=== PATIENT | female | born 1960 | race Caucasian/White ===

== ENCOUNTER 2022-03-28 15:17 | Emergency (ER) | payer OTHER, SELFPAY ==
[2022-03-28 15:18] VITALS: BP 109/54; PULSE 93; RESP 16; TEMP 36.4; O2SAT 97; BMI 29.9
--- NOTE | 2022-03-28 15:47 | EX.ED.DYSGE1 ---
HPI History of Present Illness Chief Complaint: Fever Informant: patient Onset/Context/Timing Onset: Days Context: Gradual Onset Timing: Continuous Current Severity: Mild Maximum Severity: Mild Narrative Narrative: 61-year-old female tested positive for COVID in February also had an GA and received 3 stents was hospitalized at that time. Has history of diabetes, hypertension and chronic kidney disease. Yesterday started having a fever temperature is 10 1-1 02. Treated with ibuprofen and Tylenol. Since today she has had body aches and nausea no vomiting. No cough. No dyspnea. No abdominal pain. No dysuria. Was seen in urgent care and they referred her to the emergency department. Prior similar symptoms: Yes Recent Illness/Hospitalization: Yes PFSH PFSH Allergy/AdvReac Type Severity Reaction Status Date / Time adhesive AdvReac Rash Verified 03/28/22 15:50 Surgical History (Updated 03/28/22 @ 15:51 by Hoda Negron) H/O heart artery stent Social History Smoking Status: Former smoker ROS ROS ED ROS Narrative Fever. Body aches. Review of Systems ROS Unobtainable: Denies due to encephalopathy Constitutional Constitutional ED: Reports fever(s); Denies chills Eyes Eyes: Denies blurry vision ENT ENT ED: Denies ear pain Cardiovascular Cardiovascular: Denies chest pain Respiratory/Chest Respiratory/Chest: Denies cough or dyspnea Gastrointestinal Gastrointestinal: Reports nausea; Denies abdominal pain, constipation, diarrhea or melena Genitourinary Genitourinary ED: Denies dysuria Musculoskeletal Musculoskeletal: Denies arthralgias Integumentary Denies abscess Neurologic Neurologic: Denies headache(s) Psychiatric Psychiatric: Denies anxiety Endocrine Endocrinology: Denies cold intolerance Allergic/Immunologic Allergic/Immunologic ED: Denies mouth swelling, tongue swelling or urticaria EXAM Physical Exam Narrative Exam Narrative: 61-year-old female no acute distress vital signs stable afebrile. H EENT exam unremarkable. Posterior pharynx normal. No erythema or exudate. Mild dryness. Neck nontender no lymphadenopathy. No meningismus. Lungs clear to auscultation bilaterally. Heart regular rhythm no murmur rate about 90. Abdomen soft nontender. Moving all 4 extremities. Calves nontender without edema. No cellulitis. Back nontender. Neurologically awake and alert. Const Vital Signs: 03/28/22 15:18 03/28/22 15:52 03/28/22 16:39 Temperature 97.6 F L 99.2 F H Temperature Source Temporal Oral Pulse Rate 93 96 Respiratory Rate 16 20 H Respiratory Effort Normal Non-Labored Respiratory Pattern Normal Blood Pressure 109/54 L 129/53 H Blood Pressure Mean 72 78 Pulse Ox 97 99 Oxygen Delivery Method Room Air Room Air Positive well nourished and well developed; Negative for cachectic or contractures General Appearance ED: well developed; Negative for cachectic, contractures or pallor Nutritional Appearance: Negative for cachectic HEENT Reports dry mucous membranes Negative for trauma or tenderness Mouth ED: Yes dry mucous membranes Mouth: dry mucous membranes Eyes PERRL and EOMs intact bilaterally General Eye ED: Yes pale conjunctiva; Negative for scleral icterus Neck no lymphadenopathy, supple and no JVD General: Negative for tenderness Chest Wall inspection of chest normal and palpation of chest normal Resp normal respiratory effort and clear to auscultation bilaterally Auscultation: Negative for rales, rhonchi or wheezes Cardio regular rate, regular rhythm, S1 normal heart sound and S2 normal heart sound Rate: Negative for bradycardia or tachycardic Rhythm: Negative for abnormal rhythm GI normal to inspection, nondistended, normoactive bowel sounds, non-tender, non-distended and no masses; Negative for hepatosplenomegaly Inspection: Negative for abdominal distention Auscultation: normoactive bowel sounds; Negative for hyperactive bowel sounds or hypoactive bowel sounds Palpation: soft; Negative for tender, guarding, splenomegaly, mass or rebound tenderness present Back/Spine no CVA tenderness General Back: Negative for CVA tenderness Cervical Spine: Negative for cervical spine tenderness Thoracic Spine / Upper Back: Negative for thoracic spinal tenderness Lumbar Spine / Lower Back: Negative for lumbar spinal tenderness Extremity normal to inspection General Extremety ED: Negative for edema or tenderness General Extremity: Negative for edema Neuro oriented x3 Sensorium / Orientation: alert; Negative for orientation impaired, lethargic or stuporous Motor Exam: strength 5/5 throughout; Negative for general weakness Psych mental status grossly normal Attitude: No agitated Mood & Affect: Negative for depressed Skin no rashes or lesions noted and no wounds General Skin Exam: Negative for jaundice or pallor Rashes: No rashes noted Wounds: Negative for wounds noted MDM MDM MDM Narrative Medical decision making narrative: 61-year-old diabetic female with coronary disease and prior GA presents with a fever. She was COVID-positive a month ago. She worked up for fever. Labs and urinalysis. Chest x-ray. Clinically she looks well. The positive COVID test may be from when she tested positive a month ago and may not be new. Repeat exam she is doing well at 6:40 PM. She will be discharged home to follow-up with her new primary care physician locally that is Dr. Kimi López. She knows to return if worse. Plenty of fluids. Tylenol. Lab Data Attestation: I reviewed the patient's lab results. Lab results narrative: CBC shows white count 9.5 H&H 9.3 and 31.5 history of chronic anemia. Platelets of 250. Electrolytes unremarkable gap of 4 BUN 27 creatinine 2.12 which is consistent with renal insufficiency. Patient has a history of chronic kidney disease stage III. Glucose of 249. LFTs unremarkable. Urinalysis shows no nitrates. 0-5 reds. 10-25 white cells but 5-10 epithelial saucers contaminated. 1+ bacteria. Patient has no old labs available for comparison she does have a history of chronic kidney disease I suspect the anemia is associated with that both of these are chronic. I discussed with the patient and she really did not know specifically her last blood count or creatinine. Labs: Laboratory Results - last 24 hr 03/28/22 03/28/22 03/28/22 16:00 16:00 16:40 WBC 9.5 RBC 3.69 L Hgb 9.3 L Hct 31.5 L MCV 85.4 MCH 25.2 L MCHC 29.5 L RDW Std Deviation 42.0 RDW Coeff of Emilio 13.4 Plt Count 250 MPV 9.6 Immature Gran % (Auto) 1.000 H Neut % (Auto) 89.0 H Lymph % (Auto) 5.1 L Nicholas % (Auto) 4.3 Eos % (Auto) 0.2 Baso % (Auto) 0.4 Absolute Neuts (auto) 8.4 H Absolute Lymphs (auto) 0.48 L Nucleated RBC % 0 Differential Comment SEE COMMENT Platelet Estimate ADEQUATE RBC Morphology NORM C+C Anisocytosis RARE Sodium 136 Potassium 4.6 Chloride 106 Carbon Dioxide 26.0 Anion Gap 4 L BUN 27 H Creatinine 2.12 H Estim Creat Clear Calc 28.11 Est GFR (MDRD) Af Amer 30 L Est GFR (MDRD) Non-Af 25 L BUN/Creatinine Ratio 12.7 Glucose 249 H Calcium 8.8 Total Bilirubin 0.30 AST 24 ALT 28 Alkaline Phosphatase 70 Total Protein 6.9 Albumin 2.8 L Globulin 4.1 Albumin/Globulin Ratio 0.7 L Urine Color Yellow Urine Clarity Sl. Cloudy Urine pH 5.0 Ur Specific Nicholson 1.025 Urine Protein 30 H Urine Glucose (UA) Normal Urine Ketones Negative Urine Occult Blood Negative Urine Nitrite Negative Urine Bilirubin Negative Urine Urobilinogen Normal Ur Leukocyte Esterase 500 H Urine RBC 0-5 SEEN Urine WBC 10-25 SEEN Ur Squamous Epith Cells 5-10 SEEN Urine Bacteria 1+ Urine Mucus 0 SEEN Radiography Chest X-Ray - ED: 1 View, Read by ED Physician, Heart, Lungs, Mediastinum, Bony Structures, No Acute Disease, Chronic Changes, Cardiomegaly, CHF and No Infiltrates Diagnostic Testing: Clinical Impression(s) from Imaging Studies Chest X-Ray 03/28/22 15:55 IMPRESSION: No acute radiographic abnormalities. Electronically Signed: Jeremie Roberson MD at 16:20 EDT , Chest x-ray, portable, single view inter by myself and radiologist shows no acute abnormality. Discharge Plan Triage Chief Complaint: Fever ED Provider: Angus Pimentel Dx/Rx/DC Orders Clinical Impression: Fever, History of COVID-19, History of chronic kidney disease, History of diabetes mellitus Instructions: ED Viral Syndrome (Adult) Primary Care Provider: Care Physician,No Primary Referrals: Kimi López MD [STAFF PHYSICIAN] - 3-5 Days if not improving Care Physician,No Primary [Primary Care Provider] - Activity Restrictions/Additional Instructions: Plenty of fluid and rest. Tylenol for fever. No Motrin due to your kidney function. Follow-up with your doctor if not improving return to emergency department if you are feeling worse. Disposition Disposition: Home, Self Care
[2022-03-28] MEDS: 0.9% Normal Saline 1,000 ML 1000 ML IV (15:49)
--- NOTE | 2022-03-28 15:55 | RAD_ITS ---
INDICATION: fever EXAMINATION/TECHNIQUE: X-RAY - XR Chest 1 View COMPARISON: None. FINDINGS: The lungs are clear. Tortuous and calcified thoracic aorta. The heart is borderline enlarged. No pleural effusion or pneumothorax. Degenerative changes of the thoracic spine. RAD/Chest 1 View (Portable) IMPRESSION: No acute radiographic abnormalities. Electronically Signed: Jeremie Roberson MD at 16:20 EDT ,
[2022-03-28 16:04] LABS: Absolute Lymphocyte Count 0.48 X10^3/uL (0.83-4.51); Absolute Neutrophil Count 8.4 X10^3/uL (2.0-7.7); Basophil# 0.04 X10^3/uL; Basophil% 0.4 % (0-1); Eosinophil# 0.02 X10^3/uL; Eosinophils% 0.2 % (0-5); Hematocrit 31.5 % (37-47); Hemoglobin 9.3 g/dL (12.0-15.0); Lymphocyte # 0.48 X10^3/ul (0.83-4.51); Lymphocyte % 5.1 % (19-41); Mean Corp Hgb Conc 29.5 g/dL (32-36); Mean Corpuscular Hgb 25.2 pg (27.0-32.0); Mean Corpuscular Volume 85.4 fL (81-99); Mean Platelet Vol. 9.6 fl (6.2-12.0); Monocyte# 0.41 X10^3/uL; Monocyte% 4.3 % (0-10); NRBC Flagged by Analyzer 0 % (0-5); Neutrophil # 8.42 X10^3/uL (2.7-7.7); POSITIVE DIFFERENTIAL YES; Platelet Count 250 K/mm3 (150-450); RBC Distribution Width CV 13.4 % (11.6-14.6); Red Blood Count 3.69 M/mm3 (4.2-5.4); White Blood Count 9.5 K/mm3 (4.4-11.0)
[2022-03-28 16:24] LABS: ALB/GLOB Ratio 0.7 RATIO (0.9-2.4); AST(SGOT) 24 U/L (15-37); Alanine Aminotransfer ALT/SGPT 28 U/L (13-56); Albumin, Serum 2.8 g/dL (3.2-5.0); Alkaline Phosphatase 70 U/L (45-117); Anion Gap 4 (5-15); BUN 27 mg/dL (7-18); BUN/Creat Ratio 12.7 RATIO (10-20); Calcium,Total 8.8 mg/dL (8.5-10.1); Chloride 106 mmol/L (98-107); Creatinine, Serum 2.12 mg/dL (0.55-1.02); EST Glomerular Filtration Rate 25 mL/min (>60); Est Glom Filt Rate - Afr Amer 30 mL/min (>60); Estimated Creatinine Clearance 28.11 ml/min; Globulin 4.1 g/dL (2.2-4.2); Glucose 249 mg/dL (74-106); Potassium 4.6 mmol/L (3.5-5.1); Protein, Total 6.9 g/dL (6.4-8.2); Sodium Level 136 mmol/L (136-145)
[2022-03-28 16:39] VITALS: BP 129/53; PULSE 96; RESP 20; TEMP 37.3; O2SAT 99
[2022-03-28] MEDS: Acetaminophen 500 MG Tablet 1000 MG PO (16:52)
[2022-03-28 16:53] LABS: Mucous, Urine 0 SEEN /hpf (<or=2+)
[2022-03-28 16:56] LABS: Differential Indicated SCAN CRITERIA MET
[2022-03-28 16:58] LABS: Anisocytosis RARE; Platelet Estimate ADEQUATE (ADEQ); Red Cell Morphology NORM C+C NORMAL (NORM C&C)
[2022-03-28 17:22] LABS: Color, Urine Yellow (Yellow); Glucose, Dipstick Normal (Normal); Ketone-Dipstick Negative (Negative); Leukocyte Esterase-Dipstick 500 /ul (Negative); Nitrite-Dipstick Negative (Negative); Occult Blood-Urine Negative /ul (Negative); Protein-Dipstick 30 mg/dl (Negative); Specific Gravity, Urine 1.025 (1.002-1.030); Urine Bilirubin Dipstick Negative (Negative); Urine Clarity Sl. Cloudy (Clear); Urine Urobilinogen Normal (Normal)
[2022-03-28 17:39] LABS: Red Blood Cells-Urine 0-5 SEEN /hpf (0-5); White Blood Cells 10-25 SEEN /hpf (0-5)
[2022-03-28 17:40] LABS: Bacteria 1+ /hpf (None Seen); Squamous Epithelial Cells - UA 5-10 SEEN /hpf (5-10)
[2022-03-28 18:59] VITALS: BP 146/63; PULSE 101; RESP 18; TEMP 38.4; O2SAT 94
== END 2022-03-28 19:00 | disposition home or self-care (01) ==
PROVIDERS: Emergency Provider Emergency Medicine; Visit Provider Emergency Medicine
DX: R50.9 Fever, unspecified (principal); E11.22 Type 2 diabetes mellitus with diabetic chronic kidney disease; I25.10 Atherosclerotic heart disease of native coronary artery without angina pectoris; N18.9 Chronic kidney disease, unspecified; I12.9 Hypertensive chronic kidney disease with stage 1 through stage 4 chronic kidney disease, or unspecified chronic kidney disease; Z87.891 Personal history of nicotine dependence; Z86.16 Personal history of COVID-19
CPT/HCPCS: 71045; 80053; 81001; 85025; 87086; 87088; 96360; 99284; J7030; A4216

== ENCOUNTER → 2022-04-30 | Outpatient (CLI) | payer OTHER, MEDICAID, SELFPAY ==
[2022-04-30 09:36] LABS: Bacteria 0 SEEN /hpf (None Seen); Mucous, Urine 0 SEEN /hpf (<or=2+); Red Blood Cells-Urine 0 SEEN /hpf (0-5)
[2022-04-30 10:21] LABS: Absolute Lymphocyte Count 1.22 X10^3/uL (0.83-4.51); Absolute Neutrophil Count 9.2 X10^3/uL (2.0-7.7); Basophil# 0.13 X10^3/uL; Basophil% 1.1 % (0-1); Eosinophil# 0.26 X10^3/uL; Eosinophils% 2.2 % (0-5); Hematocrit 31.5 % (37-47); Hemoglobin 9.3 g/dL (12.0-15.0); Lymphocyte # 1.22 X10^3/ul (0.83-4.51); Lymphocyte % 10.4 % (19-41); Mean Corp Hgb Conc 29.5 g/dL (32-36); Mean Corpuscular Hgb 24.3 pg (27.0-32.0); Mean Corpuscular Volume 82.5 fL (81-99); Mean Platelet Vol. 9.7 fl (6.2-12.0); Monocyte# 0.79 X10^3/uL; Monocyte% 6.7 % (0-10); NRBC Flagged by Analyzer 0 % (0-5); Neutrophil # 9.24 X10^3/uL (2.7-7.7); Neutrophil % 78.9 % (47-70); Platelet Count 381 K/mm3 (150-450); RBC Distribution Width CV 14.4 % (11.6-14.6); RBC Distribution Width SD 43.4 fl (35.1-43.9); Red Blood Count 3.82 M/mm3 (4.2-5.4); White Blood Count 11.7 K/mm3 (4.4-11.0)
[2022-04-30 11:03] LABS: Hemoglobin A1c 6.8 % (3.8-5.6)
[2022-04-30 11:16] LABS: ALB/GLOB Ratio 0.7 RATIO (0.9-2.4); AST(SGOT) 15 U/L (15-37); Alanine Aminotransfer ALT/SGPT 19 U/L (13-56); Albumin, Serum 3.1 g/dL (3.2-5.0); Alkaline Phosphatase 73 U/L (45-117); Anion Gap 8 (5-15); BUN 19 mg/dL (7-18); BUN/Creat Ratio 15.2 RATIO (10-20); Chloride 107 mmol/L (98-107); Cholesterol 167 mg/dL (200); Creatinine, Serum 1.25 mg/dL (0.55-1.02); EST Glomerular Filtration Rate 46 mL/min (>60); Est Glom Filt Rate - Afr Amer 56 mL/min (>60); Globulin 4.3 g/dL (2.2-4.2); Glucose 198 mg/dL (74-106); High Density Lipoprotein 48 mg/dL; Potassium 3.6 mmol/L (3.5-5.1); Protein, Total 7.4 g/dL (6.4-8.2); Sodium Level 140 mmol/L (136-145); Triglycerides 192 mg/dL
[2022-04-30 11:17] LABS: Thyroid Stim Hormone (TSH) 1.55 uIU/mL (0.358-3.74); Very Low Density Lipoprotein 38 mg/dL (5-40)
[2022-04-30 12:09] LABS: Color, Urine Yellow (Yellow); Glucose, Dipstick Normal (Normal); Ketone-Dipstick 5 mg/dl (Negative); Leukocyte Esterase-Dipstick 100 /ul (Negative); Nitrite-Dipstick Negative (Negative); Occult Blood-Urine Negative /ul (Negative); Protein-Dipstick 15 mg/dl (Negative); Urine Bilirubin Dipstick Negative (Negative); Urine Clarity Sl. Cloudy (Clear); Urine Urobilinogen Normal (Normal)
[2022-04-30 12:24] LABS: Squamous Epithelial Cells - UA 5-10 SEEN /hpf (5-10); White Blood Cells 5-10 SEEN /hpf (0-5)
== END | disposition home or self-care (01) ==
LOC: MTLAB 09:34
PROVIDERS: PCP Internal Medicine; Referring Provider Physician Assistant; Visit Provider Physician Assistant
DX: M79.7 Fibromyalgia (principal); M06.9 Rheumatoid arthritis, unspecified; I73.81 Erythromelalgia; Z86.39 Personal history of other endocrine, nutritional and metabolic disease; Z87.448 Personal history of other diseases of urinary system; Z86.16 Personal history of COVID-19
CPT/HCPCS: 36415; 80053; 80061; 81001; 83036; 84443; 85025

== ENCOUNTER → 2022-09-10 | Outpatient (CLI) | payer MEDICAID, SELFPAY ==
[2022-09-10 12:23] LABS: Absolute Lymphocyte Count 1.54 X10^3/uL (0.83-4.51); Absolute Neutrophil Count 10.9 X10^3/uL (2.0-7.7); Basophil# 0.14 X10^3/uL; Eosinophil# 0.35 X10^3/uL; Eosinophils% 2.5 % (0-5); Hematocrit 26.8 % (37-47); Hemoglobin 7.2 g/dL (12.0-15.0); Lymphocyte # 1.54 X10^3/ul (0.83-4.51); Lymphocyte % 11.2 % (19-41); Mean Corp Hgb Conc 26.9 g/dL (32-36); Mean Corpuscular Hgb 19.9 pg (27.0-32.0); Mean Corpuscular Volume 74.2 fL (81-99); Mean Platelet Vol. 9.4 fl (6.2-12.0); Monocyte# 0.76 X10^3/uL; Monocyte% 5.5 % (0-10); NRBC Flagged by Analyzer 0 % (0-5); Neutrophil # 10.92 X10^3/uL (2.7-7.7); Neutrophil % 79.3 % (47-70); Platelet Count 422 K/mm3 (150-450); RBC Distribution Width CV 16.5 % (11.6-14.6); RBC Distribution Width SD 43.9 fl (35.1-43.9); Red Blood Count 3.61 M/mm3 (4.2-5.4); White Blood Count 13.8 K/mm3 (4.4-11.0)
[2022-09-10 12:53] LABS: Vitamin D,25 Hydroxy 23.6 ng/mL
[2022-09-10 13:08] LABS: ALB/GLOB Ratio 0.8 RATIO (0.9-2.4); AST(SGOT) 10 U/L (15-37); Alanine Aminotransfer ALT/SGPT 18 U/L (13-56); Albumin, Serum 2.8 g/dL (3.2-5.0); Alkaline Phosphatase 80 U/L (45-117); Anion Gap 10 (5-15); BUN 18 mg/dL (7-18); BUN/Creat Ratio 17.5 RATIO (10-20); Calcium,Total 8.5 mg/dL (8.5-10.1); Chloride 108 mmol/L (98-107); Cholesterol 128 mg/dL (200); Creatinine, Serum 1.03 mg/dL (0.55-1.02); EST Glomerular Filtration Rate 58 mL/min (>60); Est Glom Filt Rate - Afr Amer 70 mL/min (>60); Free T3 2.4 pg/mL (2.18-3.98); Globulin 3.4 g/dL (2.2-4.2); Glucose 163 mg/dL (74-106); High Density Lipoprotein 55 mg/dL; Potassium 3.8 mmol/L (3.5-5.1); Protein, Total 6.2 g/dL (6.4-8.2); Sodium Level 142 mmol/L (136-145); T4 Free Direct 1.22 ng/dL (0.76-1.46); Thyroid Stim Hormone (TSH) 1.57 uIU/mL (0.358-3.74); Triglycerides 194 mg/dL; Very Low Density Lipoprotein 39 mg/dL (5-40)
[2022-09-12 08:15] LABS: Iron Binding Capacity,Total 410 ug/dL (250-450)
== END | disposition home or self-care (01) ==
LOC: MTLAB 09:44
PROVIDERS: PCP Internal Medicine; Referring Provider Internal Medicine; Visit Provider Internal Medicine
DX: M06.9 Rheumatoid arthritis, unspecified (principal); I73.81 Erythromelalgia; E11.9 Type 2 diabetes mellitus without complications; K21.9 Gastro-esophageal reflux disease without esophagitis; E55.9 Vitamin D deficiency, unspecified; D64.9 Anemia, unspecified
CPT/HCPCS: 36415; 80053; 80061; 82306; 83550; 84439; 84443; 84481; 85025

== ENCOUNTER → 2022-09-11 | Outpatient (CLI) | payer MEDICAID, SELFPAY ==
--- NOTE | 2022-09-11 14:31 | BI_ITS ---
MAMMOGRAPHY - BILATERAL SCREENING REASON FOR EXAM: Female, 62 years old. Routine annual screening examination. PERTINENT HISTORY: Aunt with breast cancer. Remote left excisional breast biopsy. TECHNIQUE: Digital bilateral breast niru (3D mammographic acquisition) in the CC and MLO projections. 2-D mediolateral oblique (MLO) and craniocaudad (CC) views of both breasts were obtained. CAD: Full Field Digital Mammography with Computer Added Detection was performed. COMPARISON: Comparison is made with prior outside examination dated 08/07/2021. FINDINGS: Breast Composition: There are scattered areas of fibroglandular density. There are no dominant masses or suspicious calcifications. Stable asymmetry of breast tissue or more breast tissue is seen in the anterior upper lateral aspect of the left breast as compared to the right side. Benign appearing bilateral axillary lymph nodes. No other significant abnormalities are identified. There has been no significant change since the prior study. BI/SCRN MAMM (CAD)W/NIRU BILAT IMPRESSION: Stable bilateral screening mammogram. Yearly follow-up mammogram recommended. (A) ASSESSMENT CATEGORY: BIRADS Category 2: Benign. A letter regarding these results will be sent to the patient by the facility within 30 days. Approximately 10% of breast cancers are not detected by mammography. A normal mammogram should not delay biopsy of a clinically suspicious abnormality. [id number] Electronically Signed: Franco Sullivan MD at 15:35 EST ,
== END | disposition home or self-care (01) ==
LOC: OPBI 14:30
PROVIDERS: PCP Internal Medicine; Visit Provider Internal Medicine
DX: Z12.31 Encounter for screening mammogram for malignant neoplasm of breast (principal); Z80.3 Family history of malignant neoplasm of breast
CPT/HCPCS: 77063; 77067

== ENCOUNTER → 2022-09-12 | Outpatient (CLI) | payer MEDICAID, SELFPAY ==
[2022-09-12 11:00] LABS: Vitamin B12 601 pg/mL (211-911)
[2022-09-12 12:00] LABS: Iron 12 ug/dL (50-170)
== END | disposition home or self-care (01) ==
LOC: MTLAB 08:46
PROVIDERS: PCP Internal Medicine; Referring Provider Internal Medicine; Visit Provider Internal Medicine
DX: D64.9 Anemia, unspecified (principal)
CPT/HCPCS: 36415; 82607; 82746; 83540

== ENCOUNTER 2022-09-23 09:37 | Outpatient (CLI) | payer MEDICAID, SELFPAY ==
[2022-09-23 10:05] VITALS: BP 127/56; PULSE 85; RESP 16; TEMP 36.6; O2SAT 98; BMI 27.9
[2022-09-23] MEDS: 0.9% NaCl Peripheral Flush Adult/Peds IV (10:30)
[2022-09-23] MEDS: 0.9% NaCl IVPB Med Flush (250 mL) 15 ML IV (10:30)
[2022-09-23 15:15] VITALS: BP 132/63; TEMP 36.3
== END 2022-09-23 23:59 | disposition home or self-care (01) ==
PROVIDERS: PCP Internal Medicine; Referring Provider Internal Medicine; Visit Provider Internal Medicine
DX: D64.9 Anemia, unspecified (principal); N18.31 Chronic kidney disease, stage 3a
CPT/HCPCS: 96365; 96366 ×3; J7050; A4216; J2916

== ENCOUNTER 2022-09-30 09:48 | Outpatient (CLI) | payer MEDICAID, SELFPAY ==
[2022-09-30] MEDS: 0.9% NaCl Peripheral Flush Adult/Peds IV (10:07)
[2022-09-30] MEDS: 0.9% NaCl IVPB Med Flush (250 mL) 15 ML IV (10:09)
[2022-09-30 10:10] VITALS: BP 148/71; PULSE 83; TEMP 36.2
[2022-09-30 14:51] VITALS: BP 158/70; PULSE 88; RESP 16; TEMP 36.3
== END 2022-09-30 23:59 | disposition home or self-care (01) ==
PROVIDERS: PCP Internal Medicine; Referring Provider Internal Medicine; Visit Provider Internal Medicine
DX: D64.9 Anemia, unspecified (principal); N18.31 Chronic kidney disease, stage 3a
CPT/HCPCS: 96365; 96366 ×3; J7050; A4216; J2916

== ENCOUNTER → 2022-10-17 | Outpatient (CLI) | payer MEDICAID, SELFPAY ==
[2022-10-17] MEDS: 0.9% NaCl Peripheral Flush Adult/Peds IV (10:01)
[2022-10-17 10:09] VITALS: BP 151/72; PULSE 105; RESP 16; TEMP 36.1; BMI 43.0
[2022-10-17] MEDS: 0.9% NaCl IVPB Med Flush (250 mL) 15 ML IV (10:17)
[2022-10-17 14:55] VITALS: BP 128/60; PULSE 89; RESP 16; TEMP 36.4
== END | disposition home or self-care (01) ==
PROVIDERS: PCP Internal Medicine; Referring Provider Internal Medicine; Visit Provider Internal Medicine
DX: D64.9 Anemia, unspecified (principal)
CPT/HCPCS: 96374; J7050; A4216; J2916

== ENCOUNTER 2022-10-24 09:44 | Outpatient (CLI) | payer MEDICAID, SELFPAY ==
[2022-10-24] MEDS: 0.9% NaCl Peripheral Flush Adult/Peds IV (09:52)
[2022-10-24] MEDS: 0.9% NaCl IVPB Med Flush (250 mL) 15 ML IV (09:53)
[2022-10-24 10:02] VITALS: BP 130/63; PULSE 94; RESP 16; TEMP 35.9; BMI 27.0
[2022-10-24 14:42] VITALS: BP 116/56; PULSE 82; RESP 16; TEMP 36.3
== END 2022-10-24 23:59 | disposition home or self-care (01) ==
PROVIDERS: PCP Internal Medicine; Referring Provider Internal Medicine; Visit Provider Internal Medicine
DX: D64.9 Anemia, unspecified (principal); N18.30 Chronic kidney disease, stage 3 unspecified
CPT/HCPCS: 96365; 96366 ×3; J7050; A4216; J2916

== ENCOUNTER 2022-11-01 09:26 | Day surgery (SDC) | payer MEDICAID, SELFPAY ==
--- NOTE | 2022-11-01 09:40 | PCM.HP.BLA ---
History and Physical Date of Admission: 11/01/22 Chief Complaint: stomach pain/egd Is patient in pain?: Yes Allergies Seasonal Allergies: Uncoded Allergy (Mild, Verified 10/01/22 15:00) HivesIodinated Contrast Media [IVP dye] Allergy (Verified 10/01/22 15:00) Anaphylaxislevofloxacin [From Levaquin] Allergy (Verified 10/01/22 15:00) PT UNSURE OF REACTIONliraglutide [From Victoza] Allergy (Verified 10/01/22 15:00) PT UNSURE OF REACTIONSulfa (Sulfonamide Antibiotics) [sulfa drugs] Allergy (Verified 10/01/22 15:00) PT UNSURE OF REACTIONacetaminophen [From Percocet] Adverse Reaction (Verified 10/01/22 15:00) Itchingadhesive Adverse Reaction (Verified 10/01/22 15:00) Rashhydrochlorothiazide Adverse Reaction (Verified 10/01/22 15:00) PT UNSURE OF REACTIONhydrocodone Adverse Reaction (Verified 10/01/22 15:00) Itchingmethylprednisolone Adverse Reaction (Verified 10/01/22 15:00) hallucinationsoxycodone [From Percocet] Adverse Reaction (Verified 10/01/22 15:00) Itching Medications amlodipine 5 mg tablet 5 mg PO DAILY 04/02/22 [History Confirmed 08/26/22] aspirin 81 mg tablet,delayed release (Adult Aspirin Regimen) 81 mg PO DAILY 04/02/22 [History Confirmed 08/26/22] famotidine 40 mg tablet 40 mg PO DAILY 04/02/22 [History Confirmed 08/26/22] hydroxychloroquine 200 mg tablet 200 mg PO BID 04/02/22 [History Confirmed 08/26/22] ibuprofen 800 mg tablet 800 mg PO PRN 04/02/22 [History Confirmed 08/26/22] nystatin 100,000 unit/gram topical powder (Nystop) gm topical 04/02/22 [History Confirmed 08/26/22] ondansetron HCl 8 mg tablet 8 mg PO PRN 04/02/22 [History Confirmed 08/26/22] prednisone 5 mg tablet 5 mg PO DAILY 04/02/22 [History Confirmed 08/26/22] venlafaxine 150 mg capsule,extended release 24 hr (Effexor XR) 150 mg PO DAILY 04/02/22 [History Confirmed 08/26/22] venlafaxine 75 mg tablet 75 mg PO DAILY 04/02/22 [History Confirmed 08/26/22] lisinopril 5 mg tablet 5 mg PO DAILY #90 tabs 07/25/22 [Rx Confirmed 08/26/22] carvedilol 3.125 mg tablet 3.125 mg PO BID #180 tabs 07/29/22 [Rx Confirmed 08/26/22] clopidogrel 75 mg tablet 75 mg PO DAILY #90 tabs 07/29/22 [Rx Confirmed 08/26/22] levothyroxine 88 mcg tablet (Euthyrox) 88 mcg PO DAILY #90 tabs 08/15/22 [Rx Confirmed 08/26/22] biotin 5,000 mcg disintegrating tablet 10,000 mcg PO DAILY 08/26/22 [History Confirmed 08/26/22] butalbital 50 mg-acetaminophen 325 mg-caffeine 40 mg-codeine 30 mg cap 1 cap PO Q4H PRN 08/26/22 [History Confirmed 08/26/22] glipizide 10 mg tablet, extended release 24 hr 10 mg PO BID #180 tabs 08/26/22 [Rx] hyoscyamine sulfate 0.125 mg tablet 0.125 mg PO BID-QID PRN 08/26/22 [History Confirmed 08/26/22] valacyclovir 1 gram tablet (Valtrex) 1,000 mg PO DAILY PRN 08/26/22 [History Confirmed 08/26/22] vitamin B complex (B Complex-Vitamin B12 tablet) 1 tab PO DAILY 08/26/22 [History Confirmed 08/26/22] PFSH Medical History? Acid reflux Anemia Breast cyst Carpal tunnel syndrome Erythromelalgia Fibromyalgia Foot fracture, left Foot fracture, right Gastroenteritis Hepatitis History of chronic kidney disease History of diabetes mellitus Infectious mononucleosis Measles Migraines Neuropathy Osteopenia Pneumonia Rheumatoid arthritis Seasonal allergies Shingles Small fiber neuropathy UTI (urinary tract infection) Varicella Surgical History? H/O heart artery stent Hx of appendectomy Hx of cholecystectomy Hx of tonsillectomy Family History?(Updated 10/01/22 @ 14:58 by Alize Lr) Grandfather Cancer Heart diseaseFather Cancer Heart disease DiabetesUncle CancerAunt CancerBrother Heart disease Social History? Smoking Status:? Former smoker alcohol intake:? never substance use type:? does not use caffeine:? Yes Type: carbonated beverages and tea what type of physical activity do you participate in:? none seatbelt use:? always do you feel safe at home:? Yes HPI HPI HPI: 62-year-old female who has had fairly a long-term history of iron deficiency anemia and difficulty with iron absorption.? She is being referred because she has had a very long-term history of abdominal pain.? She said things going back to 2012 she had an upper endoscopy while in [place].? She has had a previous history of cholecystectomy and an appendectomy.? She denies any change in her stool habits.? Her pain improves with hyoscyamine.? A trial of sucralfate was also recommended.? As of September 10, 2022 her white blood cell count was 13.8 with a hemoglobin of 7.2 hematocrit 26.8 platelet count of 4 and 22,000.? BUN is 18 and creatinine 1.03.? Albumin is 2.8 with a total protein of 6.2 The patient is unable to tolerate oral iron.? She has chronic anemia.? Chronic abdominal pain which at times increases in severity.? She thinks her most recent [place] was 2015 [place] She is more recently moved to [place] and has recently become established. She states that she has had at least a couple previous colonoscopies on each occasion she has had polyps found.? She denies bright red blood per rectum or melena.? There is been no unexpected weight loss. She does note generalized epigastric discomfort ROS General General: Yes weight change and fatigue; No appetite, colon cancer or breast cancer HEENT HEENT: No difficulty swallowing, eye injury, eye surgery, swollen glands or hoarseness Endo Endocrine: Yes thyroid disease and diabetes mellitus; No thyroid cancer, Hair loss, heat intolerance or cold intolerance Skin Skin: No rash or changing moles Musc Musculoskeletal: Yes back problems, arthritis and rheumatoid arthritis; No gout or joint pain Cardio Cardiovascular: Yes heart disease, high blood pressure, heart attack and heart stent; No murmur, pacemaker, atrial fibrillation, palpitations, shortness of breat with exertion or chest pain Psych Psychiatric: Yes anxiety; No depression or hearing voices Resp Respiratory: Yes shortness of breath, Yes sleep apnea, Yes cough, No COPD, No asthma, No emphysema and No wheezing Gastro Gastrointestinal: Yes abdominal pain, Yes nausea or vomiting, Yes diarrhea, No constipation, No blood in stool, Yes acid reflux, No hemorrhoids, No ulcers, No gallbladder problem and No black,tarry stools [place] Hematologic: Yes blood thinners, No blood disorders, No bleeding, Yes anemia and No blood clots Neuro Neurologic: Yes numbness and Yes tingling Exam Const General: cooperative and comfortable Other: The patient appears to be quite pale.? She is not in any acute distress Eyes General: appearance normal, both eyes and all related structures Neck Other: Cervical and thoracic kyphosis noted Chest Other: Increased anterior posterior diameter from previous tobacco use/COPD Resp Other: Slightly diminished respiratory excursion, clear in the apices Cardio Rate: regular rate Rhythm: regular rhythm GI Other: Soft, diffusely tender to even light palpation, normal bowel sounds Musc Other: Cervical kyphosis Skin General: no rashes or lesions noted Neuro General: patient alert, patient awake and patient oriented x3 Psych Appearance: grossly normal Assessment and Plan Assessment and Plan (1) Anemia: ?Status:?Acute (2) Abdominal pain: ?Status:?Acute ?Plan: The patient does appear to be quite pale and anemic.? She is on clopidogrel secondary to coronary stents placed secondary to myocardial infarction February 2022.? We will keep her on her anticoagulant.? I propose for her combined esophagogastroduodenoscopy with possible biopsy and colonoscopy with possible biopsy or polypectomy as indicated.? She is aware of technique, benefit, risk and alternatives.? We will utilize monitored anesthesia care. I appreciate the opportunity of assisting with her surgical management.? We will try to schedule and expedite her investigations. Copy: Dr. Kimi Flood M.D., F.A.C.S. I have examined the patient and the H&P has been reviewed. There are no clinical changes since date of exam. Golden Flood M.D., F.A.C.S.
[2022-11-01] MEDS: Lactated Ringers 1,000 ML 15 ML IV (09:59)
[2022-11-01 10:04] VITALS: BP 135/52; PULSE 83; RESP 18; TEMP 36.4; O2SAT 95; BMI 26.8
--- NOTE | 2022-11-01 10:30 | EGD_PTH ---
PATIENT: ESTELLA SU LOC: EN U#:[id number] AGE/SX: 62/F ROOM: RE11/01/[address]: Dr. Golden Flood MD : 1960 BED: DIS: 11/01/2022 SPEC #: [id number] RECD: 11/01/22 12:58 STATUS: JAYSHREE MERRILL #: [id number] LANRE: 11/01/22 10:[address]: Golden Flood DEPT: SURGICAL PATHOLOGY RECD BY: Marycarmen De La Vega ENTERED: 11/04/22 11:18 SP TYPE: EGD BIOPSY DEMARCO DR: Dr. Kimi López MD Tissues: A - Gastric mucous membrane B - COLON BIOPSY Procedures: Surgery Specimen Level IV HEADER OPERATION: [place] with biopsy[place] [place] DIAGNOSIS: Abdominal pain TISSUE SUBMITTED: A ? Gastric antrum for H. pylori, B ? Hepatic flexure mass biopsy MICROSCOPIC DIAGNOSIS A. Gastric antrum, biopsy: Chronic gastritis. See comment. B. Colonic polyp at hepatic flexure, biopsy: Invasive well differentiated adenocarcinoma. See comment. AM:vicente 11/05/2022 COMMENT A. The results of immunohistochemistry for Helicobacter pylori will be reported separately ([id number]). B. Immunohistochemistry ([id number]) supports the above diagnosis. Case has been reviewed in consultation with Dr. Logan who concurs with the above diagnosis. IDC:[id number] MICROSCOPIC DESCRIPTION Slides are reviewed. GROSS DESCRIPTION A - Received in fixative is one container labeled with the patient's name and designated gastric antrum biopsy. The specimen consists of one irregular fragment of light emery soft tissue that measures 0.4 x 0.4 x 0.1 cm. The specimen is totally submitted in one cassette. B - Received in fixative is one container labeled with the patient's name and designated hepatic flexure mass biopsy. The specimen consists of multiple irregular fragments of light emery soft tissue that in aggregate measure 0.6 x 0.8 x 0.1 cm. The specimen is totally submitted in one cassette. / SJ:vicente 11/04/2022 TC:0 CPT: 72269 x2
--- NOTE | 2022-11-01 10:30 | IMM_PTH ---
PATIENT: ESTELLA SU LOC: EN U#:[id number] AGE/SX: 62/F ROOM: RE11/01/[address]: Dr. Golden Flood MD : 1960 BED: DIS: 11/01/2022 SPEC #: [id number] RECD: 11/04/22 09:24 STATUS: JAYSHREE REMireya #: [id number] LANRE: 11/01/22 10:[address]: Golden Flood DEPT: IMMUNOHISTOCHEMISTRY RECD BY: Lorenza Retana ENTERED: 11/04/22 09:25 SP TYPE: IMMUNO OTHR DR: Dr. Kimi López MD Tissues: A - Stomach, NOS B - Stomach, NOS Procedures: H Pylori (initial) MSH2 (add) MLH-1 (add) MSH6 (add) Anti-PMS2 (add) CK20 (add) CK7 (add) MILLER-2 (add) KI-67 (add) P53 (add) Pankeratin (initial) PHYSICIAN & [address] [address] SPECIMEN INFORMATION: Tissue Source: A - Gastric antrum, B ? Hepatic flexure mass Clinical Info: Abdominal pain Specimen Number: [id number] A & B CPT code: 48567 x2, 71732 x9 METHODOLOGY: Deparaffinized sections of prefer/formalin-fixed tissue or PAP/DQ stained slides are incubated with monoclonal/polyclonal antibodies/oligonucleotide probes. Localization is made via biotin free immunoperoxidase method. Appropriate controls are performed and reacted as expected. Results on target cell population are indicated in the following table: RESULTS: ANTIBODY / CLONE RESULT Block A H Pylori (polyclonal) negative Block B AE1-3 (AE1/AE3/PCK26) positive CK7 (OV-TL12/30) negative CK20 (KS20.8) positive, focal MILLER-2 (SP21) positive MLH-1 (M1) positive MSH2 (25D12) positive MSH6 (44) positive PMS2 (VQZ4391) positive Ki-67 (30-9) positive, 75% P53 (DO-7) positive, 80% These tests were developed and their performance characteristics determined by [facility]. They may not have been cleared or approved by the U.S. Food and Drug Administration. The FDA has determined that such clearance or approval is not necessary. The above immunohistochemical/dualISH markers are ordered and reviewed by the Pathologist. INTERPRETATION: A. Gastric antrum, biopsy: Negative for Helicobacter pylori organisms. B. Colonic polyp at hepatic flexure, biopsy: Invasive adenocarcinoma. Result of Microsatellite Instability Study: Negative (no loss of mismatch protein; no microsatellite instability detected). AM:vicente 11/05/2022
[2022-11-01 11:01] LABS: Bedside Glucose 257 mg/dL (74-106)
--- NOTE | 2022-11-01 11:34 | OP.EGD_ITS ---
Patient Name: Lisbeth Craven Procedure Date: 11/01/2022 10:51 AM Date of : 1960 Age: 62 Procedure: Upper GI endoscopy Indications: Generalized abdominal pain Providers: Golden Flood MD Referring MD: Golden Flood MD Medicines: See the Anesthesia note for documentation of the administered medications Complications: No immediate complications. Procedure: Pre-Anesthesia Assessment: - Prior to the procedure, a History and Physical was performed, and patient medications and allergies were reviewed. The patient's tolerance of previous anesthesia was also reviewed. The risks and benefits of the procedure and the sedation options and risks were discussed with the patient. All questions were answered, and informed consent was obtained. Prior Anticoagulants: The patient has taken Plavix (clopidogrel), last dose was day of procedure. ASA Grade Assessment: III - A patient with severe systemic disease. After reviewing the risks and benefits, the patient was deemed in satisfactory condition to undergo the procedure. After obtaining informed consent, the endoscope was passed under direct vision. Throughout the procedure, the patient's blood pressure, pulse, and oxygen saturations were monitored continuously. The pediatric colonoscope was introduced through the mouth, and advanced to the second part of duodenum. The upper GI endoscopy was accomplished without difficulty. The patient tolerated the procedure well. Scope In: 11:03:12 AM Scope Out: 11:10:22 AM Total Procedure Duration Time 0 hours 7 minutes 10 seconds Findings: The Z-line was regular and was found 40 cm from the incisors. The entire examined stomach was normal. Biopsies were taken with a cold forceps for histology. The examined duodenum was normal. Impression: - Z-line regular, 40 cm from the incisors. - Normal stomach. Biopsied. - Normal examined duodenum. Recommendation: - Discharge patient to home. - Resume previous diet. - Continue present medications. - Return to my office in 1 week. Procedure Code(s): --- Professional --- 71881, Esophagogastroduodenoscopy, flexible, transoral; with biopsy, single or multiple Diagnosis Code(s): --- Professional --- R10.84, Generalized abdominal pain CPT copyright 2017 [employer]. All rights reserved. The codes documented in this report are preliminary and upon pacs specialist review may be revised to meet current compliance requirements. Golden Flood MD 11/01/2022 11:34:00 AM This report has been signed electronically. Number of Addenda: 0 Note Initiated On: 11/01/2022 10:51 AM
[2022-11-01 11:35] VITALS: BP 105/51; BP 135/52; PULSE 76; RESP 18; TEMP 36.4; O2SAT 96
--- NOTE | 2022-11-01 11:35 | OP.CCLET_ITS ---
11/01/2022 Kimi López [facility] [address] [place] [address] Re : Upper GI endoscopy procedure for Lisbeth Craven Dear Dr. López This procedure was performed on Tuesday, November 01, 2022. My impressions and recommendations are as follows: Impressions : - Z-line regular, 40 cm from the incisors. - Normal stomach. Biopsied. - Normal examined duodenum. Recommendations : - Discharge patient to home. - Resume previous diet. - Continue present medications. - Return to my office in 1 week. My findings are described in the full procedure note, which is enclosed. If I can be of further assistance, please feel free to contact me at Doctor phone number(s): Work: . Sincerely, Golden Flood MD 11/01/2022 11:34:00 AM This report has been signed electronically.
--- NOTE | 2022-11-01 11:40 | OP.COLON_ITS ---
Patient Name: Lisbeth Craven Procedure Date: 11/01/2022 11:11 AM Date of : 1960 Age: 62 Procedure: Colonoscopy Indications: Generalized abdominal pain Providers: Golden Flood MD Referring MD: Golden Flood MD Medicines: See the Anesthesia note for documentation of the administered medications Patient Profile: Last Colonoscopy: date unknown. Unable to locate last colonoscopy report. Complications: No immediate complications. Procedure: Pre-Anesthesia Assessment: - Prior to the procedure, a History and Physical was performed, and patient medications and allergies were reviewed. The patient's tolerance of previous anesthesia was also reviewed. The risks and benefits of the procedure and the sedation options and risks were discussed with the patient. All questions were answered, and informed consent was obtained. Prior Anticoagulants: The patient has taken Plavix (clopidogrel), last dose was day of procedure. ASA Grade Assessment: III - A patient with severe systemic disease. After reviewing the risks and benefits, the patient was deemed in satisfactory condition to undergo the procedure. After I obtained informed consent, the scope was passed under direct vision. Throughout the procedure, the patient's blood pressure, pulse, and oxygen saturations were monitored continuously. The pediatric colonoscope was introduced through the anus and advanced to the cecum, identified by appendiceal orifice and ileocecal valve. The colonoscopy was performed without difficulty. The patient tolerated the procedure well. The quality of the bowel preparation was adequate to identify polyps. The ileocecal valve and the appendiceal orifice were photographed. Scope In: 11:12:47 AM Scope Withdrawal Time 0 hours 11 minutes 13 seconds Scope Out: 11:27:28 AM Total Procedure Duration Time 0 hours 14 minutes 41 seconds Findings: Hemorrhoids were found on perianal exam. A fungating non-obstructing medium-sized mass was found at the hepatic flexure. The mass was partially circumferential (involving one-half of the lumen circumference). No bleeding was present. This was biopsied with a cold forceps for histology. Impression: - Hemorrhoids found on perianal exam. - Likely malignant tumor at the hepatic flexure. Biopsied. - Malignant-appearing tumor in the colon. Removal was not done. Tattooed. Recommendation: - Discharge patient to home. - Resume previous diet. - Continue present medications. - Repeat colonoscopy in 1 year for surveillance. - Return to my office in 1 week. Patient will need a right colectomy for definitive treatment. I anticipate outpatient CT scan of the abdomen pelvis. Procedure Code(s): --- Professional --- 07958, Colonoscopy, flexible; with biopsy, single or multiple Diagnosis Code(s): --- Professional --- K64.9, Unspecified hemorrhoids D49.0, Neoplasm of unspecified behavior of digestive system R10.84, Generalized abdominal pain CPT copyright 2017 [employer]. All rights reserved. The codes documented in this report are preliminary and upon enterprise resource analyst review may be revised to meet current compliance requirements. Golden Flood MD 11/01/2022 11:39:49 AM This report has been signed electronically. Number of Addenda: 0 Note Initiated On: 11/01/2022 11:11 AM
[2022-11-01 11:41] VITALS: BP 114/50; BP 135/52; PULSE 74; RESP 18; O2SAT 98
--- NOTE | 2022-11-01 11:41 | OP.CCLET_ITS ---
11/01/2022 Kimi López [facility] [address] [place] [address] Re : Colonoscopy procedure for Lisbeth Craven Dear Dr. López This procedure was performed on Tuesday, November 01, 2022. My impressions and recommendations are as follows: Impressions : - Hemorrhoids found on perianal exam. - Likely malignant tumor at the hepatic flexure. Biopsied. - Malignant-appearing tumor in the colon. Removal was not done. Tattooed. Recommendations : - Discharge patient to home. - Resume previous diet. - Continue present medications. - Repeat colonoscopy in 1 year for surveillance. - Return to my office in 1 week. Patient will need a right colectomy for definitive treatment. I anticipate outpatient CT scan of the abdomen pelvis. My findings are described in the full procedure note, which is enclosed. If I can be of further assistance, please feel free to contact me at Doctor phone number(s): Work: . Sincerely, Golden Flood MD 11/01/2022 11:39:49 AM This report has been signed electronically.
[2022-11-01 11:45] VITALS: BP 115/52; BP 135/52; PULSE 75; RESP 18; O2SAT 97
[2022-11-01 11:55] VITALS: BP 121/55; BP 135/52; PULSE 76; RESP 18; TEMP 36.7; O2SAT 97
[2022-11-01 12:15] LABS: Bedside Glucose 198 mg/dL (74-106)
--- NOTE | 2022-11-01 12:38 | SUR.PHASEII ---
SPOKE TO RK IN CT SCAN, WILL DISCUSS CONTRAST CONCERNS WITH MD SINCE PATIENT LISTS IONATED IV CONTRAST AN ANAPHYLACTIC ALLERGY. DISCHARGING PATIENT TO HOME, TOLD TO EXPECT PHONE CALL.
== END 2022-11-01 13:25 | disposition home or self-care (01) ==
LOC: EN 09:27 → AC 09:28
PROVIDERS: PCP Internal Medicine; Referring Provider Surgery; Visit Provider Surgery
PROC: 0DJD8ZZ Inspection of Lower Intestinal Tract, Via Natural or Artificial Opening Endoscopic (ICD-10-PCS; CPT 45378; principal; 2022-11-01 10:25)
DX: K29.50 Unspecified chronic gastritis without bleeding (principal); E11.9 Type 2 diabetes mellitus without complications; D64.9 Anemia, unspecified; Z87.891 Personal history of nicotine dependence; R10.84 Generalized abdominal pain; K64.9 Unspecified hemorrhoids; D49.0 Neoplasm of unspecified behavior of digestive system; Z79.899 Other long term (current) drug therapy
CPT/HCPCS: 43239; 45380; 82962; 88305; 88341; 88342; J7120; A4648; J2405

== ENCOUNTER → 2022-11-06 | Outpatient (CLI) | payer MEDICAID, SELFPAY | END | disposition home or self-care (01) | PROVIDERS: PCP Internal Medicine; Referring Provider Surgery; Visit Provider Surgery | DX: R10.9 Unspecified abdominal pain (principal) | CPT/HCPCS: J2405 ==

== ENCOUNTER 2022-11-11 09:14 | Inpatient (IN) | payer MEDICAID, SELFPAY ==
--- NOTE | 2022-11-06 07:20 | CT_ITS ---
STUDY: CT ABDOMEN AND PELVIS WITH CONTRAST REASON FOR EXAM: Female, 62 years old. NEW COLON CANCER DIAGNOSES. PRIOR CHOLECYSTECTOMY AND APPENDECTOMY RADIATION DOSAGE (If Supplied By Facility): CTDIvol = ( 16.67 ) mGy, DLP = ( 1100.84 ) mGycm TECHNIQUE: Transaxial images were obtained from the dome of the diaphragm to the symphysis pubis with oral contrast. Oral and amp; IV Readi-CAT and amp; 100mL Isovue-370 was administered. Sagittal and coronal images were reconstructed. Individualized dose optimization techniques were used for this CT. COMPARISON: None. FINDINGS: The visualized lung bases are unremarkable. Coronary artery calcification. There is a 7.6 mm well-defined hypodense nodule in the peripheral lateral aspect of the right lobe liver. This most likely represents a small cyst. The patient is status post cholecystectomy. Normal spleen. Normal pancreas. Normal bilateral adrenal glands. There is a 3.2 cm x 3.2 cm cyst in the upper pole of the right kidney. Multiple small cysts are also seen throughout the mid and inferior poles of the right kidney. Normal left kidney. Normal visualized stomach. Normal small intestine. There is a 4.4 cm x 3.8 cm soft tissue mass in the region of the hepatic flexure. Moderate amount of fecal material is seen in the colon. The patient is status post appendectomy. There is scattered atherosclerotic calcification of the abdominal aorta, without a demonstrated aneurysm. Normal inferior vena cava. There is borderline retroperitoneal lymphadenopathy with enlarged nodes no greater than 10mm in the short axis diameter. Normal urinary bladder. Normal abdominal wall. Disc space narrowing and disc degeneration at the L5-S1 level. Spondylosis at the L2-L3 level. CT/Abdomen/Pelvis WITH Contrast IMPRESSION: Findings suggestive of a 7.6 mm well-defined cyst in the lateral aspect of the right lobe of the liver. Right renal cysts. 4.4 cm x 3.8 sinus soft tissue mass in the region of the hepatic flexure. Electronically Signed: Franco Sullivan MD at 8:03 EST ,
[2022-11-06 08:30] LABS: Hematocrit 29.3 % (37-47); Hemoglobin 8.2 g/dL (12.0-15.0); Mean Corpuscular Hgb 23.3 pg (27.0-32.0); Mean Corpuscular Volume 83.2 fL (81-99); Mean Platelet Vol. 9.8 fl (6.2-12.0); POSITIVE MORPHOLOGY YES; Platelet Count 379 K/mm3 (150-450); RBC Distribution Width CV 22.1 % (11.6-14.6); Red Blood Count 3.52 M/mm3 (4.2-5.4); White Blood Count 10.6 K/mm3 (4.4-11.0)
[2022-11-06 08:39] LABS: Prothrombin Time (Protime)PT. 13.3 SECONDS (11.7-14.9)
[2022-11-06 08:40] LABS: Partial Thromboplast Time 28.3 Seconds (24.1-36.2)
[2022-11-06 08:49] LABS: Hemoglobin A1c 6.1 % (3.8-5.6)
[2022-11-06 08:55] LABS: Magnesium 2.1 mg/dL (1.6-2.6)
[2022-11-06 08:57] LABS: ALB/GLOB Ratio 0.8 RATIO (0.9-2.4); AST(SGOT) 10 U/L (15-37); Alanine Aminotransfer ALT/SGPT 21 U/L (13-56); Albumin, Serum 3.3 g/dL (3.2-5.0); Alkaline Phosphatase 81 U/L (45-117); Anion Gap 12 (5-15); BUN 28 mg/dL (7-18); BUN/Creat Ratio 18.1 RATIO (10-20); Calcium,Total 9.3 mg/dL (8.5-10.1); Chloride 101 mmol/L (98-107); Creatinine, Serum 1.55 mg/dL (0.55-1.02); EST Glomerular Filtration Rate 36 mL/min (>60); Est Glom Filt Rate - Afr Amer 44 mL/min (>60); Globulin 4.4 g/dL (2.2-4.2); Glucose 314 mg/dL (74-106); Potassium 4.7 mmol/L (3.5-5.1); Protein, Total 7.7 g/dL (6.4-8.2); Sodium Level 136 mmol/L (136-145)
[2022-11-06 09:41] LABS: Scan Indicated on CBC? Y/N YES- FLAGS NOTED
--- NOTE | 2022-11-07 09:50 | RAD_ITS ---
STUDY: X-RAY CHEST REASON FOR EXAM: Female, 62 years old. Preop for pelvic surgery TECHNIQUE: PA and lateral views of the chest. COMPARISON: 03/28/2022 FINDINGS: The lungs are clear and expanded. There is no demonstrated pleural abnormality. Normal size heart. Normal mediastinum and raffaele. Normal visualized pulmonary arteries. Normal visualized aortic arch and descending thoracic aorta. Normal visualized thoracic spine. Normal visualized ribs, clavicles, and shoulders. There is no demonstrated abnormality of the visualized soft tissue structures of the upper abdomen. RAD/Chest PA and Lateral IMPRESSION: Normal x-ray examination of the chest. Electronically Signed: Onel Nolasco MD at 10:55 EST ,
[2022-11-07 19:10] LABS: Carcinoembryonic Antigen 2.8 ng/mL (0.0-4.7)
[2022-11-11] VITALS (11 sets, daily range): BP systolic 95–136; BP diastolic 43–63; PULSE 65–82; RESP 16–18; TEMP 36.2–37.1; O2SAT 96–100; BMI 27.3
[2022-11-11] MEDS: Lactated Ringers 1,000 ML 40 ML IV (09:56)
[2022-11-11] MEDS: Acetaminophen 500 MG Tablet 1000 MG PO ×3 (09:57→23:58)
--- NOTE | 2022-11-11 10:04 | PCM.HP.BLA ---
History and Physical Date of Admission: 11/11/22 isit Reasons:?RESULTS/DISCUSS SURGERY Chief Complaint: results /discuss surgery Allergies Iodinated Contrast Media [IVP dye] Allergy (Intermediate, Verified 11/07/22 09:06) HivesSeasonal Allergies: Uncoded Allergy (Mild, Verified 11/07/22 09:06) Hiveslevofloxacin [From Levaquin] Allergy (Verified 11/07/22 09:06) PT UNSURE OF REACTIONliraglutide [From Victoza] Allergy (Verified 11/07/22 09:06) PT UNSURE OF REACTIONSulfa (Sulfonamide Antibiotics) [sulfa drugs] Allergy (Verified 11/07/22 09:06) PT UNSURE OF REACTIONacetaminophen [From Percocet] Adverse Reaction (Verified 11/07/22 09:06) Itchingadhesive Adverse Reaction (Verified 11/07/22 09:06) Rashhydrochlorothiazide Adverse Reaction (Verified 11/07/22 09:06) PT UNSURE OF REACTIONhydrocodone Adverse Reaction (Verified 11/07/22 09:06) Itchingoxycodone [From Percocet] Adverse Reaction (Verified 11/07/22 09:06) Itching Medications amlodipine 5 mg tablet 5 mg PO LUNCH BP 04/02/22 [History Confirmed 11/07/22] aspirin 81 mg tablet,delayed release (Adult Aspirin Regimen) 81 mg PO DAILY HEART 04/02/22 [History Confirmed 11/07/22] famotidine 40 mg tablet 40 mg PO QHS GERD 04/02/22 [History Confirmed 11/07/22] ibuprofen 800 mg tablet 800 mg PO Q6H PRN PRN Pain 04/02/22 [History Confirmed 11/07/22] nystatin 100,000 unit/gram topical powder (Nystop) 100,000 gm topical PRN PRN Skin Cleansing 04/02/22 [History Confirmed 11/07/22] biotin 5,000 mcg disintegrating tablet 10,000 mcg PO DAILY SUPPLEMENT 08/26/22 [History Confirmed 11/07/22] butalbital 50 mg-acetaminophen 325 mg-caffeine 40 mg-codeine 30 mg cap 1 cap PO Q4H PRN Pain 08/26/22 [History Confirmed 11/07/22] hyoscyamine sulfate 0.125 mg tablet 0.125 mg PO BID-QID PRN Cough 08/26/22 [History Confirmed 11/07/22] valacyclovir 1 gram tablet (Valtrex) 1,000 mg PO DAILY PRN outbreak 08/26/22 [History Confirmed 11/07/22] vitamin B complex (B Complex-Vitamin B12 tablet) 1 tab PO DAILY SUPPLEMENT 08/26/22 [History Confirmed 11/07/22] lisinopril 5 mg tablet 5 mg PO QHS BP 10/31/22 [History Confirmed 11/07/22] carvedilol 3.125 mg tablet 3.125 mg PO BID BP/HEART 11/05/22 [History Confirmed 11/07/22] clopidogrel 75 mg tablet 75 mg PO DAILY BLOOD THINNER 11/05/22 [History Confirmed 11/07/22] diphenhydramine HCl 25 mg tablet (Benadryl Allergy) [address] 11/05/22 [History Confirmed 11/07/22] glipizide 10 mg tablet, extended release 24 hr 10 mg PO BID DIABETIC 11/05/22 [History Confirmed 11/07/22] levothyroxine 88 mcg tablet (Euthyrox) 88 mcg PO DAILY THYROID 11/05/22 [History Confirmed 11/07/22] prednisone 5 mg tablet 5 mg PO DAILY RA 11/05/22 [History Confirmed 11/07/22] rosuvastatin 10 mg tablet (Crestor) 10 mg PO QHS CHOLESTEROL 11/05/22 [History Confirmed 11/07/22] venlafaxine 150 mg capsule,extended release 24 hr (Effexor XR) 150 mg PO DAILY DEPRESSION 11/05/22 [History Confirmed 11/07/22] venlafaxine 75 mg tablet 75 mg PO DAILY DEPRESSION 11/05/22 [History Confirmed 11/07/22] hydroxychloroquine 200 mg tablet 200 mg PO BID RA #60 tabs 11/06/22 [Rx Confirmed 11/07/22] ondansetron HCl 8 mg tablet 8 mg PO BID PRN nausea and vomiting #10 tabs 11/06/22 [Rx Confirmed 11/07/22] PFSH Medical History? Acid reflux Anemia Anxiety Breast cyst Cancer Cardiology follow-up encounter Carpal tunnel syndrome Diabetes Dietary restriction Erythromelalgia Fibromyalgia Foot fracture, left Foot fracture, right Former smoker Gastric reflux Gastroenteritis Hepatitis History of chronic kidney disease History of diabetes mellitus History of echocardiogram History of heart attack History of renal disease History of steroid therapy Hypertension Infectious mononucleosis Injury of head and neck Leg cramps Low iron Measles Migraines Neuropathy Osteopenia Post-menopausal Rheumatoid arthritis Rheumatoid arthritis Seasonal allergies Shingles Shortness of breath on exertion Small fiber neuropathy Thyroid disease UTI (urinary tract infection) Surgical History? H/O heart artery stent History of lumbar laminectomy Hx of appendectomy Hx of cholecystectomy Hx of colonoscopy Hx of fusion of cervical spine Hx of release of tendon Hx of tonsillectomy Family History? Grandfather Cancer Heart diseaseFather Cancer Heart disease DiabetesUncle CancerAunt CancerBrother Heart disease Social History? Smoking Status:? Former smoker alcohol intake:? never substance use type:? does not use caffeine:? Yes Type: carbonated beverages and tea what type of physical activity do you participate in:? none seatbelt use:? always do you feel safe at home:? Yes HPI HPI HPI: 62-year-old female.? She returns to follow-up status post a recent combined esophagogastroduodenoscopy and colonoscopy.? I initially got to see her in the office on October 01, 2022.? She was referred by Dr. Kimi López.? By report she had a long-term history of iron deficiency anemia and difficulty with iron resorption.? She has had chronic abdominal pain.? She has had a previous cholecystectomy and appendectomy. 62-year-old female who has had fairly a long-term history of iron deficiency anemia and difficulty with iron absorption.? She is being referred because she has had a very long-term history of abdominal pain.? She said things going back to 2013 she had an upper endoscopy while in [place].? She has had a previous history of cholecystectomy and an appendectomy.? She denies any change in her stool habits.? Her pain improves with hyoscyamine.? A trial of sucralfate was also recommended.? As of September 10, 2022 her white blood cell count was 13.8 with a hemoglobin of 7.2 hematocrit 26.8 platelet count of 4 and 22,000.? BUN is 18 and creatinine 1.03.? Albumin is 2.8 with a total protein of 6.2 The patient is unable to tolerate oral iron.? She has chronic anemia.? Chronic abdominal pain which at times increases in severity.? She thinks her most recent colonoscopy was 2015 and this was done when she lived in the [facility].? She is more recently moved to [place] and has recently become established. She states that she has had at least a couple previous colonoscopies on each occasion she has had polyps found.? She denies bright red blood per rectum or melena.? There is been no unexpected weight loss. She does note generalized epigastric discomfort On November 01, 2022 upper endoscopy demonstrated what appeared to be a normal stomach and normal duodenum.? Biopsy pathology showed chronic gastritis.? H. pylori was negative.? She had a colonoscopy same time a mass was identified at the hepatic flexure biopsy showed invasive well differentiated adenocarcinoma. At my request on November 06, [address] scan of the abdomen pelvis.? I have personally inspected and reviewed these images.? Gallbladder and appendix surgically absent.? Right lower pole kidney cyst and lower pole smaller cysts.? But most pertinently there does appear to be a 4.4 x 3.8 cm soft tissue mass in the region of the hepatic flexure.? This is consistent with the biopsy findings. The patient has a contrast allergy so we did provide her with prednisone treatment prior to that.? That caused her blood sugars to go up to 304 100 but those have resolved.? She also has her chronic kidney disease and I have encouraged her to increase her hydration. November 04, 2022 STUDY:? CT ABDOMEN AND PELVIS WITH CONTRAST REASON FOR EXAM: ? Female, 62 years old.? NEW COLON CANCER DIAGNOSES. PRIOR CHOLECYSTECTOMY AND APPENDECTOMY RADIATION DOSAGE (If Supplied By Facility):? CTDIvol = ( 16.67 ) mGy, DLP = ( 1100.84 ) mGycm TECHNIQUE: ? Transaxial images were obtained from the dome of the diaphragm to the symphysis pubis with oral contrast. Oral? and amp; IV Readi-CAT? and amp; 100mL Isovue-370 was administered.? Sagittal and coronal images were reconstructed. Individualized dose optimization techniques were used for this CT. COMPARISON: ? None. FINDINGS: The visualized lung bases are unremarkable.? Coronary artery calcification. There is a 7.6 mm well-defined hypodense nodule in the peripheral lateral aspect of the right lobe liver.? This most likely represents a small cyst. The patient is status post cholecystectomy.? Normal spleen.? Normal pancreas. Normal bilateral adrenal glands. There is a 3.2 cm x 3.2 cm cyst in the upper pole of the right kidney. Multiple small cysts are also seen throughout the mid and inferior poles of the right kidney.? Normal left kidney. Normal visualized stomach.? Normal small intestine.? There is a 4.4 cm x 3.8 cm soft tissue mass in the region of the hepatic flexure.? Moderate amount of fecal material is seen in the colon.? The patient is status post appendectomy. There is scattered atherosclerotic calcification of the abdominal aorta, without a demonstrated aneurysm.? Normal inferior vena cava.? There is borderline retroperitoneal lymphadenopathy with enlarged nodes no greater than 10mm in the short axis diameter. Normal urinary bladder. Normal abdominal wall.? Disc space narrowing and disc degeneration at the L5-S1 level.? Spondylosis at the L2-L3 level. CT/Abdomen/Pelvis WITH Contrast IMPRESSION: Findings suggestive of a 7.6 mm well-defined cyst in the lateral aspect of the right lobe of the liver. Right renal cysts. 4.4 cm x 3.8 sinus soft tissue mass in the region of the hepatic flexure. ? Electronically Signed: Franco Sullivan MD at 8:03 EST , Exam Const General: cooperative and comfortable Other: The patient appears to be quite pale.? She is not in any acute distress Eyes General: appearance normal, both eyes and all related structures Neck Other: Cervical and thoracic kyphosis noted Chest Other: Increased anterior posterior diameter from previous tobacco use/COPD Resp Other: Slightly diminished respiratory excursion, clear in the apices Cardio Rate: regular rate Rhythm: regular rhythm GI Other: Soft, diffusely tender to even light palpation, normal bowel sounds Musc Other: Cervical kyphosis Skin General: no rashes or lesions noted Neuro General: patient alert, patient awake and patient oriented x3 Psych Appearance: grossly normal ROS General General: Yes weight change and fatigue; No appetite, colon cancer or breast cancer HEENT HEENT: No difficulty swallowing, eye injury, eye surgery, swollen glands or hoarseness Endo Endocrine: Yes thyroid disease and diabetes mellitus; No thyroid cancer, Hair loss, heat intolerance or cold intolerance Skin Skin: No rash or changing moles Musc Musculoskeletal: Yes back problems, arthritis and rheumatoid arthritis; No gout or joint pain Cardio Cardiovascular: Yes heart disease, high blood pressure, heart attack and heart stent; No murmur, pacemaker, atrial fibrillation, palpitations, shortness of breat with exertion or chest pain Psych Psychiatric: Yes anxiety; No depression or hearing voices Resp Respiratory: Yes shortness of breath, Yes sleep apnea, Yes cough, No COPD, No asthma, No emphysema and No wheezing Gastro Gastrointestinal: Yes abdominal pain, Yes nausea or vomiting, Yes diarrhea, No constipation, No blood in stool, Yes acid reflux, No hemorrhoids, No ulcers, No gallbladder problem and No black,tarry stools [place] Hematologic: Yes blood thinners, No blood disorders, No bleeding, Yes anemia and No blood clots Neuro Neurologic: Yes numbness and Yes tingling Assessment and Plan Assessment and Plan (1) Abdominal pain: ?Status:?Acute (2) Anemia: ?Status:?Acute ?Comment: Laboratory of November 06, 2022 demonstrates a white blood cell count of 10.6 with a hemoglobin 8.2 hematocrit 29.3 platelet count 379,000.? BUN 28 creatinine 1.55 with estimated GFR of 36 consistent with chronic kidney disease stage IIIb.? Glucose was elevated at that time at 314 with a hemoglobin A1c of 6.1.? CEA level still pending (3) Chronic kidney disease (CKD) stage G3a/A1, moderately decreased glomerular filtration rate (GFR) between 45-59 mL/min/1.73 square meter and albuminuria creatinine ratio less than 30 mg/g: ?Status:?Chronic (4) Hepatic flexure mass: ?Status:?Acute (5) Colon cancer: ?Status:?Acute ?Plan: I am recommending the patient in ERAS protocol for a planned laparoscopic right colectomy.? The lesion was Cira ink marked at the time of the colonoscopy.? She has acute on top of chronic anemia complicating her presentation.? Her most recent glucose was elevated but this was related to the prednisone given for the CT scan..? She has stage III 3B chronic renal failure.? I will encourage preoperative hydration. Her medical comorbidities place this at increased perioperative risk.? I have discussed with her the technique, benefit, risk, alternatives.? We have scheduled in our expediting her care. I have discussed with her laparoscopic right colectomy with bilateral transabdominal plane block.? I discussed the technique, benefit, risk, alternatives.? I have encouraged early mobilization and use of incentive spirometer.? The patient is anemic but I am very hopeful that we will be able to avoid transfusion secondary her to her diagnosis of colon cancer. She has had an opportunity to ask and have questions answered.? We will proceed as noted.? We have her scheduled for surgery on November 11. Copy: Dr. Kimi Flood M.D., F.A.C.S I have examined the patient and the H&P has been reviewed. There are no clinical changes since date of exam. Golden Flood M.D., F.A.C.S.
--- NOTE | 2022-11-11 10:04 | EX.PCM.DISCH ---
Discharge Instructions Procedure General Surgery Diet Discharge Diet: Light diet - advance as tolerated (if you have questions about your diet instructions, please talk to you doctor.) Activity Discharge Activity: May Not Drive (for 3-5 days or while taking narcotic pain medicine.) May shower in (days): 1 Lifting Restrictions: 10 pounds Dressing / Incision Call your doctor if your incision/area has: Continuous Slow Oozing, Sudden Increased Bleeding, Increased Pain/ Swelling, Increased Redness and Foul Smelling Discharge Call your doctor if you observe: Fever of 101 or Higher Suture Line Care: Avoid Pulling/Pushing and Avoid Pinching/Bending Additional Dressing/Incision Instructions:: Change or remove dressing in 2 days. Leave steri-strips in place for 1 week. Follow Up Care Please Follow Up With: Golden Flood MD When: Call [phone] to make an appointment to be seen in about 10 days. Test Results: You may resume your Plavix tomorrow , November 14, 2022 You may use an iber-rzb-hjadhss product as needed to slow liquidy diarrhea. Discharge Plan Admission Admit Date/Time: 11/11/22 09:14 Primary Reason for Your Visit: Hepatic flexure colon cancer Attending Provider: Golden Flood Primary Care Provider: Kimi López Instructions Additional Instructions / Restrictions: Recommend taking an additional dose of 5 mg prednisone tomorrow if blood glucose is <100. Discharge Orders/Prescriptions Prescriptions: New hydrocodone-acetaminophen 5-325 mg tablet 1 tab PO Q6H PRN (Reason: pain) 3 Days Qty: 10 0RF Continued amlodipine 5 mg tablet 5 mg PO LUNCH aspirin [Adult Aspirin Regimen] 81 mg tablet,delayed release (DR/EC) 81 mg PO DAILY famotidine 40 mg tablet 40 mg PO QHS nystatin [Nystop] 100,000 unit/gram powder 100,000 gm topical PRN PRN (Reason: Skin Cleansing) Label Comments: APPLY TOPICALLY EVERY 8 HOURS ibuprofen 800 mg tablet 800 mg PO Q6H PRN PRN (Reason: Pain) Label Comments: TAKE 1 TABLET BY MOUTH TWICE DAILY NEEDED FOR MILD PAIN qaggijpnpe-eynkgvnfnm-tob-cod [id number] mg capsule 1 cap PO Q4H PRN (Reason: Pain) valacyclovir [Valtrex] 1 gram tablet 1,000 mg PO DAILY PRN (Reason: outbreak) hyoscyamine sulfate 0.125 mg tablet 0.125 mg PO BID-QID PRN (Reason: Cough) biotin 5,000 mcg tablet,disintegrating 10,000 mcg PO DAILY vitamin B complex [B Complex-Vitamin B12] Tablet 1 tab PO DAILY lisinopril 5 mg tablet 5 mg PO QHS venlafaxine 75 mg tablet 75 mg PO DAILY glipizide 10 mg tablet extended release 24hr 10 mg PO BID prednisone 5 mg tablet 5 mg PO DAILY venlafaxine [Effexor XR] 150 mg capsule,extended release 24hr 150 mg PO DAILY clopidogrel 75 mg tablet 75 mg PO DAILY carvedilol 3.125 mg tablet 3.125 mg PO BID levothyroxine [Euthyrox] 88 mcg tablet 88 mcg PO DAILY diphenhydramine HCl [Benadryl Allergy] 25 mg tablet 50 mg PO DIRECTED PRN (Reason: Allergy Symptoms) Rx Instructions: take [address] scan rosuvastatin [Crestor] 10 mg Tablet 10 mg PO QHS hydroxychloroquine 200 mg tablet 200 mg PO BID Qty: 60 0RF ondansetron HCl 8 mg tablet 8 mg PO BID PRN (Reason: nausea and vomiting) Qty: 10 0RF Referrals / Follow Up: Kimi López MD [Primary Care Provider] - (Contact office to follow-up in 1 week to review low blood sugars. ) Golden Flood MD [Med Staff - Active Staff] - (Follow-up in 10 days. You will need to contact our office to schedule an appointment. ) Disposition Disposition (needs filled in before D/C Order can be placed): Home, Self Care
[2022-11-11 10:11] LABS: Bedside Glucose 319 mg/dL (74-106)
[2022-11-11] MEDS: Cefotetan 2 GM in 0.9% NS 100 ML IV (10:46)
[2022-11-11] MEDS: 0.9% Normal Saline (Pres. free 10 ML Vial (10:54)
[2022-11-11] MEDS: BUPIVACAINE LIPOSOME/PF 20 ML VIAL OPERA.SITE (10:54)
[2022-11-11] MEDS: Famotidine 20 MG in 0.9% NS 10 ML 300 MG IV (11:21)
--- NOTE | 2022-11-11 11:35 | COL._PTH ---
PATIENT: ESTELLA SU LOC: MS3 U#:[id number] AGE/SX: 62/F ROOM: [facility] RE11/11/[address]: Dr. Golden Flood MD : 1960 BED: 1 DIS: 11/13/2022 SPEC #: [id number] RECD: 11/11/22 13:13 STATUS: JAYSHREE MOMIN #: [id number] LANRE: 11/11/22 11:[address]: Golden Flood DEPT: SURGICAL PATHOLOGY RECD BY: Marycarmen De La Vega ENTERED: 11/11/22 13:31 SP TYPE: COLON OTHR DR: Dr. Kimi López MD Tissues: Colon, NOS Procedures: Surgery Specimen Level HEADER OPERATION: ERAS, laparoscopic hemicolectomy, lysis of adhesions PRE-OP DIAGNOSIS: Abdominal pain, hepatic flexure mass, colon cancer TISSUE SUBMITTED: Right colon MICROSCOPIC DIAGNOSIS Right colon, right hemicolectomy: Invasive moderately differentiated adenocarcinoma. See cancer summary in the comment section. SJ:rg 11/13/2022 COMMENT COLON CANCER SUMMARY: Procedure ? right hemicolectomy Tumor site ? hepatic flexure Tumor size ? 5 x 4.5 x 3 cm Histologic type - adenocarcinoma Histologic grade ? grade 2, moderately differentiated Tumor extension ? tumor invades muscularis propria. Margins ? All margins uninvolved by invasive carcinoma, high-grade dysplasia, intramucosal carcinoma and adenoma. The tumor is 10 cm away from the distal resection margin. Treatment effect ? no known presurgical therapy. Lymphvascular invasion ? not identified Perineural invasion ? not identified Type of polyp in which invasive carcinoma arose ? none identified Tumor deposits ? not identified Regional lymph nodes: Number of lymph nodes examined - 17 Number of lymph nodes involved - 0 Additional pathologic findings ? inflammatory polyp, cecum Ancillary studies: Please see previous specimen ([id number] / [id number]) Results of microsatellite instability - Negative (no loss of mismatch protein; no microsatellite instability detected). PATHOLOGIC STAGE: pT2 pN0 pMx The above summary is in compliance with [employer] (CAP) Cancer Protocols Checklist and [place] [employer] on Cancer (AJCC), Staging Manual, 8th Ed. Please make reference to previous specimen ([id number]) colonic polyp at hepatic flexure, biopsy with diagnosis of ?invasive well differentiated adenocarcinoma.? Case has been reviewed in consultation with Dr. Borges who concurs with the above diagnosis. IDC:AM MICROSCOPIC DESCRIPTION Slides are reviewed. GROSS DESCRIPTION Received in fixative is one container labeled with the patient's name and designated right colon. The specimen consists of 29 cm of large bowel with attached 5 cm distal ileum. No appendix is present. Located 10 cm from the distal margin of resection (closest mucosal margin) is a polypoid emery-white lesion occupying 50% of the circumference of the bowel and measuring 5 x 4.5 x 3 cm. The serosa in the area of the mass is inked in black ink. Serial sections through the mass do not reveal involvement of underlying bowel wall. A 6 mm emery polyp is present in the cecum. The remainder of the bowel mucosa is free of mass lesions. Attached to the serosal surface is an irregular fragment of grossly unremarkable omentum measuring 25 x 22 x 2 cm. Sections of the omentum does not reveal mass lesions. Dissection of the attached pericolic fatty tissue reveals several nodules resembling lymph nodes. Back Wedger sections are submitted as follows: 1 - mucosal margins of excision, 2 - ileocecal valve and cecal polyp, 3??uninvolved small and large bowel mucosa, 4-7 - tumor, 8-12 - each cassette containing multiple lymph nodes. / AM:vicente 11/12/2022 TC:0 CPT: 46227
--- NOTE | 2022-11-11 13:45 | PCM.OPRPT ---
Report of Operation Date of Procedure: 11/11/22 Pre-Operative Diagnosis: Hepatic flexure colon cancer Post-Operative Diagnosis: Hepatic flexure colon cancer. Intra-abdominal adhesions. Surgery/Procedure Performed:: Laparoscopic lysis of adhesions. Laparoscopic right colectomy. Laparoscopic bilateral transverses abdominis plane block Description of Surgical Findings:: Timeout informed consent was obtained. 62-year-old female was taken to the operating room placed upon the table underwent general endotracheal ovation esthesia the abdomen was sterilely prepped and draped cefotetan 2 g were given intravenously throughout the procedure local anesthetic 20 cc of Exparel mixed with 60 cc of 0.25% Marcaine and 20 cc of saline. This was used as local anesthetic of super vertical incision was created holding sutures of 0 Vicryl placed varies needle inserted and saline drop test performed the abdomen was insufflated with CO2 to a pressure of 10 mm retroverted pressure 10 mm trocar inserted 10 laparoscope inserted no trocar injuries became apparent that there was extensive adhesions of omentum to the anterior abdominal wall extending from the mid right upper abdomen all the way further adhesions to the terminal ileum and to the liver. I placed a 5 mm port under visualization in the epigastric area to the left of midline and then tediously using harmonic scalpel dissected free with the omental adhesions. She also had adhesions in the right lower quadrant and there were adhesions in the left upper quadrant to the liver. Total dissection time for all of these locations 1 hour. Finally then was able to elevate the ileocolic vessels used harmonic scalpel to incise area identified the vessels put 2 hemoclips proximally and 1 distally did have some slight retrograde oozing which I controlled with the harmonic. Then the white line of Toldt was incised. The patient was noted to be very fibrofatty internally. There was evidence of Cira ink staining transmurally in the right upper quadrant a significant mount of fibrofatty tissue was I dissected free the hepatic flexure and then it was heavy overlying omentum I transected this gastrocolic omentum in order to gain access to the middle colic vessels. I had secured those with Hem-o-sandra clips. Due to the black staining visualization was a little bit difficult so at this point I elected to make my exit incision. I extended the supraumbilical incision and then placed a wound protector was able to evacuate the distal small bowel the entire ascending colon hepatic flexure and the proximal transverse colon. Large specimen was significant mount of February omentum. I dissected free the omentum to the remaining transverse colon using harmonic scalpel. I transected the mesentery carefully now that visualization was able to secure the middle colic higher with Hem-o-sandra clips prior to transecting it dissected free the ascending: The ileocolic vessels had been secured Having achieved that I used a KHUSHBU 55 to transect the terminal ileum and the transverse colon. The specimen was submitted. I placed the bowel side to side made enterotomies placed a stapler and then did a functional [id number] anastomosis. I closed the enterotomy sites with a TA 60. Crotch suture of 4-0 silk was placed. Hemostasis was intact there was no spillage. There was a slight amount of bleeding from the staple line consistent with a good blood flow and this was carefully secured with a 4-0 silk. I closed the mesenteric trap with a running 2-0 chromic and inverted some omentum over the stapled ends. Placed that back within the abdomen. The abdomen was reinsufflated hemostasis was intact there was no active bleeding aspirated any fluid remaining. Then removed the trochars removed and wound protector changed to sterile gowns gloves and instruments. 4 towels were placed the fascia was closed with a running #1 PDS. At the umbilical area is a small umbilical hernia and I secured that internally with a [id number] suture of 0 Nurolon. Fascia was closed with a small bite technique. Having then the wounds were closed with interrupted and running subicular 4 Monocryl. Steri-Strips Telfa OpSite dressings applied. Sponge and instrument counts were reported to the surgeon to be correct. All local was utilized. Specimen right colon. Drains none. Blood loss 250 cc. The patient was taken to the recovery area in satisfactory addition without apparent complication Golden Flood M.D., F.A.C.S. Surgeon: Golden Flood Type of Anesthesia: General Anesthesiologist: Navya Hinojosa
[2022-11-11 14:36] LABS: Bedside Glucose 185 mg/dL (74-106)
[2022-11-11 15:40] LABS: Absolute Lymphocyte Count 1.27 X10^3/uL (0.83-4.51); Basophil% 0.5 % (0-1); Eosinophil# 0.19 X10^3/uL; Eosinophils% 0.9 % (0-5); Hematocrit 24.6 % (37-47); Hemoglobin 6.8 g/dL (12.0-15.0); Lymphocyte # 1.27 X10^3/ul (0.83-4.51); Lymphocyte % 5.8 % (19-41); Mean Corp Hgb Conc 27.6 g/dL (32-36); Mean Corpuscular Hgb 23.9 pg (27.0-32.0); Mean Corpuscular Volume 86.3 fL (81-99); Mean Platelet Vol. 9.5 fl (6.2-12.0); Monocyte# 1.15 X10^3/uL; Monocyte% 5.3 % (0-10); NRBC Flagged by Analyzer 0 % (0-5); Neutrophil # 19.04 X10^3/uL (2.7-7.7); Neutrophil % 86.9 % (47-70); POSITIVE MORPHOLOGY YES; Platelet Count 312 K/mm3 (150-450); RBC Distribution Width CV 20.5 % (11.6-14.6); RBC Distribution Width SD 64.7 fl (35.1-43.9); Red Blood Count 2.85 M/mm3 (4.2-5.4); White Blood Count 21.9 K/mm3 (4.4-11.0)
[2022-11-11 16:20] LABS: Differential Comment SCANNED; Differential Indicated SCAN CRITERIA MET
[2022-11-11] MEDS: Ibuprofen 400 MG Tablet 800 MG PO (17:33)
[2022-11-11] MEDS: glipiZIDE XL 5 MG Tablet 10 MG PO (17:35)
[2022-11-11] MEDS: Carvedilol 3.125 MG TABLET PO (17:35)
[2022-11-11] MEDS: Hydroxychloroquine 200 MG Tablet PO (22:20)
[2022-11-11] MEDS: Atorvastatin Calcium 20 MG Tablet PO (22:20)
[2022-11-11] MEDS: Docusate Sodium 100 MG Capsule PO (22:20)
[2022-11-11] MEDS: Famotidine 20 MG Tablet PO (22:20)
[2022-11-11 22:45] LABS: Bedside Glucose 93 mg/dL (74-106)
[2022-11-12] VITALS (20 sets, daily range): BP systolic 90–152; BP diastolic 43–67; PULSE 60–80; RESP 16–18; TEMP 36.6–37.1; O2SAT 94–100
[2022-11-12] MEDS: Lactated Ringers 1,000 ML 40 ML IV (00:02)
[2022-11-12] MEDS: Ibuprofen 400 MG Tablet 800 MG PO ×2 (01:16→20:09)
[2022-11-12 04:46] LABS: Bedside Glucose 56 mg/dL (74-106)
[2022-11-12 04:46] LABS: Bedside Glucose 57 mg/dL (74-106)
[2022-11-12 04:46] LABS: Bedside Glucose 68 mg/dL (74-106)
[2022-11-12 04:46] LABS: Bedside Glucose 71 mg/dL (74-106)
[2022-11-12 04:51] LABS: Hematocrit 21.6 % (37-47); Mean Corp Hgb Conc 27.8 g/dL (32-36); Mean Corpuscular Hgb 23.4 pg (27.0-32.0); Mean Corpuscular Volume 84.4 fL (81-99); Mean Platelet Vol. 9.6 fl (6.2-12.0); POSITIVE MORPHOLOGY YES; Platelet Count 263 K/mm3 (150-450); RBC Distribution Width CV 20.2 % (11.6-14.6); RBC Distribution Width SD 62.6 fl (35.1-43.9); Red Blood Count 2.56 M/mm3 (4.2-5.4); White Blood Count 14.9 K/mm3 (4.4-11.0)
[2022-11-12 05:00] LABS: Scan Indicated on CBC? Y/N YES- FLAGS NOTED
[2022-11-12 05:09] LABS: Anion Gap 8 (5-15); BUN 15 mg/dL (7-18); BUN/Creat Ratio 8.9 RATIO (10-20); Chloride 104 mmol/L (98-107); Creatinine, Serum 1.68 mg/dL (0.55-1.02); EST Glomerular Filtration Rate 33 mL/min (>60); Est Glom Filt Rate - Afr Amer 40 mL/min (>60); Estimated Creatinine Clearance 35.02 ml/min; Glucose 70 mg/dL (74-106); Potassium 3.4 mmol/L (3.5-5.1); Sodium Level 138 mmol/L (136-145)
[2022-11-12 05:11] LABS: Differential Comment SCANNED
[2022-11-12] MEDS: Acetaminophen 500 MG Tablet 1000 MG PO ×3 (05:48→17:58)
[2022-11-12] MEDS: Levothyroxine 88 MCG Tablet PO (05:48)
--- NOTE | 2022-11-12 06:17 | PN.SURG_ITS ---
Subjective Subjective Patient states that she is comfortable at rest. Has had some low blood sugars. Has had difficulties urinating with urinary retention. She has had a straight cath x1. No nausea. No flatus Objective Data Objective Data Vital Signs: Vital Signs Temp Pulse Resp BP Pulse Ox O2 Del Method O2 Flow Rate 97.8 F 75 18 93/47 L 95 Room Air 4 11/12/22 04:38 11/12/22 04:38 11/12/22 04:38 11/12/22 04:38 11/12/22 04:38 11/12/22 04:38 11/11/22 16:19 Oxygen Flow Rate (L/min) 4 Oxygen Delivery Method Room Air Weight: 179 lb 14.355 oz Body Mass Index (BMI) 27.3 Intake & Output: Intake and Output for Last 24 Hours 11/10/22 11/11/22 11/12/22 23:59 23:59 23:59 Intake Total 212 / 1012 1364 / 1364 Output Total 0 / 350 350 / 350 Balance 212 / 662 1014 / 1014 Lab / Micro Data Result Diagrams: 11/12/22 04:40 11/12/22 04:40 Labs: Laboratory Results - last 24 hr 11/11/22 09:41: POC Glucose 319 H 11/11/22 14:13: POC Glucose 185 H 11/11/22 14:50: WBC 21.9 H, RBC 2.85 L, Hgb 6.8 L, Hct 24.6 L, MCV 86.3, MCH 23.9 L, MCHC 27.6 L, RDW Std Deviation 64.7 H, RDW Coeff of Emilio 20.5 H, Plt Count 312, MPV 9.5, Immature Gran % (Auto) 0.600, Neut % (Auto) 86.9 H, Lymph % (Auto) 5.8 L, [place] % (Auto) 5.3, Eos % (Auto) 0.9, Baso % (Auto) 0.5, Absolute Neuts (auto) 19.0 H, Absolute Lymphs (auto) 1.27, Nucleated RBC % 0, Differential Comment SCANNED 11/11/22 21:51: POC Glucose 93 11/12/22 03:33: POC Glucose 57 L 11/12/22 03:50: POC Glucose 56 L 11/12/22 04:07: POC Glucose 68 L 11/12/22 04:25: POC Glucose 71 L 11/12/22 04:40: WBC 14.9 H, RBC 2.56 L, Hgb 6.0 L*, Hct 21.6 L, MCV 84.4, MCH 23.4 L, MCHC 27.8 L, RDW Std Deviation 62.6 H, RDW Coeff of Emilio 20.2 H, Plt Count 263, MPV 9.6, Differential Comment SCANNED, Diff Path Review February11/12/22 04:40: Sodium 138, Potassium 3.4 L, Chloride 104, Carbon Dioxide 26.0, Anion Gap 8, BUN 15, Creatinine 1.68 H, Estim Creat Clear Calc 35.02, Est GFR (MDRD) Af Amer 40 L, Est GFR (MDRD) Non-Af 33 L, BUN/Creatinine Ratio 8.9 L, Glucose 70 L, Calcium 8.0 L 11/12/22 04:40: Blood Type A NEGATIVE, Antibody Screen NEGATIVE 11/12/22 04:40: Crossmatch See Detail Physical Exam Narrative She is alert, does not appear to be any acute distress, easily communicates. Resp normal respiratory effort and clear to auscultation bilaterally GI GI Narrative: Soft, appropriately tender, dressings dry Assessment & Plan Assessment/Plan (1) Colon cancer: (2) Anemia: (3) Type 2 diabetes mellitus: (4) Urinary retention: (5) Hypokalemia: PLAN: Plan Several different postoperative issues. The patient seemingly has done well with her laparoscopic right colectomy. She was notably anemic preoperatively. I am not currently suspicious of finding ongoing blood loss but feel that her current values reflect the amount of fluids that she received intraoperatively. With her cardiac disease however I believe that I will need to replace this. She was already below cardiac levels upon her presentation to me. We will transfuse 2 units of blood Urinary retention may simply be narcotics in decreased mobility. I encouraged the patient to mobilize and ambulate as tolerate Will continue with clear liquids. We will continue to monitor blood sugars. I am hopeful that upon gradual resumption of a closer to normal diet that her sugars will equilibrate. Very mild hypokalemia. Will replace orally. Patient is on chronic prednisone therapy for her arthritis. We will continue current oral dosing. Golden Flood M.D., F.A.C.S.
--- NOTE | 2022-11-12 10:07 | NURSING ---
Addendum entered by Nicole Houser 11/12/22 10:56: 1050 accucheck 96 Addendum entered by Nicole Houser 11/12/22 10:32: 1030 accucheck 61 SALLY Braga notified. patient drinking apple juice and eating Spanish ice Original Note: patient reports feeling warm. ask for blood sugar check, accucheck 42 SALLY Braga at bedside and aware. Patient alert and given grape juice
[2022-11-12] MEDS: predniSONE 5 MG Tablet PO (10:12)
[2022-11-12] MEDS: Aspirin E.C. 81 MG Tablet PO (10:12)
[2022-11-12] MEDS: Venlafaxine XR 150 MG Capsule PO (10:13)
[2022-11-12] MEDS: Venlafaxine HCl 75 MG Tablet PO (10:13)
[2022-11-12] MEDS: Hydroxychloroquine 200 MG Tablet PO (10:13)
[2022-11-12] MEDS: Potassium Chloride Oral Tablet 20 MEQ PO ×2 (10:21→17:58)
--- NOTE | 2022-11-12 10:35 | CASEMGMT ---
SALLY GARCIA Assessment: Face to Face with pt for initial transition planning/care coordination assessment. RN JOSE introduced self and role at [facility], pt voices understanding and consents to assessment. Pt is A/O x4 and answers all questions appropriately at this time. Pt lying in bed with mother at bedside. Pt agreeable to assessment with mother in room. Care providers, pharmacy, and demographics verified/updated. Admitting Dx: lap colectomy R PCP:Maribel Specialists:Remigio, JOCY Preferred Pharmacy: [facility] Retail Insurance: [facility] Prescription Benefit: yes LNOK: Angi Hua, mother Living Arrangements: Pt lives with mother in a two story home with 4 steps to enter without a rail. Pt reports she is I in ADL's and denies concerns at home. Transportation: Pt drives self and denies concerns with transportation. DME/HHC/SNF: Pt has a walker and cane at home. Pt denies hx of HHC or SNF stays. Pt states no concerns with going home at time of dc. Pt is interested in a list of local healthcare providers, she states she needs to find an arthritis doctor. Provided pamphlet. Pt states no further concerns/needs. CM to follow. Advised pt to ask CM if any further question/concerns/needs arise, voices understanding. Pt Goal: Home Plan: Home
[2022-11-12 10:55] LABS: Bedside Glucose 42 mg/dL (74-106)
[2022-11-12 10:55] LABS: Bedside Glucose 61 mg/dL (74-106)
[2022-11-12 11:10] LABS: Bedside Glucose 96 mg/dL (74-106)
[2022-11-12 12:30] LABS: Bedside Glucose 77 mg/dL (74-106)
[2022-11-12 12:33] LABS: Pathologist Review Reviewed
[2022-11-12 14:11] LABS: Bedside Glucose 142 mg/dL (74-106)
[2022-11-12 16:30] LABS: Bedside Glucose 216 mg/dL (74-106)
--- NOTE | 2022-11-12 17:17 | PCM.PN.SRG ---
Subjective Subjective Patient comfortable. Doing well. Multiple loose stools. Objective Data Objective Data Vital Signs: Vital Signs Temp Pulse Resp BP Pulse Ox O2 Del Method O2 Flow Rate 98.2 F 80 16 152/67 H 98 Room Air 4 11/12/22 16:03 11/12/22 16:03 11/12/22 16:03 11/12/22 16:03 11/12/22 16:03 11/12/22 16:03 11/11/22 16:19 Oxygen Flow Rate (L/min) 4 Oxygen Delivery Method Room Air Weight: 179 lb 14.355 oz Body Mass Index (BMI) 27.3 Intake & Output: Intake and Output for Last 24 Hours 11/10/22 11/11/22 11/12/22 23:59 23:59 23:59 Intake Total 212 / 1012 3461.33 / 3461.33 Output Total 0 / 350 2400 / 2400 Balance 212 / 662 1061.33 / 1061.33 Lab / Micro Data Result Diagrams: 11/12/22 04:40 11/12/22 04:40 Labs: Laboratory Results - last 24 hr 11/11/22 21:51: POC Glucose 93 11/12/22 03:33: POC Glucose 57 L 11/12/22 03:50: POC Glucose 56 L 11/12/22 04:07: POC Glucose 68 L 11/12/22 04:25: POC Glucose 71 L 11/12/22 04:40: WBC 14.9 H, RBC 2.56 L, Hgb 6.0 L*, Hct 21.6 L, MCV 84.4, MCH 23.4 L, MCHC 27.8 L, RDW Std Deviation 62.6 H, RDW Coeff of Emilio 20.2 H, Plt Count 263, MPV 9.6, Differential Comment SCANNED, Diff Path Review Reviewed 11/12/22 04:40: Sodium 138, Potassium 3.4 L, Chloride 104, Carbon Dioxide 26.0, Anion Gap 8, BUN 15, Creatinine 1.68 H, Estim Creat Clear Calc 35.02, Est GFR (MDRD) Af Amer 40 L, Est GFR (MDRD) Non-Af 33 L, BUN/Creatinine Ratio 8.9 L, Glucose 70 L, Calcium 8.0 L 11/12/22 04:40: Blood Type A NEGATIVE, Antibody Screen NEGATIVE 11/12/22 04:40: Crossmatch See Detail 11/12/22 10:04: POC Glucose 42 L* 11/12/22 10:30: POC Glucose 61 L 11/12/22 10:53: POC Glucose 96 11/12/22 12:08: POC Glucose 77 11/12/22 13:44: POC Glucose 142 H 11/12/22 16:11: POC Glucose 216 H Assessment & Plan Assessment/Plan (1) Colon cancer: PLAN: Patient is really doing very well 1 day postop. We will advance to transitional diet. I will provide 1 Lomotil to try to slow the looser stools. I am very pleased with her progress. Golden Flood M.D., F.A.C.S.
[2022-11-12] MEDS: Diphenoxylate/Atrop 1 Tablet PO (17:58)
[2022-11-12] MEDS: Carvedilol 3.125 MG TABLET PO (18:00)
[2022-11-12] MEDS: HYDROmorphone 0.5 MG/0.5 ML SYRINGE IV ×2 (18:04→21:25)
[2022-11-12] MEDS: Atorvastatin Calcium 20 MG Tablet PO (21:27)
[2022-11-12] MEDS: Lisinopril 5 MG Tablet PO (21:27)
[2022-11-12] MEDS: Famotidine 20 MG Tablet PO (21:27)
[2022-11-12 21:55] LABS: Bedside Glucose 162 mg/dL (74-106)
[2022-11-12 23:40] LABS: Bedside Glucose 120 mg/dL (74-106)
[2022-11-13] MEDS: Acetaminophen 500 MG Tablet 1000 MG PO ×2 (01:17→05:22)
[2022-11-13 02:20] VITALS: BP 123/48; PULSE 71; RESP 18; TEMP 36.6; O2SAT 97
[2022-11-13] MEDS: Levothyroxine 88 MCG Tablet PO (05:22)
[2022-11-13 06:21] LABS: Absolute Lymphocyte Count 1.83 X10^3/uL (0.83-4.51); Absolute Neutrophil Count 10.5 X10^3/uL (2.0-7.7); Basophil# 0.06 X10^3/uL; Basophil% 0.4 % (0-1); Eosinophil# 0.25 X10^3/uL; Eosinophils% 1.8 % (0-5); Hematocrit 29.3 % (37-47); Hemoglobin 8.7 g/dL (12.0-15.0); Lymphocyte # 1.83 X10^3/ul (0.83-4.51); Lymphocyte % 13.1 % (19-41); Mean Corp Hgb Conc 29.7 g/dL (32-36); Mean Corpuscular Hgb 24.9 pg (27.0-32.0); Mean Corpuscular Volume 83.7 fL (81-99); Mean Platelet Vol. 9.8 fl (6.2-12.0); Monocyte# 1.33 X10^3/uL; Monocyte% 9.5 % (0-10); NRBC Flagged by Analyzer 0 % (0-5); Neutrophil # 10.46 X10^3/uL (2.7-7.7); Neutrophil % 74.7 % (47-70); Platelet Count 247 K/mm3 (150-450); RBC Distribution Width CV 18.6 % (11.6-14.6); RBC Distribution Width SD 57.4 fl (35.1-43.9)
--- NOTE | 2022-11-13 06:29 | PCM.PN.SRG ---
Subjective Subjective She has no complaints. Little bit sore but she walked a lot yesterday. Passing stool and the one Lomotil helped her with that slowing that liquidy diarrhea down. No nausea. Objective Data Objective Data Vital Signs: Vital Signs Temp Pulse Resp BP Pulse Ox O2 Del Method O2 Flow Rate 97.8 F 71 18 123/48 H 97 Room Air 4 11/13/22 02:20 11/13/22 02:20 11/13/22 02:20 11/13/22 02:20 11/13/22 02:20 11/13/22 02:20 11/11/22 16:19 Oxygen Flow Rate (L/min) 4 Oxygen Delivery Method Room Air Weight: 179 lb 14.355 oz Body Mass Index (BMI) 27.3 Intake & Output: Intake and Output for Last 24 Hours 11/11/22 11/12/22 11/13/22 23:59 23:59 23:59 Intake Total 212 / 1012 3461.33 / 3711.33 650 / 650 Output Total 0 / 350 2400 / 3000 1200 / 1200 Balance 212 / 662 1061.33 / 711.33 -550 / -550 Lab / Micro Data Result Diagrams: 11/12/22 04:40 11/12/22 04:40 Labs: Laboratory Results - last 24 hr 11/12/22 04:40: Diff Path Review Reviewed 11/12/22 04:40: Crossmatch See Detail 11/12/22 10:04: POC Glucose 42 L* 11/12/22 10:30: POC Glucose 61 L 11/12/22 10:53: POC Glucose 96 11/12/22 12:08: POC Glucose 77 11/12/22 13:44: POC Glucose 142 H 11/12/22 16:11: POC Glucose 216 H 11/12/22 21:32: POC Glucose 162 H 11/12/22 23:20: POC Glucose 120 H Physical Exam Resp normal respiratory effort GI GI Narrative: Soft, dressings clean and dry, nontender, Assessment & Plan Assessment/Plan (1) Colon cancer: PLAN: I am very impressed with her progress. A.m. labs are pending. Plan discharge today please Golden Flood M.D., F.A.C.S.
[2022-11-13 06:51] LABS: Anion Gap 3 (5-15); BUN 13 mg/dL (7-18); BUN/Creat Ratio 10.2 RATIO (10-20); Calcium,Total 8.5 mg/dL (8.5-10.1); Chloride 115 mmol/L (98-107); Creatinine, Serum 1.28 mg/dL (0.55-1.02); EST Glomerular Filtration Rate 45 mL/min (>60); Est Glom Filt Rate - Afr Amer 54 mL/min (>60); Estimated Creatinine Clearance 45.97 ml/min; Glucose 45 mg/dL (74-106); Potassium 4.2 mmol/L (3.5-5.1); Sodium Level 144 mmol/L (136-145)
[2022-11-13 06:59] VITALS: O2SAT 100
[2022-11-13 07:16] LABS: Bedside Glucose 42 mg/dL (74-106)
[2022-11-13 07:16] LABS: Bedside Glucose 64 mg/dL (74-106)
[2022-11-13 07:45] LABS: Bedside Glucose 107 mg/dL (74-106)
--- NOTE | 2022-11-13 09:04 | PCM.PN.SRG ---
Subjective Subjective Blood glucose it seemed to be responding but now low again. The potassium responded very nicely. Probably suffering from [place]'s secondary to her chronic prednisone use Objective Data Objective Data Vital Signs: Vital Signs Temp Pulse Resp BP Pulse Ox O2 Del Method O2 Flow Rate 98.2 F 63 16 110/47 L 99 Room Air 4 11/13/22 08:39 11/13/22 08:39 11/13/22 08:39 11/13/22 08:39 11/13/22 08:39 11/13/22 08:39 11/11/22 16:19 Oxygen Flow Rate (L/min) 4 Oxygen Delivery Method Room Air Weight: 179 lb 14.355 oz Body Mass Index (BMI) 27.3 Intake & Output: Intake and Output for Last 24 Hours 11/11/22 11/12/22 11/13/22 23:59 23:59 23:59 Intake Total 212 / 1012 3461.33 / 3711.33 650 / 650 Output Total 0 / 350 2400 / 3000 1200 / 1200 Balance 212 / 662 1061.33 / 711.33 -550 / -550 Lab / Micro Data Result Diagrams: 11/13/22 05:21 11/13/22 05:21 Labs: Laboratory Results - last 24 hr 11/12/22 04:40: Diff Path Review Reviewed 11/12/22 04:40: Crossmatch See Detail 11/12/22 10:04: POC Glucose 42 L* 11/12/22 10:30: POC Glucose 61 L 11/12/22 10:53: POC Glucose 96 11/12/22 12:08: POC Glucose 77 11/12/22 13:44: POC Glucose 142 H 11/12/22 16:11: POC Glucose 216 H 11/12/22 21:32: POC Glucose 162 H 11/12/22 23:20: POC Glucose 120 H 11/13/22 05:21: WBC 14.0 H, RBC 3.50 L, Hgb 8.7 L, Hct 29.3 L, MCV 83.7, MCH 24.9 L, MCHC 29.7 L D, RDW Std Deviation 57.4 H, RDW Coeff of Emilio 18.6 H, Plt Count 247, MPV 9.8, Immature Gran % (Auto) 0.500, Neut % (Auto) 74.7 H, Lymph % (Auto) 13.1 L, [place] % (Auto) 9.5, Eos % (Auto) 1.8, Baso % (Auto) 0.4, Absolute Neuts (auto) 10.5 H, Absolute Lymphs (auto) 1.83, Nucleated RBC % 0 11/13/22 05:21: Sodium 144, Potassium 4.2, Chloride 115 H, Carbon Dioxide 26.0, Anion Gap 3 L, BUN 13, Creatinine 1.28 H, Estim Creat Clear Calc 45.97, Est GFR (MDRD) Af Amer 54 L, Est GFR (MDRD) Non-Af 45 L, BUN/Creatinine Ratio 10.2, Glucose 45 L, Calcium 8.5 11/13/22 06:33: POC Glucose 42 L* 11/13/22 06:55: POC Glucose 64 L 11/13/22 07:27: POC Glucose 107 H Assessment & Plan Assessment/Plan (1) Hypoglycemia: PLAN: The patient states that she has had difficulty with her glucose control at home particularly since steroid protectants were given in order to obtain her preoperative CT scan. Current problems may be secondary to [place]'s. We will provide additional oral prednisone supplementation. Patient may need to take increased dosing at home as well. We will recheck today. Golden Flood M.D., F.A.C.S.
--- NOTE | 2022-11-13 09:21 | DS.PCM_ITS ---
Providers Date of Admission: 11/11/22 Date of Discharge: 11/13/22 Primary Care Physician: Dr. Kimi López MD Reason For Visit: LAP COLECTOMY RT Diagnosis Discharge Diagnosis (1) Hypoglycemia: Status: Acute Code(s): E16.2 - Hypoglycemia, unspecified Medications at Discharge Home Medications amlodipine 5 mg tablet 5 mg PO LUNCH BP 04/02/22 aspirin 81 mg tablet,delayed release (Adult Aspirin Regimen) 81 mg PO DAILY HEART 04/02/22 famotidine 40 mg tablet 40 mg PO QHS GERD 04/02/22 ibuprofen 800 mg tablet 800 mg PO Q6H PRN PRN Pain 04/02/22 nystatin 100,000 unit/gram topical powder (Nystop) 100,000 gm topical PRN PRN Skin Cleansing 04/02/22 biotin 5,000 mcg disintegrating tablet 10,000 mcg PO DAILY SUPPLEMENT 08/26/22 butalbital 50 mg-acetaminophen 325 mg-caffeine 40 mg-codeine 30 mg cap 1 cap PO Q4H PRN Pain 08/26/22 hyoscyamine sulfate 0.125 mg tablet 0.125 mg PO BID-QID PRN Cough 08/26/22 valacyclovir 1 gram tablet (Valtrex) 1,000 mg PO DAILY PRN outbreak 08/26/22 vitamin B complex (B Complex-Vitamin B12 tablet) 1 tab PO DAILY SUPPLEMENT 08/26/22 lisinopril 5 mg tablet 5 mg PO QHS BP 10/31/22 carvedilol 3.125 mg tablet 3.125 mg PO BID BP/HEART 11/05/22 clopidogrel 75 mg tablet 75 mg PO DAILY BLOOD THINNER 11/05/22 diphenhydramine HCl 25 mg tablet (Benadryl Allergy) 50 mg PO DIRECTED PRN Allergy Symptoms 11/05/22 glipizide 10 mg tablet, extended release 24 hr 10 mg PO BID DIABETIC 11/05/22 levothyroxine 88 mcg tablet (Euthyrox) 88 mcg PO DAILY THYROID 11/05/22 prednisone 5 mg tablet 5 mg PO DAILY RA 11/05/22 rosuvastatin 10 mg tablet (Crestor) 10 mg PO QHS CHOLESTEROL 11/05/22 venlafaxine 150 mg capsule,extended release 24 hr (Effexor XR) 150 mg PO DAILY DEPRESSION 11/05/22 venlafaxine 75 mg tablet 75 mg PO DAILY DEPRESSION 11/05/22 hydroxychloroquine 200 mg tablet 200 mg PO BID RA #60 tabs 11/06/22 ondansetron HCl 8 mg tablet 8 mg PO BID PRN nausea and vomiting #10 tabs 11/06/22 hydrocodone-acetaminophen 5-325mg 5mg-325mg 1 tab PO Q6H PRN pain 3 days #10 tabs 11/13/22 Hospital Course Operations - (Laparoscopic lysis of adhesions. Laparoscopic right colectomy. Laparoscopic bilateral transverses abdominis plane block) Summary of Care Provided Minutes Spent on Discharge: 20 Hospital Course: Patient is a 62 y/o F who presented for an elective laparoscopic right hemicolectomy for colon cancer. Dr. Flood performed a Laparoscopic lysis of adhesions, Laparoscopic right colectomy, and Laparoscopic bilateral transverses abdominis plane block on 11/11/22. Patient tolerated the procedure well. Final pathology pending. Patient had some hypoglycemic events during her hospitalization. Additional prednisone was provided totally 15 mg of prednisone, which brought her blood glucose back to normal. Patient seemed to return to normal. Patient was also noted to have diarrhea and was provided Lomotil which helped to slow the loose stools. Patient had an uncomplicated hospitalization. Upon discharge, patient was tolerating a transitional diet. Patient denies nausea, vomiting. Positive flatus and bowel movements. Abdominal pain controlled with Tylenol. Patient notes discomfort with positional movement. Patient instructed to follow-up with her PCP in 1 week and follow-up with our office in 10 days. Weight / BMI Weight Weight: 179 lb 14.355 oz Body Mass Index (BMI) 27.3 ABG / Lab / Microbiology Data Result Diagrams: 11/13/22 05:21 11/13/22 05:21 Laboratory: Laboratory Results - last 24 hr 11/12/22 04:40: Diff Path Review Reviewed 11/12/22 04:40: Crossmatch See Detail 11/12/22 10:04: POC Glucose 42 L* 11/12/22 10:30: POC Glucose 61 L 11/12/22 10:53: POC Glucose 96 11/12/22 12:08: POC Glucose 77 11/12/22 13:44: POC Glucose 142 H 11/12/22 16:11: POC Glucose 216 H 11/12/22 21:32: POC Glucose 162 H 11/12/22 23:20: POC Glucose 120 H 11/13/22 05:21: WBC 14.0 H, RBC 3.50 L, Hgb 8.7 L, Hct 29.3 L, MCV 83.7, MCH 24.9 L, MCHC 29.7 L D, RDW Std Deviation 57.4 H, RDW Coeff of Emilio 18.6 H, Plt Count 247, MPV 9.8, Immature Gran % (Auto) 0.500, Neut % (Auto) 74.7 H, Lymph % (Auto) 13.1 L, [place] % (Auto) 9.5, Eos % (Auto) 1.8, Baso % (Auto) 0.4, Absolute Neuts (auto) 10.5 H, Absolute Lymphs (auto) 1.83, Nucleated RBC % 0 11/13/22 05:21: Sodium 144, Potassium 4.2, Chloride 115 H, Carbon Dioxide 26.0, Anion Gap 3 L, BUN 13, Creatinine 1.28 H, Estim Creat Clear Calc 45.97, Est GFR (MDRD) Af Amer 54 L, Est GFR (MDRD) Non-Af 45 L, BUN/Creatinine Ratio 10.2, Glucose 45 L, Calcium 8.5 11/13/22 06:33: POC Glucose 42 L* 11/13/22 06:55: POC Glucose 64 L 11/13/22 07:27: POC Glucose 107 H D/C Instructions Discharge Diet: Light diet - advance as tolerated (if you have questions about your diet instructions, please talk to you doctor.) May shower in (days): 1 Call your doctor if your incision/area has: Continuous Slow Oozing, Sudden Increased Bleeding, Increased Pain/ Swelling, Increased Redness and Foul Smelling Discharge Call your doctor if you observe: Fever of 101 or Higher Suture Line Care: Avoid Pulling/Pushing and Avoid Pinching/Bending Additional Dressing/Incision Instructions: Change or remove dressing in 2 days. Leave steri-strips in place for 1 week. Please Follow Up With: Golden Flood MD When: Call [phone] to make an appointment to be seen in about 10 days. Meaningful Use Info Meaningful Use Diagnoses (Choose all that apply): None applicable Discharge Plan Admission Admit Date/Time: 11/11/22 09:14 Primary Reason for Your Visit: Hepatic flexure colon cancer Attending Provider: Golden Flood Primary Care Provider: Kimi López Instructions Additional Instructions / Restrictions: Recommend taking an additional dose of 5 mg prednisone tomorrow if blood glucose is <100. Discharge Orders/Prescriptions Prescriptions: New hydrocodone-acetaminophen 5-325 mg tablet 1 tab PO Q6H PRN (Reason: pain) 3 Days Qty: 10 0RF Continued amlodipine 5 mg tablet 5 mg PO LUNCH aspirin [Adult Aspirin Regimen] 81 mg tablet,delayed release (DR/EC) 81 mg PO DAILY famotidine 40 mg tablet 40 mg PO QHS nystatin [Nystop] 100,000 unit/gram powder 100,000 gm topical PRN PRN (Reason: Skin Cleansing) Label Comments: APPLY TOPICALLY EVERY 8 HOURS ibuprofen 800 mg tablet 800 mg PO Q6H PRN PRN (Reason: Pain) Label Comments: TAKE 1 TABLET BY MOUTH TWICE DAILY NEEDED FOR MILD PAIN rrdlandvmg-qvabremcrb-rwz-cod [id number] mg capsule 1 cap PO Q4H PRN (Reason: Pain) valacyclovir [Valtrex] 1 gram tablet 1,000 mg PO DAILY PRN (Reason: outbreak) hyoscyamine sulfate 0.125 mg tablet 0.125 mg PO BID-QID PRN (Reason: Cough) biotin 5,000 mcg tablet,disintegrating 10,000 mcg PO DAILY vitamin B complex [B Complex-Vitamin B12] Tablet 1 tab PO DAILY lisinopril 5 mg tablet 5 mg PO QHS venlafaxine 75 mg tablet 75 mg PO DAILY glipizide 10 mg tablet extended release 24hr 10 mg PO BID prednisone 5 mg tablet 5 mg PO DAILY venlafaxine [Effexor XR] 150 mg capsule,extended release 24hr 150 mg PO DAILY clopidogrel 75 mg tablet 75 mg PO DAILY carvedilol 3.125 mg tablet 3.125 mg PO BID levothyroxine [Euthyrox] 88 mcg tablet 88 mcg PO DAILY diphenhydramine HCl [Benadryl Allergy] 25 mg tablet 50 mg PO DIRECTED PRN (Reason: Allergy Symptoms) Rx Instructions: take [address] scan rosuvastatin [Crestor] 10 mg Tablet 10 mg PO QHS hydroxychloroquine 200 mg tablet 200 mg PO BID Qty: 60 0RF ondansetron HCl 8 mg tablet 8 mg PO BID PRN (Reason: nausea and vomiting) Qty: 10 0RF Referrals / Follow Up: Kimi López MD [Primary Care Provider] - (Contact office to follow-up in 1 week to review low blood sugars. ) Golden Flood MD [Med Staff - Active Staff] - (Follow-up in 10 days. You will need to contact our office to schedule an appointment. ) Disposition Disposition (needs filled in before D/C Order can be placed): Home, Self Care Charges/Coding Visit Charges Inpatient E&M: 42803 Disch Hosp (No charge; post-op)
[2022-11-13] MEDS: Venlafaxine XR 150 MG Capsule PO (09:41)
[2022-11-13] MEDS: Aspirin E.C. 81 MG Tablet PO (09:41)
[2022-11-13] MEDS: Docusate Sodium 100 MG Capsule PO (09:42)
[2022-11-13] MEDS: Carvedilol 3.125 MG TABLET PO (09:42)
[2022-11-13] MEDS: Hydroxychloroquine 200 MG Tablet PO (09:42)
[2022-11-13] MEDS: Potassium Chloride Oral Tablet 20 MEQ PO (09:42)
[2022-11-13] MEDS: predniSONE 5 MG Tablet PO (09:43)
[2022-11-13] MEDS: Venlafaxine HCl 75 MG Tablet PO (09:43)
[2022-11-13] MEDS: predniSONE 10 MG Tablet PO (09:53)
[2022-11-13 11:35] LABS: Bedside Glucose 192 mg/dL (74-106)
[2022-11-13 12:12] VITALS: BP 118/46; PULSE 74; RESP 18; TEMP 36.8; O2SAT 96
== END 2022-11-13 14:10 | disposition home or self-care (01) | DRG 231 ==
LOC: ACINP 09:15 → MS3 15:40
PROVIDERS: Anesthesiology; Admitting Provider Surgery; PCP Internal Medicine; Referring Provider Surgery; Visit Provider Surgery
PROC: 0DTF4ZZ Resection of Right Large Intestine, Percutaneous Endoscopic Approach (ICD-10-PCS; CPT 44205; principal; 2022-11-11 11:15)
DX: C18.3 Malignant neoplasm of hepatic flexure (principal); E11.649 Type 2 diabetes mellitus with hypoglycemia without coma; D64.9 Anemia, unspecified; E87.6 Hypokalemia; N18.9 Chronic kidney disease, unspecified; Z87.891 Personal history of nicotine dependence; R33.9 Retention of urine, unspecified; Z79.52 Long term (current) use of systemic steroids
CPT/HCPCS: 36415; 71046; 74177; 80048; 80053; 82378; 82962; 83036; 83735; 85025; 85027; 85610; 85730; 86850; 86900; 86901; 86920; 88309; 93005; 94668; 94762; 99252; J7040; J7120; P9016; Q9967; C1760; G0463; J2405; J3475; J3490

== ENCOUNTER 2022-11-15 08:52 | Inpatient (IN) | payer MEDICAID, SELFPAY ==
[2022-11-15] VITALS (7 sets, daily range): BP systolic 140–155; BP diastolic 55–73; PULSE 90–110; RESP 16–18; TEMP 36.5–36.8; O2SAT 93–95; BMI 29.5; BMI 28.3
--- NOTE | 2022-11-15 09:07 | CT_ITS ---
STUDY: CT ABDOMEN AND PELVIS WITHOUT CONTRAST REASON FOR EXAM: Female, 62 years old. Recent colectomy of the hepatic flexure. Patient presents with the history of nausea and abdominal pain. RADIATION DOSAGE (If Supplied By Facility): CTDIvol = ( 13.41 ) mGy, DLP = ( 797.24 ) mGycm TECHNIQUE: Transaxial images were obtained from the dome of the diaphragm to the symphysis pubis without oral contrast, and without intravenous contrast. Sagittal and coronal images were reconstructed. Individualized dose optimization techniques were used for this CT. COMPARISON: Comparison is made with prior study dated 05/06/2023. FINDINGS: Calcified right infrahilar lymph nodes and subcarinal lymph nodes. Mild degree of increased markings at the lung bases suggestive of bibasilar atelectasis. Coronary artery calcification. Normal liver. Small amount of the perihepatic fluid. Stable 7.6 mm cyst in the posterior aspect of the right lobe of the liver in the region of the dome of the liver. The patient is status post cholecystectomy. Normal spleen. Normal pancreas. Normal bilateral adrenal glands. Stable right renal cysts. Stable left renal cyst. Normal visualized stomach. There is minimal fluid distention of the small bowel loops down to the level of the terminal ileum. This may represent an ileus pattern. The patient is status post right hemicolectomy with anastomosis in the mid transverse colon. Increased markings are seen in the surrounding peritoneal fat in keeping with the recent surgical intervention. Normal abdominal aorta. Normal inferior vena cava. Normal retroperitoneum. Normal urinary bladder. Small amount of free fluid is seen in the cul-de-sac. Normal abdominal wall. There are degenerative changes of the visualized lumbar spine. CT/Abdomen/Pelvis without Cont IMPRESSION: Status post right hemicolectomy with anastomosis in the mid transverse colon. Postoperative changes are seen within the mesenteric fat at that site. There is no evidence of a anastomotic leak. Mildly fluid-filled distended small bowel loops down to the anastomotic site. This may represent an ileus pattern. Small amount of perihepatic fluid as well as fluid in the cul-de-sac. Electronically Signed: Franco Sullivan MD at 10:21 EST ,
--- NOTE | 2022-11-15 09:09 | EX.ED.DYSGE1 ---
HPI History of Present Illness Chief Complaint: Nausea/Vomiting Informant: patient Onset/Context/Timing Onset: Yesterday Narrative Narrative: Patient present secondary to postop abdominal pain and nausea. She had an elective right hemicolectomy on November 11 secondary to colon cancer. She was discharged from the hospital on November 13. Last evening, the evening of November 14 patient developed increased pain with nausea. She has been taking hydrocodone and Zofran without improvement. She did report a small bowel movement last evening. [facility] Medical History (Updated 11/15/22 @ 16:[address] Jackie Cardozo MD) Acid reflux Anemia Anxiety Breast cyst Cancer Cardiology follow-up encounter Carpal tunnel syndrome Diabetes Dietary restriction Erythromelalgia Fibromyalgia Foot fracture, left Foot fracture, right Former smoker Gastric reflux Gastroenteritis Hepatitis History of chronic kidney disease History of diabetes mellitus History of echocardiogram History of heart attack History of renal disease History of steroid therapy Hypertension Infectious mononucleosis Injury of head and neck Leg cramps Low iron Measles Migraines Neuropathy Osteopenia Post-menopausal Rheumatoid arthritis Seasonal allergies Shingles Shortness of breath on exertion Small fiber neuropathy Thyroid disease UTI (urinary tract infection) Home Medications amlodipine 5 mg tablet 5 mg PO LUNCH BP 04/02/22 [History Last Taken 11/14/22] aspirin 81 mg tablet,delayed release (Adult Aspirin Regimen) 81 mg PO DAILY HEART 04/02/22 [History Last Taken 11/14/22] famotidine 40 mg tablet 40 mg PO QHS GERD 04/02/22 [History Last Taken 11/14/22] ibuprofen 800 mg tablet 800 mg PO Q6H PRN PRN Pain 04/02/22 [History Last Taken 11/15/22] nystatin 100,000 unit/gram topical powder (Nystop) 100,000 gm topical PRN PRN Skin Cleansing 04/02/22 [History Last Taken Unknown] biotin 5,000 mcg disintegrating tablet 10,000 mcg PO DAILY SUPPLEMENT 08/26/22 [History Last Taken 11/14/22] butalbital 50 mg-acetaminophen 325 mg-caffeine 40 mg-codeine 30 mg cap 1 cap PO Q4H PRN Pain 08/26/22 [History Last Taken 1 Week Ago ~11/08/22] hyoscyamine sulfate 0.125 mg tablet 0.125 mg PO BID-QID PRN Cough 08/26/22 [History Last Taken Unknown] valacyclovir 1 gram tablet (Valtrex) 1,000 mg PO DAILY PRN outbreak 08/26/22 [History Last Taken Unknown] vitamin B complex (B Complex-Vitamin B12 tablet) 1 tab PO DAILY SUPPLEMENT 08/26/22 [History Last Taken 11/14/22] lisinopril 5 mg tablet 5 mg PO QHS BP 10/31/22 [History Last Taken 11/14/22] carvedilol 3.125 mg tablet 3.125 mg PO BID BP/HEART 11/05/22 [History Last Taken 11/14/22] clopidogrel 75 mg tablet 75 mg PO DAILY BLOOD THINNER 11/05/22 [History Last Taken 11/14/22] glipizide 10 mg tablet, extended release 24 hr 10 mg PO BID DIABETIC 11/05/22 [History Last Taken 11/14/22] levothyroxine 88 mcg tablet (Euthyrox) 88 mcg PO DAILY THYROID 11/05/22 [History Last Taken 11/14/22] prednisone 5 mg tablet 5 mg PO DAILY RA 11/05/22 [History Last Taken 11/14/22] rosuvastatin 10 mg tablet (Crestor) 10 mg PO QHS CHOLESTEROL 11/05/22 [History Last Taken 11/10/22 22:00] venlafaxine 150 mg capsule,extended release 24 hr (Effexor XR) 150 mg PO DAILY DEPRESSION 11/05/22 [History Last Taken 11/14/22] venlafaxine 75 mg tablet 75 mg PO DAILY DEPRESSION 11/05/22 [History Last Taken 11/14/22] hydroxychloroquine 200 mg tablet 200 mg PO BID RA #60 tabs 11/06/22 [Rx Last Taken 11/14/22] hydrocodone-acetaminophen 5-325mg 5mg-325mg 1 tab PO Q6H PRN pain 3 days #10 tabs 11/13/22 [Rx Last Taken 11/15/22] ondansetron HCl 8 mg tablet 8 mg PO Q6H 11/15/22 [History Last Taken 11/15/22] Allergy/AdvReac Type Severity Reaction Status Date / Time Iodinated Contrast Media Allergy Intermediate Hives Verified 11/07/22 09:06 [IVP dye] Seasonal Allergies: Uncoded Allergy Mild Hives Verified 11/07/22 09:06 levofloxacin [From Levaquin] Allergy PT UNSURE Verified 11/15/22 13:26 OF REACTION liraglutide [From Victoza] Allergy dehydration Verified 11/15/22 13:26 - ended up in hospital Sulfa (Sulfonamide Allergy pt states Verified 11/15/22 13:26 Antibiotics) has [sulfa drugs] tolerated some acetaminophen [From Percocet] AdvReac Itching Verified 11/07/22 09:06 adhesive AdvReac Rash Verified 11/07/22 09:06 hydrochlorothiazide AdvReac pt can tke Verified 11/15/22 13:26 tablet, but not capsule hydrocodone AdvReac Itching Verified 11/07/22 09:06 oxycodone [From Percocet] AdvReac Itching Verified 11/07/22 09:06 Family History Grandfather Cancer Heart disease Father Cancer Heart disease Diabetes Uncle Cancer Aunt Cancer Brother Heart disease Surgical History H/O heart artery stent History of lumbar laminectomy Hx of appendectomy Hx of cholecystectomy Hx of colonoscopy Hx of fusion of cervical spine Hx of release of tendon Hx of tonsillectomy Social History Smoking Status: Former smoker alcohol intake: never substance use type: does not use caffeine: Yes Type: carbonated beverages and tea what type of physical activity do you participate in: none seatbelt use: always do you feel safe at home: Yes ROS ROS ED Constitutional Constitutional ED: Denies chills or fever(s) Eyes Eyes: Denies change in vision or discharge from eye(s) ENT ENT ED: Denies discharge from eye(s), rhinorrhea or sore throat Cardiovascular Cardiovascular: Denies chest pain or palpitations Respiratory/Chest Respiratory/Chest: Denies cough or dyspnea Gastrointestinal Gastrointestinal: Reports abdominal pain and nausea; Denies diarrhea or vomiting Genitourinary Genitourinary ED: Denies dysuria Musculoskeletal Musculoskeletal: Denies back pain or extremity pain Integumentary Denies Abrasions or rash Neurologic Neurologic: Denies headache(s) or weakness Psychiatric Psychiatric: Denies anxiety or depression Endocrine Endocrinology: Denies polydipsia or polyuria Allergic/Immunologic Allergic/Immunologic ED: Denies lip swelling or urticaria EXAM Physical Exam Const Vital Signs: 11/15/22 08:53 11/15/22 10:56 11/15/22 11:13 Temperature 98.1 F 97.8 F Temperature Source Oral Temporal Pulse Rate 94 95 Respiratory Rate 16 18 Blood Pressure 141/62 H 140/69 H Blood Pressure Mean 88 92 Pulse Ox 95 95 93 Oxygen Delivery Method Room Air Room Air Positive well nourished and well developed General Appearance ED: well developed Eyes EOMs intact bilaterally Neck no lymphadenopathy Chest Wall inspection of chest normal and palpation of chest normal Resp normal respiratory effort and clear to auscultation bilaterally Cardio regular rate and regular rhythm GI GI Narrative: Abdomen soft and slightly distended. Hypoactive bowel sounds. Surgical sites clean. Extremity normal to inspection Neuro oriented x3 and no sensory deficits noted Motor Exam: strength 5/5 throughout Psych mental status grossly normal Skin no rashes or lesions noted MDM MDM MDM Narrative Medical decision making narrative: Patient was given a dose of Dilaudid and Phenergan for pain and nausea control. IV fluids ordered. Lab work obtained to evaluate for leukocytosis, anemia, electrolyte derangement. CT scan of the abdomen pelvis ordered. Lab Data Attestation: I reviewed the patient's lab results. Labs: Laboratory Results - last 24 hr 11/15/22 11/15/22 09:25 09:25 WBC 17.7 H RBC 4.56 Hgb 11.3 L Hct 38.3 MCV 84.0 MCH 24.8 L MCHC 29.5 L RDW Std Deviation 55.2 H RDW Coeff of Emilio 17.9 H Plt Count 409 MPV 9.4 Immature Gran % (Auto) 0.700 Neut % (Auto) 82.3 H Lymph % (Auto) 8.[address] [place] % (Auto) 7.0 Eos % (Auto) 1.7 Baso % (Auto) 0.3 Absolute Neuts (auto) 14.5 H Absolute Lymphs (auto) 1.42 Nucleated RBC % 0 Sodium 142 Potassium 4.5 Chloride 107 Carbon Dioxide 24.0 Anion Gap 11 BUN 19 H Creatinine 1.10 H Estim Creat Clear Calc 53.49 Est GFR (MDRD) Af Amer 65 Est GFR (MDRD) Non-Af 53 L BUN/Creatinine Ratio 17.3 Glucose 197 H Calcium 9.3 Total Bilirubin 0.30 Direct Bilirubin 0.15 AST 8 L ALT 15 Alkaline Phosphatase 77 Total Protein 6.8 Albumin 2.6 L Globulin 4.2 Radiography Diagnostic Testing: Clinical Impression(s) from Imaging Studies Abdomen/Pelvis CT 11/15/22 09:07 IMPRESSION: Status post right hemicolectomy with anastomosis in the mid transverse colon. Postoperative changes are seen within the mesenteric fat at that site. There is no evidence of a anastomotic leak. Mildly fluid-filled distended small bowel loops down to the anastomotic site. This may represent an ileus pattern. Small amount of perihepatic fluid as well as fluid in the cul-de-sac. Electronically Signed: Franco Sullivan MD at 10:21 EST , Treatment and Re-Evaluation Narrative: CBC reveals a white count of 17.7. Patient's white count has been elevated on her recent labs and she has been receiving steroids. Chemistry studies are largely unremarkable. Glucose is 197. LFTs are unremarkable. CT scan of the abdomen and pelvis reveals postoperative changes status post right hemicolectomy. There is no evidence of anastomotic leak. Mildly fluid-filled distended small bowel loops down to the anastomotic site are noted. This may represent ileus. On repeat evaluation patient states that her pain and nausea are significantly improved. Abdomen remains soft. I do not auscultate any bowel sounds at this time. I spoke with Dr. Flood, her surgeon. He will see the patient in the emergency room with plans to admit her. Discharge Plan Dx/Rx/DC Orders Clinical Impression: Postoperative ileus Disposition Disposition: Acute Care Hospital [facility] Discharge Date/Time: 11/15/22 12:52
[2022-11-15] MEDS: proMETHazine 25 MG/ML Syringe 12.5 MG IM ×2 (09:15→19:55)
[2022-11-15] MEDS: 0.9% Normal Saline 1,000 ML 150 ML IV (09:24)
[2022-11-15] MEDS: HYDROmorphone 1 MG/ML Syringe 0.5 MG IV (09:25)
[2022-11-15 09:34] LABS: Absolute Lymphocyte Count 1.42 X10^3/uL (0.83-4.51); Absolute Neutrophil Count 14.5 X10^3/uL (2.0-7.7); Basophil# 0.06 X10^3/uL; Basophil% 0.3 % (0-1); Eosinophils% 1.7 % (0-5); Hematocrit 38.3 % (37-47); Hemoglobin 11.3 g/dL (12.0-15.0); Lymphocyte # 1.42 X10^3/ul (0.83-4.51); Mean Corp Hgb Conc 29.5 g/dL (32-36); Mean Corpuscular Hgb 24.8 pg (27.0-32.0); Mean Platelet Vol. 9.4 fl (6.2-12.0); Monocyte# 1.24 X10^3/uL; NRBC Flagged by Analyzer 0 % (0-5); Neutrophil # 14.53 X10^3/uL (2.7-7.7); Neutrophil % 82.3 % (47-70); Platelet Count 409 K/mm3 (150-450); RBC Distribution Width CV 17.9 % (11.6-14.6); RBC Distribution Width SD 55.2 fl (35.1-43.9); Red Blood Count 4.56 M/mm3 (4.2-5.4); White Blood Count 17.7 K/mm3 (4.4-11.0)
[2022-11-15 09:52] LABS: AST(SGOT) 8 U/L (15-37); Alanine Aminotransfer ALT/SGPT 15 U/L (13-56); Albumin, Serum 2.6 g/dL (3.2-5.0); Alkaline Phosphatase 77 U/L (45-117); Anion Gap 11 (5-15); BUN 19 mg/dL (7-18); BUN/Creat Ratio 17.3 RATIO (10-20); Bilirubin, Direct 0.15 mg/dL (0.00-0.30); Calcium,Total 9.3 mg/dL (8.5-10.1); Chloride 107 mmol/L (98-107); EST Glomerular Filtration Rate 53 mL/min (>60); Est Glom Filt Rate - Afr Amer 65 mL/min (>60); Estimated Creatinine Clearance 53.49 ml/min; Globulin 4.2 g/dL (2.2-4.2); Glucose 197 mg/dL (74-106); Potassium 4.5 mmol/L (3.5-5.1); Protein, Total 6.8 g/dL (6.4-8.2); Sodium Level 142 mmol/L (136-145)
--- NOTE | 2022-11-15 11:48 | PCM.HP.BLA ---
History and Physical Date of Admission: 11/15/22 62-year-old female.She was just hospitalized at the [facility] from November 12, 2022 through November 13, 2022. I performed a laparoscopic right colectomy because of a blood loss associated hepatic flexure colon cancer. She did well postoperatively. She is taken 3 [place] tablets since discharge. She is taking some Tylenol. By report last night she developed abdominal pain and nausea. She presented to the emergency room via squad. Primary concern is abdominal distention and nausea. She is very complicated. She has had a fairly recent myocardial infarction she was on clopidogrel preoperatively for a coronary stent. She has rheumatoid arthritis and is on chronic 5 mg of prednisone therapy. Because of severe anemia preoperatively she did require 2 units of blood to be given postoperatively. Her current laboratory demonstrates a white count of 17.7 hemoglobin 11.3 hematocrit 38.3 platelet count 409,000. She typically takes 5 mg of prednisone daily and this was increased to 10 mg daily for 2 days at discharge. She had been mildly hypoglycemic during her hospitalization and it was felt that the prednisone stress dose its would help. Her current glucose level on presentation is 197. She states that her last bowel movement was yesterday.
--- NOTE | 2022-11-15 11:52 | HP.PCM_ITS ---
HPI - General General Date of Admission: 11/15/22 Chief Complaint: Abdominal distention and nausea HPI Narrative ESTELLA SU, is a 62 F who presents 62-year-old female.She was just hospitalized at the [facility] from November 12, 2022 through November 13, 2022. I performed a laparoscopic right colectomy because of a blood loss associated hepatic flexure colon cancer. She did well postoperatively. She is taken 3 [place] tablets since discharge. She is taking some Tylenol. By report last night she developed abdominal pain and nausea. She presented to the emergency room via squad. Primary concern is abdominal distention and nausea. She is very complicated. She has had a fairly recent myocardial infarction she was on clopidogrel preoperatively for a coronary stent. She has rheumatoid arthritis and is on chronic 5 mg of prednisone therapy. Because of severe anemia preoperatively she did require 2 units of blood to be given postoperatively. Her current laboratory demonstrates a white count of 17.7 hemoglobin 11.3 hematocrit 38.3 platelet count 409,000. She typically takes 5 mg of prednisone daily and this was increased to 10 mg daily for 2 days at discharge. She had been mildly hypoglycemic during her hospitalization and it was felt that the prednisone stress dose its would help. Her current glucose level on presentation is 197. She states that her last bowel movement was yesterday. She had an abdominal pelvic CT scan. Shows evidence of right hemicolectomy with anastomosis in the transverse colon postoperative changes are seen in the mesenteric fat no evidence for anastomotic leak mildly fluid-filled distended small bowel loops down to the anastomotic site suspect ileus small amount of perihepatic fluid [facility] Medical History (Updated 11/15/22 @ 11:[address] Golden Flood MD) Acid reflux Anemia Anxiety Breast cyst Cancer Cardiology follow-up encounter Carpal tunnel syndrome Diabetes Dietary restriction Erythromelalgia Fibromyalgia Foot fracture, left Foot fracture, right Former smoker Gastric reflux Gastroenteritis Hepatitis History of chronic kidney disease History of diabetes mellitus History of echocardiogram History of heart attack History of renal disease History of steroid therapy Hypertension Infectious mononucleosis Injury of head and neck Leg cramps Low iron Measles Migraines Neuropathy Osteopenia Post-menopausal Rheumatoid arthritis Seasonal allergies Shingles Shortness of breath on exertion Small fiber neuropathy Thyroid disease UTI (urinary tract infection) Home Medications amlodipine 5 mg tablet 5 mg PO LUNCH BP 04/02/22 [History Last Taken 11/14/22] aspirin 81 mg tablet,delayed release (Adult Aspirin Regimen) 81 mg PO DAILY HEART 04/02/22 [History Last Taken 11/15/22] famotidine 40 mg tablet 40 mg PO QHS GERD 04/02/22 [History Last Taken 11/14/22] ibuprofen 800 mg tablet 800 mg PO Q6H PRN PRN Pain 04/02/22 [History Last Taken 11/15/22] nystatin 100,000 unit/gram topical powder (Nystop) 100,000 gm topical PRN PRN Skin Cleansing 04/02/22 [History Last Taken Unknown] biotin 5,000 mcg disintegrating tablet 10,000 mcg PO DAILY SUPPLEMENT 08/26/22 [History Last Taken 11/14/22] butalbital 50 mg-acetaminophen 325 mg-caffeine 40 mg-codeine 30 mg cap 1 cap PO Q4H PRN Pain 08/26/22 [History Last Taken 1 Week Ago ~11/08/22] hyoscyamine sulfate 0.125 mg tablet 0.125 mg PO BID-QID PRN Cough 08/26/22 [History Last Taken Unknown] valacyclovir 1 gram tablet (Valtrex) 1,000 mg PO DAILY PRN outbreak 08/26/22 [History Last Taken 1 Year Ago ~11/15/21] vitamin B complex (B Complex-Vitamin B12 tablet) 1 tab PO DAILY SUPPLEMENT 08/26/22 [History Last Taken 11/14/22] lisinopril 5 mg tablet 5 mg PO QHS BP 10/31/22 [History Last Taken 11/14/22] carvedilol 3.125 mg tablet 3.125 mg PO BID BP/HEART 11/05/22 [History Last Taken 11/14/22] clopidogrel 75 mg tablet 75 mg PO DAILY BLOOD THINNER 11/05/22 [History Last Taken 11/14/22] glipizide 10 mg tablet, extended release 24 hr 10 mg PO BID DIABETIC 11/05/22 [History Last Taken 11/14/22] levothyroxine 88 mcg tablet (Euthyrox) 88 mcg PO DAILY THYROID 11/05/22 [History Last Taken 11/14/22] prednisone 5 mg tablet 5 mg PO DAILY RA 11/05/22 [History Last Taken 11/14/22] rosuvastatin 10 mg tablet (Crestor) 10 mg PO QHS CHOLESTEROL 11/05/22 [History Last Taken 11/10/22 22:00] venlafaxine 150 mg capsule,extended release 24 hr (Effexor XR) 150 mg PO DAILY DEPRESSION 11/05/22 [History Last Taken 11/14/22] venlafaxine 75 mg tablet 75 mg PO DAILY DEPRESSION 11/05/22 [History Last Taken 11/14/22] hydroxychloroquine 200 mg tablet 200 mg PO BID RA #60 tabs 11/06/22 [Rx Last Taken 11/14/22] hydrocodone-acetaminophen 5-325mg 5mg-325mg 1 tab PO Q6H PRN pain 3 days #10 tabs 11/13/22 [Rx Last Taken 11/15/22] ondansetron HCl 8 mg tablet 8 mg PO Q6H 11/15/22 [History Last Taken 11/15/22] Allergy/AdvReac Type Severity Reaction Status Date / Time Iodinated Contrast Media Allergy Intermediate Hives Verified 11/07/22 09:06 [IVP dye] Seasonal Allergies: Uncoded Allergy Mild Hives Verified 11/07/22 09:06 levofloxacin [From Levaquin] Allergy PT UNSURE Verified 11/07/22 09:06 OF REACTION liraglutide [From Victoza] Allergy PT UNSURE Verified 11/07/22 09:06 OF REACTION Sulfa (Sulfonamide Allergy PT UNSURE Verified 11/07/22 09:06 Antibiotics) OF REACTION [sulfa drugs] acetaminophen [From Percocet] AdvReac Itching Verified 11/07/22 09:06 adhesive AdvReac Rash Verified 11/07/22 09:06 hydrochlorothiazide AdvReac PT UNSURE Verified 11/07/22 09:06 OF REACTION hydrocodone AdvReac Itching Verified 11/07/22 09:06 oxycodone [From Percocet] AdvReac Itching Verified 11/07/22 09:06 Family History Grandfather Cancer Heart disease Father Cancer Heart disease Diabetes Uncle Cancer Aunt Cancer Brother Heart disease Surgical History H/O heart artery stent History of lumbar laminectomy Hx of appendectomy Hx of cholecystectomy Hx of colonoscopy Hx of fusion of cervical spine Hx of release of tendon Hx of tonsillectomy Social History Smoking Status: Former smoker alcohol intake: never substance use type: does not use caffeine: Yes Type: carbonated beverages and tea what type of physical activity do you participate in: none seatbelt use: always do you feel safe at home: Yes ROS Cardiovascular Cardiovascular: Denies chest pain at rest Respiratory/Chest Respiratory/Chest: Denies chest tightness Gastrointestinal Gastrointestinal: Reports abdominal pain and nausea Vital Signs Vital Signs Vital Signs: 11/15/22 08:53 11/15/22 10:56 11/15/22 11:13 Temperature 98.1 F 97.8 F Temperature Source Oral Temporal Pulse Rate 94 95 Respiratory Rate 16 18 Blood Pressure 141/62 H 140/69 H Blood Pressure Mean 88 92 Pulse Ox 95 95 93 Oxygen Delivery Method Room Air Room Air Weight Weight: 194 lb 3.636 oz Body Mass Index (BMI) 29.5 Physical Exam Const alert, oriented x3 and no apparent distress General Appearance: cooperative and well kempt HEENT normocephalic Head and Scalp: normal to inspection Neck full ROM Resp normal respiratory effort Auscultation: clear to auscultation bilaterally Cardio regular rate and regular rhythm GI GI Narrative: Abdomen is distended. Quiet. Incisions are clean and dry. No significant localization of tenderness Extremity normal to inspection Skin no rashes or lesions noted Results Lab / Micro Data Result Diagrams: 11/15/22 09:25 11/15/22 09:25 Labs: Laboratory Results - last 24 hr 11/15/22 09:25: WBC 17.7 H, RBC 4.56, Hgb 11.3 L, Hct 38.3, MCV 84.0, MCH 24.8 L , MCHC 29.5 L, RDW Std Deviation 55.2 H, RDW Coeff of Emilio 17.9 H, Plt Count 409, MPV 9.4, Immature Gran % (Auto) 0.700, Neut % (Auto) 82.3 H, Lymph % (Auto) 8.0 L, [place] % (Auto) 7.0, Eos % (Auto) 1.7, Baso % (Auto) 0.3, Absolute Neuts (auto) 14.5 H, Absolute Lymphs (auto) 1.42, Nucleated RBC % 0 11/15/22 09:25: Sodium 142, Potassium 4.5, Chloride 107, Carbon Dioxide 24.0, Anion Gap 11, BUN 19 H, Creatinine 1.10 H, Estim Creat Clear Calc 53.49, Est GFR (MDRD) Af Amer 65, Est GFR (MDRD) Non-Af 53 L, BUN/Creatinine Ratio 17.3, Glucose 197 H, Calcium 9.3, Total Bilirubin 0.30, Direct Bilirubin 0.15, AST 8 L , ALT 15, Alkaline Phosphatase 77, Total Protein 6.8, Albumin 2.6 L, Globulin 4.2 Radiology Impression Abdomen/Pelvis CT 11/15/22 09:07 IMPRESSION: Status post right hemicolectomy with anastomosis in the mid transverse colon. Postoperative changes are seen within the mesenteric fat at that site. There is no evidence of a anastomotic leak. Mildly fluid-filled distended small bowel loops down to the anastomotic site. This may represent an ileus pattern. Small amount of perihepatic fluid as well as fluid in the cul-de-sac. Electronically Signed: Franco Sullivan MD at 10:21 EST , Assessment & Plan Assessment/Plan (1) Postoperative ileus: PLAN: We will readmit the patient treat conservatively.. Because of her diabetes and steroid dependence I will consult hospitalist to assist with the medical aspects of her care at this time I have instructed the patient that I have strongly encourage ambulation we will try to treat the abdominal pain avoiding narcotics as I believe that this certainly aggravates the postoperative ileus situation. Golden Flood M.D., F.A.C.S.
--- NOTE | 2022-11-15 12:41 | PN.HOSP_ITS ---
Subjective Subjective 62-year-old female presents to the hospital with increasing abdominal pain as well as some nausea and vomiting. She is hemicolectomy on Friday and now presents with what appears to be an ileus. Medicine was consulted for medical management given her history of rheumatoid arthritis as well as type 2 diabetes Objective Data Objective Data Vital Signs: Vital Signs Temp Pulse Resp BP Pulse Ox O2 Del Method 97.8 F 100 18 145/55 H 94 Room Air 11/15/22 10:56 11/15/22 12:35 11/15/22 10:56 11/15/22 12:35 11/15/22 12:35 11/15/22 12:35 Oxygen Delivery Method Room Air Weight: 194 lb 3.636 oz Body Mass Index (BMI) 29.5 Lab / Micro Data Result Diagrams: 11/15/22 09:25 11/15/22 09:25 Labs: Laboratory Results - last 24 hr 11/15/22 09:25: WBC 17.7 H, RBC 4.56, Hgb 11.3 L, Hct 38.3, MCV 84.0, MCH 24.8 L , MCHC 29.5 L, RDW Std Deviation 55.2 H, RDW Coeff of Emilio 17.9 H, Plt Count 409, MPV 9.4, Immature Gran % (Auto) 0.700, Neut % (Auto) 82.3 H, Lymph % (Auto) 8.0 L, [place] % (Auto) 7.0, Eos % (Auto) 1.7, Baso % (Auto) 0.3, Absolute Neuts (auto) 14.5 H, Absolute Lymphs (auto) 1.42, Nucleated RBC % 0 11/15/22 09:25: Sodium 142, Potassium 4.5, Chloride 107, Carbon Dioxide 24.0, Anion Gap 11, BUN 19 H, Creatinine 1.10 H, Estim Creat Clear Calc 53.49, Est GFR (MDRD) Af Amer 65, Est GFR (MDRD) Non-Af 53 L, BUN/Creatinine Ratio 17.3, Glucose 197 H, Calcium 9.3, Total Bilirubin 0.30, Direct Bilirubin 0.15, AST 8 L , ALT 15, Alkaline Phosphatase 77, Total Protein 6.8, Albumin 2.6 L, Globulin 4.2 Radiography Diagnostic Testing: Radiology Impression Abdomen/Pelvis CT 11/15/22 09:07 IMPRESSION: Status post right hemicolectomy with anastomosis in the mid transverse colon. Postoperative changes are seen within the mesenteric fat at that site. There is no evidence of a anastomotic leak. Mildly fluid-filled distended small bowel loops down to the anastomotic site. This may represent an ileus pattern. Small amount of perihepatic fluid as well as fluid in the cul-de-sac. Electronically Signed: Franco Sullivan MD at 10:21 EST , Physical Exam Narrative General: Alert, Oriented x3, Cooperative, No apparent distress HEENT: Atraumatic, PERRLA, EOMI, Normocephalic Oral: Moist Mucosa Neck: Supple, No JVD Lungs: Clear to auscultation, Normal air movement, No rhonchi, No wheeze, No rales Cardiovascular: Regular rate, Regular Rhythm, Normal S1, Normal S2, No murmurs Abdomen: Soft, minimally tender around incisions, Non-Distended, No Hepato- splenomegaly Extremities: No edema, Capillary Refill Less than 3 Seconds Skin: No rashes, No breakdown Musculoskeletal: No Tenderness to Palpation of Joints or Extremities Neurological: Cranial nerves II-XII grossly intact, Motor Exam 5/5 strength throughout, Sensory exam intact to light touch and pain Psych/Mental Status: Flat affect, Appropriate Assessment & Plan Assessment/Plan (1) Postoperative ileus: PLAN: Plan 1. Postoperative ileus ? Management per primary ? N.p.o. ? Leukocytosis is likely related to her recent surgery as well as extra doses of steroids that she got in the postoperative period 2. CAD status post stent/HTN/HLD ? Can hold blood pressure medications can be managed by IV if necessary ? She did have stents placed at an outside hospital last February, will need to start Plavix sooner rather than later 3. DM2 ? We will hold her oral medications ? We will place her on sliding scale insulin with Accu-Cheks every 6 hours ? We will monitor make adjustments as necessary given the fact she cannot eat but she will be on a low-dose steroid every day 4. Rheumatoid arthritis ? She is on 5 mg of prednisone daily given her recent stress it is beneficial to resume steroids ? We will place her on Solu-Medrol 20 mg IV daily 5. Hypothyroidism ? Stable ? Can hold her Synthroid as levels can be fairly steady for about a week 6. Anxiety/depression ? Stable ? Can resume her home medications when she can take p.o. DVT: SCDs Charges/Coding Visit Charges Inpatient E&M: 22585 Subs Hosp L2
[2022-11-15] MEDS: Lactated Ringers 1,000 ML 100 ML IV ×2 (13:41→22:47)
[2022-11-15] MEDS: amLODIPine 5 MG Tablet PO (14:08)
--- NOTE | 2022-11-15 15:55 | PN.SURG_ITS ---
Subjective Subjective Patient found soundly sleeping. Her mother states she did have some sharp crampy pain but was unable to relieve herself. Objective Data Objective Data Vital Signs: Vital Signs Temp Pulse Resp BP Pulse Ox O2 Del Method 98.2 F 90 18 144/63 H 95 Room Air 11/15/22 13:46 11/15/22 13:46 11/15/22 13:46 11/15/22 13:46 11/15/22 13:46 11/15/22 13:47 Oxygen Delivery Method Room Air Weight: 186 lb 8 oz Body Mass Index (BMI) 28.3 Intake & Output: Intake and Output for Last 24 Hours 11/13/22 11/14/22 11/15/22 23:59 23:59 23:59 Intake Total 825 / 825 Balance 825 / 825 Lab / Micro Data Result Diagrams: 11/15/22 09:25 11/15/22 09:25 Labs: Laboratory Results - last 24 hr 11/15/22 09:25: WBC 17.7 H, RBC 4.56, Hgb 11.3 L, Hct 38.3, MCV 84.0, MCH 24.8 L , MCHC 29.5 L, RDW Std Deviation 55.2 H, RDW Coeff of Emilio 17.9 H, Plt Count 409, MPV 9.4, Immature Gran % (Auto) 0.700, Neut % (Auto) 82.3 H, Lymph % (Auto) 8.0 L, [place] % (Auto) 7.0, Eos % (Auto) 1.7, Baso % (Auto) 0.3, Absolute Neuts (auto) 14.5 H, Absolute Lymphs (auto) 1.42, Nucleated RBC % 0 11/15/22 09:25: Sodium 142, Potassium 4.5, Chloride 107, Carbon Dioxide 24.0, Anion Gap 11, BUN 19 H, Creatinine 1.10 H, Estim Creat Clear Calc 53.49, Est GFR (MDRD) Af Amer 65, Est GFR (MDRD) Non-Af 53 L, BUN/Creatinine Ratio 17.3, Glucose 197 H, Calcium 9.3, Total Bilirubin 0.30, Direct Bilirubin 0.15, AST 8 L , ALT 15, Alkaline Phosphatase 77, Total Protein 6.8, Albumin 2.6 L, Globulin 4.2 Radiography Diagnostic Testing: Radiology Impression Abdomen/Pelvis CT 11/15/22 09:07 IMPRESSION: Status post right hemicolectomy with anastomosis in the mid transverse colon. Postoperative changes are seen within the mesenteric fat at that site. There is no evidence of a anastomotic leak. Mildly fluid-filled distended small bowel loops down to the anastomotic site. This may represent an ileus pattern. Small amount of perihepatic fluid as well as fluid in the cul-de-sac. Electronically Signed: Franco Sullivan MD at 10:21 EST , Physical Exam GI GI Narrative: Distended, quiet Assessment & Plan Assessment/Plan (1) Postoperative ileus: PLAN: She did take 1 Plavix yesterday. We are holding it today. Hopefully she can get up and mobilize and break this ileus. Golden Flood M.D., F.A.C.S.
[2022-11-15 16:55] LABS: Bedside Glucose 147 mg/dL (74-106)
[2022-11-15] MEDS: Ondansetron 4 MG/2 ML Vial IV (17:46)
--- NOTE | 2022-11-15 20:23 | NURSING ---
pt encouraged to ambulate in halls. pt stated that she just does not feel like walking due to nausea. explained that the nausea is caused because her bowels are not working well and by walking it will help her bowels to move and the nausea will subside. pt stated she just cant walk right now. gave pt phenergan for nausea and stated i will check back with her to walk when the medication starts to work.
--- NOTE | 2022-11-15 20:47 | NURSING ---
pt ambulated in halls
[2022-11-15] MEDS: Lisinopril 5 MG Tablet PO (21:06)
[2022-11-15] MEDS: Carvedilol 3.125 MG TABLET PO (21:06)
[2022-11-15 21:31] LABS: Bedside Glucose 152 mg/dL (74-106)
[2022-11-16] VITALS: BP 146/67; PULSE 103; RESP 16; TEMP 37.3; O2SAT 94
[2022-11-16] MEDS: proMETHazine 25 MG/ML Syringe 12.5 MG IM (02:13)
[2022-11-16 03:57] VITALS: BP 127/83; PULSE 102; RESP 16; TEMP 37.3; O2SAT 96
[2022-11-16] MEDS: Levothyroxine 88 MCG Tablet PO (05:19)
[2022-11-16 05:41] LABS: Bedside Glucose 142 mg/dL (74-106)
[2022-11-16 05:42] LABS: Absolute Lymphocyte Count 1.24 X10^3/uL (0.83-4.51); Absolute Neutrophil Count 12.4 X10^3/uL (2.0-7.7); Basophil# 0.09 X10^3/uL; Basophil% 0.6 % (0-1); Eosinophil# 0.29 X10^3/uL; Eosinophils% 1.9 % (0-5); Hematocrit 36.7 % (37-47); Hemoglobin 10.6 g/dL (12.0-15.0); Lymphocyte # 1.24 X10^3/ul (0.83-4.51); Lymphocyte % 8.1 % (19-41); Mean Corp Hgb Conc 28.9 g/dL (32-36); Mean Corpuscular Hgb 24.5 pg (27.0-32.0); Mean Platelet Vol. 9.4 fl (6.2-12.0); Monocyte# 1.13 X10^3/uL; Monocyte% 7.4 % (0-10); NRBC Flagged by Analyzer 0.1 % (0-5); Neutrophil % 81.2 % (47-70); Platelet Count 400 K/mm3 (150-450); RBC Distribution Width CV 17.7 % (11.6-14.6); RBC Distribution Width SD 55.5 fl (35.1-43.9); Red Blood Count 4.32 M/mm3 (4.2-5.4); White Blood Count 15.3 K/mm3 (4.4-11.0)
[2022-11-16 06:24] LABS: Anion Gap 9 (5-15); BUN 15 mg/dL (7-18); BUN/Creat Ratio 13.8 RATIO (10-20); Calcium,Total 9.1 mg/dL (8.5-10.1); Chloride 107 mmol/L (98-107); Creatinine, Serum 1.09 mg/dL (0.55-1.02); EST Glomerular Filtration Rate 54 mL/min (>60); Est Glom Filt Rate - Afr Amer 65 mL/min (>60); Estimated Creatinine Clearance 53.98 ml/min; Glucose 141 mg/dL (74-106); Potassium 4.4 mmol/L (3.5-5.1); Sodium Level 142 mmol/L (136-145)
--- NOTE | 2022-11-16 06:47 | PN.SURG_ITS ---
Subjective Subjective Patient complains of nausea and emesis overnight. She had declined an NG tube placement yesterday although I strongly requested. She is complaining of back pain and abdominal pain and severe nausea Objective Data Objective Data Vital Signs: Vital Signs Temp Pulse Resp BP Pulse Ox O2 Del Method 99.1 F 102 H 16 127/83 H 96 Room Air 11/16/22 03:57 11/16/22 03:57 11/16/22 03:57 11/16/22 03:57 11/16/22 03:57 11/16/22 03:57 Oxygen Delivery Method Room Air Weight: 186 lb 8 oz Body Mass Index (BMI) 28.3 Intake & Output: Intake and Output for Last 24 Hours 11/14/22 11/15/22 11/16/22 23:59 23:59 23:59 Intake Total 1735 / 1735 20 / 20 Output Total 1100 / 1100 400 / 400 Balance 635 / 635 -380 / -380 Lab / Micro Data Result Diagrams: 11/16/22 05:00 11/16/22 05:00 Labs: Laboratory Results - last 24 hr 11/15/22 09:25: WBC 17.7 H, RBC 4.56, Hgb 11.3 L, Hct 38.3, MCV 84.0, MCH 24.8 L , MCHC 29.5 L, RDW Std Deviation 55.2 H, RDW Coeff of Emilio 17.9 H, Plt Count 409, MPV 9.4, Immature Gran % (Auto) 0.700, Neut % (Auto) 82.3 H, Lymph % (Auto) 8.0 L, [place] % (Auto) 7.0, Eos % (Auto) 1.7, Baso % (Auto) 0.3, Absolute Neuts (auto) 14.5 H, Absolute Lymphs (auto) 1.42, Nucleated RBC % 0 11/15/22 09:25: Sodium 142, Potassium 4.5, Chloride 107, Carbon Dioxide 24.0, Anion Gap 11, BUN 19 H, Creatinine 1.10 H, Estim Creat Clear Calc 53.49, Est GFR (MDRD) Af Amer 65, Est GFR (MDRD) Non-Af 53 L, BUN/Creatinine Ratio 17.3, Glucose 197 H, Calcium 9.3, Total Bilirubin 0.30, Direct Bilirubin 0.15, AST 8 L , ALT 15, Alkaline Phosphatase 77, Total Protein 6.8, Albumin 2.6 L, Globulin 4.2 11/15/22 16:38: POC Glucose 147 H 11/15/22 21:10: POC Glucose 152 H 11/16/22 05:00: WBC 15.3 H, RBC 4.32, Hgb 10.6 L, Hct 36.7 L, MCV 85.0, MCH 24.5 L, MCHC 28.9 L, RDW Std Deviation 55.5 H, RDW Coeff of Emilio 17.7 H, Plt Count 400, MPV 9.4, Immature Gran % (Auto) 0.800, Neut % (Auto) 81.2 H, Lymph % (Auto) 8.1 L, [place] % (Auto) 7.4, Eos % (Auto) 1.9, Baso % (Auto) 0.6, Absolute Neuts (auto) 12.4 H, Absolute Lymphs (auto) 1.24, Nucleated RBC % 0.1 11/16/22 05:00: Sodium 142, Potassium 4.4, Chloride 107, Carbon Dioxide 26.0, Anion Gap 9, BUN 15, Creatinine 1.09 H, Estim Creat Clear Calc 53.98, Est GFR (MDRD) Af Amer 65, Est GFR (MDRD) Non-Af 54 L, BUN/Creatinine Ratio 13.8, Glucose 141 H, Calcium 9.1 11/16/22 05:18: POC Glucose 142 H Radiography Diagnostic Testing: Radiology Impression Abdomen/Pelvis CT 11/15/22 09:07 IMPRESSION: Status post right hemicolectomy with anastomosis in the mid transverse colon. Postoperative changes are seen within the mesenteric fat at that site. There is no evidence of a anastomotic leak. Mildly fluid-filled distended small bowel loops down to the anastomotic site. This may represent an ileus pattern. Small amount of perihepatic fluid as well as fluid in the cul-de-sac. Electronically Signed: Franco Sullivan MD at 10:21 EST , Physical Exam Narrative Patient is anxious this morning fearful of the NG tube. Resp normal respiratory effort Cardio regular rate GI GI Narrative: Obese, soft, not focally tender, absent bowel sounds Assessment & Plan Assessment/Plan (1) Postoperative ileus: PLAN: Findings still seem to be consistent with postoperative ileus. I pers onally placed an NG tube to facilitate her care. 600 cc of bilious thick material returned. She tolerated the procedure actually quite well. Abdominal x-ray is pending. I have strongly encouraged the patient to mobilize. Need her to continue to ambulate. Encouraged to use a K pad. Encouraged to use conservative measures and every attempt to try to help avoid narcotic use. Golden Flood M.D., F.A.C.S.
--- NOTE | 2022-11-16 07:00 | RAD_ITS ---
HISTORY: NG tube placement. TECHNIQUE: XR Abdomen 1 View. COMPARISON: CT prior day. FINDINGS: BOWEL GAS PATTERN: Nasogastric tube tip in the right upper quadrant near the level of the pylorus. Positive bowel gas in the abdomen, nonspecific. Suture in the midabdomen. FREE AIR: Not assessed on supine view. CALCIFICATIONS: No abnormal calcifications observed. BONES: Unremarkable. RAD/Abdomen Single View (Portable) IMPRESSION: Nasogastric tube tip at the level of the distal stomach. Electronically Signed: Monse Whittington MD at 8:09 EST ,
[2022-11-16 08:15] VITALS: BP 153/65; PULSE 100; RESP 18; TEMP 37.3; O2SAT 93
[2022-11-16] MEDS: Lactated Ringers 1,000 ML 100 ML IV ×2 (08:21→19:00)
--- NOTE | 2022-11-16 09:15 | PCM.PN.HOSP ---
Subjective Subjective Feels little bit better now with the NG tube and there have been quite a bit of output Objective Data Objective Data Vital Signs: Vital Signs Temp Pulse Resp BP Pulse Ox O2 Del Method 99.1 F 100 18 153/65 H 93 Room Air 11/16/22 08:15 11/16/22 08:15 11/16/22 08:15 11/16/22 08:15 11/16/22 08:15 11/16/22 09:00 Oxygen Delivery Method Room Air Weight: 186 lb 8 oz Body Mass Index (BMI) 28.3 Intake & Output: Intake and Output for Last 24 Hours 11/15/22 11/16/22 11/17/22 03:59 03:59 03:59 Intake Total 1735 / 1735 1006.67 / 1006.67 Output Total 1100 / 1500 400 / 400 Balance 635 / 235 606.67 / 606.67 Lab / Micro Data Result Diagrams: 11/16/22 05:00 11/16/22 05:00 Labs: Laboratory Results - last 24 hr 11/15/22 09:25: WBC 17.7 H, RBC 4.56, Hgb 11.3 L, Hct 38.3, MCV 84.0, MCH 24.8 L, MCHC 29.5 L, RDW Std Deviation 55.2 H, RDW Coeff of Emilio 17.9 H, Plt Count 409, MPV 9.4, Immature Gran % (Auto) 0.700, Neut % (Auto) 82.3 H, Lymph % (Auto) 8.0 L, [place] % (Auto) 7.0, Eos % (Auto) 1.7, Baso % (Auto) 0.3, Absolute Neuts (auto) 14.5 H, Absolute Lymphs (auto) 1.42, Nucleated RBC % 0 11/15/22 09:25: Sodium 142, Potassium 4.5, Chloride 107, Carbon Dioxide 24.0, Anion Gap 11, BUN 19 H, Creatinine 1.10 H, Estim Creat Clear Calc 53.49, Est GFR (MDRD) Af Amer 65, Est GFR (MDRD) Non-Af 53 L, BUN/Creatinine Ratio 17.3, Glucose 197 H, Calcium 9.3, Total Bilirubin 0.30, Direct Bilirubin 0.15, AST 8 L, ALT 15, Alkaline Phosphatase 77, Total Protein 6.8, Albumin 2.6 L, Globulin 4.2 11/15/22 16:38: POC Glucose 147 H 11/15/22 21:10: POC Glucose 152 H 11/16/22 05:00: WBC 15.3 H, RBC 4.32, Hgb 10.6 L, Hct 36.7 L, MCV 85.0, MCH 24.5 L, MCHC 28.9 L, RDW Std Deviation 55.5 H, RDW Coeff of Emilio 17.7 H, Plt Count 400, MPV 9.4, Immature Gran % (Auto) 0.800, Neut % (Auto) 81.2 H, Lymph % (Auto) 8.1 L, [place] % (Auto) 7.4, Eos % (Auto) 1.9, Baso % (Auto) 0.6, Absolute Neuts (auto) 12.4 H, Absolute Lymphs (auto) 1.24, Nucleated RBC % 0.1 11/16/22 05:00: Sodium 142, Potassium 4.4, Chloride 107, Carbon Dioxide 26.0, Anion Gap 9, BUN 15, Creatinine 1.09 H, Estim Creat Clear Calc 53.98, Est GFR (MDRD) Af Amer 65, Est GFR (MDRD) Non-Af 54 L, BUN/Creatinine Ratio 13.8, Glucose 141 H, Calcium 9.1 11/16/22 05:18: POC Glucose 142 H Radiography Diagnostic Testing: Radiology Impression Abdomen/Pelvis CT 11/15/22 09:07 IMPRESSION: Status post right hemicolectomy with anastomosis in the mid transverse colon. Postoperative changes are seen within the mesenteric fat at that site. There is no evidence of a anastomotic leak. Mildly fluid-filled distended small bowel loops down to the anastomotic site. This may represent an ileus pattern. Small amount of perihepatic fluid as well as fluid in the cul-de-sac. Electronically Signed: Franco Sullivan MD at 10:21 EST , KUB X-Ray 11/16/22 07:00 IMPRESSION: Nasogastric tube tip at the level of the distal stomach. Electronically Signed: Monse Whittington MD at 8:09 EST , Physical Exam Narrative General: Alert, Oriented x3, Cooperative, No apparent distress HEENT: Atraumatic, PERRLA, EOMI, Normocephalic Oral: Moist Mucosa Neck: Supple, No JVD Lungs: Clear to auscultation, Normal air movement, No rhonchi, No wheeze, No rales Cardiovascular: Regular rate, Regular Rhythm, Normal S1, Normal S2, No murmurs Abdomen: Soft, minimally tender around incisions, Non-Distended, No Hepato-splenomegaly Extremities: No edema, Capillary Refill Less than 3 Seconds Skin: No rashes, No breakdown Musculoskeletal: No Tenderness to Palpation of Joints or Extremities Neurological: Cranial nerves II-XII grossly intact, Motor Exam 5/5 strength throughout, Sensory exam intact to light touch and pain Psych/Mental Status: Flat affect, Appropriate Assessment & Plan Assessment/Plan (1) Postoperative ileus: PLAN: Plan 1. Postoperative ileus ? Management per primary ? N.p.o. ? Leukocytosis is likely related to her recent surgery as well as extra doses of steroids that she got in the postoperative period ? Continue with the NG tube 2. CAD status post stent/HTN/HLD ? Can hold blood pressure medications can be managed by IV if necessary ? She did have stents placed at an outside hospital last February, will need to start Plavix sooner rather than later 3. DM2 ? We will hold her oral medications ? We will place her on sliding scale insulin with Accu-Cheks every 6 hours ? We will monitor make adjustments as necessary given the fact she cannot eat but she will be on a low-dose steroid every day 4. Rheumatoid arthritis ? She is on 5 mg of prednisone daily given her recent stress it is beneficial to resume steroids ? We will place her on Solu-Medrol 20 mg IV daily 5. Hypothyroidism ? Stable ? Can hold her Synthroid as levels can be fairly steady for about a week 6. Anxiety/depression ? Stable ? Can resume her home medications when she can take p.o. DVT: SCDs Charges/Coding Visit Charges Inpatient E&M: 14245 Subs Hosp L2
--- NOTE | 2022-11-16 09:55 | CASEMGMT ---
SALLY GARCIA DC Planning/Readmission Assessment: Face to Face with patient for initial transition planning/care coordination assessment. Pt resting quietly in bed with her eyes closed. Pt's mother at bedside. SALLY GARCIA introduced self and role at [facility], Pt's mother voiced understanding.? Index admission: 11/11 thru 11/13 for lap right colectomy Readmission: 11/15 dx: Postop ileus ? Per pt's mother, pt had been doing well initially upon discharge but then developed the abd pain. Pt resides with her mother and was independent with all ADLs prior to the index admission. Pt has a walker and cane available at home. ? Plan: Per pt's mother, plan is for pt to return home with mother's support. Denies any needs or concerns at this time. Will continue to follow and assist with DC needs as identified. Bradley Mcclain RN CM
[2022-11-16] MEDS: amLODIPine 5 MG Tablet PO (10:47)
[2022-11-16] MEDS: Venlafaxine HCl 75 MG Tablet PO (10:47)
[2022-11-16] MEDS: Carvedilol 3.125 MG TABLET PO ×2 (10:47→20:37)
[2022-11-16 11:50] LABS: Bedside Glucose 123 mg/dL (74-106)
[2022-11-16 15:37] VITALS: BP 145/77; PULSE 100; RESP 16; TEMP 37.1; O2SAT 94
[2022-11-16 17:00] LABS: Bedside Glucose 201 mg/dL (74-106)
--- NOTE | 2022-11-16 17:27 | NURSING ---
Pt ambulated in halls at 1400, tolerated well, states that she felt well while being up and ambulating.
[2022-11-16] MEDS: Insulin Lispro 100 UNIT/ML INSULN.PEN SC (18:53)
[2022-11-16 19:15] LABS: Bedside Glucose 197 mg/dL (74-106)
[2022-11-16] MEDS: Lisinopril 5 MG Tablet PO (20:37)
[2022-11-16 21:05] VITALS: BP 148/65; PULSE 86; RESP 16; TEMP 37.1; O2SAT 94
[2022-11-16 21:20] LABS: Bedside Glucose 166 mg/dL (74-106)
[2022-11-16 23:46] LABS: Bedside Glucose 145 mg/dL (74-106)
[2022-11-17 02:58] VITALS: BP 153/64; PULSE 81; RESP 16; TEMP 37.2; O2SAT 96
[2022-11-17 05:16] LABS: Absolute Lymphocyte Count 1.55 X10^3/uL (0.83-4.51); Absolute Neutrophil Count 9.3 X10^3/uL (2.0-7.7); Basophil# 0.05 X10^3/uL; Basophil% 0.4 % (0-1); Eosinophil# 0.12 X10^3/uL; Hematocrit 32.8 % (37-47); Lymphocyte # 1.55 X10^3/ul (0.83-4.51); Lymphocyte % 12.7 % (19-41); Mean Corp Hgb Conc 30.5 g/dL (32-36); Mean Corpuscular Hgb 25.3 pg (27.0-32.0); Mean Corpuscular Volume 82.8 fL (81-99); Mean Platelet Vol. 9.2 fl (6.2-12.0); Monocyte# 1.12 X10^3/uL; Monocyte% 9.2 % (0-10); NRBC Flagged by Analyzer 0 % (0-5); Neutrophil # 9.27 X10^3/uL (2.7-7.7); Neutrophil % 76.1 % (47-70); Platelet Count 359 K/mm3 (150-450); Red Blood Count 3.96 M/mm3 (4.2-5.4); White Blood Count 12.2 K/mm3 (4.4-11.0)
[2022-11-17 05:41] LABS: Anion Gap 7 (5-15); BUN 18 mg/dL (7-18); BUN/Creat Ratio 17.3 RATIO (10-20); Chloride 105 mmol/L (98-107); Creatinine, Serum 1.04 mg/dL (0.55-1.02); EST Glomerular Filtration Rate 57 mL/min (>60); Est Glom Filt Rate - Afr Amer 69 mL/min (>60); Estimated Creatinine Clearance 56.58 ml/min; Glucose 120 mg/dL (74-106); Potassium 4.5 mmol/L (3.5-5.1); Sodium Level 140 mmol/L (136-145)
[2022-11-17] MEDS: Levothyroxine 88 MCG Tablet PO (06:08)
[2022-11-17 06:41] LABS: Bedside Glucose 87 mg/dL (74-106)
--- NOTE | 2022-11-17 07:10 | PCM.PN.SRG ---
Subjective Subjective Patient feeling much improved. Abdominal discomfort only with walking. She feels her bowels starting to grumble. No flatus or stool yet. She is interested in having her NG tube removed as soon as possible Objective Data Objective Data Vital Signs: Vital Signs Temp Pulse Resp BP Pulse Ox O2 Del Method 98.9 F 81 16 153/64 H 96 Room Air 11/17/22 02:58 11/17/22 02:58 11/17/22 02:58 11/17/22 02:58 11/17/22 02:58 11/17/22 02:58 Oxygen Delivery Method Room Air Weight: 186 lb 8 oz Body Mass Index (BMI) 28.3 Intake & Output: Intake and Output for Last 24 Hours 11/15/22 11/16/22 11/17/22 23:59 23:59 23:59 Intake Total 1735 / 1735 2165.01 / 2165.01 60 / 60 Output Total 1100 / 1100 2500 / 2500 1400 / 1400 Balance 635 / 635 -334.99 / -334.99 -1340 / -1340 Lab / Micro Data Result Diagrams: 11/17/22 05:00 11/17/22 05:00 Labs: Laboratory Results - last 24 hr 11/16/22 11:33: POC Glucose 123 H 11/16/22 16:42: POC Glucose 201 H 11/16/22 18:48: POC Glucose 197 H 11/16/22 20:35: POC Glucose 166 H 11/16/22 23:24: POC Glucose 145 H 11/17/22 05:00: WBC 12.2 H, RBC 3.96 L, Hgb 10.0 L, Hct 32.8 L, MCV 82.8, MCH 25.3 L, MCHC 30.5 L D, RDW Std Deviation 52.0 H, RDW Coeff of Emilio 17.0 H, Plt Count 359, MPV 9.2, Immature Gran % (Auto) 0.600, Neut % (Auto) 76.1 H, Lymph % (Auto) 12.7 L, [place] % (Auto) 9.2, Eos % (Auto) 1.0, Baso % (Auto) 0.4, Absolute Neuts (auto) 9.3 H, Absolute Lymphs (auto) 1.55, Nucleated RBC % 0 11/17/22 05:00: Sodium 140, Potassium 4.5, Chloride 105, Carbon Dioxide 28.0, Anion Gap 7, BUN 18, Creatinine 1.04 H, Estim Creat Clear Calc 56.58, Est GFR (MDRD) Af Amer 69, Est GFR (MDRD) Non-Af 57 L, BUN/Creatinine Ratio 17.3, Glucose 120 H, Calcium 9.0 11/17/22 06:10: POC Glucose 87 Radiography Diagnostic Testing: Radiology Impression KUB X-Ray 11/16/22 07:00 IMPRESSION: Nasogastric tube tip at the level of the distal stomach. Electronically Signed: Monse Whittington MD at 8:09 EST , Physical Exam Narrative NG tube has gone from a thick bilious material to now a brown mixed with some thickness and liquid. GI GI Narrative: Soft, nontender, bowel sounds present Assessment & Plan Assessment/Plan (1) Postoperative ileus: PLAN: Patient was anxious and depressed by her situation yesterday now in a much improved mood. She is amazingly tolerating the NG tube. Abdominal exam is unremarkable with resumption now of bowel sounds. I anticipate hopeful removal of the NG tube today with hopeful resumption of flatus and stool I will resume her Plavix therapy as I do not believe that she will require surgical intervention Golden Flood M.D., F.A.C.S.
[2022-11-17] MEDS: Lactated Ringers 1,000 ML 70 ML IV ×2 (08:08→17:30)
[2022-11-17 08:10] VITALS: BP 150/65; PULSE 68; RESP 16; TEMP 36.9; O2SAT 96
--- NOTE | 2022-11-17 09:14 | PN.HOSP_ITS ---
Subjective Subjective Has had bowel movement today as well as passing flatus. She is feeling much better today Objective Data Objective Data Vital Signs: Vital Signs Temp Pulse Resp BP Pulse Ox O2 Del Method 98.5 F 68 16 150/65 H 96 Room Air 11/17/22 08:10 11/17/22 08:10 11/17/22 08:10 11/17/22 08:10 11/17/22 08:10 11/17/22 08:10 Oxygen Delivery Method Room Air Weight: 186 lb 8 oz Body Mass Index (BMI) 28.3 Intake & Output: Intake and Output for Last 24 Hours 11/16/22 11/17/22 11/18/22 03:59 03:59 03:59 Intake Total 1735 / 1735 2195.01 / 2195.01 1060 / 1060 Output Total 1100 / 1500 3300 / 3300 850 / 850 Balance 635 / 235 -1104.99 / -1104.99 210 / 210 Lab / Micro Data Result Diagrams: 11/17/22 05:00 11/17/22 05:00 Labs: Laboratory Results - last 24 hr 11/16/22 11:33: POC Glucose 123 H 11/16/22 16:42: POC Glucose 201 H 11/16/22 18:48: POC Glucose 197 H 11/16/22 20:35: POC Glucose 166 H 11/16/22 23:24: POC Glucose 145 H 11/17/22 05:00: WBC 12.2 H, RBC 3.96 L, Hgb 10.0 L, Hct 32.8 L, MCV 82.8, MCH 25.3 L, MCHC 30.5 L D, RDW Std Deviation 52.0 H, RDW Coeff of Emilio 17.0 H, Plt Count 359, MPV 9.2, Immature Gran % (Auto) 0.600, Neut % (Auto) 76.1 H, Lymph % (Auto) 12.7 L, [place] % (Auto) 9.2, Eos % (Auto) 1.0, Baso % (Auto) 0.4, Absolute Neuts (auto) 9.3 H, Absolute Lymphs (auto) 1.55, Nucleated RBC % 0 11/17/22 05:00: Sodium 140, Potassium 4.5, Chloride 105, Carbon Dioxide 28.0, Anion Gap 7, BUN 18, Creatinine 1.04 H, Estim Creat Clear Calc 56.58, Est GFR (MDRD) Af Amer 69, Est GFR (MDRD) Non-Af 57 L, BUN/Creatinine Ratio 17.3, Glucose 120 H, Calcium 9.0 11/17/22 06:10: POC Glucose 87 Physical Exam Narrative General: Alert, Oriented x3, Cooperative, No apparent distress HEENT: Atraumatic, PERRLA, EOMI, Normocephalic Oral: Moist Mucosa Neck: Supple, No JVD Lungs: Clear to auscultation, Normal air movement, No rhonchi, No wheeze, No rales Cardiovascular: Regular rate, Regular Rhythm, Normal S1, Normal S2, No murmurs Abdomen: Soft, nontender, Non-Distended, No Hepato-splenomegaly Extremities: No edema, Capillary Refill Less than 3 Seconds Skin: No rashes, No breakdown Musculoskeletal: No Tenderness to Palpation of Joints or Extremities Neurological: Cranial nerves II-XII grossly intact, Motor Exam 5/5 strength throughout, Sensory exam intact to light touch and pain Psych/Mental Status: Normal affect, Appropriate Assessment & Plan Assessment/Plan (1) Postoperative ileus: PLAN: Plan 1. Postoperative ileus ? Management per primary ? N.p.o. ? Leukocytosis is likely related to her recent surgery as well as extra doses of steroids that she got in the postoperative period, and it is improving ? May be able to pull the NG tube today since she is having return of bowel function 2. CAD status post stent/HTN/HLD ? Can hold blood pressure medications can be managed by IV if necessary ? She did have stents placed at an outside hospital last February, will need to start Plavix sooner rather than later 3. DM2 ? We will hold her oral medications ? We will place her on sliding scale insulin with Accu-Cheks every 6 hours ? We will monitor make adjustments as necessary given the fact she cannot eat but she will be on a low-dose steroid every day 4. Rheumatoid arthritis ? She is on 5 mg of prednisone daily given her recent stress it is beneficial to resume steroids ? We will place her on Solu-Medrol 20 mg IV daily, until she consistently consistently take p.o. then can be transitioned back to her 5 mg of prednisone 5. Hypothyroidism ? Stable ? Can hold her Synthroid as levels can be fairly steady for about a week 6. Anxiety/depression ? Stable ? Can resume her home medications when she can take p.o. DVT: SCDs Charges/Coding Visit Charges Inpatient E&M: 60719 Subs Hosp L2
[2022-11-17] MEDS: Aspirin E.C. 81 MG Tablet PO (10:24)
[2022-11-17] MEDS: Carvedilol 3.125 MG TABLET PO ×2 (10:25→21:26)
[2022-11-17] MEDS: Clopidogrel Bisulfate 75 MG Tablet PO (10:25)
[2022-11-17] MEDS: predniSONE 5 MG Tablet PO (10:34)
[2022-11-17 10:41] LABS: Bedside Glucose 121 mg/dL (74-106)
[2022-11-17] MEDS: amLODIPine 5 MG Tablet PO (11:36)
[2022-11-17 16:05] VITALS: BP 145/52; PULSE 79; RESP 16; TEMP 36.9; O2SAT 94
[2022-11-17 17:10] LABS: Bedside Glucose 136 mg/dL (74-106)
[2022-11-17] MEDS: Lisinopril 5 MG Tablet PO (21:26)
[2022-11-17] MEDS: Venlafaxine XR 150 MG Capsule PO (21:38)
[2022-11-17] MEDS: Venlafaxine HCl 75 MG Tablet PO (21:40)
[2022-11-17 22:00] VITALS: BP 127/54; PULSE 80; RESP 16; TEMP 36.7; O2SAT 93
[2022-11-17 22:50] LABS: Bedside Glucose 90 mg/dL (74-106)
[2022-11-18] MEDS: Dextrose 50%-Water 25 GM/50 ML DISP.SYRIN IV (01:50)
[2022-11-18 02:00] LABS: Bedside Glucose 71 mg/dL (74-106)
[2022-11-18 02:51] LABS: Bedside Glucose 115 mg/dL (74-106)
[2022-11-18 05:15] VITALS: BP 135/68; PULSE 84; RESP 16; TEMP 36.8; O2SAT 97
[2022-11-18] MEDS: Lactated Ringers 1,000 ML 70 ML IV (05:54)
[2022-11-18] MEDS: 0.9% Saline Lock 10 ML Syringe IV (05:55)
--- NOTE | 2022-11-18 06:32 | PCM.PN.SRG ---
Subjective Subjective Is making good progress. Although not much flatus she is passing liquid small amount of solid stool. She is not having much abdominal pain except in the left upper quadrant. No current nausea. No vomiting. She is hungry Objective Data Objective Data Vital Signs: Vital Signs Temp Pulse Resp BP Pulse Ox O2 Del Method 98.2 F 84 16 135/68 H 97 Room Air 11/18/22 05:15 11/18/22 05:15 11/18/22 05:15 11/18/22 05:15 11/18/22 05:15 11/18/22 05:15 Oxygen Delivery Method Room Air Weight: 186 lb 8 oz Body Mass Index (BMI) 28.3 Intake & Output: Intake and Output for Last 24 Hours 11/16/22 11/17/22 11/18/22 23:59 23:59 23:59 Intake Total 2165.01 / 2165.01 1915.67 / 1915.67 868 / 868 Output Total 2500 / 2500 2350 / 2950 600 / 600 Balance -334.99 / -334.99 -434.33 / -1034.33 268 / 268 Lab / Micro Data Result Diagrams: 11/17/22 05:00 11/17/22 05:00 Labs: Laboratory Results - last 24 hr 11/17/22 06:10: POC Glucose 87 11/17/22 10:20: POC Glucose 121 H 11/17/22 16:45: POC Glucose 136 H 11/17/22 21:18: POC Glucose 90 11/18/22 01:42: POC Glucose 71 L 11/18/22 02:31: POC Glucose 115 H Physical Exam GI GI Narrative: Soft, nontender, incisions remain clean Assessment & Plan Assessment/Plan (1) Postoperative ileus: PLAN: I will reinitiate clear liquids. We will reassess and advance as tolerated today. Hep-Lock IV fluids and try to convert back to oral medication
[2022-11-18 06:53] LABS: Anion Gap 8 (5-15); BUN 14 mg/dL (7-18); Chloride 106 mmol/L (98-107); Creatinine, Serum 1.08 mg/dL (0.55-1.02); EST Glomerular Filtration Rate 55 mL/min (>60); Est Glom Filt Rate - Afr Amer 66 mL/min (>60); Estimated Creatinine Clearance 54.48 ml/min; Glucose 107 mg/dL (74-106); Potassium 3.7 mmol/L (3.5-5.1); Sodium Level 141 mmol/L (136-145)
[2022-11-18] MEDS: Levothyroxine 88 MCG Tablet PO (06:58)
[2022-11-18 07:15] LABS: Bedside Glucose 110 mg/dL (74-106)
[2022-11-18] MEDS: Aspirin E.C. 81 MG Tablet PO (07:56)
[2022-11-18] MEDS: predniSONE 5 MG Tablet PO (07:56)
[2022-11-18 09:51] VITALS: BP 140/59; PULSE 78; RESP 16; TEMP 36.9; O2SAT 95
[2022-11-18] MEDS: Carvedilol 3.125 MG TABLET PO ×2 (09:56→21:30)
[2022-11-18] MEDS: Clopidogrel Bisulfate 75 MG Tablet PO (09:57)
[2022-11-18] MEDS: Pantoprazole Sodium 40 MG Tablet PO (10:05)
[2022-11-18] MEDS: Venlafaxine XR 150 MG Capsule PO (10:05)
[2022-11-18] MEDS: Insulin Lispro 100 UNIT/ML INSULN.PEN SC ×2 (11:30→17:14)
[2022-11-18 11:34] VITALS: BP 125/45
[2022-11-18 12:06] LABS: Bedside Glucose 264 mg/dL (74-106)
--- NOTE | 2022-11-18 12:51 | PN.HOSP_ITS ---
Subjective Subjective Patient seen and examined. SHe is worried she isnt passing gas.She is having bowel movements though. She denied any fever, chills, loss of diarrhea. She does admit to some mild left lower quadrant abdominal pain which she thinks is because she is not passing gas. Review of systems otherwise negative. Objective Data Objective Data Vital Signs: Vital Signs Temp Pulse Resp BP Pulse Ox O2 Del Method 98.4 F 78 16 125/45 H 95 Room Air 11/18/22 09:51 11/18/22 09:51 11/18/22 09:51 11/18/22 11:34 11/18/22 09:51 11/18/22 09:51 Oxygen Delivery Method Room Air Weight: 186 lb 8 oz Body Mass Index (BMI) 28.3 Intake & Output: Intake and Output for Last 24 Hours 11/16/22 11/17/22 11/18/22 23:59 23:59 23:59 Intake Total 2165.01 / 2165.01 1915.67 / 1915.67 1177.17 / 1177.17 Output Total 2500 / 2500 2350 / 2950 1400 / 1400 Balance -334.99 / -334.99 -434.33 / -1034.33 -222.83 / -222.83 Lab / Micro Data Result Diagrams: 11/17/22 05:00 11/18/22 05:30 Labs: Laboratory Results - last 24 hr 11/17/22 16:45: POC Glucose 136 H 11/17/22 21:18: POC Glucose 90 11/18/22 01:42: POC Glucose 71 L 11/18/22 02:31: POC Glucose 115 H 11/18/22 05:30: Sodium 141, Potassium 3.7, Chloride 106, Carbon Dioxide 27.0, Anion Gap 8, BUN 14, Creatinine 1.08 H, Estim Creat Clear Calc 54.48, Est GFR (MDRD) Af Amer 66, Est GFR (MDRD) Non-Af 55 L, BUN/Creatinine Ratio 13.0, Glucose 107 H, Calcium 9.0 11/18/22 06:08: POC Glucose 110 H 11/18/22 11:29: POC Glucose 264 H Physical Exam Const alert, oriented x3 and no apparent distress HEENT head/scalp atraumatic, moist oral mucous membranes and oropharynx normal Head and Scalp: normocephalic Mouth: oral and palatal mucosa normal Eyes PERRL, EOMs intact bilaterally and conjunctivae normal Neck no lymphadenopathy, supple and no JVD Resp normal respiratory effort, no retractions, no use of accessory muscles and clear to auscultation bilaterally Cardio regular rate, regular rhythm, S1 normal heart sound, S2 normal heart sound and no murmurs GI normal to inspection, nondistended, normoactive bowel sounds and soft to palpation GI Narrative: minimal tenderness with palpation. Intact dressing over laparotomy sites. Extremity normal to inspection, full ROM and no clubbing, cyanosis or edema Neuro oriented x3, CN's II-XII intact bilaterally, moves all extremities and no focal motor deficits Sensorium / Orientation: awake and alert Motor Exam: strength 5/5 throughout Psych affect normal Assessment & Plan Assessment/Plan (1) Postoperative ileus: PLAN: Plan #Post op ileus * is s/p hemicolectomy for colon cancer * was readmitted due to post op ileus. * NG tube removed. Having bowel movements, though she says she isnt passing gas * management as per general surgery * #CAD s/p stent: on plavix and apsirin as well as statin #Hypertension; on amlodipine, carvedilol and lisinopril #Hyperlipidemia: on statin #Type 2 diabetes mellitus * oral meds on hold as she was initially nPO * ISS. Accuchecks ACHS * resume oral meds when she is fully tolerating oral diet * #Rheumatoid arthritis: will resume oral prednisone and dc IV solumedrol #Hypothyroidism;on synthroid #Anxiety and depression; on venlafaxine DVT prophylaxis: SCDs Charges/Coding Visit Charges Inpatient E&M: 80372 Subs Hosp L2
--- NOTE | 2022-11-18 12:55 | NURSING ---
This RN is aware of Vital Signs and Assessment done by Ruthie HARPER.
[2022-11-18 15:32] VITALS: BP 138/52; PULSE 68; RESP 16; TEMP 36.9; O2SAT 99
[2022-11-18 16:56] LABS: Bedside Glucose 173 mg/dL (74-106)
[2022-11-18 21:00] VITALS: BP 147/48; PULSE 65; RESP 16; TEMP 36.9; O2SAT 97
[2022-11-18] MEDS: Menthol/Lanolin/Calamine/Znox 113 GM Tube 1 APPLIC TOPICAL (21:30)
[2022-11-18 23:50] LABS: Bedside Glucose 96 mg/dL (74-106)
[2022-11-19 03:00] VITALS: BP 142/61; PULSE 77; RESP 16; TEMP 36.7; O2SAT 100
[2022-11-19] MEDS: Levothyroxine 88 MCG Tablet PO (05:38)
--- NOTE | 2022-11-19 06:07 | PN.SURG_ITS ---
Subjective Subjective Patient continues to improve. Liquidy diarrhea. Some postprandial bloating. Mild persistent left upper quadrant pain. No nausea. Objective Data Objective Data Vital Signs: Vital Signs Temp Pulse Resp BP Pulse Ox O2 Del Method 98.1 F 77 16 142/61 H 100 Room Air 11/19/22 03:00 11/19/22 03:00 11/19/22 03:00 11/19/22 03:00 11/19/22 03:00 11/19/22 03:00 Oxygen Delivery Method Room Air Weight: 186 lb 8 oz Body Mass Index (BMI) 28.3 Intake & Output: Intake and Output for Last 24 Hours 11/17/22 11/18/22 11/19/22 23:59 23:59 23:59 Intake Total 1915.67 / 1915.67 2337.17 / 2337.17 500 / 500 Output Total 2350 / 2950 1800 / 1800 900 / 900 Balance -434.33 / -1034.33 537.17 / 537.17 -400 / -400 Lab / Micro Data Result Diagrams: 11/17/22 05:00 11/18/22 05:30 Labs: Laboratory Results - last 24 hr 11/18/22 05:30: Sodium 141, Potassium 3.7, Chloride 106, Carbon Dioxide 27.0, Anion Gap 8, BUN 14, Creatinine 1.08 H, Estim Creat Clear Calc 54.48, Est GFR (MDRD) Af Amer 66, Est GFR (MDRD) Non-Af 55 L, BUN/Creatinine Ratio 13.0, Glucose 107 H, Calcium 9.0 11/18/22 06:08: POC Glucose 110 H 11/18/22 11:29: POC Glucose 264 H 11/18/22 15:39: POC Glucose 173 H 11/18/22 23:29: POC Glucose 96 Physical Exam GI GI Narrative: Soft, mild tenderness left upper quadrant, bowel sounds present Assessment & Plan Assessment/Plan (1) Postoperative ileus: PLAN: Likely complication of Lomotil given on previous admission to slow profuse diarrhea. Patient is now making good progress. We will advance to a 1600- calorie ADA regular diet. If she tolerates this well then anticipate discharge later today. Golden Flood M.D., F.A.C.S.
[2022-11-19 06:10] LABS: Bedside Glucose 117 mg/dL (74-106)
[2022-11-19 08:00] VITALS: BP 134/48; PULSE 73; RESP 16; TEMP 37.2; O2SAT 98
[2022-11-19] MEDS: Clopidogrel Bisulfate 75 MG Tablet PO (09:13)
[2022-11-19] MEDS: Aspirin E.C. 81 MG Tablet PO (09:13)
[2022-11-19] MEDS: Venlafaxine XR 150 MG Capsule PO (09:13)
[2022-11-19] MEDS: Carvedilol 3.125 MG TABLET PO (09:13)
[2022-11-19] MEDS: Pantoprazole Sodium 40 MG Tablet PO (09:13)
[2022-11-19] MEDS: Venlafaxine HCl 75 MG Tablet PO (09:13)
[2022-11-19] MEDS: predniSONE 5 MG Tablet PO (09:14)
[2022-11-19] MEDS: Menthol/Lanolin/Calamine/Znox 113 GM Tube 1 APPLIC TOPICAL (09:16)
[2022-11-19 09:17] VITALS: BP 124/62; BP 135/58; PULSE 91
--- NOTE | 2022-11-19 10:52 | PN.HOSP_ITS ---
Subjective Subjective Patient seen and examined. She had no active complaitns. She is now passing gas and had a small bowel movement this morning. Review of systems is otherwise negative. Objective Data Objective Data Vital Signs: Vital Signs Temp Pulse Resp BP Pulse Ox O2 Del Method 98.9 F 91 16 135/58 H 98 Room Air 11/19/22 08:00 11/19/22 09:17 11/19/22 08:00 11/19/22 09:17 11/19/22 08:00 11/19/22 08:00 Oxygen Delivery Method Room Air Weight: 186 lb 8 oz Body Mass Index (BMI) 28.3 Intake & Output: Intake and Output for Last 24 Hours 11/17/22 11/18/22 11/19/22 23:59 23:59 23:59 Intake Total 1915.67 / 1915.67 2337.17 / 2337.17 500 / 500 Output Total 2350 / 2950 1800 / 1800 900 / 900 Balance -434.33 / -1034.33 537.17 / 537.17 -400 / -400 Lab / Micro Data Result Diagrams: 11/17/22 05:00 11/18/22 05:30 Labs: Laboratory Results - last 24 hr 11/18/22 11:29: POC Glucose 264 H 11/18/22 15:39: POC Glucose 173 H 11/18/22 23:29: POC Glucose 96 11/19/22 05:36: POC Glucose 117 H Physical Exam Const alert, oriented x3 and no apparent distress HEENT head/scalp atraumatic, moist oral mucous membranes and oropharynx normal Head and Scalp: normocephalic Mouth: oral and palatal mucosa normal Eyes PERRL, EOMs intact bilaterally and conjunctivae normal Neck no lymphadenopathy, supple and no JVD Resp normal respiratory effort, no retractions, no use of accessory muscles and clear to auscultation bilaterally Cardio regular rate, regular rhythm, S1 normal heart sound, S2 normal heart sound and no murmurs GI normal to inspection, nondistended, normoactive bowel sounds and soft to palpation GI Narrative: nontender. Intact dressing over laparotomy sites. Extremity normal to inspection, full ROM and no clubbing, cyanosis or edema Neuro oriented x3, CN's II-XII intact bilaterally, moves all extremities and no focal motor deficits Sensorium / Orientation: awake and alert Motor Exam: strength 5/5 throughout Psych affect normal Assessment & Plan Assessment/Plan (1) Postoperative ileus: PLAN: Plan #Post op ileus * is s/p hemicolectomy for colon cancer * was readmitted due to post op ileus. * NG tube removed. * now having bowel movements and passing gas * management as per general surgery * #CAD s/p stent: on plavix and apsirin as well as statin #Hypertension; * on amlodipine, carvedilol and lisinopril * diastolic BP has been in the 60s and 70s mainly, and only a few readings in the 50s and 40s systolic * patient counseled to be compliant with her BP meds, and to follow up with her PCP with records of her BP readings for her BP meds to be adjusted as needd. #Hyperlipidemia: on statin #Type 2 diabetes mellitus * now tolerating an oral diet. * ISS. Accuchecks ACHS * will resume oral meds * #Rheumatoid arthritis: on PO prednisone. #Hypothyroidism;on synthroid #Anxiety and depression; on venlafaxine DVT prophylaxis: SCDs Disposition: ok for dc home from hospitalist standpoint. Charges/Coding Visit Charges Inpatient E&M: 83485 Subs Hosp L2 Reason for Visit Reason for Visit: Diagnoses Ileus, unspecified (11/15/22) Other postprocedural complications and disorders of digestive system (11/15/22)
[2022-11-19] MEDS: Insulin Lispro 100 UNIT/ML INSULN.PEN SC (11:01)
[2022-11-19] MEDS: amLODIPine 5 MG Tablet PO (11:02)
[2022-11-19 11:08] VITALS: BP 130/50; PULSE 76; RESP 16; TEMP 36.9; O2SAT 95
[2022-11-19 11:20] LABS: Bedside Glucose 224 mg/dL (74-106)
--- NOTE | 2022-11-19 11:59 | DCINST_ITS ---
Discharge Instructions Diet Discharge Diet: Light diet - advance as tolerated Activity Discharge Activity: May Not Drive (for 3-5 days or while taking narcotic medication) May shower in (days): 0 Lifting Restrictions: 10 pounds Dressing / Incision Call your doctor if your incision/area has: Continuous Slow Oozing, Sudden Increased Bleeding, Increased Pain/ Swelling, Increased Redness and Foul Smelling Discharge Call your doctor if you observe: Fever of 101 or Higher Suture Line Care: Avoid Pulling/Pushing and Avoid Pinching/Bending Additional Dressing/Incision Instructions:: Remove steri-strips in 2 days Follow Up Care Please Follow Up With: Golden Flood MD When: In 1 week Test Results: Test results from this visit will be discussed in further detail at your follow- up appointment, if applicable. Discharge Plan Admission Admit Date/Time: 11/15/22 11:59 Primary Reason for Your Visit: Postoperative ileus Attending Provider: Golden Flood Primary Care Provider: Kimi López Consulting Providers: Lamar De Souza Instructions Additional Instructions / Restrictions: You may take Tylenol 650 mg every 8 hours as needed for pain Recommend heating pad as needed for discomfort Discharge Orders/Prescriptions Prescriptions: Continued amlodipine 5 mg tablet 5 mg PO LUNCH aspirin [Adult Aspirin Regimen] 81 mg tablet,delayed release (DR/EC) 81 mg PO DAILY famotidine 40 mg tablet 40 mg PO QHS nystatin [Nystop] 100,000 unit/gram powder 100,000 gm topical PRN PRN (Reason: Skin Cleansing) Label Comments: APPLY TOPICALLY EVERY 8 HOURS ibuprofen 800 mg tablet 800 mg PO Q6H PRN PRN (Reason: Pain) Label Comments: TAKE 1 TABLET BY MOUTH TWICE DAILY NEEDED FOR MILD PAIN [id number] [id number] mg capsule 1 cap PO Q4H PRN (Reason: Pain) valacyclovir [Valtrex] 1 gram tablet 1,000 mg PO DAILY PRN (Reason: outbreak) hyoscyamine sulfate 0.125 mg tablet 0.125 mg PO BID-QID PRN (Reason: Cough) biotin 5,000 mcg tablet,disintegrating 10,000 mcg PO DAILY vitamin B complex [B Complex-Vitamin B12] Tablet 1 tab PO DAILY lisinopril 5 mg tablet 5 mg PO QHS venlafaxine 75 mg tablet 75 mg PO DAILY glipizide 10 mg tablet extended release 24hr 10 mg PO BID prednisone 5 mg tablet 5 mg PO DAILY venlafaxine [Effexor XR] 150 mg capsule,extended release 24hr 150 mg PO DAILY clopidogrel 75 mg tablet 75 mg PO DAILY carvedilol 3.125 mg tablet 3.125 mg PO BID levothyroxine [Euthyrox] 88 mcg tablet 88 mcg PO DAILY rosuvastatin [Crestor] 10 mg Tablet 10 mg PO QHS ondansetron HCl 8 mg tablet 8 mg PO Q6H hydroxychloroquine 200 mg tablet 200 mg PO BID Qty: 60 0RF Discontinued hydrocodone-acetaminophen 5-325 mg tablet 1 tab PO Q6H PRN (Reason: pain) 3 Days Qty: 10 0RF Referrals / Follow Up: Kimi López MD [Primary Care Provider] - Disposition Disposition (needs filled in before D/C Order can be placed): Home, Self Care
--- NOTE | 2022-11-19 12:12 | CASEMGMT ---
RN JOSE NOTE: Pt being discharged home. RN CM to room. Questions answered. Pt voices understanding. Pt denies having any discharge planning needs. [place] BSN RN CM
--- NOTE | 2022-11-19 12:48 | DS.PCM_ITS ---
Providers Date of Admission: 11/15/22 Date of Discharge: 11/19/22 Primary Care Physician: Dr. Kimi López MD Consultations 11/15/22 13:09 Consult: Hospitalist Routine Consulting Provider: Constantine Fuchs Reason for Consult: medical care s/p colectomy EMERGENT Consult: No MD Notified: Yes Date Notified: 11/15/22 Time Notified: 12:06 Method of Notification: Verbal Reason For Visit: POST OP ILEUS Diagnosis Discharge Diagnosis (1) Postoperative ileus: Status: Acute Code(s): K91.89 - Other postprocedural complications and disorders of digestive system; K56.7 - Ileus, unspecified Medications at Discharge Home Medications amlodipine 5 mg tablet 5 mg PO LUNCH BP 04/02/22 aspirin 81 mg tablet,delayed release (Adult Aspirin Regimen) 81 mg PO DAILY HEART 04/02/22 famotidine 40 mg tablet 40 mg PO QHS GERD 04/02/22 ibuprofen 800 mg tablet 800 mg PO Q6H PRN PRN Pain 04/02/22 nystatin 100,000 unit/gram topical powder (Nystop) 100,000 gm topical PRN PRN Skin Cleansing 04/02/22 biotin 5,000 mcg disintegrating tablet 10,000 mcg PO DAILY SUPPLEMENT 08/26/22 butalbital 50 mg-acetaminophen 325 mg-caffeine 40 mg-codeine 30 mg cap 1 cap PO Q4H PRN Pain 08/26/22 hyoscyamine sulfate 0.125 mg tablet 0.125 mg PO BID-QID PRN Cough 08/26/22 valacyclovir 1 gram tablet (Valtrex) 1,000 mg PO DAILY PRN outbreak 08/26/22 vitamin B complex (B Complex-Vitamin B12 tablet) 1 tab PO DAILY SUPPLEMENT 08/26/22 lisinopril 5 mg tablet 5 mg PO QHS BP 10/31/22 carvedilol 3.125 mg tablet 3.125 mg PO BID BP/HEART 11/05/22 clopidogrel 75 mg tablet 75 mg PO DAILY BLOOD THINNER 11/05/22 glipizide 10 mg tablet, extended release 24 hr 10 mg PO BID DIABETIC 11/05/22 levothyroxine 88 mcg tablet (Euthyrox) 88 mcg PO DAILY THYROID 11/05/22 prednisone 5 mg tablet 5 mg PO DAILY RA 11/05/22 rosuvastatin 10 mg tablet (Crestor) 10 mg PO QHS CHOLESTEROL 11/05/22 venlafaxine 150 mg capsule,extended release 24 hr (Effexor XR) 150 mg PO DAILY DEPRESSION 11/05/22 venlafaxine 75 mg tablet 75 mg PO DAILY DEPRESSION 11/05/22 hydroxychloroquine 200 mg tablet 200 mg PO BID RA #60 tabs 11/06/22 ondansetron HCl 8 mg tablet 8 mg PO Q6H 11/15/22 Hospital Course Operations None Summary of Care Provided Minutes Spent on Discharge: 25 Hospital Course: Patient was readmitted for postoperative ileus. Patient was discharged on 11/14/22 s/p elective laparoscopic right hemicolectomy for colon cancer. Dr. Flood per formed a Laparoscopic lysis of adhesions, Laparoscopic right colectomy, and Laparoscopic bilateral transverses abdominis plane block on 11/11/22. Patient returned to the ED on 11/15 with abdominal pain, nausea, vomiting. CT scan of the abdomen/pelvis was completed and demonstrated fluid-filled distended small bowel loops down to the anastomotic site, consistent with an ileus. No evidence of an anastomotic leak noted. Patient was admitted. Hospitalist were consulted to assist with patient's diabetes. Conservative measures were taken with bowel rest and IV hydration. Patient had nausea and vomiting overnight on 11/15. She had an NG tube placed 11/16. On 11/17, NG tube was removed as patient was passing a small amount of flatus and having liquidy stools. Patient was placed on clear liquids on 11/18. Patient although not much of an appetite, tolerated clear liquids. Patient was advanced to full liquids yesterday without any concerns. Upon discharge, patient was tolerating a regular diet. Patient denies nausea, vomiting, abdominal bloating. Patient notes positive flatus and liquidy stools. She feels comfortable going home. Patient will be discharged to home. She will follow-up with our office next week. Weight / BMI Weight Weight: 186 lb 8 oz Body Mass Index (BMI) 28.3 ABG / Lab / Microbiology Data Result Diagrams: 11/17/22 05:00 11/18/22 05:30 Laboratory: Laboratory Results - last 24 hr 11/18/22 15:39: POC Glucose 173 H 11/18/22 23:29: POC Glucose 96 02/07/23 05:36: POC Glucose 117 H 11/19/22 11:00: POC Glucose 224 H D/C Instructions Discharge Diet: Light diet - advance as tolerated May shower in (days): 0 Call your doctor if your incision/area has: Continuous Slow Oozing, Sudden Increased Bleeding, Increased Pain/ Swelling, Increased Redness and Foul Smelling Discharge Call your doctor if you observe: Fever of 101 or Higher Suture Line Care: Avoid Pulling/Pushing and Avoid Pinching/Bending Additional Dressing/Incision Instructions: Remove steri-strips in 2 days Please Follow Up With: Golden Flood MD When: In 1 week Meaningful Use Info Meaningful Use Diagnoses (Choose all that apply): None applicable Discharge Plan Admission Admit Date/Time: 11/15/22 11:59 Primary Reason for Your Visit: Postoperative ileus Attending Provider: Golden Flood Primary Care Provider: Kimi López Consulting Providers: Lamar De Souza Instructions Additional Instructions / Restrictions: You may take Tylenol 650 mg every 8 hours as needed for pain Recommend heating pad as needed for discomfort Discharge Orders/Prescriptions Prescriptions: Continued amlodipine 5 mg tablet 5 mg PO LUNCH aspirin [Adult Aspirin Regimen] 81 mg tablet,delayed release (DR/EC) 81 mg PO DAILY famotidine 40 mg tablet 40 mg PO QHS nystatin [Nystop] 100,000 unit/gram powder 100,000 gm topical PRN PRN (Reason: Skin Cleansing) Label Comments: APPLY TOPICALLY EVERY 8 HOURS ibuprofen 800 mg tablet 800 mg PO Q6H PRN PRN (Reason: Pain) Label Comments: TAKE 1 TABLET BY MOUTH TWICE DAILY NEEDED FOR MILD PAIN [id number] [id number] mg capsule 1 cap PO Q4H PRN (Reason: Pain) valacyclovir [Valtrex] 1 gram tablet 1,000 mg PO DAILY PRN (Reason: outbreak) hyoscyamine sulfate 0.125 mg tablet 0.125 mg PO BID-QID PRN (Reason: Cough) biotin 5,000 mcg tablet,disintegrating 10,000 mcg PO DAILY vitamin B complex [B Complex-Vitamin B12] Tablet 1 tab PO DAILY lisinopril 5 mg tablet 5 mg PO QHS venlafaxine 75 mg tablet 75 mg PO DAILY glipizide 10 mg tablet extended release 24hr 10 mg PO BID prednisone 5 mg tablet 5 mg PO DAILY venlafaxine [Effexor XR] 150 mg capsule,extended release 24hr 150 mg PO DAILY clopidogrel 75 mg tablet 75 mg PO DAILY carvedilol 3.125 mg tablet 3.125 mg PO BID levothyroxine [Euthyrox] 88 mcg tablet 88 mcg PO DAILY rosuvastatin [Crestor] 10 mg Tablet 10 mg PO QHS ondansetron HCl 8 mg tablet 8 mg PO Q6H hydroxychloroquine 200 mg tablet 200 mg PO BID Qty: 60 0RF Discontinued hydrocodone-acetaminophen 5-325 mg tablet 1 tab PO Q6H PRN (Reason: pain) 3 Days Qty: 10 0RF Referrals / Follow Up: Kimi López MD [Primary Care Provider] - Disposition Disposition (needs filled in before D/C Order can be placed): Home, Self Care Charges/Coding Visit Charges Inpatient E&M: 92008 Disch Hosp (Post-op)
== END 2022-11-19 12:48 | disposition home or self-care (01) | DRG 252 ==
LOC: ED 09:30 → MS3 12:04
PROVIDERS: Family Medicine; Admitting Provider Surgery; Emergency Provider Emergency Medicine; PCP Internal Medicine; Visit Provider Surgery
DX: K91.89 Other postprocedural complications and disorders of digestive system (principal); K56.7 Ileus, unspecified; C18.9 Malignant neoplasm of colon, unspecified; E11.40 Type 2 diabetes mellitus with diabetic neuropathy, unspecified; M06.9 Rheumatoid arthritis, unspecified; E03.9 Hypothyroidism, unspecified; I25.10 Atherosclerotic heart disease of native coronary artery without angina pectoris; M79.7 Fibromyalgia; E78.5 Hyperlipidemia, unspecified; I10 Essential (primary) hypertension; Z79.02 Long term (current) use of antithrombotics/antiplatelets; Z79.2 Long term (current) use of antibiotics; Z79.52 Long term (current) use of systemic steroids; Z79.84 Long term (current) use of oral hypoglycemic drugs; Z87.891 Personal history of nicotine dependence; F32.A Depression, unspecified; Y83.8 Other surgical procedures as the cause of abnormal reaction of the patient, or of later complication, without mention of misadventure at the time of the procedure
CPT/HCPCS: 36415; 74018; 74176; 80048; 80076; 82962; 85025; 94668; 99252; 99285; J7120; A4216; G0463; J2405

== ENCOUNTER 2022-11-23 09:37 | Inpatient (IN) | payer MEDICAID, SELFPAY ==
[2022-11-23 09:39] VITALS: BP 135/55; PULSE 79; RESP 16; TEMP 36.2; O2SAT 100; BMI 27.0
--- NOTE | 2022-11-23 09:51 | EKG12_ITS ---
Test Reason : GI BLEED Blood Pressure : / mmHG Vent. Rate : 070 BPM Atrial Rate : 070 BPM P-R Int : 220 ms QRS Dur : 128 ms QT Int : 414 ms P-R-T Axes : 054 -54 008 degrees QTc Int : 447 ms Sinus rhythm with 1st degree A-V block Left axis deviation Right bundle branch block Minimal voltage criteria for LVH, may be normal variant ( R in aVL ) Possible Lateral infarct , age undetermined Inferior infarct , age undetermined Abnormal ECG Confirmed by RE JACOB, CHARLINE ([id number]), editor newspaper OWEN PÉREZ ([id number]) on 11/25/2022 12:27:26 PM Referred By: Confirmed By:CHARLINE GRIMALDO MD
[2022-11-23 10:13] LABS: Absolute Neutrophil Count 11.8 X10^3/uL (2.0-7.7); Basophil# 0.12 X10^3/uL; Basophil% 0.9 % (0-1); Eosinophil# 0.17 X10^3/uL; Eosinophils% 1.2 % (0-5); Hematocrit 30.8 % (37-47); Lymphocyte % 9.3 % (19-41); Mean Corp Hgb Conc 29.2 g/dL (32-36); Mean Corpuscular Hgb 24.6 pg (27.0-32.0); Mean Corpuscular Volume 84.2 fL (81-99); Mean Platelet Vol. 9.8 fl (6.2-12.0); Monocyte# 0.54 X10^3/uL; Monocyte% 3.8 % (0-10); NRBC Flagged by Analyzer 0 % (0-5); Neutrophil # 11.79 X10^3/uL (2.7-7.7); Platelet Count 439 K/mm3 (150-450); RBC Distribution Width CV 17.1 % (11.6-14.6); RBC Distribution Width SD 52.6 fl (35.1-43.9); Red Blood Count 3.66 M/mm3 (4.2-5.4)
[2022-11-23 10:23] LABS: Anion Gap 7 (5-15); BUN 17 mg/dL (7-18); Calcium,Total 9.1 mg/dL (8.5-10.1); Chloride 111 mmol/L (98-107); EST Glomerular Filtration Rate 68 mL/min (>60); Est Glom Filt Rate - Afr Amer 82 mL/min (>60); Estimated Creatinine Clearance 65.38 ml/min; Glucose 159 mg/dL (74-106); Potassium 4.1 mmol/L (3.5-5.1); Sodium Level 144 mmol/L (136-145)
--- NOTE | 2022-11-23 11:15 | EDS_ITS ---
HPI History of Present Illness Chief Complaint: GI Bleed Detail of Chief Complaint: Blood per rectum Informant: patient and family Onset/Context/Timing Onset: Days Context: Sudden Onset Timing: Intermittent Quality: Today more significant Location: GI Current Severity: Moderate Maximum Severity: Moderate Worsened by: Reddish-brown stool with minimal clots Relieved by: Nothing Associated Symptoms Associated Symptoms: Mild lightheadedness Narrative Narrative: Patient is a 62-year-old woman who underwent EGD and colonoscopy by Dr. Golden Flood on November 01. 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 There was no mention of internal hemorrhoids. She underwent surgery on the . She did have postoperative anemia. Patient was discharged home. She returned because of ileus that was treated with NG. Patient presents today because of blood per rectum. She does give orthostatic dizzy symptoms. She denies nausea or vomiting. She denies hematemesis. She denies bruising easily. She took her last dose of Plavix and aspirin yesterday. She denies bleeding of her gums. She denies bruising easily. She denies blood in her urine. Prior similar symptoms: No Recent Illness/Hospitalization: Yes [facility] Medical History Acid reflux Anemia Anxiety Breast cyst Cancer Cardiology follow-up encounter Carpal tunnel syndrome Diabetes Dietary restriction Erythromelalgia Fibromyalgia Foot fracture, left Foot fracture, right Former smoker Gastric reflux Gastroenteritis Hepatitis History of chronic kidney disease History of diabetes mellitus History of echocardiogram History of heart attack History of renal disease History of steroid therapy Hypertension Infectious mononucleosis Injury of head and neck Leg cramps Low iron Measles Migraines Neuropathy Osteopenia Post-menopausal Rheumatoid arthritis Seasonal allergies Shingles Shortness of breath on exertion Small fiber neuropathy Thyroid disease UTI (urinary tract infection) Home Medications amlodipine 5 mg tablet 5 mg PO LUNCH BP 04/02/22 [History Last Taken 11/22/22] aspirin 81 mg tablet,delayed release (Adult Aspirin Regimen) 81 mg PO DAILY HEART 04/02/22 [History Last Taken 11/22/22] famotidine 40 mg tablet 40 mg PO QHS GERD 04/02/22 [History Last Taken 11/22/22] ibuprofen 800 mg tablet 800 mg PO Q6H PRN PRN Pain 04/02/22 [History Last Taken 11/15/22] nystatin 100,000 unit/gram topical powder (Nystop) 100,000 gm topical PRN PRN Skin Cleansing 04/02/22 [History Last Taken Unknown] biotin 5,000 mcg disintegrating tablet 10,000 mcg PO DAILY SUPPLEMENT 08/26/22 [History Last Taken 11/22/22] butalbital 50 mg-acetaminophen 325 mg-caffeine 40 mg-codeine 30 mg cap 1 cap PO Q4H PRN Pain 08/26/22 [History Last Taken 1 Week Ago ~11/08/22] hyoscyamine sulfate 0.125 mg tablet 0.125 mg PO BID-QID PRN Cough 08/26/22 [History Last Taken Unknown] valacyclovir 1 gram tablet (Valtrex) 1,000 mg PO DAILY PRN outbreak 08/26/22 [History Last Taken Unknown] vitamin B complex (B Complex-Vitamin B12 tablet) 1 tab PO DAILY SUPPLEMENT 08/26/22 [History Last Taken 11/22/22] lisinopril 5 mg tablet 5 mg PO QHS BP 10/31/22 [History Last Taken 11/22/22] carvedilol 3.125 mg tablet 3.125 mg PO BID BP/HEART 11/05/22 [History Last Taken 11/22/22] clopidogrel 75 mg tablet 75 mg PO DAILY BLOOD THINNER 11/05/22 [History Last Taken 11/22/22] glipizide 10 mg tablet, extended release 24 hr 10 mg PO BID DIABETIC 11/05/22 [History Last Taken 11/22/22] levothyroxine 88 mcg tablet (Euthyrox) 88 mcg PO DAILY THYROID 11/05/22 [History Last Taken 11/23/22] prednisone 5 mg tablet 5 mg PO DAILY RA 11/05/22 [History Last Taken 11/23/22] rosuvastatin 10 mg tablet (Crestor) 10 mg PO QHS CHOLESTEROL 11/05/22 [History Last Taken 11/22/22] venlafaxine 150 mg capsule,extended release 24 hr (Effexor XR) 150 mg PO DAILY DEPRESSION 11/05/22 [History Last Taken 11/22/22] venlafaxine 75 mg tablet 75 mg PO DAILY DEPRESSION 11/05/22 [History Last Taken 11/22/22] hydroxychloroquine 200 mg tablet 200 mg PO BID RA #60 tabs 11/06/22 [Rx Last Taken 11/22/22] ondansetron HCl 8 mg tablet 8 mg PO Q6H 11/15/22 [History Last Taken 11/15/22] Allergy/AdvReac Type Severity Reaction Status Date / Time Iodinated Contrast Media Allergy Intermediate Hives Verified 11/23/22 09:38 [IVP dye] Seasonal Allergies: Uncoded Allergy Mild Hives Verified 11/23/22 09:38 levofloxacin [From Levaquin] Allergy PT UNSURE Verified 11/23/22 09:38 OF REACTION liraglutide [From Victoza] Allergy dehydration Verified 11/23/22 09:38 - ended up in hospital Sulfa (Sulfonamide Allergy pt states Verified 11/23/22 09:38 Antibiotics) has [sulfa drugs] tolerated some acetaminophen [From Percocet] AdvReac Itching Verified 11/23/22 09:38 adhesive AdvReac Rash Verified 11/23/22 09:38 hydrochlorothiazide AdvReac pt can tke Verified 11/23/22 09:38 tablet, but not capsule hydrocodone AdvReac Itching Verified 11/23/22 09:38 oxycodone [From Percocet] AdvReac Itching Verified 11/23/22 09:38 Family History Grandfather Cancer Heart disease Father Cancer Heart disease Diabetes Uncle Cancer Aunt Cancer Brother Heart disease Surgical History H/O heart artery stent History of lumbar laminectomy Hx of appendectomy Hx of cholecystectomy Hx of colonoscopy Hx of fusion of cervical spine Hx of release of tendon Hx of tonsillectomy Social History Smoking Status: Former smoker alcohol intake: never substance use type: does not use caffeine: Yes Type: carbonated beverages and tea what type of physical activity do you participate in: none seatbelt use: always do you feel safe at home: Yes ROS ROS ED Constitutional Constitutional ED: Denies chills, fever(s), subjective, sweats or weight loss Eyes Eyes: Denies blurry vision, change in vision or diplopia ENT ENT ED: Denies ear pain, rhinorrhea or sore throat Cardiovascular Cardiovascular: Denies chest pain, orthopnea, palpitations, paroxysmal nocturnal dyspnea or racing heartbeat Respiratory/Chest Respiratory/Chest: Denies cough, dyspnea, dyspnea on exertion, orthopnea or paroxysmal nocturnal dyspnea Gastrointestinal Gastrointestinal: Reports melena; Denies abdominal pain, constipation, diarrhea, nausea or vomiting Genitourinary Genitourinary ED: Denies dysuria, hematuria or urinary frequency Musculoskeletal Musculoskeletal: Denies arthralgias, back pain or myalgias Neurologic Neurologic: Denies headache(s) or weakness Psychiatric Psychiatric: Denies anxiety or depression Endocrine Endocrinology: Denies cold intolerance or heat intolerance Hematologic/Lymphatic Hematologic/Lymphatic: Reports anemia, easy bleeding and easy bruising EXAM Physical Exam Const Vital Signs: 11/23/22 09:39 Temperature 97.2 F L Temperature Source Temporal Pulse Rate 79 Respiratory Rate 16 Blood Pressure 135/55 H Blood Pressure Mean 81 Pulse Ox 100 Oxygen Delivery Method Room Air Positive well nourished and well developed General Appearance ED: well developed, NAD and pallor; Negative for cyanotic or diaphoretic HEENT Reports moist mucous membranes HEENT Narrative: Head is atraumatic normocephalic. Ears normal. Nares patent. Uvula midline. No deviation of tongue with protrusion Eyes PERRL and EOMs intact bilaterally General Eye ED: Yes pale conjunctiva; Negative for scleral icterus Neck no lymphadenopathy, supple and no JVD Chest Wall inspection of chest normal Resp normal respiratory effort and clear to auscultation bilaterally Effort and Inspection: retractions and pain with movement Cardio regular rate, regular rhythm, S1 normal heart sound, S2 normal heart sound and no murmurs GI non-tender, non-distended and no masses; Negative for hepatosplenomegaly Auscultation: hyperactive bowel sounds Palpation: soft Back/Spine no CVA tenderness Thoracic Spine / Upper Back: Negative for thoracic spinal tenderness Lumbar Spine / Lower Back: Negative for lumbar spinal tenderness Extremity normal to inspection Neuro oriented x3, CN's II-XII intact bilaterally and no sensory deficits noted Sensorium / Orientation: alert Psych mental status grossly normal Skin no rashes or lesions noted, no wounds and No skin turgor normal General Skin Exam: elasticity normal and pallor; Negative for jaundice MDM MDM MDM Narrative Medical decision making narrative: [place] patient is anemic. Rectal exam reveals red dark brown stool. There is no visible hemorrhoids. There is no fissures or fistulas noted. Suspect this may be anastomosis bleed or diverticular bleed. Per Dr. Candelaria's note there was no evidence of external or internal hemorrhoids on colonoscopy. Blood work was obtained assess H&H and platelet count. BMP was obtained to assess BUN/creatinine ratio. Lactate because of her complaint of orthostatic dizzy times. She was to green. Since there is no vomiting NG was not placed. EKG was obtained to rule out cardiac ischemia. Case was discussed with Dr. Vasquez. I was informed by Dr. Reece that she spoke with Dr. Suarez. Dr. Reece was made aware of patient. She is to be admitted to PCU. He was informed that she was typed and screened but not typed and crossed. She does have a 1 g drop in her hemoglobin from prior. Lab Data Labs: Laboratory Results - last 24 hr 11/23/22 11/23/22 11/23/22 10:00 10:00 10:00 WBC 14.0 H RBC 3.66 L Hgb 9.0 L Hct 30.8 L MCV 84.2 MCH 24.6 L MCHC 29.2 L RDW Std Deviation 52.6 H RDW Coeff of Emilio 17.1 H Plt Count 439 MPV 9.8 Immature Gran % (Auto) 0.800 Neut % (Auto) 84.0 H Lymph % (Auto) 9.3 L [facility] % (Auto) 3.8 Eos % (Auto) 1.2 Baso % (Auto) 0.9 Absolute Neuts (auto) 11.8 H Absolute Lymphs (auto) 1.30 Nucleated RBC % 0 Sodium 144 Potassium 4.1 Chloride 111 H Carbon Dioxide 26.0 Anion Gap 7 BUN 17 Creatinine 0.90 Estim Creat Clear Calc 65.38 Est GFR (MDRD) Af Amer 82 Est GFR (MDRD) Non-Af 68 BUN/Creatinine Ratio 19.0 Glucose 159 H Lactic Acid 1.0 Calcium 9.1 Blood Type Antibody Screen 11/23/22 10:00 WBC RBC Hgb Hct MCV MCH MCHC RDW Std Deviation RDW Coeff of Emilio Plt Count MPV Immature Gran % (Auto) Neut % (Auto) Lymph % (Auto) [facility] % (Auto) Eos % (Auto) Baso % (Auto) Absolute Neuts (auto) Absolute Lymphs (auto) Nucleated RBC % Sodium Potassium Chloride Carbon Dioxide Anion Gap BUN Creatinine Estim Creat Clear Calc Est GFR (MDRD) Af Amer Est GFR (MDRD) Non-Af BUN/Creatinine Ratio Glucose Lactic Acid Calcium Blood Type A NEGATIVE Antibody Screen NEGATIVE EKG Initial EKG: Attestation: I personally reviewed and interpreted this EKG as follows: Interpretation: Sinus Rhythm (Rate is 70. There is evidence of a first- degree AV block with a FL interval of 220. QRS duration is prolonged at 128 and has configuration of a right bundle branch block. QT interval is 414 ms. Tererro is to the left. There is evidence of LVH. There may be in a left anterior fascicular block as w) Discharge Plan Triage Chief Complaint: GI Bleed ED Provider: Enrique Mendenhall Dx/Rx/DC Orders Clinical Impression: Acute lower gastrointestinal bleeding, Type 2 diabetes mellitus, Rheumatoid arthritis, Status post right hemicolectomy, Orthostatic dizziness, Anemia due to blood loss Prescriptions: No Action amlodipine 5 mg tablet 5 mg PO LUNCH aspirin [Adult Aspirin Regimen] 81 mg tablet,delayed release (DR/EC) 81 mg PO DAILY famotidine 40 mg tablet 40 mg PO QHS nystatin [Nystop] 100,000 unit/gram powder 100,000 gm topical PRN PRN (Reason: Skin Cleansing) Label Comments: APPLY TOPICALLY EVERY 8 HOURS ibuprofen 800 mg tablet 800 mg PO Q6H PRN PRN (Reason: Pain) Label Comments: TAKE 1 TABLET BY MOUTH TWICE DAILY NEEDED FOR MILD PAIN [id number] mg capsule 1 cap PO Q4H PRN (Reason: Pain) valacyclovir [Valtrex] 1 gram tablet 1,000 mg PO DAILY PRN (Reason: outbreak) hyoscyamine sulfate 0.125 mg tablet 0.125 mg PO BID-QID PRN (Reason: Cough) biotin 5,000 mcg tablet,disintegrating 10,000 mcg PO DAILY vitamin B complex [B Complex-Vitamin B12] Tablet 1 tab PO DAILY lisinopril 5 mg tablet 5 mg PO QHS venlafaxine 75 mg tablet 75 mg PO DAILY glipizide 10 mg tablet extended release 24hr 10 mg PO BID prednisone 5 mg tablet 5 mg PO DAILY venlafaxine [Effexor XR] 150 mg capsule,extended release 24hr 150 mg PO DAILY clopidogrel 75 mg tablet 75 mg PO DAILY carvedilol 3.125 mg tablet 3.125 mg PO BID levothyroxine [Euthyrox] 88 mcg tablet 88 mcg PO DAILY rosuvastatin [Crestor] 10 mg Tablet 10 mg PO QHS ondansetron HCl 8 mg tablet 8 mg PO Q6H hydroxychloroquine 200 mg tablet 200 mg PO BID Qty: 60 0RF Primary Care Provider: Kimi López Referrals: Kimi López MD [Primary Care Provider] - Disposition Disposition: Acute Care Hospital [facility]
--- NOTE | 2022-11-23 11:30 | HP.PCM.HOS_ITS ---
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 As per patient and her mother near the bedside, she had bright red blood, liquid in consistency with no clots. She denies abdominal pain. She is passing flatus. She recently had postoperative ileus and was admitted on 11/15 and discharged on 11/19 by general surgery. Patient denies dizziness, lightheadedness or fall. She has history of coronary artery disease and 3 stents but denies chest pain pressure tightness or recent shortness of breath. She has chronic shortness of breath on exertion. In ED, vitals were noticed in normal range. Hemoglobin and hematocrit 9/30.8%, platelet count 1 39,000. Mild leukocytosis 14,000. Electrolytes in normal range. Glucose 159. Lactic acid 1.0. She has group and type immunity, blood group A negative. Twelve-lead EKG shows sinus rhythm, LAD, LAFB, RBBB, minimal LVH with first AV block at 70 bpm. QT420 ms. GI is consulted. [facility] Medical History Acid reflux Anemia Anxiety Breast cyst Cancer Cardiology follow-up encounter Carpal tunnel syndrome Diabetes Dietary restriction Erythromelalgia Fibromyalgia Foot fracture, left Foot fracture, right Former smoker Gastric reflux Gastroenteritis Hepatitis History of chronic kidney disease History of diabetes mellitus History of echocardiogram History of heart attack History of renal disease History of steroid therapy Hypertension Infectious mononucleosis Injury of head and neck Leg cramps Low iron Measles Migraines Neuropathy Osteopenia Post-menopausal Rheumatoid arthritis Seasonal allergies Shingles Shortness of breath on exertion Small fiber neuropathy Thyroid disease UTI (urinary tract infection) Home Medications amlodipine 5 mg tablet 5 mg PO LUNCH BP 04/02/22 [History Last Taken 11/22/22] aspirin 81 mg tablet,delayed release (Adult Aspirin Regimen) 81 mg PO DAILY HEART 04/02/22 [History Last Taken 11/22/22] famotidine 40 mg tablet 40 mg PO QHS GERD 04/02/22 [History Last Taken 11/22/22] ibuprofen 800 mg tablet 800 mg PO Q6H PRN PRN Pain 04/02/22 [History Last Taken 11/15/22] nystatin 100,000 unit/gram topical powder (Nystop) 100,000 gm topical PRN PRN Skin Cleansing 04/02/22 [History Last Taken Unknown] biotin 5,000 mcg disintegrating tablet 10,000 mcg PO DAILY SUPPLEMENT 08/26/22 [History Last Taken 11/22/22] butalbital 50 mg-acetaminophen 325 mg-caffeine 40 mg-codeine 30 mg cap 1 cap PO Q4H PRN Pain 08/26/22 [History Last Taken 1 Week Ago ~11/08/22] hyoscyamine sulfate 0.125 mg tablet 0.125 mg PO BID-QID PRN Cough 08/26/22 [History Last Taken Unknown] valacyclovir 1 gram tablet (Valtrex) 1,000 mg PO DAILY PRN outbreak 08/26/22 [History Last Taken Unknown] vitamin B complex (B Complex-Vitamin B12 tablet) 1 tab PO DAILY SUPPLEMENT 08/26/22 [History Last Taken 11/22/22] lisinopril 5 mg tablet 5 mg PO QHS BP 10/31/22 [History Last Taken 11/22/22] carvedilol 3.125 mg tablet 3.125 mg PO BID BP/HEART 11/05/22 [History Last Taken 11/22/22] clopidogrel 75 mg tablet 75 mg PO DAILY BLOOD THINNER 11/05/22 [History Last Taken 11/22/22] glipizide 10 mg tablet, extended release 24 hr 10 mg PO BID DIABETIC 11/05/22 [History Last Taken 11/22/22] levothyroxine 88 mcg tablet (Euthyrox) 88 mcg PO DAILY THYROID 11/05/22 [History Last Taken 11/23/22] prednisone 5 mg tablet 5 mg PO DAILY RA 11/05/22 [History Last Taken 11/23/22] rosuvastatin 10 mg tablet (Crestor) 10 mg PO QHS CHOLESTEROL 11/05/22 [History Last Taken 11/22/22] venlafaxine 150 mg capsule,extended release 24 hr (Effexor XR) 150 mg PO DAILY DEPRESSION 11/05/22 [History Last Taken 11/22/22] venlafaxine 75 mg tablet 75 mg PO DAILY DEPRESSION 11/05/22 [History Last Taken 11/22/22] hydroxychloroquine 200 mg tablet 200 mg PO BID RA #60 tabs 11/06/22 [Rx Last Taken 11/22/22] ondansetron HCl 8 mg tablet 8 mg PO Q6H 11/15/22 [History Last Taken 11/15/22] Allergy/AdvReac Type Severity Reaction Status Date / Time Iodinated Contrast Media Allergy Intermediate Hives Verified 11/23/22 09:38 [IVP dye] Seasonal Allergies: Uncoded Allergy Mild Hives Verified 11/23/22 09:38 levofloxacin [From Levaquin] Allergy PT UNSURE Verified 11/23/22 09:38 OF REACTION liraglutide [From Victoza] Allergy dehydration Verified 11/23/22 09:38 - ended up in hospital Sulfa (Sulfonamide Allergy pt states Verified 11/23/22 09:38 Antibiotics) has [sulfa drugs] tolerated some acetaminophen [From Percocet] AdvReac Itching Verified 11/23/22 09:38 adhesive AdvReac Rash Verified 11/23/22 09:38 hydrochlorothiazide AdvReac pt can tke Verified 11/23/22 09:38 tablet, but not capsule hydrocodone AdvReac Itching Verified 11/23/22 09:38 oxycodone [From Percocet] AdvReac Itching Verified 11/23/22 09:38 Family History Grandfather Cancer Heart disease Father Cancer Heart disease Diabetes Uncle Cancer Aunt Cancer Brother Heart disease Surgical History H/O heart artery stent History of lumbar laminectomy Hx of appendectomy Hx of cholecystectomy Hx of colonoscopy Hx of fusion of cervical spine Hx of release of tendon Hx of tonsillectomy Social History Smoking Status: Former smoker alcohol intake: never substance use type: does not use caffeine: Yes Type: carbonated beverages and tea what type of physical activity do you participate in: none seatbelt use: always do you feel safe at home: Yes ROS ROS Narrative Constitutional: Reports fatigue and weakness. No fever HEENT: Reports systems reviewed and no addt'l complaints, except as documented CVS: Denies chest pain, shortness of breath at rest. Rest as described in HPI Respiratory: Denies a smoking or chronic lung disease/COPD Gastrointestinal: Denies vomiting, hematemesis. No abdominal pain. Recent surgery as described in HPI Genitourinary: Denies burning urination or new urinary tract symptoms Musculoskeletal: Denies joint pain and limited range of motion Neurologic: Denies seizure-like activity. No stroke or strokelike symptoms skin: No ulcer. No rash Endocrinology: Diabetes mellitus type 2 with history of hypoglycemia. Reports systems reviewed and no addt'l complaints, except as documented Hematologic/Lymphatic: Reports systems reviewed and no addt'l complaints, except as documented Rest 14 ROS are negative except as mentioned in HPI Vital Signs Vital Signs Vital Signs: 11/23/22 09:39 Temperature 97.2 F L Temperature Source Temporal Pulse Rate 79 Respiratory Rate 16 Blood Pressure 135/55 H Blood Pressure Mean 81 Pulse Ox 100 Oxygen Delivery Method Room Air Weight Weight: 178 lb Body Mass Index (BMI) 27.0 Physical Exam Narrative Physical exam General: Alert, Oriented x3, Cooperative HEENT: Atraumatic, PERRLA, EOMI, Normocephalic Oral: Oral mucosa moist. No Gingival or Mucosal Lesions/ Ulcerations Neck: Supple, No JVD, Negative Carotid Bruits Lungs: Air entry diminished in bilateral lung bases. No crepitation/rhonchi Cardiovascular: Regular rate, Regular Rhythm, Normal S1, Normal S2, No murmurs Abdomen: Laparoscopic surgery ports and lower midline incision site dry with no discharge. Bowel Sounds sluggish, Soft, Non Tender, Non-Distended : No renal angle tenderness. No suprapubic tenderness. Extremities: No edema, Capillary Refill Less than 3 Seconds Skin: No rashes, No breakdown Musculoskeletal: ROM full and intact. No Tenderness to Palpation of Joints or Extremities Neurological: Cranial nerves II-XII grossly intact, DTR 2+/4 and Symmetrical, Neuro grossly intact Psych/Mental Status: Flat affect Results Lab / Micro Data Result Diagrams: 11/23/22 10:00 11/23/22 10:00 Labs: Laboratory Results - last 24 hr 11/23/22 10:00: WBC 14.0 H, RBC 3.66 L, Hgb 9.0 L, Hct 30.8 L, MCV 84.2, MCH 24.6 L, MCHC 29.2 L, RDW Std Deviation 52.6 H, RDW Coeff of Emilio 17.1 H, Plt Count 439, MPV 9.8, Immature Gran % (Auto) 0.800, Neut % (Auto) 84.0 H, Lymph % (Auto) 9.3 L, [place] % (Auto) 3.8, Eos % (Auto) 1.2, Baso % (Auto) 0.9, Absolute N euts (auto) 11.8 H, Absolute Lymphs (auto) 1.30, Nucleated RBC % 0 11/23/22 10:00: Sodium 144, Potassium 4.1, Chloride 111 H, Carbon Dioxide 26.0, Anion Gap 7, BUN 17, Creatinine 0.90, Estim Creat Clear Calc 65.38, Est GFR (MDRD) Af Amer 82, Est GFR (MDRD) Non-Af 68, BUN/Creatinine Ratio 19.0, Glucose 159 H, Calcium 9.1 11/23/22 10:00: Lactic Acid 1.0 11/23/22 10:00: Blood Type A NEGATIVE, Antibody Screen NEGATIVE Assessment & Plan Assessment/Plan (1) Acute lower gastrointestinal bleeding: (2) Anemia due to blood loss: PLAN: Plan This is a 62-year-old female is being admitted for acute lower GI bleed 1. Acute lower GI bleed with with acute blood loss anemia : Patient is being admitted in PCU. Her baseline hemoglobin runs around 10 to 11 g but dropped to 9 g today. She is A negative blood group. IV fluid resuscitation. Hemodynamically, BP and heart rate in normal range. GI consulted. Plan for colonoscopy. IV pantoprazole 40 mg 1 dose now and then oral from tomorrow 2. Recent history of laparoscopic right hemicolectomy and adhesiolysis for hepa tic flexure colon cancer with postop ileus: Currently patient passing flatus. ED physician Dr. Rossi discussed with Dr. Vasquez who consulted GI DrBrayden Suarez. Surgery is consulted. 3. Type 2 diabetes mellitus with history of hypoglycemia: Glucose in BMP is 159. Accu-Chek before meals and at bedtime coverage with sliding scale. Started on clear liquid diet 1800 ADA diet. 4. Hypertension: Patient Home medications are amlodipine, carvedilol and lisinopril. Hold lisinopril and amlodipine but continue carvedilol with holding parameters. We will resume rest of antihypertensive later on 5. Coronary artery status positive stents:: Continue statin but hold aspirin and Plavix. If no major drop in hemoglobin will resume Plavix from tomorrow. She follows outside insole rounder, Dr. Fernandez in [place]. 6. Dyslipidemia on statin, hypothyroidism on Synthroid, and anxiety and depression on venlafaxine: Home medications reconciliation done. VTE prophylaxis: Bilateral SCDs. Pharmacological prophylaxis contraindicated. Living will/advanced directive/end of life care: Patient does not have living will or advanced directive. She does not have designated power of deputy prosecuting attorney for healthcare after discussion of benefits/risks procedures involved with full code, DNR CC arrest and DNR CC, the patient and her mother near the bedside opted for full code. Patient does want artificial life support including intubation, tube feed, ventilator and/chest compression, central venous catheter, vasopressor and DC shock if needed Total time spent in [id number] encounter in discussion of advanced directive 16 minutes. Laboratory Results 11/23/22 10:00: WBC 14.0 H, RBC 3.66 L, Hgb 9.0 L, Hct 30.8 L, MCV 84.2, MCH 24.6 L, MCHC 29.2 L, RDW Std Deviation 52.6 H, RDW Coeff of Emilio 17.1 H, Plt Count 439, MPV 9.8, Immature Gran % (Auto) 0.800, Neut % (Auto) 84.0 H, Lymph % (Auto) 9.3 L, [place]ickson % (Auto) 3.8, Eos % (Auto) 1.2, Baso % (Auto) 0.9, Absolute Neuts (auto) 11.8 H, Absolute Lymphs (auto) 1.30, Nucleated RBC % 0 11/23/22 10:00: Sodium 144, Potassium 4.1, Chloride 111 H, Carbon Dioxide 26.0, Anion Gap 7, BUN 17, Creatinine 0.90, Estim Creat Clear Calc 65.38, Est GFR (MDRD) Af Amer 82, Est GFR (MDRD) Non-Af 68, BUN/Creatinine Ratio 19.0, Glucose 159 H, Calcium 9.1 11/23/22 10:00: Lactic Acid 1.0 11/23/22 10:00: Blood Type A NEGATIVE, Antibody Screen NEGATIVE 11/23/22 10:00: Magnesium Pending, Total Bilirubin Pending, Direct Bilirubin Pending, AST Pending, ALT Pending, Alkaline Phosphatase Pending, Total Protein Pending, Albumin Pending Charges/Coding Visit Charges Inpatient E&M: 25310 Init Hosp L3 Procedures Hospitalists Procedures: 22006 Advncd Care Plan 30 Min
[2022-11-23 12:10] VITALS: BP 116/64; BP 132/71; BP 134/73; BP 135/59; PULSE 75; PULSE 80; PULSE 84; PULSE 87; RESP 16; TEMP 36.2; O2SAT 98
[2022-11-23 12:45] VITALS: BMI 26.8
[2022-11-23 12:46] VITALS: BP 137/68; PULSE 77; RESP 16; TEMP 36.9; O2SAT 97
[2022-11-23] MEDS: Lactated Ringers 1,000 ML 75 ML IV (13:23)
[2022-11-23 13:45] LABS: Bedside Glucose 116 mg/dL (74-106)
[2022-11-23 13:46] LABS: AST(SGOT) 10 U/L (15-37); Alanine Aminotransfer ALT/SGPT 12 U/L (13-56); Alkaline Phosphatase 63 U/L (45-117); Bilirubin, Direct 0.09 mg/dL (0.00-0.30); Globulin 3.8 g/dL (2.2-4.2); Magnesium 1.5 mg/dL (1.6-2.6); Protein, Total 6.8 g/dL (6.4-8.2)
[2022-11-23 14:19] VITALS: O2SAT 96
--- NOTE | 2022-11-23 15:05 | CASEMGMT ---
RN CM Face to Face with patient for initial transition planning/care coordination assessment. RN CM introduced self and role at [facility]. Patient lying in bed, alert and oriented. Patient willing to participate in assessment and is able to answer all questions appropriately. Care providers, pharmacy, and demographics verified. Patient wishes to discharge home, denies need for home health at this time. Patient states he has no further needs or concerns at this time. CM to follow for discharge planning needs that may arise. PCP: Maribel Specialists: [employer] scar[employer] [place] Preferred Pharmacy: [facility]; [facility] retail at discharge Insurance: [employer] Prescription Benefit: yes Living Will/HPOA: none LNOK: mother Living Arrangements: Patient lives with mother in a 2 story home with bed and bath on first floor. 3 steps to enter the home. Patient is independent at home. Transportation: self, mother DME/HHC: Patient states she has shower chair, raised toilet, cane, walker. No previous HHC or SNF. Disposition Plan: Patient to discharge home with family support and follow-up plans in place. Deann GUERRERO, RN, CM
[2022-11-23 15:52] VITALS: BP 138/59; PULSE 73; RESP 16; TEMP 36.9; O2SAT 96
--- NOTE | 2022-11-23 16:15 | PCM.PN.BLA ---
Progress Note Lisbeth Craven is a 62 y/o WF who is s/p laparoscopic right hemicolectomy for colon cancer on 11/11/[address] Flood. She had postoperative ileus requiring hospitalization on 11/15/2022 and she was discharged on 11/19/2022 after non operative treatment of NG tube decompression, IV hydration and bowel rest. She now presents with complaint of hematochezia. She is noted in the ED to have a Hgb of 9, her last was noted to be 10. Patient notes no unusual abdominal pain except that which is noted postoperatively. I have consulted Dr. Suarez for his advice regarding this patient. I do not believe any surgery is indicated at this point in time.
[2022-11-23] MEDS: Hydroxychloroquine 200 MG Tablet PO (17:11)
[2022-11-23 17:50] LABS: Bedside Glucose 59 mg/dL (74-106)
[2022-11-23 17:51] LABS: Bedside Glucose 70 mg/dL (74-106)
--- NOTE | 2022-11-23 18:48 | EX.PCM.CON.G ---
HPI Consult Data Date of Consult: 11/23/22 HPI Narrative Reason for Consultation: GI bleed HPI Narrative: Blood Cb SU, is a 62-year-old woman who underwent EGD and colonoscopy by Dr. Golden Flood on November 01.? Patient was noted to have a hepatic flexure carcinoma.? There was no mention of internal hemorrhoids.? She underwent surgery on the .? She did have postoperative anemia.? This postoperative anemia did improve fusions. Patient was discharged home.? She returned because of abdominal pain and bloating. She was diagnosed with a postop ileus. The postop ileus was treated with NG. Patient presents today because of blood per rectum.? She does give orthostatic dizzy symptoms.? She denies nausea or vomiting.? She denies hematemesis.? She denies bruising easily.? She took her last dose of Plavix and aspirin yesterday. White blood cell count is 14. Hemoglobin is down from 10-9. Her platelet count is 439. 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 Electrolytes in normal range.? Glucose 159.? Lactic acid 1.0.? She has group and type immunity, blood group A negative.? Twelve-lead EKG shows sinus rhythm, LAD, LAFB, RBBB, minimal LVH with first AV block at 70 bpm.? QT420 ms. [facility] Medical History Acid reflux Anemia Anxiety Breast cyst Cancer Cardiology follow-up encounter Carpal tunnel syndrome Diabetes Dietary restriction Erythromelalgia Fibromyalgia Foot fracture, left Foot fracture, right Former smoker Gastric reflux Gastroenteritis Hepatitis History of chronic kidney disease History of diabetes mellitus History of echocardiogram History of heart attack History of renal disease History of steroid therapy Hypertension Infectious mononucleosis Injury of head and neck Leg cramps Low iron Measles Migraines Neuropathy Osteopenia Post-menopausal Rheumatoid arthritis Seasonal allergies Shingles Shortness of breath on exertion Small fiber neuropathy Thyroid disease UTI (urinary tract infection) Home Medications amlodipine 5 mg tablet 5 mg PO LUNCH BP 04/02/22 [History Last Taken 11/22/22] aspirin 81 mg tablet,delayed release (Adult Aspirin Regimen) 81 mg PO DAILY HEART 04/02/22 [History Last Taken 11/22/22] famotidine 40 mg tablet 40 mg PO QHS GERD 04/02/22 [History Last Taken 11/22/22] ibuprofen 800 mg tablet 800 mg PO Q6H PRN PRN Pain 04/02/22 [History Last Taken 11/15/22] nystatin 100,000 unit/gram topical powder (Nystop) 100,000 gm topical PRN PRN Skin Cleansing 04/02/22 [History Last Taken Unknown] biotin 5,000 mcg disintegrating tablet 10,000 mcg PO DAILY SUPPLEMENT 08/26/22 [History Last Taken 11/22/22] butalbital 50 mg-acetaminophen 325 mg-caffeine 40 mg-codeine 30 mg cap 1 cap PO Q4H PRN Pain 08/26/22 [History Last Taken 1 Week Ago ~11/08/22] hyoscyamine sulfate 0.125 mg tablet 0.125 mg PO BID-QID PRN Cough 08/26/22 [History Last Taken Unknown] valacyclovir 1 gram tablet (Valtrex) 1,000 mg PO DAILY PRN outbreak 08/26/22 [History Last Taken Unknown] vitamin B complex (B Complex-Vitamin B12 tablet) 1 tab PO DAILY SUPPLEMENT 08/26/22 [History Last Taken 11/22/22] lisinopril 5 mg tablet 5 mg PO QHS BP 10/31/22 [History Last Taken 11/22/22] carvedilol 3.125 mg tablet 3.125 mg PO BID BP/HEART 11/05/22 [History Last Taken 11/22/22] clopidogrel 75 mg tablet 75 mg PO DAILY BLOOD THINNER 11/05/22 [History Last Taken 11/22/22] glipizide 10 mg tablet, extended release 24 hr 10 mg PO BID DIABETIC 11/05/22 [History Last Taken 11/22/22] levothyroxine 88 mcg tablet (Euthyrox) 88 mcg PO DAILY THYROID 11/05/22 [History Last Taken 11/23/22] prednisone 5 mg tablet 5 mg PO DAILY RA 11/05/22 [History Last Taken 11/23/22] rosuvastatin 10 mg tablet (Crestor) 10 mg PO QHS CHOLESTEROL 11/05/22 [History Last Taken 11/22/22] venlafaxine 150 mg capsule,extended release 24 hr (Effexor XR) 150 mg PO DAILY DEPRESSION 11/05/22 [History Last Taken 11/22/22] venlafaxine 75 mg tablet 75 mg PO DAILY DEPRESSION 11/05/22 [History Last Taken 11/22/22] hydroxychloroquine 200 mg tablet 200 mg PO BID RA #60 tabs 11/06/22 [Rx Last Taken 11/22/22] ondansetron HCl 8 mg tablet 8 mg PO Q6H 11/15/22 [History Last Taken 11/15/22] Allergy/AdvReac Type Severity Reaction Status Date / Time Iodinated Contrast Media Allergy Intermediate Hives Verified 11/23/22 09:38 [IVP dye] Seasonal Allergies: Uncoded Allergy Mild Hives Verified 11/23/22 09:38 levofloxacin [From Levaquin] Allergy PT UNSURE Verified 11/23/22 09:38 OF REACTION liraglutide [From Victoza] Allergy dehydration Verified 11/23/22 09:38 - ended up in hospital Sulfa (Sulfonamide Allergy pt states Verified 11/23/22 09:38 Antibiotics) has [sulfa drugs] tolerated some acetaminophen [From Percocet] AdvReac Itching Verified 11/23/22 09:38 adhesive AdvReac Rash Verified 11/23/22 09:38 hydrochlorothiazide AdvReac pt can tke Verified 11/23/22 09:38 tablet, but not capsule hydrocodone AdvReac Itching Verified 11/23/22 09:38 oxycodone [From Percocet] AdvReac Itching Verified 11/23/22 09:38 Family History Grandfather Cancer Heart disease Father Cancer Heart disease Diabetes Uncle Cancer Aunt Cancer Brother Heart disease Surgical History H/O heart artery stent History of lumbar laminectomy Hx of appendectomy Hx of cholecystectomy Hx of colonoscopy Hx of fusion of cervical spine Hx of release of tendon Hx of tonsillectomy Social History Smoking Status: Former smoker alcohol intake: never substance use type: does not use caffeine: Yes Type: carbonated beverages and tea what type of physical activity do you participate in: none seatbelt use: always do you feel safe at home: Yes ROS ROS Narrative Constitutional: Reports fatigue and weakness. No fever HEENT: Reports systems reviewed and no addt'l complaints, except as documented CVS: Denies chest pain, shortness of breath at rest. Rest as described in HPI Respiratory: Denies a smoking or chronic lung disease/COPD Gastrointestinal: Denies vomiting, hematemesis. No abdominal pain. Recent surgery as described in HPI Genitourinary: Denies burning urination or new urinary tract symptoms Musculoskeletal: Denies joint pain and limited range of motion Neurologic: Denies seizure-like activity. No stroke or strokelike symptoms skin: No ulcer. No rash Endocrinology: Diabetes mellitus type 2 with history of hypoglycemia. Reports systems reviewed and no addt'l complaints, except as documented Hematologic/Lymphatic: Reports systems reviewed and no addt'l complaints, except as documented Rest 14 ROS are negative except as mentioned in HPI Physical Exam Narrative Physical exam General: Alert, Oriented x3, Cooperative HEENT: Atraumatic, PERRLA, EOMI, Normocephalic Oral: Oral mucosa moist. No Gingival or Mucosal Lesions/ Ulcerations Neck: Supple, No JVD, Negative Carotid Bruits Lungs: Air entry diminished in bilateral lung bases. No crepitation/rhonchi Cardiovascular: Regular rate, Regular Rhythm, Normal S1, Normal S2, No murmurs Abdomen: Laparoscopic surgery ports and lower midline incision site dry with no discharge. Bowel Sounds sluggish, Soft, Non Tender, Non-Distended : No renal angle tenderness. No suprapubic tenderness. Extremities: No edema, Capillary Refill Less than 3 Seconds Skin: No rashes, No breakdown Musculoskeletal: ROM full and intact. No Tenderness to Palpation of Joints or Extremities Neurological: Cranial nerves II-XII grossly intact, DTR 2+/4 and Symmetrical, Neuro grossly intact Psych/Mental Status: Flat affect Lab / Micro Data Result Diagrams: 11/23/22 10:00 11/23/22 10:00 Labs: Laboratory Results - last 24 hr 11/23/22 10:00: WBC 14.0 H, RBC 3.66 L, Hgb 9.0 L, Hct 30.8 L, MCV 84.2, MCH 24.6 L, MCHC 29.2 L, RDW Std Deviation 52.6 H, RDW Coeff of Emilio 17.1 H, Plt Count 439, MPV 9.8, Immature Gran % (Auto) 0.800, Neut % (Auto) 84.0 H, Lymph % (Auto) 9.3 L, [place] % (Auto) 3.8, Eos % (Auto) 1.2, Baso % (Auto) 0.9, Absolute Neuts (auto) 11.8 H, Absolute Lymphs (auto) 1.30, Nucleated RBC % 0 11/23/22 10:00: Sodium 144, Potassium 4.1, Chloride 111 H, Carbon Dioxide 26.0, Anion Gap 7, BUN 17, Creatinine 0.90, Estim Creat Clear Calc 65.38, Est GFR (MDRD) Af Amer 82, Est GFR (MDRD) Non-Af 68, BUN/Creatinine Ratio 19.0, Glucose 159 H, Calcium 9.1 11/23/22 10:00: Lactic Acid 1.0 11/23/22 10:00: Blood Type A NEGATIVE, Antibody Screen NEGATIVE 11/23/22 10:00: Magnesium 1.5 L, Total Bilirubin 0.20, Direct Bilirubin 0.09, AST 10 L, ALT 12 L, Alkaline Phosphatase 63, Total Protein 6.8, Albumin 3.0 L, Globulin 3.8 11/23/22 13:18: POC Glucose 116 H 11/23/22 17:04: POC Glucose 59 L 11/23/22 17:31: POC Glucose 70 L Assessment & Plan Assessment/Plan (1) Acute lower gastrointestinal bleeding: (2) Anemia due to blood loss: PLAN: Plan This is a 62-year-old female is being admitted for acute lower GI bleed Acute lower GI bleed with with acute blood loss anemia : Patient is being admitted in PCU. Her baseline hemoglobin runs around 10 to 11 g but dropped to 9 g today. Agree with type and screen. Monitor H&H every 6. She is A negative blood group. IV fluid resuscitation. Hemodynamically, BP and heart rate in normal range. Plan for colonoscopy. IV pantoprazole 40 mg 1 dose now and then oral from tomorrow Recent history of laparoscopic right hemicolectomy and adhesiolysis for hepatic flexure colon cancer with postop ileus: Currently patient passing flatus. She does not have any abdominal pain. I suspect that she just has some small oozing at the anastomotic site. Charges/Coding Visit Charges Inpatient E&M: 61821 Init Hosp L2
[2022-11-23] MEDS: Bisacodyl 5 MG Tablet 20 MG PO (19:51)
[2022-11-23] MEDS: Polyethylene Glycol 3350 BOWEL PREP PO (19:52)
[2022-11-23] MEDS: Atorvastatin Calcium 20 MG Tablet PO (20:25)
[2022-11-23] MEDS: Carvedilol 3.125 MG TABLET PO (20:25)
[2022-11-23 21:33] VITALS: BP 129/64; PULSE 73; RESP 16; TEMP 36.7; O2SAT 98
[2022-11-23] MEDS: Ondansetron 4 MG/2 ML Vial IV (21:46)
[2022-11-23 22:15] VITALS: BMI 26.8
[2022-11-24] VITALS (9 sets, daily range): BP systolic 116–149; BP diastolic 52–64; PULSE 63–74; RESP 16; TEMP 36.3–37.2; O2SAT 93–98
[2022-11-24] MEDS: Lactated Ringers 1,000 ML 75 ML IV (00:11)
[2022-11-24 00:14] LABS: Hematocrit 29.1 % (37-47); Hemoglobin 8.4 g/dL (12.0-15.0)
[2022-11-24 01:01] LABS: Bedside Glucose 161 mg/dL (74-106)
[2022-11-24 01:01] LABS: Bedside Glucose 137 mg/dL (74-106)
[2022-11-24 06:26] LABS: Absolute Lymphocyte Count 2.21 X10^3/uL (0.83-4.51); Absolute Neutrophil Count 7.6 X10^3/uL (2.0-7.7); Basophil# 0.11 X10^3/uL; Eosinophil# 0.24 X10^3/uL; Eosinophils% 2.2 % (0-5); Hematocrit 27.9 % (37-47); Hemoglobin 8.1 g/dL (12.0-15.0); Lymphocyte # 2.21 X10^3/ul (0.83-4.51); Mean Corpuscular Hgb 24.4 pg (27.0-32.0); Mean Platelet Vol. 9.9 fl (6.2-12.0); Monocyte# 0.78 X10^3/uL; Monocyte% 7.1 % (0-10); NRBC Flagged by Analyzer 0 % (0-5); Neutrophil # 7.64 X10^3/uL (2.7-7.7); Neutrophil % 69.1 % (47-70); Platelet Count 414 K/mm3 (150-450); RBC Distribution Width CV 17.1 % (11.6-14.6); RBC Distribution Width SD 52.5 fl (35.1-43.9); Red Blood Count 3.32 M/mm3 (4.2-5.4); White Blood Count 11.1 K/mm3 (4.4-11.0)
[2022-11-24 06:31] LABS: International Normalized Ratio 1.1; Prothrombin Time (Protime)PT. 13.7 SECONDS (11.7-14.9)
[2022-11-24 06:32] LABS: Partial Thromboplast Time 31.2 Seconds (24.1-36.2)
[2022-11-24 06:55] LABS: Anion Gap 6 (5-15); BUN 14 mg/dL (7-18); BUN/Creat Ratio 14.3 RATIO (10-20); Calcium,Total 9.1 mg/dL (8.5-10.1); Chloride 111 mmol/L (98-107); Creatinine, Serum 0.98 mg/dL (0.55-1.02); EST Glomerular Filtration Rate 61 mL/min (>60); Est Glom Filt Rate - Afr Amer 74 mL/min (>60); Estimated Creatinine Clearance 60.04 ml/min; Glucose 147 mg/dL (74-106); Phosphorus 4.6 mg/dL (2.5-4.9); Potassium 3.8 mmol/L (3.5-5.1); Sodium Level 144 mmol/L (136-145); Thyroid Stim Hormone (TSH) 1.72 uIU/mL (0.358-3.74)
--- NOTE | 2022-11-24 08:05 | COLBX_PTH ---
PATIENT: ESTELLA SU LOC: U U#:[id number] AGE/SX: 62/F ROOM: [facility] RE11/23/[address]: Dr. Robert Reece MD : 1960 BED: 1 DIS: 11/27/2022 SPEC #: [id number] RECD: 11/24/22 19:59 STATUS: JAYSHREE REMireya #: [id number] LANRE: 11/24/22 08:[address]: Shaun Suarez DEPT: SURGICAL PATHOLOGY RECD BY: Marycarmen De La Vega ENTERED: 11/25/22 11:26 SP TYPE: COLON BX OTHR DR: MD Dr. Angi Floyd MD Dr. Prakash Chand, MD Tissues: A - COLON BIOPSY B - Sigmoid colon biopsy C - Rectum, NOS Procedures: Surgery Specimen Level IV Comments: @ Ordering doctor for SUIV edited from to @ by LILIAN at 11/25/22 1446 @ Submitting doctor edited from to @ by DEMONDOD at 11/25/22 1446 HEADER OPERATION: Colonoscopy (MAC), APC, hot snare, polypectomy, biopsy PRE-OP DIAGNOSIS: Acute lower GI bleeding, anemia due to blood loss TISSUE SUBMITTED: A ? Splenic flexure polyp, B ? Sigmoid polyp, C ? Rectal biopsy MICROSCOPIC DIAGNOSIS A. Colonic polyp at splenic flexure, biopsy: Fragments of tubular adenoma. B. Sigmoid colon polyp, biopsy: Tubular adenoma. C. Rectum, biopsy: Focal hyperplastic-like change. AM:vicente 11/26/2022 MICROSCOPIC DESCRIPTION Slides are reviewed. GROSS DESCRIPTION A - Received in fixative is one container labeled with the patient's name and designated splenic flexure polyp. The specimen consists of multiple irregular fragments of light emery soft tissue that in aggregate measure 0.6 x 0.4 x 0.1 cm. The specimen is totally submitted in one cassette. B - Received in fixative is one container labeled with the patient's name and designated sigmoid polyp. The specimen consists of a emery-pink polyp measuring 0.5 x 0.5 x 0.3 cm. Multiple fragments of fecal material are also noted. The specimen is totally submitted in one cassette. C - Received in fixative is one container labeled with the patient's name and designated rectal biopsy. The specimen consists of one irregular fragment of light emery soft tissue that measures 0.3 x 0.2 x 0.1 cm. The specimen is totally submitted in one cassette. / BENITO:vicente 11/25/2022 TC:5 CPT: 79332 x3
--- NOTE | 2022-11-24 08:26 | PN.HOSP_ITS ---
Reason for Visit Reason for Visit: Diagnoses Iron deficiency anemia secondary to blood loss (chronic) (11/23/22) Gastrointestinal hemorrhage, unspecified (11/23/22) Subjective Subjective Follow-up for lower GI bleed. Patient had EGD in the morning. Objective Data Objective Data Vital Signs: Vital Signs Temp Pulse Resp BP Pulse Ox O2 Del Method 97.9 F 71 16 149/64 H 96 Room Air 11/24/22 03:30 11/24/22 03:30 11/24/22 03:30 11/24/22 03:30 11/24/22 03:30 11/24/22 03:30 Oxygen Delivery Method Room Air Weight: 177 lb 0.499 oz Body Mass Index (BMI) 26.8 Intake & Output: Intake and Output for Last 24 Hours 11/22/22 11/23/22 11/24/22 23:59 23:59 23:59 Intake Total 1330 / 1330 810 / 810 Balance 1330 / 1330 810 / 810 Lab / Micro Data Result Diagrams: 11/24/22 05:45 11/24/22 05:45 Labs: Laboratory Results - last 24 hr 11/23/22 10:00: WBC 14.0 H, RBC 3.66 L, Hgb 9.0 L, Hct 30.8 L, MCV 84.2, MCH 24.6 L, MCHC 29.2 L, RDW Std Deviation 52.6 H, RDW Coeff of Emilio 17.1 H, Plt Count 439, MPV 9.8, Immature Gran % (Auto) 0.800, Neut % (Auto) 84.0 H, Lymph % (Auto) 9.3 L, Granite % (Auto) 3.8, Eos % (Auto) 1.2, Baso % (Auto) 0.9, Absolute Neuts (auto) 11.8 H, Absolute Lymphs (auto) 1.30, Nucleated RBC % 0 11/23/22 10:00: Sodium 144, Potassium 4.1, Chloride 111 H, Carbon Dioxide 26.0, Anion Gap 7, BUN 17, Creatinine 0.90, Estim Creat Clear Calc 65.38, Est GFR (MDRD) Af Amer 82, Est GFR (MDRD) Non-Af 68, BUN/Creatinine Ratio 19.0, Glucose 159 H, Calcium 9.1 11/23/22 10:00: Lactic Acid 1.0 11/23/22 10:00: Blood Type A NEGATIVE, Antibody Screen NEGATIVE 11/23/22 10:00: Magnesium 1.5 L, Total Bilirubin 0.20, Direct Bilirubin 0.09, AST 10 L, ALT 12 L, Alkaline Phosphatase 63, Total Protein 6.8, Albumin 3.0 L, Globulin 3.8 11/23/22 13:18: POC Glucose 116 H 11/23/22 17:04: POC Glucose 59 L 11/23/22 17:31: POC Glucose 70 L 11/23/22 19:42: POC Glucose 137 H 11/23/22 23:49: Hgb 8.4 L, Hct 29.1 L 11/24/22 00:13: POC Glucose 161 H 11/24/22 05:45: WBC 11.1 H, RBC 3.32 L, Hgb 8.1 L, Hct 27.9 L, MCV 84.0, MCH 24.4 L, MCHC 29.0 L, RDW Std Deviation 52.5 H, RDW Coeff of Emilio 17.1 H, Plt Count 414, MPV 9.9, Immature Gran % (Auto) 0.600, Neut % (Auto) 69.1, Lymph % (Auto) 20.0, Granite % (Auto) 7.1, Eos % (Auto) 2.2, Baso % (Auto) 1.0, Absolute Neuts (auto) 7.6, Absolute Lymphs (auto) 2.21, Nucleated RBC % 0 11/24/22 05:45: Sodium 144, Potassium 3.8, Chloride 111 H, Carbon Dioxide 27.0, Anion Gap 6, BUN 14, Creatinine 0.98, Estim Creat Clear Calc 60.04, Est GFR (MDRD) Af Amer 74, Est GFR (MDRD) Non-Af 61, BUN/Creatinine Ratio 14.3, Glucose 147 H, Calcium 9.1, Phosphorus 4.6, TSH 1.72 11/24/22 05:45: PT 13.7, INR 1.1, APTT 31.2 Physical Exam Narrative Seen and examined. Patient had colonoscopy in the morning. Report discussed with the patient and her mother near the bedside. Patient passing flatus and bowel movement. Physical exam General: Alert, Oriented x3, Cooperative HEENT: Atraumatic, PERRLA, EOMI, Normocephalic Oral: Oral mucosa moist. No Gingival or Mucosal Lesions/ Ulcerations Neck: Supple, No JVD, Negative Carotid Bruits Lungs: Air entry diminished in bilateral lung bases. No crepitation/rhonchi Cardiovascular: Regular rate, Regular Rhythm, Normal S1, Normal S2, No murmurs Abdomen: Laparoscopic surgery ports and lower midline incision site dry with no discharge. Bowel Sounds sluggish, Soft, Non Tender, Non-Distended : No renal angle tenderness. No suprapubic tenderness. Extremities: No edema, Capillary Refill Less than 3 Seconds Skin: No rashes, No breakdown Musculoskeletal: ROM full and intact. No Tenderness to Palpation of Joints or Extremities Neurological: Cranial nerves II-XII grossly intact, DTR 2+/4 and Symmetrical, Neuro grossly intact Psych/Mental Status: Flat affect Assessment & Plan Assessment/Plan (1) Acute lower gastrointestinal bleeding: (2) Anemia due to blood loss: PLAN: Plan This is a 62-year-old female is being admitted for acute lower GI bleed 1. Acute lower GI bleed with with acute blood loss anemia : Patient is being admitted in PCU. Her baseline hemoglobin runs around 10 to 11 g but dropped to 9 g today. She is A negative blood group. IV fluid resuscitation. Hemodynamically, BP and heart rate in normal range. GI consulted. Plan for colonoscopy. IV pantoprazole 40 mg 1 dose now and then oral from tomorrow 11/24: Colonoscopy reported discontinuous nonbleeding ulcerated mucosa with no stigmata of recent bleeding. 2 sessile polyps in sigmoid colon and splenic flexure removed by hot snare. End-to-side colocolonic anastomosis characterized by hemorrhagic appearance, ulceration, friable mucosa with intact staple line. This was discussed with the patient and her mother near the bedside. No aspirin ibuprofen naproxen or other NSAIDs. Plavix from tomorrow a.m. as patient had 3 stents during last week of April. We will consider aspirin range of motion after 5 days. 1 dose of IV iron ordered. Hemoglobin dropped to 8.1 2. Recent history of laparoscopic right hemicolectomy and adhesiolysis for hepatic flexure colon cancer with postop ileus: Currently patient passing flatus. ED physician Dr. Rossi discussed with Dr. Vasquez who consulted GI DrBrayden Suarez. Surgery is consulted. 11/24: Discussed with surgeon. Patient passing flatus. 3. Type 2 diabetes mellitus with history of hypoglycemia: Glucose in BMP is 159. Accu-Chek before meals and at bedtime coverage with sliding scale. Started on clear liquid diet 1800 ADA diet. 11/24: Glucose is controlled about 140-200. 4. Hypertension: Patient Home medications are amlodipine, carvedilol and lisinopril. Hold lisinopril and amlodipine but continue carvedilol with holding parameters. We will resume rest of antihypertensive later on BP is controlled. 5. Coronary artery status positive stents:: Continue statin but hold aspirin and Plavix. 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 Last cardiac stent was in last week of April 2022 less than 1 year. She had all 3 stents placed at one time. 6. Dyslipidemia on statin, hypothyroidism on Synthroid, and anxiety and depression on venlafaxine: Home medications reconciliation done. VTE prophylaxis: Bilateral SCDs. Pharmacological prophylaxis contraindicated. Living will/advanced directive/end of life care: Patient does not have living will or advanced directive. She does not have designated power of health care attorney for healthcare after discussion of benefits/risks procedures involved with full code, DNR CC arrest and DNR CC, the patient and her mother near the bedside o pted for full code. Patient does want artificial life support including intubation, tube feed, vent ilator and/chest compression, central venous catheter, vasopressor and DC shock if needed Laboratory Results 11/23/22 10:00: WBC 14.0 H, RBC 3.66 L, Hgb 9.0 L, Hct 30.8 L, MCV 84.2, MCH 24.6 L, MCHC 29.2 L, RDW Std Deviation 52.6 H, RDW Coeff of Emilio 17.1 H, Plt Count 439, MPV 9.8, Immature Gran % (Auto) 0.800, Neut % (Auto) 84.0 H, Lymph % (Auto) 9.3 L, Granite % (Auto) 3.8, Eos % (Auto) 1.2, Baso % (Auto) 0.9, Absolute Neuts (auto) 11.8 H, Absolute Lymphs (auto) 1.30, Nucleated RBC % 0 11/23/22 10:00: Sodium 144, Potassium 4.1, Chloride 111 H, Carbon Dioxide 26.0, Anion Gap 7, BUN 17, Creatinine 0.90, Estim Creat Clear Calc 65.38, Est GFR (MDRD) Af Amer 82, Est GFR (MDRD) Non-Af 68, BUN/Creatinine Ratio 19.0, Glucose 159 H, Calcium 9.1 11/23/22 10:00: Lactic Acid 1.0 11/23/22 10:00: Blood Type A NEGATIVE, Antibody Screen NEGATIVE 11/23/22 10:00: Magnesium Pending, Total Bilirubin Pending, Direct Bilirubin Pending, AST Pending, ALT Pending, Alkaline Phosphatase Pending, Total Protein Pending, Albumin Pending Charges/Coding Visit Charges Inpatient E&M: 65705 Subs Hosp L3
--- NOTE | 2022-11-24 08:40 | OP.CCLET_ITS ---
11/24/2022 Kimi López [facility] [address] [place] [address] Re : Colonoscopy procedure for Lisbeth Craven Dear Dr. López This procedure was performed on Thursday, November 24, 2022. My impressions and recommendations are as follows: Impressions : - Mucosal ulceration. Biopsied. - Two 1 to 2 mm polyps in the sigmoid colon and at the splenic flexure, removed with a hot snare. Resected and retrieved. - Patent end-to-side colo-colonic anastomosis, characterized by friable mucosa, a hemorrhagic appearance, ulceration and an intact staple line. Treated with argon plasma coagulation (APC). Recommendations : - [facility]. - Resume previous diet. - No aspirin, ibuprofen, naproxen, or other non-steroidal anti-inflammatory drugs for 5 days after polyp removal. - Await pathology results. - Repeat colonoscopy in 1 year for surveillance. - Ursodiol 250 mg twice a day for 6 weeks - Clopidogrel can be restarted tomorrow and aspirin in 5 days My findings are described in the full procedure note, which is enclosed. If I can be of further assistance, please feel free to contact me at . Sincerely, Shaun Suarez DO 11/24/2022 8:39:39 AM This report has been signed electronically.
--- NOTE | 2022-11-24 08:40 | OP.COLON_ITS ---
Patient Name: Lisbeth Craven Procedure Date: 11/24/2022 7:40 AM Date of : 1960 Age: 62 Procedure: Colonoscopy Indications: Hematochezia Providers: Shaun Suarez DO Medicines: Monitored Anesthesia Care Patient Profile: This is a 62 year old female. Refer to note in patient chart for documentation of history and physical. Last Colonoscopy: within the past month. Complications: No immediate complications. Procedure: Pre-Anesthesia Assessment: - Prior to the procedure, a History and Physical was performed, and patient medications and allergies were reviewed. The risks and benefits of the procedure and the sedation options and risks were discussed with the patient. All questions were answered and informed consent was obtained. Patient identification and proposed procedure were verified by the physician in the pre-procedure area. Mental Status Examination: alert and oriented. Airway Examination: normal oropharyngeal airway and neck mobility. Respiratory Examination: clear to auscultation. CV Examination: normal. Prophylactic Antibiotics: The patient does not require prophylactic antibiotics. Prior Anticoagulants: The patient has taken no previous anticoagulant or antiplatelet agents. After reviewing the risks and benefits, the patient was deemed in satisfactory condition to undergo the procedure. The anesthesia plan was to use monitored anesthesia care (MAC). Immediately prior to administration of medications, the patient was re-assessed for adequacy to receive sedatives. The heart rate, respiratory rate, oxygen saturations, blood pressure, adequacy of pulmonary ventilation, and response to care were monitored throughout the procedure. The physical status of the patient was re-assessed after the procedure. After I obtained informed consent, the scope was passed under direct vision. Throughout the procedure, the patient's blood pressure, pulse, and oxygen saturations were monitored continuously. The Colonoscope was introduced through the anus and advanced to the transverse colon to examine an anastomosis. This was the intended extent. The colonoscopy was performed without difficulty. The patient tolerated the procedure well. The quality of the bowel preparation was good. Scope In: 8:08:10 AM Scope Out: 8:30:00 AM Total Procedure Duration Time 0 hours 21 minutes 50 seconds Findings: The perianal and digital rectal examinations were normal. Discontinuous areas of nonbleeding ulcerated mucosa with no stigmata of recent bleeding were present in the rectum. Biopsies were taken with a cold forceps for histology. Verification of patient identification for the specimen was done. Estimated blood loss was minimal. Two sessile polyps were found in the sigmoid colon and splenic flexure. The polyps were 1 to 2 mm in size. These polyps were removed with a hot snare. Resection and retrieval were complete. Verification of patient identification for the specimen was done. Estimated blood loss was minimal. There was evidence of a prior end-to-side colo-colonic anastomosis in the transverse colon. This was patent and was characterized by friable mucosa, a hemorrhagic appearance, ulceration and an intact staple line. The anastomosis was traversed. Coagulation for hemostasis using argon plasma at 0.3 liters/minute and 20 harris was successful. Estimated blood loss was minimal. Impression: - Mucosal ulceration. Biopsied. - Two 1 to 2 mm polyps in the sigmoid colon and at the splenic flexure, removed with a hot snare. Resected and retrieved. - Patent end-to-side colo-colonic anastomosis, characterized by friable mucosa, a hemorrhagic appearance, ulceration and an intact staple line. Treated with argon plasma coagulation (APC). Recommendation: - [facility] patient to [facility]. - Resume previous diet. - No aspirin, ibuprofen, naproxen, or other non-steroidal anti-inflammatory drugs for 5 days after polyp removal. - Await pathology results. - Repeat colonoscopy in 1 year for surveillance. - Ursodiol 250 mg twice a day for 6 weeks - Clopidogrel can be restarted tomorrow and aspirin in 5 days Procedure Code(s): --- Professional --- 35212, 59,52, Colonoscopy, flexible; with control of bleeding, any method 61334, 52, Colonoscopy, flexible; with removal of tumor(s), polyp(s), or other lesion(s) by snare technique 07017, 59,52, Colonoscopy, flexible; with biopsy, single or multiple CPT copyright 2017 [employer]. All rights reserved. The codes documented in this report are preliminary and upon insurance coder review may be revised to meet current compliance requirements. Shaun Suarez DO 11/24/2022 8:39:39 AM This report has been signed electronically. Number of Addenda: 0 Note Initiated On: 11/24/2022 7:40 AM
[2022-11-24] MEDS: Levothyroxine 88 MCG Tablet PO (09:53)
[2022-11-24] MEDS: Carvedilol 3.125 MG TABLET PO ×2 (09:53→19:54)
[2022-11-24] MEDS: Venlafaxine HCl 75 MG Tablet PO (09:53)
[2022-11-24] MEDS: Hydroxychloroquine 200 MG Tablet PO ×2 (09:53→16:29)
[2022-11-24] MEDS: Venlafaxine XR 150 MG Capsule PO (09:53)
[2022-11-24] MEDS: Pantoprazole Sodium 40 MG Tablet PO (09:53)
--- NOTE | 2022-11-24 11:06 | PCM.PN.BLA ---
Progress Note colonoscopy done by Dr. Suarez, findings of friability and ulceration at anastomotic site patient has not passed flatus or bowel movements since procedure continue present therapy
[2022-11-24] MEDS: Insulin Lispro 100 UNIT/ML INSULN.PEN SC ×2 (11:31→23:49)
[2022-11-24 12:15] LABS: Bedside Glucose 200 mg/dL (74-106)
[2022-11-24] MEDS: Potassium Chloride Oral Tablet 20 MEQ 40 MEQ PO (14:22)
[2022-11-24 16:45] LABS: Bedside Glucose 128 mg/dL (74-106)
[2022-11-24 17:35] LABS: Bedside Glucose 92 mg/dL (74-106)
[2022-11-24] MEDS: Atorvastatin Calcium 20 MG Tablet PO (19:54)
--- NOTE | 2022-11-24 19:56 | NURSING ---
Patient requesting medications when SN rounds wanting to rest
[2022-11-25 01:11] LABS: Bedside Glucose 165 mg/dL (74-106)
[2022-11-25 03:40] VITALS: BP 120/50; PULSE 74; RESP 18; TEMP 36.8; O2SAT 95
[2022-11-25] MEDS: Levothyroxine 88 MCG Tablet PO (05:54)
[2022-11-25] MEDS: Insulin Lispro 100 UNIT/ML INSULN.PEN SC (05:57)
[2022-11-25 06:23] LABS: Absolute Lymphocyte Count 1.76 X10^3/uL (0.83-4.51); Absolute Neutrophil Count 7.5 X10^3/uL (2.0-7.7); Eosinophil# 0.27 X10^3/uL; Eosinophils% 2.6 % (0-5); Hematocrit 26.8 % (37-47); Hemoglobin 7.8 g/dL (12.0-15.0); Lymphocyte # 1.76 X10^3/ul (0.83-4.51); Lymphocyte % 16.9 % (19-41); Mean Corp Hgb Conc 29.1 g/dL (32-36); Mean Corpuscular Hgb 24.8 pg (27.0-32.0); Mean Corpuscular Volume 85.1 fL (81-99); Monocyte# 0.76 X10^3/uL; Monocyte% 7.3 % (0-10); NRBC Flagged by Analyzer 0 % (0-5); Neutrophil # 7.47 X10^3/uL (2.7-7.7); Neutrophil % 71.7 % (47-70); Platelet Count 393 K/mm3 (150-450); RBC Distribution Width SD 53.1 fl (35.1-43.9); Red Blood Count 3.15 M/mm3 (4.2-5.4); White Blood Count 10.4 K/mm3 (4.4-11.0)
[2022-11-25 06:58] LABS: Anion Gap 6 (5-15); BUN 13 mg/dL (7-18); BUN/Creat Ratio 12.1 RATIO (10-20); Calcium,Total 8.5 mg/dL (8.5-10.1); Chloride 111 mmol/L (98-107); Creatinine, Serum 1.07 mg/dL (0.55-1.02); EST Glomerular Filtration Rate 55 mL/min (>60); Est Glom Filt Rate - Afr Amer 67 mL/min (>60); Estimated Creatinine Clearance 54.99 ml/min; Glucose 179 mg/dL (74-106); Potassium 3.9 mmol/L (3.5-5.1); Sodium Level 143 mmol/L (136-145)
--- NOTE | 2022-11-25 07:29 | PN.SURG_ITS ---
Subjective Subjective Feels well. She had a regular diet last night. She states that she has had further bright red rectal bleeding. Objective Data Objective Data Vital Signs: Vital Signs Temp Pulse Resp BP Pulse Ox O2 Del Method 98.3 F 74 18 120/50 L 95 Room Air 11/25/22 03:40 11/25/22 03:40 11/25/22 03:40 11/25/22 03:40 11/25/22 03:40 11/25/22 03:40 Oxygen Delivery Method Room Air Weight: 177 lb 14.609 oz Body Mass Index (BMI) 26.8 Intake & Output: Intake and Output for Last 24 Hours 11/23/22 11/24/22 11/25/22 23:59 23:59 23:59 Intake Total 1330 / 1330 3144 / 3144 Balance 1330 / 1330 3144 / 3144 Medical Nutrition Assessment Dietitian: Malnutrition Criteria Met Start: 11/24/22 12:45 Freq: Status: Active Protocol: Document 11/24/22 12:45 AG (Rec: 11/24/22 12:45 [id number]) Nutrition Malnutrition Evidence of Malnutrition Exists Yes Malnutrition (severe): Acute Illness/Injury Evidenced By Suboptimal Energy Intake ( Severe),Weight Loss (Severe) Clinical Problem Acute Disease or Injury Related Malnutrition Etiology severe, acute malnutrition related to inadequate energy intake w/ increased energy needs d/t cancer Signs/Symptoms as evidenced by unintentional wt loss of 9.5#/5% < 2 weeks; estimated PO intake meeting < 50% of estimated energy needs x 5 days Status Active Problem Recommendation Dietitian Recommendations/Changes recommend advance diet as tolerated to regular/fiber restricted; ensure plus high protein 120mL 4x/day w/ medpass for additional calories/protein if consumed. Lab / Micro Data Result Diagrams: 11/25/22 05:15 11/25/22 05:15 Labs: Laboratory Results - last 24 hr 11/24/22 06:25: POC Glucose 128 H 11/24/22 11:27: POC Glucose 200 H 11/24/22 16:27: POC Glucose 92 11/24/22 23:48: POC Glucose 165 H 11/25/22 05:15: WBC 10.4, RBC 3.15 L, Hgb 7.8 L, Hct 26.8 L, MCV 85.1, MCH 24.8 L, MCHC 29.1 L, RDW Std Deviation 53.1 H, RDW Coeff of Emilio 17.0 H, Plt Count 393, MPV 10.0, Immature Gran % (Auto) 0.500, Neut % (Auto) 71.7 H, Lymph % (Auto) 16.9 L, [place] % (Auto) 7.3, Eos % (Auto) 2.6, Baso % (Auto) 1.0, Absolute Neuts (auto) 7.5, Absolute Lymphs (auto) 1.76, Nucleated RBC % 0 11/25/22 05:15: Sodium 143, Potassium 3.9, Chloride 111 H, Carbon Dioxide 26.0, Anion Gap 6, BUN 13, Creatinine 1.07 H, Estim Creat Clear Calc 54.99, Est GFR (MDRD) Af Amer 67, Est GFR (MDRD) Non-Af 55 L, BUN/Creatinine Ratio 12.1, Glucose 179 H, Calcium 8.5 Physical Exam GI GI Narrative: Soft, nontender Assessment & Plan Assessment/Plan (1) Acute lower gastrointestinal bleeding: PLAN: I have interviewed and examined the patient. I have had a chance to discuss the patient's care with Dr. Shaun Suarez. I have reviewed the images in [facility]. The surgical anastomosis looks completely intact. It looks like a normal-appearing anastomosis for this stage postoperatively. 1 focal area of granulation which was not felt to be the source of the gastrointestinal bleed. Upon discussion the patient apparently has significant friability of the rectum with some linear injuries. Undetermined etiology. I would recommend considering direct treatment of the rectum perhaps with oral metronidazole or local steroid/Proctofoam. I would encourage avoiding blood transfusions if possible as this potentially will affect her colon cancer prognosis I very much appreciate the assistance of Dr. Shaun Suarez. I will be personally out and unable to assist for approximately the next 2 to 3 weeks. Fortunately at this time it does not appear that the patient will require additional surgical intervention. Golden Flood M.D., F.A.C.S.
[2022-11-25 07:42] VITALS: BP 134/57; PULSE 66; RESP 16; TEMP 36.2; O2SAT 98
[2022-11-25 08:27] VITALS: BP 130/55; PULSE 72; RESP 16; TEMP 36.6; O2SAT 98
[2022-11-25] MEDS: Potassium Chloride Oral Tablet 20 MEQ 40 MEQ PO (08:31)
--- NOTE | 2022-11-25 09:08 | PN.HOSP_ITS ---
Reason for Visit Reason for Visit: Diagnoses Iron deficiency anemia secondary to blood loss (chronic) (11/23/22) Gastrointestinal hemorrhage, unspecified (11/23/22) Subjective Subjective Follow-up for acute GI bleed Objective Data Objective Data Vital Signs: Vital Signs Temp Pulse Resp BP Pulse Ox O2 Del Method 97.8 F 72 16 130/55 H 98 Room Air 11/25/22 08:27 11/25/22 08:27 11/25/22 08:27 11/25/22 08:27 11/25/22 08:27 11/25/22 08:35 Oxygen Delivery Method Room Air Weight: 177 lb 14.609 oz Body Mass Index (BMI) 26.8 Intake & Output: Intake and Output for Last 24 Hours 11/23/22 11/24/22 11/25/22 23:59 23:59 23:59 Intake Total 1330 / 1330 3144 / 3144 0 / 0 Balance 1330 / 1330 3144 / 3144 0 / 0 Medical Nutrition Assessment Dietitian: Malnutrition Criteria Met Start: 11/24/22 12:45 Freq: Status: Active Protocol: Document 11/24/22 12:45 AG (Rec: 11/24/22 12:45 AG [id number]) Nutrition Malnutrition Evidence of Malnutrition Exists Yes Malnutrition (severe): Acute Illness/Injury Evidenced By Suboptimal Energy Intake ( Severe),Weight Loss (Severe) Clinical Problem Acute Disease or Injury Related Malnutrition Etiology severe, acute malnutrition related to inadequate energy intake w/ increased energy needs d/t cancer Signs/Symptoms as evidenced by unintentional wt loss of 9.5#/5% < 2 weeks; estimated PO intake meeting < 50% of estimated energy needs x 5 days Status Active Problem Recommendation Dietitian Recommendations/Changes recommend advance diet as tolerated to regular/fiber restricted; ensure plus high protein 120mL 4x/day w/ medpass for additional calories/protein if consumed. Lab / Micro Data Result Diagrams: 11/25/22 05:15 11/25/22 05:15 Labs: Laboratory Results - last 24 hr 11/23/22 10:00: Crossmatch See Detail 11/24/22 06:25: POC Glucose 128 H 11/24/22 11:27: POC Glucose 200 H 11/24/22 16:27: POC Glucose 92 11/24/22 23:48: POC Glucose 165 H 11/25/22 05:15: WBC 10.4, RBC 3.15 L, Hgb 7.8 L, Hct 26.8 L, MCV 85.1, MCH 24.8 L, MCHC 29.1 L, RDW Std Deviation 53.1 H, RDW Coeff of Emilio 17.0 H, Plt Count 393, MPV 10.0, Immature Gran % (Auto) 0.500, Neut % (Auto) 71.7 H, Lymph % (Auto) 16.9 L, [place] % (Auto) 7.3, Eos % (Auto) 2.6, Baso % (Auto) 1.0, Absolute Neuts (auto) 7.5, Absolute Lymphs (auto) 1.76, Nucleated RBC % 0 11/25/22 05:15: Sodium 143, Potassium 3.9, Chloride 111 H, Carbon Dioxide 26.0, Anion Gap 6, BUN 13, Creatinine 1.07 H, Estim Creat Clear Calc 54.99, Est GFR (MDRD) Af Amer 67, Est GFR (MDRD) Non-Af 55 L, BUN/Creatinine Ratio 12.1, Glucose 179 H, Calcium 8.5 Physical Exam Narrative Seen and examined. 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 Patient stated it was moderate amount, verified by nursing staff. Patient seen by surgeon Dr. Golden Flood in the morning. Physical exam General: Alert, Oriented x3, Cooperative HEENT: Atraumatic, PERRLA, EOMI, Normocephalic Oral: Oral mucosa moist. No Gingival or Mucosal Lesions/ Ulcerations Neck: Supple, No JVD, Negative Carotid Bruits Lungs: Air entry diminished in bilateral lung bases. No crepitation/rhonchi Cardiovascular: Regular rate, Regular Rhythm, Normal S1, Normal S2, No murmurs Abdomen: Laparoscopic surgery ports and lower midline incision site dry with no discharge. Bowel Sounds good, Soft, Non Tender, Non-Distended : No renal angle tenderness. No suprapubic tenderness. Extremities: No edema, Capillary Refill Less than 3 Seconds Skin: No rashes, No breakdown Musculoskeletal: ROM full and intact. No Tenderness to Palpation of Joints or Extremities Neurological: Cranial nerves II-XII grossly intact, DTR 2+/4 and Symmetrical, Neuro grossly intact Psych/Mental Status: Flat affect Assessment & Plan Assessment/Plan (1) Acute lower gastrointestinal bleeding: (2) Anemia due to blood loss: PLAN: Plan This is a 62-year-old female is being admitted for acute lower GI bleed 1. Acute lower GI bleed with with acute blood loss anemia : Patient is being admitted in PCU. Her baseline hemoglobin runs around 10 to 11 g but dropped to 9 g today. She is A negative blood group. IV fluid resuscitation. Hemody namically, BP and heart rate in normal range. GI consulted. Plan for colonoscopy. IV pantoprazole 40 mg 1 dose now and then oral from tomorrow 11/24: Colonoscopy reported discontinuous nonbleeding ulcerated mucosa with no stigmata of recent bleeding. 2 sessile polyps in sigmoid colon and splenic flexure removed by hot snare. End-to-side colocolonic anastomosis characterized by hemorrhagic appearance, ulceration, friable mucosa with intact staple line. This was discussed with the patient and her mother near the bedside. No aspirin ibuprofen naproxen or other NSAIDs. Plavix from tomorrow a.m. as patient had 3 stents during last week of April. We will consider aspirin range of motion after 5 days. 1 dose of IV iron ordered. Hemoglobin dropped to 8.1 11/25: Patient had another bout of moderate amount of lower GI bleed. 1 unit of PRBC transfusion done. Repeat hemoglobin tomorrow AM. Discussed with the GI. Patient on regular diet. 2. Recent history of laparoscopic right hemicolectomy and adhesiolysis for hepatic flexure colon cancer with postop ileus: Currently patient passing flatus. ED physician Dr. Rossi discussed with Dr. Vasquez who consulted GI Dr. Suarez. Surgery is consulted. 11/24: Discussed with surgeon. Patient passing flatus. 11/25: Surgeons note reviewed. Colonoscopy showed significant fibrillatory of rectum with linear injuries undetermined etiology. Dr. Flood did not tolerate oral metronidazol/Proctofoam although he suggested. On discussion with GI, does not seem local ulcerative colitis but might have proctitis. 3. Type 2 diabetes mellitus with history of hypoglycemia: Glucose in [facility] is 159. Accu-Chek before meals and at bedtime coverage with sliding scale. Started on clear liquid diet 1800 ADA diet. 11/24: Glucose is controlled about 140-200. 4. Hypertension: Patient Home medications are amlodipine, carvedilol and lisinopril. Hold lisinopril and amlodipine but continue carvedilol with holding parameters. We will resume rest of antihypertensive later on BP is controlled. 5. Coronary artery status positive stents:: Continue statin but hold aspirin and Plavix. 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 Fernandez in [place]. Last cardiac stent was in last week of April 2022 less than 1 year. She had all 3 stents placed at one time. 6. Dyslipidemia on statin, hypothyroidism on Synthroid, and anxiety and depression on venlafaxine: Home medications reconciliation done. VTE prophylaxis: Bilateral SCDs. Pharmacological prophylaxis contraindicated. Living will/advanced directive/end of life care: Patient does not have living w ill or advanced directive. She does not have designated power of attorney at law for healthcare after discussion of benefits/risks procedures involved with full code, DNR CC arrest and DNR CC, the patient and her mother near the bedside opted for full code. Patient does want artificial life support including intubation, tube feed, ventilator and/chest compression, central venous catheter, vasopressor and DC shock if needed Charges/Coding Visit Charges Inpatient E&M: 88471 Subs Hosp L2
[2022-11-25 09:10] VITALS: BP 141/53; PULSE 72; RESP 16; TEMP 36.4; O2SAT 95
[2022-11-25] MEDS: Hydroxychloroquine 200 MG Tablet PO ×2 (10:21)
[2022-11-25] MEDS: Venlafaxine HCl 75 MG Tablet PO (10:21)
[2022-11-25] MEDS: Carvedilol 3.125 MG TABLET PO ×2 (10:21→22:16)
[2022-11-25] MEDS: Venlafaxine XR 150 MG Capsule PO (10:22)
[2022-11-25] MEDS: Pantoprazole Sodium 40 MG Tablet PO (10:22)
[2022-11-25 11:01] LABS: Bedside Glucose 167 mg/dL (74-106)
[2022-11-25 11:45] LABS: Bedside Glucose 134 mg/dL (74-106)
[2022-11-25 14:57] VITALS: BP 131/50; PULSE 74; RESP 16; TEMP 36.6; O2SAT 96
--- NOTE | 2022-11-25 15:09 | CHAPLAIN ---
Type of Pastoral Visit _x__ Initial Visit ___ Follow-up Visit ___ On-call Visit ___ General Patient Visit ___ Spiritual Assessment ___ Family Conference ___ Bereavement ___ Rapid Response ___ Code Blue ___ Other (describe below) Pastoral Care Referral From _x__ Patient ___ Family ___ Nurse ___ Physician ___ Play Therapist ___ Knowledge Management Consultant ___ Other (describe below) Sacrament/Intervention _x__ Active listening ___ Anointing ___ Pentecostalism ___ Bereavement ___ Communion ___ Guillermina exploration ___ ___ Life review _x__ Prayer ___ Reconciliation ___ Sacrament of Sick ___ Supportive presence ___ Wedding ___ Other (describe below) Pastoral Comments patient describes her recent health issues and hospitalizations; pt goal is to get home and complete the healing process; pt mother is with her for support; pt indicates no particular needs but would like a prayer to be given
[2022-11-25 15:41] LABS: Bedside Glucose 179 mg/dL (74-106)
--- NOTE | 2022-11-25 18:59 | CT_ITS ---
We are attempting to reach an attending provider to discuss findings. An addendum with communication details will be sent when the communication is complete. EXAM: CT ANGIOGRAPHY ABDOMEN AND PELVIS WITHOUT AND WITH INTRAVENOUS CONTRAST CLINICAL INDICATION: lower gi bleeding TECHNIQUE: Helically acquired angiography images were obtained of the abdomen and pelvis without and with intravenous contrast. This CT exam was performed using one or more of the following dose reduction techniques: automated exposure control, adjustment of the mA and/or kV according to patient size, and/or use of iterative reconstruction technique. This report was created using [employer] report generation technology. MIP reconstructed images were created and reviewed. CONTRAST: IV 100mL Isovue-370 RADIATION DOSE: CTDIvol = 30.25 mGy, DLP = 1056.22 mGy-cm. COMPARISON: November 15, 2022, postop exam with umbilical and supraumbilical incision and hemicolectomy of the proximal half of the colon, small bowel to the mid transverse colon anastomosis, prominent small bowel contents consistent with ileus or obstruction, and November 06, 2022 with suspected right colon mass at hepatic flexure. At the junction of the cervical spine. I has low T1 and there is still having pain or infectious device at the level of the medial neck pain chronic FINDINGS: VASCULATURE: AORTA: Mild-moderate atherosclerotic calcifications of the infrarenal aorta and mild calcifications of the proximal common iliac arteries, no aneurysm or dissection. CELIAC TRUNK AND MESENTERIC ARTERIES: Coarse calcification without narrowing in the SMA, no evidence of acute large vessel occlusion. RENAL ARTERIES: Mild coarse calcifications in proximal renal arteries, suspicion of at least moderate right renal artery stenosis in the proximal 1 cm. ILIAC ARTERIES: See above. PORTAL VEINS: Patent mesenteric and portal veins. LOWER THORAX: There are moderate calcifications in proximal to mid left circumflex coronary artery, and the left coronary artery bifurcation, and presumed stents in right coronary artery, the heart is not fully included. Slight groundglass opacities in the lung bases, probably minimal atelectasis. No significant pericardial effusion. ABDOMEN: LIVER: Unremarkable. Homogeneous. No focal mass. GALLBLADDER AND BILE DUCTS: Cholecystectomy. No intra- or extrahepatic biliary ductal dilation. PANCREAS: Unremarkable. No focal cystic or solid mass. SPLEEN: Unremarkable. Normal size without focal cystic or solid mass. ADRENALS: Unremarkable. No nodules. KIDNEYS AND URETERS: Unremarkable. Normal renal size and position. No hydronephrosis. STOMACH AND BOWEL: Partial colectomy. Mildly thick-walled appearance of small bowel and colon at the small bowel to the mid transverse colon anastomosis, no surrounding fluid collections. Trace mesenteric fluid on the right inferior to the anastomosis. Mild mesenteric adenopathy. Improved small bowel distention and increased colon contents, no evidence of a high-grade small bowel obstruction. Moderate fluid and gas in the residual transverse colon, moderate fluid in the rectosigmoid junction, mild gas and fluid in the proximal to mid sigmoid, collapsed rectum. Small irregular focus of what appears to be active intraluminal contrast extravasation in the proximal descending colon on axial images 42 through 44 and coronal images 63 through 58. PELVIS: APPENDIX: Appendix is not present. BLADDER: Unremarkable. REPRODUCTIVE: Unremarkable as visualized. No mass. ABDOMEN and PELVIS: INTRAPERITONEAL SPACE: Previously seen fluid in the right paracolic gutter and pelvis has almost completely resolved. No free air. BONES/JOINTS: Unremarkable. No suspicious lytic or blastic abnormality. SOFT TISSUES: Recent midline umbilical and supraumbilical incision. Mild fluid in the supraumbilical incision, increased. Multiple stable right renal cysts. No discrete abdominal or pelvic wall hernia. LYMPH NODES: See above. CT/CT ANGIO ABD&PEL W/O&W/DYE IMPRESSION: 1. Small actively intraluminally bleeding vessel in proximal descending colon. 2. No evidence of a high-grade arterial stenosis or occlusion. Patent major veins. Resolution of previously seen small bowel distention. Almost complete resolution of intra-abdominal and intrapelvic fluid. 3. Fluid and gas in the colon with slightly thick wall, cannot exclude very early or mild colitis but it is not convincing. Please correlate with any leukocytosis or diarrhea. 4. Mild and increased fluid in the inferior aspect of the supraumbilical incision. 5. Coronary artery and renal artery calcifications. Electronically Signed: Bertha Pope MD at 0:49 EST ,
--- NOTE | 2022-11-25 19:09 | PN_ITS ---
Subjective Subjective Patient had more episodes of bleeding today. Hemoglobin is 7.8. Objective Data Objective Data Vital Signs: Vital Signs Temp Pulse Resp BP Pulse Ox O2 Del Method 97.8 F 74 16 131/50 H 96 Room Air 11/25/22 14:57 11/25/22 14:57 11/25/22 14:57 11/25/22 14:57 11/25/22 14:57 11/25/22 14:57 Oxygen Delivery Method Room Air Weight: 177 lb 14.609 oz Body Mass Index (BMI) 26.8 Intake & Output: Intake and Output for Last 24 Hours 11/23/22 11/24/22 11/25/22 23:59 23:59 23:59 Intake Total 1330 / 1330 3144 / 3144 0 / 0 Output Total 200 / 200 Balance 1330 / 1330 3144 / 3144 -200 / -200 Medical Nutrition Assessment Dietitian: Malnutrition Criteria Met Start: 11/24/22 12:45 Freq: Status: Active Protocol: Document 11/24/22 12:45 AG (Rec: 11/24/22 12:45 AG [id number]) Nutrition Malnutrition Evidence of Malnutrition Exists Yes Malnutrition (severe): Acute Illness/Injury Evidenced By Suboptimal Energy Intake ( Severe),Weight Loss (Severe) Clinical Problem Acute Disease or Injury Related Malnutrition Etiology severe, acute malnutrition related to inadequate energy intake w/ increased energy needs d/t cancer Signs/Symptoms as evidenced by unintentional wt loss of 9.5#/5% < 2 weeks; estimated PO intake meeting < 50% of estimated energy needs x 5 days Status Active Problem Recommendation Dietitian Recommendations/Changes recommend advance diet as tolerated to regular/fiber restricted; ensure plus high protein 120mL 4x/day w/ medpass for additional calories/protein if consumed. Lab / Micro Data Result Diagrams: 11/25/22 05:15 11/25/22 05:15 Labs: Laboratory Results - last 24 hr 11/23/22 10:00: Crossmatch See Detail 11/24/22 23:48: POC Glucose 165 H 11/25/22 05:15: WBC 10.4, RBC 3.15 L, Hgb 7.8 L, Hct 26.8 L, MCV 85.1, MCH 24.8 L, MCHC 29.1 L, RDW Std Deviation 53.1 H, RDW Coeff of Emilio 17.0 H, Plt Count 393, MPV 10.0, Immature Gran % (Auto) 0.500, Neut % (Auto) 71.7 H, Lymph % (Auto) 16.9 L, [place] % (Auto) 7.3, Eos % (Auto) 2.6, Baso % (Auto) 1.0, Absolute Neuts (auto) 7.5, Absolute Lymphs (auto) 1.76, Nucleated RBC % 0 11/25/22 05:15: Sodium 143, Potassium 3.9, Chloride 111 H, Carbon Dioxide 26.0, Anion Gap 6, BUN 13, Creatinine 1.07 H, Estim Creat Clear Calc 54.99, Est GFR (MDRD) Af Amer 67, Est GFR (MDRD) Non-Af 55 L, BUN/Creatinine Ratio 12.1, Glucose 179 H, Calcium 8.5 11/25/22 05:57: POC Glucose 167 H 11/25/22 11:24: POC Glucose 134 H 11/25/22 15:20: POC Glucose 179 H Physical Exam Narrative Seen and examined. 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 Patient stated it was moderate amount, verified by nursing staff. Physical exam General: Alert, Oriented x3, Cooperative HEENT: Atraumatic, PERRLA, EOMI, Normocephalic Oral: Oral mucosa moist. No Gingival or Mucosal Lesions/ Ulcerations Neck: Supple, No JVD, Negative Carotid Bruits Lungs: Air entry diminished in bilateral lung bases. No crepitation/rhonchi Cardiovascular: Regular rate, Regular Rhythm, Normal S1, Normal S2, No murmurs Abdomen: Laparoscopic surgery ports and lower midline incision site dry with no discharge. Bowel Sounds good, Soft, Non Tender, Non-Distended : No renal angle tenderness. No suprapubic tenderness. Extremities: No edema, Capillary Refill Less than 3 Seconds Skin: No rashes, No breakdown Musculoskeletal: ROM full and intact. No Tenderness to Palpation of Joints or Extremities Neurological: Cranial nerves II-XII grossly intact, DTR 2+/4 and Symmetrical, Neuro grossly intact Psych/Mental Status: Flat affect Assessment & Plan Assessment/Plan (1) Acute lower gastrointestinal bleeding: (2) Anemia due to blood loss: PLAN: Plan This is a 62-year-old female is being admitted for acute lower GI bleed 1. Acute lower GI bleed with with acute blood loss anemia : Patient underwent colonoscopy and was discovered to have some excoriations around the anastomosis. I was told by surgery that that is normal healing from a recent bowel surgery. She also discovered at 2 adenomatous polyps were removed. And some mild healing linear ulcerations in the colon. I will order a CT angiography tonight. Likely repeat colonoscopy tomorrow. 2. Recent history of laparoscopic right hemicolectomy and adhesiolysis for hepatic flexure colon cancer with postop ileus: No plans for surgery at this time. Charges/Coding Visit Charges Inpatient E&M: 17787 Subs Hosp L3
[2022-11-25] MEDS: 0.9% Saline Lock 10 ML Syringe IV ×2 (19:45→22:17)
[2022-11-25] MEDS: Famotidine 200 MG/20 ML MDV 20 MG in 0.9% Normal Saline (Pres. free 8 ML 300 MG IV (19:46)
[2022-11-25] MEDS: DiphenhydrAMINE 50 MG/ML Syringe 25 MG IV (19:46)
[2022-11-25 20:20] VITALS: BP 134/56; PULSE 70; RESP 16; TEMP 37.1; O2SAT 96
[2022-11-25] MEDS: predniSONE 20 MG Tablet 40 MG PO (20:21)
[2022-11-25] MEDS: Hydrocortisone Sod Succinate 100 MG/2 ML Vial IV (22:15)
[2022-11-25] MEDS: Atorvastatin Calcium 20 MG Tablet PO (22:16)
[2022-11-25] MEDS: Bisacodyl 5 MG Tablet 20 MG PO (23:32)
[2022-11-25] MEDS: Polyethylene Glycol 3350 BOWEL PREP PO (23:33)
[2022-11-26] VITALS (14 sets, daily range): BP systolic 122–157; BP diastolic 58–68; PULSE 75–91; RESP 14–18; TEMP 36.6–37.3; O2SAT 93–100; BMI 26.3
[2022-11-26] MEDS: Insulin Lispro 100 UNIT/ML INSULN.PEN SC ×3 (00:10→17:03)
[2022-11-26] MEDS: Ondansetron 4 MG/2 ML Vial IV (00:22)
[2022-11-26] MEDS: 0.9% Saline Lock 10 ML Syringe IV (00:22)
[2022-11-26 00:30] LABS: Bedside Glucose 174 mg/dL (74-106)
[2022-11-26 03:06] LABS: Bedside Glucose 312 mg/dL (74-106)
--- NOTE | 2022-11-26 05:55 | EKG12_ITS ---
Test Reason : AM EKG Blood Pressure : / mmHG Vent. Rate : 075 BPM Atrial Rate : 075 BPM P-R Int : 192 ms QRS Dur : 146 ms QT Int : 430 ms P-R-T Axes : 029 -54 -19 degrees QTc Int : 480 ms Normal sinus rhythm Left axis deviation Right bundle branch block Minimal voltage criteria for LVH, may be normal variant ( R in aVL ) Inferior infarct , age undetermined-cannot be excluded Abnormal ECG Confirmed by SREEKANTH JACOB, MICAH ([id number]), news videotape editor OWEN PÉREZ ([id number]) on 11/27/2022 8:51:42 AM Referred By: Confirmed By:MICAH STACK MD
[2022-11-26 06:01] LABS: Bedside Glucose 292 mg/dL (74-106)
[2022-11-26 06:15] LABS: Absolute Lymphocyte Count 0.53 X10^3/uL (0.83-4.51); Absolute Neutrophil Count 9.6 X10^3/uL (2.0-7.7); Basophil# 0.06 X10^3/uL; Basophil% 0.6 % (0-1); Hematocrit 25.4 % (37-47); Hemoglobin 7.8 g/dL (12.0-15.0); Lymphocyte # 0.53 X10^3/ul (0.83-4.51); Lymphocyte % 5.1 % (19-41); Mean Corp Hgb Conc 30.7 g/dL (32-36); Mean Corpuscular Hgb 25.9 pg (27.0-32.0); Mean Corpuscular Volume 84.4 fL (81-99); Mean Platelet Vol. 9.6 fl (6.2-12.0); Monocyte# 0.08 X10^3/uL; Monocyte% 0.8 % (0-10); NRBC Flagged by Analyzer 0 % (0-5); Neutrophil # 9.64 X10^3/uL (2.7-7.7); Neutrophil % 92.4 % (47-70); POSITIVE DIFFERENTIAL YES; Platelet Count 394 K/mm3 (150-450); RBC Distribution Width CV 16.6 % (11.6-14.6); RBC Distribution Width SD 51.1 fl (35.1-43.9); Red Blood Count 3.01 M/mm3 (4.2-5.4); White Blood Count 10.4 K/mm3 (4.4-11.0)
[2022-11-26 06:25] LABS: Differential Indicated SCAN CRITERIA MET
[2022-11-26 06:26] LABS: Prothrombin Time (Protime)PT. 13.3 SECONDS (11.7-14.9)
[2022-11-26 06:27] LABS: Partial Thromboplast Time 30.7 Seconds (24.1-36.2)
[2022-11-26 06:33] LABS: Differential Comment SCANNED
[2022-11-26 06:36] LABS: Anion Gap 7 (5-15); BUN 16 mg/dL (7-18); BUN/Creat Ratio 13.7 RATIO (10-20); Calcium,Total 8.7 mg/dL (8.5-10.1); Chloride 108 mmol/L (98-107); Creatinine, Serum 1.17 mg/dL (0.55-1.02); EST Glomerular Filtration Rate 50 mL/min (>60); Est Glom Filt Rate - Afr Amer 60 mL/min (>60); Estimated Creatinine Clearance 50.29 ml/min; Glucose 280 mg/dL (74-106); Potassium 4.6 mmol/L (3.5-5.1); Sodium Level 139 mmol/L (136-145)
[2022-11-26 06:59] LABS: Thyroid Stim Hormone (TSH) 0.67 uIU/mL (0.358-3.74)
[2022-11-26 07:48] LABS: Hemoglobin A1c 5.9 % (3.8-5.6)
[2022-11-26] MEDS: Carvedilol 3.125 MG TABLET PO ×2 (10:15→21:08)
[2022-11-26] MEDS: Levothyroxine 88 MCG Tablet PO (10:18)
--- NOTE | 2022-11-26 10:21 | DCINST_ITS ---
Discharge Instructions Follow Up Care Test Results: Test results from this visit will be discussed in further detail at your follow- up appointment, if applicable. Discharge Plan Admission Admit Date/Time: 11/23/22 11:26 Attending Provider: Robert Reece Primary Care Provider: Kimi López Consulting Providers: Angi Vasquez Discharge Orders/Prescriptions Prescriptions: No Action amlodipine 5 mg tablet 5 mg PO LUNCH aspirin [Adult Aspirin Regimen] 81 mg tablet,delayed release (DR/EC) 81 mg PO DAILY famotidine 40 mg tablet 40 mg PO QHS nystatin [Nystop] 100,000 unit/gram powder 100,000 gm topical PRN PRN (Reason: Skin Cleansing) Label Comments: APPLY TOPICALLY EVERY 8 HOURS ibuprofen 800 mg tablet 800 mg PO Q6H PRN PRN (Reason: Pain) Label Comments: TAKE 1 TABLET BY MOUTH TWICE DAILY NEEDED FOR MILD PAIN [id number]-cod [id number] mg capsule 1 cap PO Q4H PRN (Reason: Pain) valacyclovir [Valtrex] 1 gram tablet 1,000 mg PO DAILY PRN (Reason: outbreak) hyoscyamine sulfate 0.125 mg tablet 0.125 mg PO BID-QID PRN (Reason: Cough) biotin 5,000 mcg tablet,disintegrating 10,000 mcg PO DAILY vitamin B complex [B Complex-Vitamin B12] Tablet 1 tab PO DAILY lisinopril 5 mg tablet 5 mg PO QHS venlafaxine 75 mg tablet 75 mg PO DAILY glipizide 10 mg tablet extended release 24hr 10 mg PO BID prednisone 5 mg tablet 5 mg PO DAILY venlafaxine [Effexor XR] 150 mg capsule,extended release 24hr 150 mg PO DAILY clopidogrel 75 mg tablet 75 mg PO DAILY carvedilol 3.125 mg tablet 3.125 mg PO BID levothyroxine [Euthyrox] 88 mcg tablet 88 mcg PO DAILY rosuvastatin [Crestor] 10 mg Tablet 10 mg PO QHS ondansetron HCl 8 mg tablet 8 mg PO Q6H hydroxychloroquine 200 mg tablet 200 mg PO BID Qty: 60 0RF Referrals / Follow Up: Kimi López MD [Primary Care Provider] -
[2022-11-26 10:40] LABS: Bedside Glucose 185 mg/dL (74-106)
[2022-11-26] MEDS: Lactated Ringers 1,000 ML 15 ML IV (10:40)
--- NOTE | 2022-11-26 10:42 | PCM.PN.HOSP ---
Reason for Visit Reason for Visit: Diagnoses Iron deficiency anemia secondary to blood loss (chronic) (11/23/22) Gastrointestinal hemorrhage, unspecified (11/23/22) Subjective Subjective Follow-up for acute severe lower GI bleed and severe anemia. Patient had continuous large amount of bleeding from yesterday morning, evening and night and then today in the morning. Patient was taken to endoscopy suite for urgent colonoscopy. Objective Data Objective Data Vital Signs: Vital Signs Temp Pulse Resp BP Pulse Ox O2 Del Method 98.7 F 75 14 122/59 H 98 Room Air 11/26/22 10:11 11/26/22 10:11 11/26/22 10:11 11/26/22 10:11 11/26/22 10:11 11/26/22 10:11 Oxygen Delivery Method Room Air Weight: 173 lb 4.533 oz Body Mass Index (BMI) 26.3 Intake & Output: Intake and Output for Last 24 Hours 11/24/22 11/25/22 11/26/22 23:59 23:59 23:59 Intake Total 3144 / 3144 10 / 10 Output Total 200 / 200 Balance 3144 / 3144 -190 / -190 Medical Nutrition Assessment Dietitian: Malnutrition Criteria Met Start: 11/24/22 12:45 Freq: Status: Active Protocol: Document 11/24/22 12:45 AG (Rec: 11/24/22 12:45 AG [id number]) Nutrition Malnutrition Evidence of Malnutrition Exists Yes Malnutrition (severe): Acute Illness/Injury Evidenced By Suboptimal Energy Intake ( Severe),Weight Loss (Severe) Clinical Problem Acute Disease or Injury Related Malnutrition Etiology severe, acute malnutrition related to inadequate energy intake w/ increased energy needs d/t cancer Signs/Symptoms as evidenced by unintentional wt loss of 9.5#/5% < 2 weeks; estimated PO intake meeting < 50% of estimated energy needs x 5 days Status Active Problem Recommendation Dietitian Recommendations/Changes recommend advance diet as tolerated to regular/fiber restricted; ensure plus high protein 120mL 4x/day w/ medpass for additional calories/protein if consumed. Lab / Micro Data Result Diagrams: 11/26/22 05:45 11/26/22 05:45 Labs: Laboratory Results - last 24 hr 11/25/22 05:57: POC Glucose 167 H 11/25/22 11:24: POC Glucose 134 H 11/25/22 15:20: POC Glucose 179 H 11/26/22 00:09: POC Glucose 174 H 11/26/22 02:42: POC Glucose 312 H 11/26/22 05:36: POC Glucose 292 H 11/26/22 05:45: WBC 10.4, RBC 3.01 L, Hgb 7.8 L, Hct 25.4 L, MCV 84.4, MCH 25.9 L, MCHC 30.7 L D, RDW Std Deviation 51.1 H, RDW Coeff of [place]im[place] 16.6 H, Plt Count 394, MPV 9.6, Immature Gran % (Auto) 1.100 H, Neut % (Auto) 92.4 H, Lymph % (Auto) 5.1 L, [place] % (Auto) 0.8, Eos % (Auto) 0.0, Baso % (Auto) 0.6, Absolute Neuts (auto) 9.6 H, Absolute Lymphs (auto) 0.53 L, Nucleated RBC % 0, Differential Comment SCANNED 11/26/22 05:45: Sodium 139, Potassium 4.6, Chloride 108 H, Carbon Dioxide 24.0, Anion Gap 7, BUN 16, Creatinine 1.17 H, Estim Creat Clear Calc 50.29, Est GFR (MDRD) Af Amer 60, Est GFR (MDRD) Non-Af 50 L, BUN/Creatinine Ratio 13.7, Glucose 280 H, Calcium 8.7 11/26/22 05:45: PT 13.3, INR 1.0, APTT 30.7 11/26/22 05:45: TSH 0.67 11/26/22 05:45: Hemoglobin A1c 5.9 H 11/26/22 10:22: POC Glucose 185 H Radiography Diagnostic Testing: Radiology Impression Abdomen/Pelvis CTA 11/25/22 18:59 IMPRESSION: 1. Small actively intraluminally bleeding vessel in proximal descending colon. 2. No evidence of a high-grade arterial stenosis or occlusion. Patent major veins. Resolution of previously seen small bowel distention. Almost complete resolution of intra-abdominal and intrapelvic fluid. 3. Fluid and gas in the colon with slightly thick wall, cannot exclude very early or mild colitis but it is not convincing. Please correlate with any leukocytosis or diarrhea. 4. Mild and increased fluid in the inferior aspect of the supraumbilical incision. 5. Coronary artery and renal artery calcifications. Electronically Signed: Bertha Pope MD at 0:49 EST , ADDENDUM: 11/26/22 0121 IMPRESSION: 1. Small actively intraluminally bleeding vessel in proximal descending colon. 2. No evidence of a high-grade arterial stenosis or occlusion. Patent major veins. Resolution of previously seen small bowel distention. Almost complete resolution of intra-abdominal and intrapelvic fluid. 3. Fluid and gas in the colon with slightly thick wall, cannot exclude very early or mild colitis but it is not convincing. Please correlate with any leukocytosis or diarrhea. 4. Mild and increased fluid in the inferior aspect of the supraumbilical incision. 5. Coronary artery and renal artery calcifications. N.B. : The above Results were Read Back by Bertha Pope MD to MD Michelle, and understanding confirmed on 11/26/2022 01:14:52 (ET). Electronically Signed: Bertha Pope MD at 0:49 EST , Physical Exam Narrative Seen and examined. Severe lower GI bleed. Patient returned from endoscopy suite. Physical exam General: Alert, Oriented x3, Cooperative HEENT: Very pale looking conjunctive. Atraumatic, PERRLA, EOMI, Normocephalic Oral: Oral mucosa moist. No Gingival or Mucosal Lesions/ Ulcerations Neck: Supple, No JVD, Negative Carotid Bruits Lungs: Air entry diminished in bilateral lung bases. No crepitation/rhonchi Cardiovascular: sinus rhythm in 90s., Normal S1, Normal S2, No murmurs Abdomen: Laparoscopic surgery ports and lower midline incision site dry with no discharge. Bowel Sounds good, Soft, Non Tender, Non-Distended : No renal angle tenderness. No suprapubic tenderness. Extremities: No edema, Capillary Refill Less than 3 Seconds Skin: No rashes, No breakdown Musculoskeletal: ROM full and intact. No Tenderness to Palpation of Joints or Extremities Neurological: Cranial nerves II-XII grossly intact, DTR 2+/4 and Symmetrical, Neuro grossly intact Psych/Mental Status: Flat affect Assessment & Plan Assessment/Plan (1) Acute lower gastrointestinal bleeding: (2) Anemia due to blood loss: PLAN: Plan This is a 62-year-old female is being admitted for acute lower GI bleed 1. Acute lower GI bleed with with acute blood loss anemia : Patient is being admitted in PCU. Her baseline hemoglobin runs around 10 to 11 g but dropped to 9 g today. She is A negative blood group. IV fluid resuscitation. Hemodynamically, BP and heart rate in normal range. GI consulted. Plan for colonoscopy. IV pantoprazole 40 mg 1 dose now and then oral from tomorrow 11/24: Colonoscopy reported discontinuous nonbleeding ulcerated mucosa with no stigmata of recent bleeding. 2 sessile polyps in sigmoid colon and splenic flexure removed by hot snare. End-to-side colocolonic anastomosis characterized by hemorrhagic appearance, ulceration, friable mucosa with intact staple line. This was discussed with the patient and her mother near the bedside. No aspirin ibuprofen naproxen or other NSAIDs. Plavix from tomorrow a.m. as patient had 3 stents during last week of April. We will consider aspirin range of motion after 5 days. 1 dose of IV iron ordered. Hemoglobin dropped to 8.1 11/25: Patient had another bout of moderate amount of lower GI bleed. 1 unit of PRBC transfusion done. Repeat hemoglobin tomorrow AM. Discussed with the GI. Patient on regular diet. 11/26: Patient had severe lower GI bleed. Hemoglobin 7.8/25%. Patient was urgently taken to colonoscopy. Patent end-to-side ileocolonic anastomosis with healthy mucosa. Single bleeding colonic angiodysplastic lesion treated with heater probe and clip was placed. Blood in and around RS colon. Clinical monitoring for GI bleed. 2. Recent history of laparoscopic right hemicolectomy and adhesiolysis for hepatic flexure colon cancer with postop ileus: Currently patient passing flatus. ED physician Dr. Rossi discussed with Dr. Vasquez who consulted GI Dr. Suarez. Surgery is consulted. 11/24: Discussed with surgeon. Patient passing flatus. 11/25: Surgeons note reviewed. Colonoscopy showed significant fibrillatory of rectum with linear injuries undetermined etiology. Dr. Cebul did not tolerate oral metronidazol/Proctofoam although he suggested. On discussion with GI, does not seem local ulcerative colitis but might have proctitis. 3. Type 2 diabetes mellitus with history of hypoglycemia: Glucose in BMP is 159. Accu-Chek before meals and at bedtime coverage with sliding scale. Started on clear liquid diet 1800 ADA diet. 11/24: Glucose is controlled about 140-200. 4. Hypertension: Patient Home medications are amlodipine, carvedilol and lisinopril. Hold lisinopril and amlodipine but continue carvedilol with holding parameters. We will resume rest of antihypertensive later on BP is controlled. 5. Coronary artery status positive stents:: Continue statin but hold aspirin and Plavix. 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 Fernandez in [place]. Last cardiac stent was in last week of April 2022 less than 1 year. She had all 3 stents placed at one time. 6. Dyslipidemia on statin, hypothyroidism on Synthroid, and anxiety and depression on venlafaxine: Home medications reconciliation done. VTE prophylaxis: Bilateral SCDs. Pharmacological prophylaxis contraindicated. Living will/advanced directive/end of life care: Patient does not have living will or advanced directive. She does not have designated power of research attorney for healthcare after discussion of benefits/risks procedures involved with full code, DNR CC arrest and DNR CC, the patient and her mother near the bedside opted for full code. Patient does want artificial life support including intubation, tube feed, ventilator and/chest compression, central venous catheter, vasopressor and DC shock if needed Charges/Coding Visit Charges Inpatient E&M: 43696 Subs Hosp L3
[2022-11-26] MEDS: Epinephrine (1 mg/ml) 1 MG/ML VIAL (11:46)
[2022-11-26] MEDS: 0.9% Normal Saline (Pres. free 10 ML Vial (11:48)
--- NOTE | 2022-11-26 12:13 | OP.CCLET_ITS ---
11/26/2022 Kimi López [facility] [address] [place] [address] Re : Colonoscopy procedure for Lisbeth Craven Dear Dr. López This procedure was performed on Saturday, November 26, 2022. My impressions and recommendations are as follows: Impressions : - Patent end-to-side ileo-colonic anastomosis, characterized by healthy appearing mucosa. - A single bleeding colonic angiodysplastic lesion. Injected. Treated with a heater probe. Clip was placed. Tattooed. - Blood at the anus and in the recto-sigmoid colon. - No specimens collected. Recommendations : - Discharge patient to home. - Resume previous diet. - Continue present medications. - Repeat colonoscopy in 1 year for surveillance. My findings are described in the full procedure note, which is enclosed. If I can be of further assistance, please feel free to contact me at . Sincerely, Shaun Suarez, 11/26/2022 12:12:16 PM This report has been signed electronically.
--- NOTE | 2022-11-26 12:13 | OP.COLON_ITS ---
Patient Name: Lisbeth Craven Procedure Date: 11/26/2022 11:22 AM Date of : 1960 Age: 62 Procedure: Colonoscopy Indications: Hematochezia Providers: Shaun Suarez DO Medicines: Monitored Anesthesia Care Patient Profile: This is a 62 year old female. Refer to note in patient chart for documentation of history and physical. Last Colonoscopy: 1 week ago. Complications: No immediate complications. Procedure: Pre-Anesthesia Assessment: - Prior to the procedure, a History and Physical was performed, and patient medications and allergies were reviewed. The patient is competent. The risks and benefits of the procedure and the sedation options and risks were discussed with the patient. All questions were answered and informed consent was obtained. Patient identification and proposed procedure were verified by the physician in the pre-procedure area. Mental Status Examination: alert and oriented. Airway Examination: normal oropharyngeal airway and neck mobility. Respiratory Examination: clear to auscultation. CV Examination: normal. Prophylactic Antibiotics: The patient does not require prophylactic antibiotics. Prior Anticoagulants: The patient has taken no previous anticoagulant or antiplatelet agents. ASA Grade Assessment: II - A patient with mild systemic disease. After reviewing the risks and benefits, the patient was deemed in satisfactory condition to undergo the procedure. The anesthesia plan was to use monitored anesthesia care (MAC). Immediately prior to administration of medications, the patient was re-assessed for adequacy to receive sedatives. The heart rate, respiratory rate, oxygen saturations, blood pressure, adequacy of pulmonary ventilation, and response to care were monitored throughout the procedure. The physical status of the patient was re-assessed after the procedure. After I obtained informed consent, the scope was passed under direct vision. Throughout the procedure, the patient's blood pressure, pulse, and oxygen saturations were monitored continuously. The colonoscope was introduced through the anus and advanced to the ileocolonic anastomosis. The colonoscopy was performed without difficulty. The patient tolerated the procedure well. The quality of the bowel preparation was good. Scope In: 11:27:03 AM Scope Out: 11:59:26 AM Total Procedure Duration Time 0 hours 32 minutes 23 seconds Findings: The perianal and digital rectal examinations were normal. There was evidence of a prior end-to-side ileo-colonic anastomosis in the transverse colon. This was patent and was characterized by healthy appearing mucosa. The anastomosis was traversed. There were 2 previous polypectomy sites that were clean-based without any stigmata of recent bleeding. A single large localized angiodysplastic lesion with bleeding was found in the descending colon. Area was successfully injected with 10 mL of a 1:10,000 solution of epinephrine for drug delivery. Coagulation for hemostasis using heater probe was successful. For hemostasis, one hemostatic clip was successfully placed. There was no bleeding at the end of the procedure. Area was tattooed with an injection of 3 mL of Cira ink. Red blood was found at the anus and in the recto-sigmoid colon. Impression: - Patent end-to-side ileo-colonic anastomosis, characterized by healthy appearing mucosa. - A single bleeding colonic angiodysplastic lesion. Injected. Treated with a heater probe. Clip was placed. Tattooed. - Blood at the anus and in the recto-sigmoid colon. - No specimens collected. Recommendation: - Discharge patient to home. - Resume previous diet. - Continue present medications. - Repeat colonoscopy in 1 year for surveillance. Procedure Code(s): --- Professional --- 54482, Colonoscopy, flexible; with control of bleeding, any method CPT copyright 2017 [employer]. All rights reserved. The codes documented in this report are preliminary and upon cushion gum applicator review may be revised to meet current compliance requirements. Shaun Suarez DO 11/26/2022 12:12:16 PM This report has been signed electronically. Number of Addenda: 0 Note Initiated On: 11/26/2022 11:22 AM
[2022-11-26 13:50] LABS: Bedside Glucose 204 mg/dL (74-106)
[2022-11-26] MEDS: Venlafaxine XR 150 MG Capsule PO (14:35)
[2022-11-26] MEDS: Pantoprazole Sodium 40 MG Tablet PO (14:35)
[2022-11-26] MEDS: Potassium Chloride Oral Tablet 20 MEQ 40 MEQ PO (14:35)
[2022-11-26] MEDS: Hydroxychloroquine 200 MG Tablet PO ×2 (14:36→17:04)
[2022-11-26] MEDS: Venlafaxine HCl 75 MG Tablet PO (14:36)
[2022-11-26] MEDS: Insulin Glargine-YFGN 100 UNIT/ML Pen 8 UNIT SC (17:03)
[2022-11-26] MEDS: Clopidogrel Bisulfate 75 MG Tablet PO (17:04)
[2022-11-26 17:30] LABS: Bedside Glucose 206 mg/dL (74-106)
[2022-11-26] MEDS: Atorvastatin Calcium 20 MG Tablet PO (21:08)
[2022-11-27 00:15] LABS: Bedside Glucose 159 mg/dL (74-106)
[2022-11-27 03:00] VITALS: BP 121/50; PULSE 66; RESP 16; TEMP 36.8; O2SAT 94
[2022-11-27] MEDS: Levothyroxine 88 MCG Tablet PO (06:18)
[2022-11-27 06:50] LABS: Bedside Glucose 129 mg/dL (74-106)
--- NOTE | 2022-11-27 07:00 | PCM.PROGNOTE ---
Subjective Subjective Patient had more episodes of bleeding today.? Hemoglobin is 7.8. Objective Data Objective Data Vital Signs: Vital Signs Temp Pulse Resp BP Pulse Ox O2 Del Method 98.3 F 76 14 141/56 H 96 Room Air 11/27/22 08:32 11/27/22 08:32 11/27/22 08:32 11/27/22 08:32 11/27/22 08:32 11/27/22 09:34 Oxygen Delivery Method Room Air Weight: 171 lb 11.841 oz Body Mass Index (BMI) 26.3 Intake & Output: Intake and Output for Last 24 Hours 11/25/22 11/26/22 11/27/22 23:59 23:59 23:59 Intake Total 10 / 10 941.25 / 941.25 400 / 400 Output Total 200 / 200 0 / 0 Balance -190 / -190 941.25 / 941.25 400 / 400 Lab / Micro Data Result Diagrams: 11/26/22 05:45 11/26/22 05:45 Labs: Laboratory Results - last 24 hr 11/23/22 10:00: Crossmatch See Detail 11/26/22 16:57: POC Glucose 206 H 11/26/22 23:55: POC Glucose 159 H 11/27/22 06:20: POC Glucose 129 H 11/27/22 11:31: POC Glucose 208 H Physical Exam Narrative Seen and examined. Patient had a small amount/insignificant residual blood in the stool yesterday evening and 1 in the morning. Hemodynamically heart rate and blood pressure in normal range. No hypoxia or tachypnea. No abdominal pain. Patient is ready to go home. Physical exam General: Alert, Oriented x3, Cooperative HEENT: Very pale looking conjunctive. Atraumatic, PERRLA, EOMI, Normocephalic Oral: Oral mucosa moist. No Gingival or Mucosal Lesions/ Ulcerations Neck: Supple, No JVD, Negative Carotid Bruits Lungs: Air entry diminished in bilateral lung bases. No crepitation/rhonchi Cardiovascular: sinus rhythm in 90s., Normal S1, Normal S2, No murmurs Abdomen: Laparoscopic surgery ports and lower midline incision site dry with no discharge. Bowel Sounds good, Soft, Non Tender, Non-Distended : No renal angle tenderness. No suprapubic tenderness. Extremities: No edema, Capillary Refill Less than 3 Seconds Skin: No rashes, No breakdown Musculoskeletal: ROM full and intact. No Tenderness to Palpation of Joints or Extremities Neurological: Cranial nerves II-XII grossly intact, DTR 2+/4 and Symmetrical, Neuro grossly intact Psych/Mental Status: Flat affect Assessment & Plan Assessment/Plan (1) Acute lower gastrointestinal bleeding: (2) Anemia due to blood loss: PLAN: Plan This is a 62-year-old female is being admitted for acute lower GI bleed 1. Acute lower GI bleed with with acute blood loss anemia : Patient is being admitted in PCU. Her baseline hemoglobin runs around 10 to 11 g but dropped to 9 g today. She is A negative blood group. IV fluid resuscitation. Hemodynamically, BP and heart rate in normal range. Plan for colonoscopy. IV pantoprazole 40 mg 1 dose now and then oral from tomorrow 11/24: Colonoscopy reported discontinuous nonbleeding ulcerated mucosa with no stigmata of recent bleeding. 2 sessile polyps in sigmoid colon and splenic flexure removed by hot snare. End-to-side colocolonic anastomosis characterized by hemorrhagic appearance, ulceration, friable mucosa with intact staple line. This was discussed with the patient and her mother near the bedside. No aspirin ibuprofen naproxen or other NSAIDs. Plavix from tomorrow a.m. as patient had 3 stents during last week of April. We will consider aspirin range of motion after 5 days. 1 dose of IV iron ordered. Hemoglobin dropped to 8.1 11/25: Patient had another bout of moderate amount of lower GI bleed. 1 unit of PRBC transfusion done. Repeat hemoglobin tomorrow AM. Patient on regular diet. 11/26: Patient had severe lower GI bleed. Hemoglobin 7.8/25%. Patient was urgently taken to colonoscopy. Patent end-to-side ileocolonic anastomosis with healthy mucosa. Single bleeding colonic angiodysplastic lesion treated with heater probe and clip was placed. Blood in and around RS colon. 2. Recent history of laparoscopic right hemicolectomy and adhesiolysis for hepatic flexure colon cancer with postop ileus: Currently patient passing flatus. ED physician Dr. Rossi discussed with Dr. Vasquez who consulted GI Dr. Suarez. Surgery is consulted. 11/24: Discussed with surgeon. Patient passing flatus. 11/25: Surgeons note reviewed. Colonoscopy showed significant fibrillatory of rectum with linear injuries undetermined etiology. Dr. Flood did not tolerate oral metronidazol/Proctofoam although he suggested. 3. Type 2 diabetes mellitus with history of hypoglycemia: Glucose in BMP is 159. Accu-Chek before meals and at bedtime coverage with sliding scale. Started on clear liquid diet 1800 ADA diet. 11/24: Glucose is controlled about 140-200. 4. Hypertension: Patient Home medications are amlodipine, carvedilol and lisinopril. Hold lisinopril and amlodipine but continue carvedilol with holding parameters. We will resume rest of antihypertensive later on BP is controlled. 5. Coronary artery status positive stents:: Continue statin but hold aspirin and Plavix. 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 Fernandez in [place]. Last cardiac stent was in last week of April 2022 less than 1 year. She had all 3 stents placed at one time. 6. Dyslipidemia on statin, hypothyroidism on Synthroid, and anxiety and depression on venlafaxine: Home medications reconciliation done. Charges/Coding Visit Charges Inpatient E&M: 10680 Subs Hosp L3
[2022-11-27 07:35] VITALS: O2SAT 98
[2022-11-27 08:32] VITALS: BP 141/56; PULSE 76; RESP 14; TEMP 36.8; O2SAT 96
[2022-11-27] MEDS: Pantoprazole Sodium 40 MG Tablet PO (08:36)
[2022-11-27] MEDS: Venlafaxine HCl 75 MG Tablet PO (08:36)
[2022-11-27] MEDS: Hydroxychloroquine 200 MG Tablet PO (08:36)
[2022-11-27] MEDS: Venlafaxine XR 150 MG Capsule PO (08:36)
[2022-11-27] MEDS: Carvedilol 3.125 MG TABLET PO (08:36)
[2022-11-27] MEDS: Clopidogrel Bisulfate 75 MG Tablet PO (08:36)
--- NOTE | 2022-11-27 10:04 | DCINST_ITS ---
Discharge Instructions Diet Discharge Diet: Soft diet (Soft regular diet ) Activity Discharge Activity: Return to Normal Activity Weight Bearing Status: Weight bearing as tolerated Dressing / Incision Call your doctor if you observe: Fever of 101 or Higher, Coldness, Increased Pain, Numbness or Tingling, Change in Color, Inability to urinate, Inability to have a bowel movement, Using more than 1 pad per hour, Shortness of breath, Dizziness, Fainting spells, Swelling in the ankles, Chest pain, Prolonged hiccupping, Increased palpitations (irregular heartbeat) and Calf discomfort Follow Up Care When: IN 2 WEEKS Test Results: Test results from this visit will be discussed in further detail at your follow- up appointment, if applicable. Discharge Plan Admission Admit Date/Time: 11/23/22 11:26 Primary Reason for Your Visit: Lower GI bleed, recent right hemicolectomy Attending Provider: Robert Reece Primary Care Provider: Kimi López Consulting Providers: Angi Vasquez Discharge Orders/Prescriptions Prescriptions: New sennosides-docusate sodium [Stool Softener-Stimulant Laxat] 8.6-50 mg Tablet 2 tab PO BID PRN PRN (Reason: Constipation) Qty: 0 0RF pantoprazole 40 mg Tablet,Delayed Release (Dr/Ec) 40 mg PO DAILY 30 Days Qty: 30 1RF ferrous sulfate 325 mg (65 mg iron) tablet,delayed release (DR/EC) 325 mg PO QODAY 60 Days Qty: 30 1RF ascorbate calcium (vitamin C) 500 mg tablet 1 g PO DAILY Qty: 30 2RF Continued amlodipine 5 mg tablet 5 mg PO LUNCH nystatin [Nystop] 100,000 unit/gram powder 100,000 gm topical PRN PRN (Reason: Skin Cleansing) Label Comments: APPLY TOPICALLY EVERY 8 HOURS [id number]-znjqkxmewp-pth-cod [id number] mg capsule 1 cap PO Q4H PRN (Reason: Pain) valacyclovir [Valtrex] 1 gram tablet 1,000 mg PO DAILY PRN (Reason: outbreak) hyoscyamine sulfate 0.125 mg tablet 0.125 mg PO BID-QID PRN (Reason: Cough) biotin 5,000 mcg tablet,disintegrating 10,000 mcg PO DAILY vitamin B complex [B Complex-Vitamin B12] Tablet 1 tab PO DAILY lisinopril 5 mg tablet 5 mg PO QHS venlafaxine 75 mg tablet 75 mg PO DAILY glipizide 10 mg tablet extended release 24hr 10 mg PO BID venlafaxine [Effexor XR] 150 mg capsule,extended release 24hr 150 mg PO DAILY clopidogrel 75 mg tablet 75 mg PO DAILY carvedilol 3.125 mg tablet 3.125 mg PO BID levothyroxine [Euthyrox] 88 mcg tablet 88 mcg PO DAILY rosuvastatin [Crestor] 10 mg Tablet 10 mg PO QHS ondansetron HCl 8 mg tablet 8 mg PO Q6H hydroxychloroquine 200 mg tablet 200 mg PO BID Qty: 60 0RF Held aspirin [Adult Aspirin Regimen] 81 mg tablet,delayed release (DR/EC) 81 mg PO DAILY Hold Instructions: Hold for 5 days. Discontinued famotidine 40 mg tablet 40 mg PO QHS ibuprofen 800 mg tablet 800 mg PO Q6H PRN PRN (Reason: Pain) Label Comments: TAKE 1 TABLET BY MOUTH TWICE DAILY NEEDED FOR MILD PAIN prednisone 5 mg tablet 5 mg PO DAILY Referrals / Follow Up: Kimi López MD [Primary Care Provider] - 12/04/22 1:30 pm Golden Flood MD [Med Staff - Active Staff] - Within 2 Weeks Shaun Suarez DO [Med Staff - Active Staff] - Within 2 Weeks Disposition Disposition (needs filled in before D/C Order can be placed): Home, Self Care
--- NOTE | 2022-11-27 10:14 | CASEMGMT ---
SALLY GARCIA updated the patient is requesting assistance in finding a filler shaker. SALLY GARCIA called Dr. Stevens's office and they do not accept [facility]. SALLY GARCIA went to [facility] web site and searched for filler shaker in [place]. Patient provided with list. Patient also provided with [facility] Physician Directory. Patient had no further questions or concerns at this time.
--- NOTE | 2022-11-27 10:49 | PCM.DC.SUM ---
Providers Date of Admission: 11/23/22 Date of Discharge: 11/27/22 Primary Care Physician: Dr. Kimi López MD Consultations 11/23/22 12:45 Consult: Gastroenterology Routine Consulting Provider: [facility] Reason for Consult: Lower GI Bleed EMERGENT Consult: No Notified: Yes Date Notified: 11/23/22 Time Notified: 12:24 Method of Notification: Verbal 11/23/22 13:11 Consult: General Surgery Routine Consulting Provider: Angi Vasquez Reason for Consult: lower gi bleed, recent lap hemicolectomy EMERGENT Consult: No Notified: Yes Date Notified: 11/23/22 Time Notified: 12:12 Method of Notification: ED Physician Initiated Reason For Visit: LOWER GI BLEED Diagnosis Discharge Diagnosis (1) Acute lower gastrointestinal bleeding: Status: Acute Code(s): K92.2 - Gastrointestinal hemorrhage, unspecified (2) Anemia due to blood loss: Status: Acute Code(s): D50.0 - Iron deficiency anemia secondary to blood loss (chronic) Plan This is a 62-year-old female is being admitted for acute lower GI bleed 1. Acute lower GI bleed with with acute blood loss anemia : Patient is being admitted in PCU. Her baseline hemoglobin runs around 10 to 11 g but dropped to 9 g today. She is A negative blood group. IV fluid resuscitation. Hemodynamically, BP and heart rate in normal range. GI consulted. Plan for colonoscopy. IV pantoprazole 40 mg 1 dose now and then oral from tomorrow 11/24: Colonoscopy reported discontinuous nonbleeding ulcerated mucosa with no stigmata of recent bleeding. 2 sessile polyps in sigmoid colon and splenic flexure removed by hot snare. End-to-side colocolonic anastomosis characterized by hemorrhagic appearance, ulceration, friable mucosa with intact staple line. This was discussed with the patient and her mother near the bedside. No aspirin ibuprofen naproxen or other NSAIDs. Plavix from tomorrow a.m. as patient had 3 stents during last week of April. We will consider aspirin range of motion after 5 days. 1 dose of IV iron ordered. Hemoglobin dropped to 8.1 11/25: Patient had another bout of moderate amount of lower GI bleed. 1 unit of PRBC transfusion done. Repeat hemoglobin tomorrow AM. Discussed with the GI. Patient on regular diet. 11/26: Patient had severe lower GI bleed. Hemoglobin 7.8/25%. Patient was urgently taken to colonoscopy. Patent end-to-side ileocolonic anastomosis with healthy mucosa. Single bleeding colonic angiodysplastic lesion treated with heater probe and clip was placed. Blood in and around RS colon. Clinical monitoring for GI bleed. 11/27:Patient has small amount of residual bloody stool yesterday and in the morning. No major bleed. Patient is discharged on Protonix, ferrous sulfate and ascorbic acid. Advised to follow-up with Dr. Golden Flood/Clarissa and Dr. Suarez as in discharge instruction. 2. Recent history of laparoscopic right hemicolectomy and adhesiolysis for hepatic flexure colon cancer with postop ileus: Currently patient passing flatus. ED physician Dr. Rossi discussed with Dr. Vasquez who consulted GI Dr. Suarez. Surgery is consulted. 11/24: Discussed with surgeon. Patient passing flatus. 11/25: Surgeons note reviewed. Colonoscopy showed significant fibrillatory of rectum with linear injuries undetermined etiology. Dr. Flood did not tolerate oral metronidazol/Proctofoam although he suggested. On discussion with GI, does not seem local ulcerative colitis but might have proctitis. 3. Type 2 diabetes mellitus with history of hypoglycemia: Glucose in BMP is 159. Accu-Chek before meals and at bedtime coverage with sliding scale. Started on clear liquid diet 1800 ADA diet. 11/24: Glucose is controlled about 140-200. 11/27: Resume home oral hypoglycemic agents. 4. Hypertension: Patient Home medications are amlodipine, carvedilol and lisinopril. Hold lisinopril and amlodipine but continue carvedilol with holding parameters. We will resume rest of antihypertensive later on BP is controlled. 11/27: Blood pressure is controlled 5. Coronary artery status positive stents:: Continue statin but hold aspirin and Plavix. She follows outside surgical scrub tech, Dr. Fernandez in [place]. Last cardiac stent was in last week of April 2022 less than 1 year. She had all 3 stents placed at one time. 6. Dyslipidemia on statin, hypothyroidism on Synthroid, and anxiety and depression on venlafaxine: Home medications reconciliation done. VTE prophylaxis: Bilateral SCDs. Pharmacological prophylaxis contraindicated. Living will/advanced directive/end of life care: Patient does not have living will or advanced directive. She does not have designated power of corporate attorney for healthcare after discussion of benefits/risks procedures involved with full code, DNR CC arrest and DNR CC, the patient and her mother near the bedside opted for full code. Patient does want artificial life support including intubation, tube feed, ventilator and/chest compression, central venous catheter, vasopressor and DC shock if needed Medications at Discharge Home Medications amlodipine 5 mg tablet 5 mg PO LUNCH BP 04/02/22 aspirin 81 mg tablet,delayed release (Adult Aspirin Regimen) 81 mg PO DAILY HEART 04/02/22 nystatin 100,000 unit/gram topical powder (Nystop) 100,000 gm topical PRN PRN Skin Cleansing 04/02/22 biotin 5,000 mcg disintegrating tablet 10,000 mcg PO DAILY SUPPLEMENT 08/26/22 butalbital 50 mg-acetaminophen 325 mg-caffeine 40 mg-codeine 30 mg cap 1 cap PO Q4H PRN Pain 08/26/22 hyoscyamine sulfate 0.125 mg tablet 0.125 mg PO BID-QID PRN Cough 08/26/22 valacyclovir 1 gram tablet (Valtrex) 1,000 mg PO DAILY PRN outbreak 08/26/22 vitamin B complex (B Complex-Vitamin B12 tablet) 1 tab PO DAILY SUPPLEMENT 08/26/22 lisinopril 5 mg tablet 5 mg PO QHS BP 10/31/22 carvedilol 3.125 mg tablet 3.125 mg PO BID BP/HEART 11/05/22 clopidogrel 75 mg tablet 75 mg PO DAILY BLOOD THINNER 11/05/22 glipizide 10 mg tablet, extended release 24 hr 10 mg PO BID DIABETIC 11/05/22 levothyroxine 88 mcg tablet (Euthyrox) 88 mcg PO DAILY THYROID 11/05/22 rosuvastatin 10 mg tablet (Crestor) 10 mg PO QHS CHOLESTEROL 11/05/22 venlafaxine 150 mg capsule,extended release 24 hr (Effexor XR) 150 mg PO DAILY DEPRESSION 11/05/22 venlafaxine 75 mg tablet 75 mg PO DAILY DEPRESSION 11/05/22 hydroxychloroquine 200 mg tablet 200 mg PO BID RA #60 tabs 11/06/22 ondansetron HCl 8 mg tablet 8 mg PO Q6H 11/15/22 ascorbate calcium (vitamin C) 500 mg tablet 1 g PO DAILY #30 tabs 11/27/22 ferrous sulfate 325 mg (65 mg iron) tablet,delayed release 325 mg PO QODAY 60 days #30 tabs 11/27/22 pantoprazole 40 mg tablet,delayed release 40 mg PO DAILY 30 days #30 tabs 11/27/22 sennosides 8.6 mg-docusate sodium 50 mg tablet (Stool Softener-Stimulant Laxative) 2 tab PO BID PRN PRN Constipation #0 tabs 11/27/22 Physical Exam Narrative Seen and examined. Patient had a small amount/insignificant residual blood in the stool yesterday evening and 1 in the morning. Hemodynamically heart rate and blood pressure in normal range. No hypoxia or tachypnea. No abdominal pain. Patient is ready to go home. Physical exam General: Alert, Oriented x3, Cooperative HEENT: Very pale looking conjunctive. Atraumatic, PERRLA, EOMI, Normocephalic Oral: Oral mucosa moist. No Gingival or Mucosal Lesions/ Ulcerations Neck: Supple, No JVD, Negative Carotid Bruits Lungs: Air entry diminished in bilateral lung bases. No crepitation/rhonchi Cardiovascular: sinus rhythm in 90s., Normal S1, Normal S2, No murmurs Abdomen: Laparoscopic surgery ports and lower midline incision site dry with no discharge. Bowel Sounds good, Soft, Non Tender, Non-Distended : No renal angle tenderness. No suprapubic tenderness. Extremities: No edema, Capillary Refill Less than 3 Seconds Skin: No rashes, No breakdown Musculoskeletal: ROM full and intact. No Tenderness to Palpation of Joints or Extremities Neurological: Cranial nerves II-XII grossly intact, DTR 2+/4 and Symmetrical, Neuro grossly intact Psych/Mental Status: Flat affect Medical Records Data Medical Nutrition Assessment Dietitian: Malnutrition Criteria Met Start: 11/24/22 12:45 Freq: Status: Active Protocol: Document 11/24/22 12:45 AG (Rec: 11/24/22 12:45 AG [id number]) Nutrition Malnutrition Evidence of Malnutrition Exists Yes Malnutrition (severe): Acute Illness/Injury Evidenced By Suboptimal Energy Intake ( Severe),Weight Loss (Severe) Clinical Problem Acute Disease or Injury Related Malnutrition Etiology severe, acute malnutrition related to inadequate energy intake w/ increased energy needs d/t cancer Signs/Symptoms as evidenced by unintentional wt loss of 9.5#/5% < 2 weeks; estimated PO intake meeting < 50% of estimated energy needs x 5 days Status Active Problem Recommendation Dietitian Recommendations/Changes recommend advance diet as tolerated to regular/fiber restricted; ensure plus high protein 120mL 4x/day w/ medpass for additional calories/protein if consumed. Weight / BMI Weight Weight: 171 lb 11.841 oz Body Mass Index (BMI) 26.3 ABG / Lab / Microbiology Data Result Diagrams: 11/26/22 05:45 11/26/22 05:45 Laboratory: Laboratory Results - last 24 hr 11/23/22 10:00: Crossmatch See Detail 11/26/22 13:24: POC Glucose 204 H 11/26/22 16:57: POC Glucose 206 H 11/26/22 23:55: POC Glucose 159 H 11/27/22 06:20: POC Glucose 129 H D/C Instructions Discharge Diet: Soft diet (Soft regular diet ) Weight Bearing Status: Weight bearing as tolerated Call your doctor if you observe: Fever of 101 or Higher, Coldness, Increased Pain, Numbness or Tingling, Change in Color, Inability to urinate, Inability to have a bowel movement, Using more than 1 pad per hour, Shortness of breath, Dizziness, Fainting spells, Swelling in the ankles, Chest pain, Prolonged hiccupping, Increased palpitations (irregular heartbeat) and Calf discomfort When: IN 2 WEEKS Meaningful Use Info Meaningful Use Diagnoses (Choose all that apply): None applicable Discharge Plan Admission Admit Date/Time: 11/23/22 11:26 Primary Reason for Your Visit: Lower GI bleed, recent right hemicolectomy Attending Provider: Robert Reece Primary Care Provider: Kimi López Consulting Providers: Angi Vasquez Discharge Orders/Prescriptions Prescriptions: New sennosides-docusate sodium [Stool Softener-Stimulant Laxat] 8.6-50 mg Tablet 2 tab PO BID PRN PRN (Reason: Constipation) Qty: 0 0RF pantoprazole 40 mg Tablet,Delayed Release (Dr/Ec) 40 mg PO DAILY 30 Days Qty: 30 1RF ferrous sulfate 325 mg (65 mg iron) tablet,delayed release (DR/EC) 325 mg PO QODAY 60 Days Qty: 30 1RF ascorbate calcium (vitamin C) 500 mg tablet 1 g PO DAILY Qty: 30 2RF Continued amlodipine 5 mg tablet 5 mg PO LUNCH nystatin [Nystop] 100,000 unit/gram powder 100,000 gm topical PRN PRN (Reason: Skin Cleansing) Label Comments: APPLY TOPICALLY EVERY 8 HOURS [id number] mg capsule 1 cap PO Q4H PRN (Reason: Pain) valacyclovir [Valtrex] 1 gram tablet 1,000 mg PO DAILY PRN (Reason: outbreak) hyoscyamine sulfate 0.125 mg tablet 0.125 mg PO BID-QID PRN (Reason: Cough) biotin 5,000 mcg tablet,disintegrating 10,000 mcg PO DAILY vitamin B complex [B Complex-Vitamin B12] Tablet 1 tab PO DAILY lisinopril 5 mg tablet 5 mg PO QHS venlafaxine 75 mg tablet 75 mg PO DAILY glipizide 10 mg tablet extended release 24hr 10 mg PO BID venlafaxine [Effexor XR] 150 mg capsule,extended release 24hr 150 mg PO DAILY clopidogrel 75 mg tablet 75 mg PO DAILY carvedilol 3.125 mg tablet 3.125 mg PO BID levothyroxine [Euthyrox] 88 mcg tablet 88 mcg PO DAILY rosuvastatin [Crestor] 10 mg Tablet 10 mg PO QHS ondansetron HCl 8 mg tablet 8 mg PO Q6H hydroxychloroquine 200 mg tablet 200 mg PO BID Qty: 60 0RF Held aspirin [Adult Aspirin Regimen] 81 mg tablet,delayed release (DR/EC) 81 mg PO DAILY Hold Instructions: Hold for 5 days. Discontinued famotidine 40 mg tablet 40 mg PO QHS ibuprofen 800 mg tablet 800 mg PO Q6H PRN PRN (Reason: Pain) Label Comments: TAKE 1 TABLET BY MOUTH TWICE DAILY NEEDED FOR MILD PAIN prednisone 5 mg tablet 5 mg PO DAILY Referrals / Follow Up: Kimi López MD [Primary Care Provider] - 12/04/22 1:30 pm Golden Flood MD [Med Staff - Active Staff] - Within 2 Weeks Shaun Suarez DO [Med Staff - Active Staff] - Within 2 Weeks Disposition Disposition (needs filled in before D/C Order can be placed): Home, Self Care Charges/Coding Visit Charges Inpatient E&M: 04508 Disch Hosp >30min
--- NOTE | 2022-11-27 10:53 | PHA.DC.MR ---
Pharmacy Service has performed discharge medication reconciliation for this patient. The patient's discharge medication list was reviewed for discrepancies and discrepancies were resolved. Home Medications amlodipine 5 mg tablet 5 mg PO LUNCH BP 04/02/22 aspirin 81 mg tablet,delayed release (Adult Aspirin Regimen) 81 mg PO DAILY HEART 04/02/22 nystatin 100,000 unit/gram topical powder (Nystop) 100,000 gm topical PRN PRN Skin Cleansing 04/02/22 biotin 5,000 mcg disintegrating tablet 10,000 mcg PO DAILY SUPPLEMENT 08/26/22 butalbital 50 mg-acetaminophen 325 mg-caffeine 40 mg-codeine 30 mg cap 1 cap PO Q4H PRN Pain 08/26/22 hyoscyamine sulfate 0.125 mg tablet 0.125 mg PO BID-QID PRN Cough 08/26/22 valacyclovir 1 gram tablet (Valtrex) 1,000 mg PO DAILY PRN outbreak 08/26/22 vitamin B complex (B Complex-Vitamin B12 tablet) 1 tab PO DAILY SUPPLEMENT 08/26/22 lisinopril 5 mg tablet 5 mg PO QHS BP 10/31/22 carvedilol 3.125 mg tablet 3.125 mg PO BID BP/HEART 11/05/22 clopidogrel 75 mg tablet 75 mg PO DAILY BLOOD THINNER 11/05/22 glipizide 10 mg tablet, extended release 24 hr 10 mg PO BID DIABETIC 11/05/22 levothyroxine 88 mcg tablet (Euthyrox) 88 mcg PO DAILY THYROID 11/05/22 rosuvastatin 10 mg tablet (Crestor) 10 mg PO QHS CHOLESTEROL 11/05/22 venlafaxine 150 mg capsule,extended release 24 hr (Effexor XR) 150 mg PO DAILY DEPRESSION 11/05/22 venlafaxine 75 mg tablet 75 mg PO DAILY DEPRESSION 11/05/22 hydroxychloroquine 200 mg tablet 200 mg PO BID RA #60 tabs 11/06/22 ondansetron HCl 8 mg tablet 8 mg PO Q6H 11/15/22 ascorbate calcium (vitamin C) 500 mg tablet 1 g PO DAILY #30 tabs 11/27/22 ferrous sulfate 325 mg (65 mg iron) tablet,delayed release 325 mg PO QODAY 60 days #30 tabs 11/27/22 pantoprazole 40 mg tablet,delayed release 40 mg PO DAILY 30 days #30 tabs 11/27/22 sennosides 8.6 mg-docusate sodium 50 mg tablet (Stool Softener-Stimulant Laxative) 2 tab PO BID PRN PRN Constipation #0 tabs 11/27/22
[2022-11-27 12:11] LABS: Bedside Glucose 208 mg/dL (74-106)
== END 2022-11-27 13:41 | disposition home or self-care (01) | DRG 231 ==
LOC: ED 11:58 → PCU 11:59
PROVIDERS: Anesthesiology; Hospitalist; Internal Medicine Gastroenterology; Admitting Provider Internal Medicine; Emergency Provider Emergency Medicine; PCP Internal Medicine; Visit Provider Internal Medicine
PROC: 0DJD8ZZ Inspection of Lower Intestinal Tract, Via Natural or Artificial Opening Endoscopic (ICD-10-PCS; CPT 45378; principal; 2022-11-24 08:00)
DX: K55.21 Angiodysplasia of colon with hemorrhage (principal); D62 Acute posthemorrhagic anemia; E11.22 Type 2 diabetes mellitus with diabetic chronic kidney disease; E11.40 Type 2 diabetes mellitus with diabetic neuropathy, unspecified; M06.9 Rheumatoid arthritis, unspecified; E03.9 Hypothyroidism, unspecified; E78.5 Hyperlipidemia, unspecified; N18.9 Chronic kidney disease, unspecified; K63.5 Polyp of colon; I12.9 Hypertensive chronic kidney disease with stage 1 through stage 4 chronic kidney disease, or unspecified chronic kidney disease; M79.7 Fibromyalgia; T85.838A Hemorrhage due to other internal prosthetic devices, implants and grafts, initial encounter; I25.10 Atherosclerotic heart disease of native coronary artery without angina pectoris; F41.9 Anxiety disorder, unspecified; Z87.891 Personal history of nicotine dependence; Z79.02 Long term (current) use of antithrombotics/antiplatelets; R42 Dizziness and giddiness; Z79.52 Long term (current) use of systemic steroids; Z79.1 Long term (current) use of non-steroidal anti-inflammatories (NSAID); Z51.5 Encounter for palliative care; Z79.84 Long term (current) use of oral hypoglycemic drugs; F32.A Depression, unspecified; N28.89 Other specified disorders of kidney and ureter; Z95.5 Presence of coronary angioplasty implant and graft
CPT/HCPCS: 36415; 74174; 80048; 80076; 82962; 83036; 83605; 83735; 84100; 84443; 85014; 85018; 85025; 85610; 85730; 86850; 86900; 86901; 86920; 88305; 93005; 94668; 97802; 99252; 99285; J7040; J7050; J7120; P9016; Q9967; A4216; G0463; J2405; J2916; J3490

== ENCOUNTER → 2022-11-29 | Outpatient (CLI) | payer MEDICAID, SELFPAY ==
[2022-11-29 15:14] LABS: Absolute Lymphocyte Count 2.64 X10^3/uL (0.83-4.51); Absolute Neutrophil Count 6.3 X10^3/uL (2.0-7.7); Basophil# 0.08 X10^3/uL; Basophil% 0.8 % (0-1); Eosinophil# 0.22 X10^3/uL; Eosinophils% 2.2 % (0-5); Hematocrit 23.3 % (37-47); Hemoglobin 6.7 g/dL (12.0-15.0); Lymphocyte # 2.64 X10^3/ul (0.83-4.51); Lymphocyte % 26.2 % (19-41); Mean Corp Hgb Conc 28.8 g/dL (32-36); Mean Corpuscular Volume 90.3 fL (81-99); Mean Platelet Vol. 9.8 fl (6.2-12.0); Monocyte# 0.71 X10^3/uL; NRBC Flagged by Analyzer 1.1 % (0-5); Neutrophil # 6.34 X10^3/uL (2.7-7.7); Neutrophil % 62.9 % (47-70); Platelet Count 429 K/mm3 (150-450); RBC Distribution Width CV 17.7 % (11.6-14.6); Red Blood Count 2.58 M/mm3 (4.2-5.4); White Blood Count 10.1 K/mm3 (4.4-11.0)
[2022-11-29 15:53] LABS: ALB/GLOB Ratio 0.8 RATIO (0.9-2.4); AST(SGOT) 14 U/L (15-37); Alanine Aminotransfer ALT/SGPT 18 U/L (13-56); Albumin, Serum 2.8 g/dL (3.2-5.0); Alkaline Phosphatase 59 U/L (45-117); Anion Gap 8 (5-15); BUN 16 mg/dL (7-18); BUN/Creat Ratio 13.8 RATIO (10-20); Calcium,Total 8.5 mg/dL (8.5-10.1); Chloride 109 mmol/L (98-107); Creatinine, Serum 1.16 mg/dL (0.55-1.02); EST Glomerular Filtration Rate 50 mL/min (>60); Est Glom Filt Rate - Afr Amer 61 mL/min (>60); Ferritin 139 ng/mL (8-252); Globulin 3.7 g/dL (2.2-4.2); Glucose 163 mg/dL (74-106); Iron 27 ug/dL (50-170); Iron Binding Capacity,Total 326 ug/dL (250-450); PERCENT IRON SATURATION 8.3 % (15.0-55.0); Potassium 3.9 mmol/L (3.5-5.1); Protein, Total 6.5 g/dL (6.4-8.2); Sodium Level 144 mmol/L (136-145)
== END | disposition home or self-care (01) ==
LOC: MTLAB 13:34
PROVIDERS: PCP Internal Medicine; Referring Provider Nurse Practitioner Adult Health; Visit Provider Nurse Practitioner Adult Health
DX: D50.0 Iron deficiency anemia secondary to blood loss (chronic) (principal)
CPT/HCPCS: 36415; 80053; 82728; 83540; 83550; 85025

== ENCOUNTER → 2022-11-30 | Outpatient (CLI) | payer MEDICAID, SELFPAY ==
[2022-11-30 08:27] LABS: Absolute Lymphocyte Count 2.44 X10^3/uL (0.83-4.51); Basophil% 0.8 % (0-1); Eosinophil# 0.24 X10^3/uL; Eosinophils% 1.9 % (0-5); Hematocrit 25.2 % (37-47); Hemoglobin 7.4 g/dL (12.0-15.0); Lymphocyte # 2.44 X10^3/ul (0.83-4.51); Lymphocyte % 19.3 % (19-41); Mean Corp Hgb Conc 29.4 g/dL (32-36); Mean Corpuscular Hgb 25.7 pg (27.0-32.0); Mean Corpuscular Volume 87.5 fL (81-99); Mean Platelet Vol. 9.5 fl (6.2-12.0); Monocyte# 0.76 X10^3/uL; NRBC Flagged by Analyzer 0.7 % (0-5); Neutrophil # 8.99 X10^3/uL (2.7-7.7); Neutrophil % 71.1 % (47-70); Platelet Count 442 K/mm3 (150-450); RBC Distribution Width CV 17.8 % (11.6-14.6); RBC Distribution Width SD 55.9 fl (35.1-43.9); Red Blood Count 2.88 M/mm3 (4.2-5.4); White Blood Count 12.6 K/mm3 (4.4-11.0)
== END | disposition home or self-care (01) ==
LOC: LAB 08:09
PROVIDERS: PCP Internal Medicine; Referring Provider Nurse Practitioner Adult Health; Visit Provider Nurse Practitioner Adult Health
DX: D50.0 Iron deficiency anemia secondary to blood loss (chronic) (principal)
CPT/HCPCS: 36415; 85025

== ENCOUNTER 2022-12-05 06:21 | Inpatient (IN) | payer MEDICAID, SELFPAY ==
[2022-12-05] VITALS (11 sets, daily range): BP systolic 119–152; BP diastolic 50–61; PULSE 75–91; RESP 16–19; TEMP 35.6–37.1; O2SAT 93–100; BMI 32.3; BMI 30.4
--- NOTE | 2022-12-05 06:49 | CT_ITS ---
STUDY: CTA ABDOMEN AND PELVIS WITH CONTRAST REASON FOR EXAM: Female, 62 years old. GI bleed RADIATION DOSAGE (If Supplied By Facility): CTDIvol = ( 10.07 ) mGy, DLP = ( 605.15 ) mGycm TECHNIQUE: Transaxial images were obtained from the dome of the diaphragm to the symphysis pubis without oral contrast. IV 100mL Isovue-370 was administered. Sagittal and coronal images were reconstructed. Individualized dose optimization techniques were used for this CT. COMPARISON: Comparison is made with prior study dated 11/25/2022. FINDINGS: The visualized lung bases are unremarkable. Coronary artery calcification. 8.9 mm cyst in the dome of the right lobe of the liver. Fatty infiltration of the liver. The patient is status post cholecystectomy. Normal spleen. Normal pancreas. Normal bilateral adrenal glands. There is a 3.2 cm cyst in the upper pole of the right kidney. Small cysts are also seen in the lower pole of the right kidney. Normal left kidney. Normal visualized stomach. Normal small intestine. The patient is status post right hemicolectomy with anastomosis in the proximal transverse colon. The appendix is visualized and appears normal. There is diffuse atherosclerotic calcification of the abdominal aorta and its major visceral branches, without a demonstrated aneurysm. Normal inferior vena cava. Normal retroperitoneum. Normal urinary bladder. Normal abdominal wall. Disc space narrowing and degeneration at the L5-S1 level. CT/CTA Abd/Pelvis W/WO Contrast IMPRESSION: Status post right hemicolectomy. No evidence of active bleeding on this examination. Electronically Signed: Franco Sullivan MD at 8:34 EST ,
[2022-12-05] MEDS: Hydrocortisone Sod Succinate 100 MG/2 ML Vial IV (07:06)
[2022-12-05] MEDS: 0.9% Normal Saline 1,000 ML 999 ML IV (07:06)
[2022-12-05 07:07] LABS: Absolute Lymphocyte Count 2.43 X10^3/uL (0.83-4.51); Absolute Neutrophil Count 6.5 X10^3/uL (2.0-7.7); Basophil# 0.07 X10^3/uL; Basophil% 0.7 % (0-1); Eosinophil# 0.22 X10^3/uL; Eosinophils% 2.2 % (0-5); Hematocrit 19.9 % (37-47); Lymphocyte # 2.43 X10^3/ul (0.83-4.51); Lymphocyte % 24.5 % (19-41); Mean Corp Hgb Conc 29.1 g/dL (32-36); Mean Corpuscular Hgb 25.7 pg (27.0-32.0); Mean Corpuscular Volume 88.1 fL (81-99); Mean Platelet Vol. 9.8 fl (6.2-12.0); Monocyte# 0.67 X10^3/uL; Monocyte% 6.7 % (0-10); NRBC Flagged by Analyzer 0.3 % (0-5); Neutrophil # 6.45 X10^3/uL (2.7-7.7); POSITIVE COUNT YES; Platelet Count 355 K/mm3 (150-450); RBC Distribution Width CV 17.5 % (11.6-14.6); RBC Distribution Width SD 55.5 fl (35.1-43.9); Red Blood Count 2.26 M/mm3 (4.2-5.4); White Blood Count 9.9 K/mm3 (4.4-11.0)
[2022-12-05] MEDS: DiphenhydrAMINE 50 MG/ML Syringe IV (07:07)
[2022-12-05 07:10] LABS: International Normalized Ratio 1.1; Partial Thromboplast Time 29.3 Seconds (24.1-36.2); Prothrombin Time (Protime)PT. 13.4 SECONDS (11.7-14.9)
[2022-12-05 07:13] LABS: Differential Indicated SCAN CRITERIA MET; Hemoglobin 5.8 g/dL (12.0-15.0)
[2022-12-05] MEDS: Famotidine 200 MG/20 ML MDV 40 MG in 0.9% Normal Saline (Pres. free 6 ML 300 MG IV (07:18)
[2022-12-05 07:19] LABS: Anion Gap 5 (5-15); BUN 16 mg/dL (7-18); BUN/Creat Ratio 15.5 RATIO (10-20); Calcium,Total 8.5 mg/dL (8.5-10.1); Chloride 111 mmol/L (98-107); Creatinine, Serum 1.03 mg/dL (0.55-1.02); EST Glomerular Filtration Rate 58 mL/min (>60); Est Glom Filt Rate - Afr Amer 70 mL/min (>60); Glucose 197 mg/dL (74-106); Potassium 3.9 mmol/L (3.5-5.1); Sodium Level 144 mmol/L (136-145)
--- NOTE | 2022-12-05 08:20 | EX.ED.DYSGE1 ---
HPI History of Present Illness Chief Complaint: GI Bleed Narrative Narrative: Patient is a 62-year-old female who underwent an intestinal anastomoses roughly 3 weeks ago. Following this she developed a GI bleed with anemia and had to receive blood and iron transfusion. She had an EGD and colonoscopy performed by GI and reportedly they cauterized and clipped the source of bleeding. She states she does have a history of cardiovascular disease and has 3 stents and secondary to this takes aspirin and Plavix. She states she began the medication just yesterday and then developed bouts of blood in the stool. She states the blood is bright red in color. She states with this she feels lightheaded and dizzy. . She denies any chest pain or shortness of breath or abdominal pain. She states she contacted her GI doctor who advised her she needs to come back to the hospital for repeat labs and imaging studies and secondary to this presents at this time [facility] Medical History Acid reflux Anemia Anemia due to blood loss Anxiety Breast cyst Cancer Cardiology follow-up encounter Carpal tunnel syndrome Diabetes Dietary restriction Erythromelalgia Fibromyalgia Foot fracture, left Foot fracture, right Former smoker Gastric reflux Gastroenteritis Hepatitis History of chronic kidney disease History of diabetes mellitus History of echocardiogram History of heart attack History of renal disease History of steroid therapy Hypertension Infectious mononucleosis Injury of head and neck Leg cramps Low iron Measles Migraines Neuropathy Osteopenia Post-menopausal Rheumatoid arthritis Seasonal allergies Shingles Shortness of breath on exertion Small fiber neuropathy Thyroid disease UTI (urinary tract infection) Home Medications amlodipine 5 mg tablet 5 mg PO LUNCH BP 04/02/22 [History Last Taken 11/22/22] aspirin 81 mg tablet,delayed release (Adult Aspirin Regimen) 81 mg PO DAILY HEART 04/02/22 [History Last Taken 11/22/22] nystatin 100,000 unit/gram topical powder (Nystop) 100,000 gm topical PRN PRN Skin Cleansing 04/02/22 [History Last Taken Unknown] biotin 5,000 mcg disintegrating tablet 10,000 mcg PO DAILY SUPPLEMENT 08/26/22 [History Last Taken 11/22/22] butalbital 50 mg-acetaminophen 325 mg-caffeine 40 mg-codeine 30 mg cap 1 cap PO Q4H PRN Pain 08/26/22 [History Last Taken 1 Week Ago ~11/08/22] valacyclovir 1 gram tablet (Valtrex) 1,000 mg PO DAILY PRN outbreak 08/26/22 [History Last Taken Unknown] vitamin B complex (B Complex-Vitamin B12 tablet) 1 tab PO DAILY SUPPLEMENT 08/26/22 [History Last Taken 11/22/22] lisinopril 5 mg tablet 5 mg PO QHS BP 10/31/22 [History Last Taken 11/22/22] carvedilol 3.125 mg tablet 3.125 mg PO BID BP/HEART 11/05/22 [History Last Taken 11/22/22] clopidogrel 75 mg tablet 75 mg PO DAILY BLOOD THINNER 11/05/22 [History Last Taken 11/22/22] glipizide 10 mg tablet, extended release 24 hr 10 mg PO BID DIABETIC 11/05/22 [History Last Taken 11/22/22] levothyroxine 88 mcg tablet (Euthyrox) 88 mcg PO DAILY THYROID 11/05/22 [History Last Taken 11/23/22] rosuvastatin 10 mg tablet (Crestor) 10 mg PO QHS CHOLESTEROL 11/05/22 [History Last Taken 11/22/22] venlafaxine 150 mg capsule,extended release 24 hr (Effexor XR) 150 mg PO DAILY DEPRESSION 11/05/22 [History Last Taken 11/22/22] venlafaxine 75 mg tablet 75 mg PO DAILY DEPRESSION 11/05/22 [History Last Taken 11/22/22] hydroxychloroquine 200 mg tablet 200 mg PO BID RA #60 tabs 11/06/22 [Rx Last Taken 11/22/22] ondansetron HCl 8 mg tablet 8 mg PO Q6H 11/15/22 [History Last Taken 11/15/22] pantoprazole 40 mg tablet,delayed release 40 mg PO DAILY 30 days #30 tabs 11/27/22 [Rx Last Taken Unknown] sennosides 8.6 mg-docusate sodium 50 mg tablet (Stool Softener-Stimulant Laxative) 2 tab PO BID PRN PRN Constipation #0 tabs 11/27/22 [Rx Last Taken Unknown] azithromycin 250 mg tablet See Rx Instructions PO .COMPLEX #6 tabs 12/04/22 [Rx Last Taken Unknown] Allergy/AdvReac Type Severity Reaction Status Date / Time Iodinated Contrast Media Allergy Intermediate Hives Verified 12/05/22 06:25 [IVP dye] Seasonal Allergies: Uncoded Allergy Mild Hives Verified 12/05/22 06:25 levofloxacin [From Levaquin] Allergy PT UNSURE Verified 12/05/22 06:25 OF REACTION liraglutide [From Victoza] Allergy dehydration Verified 12/05/22 06:25 - ended up in hospital Sulfa (Sulfonamide Allergy pt states Verified 12/05/22 06:25 Antibiotics) has [sulfa drugs] tolerated some methylprednisolone AdvReac Intermediate HALLUCINATI Verified 12/05/22 06:25 [From Solu-Medrol] ONS acetaminophen [From Percocet] AdvReac Itching Verified 12/05/22 06:25 adhesive AdvReac Rash Verified 12/05/22 06:25 hydrochlorothiazide AdvReac pt can tke Verified 12/05/22 06:25 tablet, but not capsule hydrocodone AdvReac Itching Verified 12/05/22 06:25 oxycodone [From Percocet] AdvReac Itching Verified 12/05/22 06:25 Family History Grandfather Cancer Heart disease Father Cancer Heart disease Diabetes Uncle Cancer Aunt Cancer Brother Heart disease Surgical History H/O heart artery stent History of lumbar laminectomy Hx of appendectomy Hx of cholecystectomy Hx of colonoscopy Hx of fusion of cervical spine Hx of release of tendon Hx of tonsillectomy Social History Smoking Status: Former smoker alcohol intake: never substance use type: does not use caffeine: Yes Type: carbonated beverages and tea what type of physical activity do you participate in: none seatbelt use: always do you feel safe at home: Yes ROS ROS ED Constitutional Constitutional ED: Denies chills or fever(s) Eyes Eyes: Denies change in vision ENT ENT ED: Denies sore throat Cardiovascular Cardiovascular: Denies chest pain or palpitations Respiratory/Chest Respiratory/Chest: Denies cough or dyspnea Gastrointestinal Gastrointestinal: Reports other Details: Positive hematochezia ; Denies abdominal pain, diarrhea, nausea or vomiting Genitourinary Genitourinary ED: Denies dysuria or hematuria Musculoskeletal Musculoskeletal: Denies myalgias Integumentary Denies rash Neurologic Neurologic: Reports weakness; Denies headache(s) Hematologic/Lymphatic Hematologic/Lymphatic: Reports easy bleeding and easy bruising EXAM Physical Exam Const Vital Signs: 12/05/22 06:22 Temperature 96.0 F L Temperature Source Temporal Pulse Rate 85 Respiratory Rate 16 Blood Pressure 146/57 H Blood Pressure Mean 86 Pulse Ox 100 Oxygen Delivery Method Room Air Positive well nourished and well developed General Appearance ED: well developed and pallor HEENT Reports moist mucous membranes Eyes PERRL and EOMs intact bilaterally General Eye ED: Yes pale conjunctiva Neck supple Resp normal respiratory effort and clear to auscultation bilaterally Cardio regular rate and regular rhythm Rate: other Other Details: Radial pulses are plus 2 out of 4 bilaterally are equal and symmetric GI normal to inspection, nondistended, normoactive bowel sounds, non-tender, non-distended and no masses GI Narrative: Abdomen is soft nontender nondistended with normoactive bowel sounds there is no voluntary guarding or rigidity no pulsatile mass or fluid wave. patient does have postsurgical incision to the abdomen which is clean dry and intact without secondary changes to suggest infection Auscultation: normoactive bowel sounds Palpation: soft Extremity normal to inspection Neuro oriented x3 and CN's II-XII intact bilaterally Sensorium / Orientation: alert Psych mental status grossly normal Skin no rashes or lesions noted General Skin Exam: pallor MDM MDM MDM Narrative Medical decision making narrative: Patient presented to the ER normotensive and had a stable heart rate but did look extremely pale on exam. Secondary to this repeat blood work was obtained which did confirm anemia with a hemoglobin of 5.8. She was started on Protonix with concern for GI bleed. A repeat CTA of the abdomen and pelvis is obtained as requested by GI. At this time because of the patient's recurrent anemia and persistent bleeding she will need to be readmitted to the hospital and therefore will be admitted at this time. Lab Data Attestation: I reviewed the patient's lab results. Labs: Laboratory Results - last 24 hr 12/05/22 12/05/22 12/05/22 06:27 06:27 06:27 WBC 9.9 RBC 2.26 L Hgb 5.8 L* Hct 19.9 L MCV 88.1 MCH 25.7 L MCHC 29.1 L RDW Std Deviation 55.5 H RDW Coeff of Emilio 17.5 H Plt Count 355 MPV 9.8 Immature Gran % (Auto) 0.900 Neut % (Auto) 65.0 Lymph % (Auto) 24.5 [place] % (Auto) 6.7 Eos % (Auto) 2.2 Baso % (Auto) 0.7 Absolute Neuts (auto) 6.5 Absolute Lymphs (auto) 2.43 Nucleated RBC % 0.3 Differential Comment SCANNED Diff Path Review May foll Polychromasia 1+ Hypochromasia 2+ Anisocytosis 2+ Rouleaux 1+ PT 13.4 INR 1.1 APTT 29.3 Sodium 144 Potassium 3.9 Chloride 111 H Carbon Dioxide 28.0 Anion Gap 5 BUN 16 Creatinine 1.03 H Estim Creat Clear Calc 48.90 Est GFR (MDRD) Af Amer 70 Est GFR (MDRD) Non-Af 58 L BUN/Creatinine Ratio 15.5 Glucose 197 H Calcium 8.5 Blood Type Antibody Screen 12/05/22 06:27 WBC RBC Hgb Hct MCV MCH MCHC RDW Std Deviation RDW Coeff of Emilio Plt Count MPV Immature Gran % (Auto) Neut % (Auto) Lymph % (Auto) [place] % (Auto) Eos % (Auto) Baso % (Auto) Absolute Neuts (auto) Absolute Lymphs (auto) Nucleated RBC % Differential Comment Diff Path Review Polychromasia Hypochromasia Anisocytosis Rouleaux PT INR APTT Sodium Potassium Chloride Carbon Dioxide Anion Gap BUN Creatinine Estim Creat Clear Calc Est GFR (MDRD) Af Amer Est GFR (MDRD) Non-Af BUN/Creatinine Ratio Glucose Calcium Blood Type A NEGATIVE Antibody Screen NEGATIVE Radiography Diagnostic Testing: Clinical Impression(s) from Imaging Studies Abdomen/Pelvis CTA 12/05/22 06:49 IMPRESSION: Status post right hemicolectomy. No evidence of active bleeding on this examination. Electronically Signed: Franco Sullivan MD at 8:34 EST , Discharge Plan Triage Chief Complaint: GI Bleed ED Provider: Lucas Garcia Dx/Rx/DC Orders Clinical Impression: Acute blood loss anemia, GI (gastrointestinal bleed), CAD (coronary artery disease) Prescriptions: No Action amlodipine 5 mg tablet 5 mg PO LUNCH aspirin [Adult Aspirin Regimen] 81 mg tablet,delayed release (DR/EC) 81 mg PO DAILY Hold Instructions: Hold for 5 days. nystatin [Nystop] 100,000 unit/gram powder 100,000 gm topical PRN PRN (Reason: Skin Cleansing) Label Comments: APPLY TOPICALLY EVERY 8 HOURS [id number] [id number] mg capsule 1 cap PO Q4H PRN (Reason: Pain) valacyclovir [Valtrex] 1 gram tablet 1,000 mg PO DAILY PRN (Reason: outbreak) biotin 5,000 mcg tablet,disintegrating 10,000 mcg PO DAILY vitamin B complex [B Complex-Vitamin B12] Tablet 1 tab PO DAILY azithromycin 250 mg tablet See Rx Instructions PO .COMPLEX Qty: 6 0RF Rx Instructions: For 250 mg dose pack: take 500 mg today (day 1), then 250 mg for 4 days (days 2-5) PO lisinopril 5 mg tablet 5 mg PO QHS venlafaxine 75 mg tablet 75 mg PO DAILY glipizide 10 mg tablet extended release 24hr 10 mg PO BID venlafaxine [Effexor XR] 150 mg capsule,extended release 24hr 150 mg PO DAILY clopidogrel 75 mg tablet 75 mg PO DAILY carvedilol 3.125 mg tablet 3.125 mg PO BID levothyroxine [Euthyrox] 88 mcg tablet 88 mcg PO DAILY rosuvastatin [Crestor] 10 mg Tablet 10 mg PO QHS ondansetron HCl 8 mg tablet 8 mg PO Q6H sennosides-docusate sodium [Stool Softener-Stimulant Laxat] 8.6-50 mg Tablet 2 tab PO BID PRN PRN (Reason: Constipation) Qty: 0 0RF pantoprazole 40 mg Tablet,Delayed Release (Dr/Ec) 40 mg PO DAILY 30 Days Qty: 30 1RF hydroxychloroquine 200 mg tablet 200 mg PO BID Qty: 60 0RF Primary Care Provider: Kimi López Referrals: Kimi López MD [Primary Care Provider] - Disposition Disposition: Acute Care Hospital [facility]
[2022-12-05 09:02] LABS: Anisocytosis 2+; Differential Comment SCANNED
[2022-12-05 09:03] LABS: Hypochromasia 2+; Polychromasia 1+; Rouleaux 1+
--- NOTE | 2022-12-05 11:20 | HP.PCM.HOS_ITS ---
[facility] - General General Date of Admission: 12/05/22 Date of Service: 12/05/22 Chief Complaint: GI bleed HPI Narrative ESTELLA SU, is a 62 F who presents with rectal bleeding. Symptoms began yesterday and persisted to today. Similar to when she was here earlier this month. No abdominal pain. Patient presented emergency room and found to have hemoglobin of 5.8. Patient has been ordered 2 units of packed red blood cells which she is not received yet. Patient has a history of a stent placed in February. Has been taking clopidogrel during this whole time but just started taking aspirin and prednisone yesterday. [facility] Medical History Acid reflux Anemia Anemia due to blood loss Anxiety Breast cyst Cancer Cardiology follow-up encounter Carpal tunnel syndrome Diabetes Dietary restriction Erythromelalgia Fibromyalgia Foot fracture, left Foot fracture, right Former smoker Gastric reflux Gastroenteritis Hepatitis History of chronic kidney disease History of diabetes mellitus History of echocardiogram History of heart attack History of renal disease History of steroid therapy Hypertension Infectious mononucleosis Injury of head and neck Leg cramps Low iron Measles Migraines Neuropathy Osteopenia Post-menopausal Rheumatoid arthritis Seasonal allergies Shingles Shortness of breath on exertion Small fiber neuropathy Thyroid disease UTI (urinary tract infection) Home Medications amlodipine 5 mg tablet 5 mg PO LUNCH BP 04/02/22 [History Last Taken 12/04/22] aspirin 81 mg tablet,delayed release (Adult Aspirin Regimen) 81 mg PO DAILY HEART 04/02/22 [History Last Taken 12/04/22] nystatin 100,000 unit/gram topical powder (Nystop) 100,000 gm topical PRN PRN Skin Cleansing 04/02/22 [History Last Taken Unknown] biotin 5,000 mcg disintegrating tablet 15,000 mcg PO DAILY SUPPLEMENT 08/26/22 [History Last Taken 12/04/22] butalbital 50 mg-acetaminophen 325 mg-caffeine 40 mg-codeine 30 mg cap 1 cap PO Q4H PRN Pain 08/26/22 [History Last Taken 1 Week Ago ~11/08/22] valacyclovir 1 gram tablet (Valtrex) 1,000 mg PO DAILY PRN outbreak 08/26/22 [History Last Taken Unknown] vitamin B complex (B Complex-Vitamin B12 tablet) 1 tab PO DAILY SUPPLEMENT 08/26/22 [History Last Taken 12/04/22] lisinopril 5 mg tablet 5 mg PO QHS BP 10/31/22 [History Last Taken 12/04/22] carvedilol 3.125 mg tablet 3.125 mg PO BID BP/HEART 11/05/22 [History Last Taken 12/04/22] clopidogrel 75 mg tablet 75 mg PO DAILY BLOOD THINNER 11/05/22 [History Last Taken 12/04/22] glipizide 10 mg tablet, extended release 24 hr 10 mg PO BID DIABETIC 11/05/22 [History Last Taken 12/04/22] levothyroxine 88 mcg tablet (Euthyrox) 88 mcg PO DAILY THYROID 11/05/22 [History Last Taken 12/05/22] rosuvastatin 10 mg tablet (Crestor) 10 mg PO QHS CHOLESTEROL 11/05/22 [History Last Taken 12/04/22] venlafaxine 150 mg capsule,extended release 24 hr (Effexor XR) 150 mg PO DAILY DEPRESSION 11/05/22 [History Last Taken 12/04/22] venlafaxine 75 mg tablet 75 mg PO DAILY DEPRESSION 11/05/22 [History Last Taken 12/04/22] hydroxychloroquine 200 mg tablet 200 mg PO BID RA #60 tabs 11/06/22 [Rx Last Taken 12/04/22] ondansetron HCl 8 mg tablet 8 mg PO Q6H 11/15/22 [History Last Taken 12/05/22] pantoprazole 40 mg tablet,delayed release 40 mg PO DAILY 30 days #30 tabs 11/27/22 [Rx Last Taken 12/04/22] sennosides 8.6 mg-docusate sodium 50 mg tablet (Stool Softener-Stimulant Laxative) 2 tab PO BID PRN PRN Constipation #0 tabs 11/27/22 [Rx Last Taken 12/04/22] azithromycin 250 mg tablet See Rx Instructions PO .COMPLEX #6 tabs 12/04/22 [Rx Last Taken 12/04/22] fluticasone propionate 50 mcg/actuation nasal spray,suspension 1 spray intranasal BID PRN Sinus Symptoms 12/05/22 [History Last Taken 12/04/22] Allergy/AdvReac Type Severity Reaction Status Date / Time Iodinated Contrast Media Allergy Intermediate Hives Verified 12/05/22 06:25 [IVP dye] Seasonal Allergies: Uncoded Allergy Mild Hives Verified 12/05/22 06:25 levofloxacin [From Levaquin] Allergy PT UNSURE Verified 12/05/22 06:25 OF REACTION liraglutide [From Victoza] Allergy dehydration Verified 12/05/22 06:25 - ended up in hospital Sulfa (Sulfonamide Allergy pt states Verified 12/05/22 06:25 Antibiotics) has [sulfa drugs] tolerated some methylprednisolone AdvReac Intermediate HALLUCINATI Verified 12/05/22 06:25 [From Solu-Medrol] ONS acetaminophen [From Percocet] AdvReac Itching Verified 12/05/22 06:25 adhesive AdvReac Rash Verified 12/05/22 06:25 hydrochlorothiazide AdvReac pt can tke Verified 12/05/22 06:25 tablet, but not capsule hydrocodone AdvReac Itching Verified 12/05/22 06:25 oxycodone [From Percocet] AdvReac Itching Verified 12/05/22 06:25 Family History Grandfather Cancer Heart disease Father Cancer Heart disease Diabetes Uncle Cancer Aunt Cancer Brother Heart disease Surgical History H/O heart artery stent History of lumbar laminectomy Hx of appendectomy Hx of cholecystectomy Hx of colonoscopy Hx of fusion of cervical spine Hx of release of tendon Hx of tonsillectomy Social History Smoking Status: Former smoker alcohol intake: never substance use type: does not use caffeine: Yes Type: carbonated beverages and tea what type of physical activity do you participate in: none seatbelt use: always do you feel safe at home: Yes ROS ROS Narrative All review of systems were negative except as mentioned above in the history of present illness and the other review of systems. Vital Signs Vital Signs Vital Signs: 12/05/22 06:22 12/05/22 09:13 12/05/22 09:26 Temperature 35.6 C L 36.2 C L Temperature Source Temporal Oral Pulse Rate 85 89 88 Respiratory Rate 16 19 H 19 H Blood Pressure 146/57 H 119/51 L 126/55 H Blood Pressure Mean 86 73 78 Pulse Ox 100 93 96 Oxygen Delivery Method Room Air Weight Weight: 80.6 kg Body Mass Index (BMI) 30.4 Physical Exam Const alert and no apparent distress Constitutional Narrative: Pale HEENT normocephalic and head/scalp atraumatic Resp normal respiratory effort, no retractions, no use of accessory muscles and clear to auscultation bilaterally Cardio regular rate, regular rhythm, S1 normal heart sound and S2 normal heart sound Extremity normal to inspection Neuro oriented x3 Results Lab / Micro Data Attestation: I reviewed the patient's lab results. Result Diagrams: 12/05/22 06:27 12/05/22 06:27 Labs: Laboratory Results - last 24 hr 12/05/22 06:27: WBC 9.9, RBC 2.26 L, Hgb 5.8 L*, Hct 19.9 L, MCV 88.1, MCH 25.7 L, MCHC 29.1 L, RDW Std Deviation 55.5 H, RDW Coeff of Emilio 17.5 H, Plt Count 355, MPV 9.8, Immature Gran % (Auto) 0.900, Neut % (Auto) 65.0, Lymph % (Auto) 24.5, [place] % (Auto) 6.7, Eos % (Auto) 2.2, Baso % (Auto) 0.7, Absolute Neuts (auto) 6.5, Absolute Lymphs (auto) 2.43, Nucleated RBC % 0.3, Differential Comment SCANNED, Diff Path Review May foll, Polychromasia 1+, Hypochromasia 2+, Anisocytosis 2+, Rouleaux 1+ 12/05/22 06:27: PT 13.4, INR 1.1, APTT 29.3 12/05/22 06:27: Sodium 144, Potassium 3.9, Chloride 111 H, Carbon Dioxide 28.0, Anion Gap 5, BUN 16, Creatinine 1.03 H, Estim Creat Clear Calc 48.90, Est GFR (MDRD) Af Amer 70, Est GFR (MDRD) Non-Af 58 L, BUN/Creatinine Ratio 15.5, Glucose 197 H, Calcium 8.5 12/05/22 06:27: Blood Type A NEGATIVE, Antibody Screen NEGATIVE 12/05/22 06:27: Crossmatch See Detail Radiology Impression Abdomen/Pelvis CTA 12/05/22 06:49 IMPRESSION: Status post right hemicolectomy. No evidence of active bleeding on this examination. Electronically Signed: Franco Sullivan MD at 8:34 EST , Assessment & Plan Assessment/Plan (1) GI (gastrointestinal bleed): PLAN: Patient had EGD performed on the that showed a single bleeding colonic angiodysplastic lesion. It was injected and treated with heater probe and clipped. Unclear if this is a current source of the bleeding. Patient did have an ileocolonic anastomosis but that appeared to be intact and was seen by general surgery at that time Unlikely this is upper. Case discussed with Dr. Suarez will be seeing the patient in consultation. CT angiogram of the abdomen pelvis showed no evidence of active bleeding Clear liquid diet (2) Acute blood loss anemia: PLAN: Secondary to GI bleed Goal hemoglobin is around 8 given her history of coronary artery disease. Patient has been ordered 2 units of packed red blood cells PLAN: Plan Chronic conditions * Coronary artery disease: Patient had stent placed in February. Hold clopidogrel for 48 hours. Continue to hold aspirin. Continue with carvedilol * Diabetes mellitus type 2: Hold glipizide. Sliding scale insulin * Rheumatoid arthritis: Continue with hydroxychloroquine * Hypothyroidism: Continue levothyroxine * Hypertension: Stable. Continue with lisinopril and amlodipine with hold parameters. VTE prophylaxis: Chemical prophylaxis contraindicated in light of the hemorrhage. SCDs. Charges/Coding Visit Charges Inpatient E&M: 94701 Init Hosp L3
[2022-12-05] MEDS: Contrast Allergy Safety Check IV (11:42)
[2022-12-05] MEDS: 0.9% Saline Lock 10 ML Syringe IV ×2 (11:43→22:07)
[2022-12-05] MEDS: amLODIPine 5 MG Tablet PO (13:15)
[2022-12-05] MEDS: Nystatin Powder 15gm Bottle 1 APPLIC TOPICAL (13:17)
--- NOTE | 2022-12-05 14:56 | CHAPLAIN ---
Type of Pastoral Visit _x__ Initial Visit ___ Follow-up Visit ___ On-call Visit ___ General Patient Visit ___ Spiritual Assessment ___ Family Conference ___ Bereavement ___ Rapid Response ___ Code Blue ___ Other (describe below) Pastoral Care Referral From _x__ Patient ___ Family ___ Nurse ___ Physician ___ Photocopying Machine Operator ___ Professor Of Sociology ___ Other (describe below) Sacrament/Intervention _x__ Active listening ___ Anointing ___ Religion ___ Bereavement ___ Communion ___ Guillermina exploration ___ ___ Life review _x__ Prayer ___ Reconciliation ___ Sacrament of Sick _x__ Supportive presence ___ Wedding ___ Other (describe below) Pastoral Comments patient gives update since last admission; pt appears with a good attitude but admits that the answers are desirable for her ongoing issues; pt has had health challenges in recent years and has great support from her mother; pt is talkative and welcoming to prayer and presence
[2022-12-05 15:03] LABS: Absolute Lymphocyte Count 1.37 X10^3/uL (0.83-4.51); Absolute Neutrophil Count 10.2 X10^3/uL (2.0-7.7); Basophil# 0.07 X10^3/uL; Basophil% 0.6 % (0-1); Eosinophil# 0.01 X10^3/uL; Eosinophils% 0.1 % (0-5); Hematocrit 22.9 % (37-47); Hemoglobin 6.7 g/dL (12.0-15.0); Lymphocyte # 1.37 X10^3/ul (0.83-4.51); Lymphocyte % 11.3 % (19-41); Mean Corp Hgb Conc 29.3 g/dL (32-36); Mean Corpuscular Hgb 26.3 pg (27.0-32.0); Mean Corpuscular Volume 89.8 fL (81-99); Mean Platelet Vol. 9.4 fl (6.2-12.0); Monocyte# 0.38 X10^3/uL; Monocyte% 3.1 % (0-10); NRBC Flagged by Analyzer 0.2 % (0-5); Neutrophil # 10.22 X10^3/uL (2.7-7.7); Neutrophil % 84.2 % (47-70); Platelet Count 307 K/mm3 (150-450); RBC Distribution Width CV 16.7 % (11.6-14.6); RBC Distribution Width SD 53.2 fl (35.1-43.9); Red Blood Count 2.55 M/mm3 (4.2-5.4); White Blood Count 12.1 K/mm3 (4.4-11.0)
[2022-12-05] MEDS: 0.9% Normal Saline 1,000 ML 100 ML IV (17:37)
[2022-12-05] MEDS: Ensure Clear 120 ML Liquid PO (17:44)
[2022-12-05 18:01] LABS: Bedside Glucose 95 mg/dL (74-106)
--- NOTE | 2022-12-05 18:14 | EX.PCM.CON.G ---
HPI Consult Data Date of Consult: 12/05/22 HPI Narrative Reason for Consultation: GI bleed HPI Narrative: ESTELLA SU, is a 62 F who presents with lower GI bleed and hypotension. She recently underwent right hemicolectomy with [id number] primary anastomosis. .? Following this she developed a GI bleed that was thought to be secondary at the anastomosis site. The anastomotic site was treated with APC. After that she received blood and iron transfusion. She had a repeat colonoscopy after developing another GI bleed. She had a CT angiography that did show active bleeding in the descending colon. She had the lesion injected with epinephrine, cauterized and clipped the source of bleeding.? She states she does have a history of cardiovascular disease and has 3 stents and secondary to this takes aspirin and Plavix.? She states she began the medication just yesterday and then developed bouts of blood in the stool.? She states the blood is bright red in color.? She states with this she feels lightheaded and dizzy. .? She denies any chest pain or shortness of breath or abdominal pain.? CT angiography did not show a repeat bleed. [facility] Medical History Acid reflux Anemia Anemia due to blood loss Anxiety Breast cyst Cancer Cardiology follow-up encounter Carpal tunnel syndrome Diabetes Dietary restriction Erythromelalgia Fibromyalgia Foot fracture, left Foot fracture, right Former smoker Gastric reflux Gastroenteritis Hepatitis History of chronic kidney disease History of diabetes mellitus History of echocardiogram History of heart attack History of renal disease History of steroid therapy Hypertension Infectious mononucleosis Injury of head and neck Leg cramps Low iron Measles Migraines Neuropathy Osteopenia Post-menopausal Rheumatoid arthritis Seasonal allergies Shingles Shortness of breath on exertion Small fiber neuropathy Thyroid disease UTI (urinary tract infection) Home Medications amlodipine 5 mg tablet 5 mg PO LUNCH BP 04/02/22 [History Last Taken 12/04/22] aspirin 81 mg tablet,delayed release (Adult Aspirin Regimen) 81 mg PO DAILY HEART 04/02/22 [History Last Taken 12/04/22] nystatin 100,000 unit/gram topical powder (Nystop) 100,000 gm topical PRN PRN Skin Cleansing 04/02/22 [History Last Taken Unknown] biotin 5,000 mcg disintegrating tablet 15,000 mcg PO DAILY SUPPLEMENT 08/26/22 [History Last Taken 12/04/22] butalbital 50 mg-acetaminophen 325 mg-caffeine 40 mg-codeine 30 mg cap 1 cap PO Q4H PRN Pain 08/26/22 [History Last Taken 1 Week Ago ~11/08/22] valacyclovir 1 gram tablet (Valtrex) 1,000 mg PO DAILY PRN outbreak 08/26/22 [History Last Taken Unknown] vitamin B complex (B Complex-Vitamin B12 tablet) 1 tab PO DAILY SUPPLEMENT 08/26/22 [History Last Taken 12/04/22] lisinopril 5 mg tablet 5 mg PO QHS BP 10/31/22 [History Last Taken 12/04/22] carvedilol 3.125 mg tablet 3.125 mg PO BID BP/HEART 11/05/22 [History Last Taken 12/04/22] clopidogrel 75 mg tablet 75 mg PO DAILY BLOOD THINNER 11/05/22 [History Last Taken 12/04/22] glipizide 10 mg tablet, extended release 24 hr 10 mg PO BID DIABETIC 11/05/22 [History Last Taken 12/04/22] levothyroxine 88 mcg tablet (Euthyrox) 88 mcg PO DAILY THYROID 11/05/22 [History Last Taken 12/05/22] rosuvastatin 10 mg tablet (Crestor) 10 mg PO QHS CHOLESTEROL 11/05/22 [History Last Taken 12/04/22] venlafaxine 150 mg capsule,extended release 24 hr (Effexor XR) 150 mg PO DAILY DEPRESSION 11/05/22 [History Last Taken 12/04/22] venlafaxine 75 mg tablet 75 mg PO DAILY DEPRESSION 11/05/22 [History Last Taken 12/04/22] hydroxychloroquine 200 mg tablet 200 mg PO BID RA #60 tabs 11/06/22 [Rx Last Taken 12/04/22] ondansetron HCl 8 mg tablet 8 mg PO Q6H 11/15/22 [History Last Taken 12/05/22] pantoprazole 40 mg tablet,delayed release 40 mg PO DAILY 30 days #30 tabs 11/27/22 [Rx Last Taken 12/04/22] sennosides 8.6 mg-docusate sodium 50 mg tablet (Stool Softener-Stimulant Laxative) 2 tab PO BID PRN PRN Constipation #0 tabs 11/27/22 [Rx Last Taken 12/04/22] azithromycin 250 mg tablet See Rx Instructions PO .COMPLEX #6 tabs 12/04/22 [Rx Last Taken 12/04/22] fluticasone propionate 50 mcg/actuation nasal spray,suspension 1 spray intranasal BID PRN Sinus Symptoms 12/05/22 [History Last Taken 12/04/22] Allergy/AdvReac Type Severity Reaction Status Date / Time Iodinated Contrast Media Allergy Intermediate Hives Verified 12/05/22 06:25 [IVP dye] Seasonal Allergies: Uncoded Allergy Mild Hives Verified 12/05/22 06:25 levofloxacin [From Levaquin] Allergy PT UNSURE Verified 12/05/22 06:25 OF REACTION liraglutide [From Victoza] Allergy dehydration Verified 12/05/22 06:25 - ended up in hospital Sulfa (Sulfonamide Allergy pt states Verified 12/05/22 06:25 Antibiotics) has [sulfa drugs] tolerated some methylprednisolone AdvReac Intermediate HALLUCINATI Verified 12/05/22 06:25 [From Solu-Medrol] ONS acetaminophen [From Percocet] AdvReac Itching Verified 12/05/22 06:25 adhesive AdvReac Rash Verified 12/05/22 06:25 hydrochlorothiazide AdvReac pt can tke Verified 12/05/22 06:25 tablet, but not capsule hydrocodone AdvReac Itching Verified 12/05/22 06:25 oxycodone [From Percocet] AdvReac Itching Verified 12/05/22 06:25 Family History Grandfather Cancer Heart disease Father Cancer Heart disease Diabetes Uncle Cancer Aunt Cancer Brother Heart disease Surgical History H/O heart artery stent History of lumbar laminectomy Hx of appendectomy Hx of cholecystectomy Hx of colonoscopy Hx of fusion of cervical spine Hx of release of tendon Hx of tonsillectomy Social History Smoking Status: Former smoker alcohol intake: never substance use type: does not use caffeine: Yes Type: carbonated beverages and tea what type of physical activity do you participate in: none seatbelt use: always do you feel safe at home: Yes ROS ROS Narrative All review of systems were negative except as mentioned above in the history of present illness and the other review of systems. Physical Exam Const alert and no apparent distress Constitutional Narrative: Pale HEENT normocephalic and head/scalp atraumatic Resp normal respiratory effort, no retractions, no use of accessory muscles and clear to auscultation bilaterally Cardio regular rate, regular rhythm, S1 normal heart sound and S2 normal heart sound Extremity normal to inspection Neuro oriented x3 Medical Records Data Medical Nutrition Assessment Dietitian: Malnutrition Criteria Met Start: 12/05/22 14:12 Freq: Status: Active Protocol: Document 12/05/22 14:12 (Rec: 12/05/22 14:12 [id number]) Nutrition Malnutrition Evidence of Malnutrition Exists Yes Malnutrition (moderate): Acute Illness/Injury Evidenced By Suboptimal Energy Intake ( Moderate),Weight Loss ( Moderate) Clinical Problem Acute Disease or Injury Related Malnutrition Etiology moderate, acute malnutrition related to inadequate energy intake d/t GI dysfunction Signs/Symptoms as evidenced by unintentional 8.8#/5% wt loss < 1 month; estimated PO intake meeting < 50% of estimated energy needs for more than 7 days over past 1 month Status Active Problem Recommendation Dietitian Recommendations/Changes recommend advance diet as tolerated to regular; will add ensure w/ medpass for additional calories/protein if consumed given evidence of acute malnutrition Lab / Micro Data Result Diagrams: 12/05/22 14:54 12/05/22 06:27 Labs: Laboratory Results - last 24 hr 12/05/22 06:27: WBC 9.9, RBC 2.26 L, Hgb 5.8 L*, Hct 19.9 L, MCV 88.1, MCH 25.7 L, MCHC 29.1 L, RDW Std Deviation 55.5 H, RDW Coeff of Emilio 17.5 H, Plt Count 355, MPV 9.8, Immature Gran % (Auto) 0.900, Neut % (Auto) 65.0, Lymph % (Auto) 24.5, [place] % (Auto) 6.7, Eos % (Auto) 2.2, Baso % (Auto) 0.7, Absolute Neuts (auto) 6.5, Absolute Lymphs (auto) 2.43, Nucleated RBC % 0.3, Differential Comment SCANNED, Diff Path Review May foll, Polychromasia 1+, Hypochromasia 2+, Anisocytosis 2+, Rouleaux 1+ 12/05/22 06:27: PT 13.4, INR 1.1, APTT 29.3 12/05/22 06:27: Sodium 144, Potassium 3.9, Chloride 111 H, Carbon Dioxide 28.0, Anion Gap 5, BUN 16, Creatinine 1.03 H, Estim Creat Clear Calc 48.90, Est GFR (MDRD) Af Amer 70, Est GFR (MDRD) Non-Af 58 L, BUN/Creatinine Ratio 15.5, Glucose 197 H, Calcium 8.5 12/05/22 06:27: Blood Type A NEGATIVE, Antibody Screen NEGATIVE 12/05/22 06:27: Crossmatch See Detail 12/05/22 14:54: WBC 12.1 H, RBC 2.55 L, Hgb 6.7 L, Hct 22.9 L, MCV 89.8, MCH 26.3 L, MCHC 29.3 L, RDW Std Deviation 53.2 H, RDW Coeff of Emilio 16.7 H, Plt Count 307, MPV 9.4, Immature Gran % (Auto) 0.700, Neut % (Auto) 84.2 H, Lymph % (Auto) 11.3 L, [place] % (Auto) 3.1, Eos % (Auto) 0.1, Baso % (Auto) 0.6, Absolute Neuts (auto) 10.2 H, Absolute Lymphs (auto) 1.37, Nucleated RBC % 0.2 12/05/22 17:39: POC Glucose 95 Radiology Impression Abdomen/Pelvis CTA 12/05/22 06:49 IMPRESSION: Status post right hemicolectomy. No evidence of active bleeding on this examination. Electronically Signed: Franco Sullivan MD at 8:34 EST , Assessment & Plan Assessment/Plan (1) Acute lower gastrointestinal bleeding: (2) Anemia due to blood loss: PLAN: Plan This is a 62-year-old female is being admitted for acute lower GI bleed 1. Acute lower GI bleed with with acute blood loss anemia : Patient is being admitted in PCU. Her baseline hemoglobin runs around 10 to 11 g but dropped to 9 g today. She is A negative blood group. IV fluid resuscitation. Hemodynamically, BP and heart rate in normal range. Plan for colonoscopy. IV pantoprazole 40 mg 1 dose now and then oral from tomorrow 11/24: Colonoscopy reported discontinuous nonbleeding ulcerated mucosa with no stigmata of recent bleeding. 2 sessile polyps in sigmoid colon and splenic flexure removed by hot snare. End-to-side colocolonic anastomosis characterized by hemorrhagic appearance, ulceration, friable mucosa with intact staple line. This was discussed with the patient and her mother near the bedside. No aspirin ibuprofen naproxen or other NSAIDs. Plavix from tomorrow a.m. as patient had 3 stents during last week of April. We will consider aspirin range of motion after 5 days. 1 dose of IV iron ordered. Hemoglobin dropped to 8.1 11/25: Patient had another bout of moderate amount of lower GI bleed. 1 unit of PRBC transfusion done. Repeat hemoglobin tomorrow AM. Patient on regular diet. 11/26: Patient had severe lower GI bleed. Hemoglobin 7.8/25%. Patient was urgently taken to colonoscopy. Patent end-to-side ileocolonic anastomosis with healthy mucosa. Single bleeding colonic angiodysplastic lesion treated with heater probe and clip was placed. Blood in and around RS colon. 12/05: Hemoglobin down to 5.8. She is given 2 units of packed red blood cells recommend to repeat colonoscopy to find source of bleeding. 2. Recent history of laparoscopic right hemicolectomy and adhesiolysis for hepatic flexure colon cancer with postop ileus: Currently patient passing flatus. . 11/24: Discussed with surgeon. Patient passing flatus. 11/25: Surgeons note reviewed. Colonoscopy showed significant fibrillatory of rectum with linear injuries undetermined etiology. Dr. Flood did not tolerate oral metronidazol/Proctofoam although he suggested. 3. Type 2 diabetes mellitus with history of hypoglycemia: Glucose in BMP is 159. Accu-Chek before meals and at bedtime coverage with sliding scale. Started on clear liquid diet 1800 ADA diet. 11/24: Glucose is controlled about 140-200. 4. Hypertension: Patient Home medications are amlodipine, carvedilol and lisinopril. Hold lisinopril and amlodipine but continue carvedilol with holding parameters. We will resume rest of antihypertensive later on BP is controlled. 5. Coronary artery status positive stents:: Continue statin but hold aspirin and Plavix. She follows outside cardiology consultants, Dr. Fernandez in [place]. Last cardiac stent was in last week of April 2022 less than 1 year. She had all 3 stents placed at one time. 6. Dyslipidemia on statin, hypothyroidism on Synthroid, and anxiety and depression on venlafaxine: Home medications reconciliation done. Charges/Coding Visit Charges Inpatient E&M: 86196 Init Hosp L3
[2022-12-05] MEDS: Bisacodyl 5 MG Tablet 20 MG PO (20:11)
[2022-12-05] MEDS: Polyethylene Glycol 3350 BOWEL PREP PO (20:11)
[2022-12-05] MEDS: Ondansetron 4 MG/2 ML Vial IV (22:06)
[2022-12-05] MEDS: Lisinopril 5 MG Tablet PO (22:07)
[2022-12-05] MEDS: Hydroxychloroquine 200 MG Tablet PO (22:07)
[2022-12-05] MEDS: Carvedilol 3.125 MG TABLET PO (22:08)
[2022-12-05 22:36] LABS: Bedside Glucose 121 mg/dL (74-106)
[2022-12-06] VITALS (19 sets, daily range): BP systolic 115–156; BP diastolic 46–64; PULSE 74–91; RESP 14–17; TEMP 36.6–37.2; O2SAT 92–100
[2022-12-06] MEDS: 0.9% Normal Saline 1,000 ML 100 ML IV ×2 (03:36→08:33)
--- NOTE | 2022-12-06 05:55 | EKG12_ITS ---
Test Reason : PRE OP Blood Pressure : / mmHG Vent. Rate : 074 BPM Atrial Rate : 074 BPM P-R Int : 196 ms QRS Dur : 154 ms QT Int : 448 ms P-R-T Axes : 038 -52 009 degrees QTc Int : 497 ms Normal sinus rhythm Right bundle branch block Left anterior fascicular block Bifascicular block Minimal voltage criteria for LVH, may be normal variant ( R in aVL ) Abnormal ECG Confirmed by SREEKANTH JACOB, MICAH ([id number]), editorial project manager OWEN PÉREZ ([id number]) on 12/09/2022 11:19:27 AM Referred By: SAMEERA Confirmed By:MICAH STACK MD
[2022-12-06 06:19] LABS: Absolute Lymphocyte Count 2.89 X10^3/uL (0.83-4.51); Absolute Neutrophil Count 7.1 X10^3/uL (2.0-7.7); Basophil# 0.08 X10^3/uL; Basophil% 0.7 % (0-1); Eosinophil# 0.21 X10^3/uL; Eosinophils% 1.9 % (0-5); Hematocrit 19.4 % (37-47); Lymphocyte # 2.89 X10^3/ul (0.83-4.51); Lymphocyte % 26.2 % (19-41); Mean Corp Hgb Conc 30.9 g/dL (32-36); Mean Corpuscular Hgb 27.6 pg (27.0-32.0); Mean Corpuscular Volume 89.4 fL (81-99); Mean Platelet Vol. 9.8 fl (6.2-12.0); Monocyte# 0.65 X10^3/uL; Monocyte% 5.9 % (0-10); NRBC Flagged by Analyzer 0.6 % (0-5); Neutrophil % 64.6 % (47-70); Platelet Count 257 K/mm3 (150-450); RBC Distribution Width CV 16.7 % (11.6-14.6); RBC Distribution Width SD 54.6 fl (35.1-43.9); Red Blood Count 2.17 M/mm3 (4.2-5.4)
--- NOTE | 2022-12-06 06:30 | COLBX_PTH ---
PATIENT: ESTELLA SU LOC: PCU U#:[id number] AGE/SX: 62/F ROOM: [facility] RE12/05/[address]: Dr. Ledy Mcfarland MD : 1960 BED: 1 DIS: 12/09/2022 SPEC #: [id number] RECD: 12/06/22 12:02 STATUS: JAYSHREE REQ #: [id number] LANRE: 12/06/22 06:[address]: Shaun Suarez DEPT: SURGICAL PATHOLOGY RECD BY: Marycarmen De La Vega ENTERED: 12/06/22 13:03 SP TYPE: COLON BX OTHR DR: DO Dr. Kimi Bro MD Tissues: Sigmoid colon biopsy Procedures: Surgery Specimen Level IV Comments: @ Ordering doctor for SUIV edited from to @ by RGOOD at 12/06/22 1348 @ Submitting doctor edited from to @ by RGOOD at 12/06/22 1348 HEADER OPERATION: Colonoscopy (MAC), hemostasis, polypectomy PRE-OP DIAGNOSIS: Acute lower GI bleeding, anemia due to blood loss TISSUE SUBMITTED: Sigmoid polyp MICROSCOPIC DIAGNOSIS Sigmoid colon polyp, biopsy: Fragments of benign colonic mucosa with marked thermal artifact. See comment. AM:vicente 12/09/2022 COMMENT A tubular adenoma is favored. Clinical correlation is suggested. Reference is made to the patient's previous colonic polyp at hepatic flexure biopsy from 11/05/22 ([id number]) in which invasive well-differentiated adenocarcinoma was identified. MICROSCOPIC DESCRIPTION Slides are reviewed. GROSS DESCRIPTION Received in fixative is one container labeled with the patient's name and designated sigmoid polyp. The specimen consists of multiple irregular fragments of emery soft tissue mixed with fecal material that in aggregate measure 0.5 x 0.2 x 0.1 cm. The specimen is totally submitted in one cassette. / SJ:vicente 12/06/2022 TC:5 CPT: 83944
[2022-12-06 06:44] LABS: Anion Gap 6 (5-15); BUN 11 mg/dL (7-18); BUN/Creat Ratio 11.2 RATIO (10-20); Chloride 114 mmol/L (98-107); Creatinine, Serum 0.98 mg/dL (0.55-1.02); EST Glomerular Filtration Rate 61 mL/min (>60); Est Glom Filt Rate - Afr Amer 74 mL/min (>60); Glucose 162 mg/dL (74-106); Potassium 3.5 mmol/L (3.5-5.1); Sodium Level 145 mmol/L (136-145)
[2022-12-06 06:51] LABS: Bedside Glucose 153 mg/dL (74-106)
[2022-12-06 06:53] LABS: Differential Indicated SCAN CRITERIA MET
[2022-12-06 06:54] LABS: Differential Comment SCANNED; Hypochromasia 2+; Polychromasia RARE
--- NOTE | 2022-12-06 06:57 | NURSING ---
Critical result of a hemoglobin 6.0 called from lab at 0650. Patient had already gone down for colonoscopy. home health clinical liaison called in AC to make aware.
--- NOTE | 2022-12-06 07:20 | OP.COLON_ITS ---
Patient Name: Lisbeth Craven Procedure Date: 12/06/2022 6:23 AM Date of : 1960 Age: 62 Procedure: Colonoscopy Indications: Hematochezia Providers: Shaun Suarez DO Medicines: Monitored Anesthesia Care Patient Profile: This is a 62 year old female. Refer to note in patient chart for documentation of history and physical. Last Colonoscopy: within the past month. Complications: No immediate complications. Procedure: Pre-Anesthesia Assessment: - Prior to the procedure, a History and Physical was performed, and patient medications and allergies were reviewed. The patient is competent. The risks and benefits of the procedure and the sedation options and risks were discussed with the patient. All questions were answered and informed consent was obtained. Patient identification and proposed procedure were verified by the physician. Mental Status Examination: normal. Prophylactic Antibiotics: The patient does not require prophylactic antibiotics. Prior Anticoagulants: The patient has taken no previous anticoagulant or antiplatelet agents. ASA Grade Assessment: II - A patient with mild systemic disease. After reviewing the risks and benefits, the patient was deemed in satisfactory condition to undergo the procedure. The anesthesia plan was to use monitored anesthesia care (MAC). Immediately prior to administration of medications, the patient was re-assessed for adequacy to receive sedatives. The heart rate, respiratory rate, oxygen saturations, blood pressure, adequacy of pulmonary ventilation, and response to care were monitored throughout the procedure. The physical status of the patient was re-assessed after the procedure. After I obtained informed consent, the scope was passed under direct vision. Throughout the procedure, the patient's blood pressure, pulse, and oxygen saturations were monitored continuously. The colonoscope was introduced through the anus and advanced to the transverse colon to examine an anastomosis. This was the intended extent. The colonoscopy was performed without difficulty. The patient tolerated the procedure well. The quality of the bowel preparation was good. Scope In: 6:41:49 AM Scope Out: 7:09:47 AM Total Procedure Duration Time 0 hours 27 minutes 58 seconds Findings: The perianal and digital rectal examinations were normal. There was evidence of a prior end-to-side ileo-colonic anastomosis in the mid transverse colon. This was patent and was characterized by a hemorrhagic appearance and an intact staple line. The anastomosis was traversed. Coagulation for hemostasis using argon plasma at 0.3 liters/minute and 15 harris was successful. To prevent bleeding post-intervention, three hemostatic clips were successfully placed. There was no bleeding at the end of the procedure. There was no stigmata from previous bleeding site and the descending colon. Impression: - Patent end-to-side ileo-colonic anastomosis, characterized by a hemorrhagic appearance and an intact staple line. Treated with argon plasma coagulation (APC). Clips were placed. - No specimens collected. Recommendation: - [facility]. - Resume regular diet. - Continue present medications. - Repeat colonoscopy in 1 year for surveillance based on personal history of colon cancer. Procedure Code(s): --- Professional --- 76821, 52, Colonoscopy, flexible; with control of bleeding, any method CPT copyright 2017 [employer]. All rights reserved. The codes documented in this report are preliminary and upon practical nurse review may be revised to meet current compliance requirements. Shaun Suarez DO 12/06/2022 7:19:53 AM This report has been signed electronically. Number of Addenda: 0 Note Initiated On: 12/06/2022 6:23 AM
--- NOTE | 2022-12-06 07:21 | OP.CCLET_ITS ---
12/06/2022 Kimi López [facility] [address] [place] [address] Re : Colonoscopy procedure for Lisbeth Craven Dear Dr. López This procedure was performed on Tuesday, December 06, 2022. My impressions and recommendations are as follows: Impressions : - Patent end-to-side ileo-colonic anastomosis, characterized by a hemorrhagic appearance and an intact staple line. Treated with argon plasma coagulation (APC). Clips were placed. - No specimens collected. Recommendations : - Return patient to [facility] care. - Resume regular diet. - Continue present medications. - Repeat colonoscopy in 1 year for surveillance based on personal history of colon cancer. My findings are described in the full procedure note, which is enclosed. If I can be of further assistance, please feel free to contact me at . Sincerely, Shaun Friend, 12/06/2022 7:19:53 AM This report has been signed electronically.
[2022-12-06 08:09] LABS: Hemoglobin A1c < 3.8 % (3.8-5.6)
--- NOTE | 2022-12-06 08:16 | PN.HOSP_ITS ---
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 But did undergo her colonoscopy today. Objective Data Objective Data Vital Signs: Vital Signs Temp Pulse Resp BP Pulse Ox O2 Del Method 36.7 C 76 17 149/55 H 94 Room Air 12/06/22 07:56 12/06/22 07:56 12/06/22 07:56 12/06/22 07:56 12/06/22 07:56 12/06/22 07:56 Oxygen Delivery Method Room Air Weight: 80.6 kg Body Mass Index (BMI) 30.4 Intake & Output: Intake and Output for Last 24 Hours 12/04/22 12/05/22 12/06/22 23:59 23:59 23:59 Intake Total 1845 / 1845 Balance 1845 / 1845 Medical Nutrition Assessment Dietitian: Malnutrition Criteria Met Start: 12/05/22 14:12 Freq: Status: Active Protocol: Document 12/05/22 14:12 AG (Rec: 12/05/22 14:12 [id number]) Nutrition Malnutrition Evidence of Malnutrition Exists Yes Malnutrition (moderate): Acute Illness/Injury Evidenced By Suboptimal Energy Intake ( Moderate),Weight Loss ( Moderate) Clinical Problem Acute Disease or Injury Related Malnutrition Etiology moderate, acute malnutrition related to inadequate energy intake d/t GI dysfunction Signs/Symptoms as evidenced by unintentional 8.8#/5% wt loss < 1 month; estimated PO intake meeting < 50% of estimated energy needs for more than 7 days over past 1 month Status Active Problem Recommendation Dietitian Recommendations/Changes recommend advance diet as tolerated to regular; will add ensure w/ medpass for additional calories/protein if consumed given evidence of acute malnutrition Lab / Micro Data Result Diagrams: 12/06/22 05:40 12/06/22 05:40 Labs: Laboratory Results - last 24 hr 12/05/22 06:27: Differential Comment SCANNED, Diff Path Review May foll, Polychromasia 1+, Hypochromasia 2+, Anisocytosis 2+, Rouleaux 1+ 12/05/22 06:27: Crossmatch See Detail 12/05/22 14:54: WBC 12.1 H, RBC 2.55 L, Hgb 6.7 L, Hct 22.9 L, MCV 89.8, MCH 26.3 L, MCHC 29.3 L, RDW Std Deviation 53.2 H, RDW Coeff of Emilio 16.7 H, Plt Count 307, MPV 9.4, Immature Gran % (Auto) 0.700, Neut % (Auto) 84.2 H, Lymph % (Auto) 11.3 L, [place] % (Auto) 3.1, Eos % (Auto) 0.1, Baso % (Auto) 0.6, Absolute Neuts (auto) 10.2 H, Absolute Lymphs (auto) 1.37, Nucleated RBC % 0.2 12/05/22 17:39: POC Glucose 95 12/05/22 22:05: POC Glucose 121 H 12/06/22 05:40: WBC 11.0, RBC 2.17 L, Hgb 6.0 L*, Hct 19.4 L, MCV 89.4, MCH 27.6, MCHC 30.9 L D, RDW Std Deviation 54.6 H, RDW Coeff of Emilio 16.7 H, Plt Count 257, MPV 9.8, Immature Gran % (Auto) 0.700, Neut % (Auto) 64.6, Lymph % (Auto) 26.2, [place] % (Auto) 5.9, Eos % (Auto) 1.9, Baso % (Auto) 0.7, Absolute Neuts (auto) 7.1, Absolute Lymphs (auto) 2.89, Nucleated RBC % 0.6, Differential Comment SCANNED, Diff Path Review May foll, Polychromasia RARE, Hypochromasia 2+ 12/06/22 05:40: Sodium 145, Potassium 3.5, Chloride 114 H, Carbon Dioxide 25.0, Anion Gap 6, BUN 11, Creatinine 0.98, Estim Creat Clear Calc 51.40, Est GFR (MDRD) Af Amer 74, Est GFR (MDRD) Non-Af 61, BUN/Creatinine Ratio 11.2, Glucose 162 H, Calcium 8.0 L 12/06/22 05:40: Hemoglobin A1c < 3.8 L 12/06/22 06:07: POC Glucose 153 H Radiography Diagnostic Testing: Radiology Impression Abdomen/Pelvis CTA 12/05/22 06:49 IMPRESSION: Status post right hemicolectomy. No evidence of active bleeding on this examination. Electronically Signed: Franco Sullivan MD at 8:34 EST , Physical Exam Const alert Resp normal respiratory effort, no retractions, no use of accessory muscles and clear to auscultation bilaterally Cardio regular rate, regular rhythm, S1 normal heart sound and S2 normal heart sound GI normal to inspection, nondistended, normoactive bowel sounds, soft to palpation, non-tender and non-distended Extremity normal to inspection Assessment & Plan Assessment/Plan (1) GI (gastrointestinal bleed): PLAN: Patient had EGD performed on the that showed a single bleeding colonic angiodysplastic lesion. It was injected and treated with heater probe and clipped. Unclear if this is a current source of the bleeding. Patient did have an ileocolonic anastomosis but that appeared to be intact and was seen by general surgery at that time CT angiogram of the abdomen pelvis showed no evidence of active bleeding Colonoscopy on the showed hemorrhagic appearance of the ileocolonic anastomosis. Treated with argon plasma coagulation and clips placed. (2) Acute blood loss anemia: PLAN: Secondary to GI bleed Goal hemoglobin is around 8 given her history of coronary artery disease. Patient received 2 units packed red blood cells on the . 12/06: Hemoglobin 6. Goal hemoglobin given patient's coronary disease is 8. We will transfuse 2 units of packed red blood cells. PLAN: Plan Chronic conditions * Coronary artery disease: Patient had stent placed in February. Hold clopidogrel for 48 hours. Continue to hold aspirin. Continue with carvedilol * Diabetes mellitus type 2: Hold glipizide. Sliding scale insulin * Rheumatoid arthritis: Continue with hydroxychloroquine * Hypothyroidism: Continue levothyroxine * Hypertension: Stable. Continue with lisinopril and amlodipine with hold parameters. VTE prophylaxis: Chemical prophylaxis contraindicated in light of the hemorrhage. SCDs. Disposition: To be determined. Patient be transfused 2 units of blood blood cells today. Monitor overnight. If no further bleeding and hemoglobin is stable then patient can be discharged in the coming days. Charges/Coding Visit Charges Inpatient E&M: 13397 Subs Hosp L2
[2022-12-06] MEDS: Hydroxychloroquine 200 MG Tablet PO ×2 (10:05→21:56)
[2022-12-06] MEDS: Carvedilol 3.125 MG TABLET PO ×2 (10:06→21:55)
[2022-12-06] MEDS: Pantoprazole Sodium 40 MG Tablet PO (10:06)
[2022-12-06] MEDS: Venlafaxine HCl 75 MG Tablet PO (10:06)
[2022-12-06] MEDS: Venlafaxine XR 150 MG Capsule PO (10:06)
[2022-12-06 10:35] LABS: Pathologist Review Reviewed
[2022-12-06] MEDS: Insulin Lispro 100 UNIT/ML INSULN.PEN SC ×2 (11:34→17:47)
[2022-12-06 12:20] LABS: Bedside Glucose 196 mg/dL (74-106)
[2022-12-06] MEDS: amLODIPine 5 MG Tablet PO (12:27)
[2022-12-06 12:33] LABS: Pathologist Review Reviewed
--- NOTE | 2022-12-06 15:15 | CASEMGMT ---
SALLY GARCIA chart review: Patient was admitted 11/23-11/27/22 for lower GI Bleed. See SALLY GARCIA assessment from 11/23/22. Maynor was discharged to home with mother. Patient was provided with resources regarding in-network battery hand. Patient returned 12/05 for GI bleed and hgb of 5.8. Colonoscopy on the showed hemorrhagic appearance of the ileocolonic anastomosis. Treated with argon plasma coagulation and clips placed. Patient states she attended follow-up appt with GI on 11/28 and PCP on 12/04. Patient was taking medications as prescribed. Patient was able to get established with battery hand. Patient denies needs at discharge and will follow-up as directed.
[2022-12-06 17:10] LABS: Bedside Glucose 185 mg/dL (74-106)
[2022-12-06 17:35] LABS: Absolute Lymphocyte Count 2.81 X10^3/uL (0.83-4.51); Absolute Neutrophil Count 8.5 X10^3/uL (2.0-7.7); Basophil% 0.8 % (0-1); Eosinophil# 0.25 X10^3/uL; Hematocrit 27.1 % (37-47); Hemoglobin 8.6 g/dL (12.0-15.0); Lymphocyte # 2.81 X10^3/ul (0.83-4.51); Lymphocyte % 22.5 % (19-41); Mean Corp Hgb Conc 31.7 g/dL (32-36); Mean Corpuscular Hgb 27.9 pg (27.0-32.0); Mean Platelet Vol. 9.3 fl (6.2-12.0); Monocyte% 5.6 % (0-10); NRBC Flagged by Analyzer 0.5 % (0-5); Neutrophil # 8.52 X10^3/uL (2.7-7.7); Neutrophil % 68.4 % (47-70); Platelet Count 228 K/mm3 (150-450); RBC Distribution Width CV 16.4 % (11.6-14.6); RBC Distribution Width SD 52.1 fl (35.1-43.9); Red Blood Count 3.08 M/mm3 (4.2-5.4); White Blood Count 12.5 K/mm3 (4.4-11.0)
[2022-12-06] MEDS: Lisinopril 5 MG Tablet PO (21:56)
[2022-12-06 23:26] LABS: Bedside Glucose 133 mg/dL (74-106)
[2022-12-07] VITALS (9 sets, daily range): BP systolic 113–149; BP diastolic 45–64; PULSE 66–72; RESP 16–18; TEMP 36.9–37.2; O2SAT 93–97
[2022-12-07] MEDS: 0.9% Normal Saline 1,000 ML 100 ML IV ×2 (00:06→10:12)
[2022-12-07] MEDS: Levothyroxine 88 MCG Tablet PO (05:06)
[2022-12-07] MEDS: Acetaminophen 325 MG Tablet 650 MG PO ×2 (05:06→19:30)
[2022-12-07 06:00] LABS: Bedside Glucose 178 mg/dL (74-106)
[2022-12-07] MEDS: Insulin Lispro 100 UNIT/ML INSULN.PEN SC ×3 (06:34→15:34)
[2022-12-07 07:20] LABS: Bedside Glucose 171 mg/dL (74-106)
[2022-12-07 07:25] LABS: Hematocrit 23.6 % (37-47); Hemoglobin 7.3 g/dL (12.0-15.0); Mean Corp Hgb Conc 30.9 g/dL (32-36); Mean Corpuscular Hgb 26.9 pg (27.0-32.0); Mean Corpuscular Volume 87.1 fL (81-99); Mean Platelet Vol. 9.7 fl (6.2-12.0); Platelet Count 198 K/mm3 (150-450); RBC Distribution Width CV 16.9 % (11.6-14.6); RBC Distribution Width SD 52.2 fl (35.1-43.9); Red Blood Count 2.71 M/mm3 (4.2-5.4)
[2022-12-07 08:07] LABS: ALB/GLOB Ratio 0.8 RATIO (0.9-2.4); AST(SGOT) 11 U/L (15-37); Alanine Aminotransfer ALT/SGPT 12 U/L (13-56); Albumin, Serum 2.2 g/dL (3.2-5.0); Alkaline Phosphatase 46 U/L (45-117); Anion Gap 7 (5-15); BUN 10 mg/dL (7-18); BUN/Creat Ratio 11.8 RATIO (10-20); Calcium,Total 8.5 mg/dL (8.5-10.1); Chloride 115 mmol/L (98-107); Creatinine, Serum 0.85 mg/dL (0.55-1.02); EST Glomerular Filtration Rate 72 mL/min (>60); Est Glom Filt Rate - Afr Amer 87 mL/min (>60); Estimated Creatinine Clearance 59.26 ml/min; Globulin 2.6 g/dL (2.2-4.2); Glucose 180 mg/dL (74-106); Potassium 3.6 mmol/L (3.5-5.1); Protein, Total 4.8 g/dL (6.4-8.2); Sodium Level 147 mmol/L (136-145)
[2022-12-07] MEDS: Pantoprazole Sodium 40 MG Tablet PO (10:07)
[2022-12-07] MEDS: Carvedilol 3.125 MG TABLET PO ×2 (10:07→21:33)
[2022-12-07] MEDS: Venlafaxine HCl 75 MG Tablet PO (10:07)
[2022-12-07] MEDS: Venlafaxine XR 150 MG Capsule PO (10:07)
[2022-12-07] MEDS: Hydroxychloroquine 200 MG Tablet PO ×2 (10:08→21:32)
--- NOTE | 2022-12-07 11:10 | PCM.PROGNOTE ---
Subjective Subjective Patient underwent colonoscopy yesterday. She was discovered to have bleeding at the anastomosis site from her recent colon cancer surgery. No other signs of bleeding were seen. Objective Data Objective Data Vital Signs: Vital Signs Temp Pulse Resp BP Pulse Ox O2 Del Method 98.6 F 71 16 145/58 H 95 Room Air 12/07/22 10:02 12/07/22 10:02 12/07/22 10:02 12/07/22 10:02 12/07/22 10:02 12/07/22 10:02 Oxygen Delivery Method Room Air Weight: 177 lb 11.081 oz Body Mass Index (BMI) 30.4 Intake & Output: Intake and Output for Last 24 Hours 12/05/22 12/06/22 12/07/22 23:59 23:59 23:59 Intake Total 1845 / 1845 3893.33 / 4193.33 2398.33 / 2398.33 Balance 1845 / 1845 3893.33 / 4193.33 2398.33 / 2398.33 Medical Nutrition Assessment Dietitian: Malnutrition Criteria Met Start: 12/05/22 14:12 Freq: Status: Active Protocol: Document 12/05/22 14:12 AG (Rec: 12/05/22 14:12 AG [id number]) Nutrition Malnutrition Evidence of Malnutrition Exists Yes Malnutrition (moderate): Acute Illness/Injury Evidenced By Suboptimal Energy Intake ( Moderate),Weight Loss ( Moderate) Clinical Problem Acute Disease or Injury Related Malnutrition Etiology moderate, acute malnutrition related to inadequate energy intake d/t GI dysfunction Signs/Symptoms as evidenced by unintentional 8.8#/5% wt loss < 1 month; estimated PO intake meeting < 50% of estimated energy needs for more than 7 days over past 1 month Status Active Problem Recommendation Dietitian Recommendations/Changes recommend advance diet as tolerated to regular; will add ensure w/ medpass for additional calories/protein if consumed given evidence of acute malnutrition Lab / Micro Data Result Diagrams: 12/07/22 06:17 12/07/22 06:17 Labs: Laboratory Results - last 24 hr 12/05/22 06:27: Crossmatch See Detail 12/05/22 06:27: Crossmatch See Detail 12/06/22 05:40: Diff Path Review Reviewed 12/06/22 11:29: POC Glucose 196 H 12/06/22 16:48: POC Glucose 185 H 12/06/22 17:23: WBC 12.5 H, RBC 3.08 L, Hgb 8.6 L, Hct 27.1 L, MCV 88.0, MCH 27.9, MCHC 31.7 L, RDW Std Deviation 52.1 H, RDW Coeff of Emilio 16.4 H, Plt Count 228, MPV 9.3, Immature Gran % (Auto) 0.700, Neut % (Auto) 68.4, Lymph % (Auto) 22.5, [place] % (Auto) 5.6, Eos % (Auto) 2.0, Baso % (Auto) 0.8, Absolute Neuts (auto) 8.5 H, Absolute Lymphs (auto) 2.81, Nucleated RBC % 0.5 12/06/22 22:05: POC Glucose 133 H 12/07/22 05:03: POC Glucose 178 H 12/07/22 06:17: WBC 12.0 H, RBC 2.71 L, Hgb 7.3 L, Hct 23.6 L, MCV 87.1, MCH 26.9 L, MCHC 30.9 L, RDW Std Deviation 52.2 H, RDW Coeff of Emilio 16.9 H, Plt Count 198, MPV 9.7 12/07/22 06:17: Sodium 147 H, Potassium 3.6, Chloride 115 H, Carbon Dioxide 25.0, Anion Gap 7, BUN 10, Creatinine 0.85, Estim Creat Clear Calc 59.26, Est GFR (MDRD) Af Amer 87, Est GFR (MDRD) Non-Af 72, BUN/Creatinine Ratio 11.8, Glucose 180 H, Calcium 8.5, Total Bilirubin 0.40, AST 11 L, ALT 12 L, Alkaline Phosphatase 46, Total Protein 4.8 L, Albumin 2.2 L, Globulin 2.6, Albumin/Globulin Ratio 0.8 L 12/07/22 06:33: POC Glucose 171 H Physical Exam Const alert Resp normal respiratory effort, no retractions, no use of accessory muscles and clear to auscultation bilaterally Cardio regular rate, regular rhythm, S1 normal heart sound and S2 normal heart sound GI normal to inspection, nondistended, normoactive bowel sounds, soft to palpation, non-tender and non-distended Extremity normal to inspection Assessment & Plan Assessment/Plan (1) GI (gastrointestinal bleed): PLAN: Patient had EGD performed on the that showed a single bleeding colonic angiodysplastic lesion. It was injected and treated with heater probe and clipped. Unclear if this is a current source of the bleeding. Patient did have an ileocolonic anastomosis but that appeared to be intact and was seen by general surgery at that time CT angiogram of the abdomen pelvis showed no evidence of active bleeding Colonoscopy on the showed hemorrhagic appearance of the ileocolonic anastomosis. Treated with argon plasma coagulation and clips placed. (2) Acute blood loss anemia: PLAN: Secondary to GI bleed Goal hemoglobin is around 8 given her history of coronary artery disease. Patient received 2 units packed red blood cells on the . 12/06: Hemoglobin 6. Goal hemoglobin given patient's coronary disease is 8. We will transfuse 2 units of packed red blood cells. 12/07: Hemoglobin is slightly down today but I think that is mostly dilutional. She is not having any signs of bleeding. PLAN: Plan Chronic conditions Coronary artery disease: Patient had stent placed in February. Hold clopidogrel for 48 hours. Continue to hold aspirin. Continue with carvedilol Diabetes mellitus type 2: Hold glipizide. Sliding scale insulin Rheumatoid arthritis: Continue with hydroxychloroquine Hypothyroidism: Continue levothyroxine Hypertension: Stable. Continue with lisinopril and amlodipine with hold parameters. VTE prophylaxis: Chemical prophylaxis contraindicated in light of the hemorrhage. SCDs. Disposition: To be determined. Monitor overnight. If no further bleeding and hemoglobin is stable then patient can be discharged in the coming days. Charges/Coding Visit Charges Inpatient E&M: 92029 [facility] L3
[2022-12-07 11:55] LABS: Bedside Glucose 198 mg/dL (74-106)
[2022-12-07] MEDS: amLODIPine 5 MG Tablet PO (12:16)
--- NOTE | 2022-12-07 15:20 | PN.HOSP_ITS ---
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 No abdominal pain today. Objective Data Objective Data Vital Signs: Vital Signs Temp Pulse Resp BP Pulse Ox O2 Del Method 37.1 C 66 16 125/52 H 93 Room Air 12/07/22 14:29 12/07/22 14:29 12/07/22 14:29 12/07/22 14:29 12/07/22 14:29 12/07/22 14:29 Oxygen Delivery Method Room Air Weight: 80.6 kg Body Mass Index (BMI) 30.4 Intake & Output: Intake and Output for Last 24 Hours 12/05/22 12/06/22 12/07/22 23:59 23:59 23:59 Intake Total 1845 / 1845 3893.33 / 4193.33 2478.33 / 2478.33 Balance 1845 / 1845 3893.33 / 4193.33 2478.33 / 2478.33 Medical Nutrition Assessment Dietitian: Malnutrition Criteria Met Start: 12/05/22 14:12 Freq: Status: Active Protocol: Document 12/05/22 14:12 AG (Rec: 12/05/22 14:12 AG [id number]) Nutrition Malnutrition Evidence of Malnutrition Exists Yes Malnutrition (moderate): Acute Illness/Injury Evidenced By Suboptimal Energy Intake ( Moderate),Weight Loss ( Moderate) Clinical Problem Acute Disease or Injury Related Malnutrition Etiology moderate, acute malnutrition related to inadequate energy intake d/t GI dysfunction Signs/Symptoms as evidenced by unintentional 8.8#/5% wt loss < 1 month; estimated PO intake meeting < 50% of estimated energy needs for more than 7 days over past 1 month Status Active Problem Recommendation Dietitian Recommendations/Changes recommend advance diet as tolerated to regular; will add ensure w/ medpass for additional calories/protein if consumed given evidence of acute malnutrition Lab / Micro Data Result Diagrams: 12/07/22 06:17 12/07/22 06:17 Labs: Laboratory Results - last 24 hr 12/05/22 06:27: Crossmatch See Detail 12/05/22 06:27: Crossmatch See Detail 12/06/22 16:48: POC Glucose 185 H 12/06/22 17:23: WBC 12.5 H, RBC 3.08 L, Hgb 8.6 L, Hct 27.1 L, MCV 88.0, MCH 27.9, MCHC 31.7 L, RDW Std Deviation 52.1 H, RDW Coeff of Emilio 16.4 H, Plt Count 228, MPV 9.3, Immature Gran % (Auto) 0.700, Neut % (Auto) 68.4, Lymph % (Auto) 22.5, [place] % (Auto) 5.6, Eos % (Auto) 2.0, Baso % (Auto) 0.8, Absolute Neuts (auto) 8.5 H, Absolute Lymphs (auto) 2.81, Nucleated RBC % 0.5 12/06/22 22:05: POC Glucose 133 H 12/07/22 05:03: POC Glucose 178 H 12/07/22 06:17: WBC 12.0 H, RBC 2.71 L, Hgb 7.3 L, Hct 23.6 L, MCV 87.1, MCH 26.9 L, MCHC 30.9 L, RDW Std Deviation 52.2 H, RDW Coeff of Emilio 16.9 H, Plt Cou nt 198, MPV 9.7 12/07/22 06:17: Sodium 147 H, Potassium 3.6, Chloride 115 H, Carbon Dioxide 25.0, Anion Gap 7, BUN 10, Creatinine 0.85, Estim Creat Clear Calc 59.26, Est GFR (MDRD) Af Amer 87, Est GFR (MDRD) Non-Af 72, BUN/Creatinine Ratio 11.8, Glucose 180 H, Calcium 8.5, Total Bilirubin 0.40, AST 11 L, ALT 12 L, Alkaline Phosphatase 46, Total Protein 4.8 L, Albumin 2.2 L, Globulin 2.6, Albumin/Globu vitaly Ratio 0.8 L 12/07/22 06:33: POC Glucose 171 H 12/07/22 11:19: POC Glucose 198 H Physical Exam Const alert and no apparent distress Constitutional Narrative: Pale HEENT head/scalp atraumatic and moist oral mucous membranes Resp normal respiratory effort, no retractions, no use of accessory muscles and clear to auscultation bilaterally Cardio regular rate, regular rhythm, S1 normal heart sound and S2 normal heart sound GI normal to inspection, nondistended, normoactive bowel sounds, soft to palpation, non-tender and non-distended Extremity normal to inspection Neuro oriented x3 Assessment & Plan Assessment/Plan (1) GI (gastrointestinal bleed): PLAN: Patient had EGD performed on the that showed a single bleeding colonic angiodysplastic lesion. It was injected and treated with heater probe and clipped. Unclear if this is a current source of the bleeding. Patient did have an ileocolonic anastomosis but that appeared to be intact and was seen by general surgery at that time CT angiogram of the abdomen pelvis showed no evidence of active bleeding Colonoscopy on the showed hemorrhagic appearance of the ileocolonic anastomosis. Treated with argon plasma coagulation and clips placed. (2) Acute blood loss anemia: PLAN: Secondary to GI bleed Goal hemoglobin is around 8 given her history of coronary artery disease. Patient received 2 units packed red blood cells on the . 12/06: Hemoglobin 6. Goal hemoglobin given patient's coronary disease is 8. We will transfuse 2 units of packed red blood cells. 12/07: Hemoglobin 7.3. Will transfuse 1 unit. Recheck hemoglobin. PLAN: Plan Chronic conditions * Coronary artery disease: Patient had stent placed in February. Hold clopidogrel for 48 hours. Continue to hold aspirin. Continue with carvedilol started on the . * Diabetes mellitus type 2: Hold glipizide. Sliding scale insulin * Rheumatoid arthritis: Continue with hydroxychloroquine * Hypothyroidism: Continue levothyroxine * Hypertension: Stable. Continue with lisinopril and amlodipine with hold parameters. VTE prophylaxis: Chemical prophylaxis contraindicated in light of the hemorrhage. SCDs. Disposition: To be determined. Patient's hemoglobin remained stable after initiation of clopidogrel. Case discussed with the patient's mother at bedside. Charges/Coding Visit Charges Inpatient E&M: 03482 Subs Hosp L2
[2022-12-07 16:06] LABS: Bedside Glucose 187 mg/dL (74-106)
[2022-12-07 16:54] LABS: Hematocrit 26.1 % (37-47); Hemoglobin 8.3 g/dL (12.0-15.0)
[2022-12-07] MEDS: Lisinopril 5 MG Tablet PO (21:33)
[2022-12-07 23:15] LABS: Bedside Glucose 138 mg/dL (74-106)
[2022-12-08 03:23] VITALS: BP 139/59; PULSE 66; RESP 18; TEMP 37; O2SAT 97
[2022-12-08] MEDS: Levothyroxine 88 MCG Tablet PO (05:01)
[2022-12-08 06:39] LABS: Absolute Lymphocyte Count 1.93 X10^3/uL (0.83-4.51); Absolute Neutrophil Count 8.3 X10^3/uL (2.0-7.7); Basophil# 0.09 X10^3/uL; Basophil% 0.8 % (0-1); Eosinophil# 0.27 X10^3/uL; Eosinophils% 2.4 % (0-5); Hematocrit 28.1 % (37-47); Hemoglobin 9.1 g/dL (12.0-15.0); Lymphocyte # 1.93 X10^3/ul (0.83-4.51); Mean Corp Hgb Conc 32.4 g/dL (32-36); Mean Corpuscular Hgb 28.3 pg (27.0-32.0); Mean Corpuscular Volume 87.5 fL (81-99); Mean Platelet Vol. 9.7 fl (6.2-12.0); Monocyte# 0.64 X10^3/uL; Monocyte% 5.6 % (0-10); NRBC Flagged by Analyzer 0.3 % (0-5); Neutrophil # 8.33 X10^3/uL (2.7-7.7); Neutrophil % 73.5 % (47-70); Platelet Count 199 K/mm3 (150-450); RBC Distribution Width CV 16.5 % (11.6-14.6); RBC Distribution Width SD 51.4 fl (35.1-43.9); Red Blood Count 3.21 M/mm3 (4.2-5.4); White Blood Count 11.3 K/mm3 (4.4-11.0)
[2022-12-08 07:00] LABS: Anion Gap 5 (5-15); BUN 11 mg/dL (7-18); BUN/Creat Ratio 11.4 RATIO (10-20); Calcium,Total 8.9 mg/dL (8.5-10.1); Chloride 112 mmol/L (98-107); Creatinine, Serum 0.97 mg/dL (0.55-1.02); EST Glomerular Filtration Rate 62 mL/min (>60); Est Glom Filt Rate - Afr Amer 75 mL/min (>60); Estimated Creatinine Clearance 51.93 ml/min; Glucose 156 mg/dL (74-106); Potassium 3.7 mmol/L (3.5-5.1); Sodium Level 145 mmol/L (136-145)
[2022-12-08 07:05] LABS: Bedside Glucose 140 mg/dL (74-106)
--- NOTE | 2022-12-08 07:56 | PN.HOSP_ITS ---
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 Does have some abdominal bloating but no pain. Objective Data Objective Data Vital Signs: Vital Signs Temp Pulse Resp BP Pulse Ox O2 Del Method 37.0 C 66 18 139/59 H 97 Room Air 12/08/22 03:23 12/08/22 03:23 12/08/22 03:23 12/08/22 03:23 12/08/22 03:23 12/08/22 03:27 Oxygen Delivery Method Room Air Weight: 80.6 kg Body Mass Index (BMI) 30.4 Intake & Output: Intake and Output for Last 24 Hours 12/06/22 12/07/22 12/08/22 23:59 23:59 23:59 Intake Total 3893.33 / 4193.33 3898.33 / 4098.33 200 / 200 Balance 3893.33 / 4193.33 3898.33 / 4098.33 200 / 200 Medical Nutrition Assessment Dietitian: Malnutrition Criteria Met Start: 12/05/22 14:12 Freq: Status: Active Protocol: Document 12/05/22 14:12 AG (Rec: 12/05/22 14:12 [id number]) Nutrition Malnutrition Evidence of Malnutrition Exists Yes Malnutrition (moderate): Acute Illness/Injury Evidenced By Suboptimal Energy Intake ( Moderate),Weight Loss ( Moderate) Clinical Problem Acute Disease or Injury Related Malnutrition Etiology moderate, acute malnutrition related to inadequate energy intake d/t GI dysfunction Signs/Symptoms as evidenced by unintentional 8.8#/5% wt loss < 1 month; estimated PO intake meeting < 50% of estimated energy needs for more than 7 days over past 1 month Status Active Problem Recommendation Dietitian Recommendations/Changes recommend advance diet as tolerated to regular; will add ensure w/ medpass for additional calories/protein if consumed given evidence of acute malnutrition Lab / Micro Data Result Diagrams: 12/08/22 05:40 12/08/22 05:40 Labs: Laboratory Results - last 24 hr 12/05/22 06:27: Crossmatch See Detail 12/05/22 06:27: Crossmatch See Detail 12/07/22 06:17: Sodium 147 H, Potassium 3.6, Chloride 115 H, Carbon Dioxide 25.0, Anion Gap 7, BUN 10, Creatinine 0.85, Estim Creat Clear Calc 59.26, Est GFR (MDRD) Af Amer 87, Est GFR (MDRD) Non-Af 72, BUN/Creatinine Ratio 11.8, Glucose 180 H, Calcium 8.5, Total Bilirubin 0.40, AST 11 L, ALT 12 L, Alkaline Phosphatase 46, Total Protein 4.8 L, Albumin 2.2 L, Globulin 2.6, Albumin/Globulin Ratio 0.8 L 12/07/22 11:19: POC Glucose 198 H 12/07/22 15:33: POC Glucose 187 H 12/07/22 16:40: Hgb 8.3 L, Hct 26.1 L 12/07/22 21:29: POC Glucose 138 H 12/08/22 05:40: WBC 11.3 H, RBC 3.21 L, Hgb 9.1 L, Hct 28.1 L, MCV 87.5, MCH 28.3, MCHC 32.4, RDW Std Deviation 51.4 H, RDW Coeff of Emilio 16.5 H, Plt Count 199, MPV 9.7, Immature Gran % (Auto) 0.700, Neut % (Auto) 73.5 H, Lymph % (Auto) 17.0 L, [place] % (Auto) 5.6, Eos % (Auto) 2.4, Baso % (Auto) 0.8, Absolute Neuts (auto) 8.3 H, Absolute Lymphs (auto) 1.93, Nucleated RBC % 0.3 12/08/22 05:40: Sodium 145, Potassium 3.7, Chloride 112 H, Carbon Dioxide 28.0, Anion Gap 5, BUN 11, Creatinine 0.97, Estim Creat Clear Calc 51.93, Est GFR (MDRD) Af Amer 75, Est GFR (MDRD) Non-Af 62, BUN/Creatinine Ratio 11.4, Glucose 156 H, Calcium 8.9 12/08/22 06:38: POC Glucose 140 H Physical Exam Const alert and no apparent distress Resp normal respiratory effort and no retractions Cardio regular rate, regular rhythm, S1 normal heart sound and S2 normal heart sound GI normal to inspection, nondistended, normoactive bowel sounds, soft to palpation and non-tender Extremity normal to inspection Assessment & Plan Assessment/Plan (1) GI (gastrointestinal bleed): PLAN: Patient had EGD performed on the that showed a single bleeding coloni c angiodysplastic lesion. It was injected and treated with heater probe and clipped. Unclear if this is a current source of the bleeding. Patient did have an ileocolonic anastomosis but that appeared to be intact and was seen by general surgery at that time CT angiogram of the abdomen pelvis showed no evidence of active bleeding Colonoscopy on the showed hemorrhagic appearance of the ileocolonic anastomosis. Treated with argon plasma coagulation and clips placed. (2) Acute blood loss anemia: PLAN: Secondary to GI bleed Goal hemoglobin is around 8 given her history of coronary artery disease. Patient received 2 units packed red blood cells on the . 12/06: Hemoglobin 6. Goal hemoglobin given patient's coronary disease is 8. We will transfuse 2 units of packed red blood cells. 12/07: Hemoglobin 7.3. Will transfuse 1 unit. Recheck hemoglobin. 12/08: Hg 9.1. Stable. Restart clopidogrel. PLAN: Plan Chronic conditions * Coronary artery disease: Patient had stent placed in February. Hold clopidogrel for 48 hours. Continue to hold aspirin. Continue with carvedilol started on the . * Diabetes mellitus type 2: Hold glipizide. Sliding scale insulin * Rheumatoid arthritis: Continue with hydroxychloroquine * Hypothyroidism: Continue levothyroxine * Hypertension: Stable. Continue with lisinopril and amlodipine with hold parameters. VTE prophylaxis: Chemical prophylaxis contraindicated in light of the h emorrhage. SCDs. Disposition: To be determined. If patient's hemoglobin stable on the , patient can be discharged to continue with clopidogrel. Charges/Coding Visit Charges Inpatient E&M: 35365 Subs Hosp L2
[2022-12-08 09:25] VITALS: BP 128/52; PULSE 72; RESP 18; TEMP 36.6; O2SAT 94
[2022-12-08] MEDS: Pantoprazole Sodium 40 MG Tablet PO (09:29)
[2022-12-08] MEDS: Hydroxychloroquine 200 MG Tablet PO ×2 (09:29→21:57)
[2022-12-08] MEDS: Venlafaxine XR 150 MG Capsule PO (09:30)
[2022-12-08] MEDS: Carvedilol 3.125 MG TABLET PO ×2 (09:30→21:56)
[2022-12-08] MEDS: Venlafaxine HCl 75 MG Tablet PO (09:30)
--- NOTE | 2022-12-08 12:05 | PN_ITS ---
Subjective Subjective Patient is doing very well and is not showing any signs of bleeding at this time. Objective Data Objective Data Vital Signs: Vital Signs Temp Pulse Resp BP Pulse Ox O2 Del Method 98 F 72 18 128/52 H 94 Room Air 12/08/22 09:25 12/08/22 09:25 12/08/22 09:25 12/08/22 09:25 12/08/22 09:25 12/08/22 09:25 Oxygen Delivery Method Room Air Weight: 177 lb 11.081 oz Body Mass Index (BMI) 30.4 Intake & Output: Intake and Output for Last 24 Hours 12/06/22 12/07/22 12/08/22 23:59 23:59 23:59 Intake Total 3893.33 / 4193.33 3898.33 / 4098.33 200 / 200 Balance 3893.33 / 4193.33 3898.33 / 4098.33 200 / 200 Medical Nutrition Assessment Dietitian: Malnutrition Criteria Met Start: 12/05/22 14:12 Freq: Status: Active Protocol: Document 12/05/22 14:12 AG (Rec: 12/05/22 14:12 AG [id number]) Nutrition Malnutrition Evidence of Malnutrition Exists Yes Malnutrition (moderate): Acute Illness/Injury Evidenced By Suboptimal Energy Intake ( Moderate),Weight Loss ( Moderate) Clinical Problem Acute Disease or Injury Related Malnutrition Etiology moderate, acute malnutrition related to inadequate energy intake d/t GI dysfunction Signs/Symptoms as evidenced by unintentional 8.8#/5% wt loss < 1 month; estimated PO intake meeting < 50% of estimated energy needs for more than 7 days over past 1 month Status Active Problem Recommendation Dietitian Recommendations/Changes recommend advance diet as tolerated to regular; will add ensure w/ medpass for additional calories/protein if consumed given evidence of acute malnutrition Lab / Micro Data Result Diagrams: 12/08/22 05:40 12/08/22 05:40 Labs: Laboratory Results - last 24 hr 12/05/22 06:27: Crossmatch See Detail 12/05/22 06:27: Crossmatch See Detail 12/07/22 15:33: POC Glucose 187 H 12/07/22 16:40: Hgb 8.3 L, Hct 26.1 L 12/07/22 21:29: POC Glucose 138 H 12/08/22 05:40: WBC 11.3 H, RBC 3.21 L, Hgb 9.1 L, Hct 28.1 L, MCV 87.5, MCH 28.3, MCHC 32.4, RDW Std Deviation 51.4 H, RDW Coeff of Emilio 16.5 H, Plt Count 199, MPV 9.7, Immature Gran % (Auto) 0.700, Neut % (Auto) 73.5 H, Lymph % (Auto) 17.0 L, [place] % (Auto) 5.6, Eos % (Auto) 2.4, Baso % (Auto) 0.8, Absolute Neuts (auto) 8.3 H, Absolute Lymphs (auto) 1.93, Nucleated RBC % 0.3 12/08/22 05:40: Sodium 145, Potassium 3.7, Chloride 112 H, Carbon Dioxide 28.0, Anion Gap 5, BUN 11, Creatinine 0.97, Estim Creat Clear Calc 51.93, Est GFR (MDRD) Af Amer 75, Est GFR (MDRD) Non-Af 62, BUN/Creatinine Ratio 11.4, Glucose 156 H, Calcium 8.9 12/08/22 06:38: POC Glucose 140 H Physical Exam Const alert and no apparent distress Constitutional Narrative: Pale HEENT head/scalp atraumatic and moist oral mucous membranes Resp normal respiratory effort, no retractions, no use of accessory muscles and clear to auscultation bilaterally Cardio regular rate, regular rhythm, S1 normal heart sound and S2 normal heart sound GI normal to inspection, nondistended, normoactive bowel sounds, soft to palpation, non-tender and non-distended Extremity normal to inspection Neuro oriented x3 Assessment & Plan Assessment/Plan (1) GI (gastrointestinal bleed): PLAN: Patient had EGD performed on the that showed a single bleeding colonic angiodysplastic lesion. It was injected and treated with heater probe and clipped. Unclear if this is a current source of the bleeding. Patient did have an ileocolonic anastomosis but that appeared to be intact and was seen by general surgery at that time CT angiogram of the abdomen pelvis showed no evidence of active bleeding Colonoscopy on the showed hemorrhagic appearance of the ileocolonic anastomosis. Treated with argon plasma coagulation and clips placed. (2) Acute blood loss anemia: PLAN: Secondary to GI bleed Goal hemoglobin is around 8 given her history of coronary artery disease. Patient received 2 units packed red blood cells on the . 12/06: Hemoglobin 6. Goal hemoglobin given patient's coronary disease is 8. We will transfuse 2 units of packed red blood cells. 12/07: Hemoglobin is slightly down today but I think that is mostly dilutional. She is not having any signs of bleeding. 12/08: Hemoglobin continues to trend up. She can likely be discharged off of antiplatelet therapy. It will have to be restarted as an outpatient. PLAN: Plan Chronic conditions * Coronary artery disease: Patient had stent placed in February. Hold clopidogrel for 48 hours. Continue to hold aspirin. Continue with carvedilol * Diabetes mellitus type 2: Hold glipizide. Sliding scale insulin * Rheumatoid arthritis: Continue with hydroxychloroquine * Hypothyroidism: Continue levothyroxine * Hypertension: Stable. Continue with lisinopril and amlodipine with hold parameters. VTE prophylaxis: Chemical prophylaxis contraindicated in light of the hemorrhage. SCDs. Disposition: To be determined. Monitor overnight. If no further bleeding and hemoglobin is stable then patient can be discharged in the coming days. Charges/Coding Visit Charges Inpatient E&M: 18309 [facility] L3
[2022-12-08] MEDS: Insulin Lispro 100 UNIT/ML INSULN.PEN SC ×2 (12:14→16:04)
[2022-12-08] MEDS: Clopidogrel Bisulfate 75 MG Tablet PO (12:14)
[2022-12-08] MEDS: amLODIPine 5 MG Tablet PO (12:15)
[2022-12-08 12:16] VITALS: BP 133/57
[2022-12-08 12:45] LABS: Bedside Glucose 168 mg/dL (74-106)
[2022-12-08 16:09] VITALS: BP 138/51; PULSE 73; RESP 16; TEMP 36.4; O2SAT 95
[2022-12-08 17:20] LABS: Bedside Glucose 209 mg/dL (74-106)
[2022-12-08 21:52] VITALS: BP 129/56; PULSE 72; RESP 18; TEMP 37.2; O2SAT 96
[2022-12-08] MEDS: Lisinopril 5 MG Tablet PO (21:57)
[2022-12-08 22:21] LABS: Bedside Glucose 151 mg/dL (74-106)
[2022-12-09 03:35] VITALS: BP 143/70; PULSE 71; RESP 18; TEMP 37; O2SAT 96
[2022-12-09] MEDS: Levothyroxine 88 MCG Tablet PO (05:34)
[2022-12-09 07:06] LABS: Bedside Glucose 144 mg/dL (74-106)
[2022-12-09] MEDS: Venlafaxine XR 150 MG Capsule PO (08:12)
[2022-12-09] MEDS: Pantoprazole Sodium 40 MG Tablet PO (08:12)
[2022-12-09] MEDS: Carvedilol 3.125 MG TABLET PO (08:12)
[2022-12-09] MEDS: Venlafaxine HCl 75 MG Tablet PO (08:12)
[2022-12-09] MEDS: Ensure Clear 120 ML Liquid PO ×2 (08:13→12:44)
[2022-12-09] MEDS: Clopidogrel Bisulfate 75 MG Tablet PO (08:13)
[2022-12-09] MEDS: Hydroxychloroquine 200 MG Tablet PO (08:13)
[2022-12-09 09:10] LABS: Absolute Lymphocyte Count 1.45 X10^3/uL (0.83-4.51); Basophil# 0.08 X10^3/uL; Basophil% 0.8 % (0-1); Eosinophils% 1.9 % (0-5); Hematocrit 30.2 % (37-47); Hemoglobin 9.3 g/dL (12.0-15.0); Lymphocyte # 1.45 X10^3/ul (0.83-4.51); Lymphocyte % 14.1 % (19-41); Mean Corp Hgb Conc 30.8 g/dL (32-36); Mean Corpuscular Hgb 27.7 pg (27.0-32.0); Mean Corpuscular Volume 89.9 fL (81-99); Mean Platelet Vol. 9.7 fl (6.2-12.0); Monocyte# 0.55 X10^3/uL; Monocyte% 5.3 % (0-10); NRBC Flagged by Analyzer 0 % (0-5); Neutrophil # 7.97 X10^3/uL (2.7-7.7); Neutrophil % 77.3 % (47-70); Platelet Count 206 K/mm3 (150-450); RBC Distribution Width SD 52.6 fl (35.1-43.9); Red Blood Count 3.36 M/mm3 (4.2-5.4); White Blood Count 10.3 K/mm3 (4.4-11.0)
[2022-12-09 09:24] LABS: Anion Gap 8 (5-15); BUN 12 mg/dL (7-18); BUN/Creat Ratio 11.7 RATIO (10-20); Calcium,Total 8.8 mg/dL (8.5-10.1); Chloride 109 mmol/L (98-107); Creatinine, Serum 1.03 mg/dL (0.55-1.02); EST Glomerular Filtration Rate 58 mL/min (>60); Est Glom Filt Rate - Afr Amer 70 mL/min (>60); Glucose 237 mg/dL (74-106); Potassium 3.7 mmol/L (3.5-5.1); Sodium Level 144 mmol/L (136-145)
[2022-12-09 09:35] VITALS: BP 141/63; PULSE 71; RESP 18; TEMP 36.5; O2SAT 96
--- NOTE | 2022-12-09 11:00 | PN_ITS ---
Subjective Subjective Patient has not had any more bleeding. She tolerating a diet. She states that she wants to go home. Objective Data Objective Data Vital Signs: Vital Signs Temp Pulse Resp BP Pulse Ox O2 Del Method 98.6 F 76 18 134/56 H 94 Room Air 12/09/22 15:35 12/09/22 15:35 12/09/22 15:35 12/09/22 15:35 12/09/22 15:35 12/09/22 15:35 Oxygen Delivery Method Room Air Weight: 177 lb 11.081 oz Body Mass Index (BMI) 30.4 Intake & Output: Intake and Output for Last 24 Hours 12/07/22 12/08/22 12/09/22 23:59 23:59 23:59 Intake Total 3898.33 / 4098.33 2119 620 / 620 Balance 3898.33 / 4098.33 2119 620 / 620 Lab / Micro Data Result Diagrams: 12/09/22 09:02 12/09/22 09:02 Labs: Laboratory Results - last 24 hr 12/08/22 21:56: POC Glucose 151 H 12/09/22 06:46: POC Glucose 144 H 12/09/22 09:02: WBC 10.3, RBC 3.36 L, Hgb 9.3 L, Hct 30.2 L, MCV 89.9, MCH 27.7, MCHC 30.8 L, RDW Std Deviation 52.6 H, RDW Coeff of Emilio 17.0 H, Plt Count 206, MPV 9.7, Immature Gran % (Auto) 0.600, Neut % (Auto) 77.3 H, Lymph % (Auto) 14.1 L, [place] % (Auto) 5.3, Eos % (Auto) 1.9, Baso % (Auto) 0.8, Absolute Neuts (auto) 8.0 H, Absolute Lymphs (auto) 1.45, Nucleated RBC % 0 12/09/22 09:02: Sodium 144, Potassium 3.7, Chloride 109 H, Carbon Dioxide 27.0, Anion Gap 8, BUN 12, Creatinine 1.03 H, Estim Creat Clear Calc 48.90, Est GFR (MDRD) Af Amer 70, Est GFR (MDRD) Non-Af 58 L, BUN/Creatinine Ratio 11.7, Glucose 237 H, Calcium 8.8 02/27/23 11:13: POC Glucose 208 H Radiography Diagnostic Testing: Radiology Impression Abdomen/Pelvis CTA 12/05/22 06:49 IMPRESSION: Status post right hemicolectomy. No evidence of active bleeding on this examination. Electronically Signed: Franco Sullivan MD at 8:34 EST , ADDENDUM: 12/09/22823 IMPRESSION: undefined Physical Exam Const alert and no apparent distress Constitutional Narrative: Pale HEENT head/scalp atraumatic and moist oral mucous membranes Resp normal respiratory effort, no retractions, no use of accessory muscles and clear to auscultation bilaterally Cardio regular rate, regular rhythm, S1 normal heart sound and S2 normal heart sound GI normal to inspection, nondistended, normoactive bowel sounds, soft to palpation, non-tender and non-distended Extremity normal to inspection Neuro oriented x3 Assessment & Plan Assessment/Plan (1) GI (gastrointestinal bleed): PLAN: Patient had EGD performed on the that showed a single bleeding colonic angiodysplastic lesion. It was injected and treated with heater probe and clipped. Unclear if this is a current source of the bleeding. Patient did have an ileocolonic anastomosis but that appeared to be intact and was seen by general surgery at that time CT angiogram of the abdomen pelvis showed no evidence of active bleeding Colonoscopy on the showed hemorrhagic appearance of the ileocolonic anastomosis. Treated with argon plasma coagulation and clips placed. (2) Acute blood loss anemia: PLAN: Secondary to GI bleed Goal hemoglobin is around 8 given her history of coronary artery disease. Patient received 2 units packed red blood cells on the . 12/06: Hemoglobin 6. Goal hemoglobin given patient's coronary disease is 8. We will transfuse 2 units of packed red blood cells. 12/07: Hemoglobin is slightly down today but I think that is mostly dilutional. She is not having any signs of bleeding. 12/08: Hemoglobin continues to trend up. She can likely be discharged off of antiplatelet therapy. It will have to be restarted as an outpatient. 12/09: Hemoglobin is slightly down. As per cardiology she can be off of Brilinta. Recommend recheck hemoglobin approximately 5 days. PLAN: Plan Chronic conditions * Coronary artery disease: Patient had stent placed in February. Hold clopidogrel for 48 hours. Continue to hold aspirin. Continue with carvedilol * Diabetes mellitus type 2: Hold glipizide. Sliding scale insulin * Rheumatoid arthritis: Continue with hydroxychloroquine * Hypothyroidism: Continue levothyroxine * Hypertension: Stable. Continue with lisinopril and amlodipine with hold parameters. VTE prophylaxis: Chemical prophylaxis contraindicated in light of the hemorrhage. SCDs. Disposition: To be determined. Monitor overnight. If no further bleeding and hemoglobin is stable then patient can be discharged in the coming days. Charges/Coding Visit Charges Inpatient E&M: [address] [facility]osp L3
[2022-12-09] MEDS: Insulin Lispro 100 UNIT/ML INSULN.PEN SC (11:14)
[2022-12-09] MEDS: amLODIPine 5 MG Tablet PO (11:14)
[2022-12-09 11:35] LABS: Bedside Glucose 208 mg/dL (74-106)
[2022-12-09 15:35] VITALS: BP 134/56; PULSE 76; RESP 18; TEMP 37; O2SAT 94
--- NOTE | 2022-12-09 15:42 | PCM.DC ---
Discharge Instructions Diet Discharge Diet: Carb Control Diet Activity Discharge Activity: Return to Normal Activity Follow Up Care Test Results: Test results from this visit will be discussed in further detail at your follow-up appointment, if applicable. Discharge Plan Admission Admit Date/Time: 12/05/22 11:10 Primary Reason for Your Visit: Rectal bleeding Attending Provider: Ledy Mcfarland Primary Care Provider: Kimi López Consulting Providers: Howard Bernard Instructions Patient Instructions: ED Lower GI Bleeding (Stable) Additional Instructions / Restrictions: DISCHARGE INSTRUCTIONS PLEASE READ *Please take this with you to your next doctors appointment* -You will need to follow-up with Dr. Suarez with GI in his office upon discharge. Please call his office to schedule your hospital follow-up appointment (ph. [phone]) -Please follow with Dr. Flood as previously scheduled -Would recommend lab work (CBC) to check your hemoglobin in 3 to 5 days through your primary care physician's office. Please call their office upon discharge to obtain order for lab work. -You will be continued on your Plavix but your aspirin will be held due to your bleeding, recommend following up with your hand wrapper operator upon discharge -Please continue your other home medications. You also indicated that you recently resumed your 5 mg of home prednisone under the guidance of your outpatient physician -Please call your primary care provider's office upon discharge to schedule a hospital follow up within 1 week. -For any concerning signs or symptoms please call 911 or proceed to the nearest emergency department Discharge Orders/Prescriptions Prescriptions: Continued amlodipine 5 mg tablet 5 mg PO LUNCH nystatin [Nystop] 100,000 unit/gram powder 100,000 gm topical PRN PRN (Reason: Skin Cleansing) Label Comments: APPLY TOPICALLY EVERY 8 HOURS [id number] mg capsule 1 cap PO Q4H PRN (Reason: Pain) valacyclovir [Valtrex] 1 gram tablet 1,000 mg PO DAILY PRN (Reason: outbreak) biotin 5,000 mcg tablet,disintegrating 15,000 mcg PO DAILY vitamin B complex [B Complex-Vitamin B12] Tablet 1 tab PO DAILY lisinopril 5 mg tablet 5 mg PO QHS venlafaxine 75 mg tablet 75 mg PO DAILY glipizide 10 mg tablet extended release 24hr 10 mg PO BID venlafaxine [Effexor XR] 150 mg capsule,extended release 24hr 150 mg PO DAILY clopidogrel 75 mg tablet 75 mg PO DAILY carvedilol 3.125 mg tablet 3.125 mg PO BID levothyroxine [Euthyrox] 88 mcg tablet 88 mcg PO DAILY rosuvastatin [Crestor] 10 mg Tablet 10 mg PO QHS ondansetron HCl 8 mg tablet 8 mg PO Q6H sennosides-docusate sodium [Stool Softener-Stimulant Laxat] 8.6-50 mg Tablet 2 tab PO BID PRN PRN (Reason: Constipation) Qty: 0 0RF pantoprazole 40 mg Tablet,Delayed Release (Dr/Ec) 40 mg PO DAILY 30 Days Qty: 30 1RF fluticasone propionate 50 mcg/actuation [place],Suspension 1 spray INTRANASAL BID PRN (Reason: Sinus Symptoms) Rx Instructions: administer into each nostril hydroxychloroquine 200 mg tablet 200 mg PO BID Qty: 60 0RF Discontinued aspirin [Adult Aspirin Regimen] 81 mg tablet,delayed release (DR/EC) 81 mg PO DAILY Hold Instructions: Hold for 5 days. azithromycin 250 mg tablet See Rx Instructions PO .COMPLEX Qty: 6 0RF Rx Instructions: For 250 mg dose pack: take 500 mg today (day 1), then 250 mg for 4 days (days 2-5) PO Referrals / Follow Up: Kimi López MD [Primary Care Provider] - Within 1 Week Disposition Disposition (needs filled in before D/C Order can be placed): Home, Self Care
--- NOTE | 2022-12-09 15:54 | DS.PCM_ITS ---
Providers Date of Admission: 12/05/22 Date of Discharge: 12/09/22 Primary Care Physician: Dr. Kimi López MD Consultations 12/05/22 11:35 Consult: Gastroenterology Routine Consulting Provider: [facility] Reason for Consult: GI bleed EMERGENT Consult: No MD Notified: Yes Date Notified: 12/05/22 Time Notified: 11:18 Method of Notification: Verbal Reason For Visit: ACUTE BLOOD LOSS ANEMIA AND GI BLEED Diagnosis Discharge Diagnosis (1) GI (gastrointestinal bleed): Status: Acute Code(s): K92.2 - Gastrointestinal hemorrhage, unspecified (2) Acute blood loss anemia: Status: Acute Code(s): D62 - Acute posthemorrhagic anemia Plan (1) GI (gastrointestinal bleed): (2) Acute blood loss anemia: Chronic conditions * Coronary artery disease: * Diabetes mellitus type 2: * Rheumatoid arthritis * Hypothyroidism * Hypertension Medications at Discharge Home Medications amlodipine 5 mg tablet 5 mg PO LUNCH BP 04/02/22 nystatin 100,000 unit/gram topical powder (Nystop) 100,000 gm topical PRN PRN Skin Cleansing 04/02/22 biotin 5,000 mcg disintegrating tablet 15,000 mcg PO DAILY SUPPLEMENT 08/26/22 butalbital 50 mg-acetaminophen 325 mg-caffeine 40 mg-codeine 30 mg cap 1 cap PO Q4H PRN Pain 08/26/22 valacyclovir 1 gram tablet (Valtrex) 1,000 mg PO DAILY PRN outbreak 08/26/22 vitamin B complex (B Complex-Vitamin B12 tablet) 1 tab PO DAILY SUPPLEMENT 08/26/22 lisinopril 5 mg tablet 5 mg PO QHS BP 10/31/22 carvedilol 3.125 mg tablet 3.125 mg PO BID BP/HEART 11/05/22 clopidogrel 75 mg tablet 75 mg PO DAILY BLOOD THINNER 11/05/22 glipizide 10 mg tablet, extended release 24 hr 10 mg PO BID DIABETIC 11/05/22 levothyroxine 88 mcg tablet (Euthyrox) 88 mcg PO DAILY THYROID 11/05/22 rosuvastatin 10 mg tablet (Crestor) 10 mg PO QHS CHOLESTEROL 11/05/22 venlafaxine 150 mg capsule,extended release 24 hr (Effexor XR) 150 mg PO DAILY DEPRESSION 11/05/22 venlafaxine 75 mg tablet 75 mg PO DAILY DEPRESSION 11/05/22 hydroxychloroquine 200 mg tablet 200 mg PO BID RA #60 tabs 11/06/22 ondansetron HCl 8 mg tablet 8 mg PO Q6H 11/15/22 pantoprazole 40 mg tablet,delayed release 40 mg PO DAILY 30 days #30 tabs 11/27/22 sennosides 8.6 mg-docusate sodium 50 mg tablet (Stool Softener-Stimulant Laxative) 2 tab PO BID PRN PRN Constipation #0 tabs 11/27/22 fluticasone propionate 50 mcg/actuation nasal spray,suspension 1 spray intranasal BID PRN Sinus Symptoms 12/05/22 Hospital Course Procedures - (Colonoscopy) Summary of Care Provided Minutes Spent on Discharge: 36 Hospital Course: 62-year-old female with a history of diabetes, recent right-sided hemicolectomy secondary to hepatic flexure colon cancer with [id number] primary anastomosis, after which she developed GI bleed which required treatment and blood and iron t ransfusions, coronary artery disease with 3 stents, GERD, rheumatoid arthritis, hypertension presented 12/05/2022 with acute blood loss anemia secondary to GI bleed. She had an EGD on the which showed a single bleeding colonic angiodysplastic lesion which was treated with a heater probe and clipped and had a GI bleed postsurgery and had 2 colonoscopies. Did have recent surgery with ileocolonic anastomosis and is following with general surgery for that. She does have history of 3 stents and is on aspirin and Plavix and these were held. CTA abdomen pelvis on this presentation showed no active bleeding, she was placed on clear liquid diet and Dr. Suarez was consulted. She had colonoscopy 12/06 which demonstrated hemorrhagic appearance at the anastomosis site and was treated with argon plasma coagulation and clips were placed. On 12/05 she received 2 units of packed red blood cells and on 12/06 hemoglobin was 6 and received an additional 2, 12/07 had additional unit. On 12/08 her hemoglobin was stable and her clopidogrel was restarted. She had no further significant drop in hemoglobin or overt bleeding. Discussed with GI and patient. She denied any complaints on day of discharge, discharge instructions as followed: -You will need to follow-up with Dr. Suarez with GI in his office upon discharge.? Please call his office to schedule your hospital follow-up appointment (ph. [phone]) -Please follow with Dr. Flood as previously scheduled -Would recommend lab work (CBC) to check your hemoglobin in 3 to 5 days through your primary care physician's office.? Please call their office upon discharge to obtain order for lab work. -You will be continued on your Plavix but your aspirin will be held due to your bleeding, recommend following up with your weight count operator upon discharge -Please continue your other home medications.? You also indicated that you recently resumed your 5 mg of home prednisone under the guidance of your outpatient physician -Please call your primary care provider's office upon discharge to schedule a hospital follow up within 1 week. -For any concerning signs or symptoms please call 911 or proceed to the nearest emergency department Physical Exam Narrative General: Alert, oriented, no apparent distress HEENT: Atraumatic, normocephalic Eyes: Anicteric, normal conjunctiva, extraocular movements grossly intact Neck: Supple Respiratory: Clear to auscultation bilaterally, normal respiratory effort Cardiovascular: Regular rate and rhythm GI: Soft, nontender, nondistended Extremities: No edema Musculoskeletal: Moving all extremities Neuro: No overt focal neurological deficits Skin: No rashes appreciated Psych: Cooperative Medical Records Data Medical Nutrition Assessment Dietitian: Malnutrition Criteria Met Start: 12/05/22 14:12 Freq: Status: Active Protocol: Document 12/05/22 14:12 (Rec: 12/05/22 14:12 [id number]) Nutrition Malnutrition Evidence of Malnutrition Exists Yes Malnutrition (moderate): Acute Illness/Injury Evidenced By Suboptimal Energy Intake ( Moderate),Weight Loss ( Moderate) Clinical Problem Acute Disease or Injury Related Malnutrition Etiology moderate, acute malnutrition related to inadequate energy intake d/t GI dysfunction Signs/Symptoms as evidenced by unintentional 8.8#/5% wt loss < 1 month; estimated PO intake meeting < 50% of estimated energy needs for more than 7 days over past 1 month Status Active Problem Recommendation Dietitian Recommendations/Changes recommend advance diet as tolerated to regular; will add ensure w/ medpass for additional calories/protein if consumed given evidence of acute malnutrition Weight / BMI Weight Weight: 80.6 kg Body Mass Index (BMI) 30.4 ABG / Lab / Microbiology Data Result Diagrams: 12/09/22 09:02 12/09/22 09:02 Laboratory: Laboratory Results - last 24 hr 12/08/22 16:03: POC Glucose 209 H 12/08/22 21:56: POC Glucose 151 H 12/09/22 06:46: POC Glucose 144 H 12/09/22 09:02: WBC 10.3, RBC 3.36 L, Hgb 9.3 L, Hct 30.2 L, MCV 89.9, MCH 27.7, MCHC 30.8 L, RDW Std Deviation 52.6 H, RDW Coeff of Emilio 17.0 H, Plt Count 206, MPV 9.7, Immature Gran % (Auto) 0.600, Neut % (Auto) 77.3 H, Lymph % (Auto) 14.1 L, [place] % (Auto) 5.3, Eos % (Auto) 1.9, Baso % (Auto) 0.8, Absolute Neuts (auto) 8.0 H, Absolute Lymphs (auto) 1.45, Nucleated RBC % 0 12/09/22 09:02: Sodium 144, Potassium 3.7, Chloride 109 H, Carbon Dioxide 27.0, Anion Gap 8, BUN 12, Creatinine 1.03 H, Estim Creat Clear Calc 48.90, Est GFR (MDRD) Af Amer 70, Est GFR (MDRD) Non-Af 58 L, BUN/Creatinine Ratio 11.7, Glucose 237 H, Calcium 8.8 12/09/22 11:13: POC Glucose 208 H Radiography Diagnostic Testing: Radiology Impression Abdomen/Pelvis CTA 12/05/22 06:49 IMPRESSION: Status post right hemicolectomy. No evidence of active bleeding on this examination. Electronically Signed: Franco Sullivan MD at 8:34 EST Reading Location ID and State: [facility] / [place] , Service support , ADDENDUM: 12/09/22 0824 IMPRESSION: undefined D/C Instructions Discharge Diet: Carb Control Diet Meaningful Use Info Meaningful Use Diagnoses (Choose all that apply): None applicable Discharge Plan Admission Admit Date/Time: 12/05/22 11:10 Primary Reason for Your Visit: Rectal bleeding Attending Provider: Ledy Mcfarland Primary Care Provider: Kimi López Consulting Providers: Howard Bernard Instructions Patient Instructions: ED Lower GI Bleeding (Stable) Additional Instructions / Restrictions: DISCHARGE INSTRUCTIONS PLEASE READ *Please take this with you to your next doctors appointment* -You will need to follow-up with Dr. Suarez with GI in his office upon discharge. Please call his office to schedule your hospital follow-up appointment (ph. [phone]) -Please follow with Dr. Flood as previously scheduled -Would recommend lab work (CBC) to check your hemoglobin in 3 to 5 days through your primary care physician's office. Please call their office upon discharge to obtain order for lab work. -You will be continued on your Plavix but your aspirin will be held due to your bleeding, recommend following up with your weight count operator upon discharge -Please continue your other home medications. You also indicated that you recently resumed your 5 mg of home prednisone under the guidance of your outpatient physician -Please call your primary care provider's office upon discharge to schedule a hospital follow up within 1 week. -For any concerning signs or symptoms please call 911 or proceed to the nearest emergency department Discharge Orders/Prescriptions Prescriptions: Continued amlodipine 5 mg tablet 5 mg PO LUNCH nystatin [Nystop] 100,000 unit/gram powder 100,000 gm topical PRN PRN (Reason: Skin Cleansing) Label Comments: APPLY TOPICALLY EVERY 8 HOURS [id number] mg capsule 1 cap PO Q4H PRN (Reason: Pain) valacyclovir [Valtrex] 1 gram tablet 1,000 mg PO DAILY PRN (Reason: outbreak) biotin 5,000 mcg tablet,disintegrating 15,000 mcg PO DAILY vitamin B complex [B Complex-Vitamin B12] Tablet 1 tab PO DAILY lisinopril 5 mg tablet 5 mg PO QHS venlafaxine 75 mg tablet 75 mg PO DAILY glipizide 10 mg tablet extended release 24hr 10 mg PO BID venlafaxine [Effexor XR] 150 mg capsule,extended release 24hr 150 mg PO DAILY clopidogrel 75 mg tablet 75 mg PO DAILY carvedilol 3.125 mg tablet 3.125 mg PO BID levothyroxine [Euthyrox] 88 mcg tablet 88 mcg PO DAILY rosuvastatin [Crestor] 10 mg Tablet 10 mg PO QHS ondansetron HCl 8 mg tablet 8 mg PO Q6H sennosides-docusate sodium [Stool Softener-Stimulant Laxat] 8.6-50 mg Tablet 2 tab PO BID PRN PRN (Reason: Constipation) Qty: 0 0RF pantoprazole 40 mg Tablet,Delayed Release (Dr/Ec) 40 mg PO DAILY 30 Days Qty: 30 1RF fluticasone propionate 50 mcg/actuation [place],Suspension 1 spray INTRANASAL BID PRN (Reason: Sinus Symptoms) Rx Instructions: administer into each nostril hydroxychloroquine 200 mg tablet 200 mg PO BID Qty: 60 0RF Discontinued aspirin [Adult Aspirin Regimen] 81 mg tablet,delayed release (DR/EC) 81 mg PO DAILY Hold Instructions: Hold for 5 days. azithromycin 250 mg tablet See Rx Instructions PO .COMPLEX Qty: 6 0RF Rx Instructions: For 250 mg dose pack: take 500 mg today (day 1), then 250 mg for 4 days (days 2-5) PO Referrals / Follow Up: Kimi López MD [Primary Care Provider] - Within 1 Week Disposition Disposition (needs filled in before D/C Order can be placed): Home, Self Care Charges/Coding Visit Charges Inpatient E&M: 83335 Disch Hosp >30min
== END 2022-12-09 16:46 | disposition home or self-care (01) | DRG 810 ==
LOC: ED 09:07 → PCU 12:00
PROVIDERS: Anesthesiology; Internal Medicine Gastroenterology; Emergency Provider Emergency Medicine; PCP Internal Medicine; Visit Provider Internal Medicine
PROC: 0DJD8ZZ Inspection of Lower Intestinal Tract, Via Natural or Artificial Opening Endoscopic (ICD-10-PCS; CPT 45378; principal; 2022-12-06 06:25)
DX: K91.840 Postprocedural hemorrhage of a digestive system organ or structure following a digestive system procedure (principal); E44.0 Moderate protein-calorie malnutrition; E11.22 Type 2 diabetes mellitus with diabetic chronic kidney disease; E11.40 Type 2 diabetes mellitus with diabetic neuropathy, unspecified; I95.9 Hypotension, unspecified; M06.9 Rheumatoid arthritis, unspecified; D62 Acute posthemorrhagic anemia; E03.9 Hypothyroidism, unspecified; I12.9 Hypertensive chronic kidney disease with stage 1 through stage 4 chronic kidney disease, or unspecified chronic kidney disease; I25.10 Atherosclerotic heart disease of native coronary artery without angina pectoris; M79.7 Fibromyalgia; N18.9 Chronic kidney disease, unspecified; E78.5 Hyperlipidemia, unspecified; Z98.0 Intestinal bypass and anastomosis status; Z68.30 Body mass index [BMI] 30.0-30.9, adult; Z79.02 Long term (current) use of antithrombotics/antiplatelets; Z79.84 Long term (current) use of oral hypoglycemic drugs; Z79.82 Long term (current) use of aspirin; Z79.890 Hormone replacement therapy; Z79.899 Other long term (current) drug therapy; Z87.891 Personal history of nicotine dependence; Z90.49 Acquired absence of other specified parts of digestive tract; Z95.5 Presence of coronary angioplasty implant and graft
CPT/HCPCS: 36415; 74174; 80048; 80053; 82962; 83036; 85014; 85018; 85025; 85027; 85610; 85730; 86850; 86900; 86901; 86920; 88305; 93005; 99285; J7030; J7040; P9016; P9040; Q9967; A4216; J2405; J3490

== ENCOUNTER → 2022-12-11 | Outpatient (CLI) | payer MEDICAID, SELFPAY ==
[2022-12-11 14:48] LABS: Anion Gap 8 (5-15); BUN 15 mg/dL (7-18); BUN/Creat Ratio 14.3 RATIO (10-20); Calcium,Total 8.6 mg/dL (8.5-10.1); Chloride 109 mmol/L (98-107); Creatinine, Serum 1.05 mg/dL (0.55-1.02); EST Glomerular Filtration Rate 56 mL/min (>60); Est Glom Filt Rate - Afr Amer 68 mL/min (>60); Glucose 209 mg/dL (74-106); Potassium 3.4 mmol/L (3.5-5.1); Sodium Level 144 mmol/L (136-145)
[2022-12-11 16:12] LABS: Hematocrit 32.1 % (37-47); Hemoglobin 9.9 g/dL (12.0-15.0)
== END | disposition home or self-care (01) ==
LOC: PAVLAB 13:59
PROVIDERS: PCP Internal Medicine; Referring Provider Physician Assistant; Visit Provider Physician Assistant
DX: D62 Acute posthemorrhagic anemia (principal); K92.2 Gastrointestinal hemorrhage, unspecified
CPT/HCPCS: 36415; 80048; 85014; 85018

== ENCOUNTER → 2022-12-16 | Outpatient (CLI) | payer MEDICAID, SELFPAY ==
[2022-12-16 15:09] LABS: Absolute Lymphocyte Count 1.75 X10^3/uL (0.83-4.51); Absolute Neutrophil Count 6.5 X10^3/uL (2.0-7.7); Basophil# 0.11 X10^3/uL; Basophil% 1.2 % (0-1); Eosinophil# 0.39 X10^3/uL; Eosinophils% 4.1 % (0-5); Hematocrit 35.3 % (37-47); Hemoglobin 10.8 g/dL (12.0-15.0); Lymphocyte # 1.75 X10^3/ul (0.83-4.51); Lymphocyte % 18.6 % (19-41); Mean Corp Hgb Conc 30.6 g/dL (32-36); Mean Corpuscular Hgb 27.5 pg (27.0-32.0); Mean Corpuscular Volume 89.8 fL (81-99); Mean Platelet Vol. 9.7 fl (6.2-12.0); Monocyte# 0.63 X10^3/uL; Monocyte% 6.7 % (0-10); NRBC Flagged by Analyzer 0.4 % (0-5); Neutrophil # 6.49 X10^3/uL (2.7-7.7); Platelet Count 344 K/mm3 (150-450); RBC Distribution Width CV 14.7 % (11.6-14.6); RBC Distribution Width SD 48.5 fl (35.1-43.9); Red Blood Count 3.93 M/mm3 (4.2-5.4); White Blood Count 9.4 K/mm3 (4.4-11.0)
[2022-12-16 15:19] LABS: Potassium 4.2 mmol/L (3.5-5.1)
== END | disposition home or self-care (01) ==
PROVIDERS: Physician Assistant; PCP Internal Medicine; Referring Provider Internal Medicine Gastroenterology; Visit Provider Internal Medicine Gastroenterology
DX: K92.2 Gastrointestinal hemorrhage, unspecified (principal); D62 Acute posthemorrhagic anemia; E87.6 Hypokalemia
CPT/HCPCS: 36415; 84132; 85025

== ENCOUNTER → 2023-01-06 | Outpatient (CLI) | payer MEDICAID, SELFPAY ==
[2023-01-06 12:46] LABS: Absolute Lymphocyte Count 1.13 X10^3/uL (0.83-4.51); Absolute Neutrophil Count 8.4 X10^3/uL (2.0-7.7); Basophil# 0.09 X10^3/uL; Basophil% 0.9 % (0-1); Eosinophil# 0.19 X10^3/uL; Eosinophils% 1.8 % (0-5); Hematocrit 36.4 % (37-47); Hemoglobin 11.3 g/dL (12.0-15.0); Lymphocyte # 1.13 X10^3/ul (0.83-4.51); Lymphocyte % 10.9 % (19-41); Mean Corpuscular Hgb 27.3 pg (27.0-32.0); Mean Corpuscular Volume 87.9 fL (81-99); Mean Platelet Vol. 10.2 fl (6.2-12.0); Monocyte# 0.47 X10^3/uL; Monocyte% 4.6 % (0-10); NRBC Flagged by Analyzer 0 % (0-5); Neutrophil # 8.39 X10^3/uL (2.7-7.7); Neutrophil % 81.3 % (47-70); Platelet Count 260 K/mm3 (150-450); RBC Distribution Width CV 14.3 % (11.6-14.6); RBC Distribution Width SD 45.5 fl (35.1-43.9); Red Blood Count 4.14 M/mm3 (4.2-5.4); White Blood Count 10.3 K/mm3 (4.4-11.0)
== END | disposition home or self-care (01) ==
LOC: MTLAB 10:12
PROVIDERS: PCP Internal Medicine; Referring Provider Internal Medicine; Visit Provider Internal Medicine
DX: D64.9 Anemia, unspecified (principal)
CPT/HCPCS: 36415; 85025

== ENCOUNTER → 2023-02-05 | Outpatient (CLI) | payer MEDICAID, SELFPAY ==
[2023-02-05 16:09] LABS: Absolute Lymphocyte Count 2.18 X10^3/uL (0.83-4.51); Absolute Neutrophil Count 5.2 X10^3/uL (2.0-7.7); Basophil# 0.08 X10^3/uL; Basophil% 0.9 % (0-1); Eosinophil# 0.22 X10^3/uL; Eosinophils% 2.6 % (0-5); Hematocrit 38.8 % (37-47); Hemoglobin 11.9 g/dL (12.0-15.0); Lymphocyte # 2.18 X10^3/ul (0.83-4.51); Lymphocyte % 25.7 % (19-41); Mean Corp Hgb Conc 30.7 g/dL (32-36); Mean Corpuscular Hgb 26.7 pg (27.0-32.0); Mean Platelet Vol. 10.1 fl (6.2-12.0); Monocyte# 0.72 X10^3/uL; Monocyte% 8.5 % (0-10); NRBC Flagged by Analyzer 0 % (0-5); Neutrophil # 5.24 X10^3/uL (2.7-7.7); Neutrophil % 61.8 % (47-70); Platelet Count 248 K/mm3 (150-450); RBC Distribution Width CV 14.1 % (11.6-14.6); RBC Distribution Width SD 45.1 fl (35.1-43.9); Red Blood Count 4.46 M/mm3 (4.2-5.4); White Blood Count 8.5 K/mm3 (4.4-11.0)
[2023-02-05 17:01] LABS: ALB/GLOB Ratio 0.9 RATIO (0.9-2.4); AST(SGOT) 15 U/L (15-37); Alanine Aminotransfer ALT/SGPT 27 U/L (13-56); Albumin, Serum 3.4 g/dL (3.2-5.0); Alkaline Phosphatase 103 U/L (45-117); Anion Gap 4 (5-15); BUN 31 mg/dL (7-18); BUN/Creat Ratio 29.8 RATIO (10-20); Calcium,Total 9.2 mg/dL (8.5-10.1); Chloride 107 mmol/L (98-107); Creatinine, Serum 1.04 mg/dL (0.55-1.02); EST Glomerular Filtration Rate 57 mL/min (>60); Est Glom Filt Rate - Afr Amer 69 mL/min (>60); Globulin 3.7 g/dL (2.2-4.2); Glucose 145 mg/dL (74-106); Iron 41 ug/dL (50-170); Iron Binding Capacity,Total 376 ug/dL (250-450); PERCENT IRON SATURATION 10.9 % (15.0-55.0); Potassium 4.2 mmol/L (3.5-5.1); Protein, Total 7.1 g/dL (6.4-8.2); Sodium Level 138 mmol/L (136-145); Total Bilirubin < 0.10 mg/dL (0.20-1.00)
== END | disposition home or self-care (01) ==
LOC: LAB 15:04
PROVIDERS: PCP Internal Medicine; Referring Provider Internal Medicine; Visit Provider Internal Medicine
DX: R51.9 Headache, unspecified (principal); M06.9 Rheumatoid arthritis, unspecified; E11.22 Type 2 diabetes mellitus with diabetic chronic kidney disease; N18.31 Chronic kidney disease, stage 3a; D62 Acute posthemorrhagic anemia; E87.6 Hypokalemia; I25.10 Atherosclerotic heart disease of native coronary artery without angina pectoris
CPT/HCPCS: 36415; 80053; 83540; 83550; 85025

== ENCOUNTER → 2023-02-21 | Outpatient (CLI) | payer MEDICAID, SELFPAY ==
--- NOTE | 2023-02-21 16:33 | MRI_ITS ---
STUDY: MRI BRAIN WITHOUT CONTRAST REASON FOR EXAM: Female, 62 years old. New onset LEVY''s, severe, recurrent TECHNIQUE: Standardized multiplanar fat and water weighted pulse sequences were obtained. COMPARISON: None. FINDINGS: Normal size of the ventricles and extra-axial spaces for the patient''s age. Minor periventricular white matter ischemic disease most likely chronic small vessel ischemic change in patient of this age without mass effect or restricted diffusion. Incidental finding of cavum cavum septum pellucidum which is normal developmental variant Normal bilateral basal ganglia. Normal thalami. There is no extra-axial fluid accumulation. Normal flow voids within the major intracranial circulation suggesting patency by spin echo criteria. Normal sella turcica, pituitary gland, infundibular stalk, optic chiasm and hypothalamus. Normal tectal plate and pineal gland. Normal midbrain, g[place] and medulla. Normal cerebellum. Normal basal cisterns. Normal bilateral temporal bones. Normal bilateral internal auditory canals. No demonstrated orbital abnormality, within the constraints of a routine brain study. Normal visualized paranasal sinuses. Normal calvarium and skull base. Normal visualized soft tissue structures. Normal visualized upper cervical spine. MRI/Brain without Contrast IMPRESSION: Minor nonspecific periventricular white matter disease without evidence for acute infarct. No evidence for obstructive hydrocephalus or mass Electronically Signed: Dax Ramires MD at 16:56 EDT ,
== END | disposition home or self-care (01) ==
LOC: MRI 16:14
PROVIDERS: PCP Internal Medicine; Referring Provider Internal Medicine; Visit Provider Internal Medicine
DX: R51.9 Headache, unspecified (principal)
CPT/HCPCS: 70551

== ENCOUNTER 2023-04-12 09:37 | Emergency (ER) | payer MEDICAID, SELFPAY ==
[2023-04-12 09:38] VITALS: BP 156/64; PULSE 82; RESP 18; TEMP 36.6; O2SAT 99
--- NOTE | 2023-04-12 09:56 | EDS_ITS ---
HPI History of Present Illness Chief Complaint: Lower Extremity Injury Detail of Chief Complaint: Left leg pain Informant: patient Narrative Narrative: Patient presents emergency department complaint of pain in her left leg that started yesterday. Patient states that she had been planting some roses on uneven ground yesterday. She denies any falls or injuries. She denies recent travel or recent surgery. She denies chest pain or shortness of breath. Pain worse with standing and walking and certain movements. PFSH [facility] Medical History Acid reflux Acute blood loss anemia Anemia Anxiety Breast cyst Cancer Cardiology follow-up encounter Carpal tunnel syndrome Diabetes Dietary restriction Erythromelalgia Fibromyalgia Foot fracture, left Foot fracture, right Former smoker Gastric reflux Gastroenteritis Hepatitis History of chronic kidney disease History of diabetes mellitus History of echocardiogram History of heart attack History of renal disease History of steroid therapy Hypertension Infectious mononucleosis Injury of head and neck Leg cramps Low iron Measles Migraines Neuropathy Osteopenia Post-menopausal Rheumatoid arthritis Seasonal allergies Shingles Shortness of breath on exertion Small fiber neuropathy Thyroid disease UTI (urinary tract infection) Home Medications nystatin 100,000 unit/gram topical powder (Nystop) 100,000 gm topical PRN PRN Skin Cleansing 04/02/22 [History Last Taken Unknown] biotin 5,000 mcg disintegrating tablet 15,000 mcg PO DAILY SUPPLEMENT 08/26/22 [History Last Taken 12/04/22] vitamin B complex (B Complex-Vitamin B12 tablet) 1 tab PO DAILY SUPPLEMENT 08/26/22 [History Last Taken 12/04/22] lisinopril 5 mg tablet 5 mg PO QHS BP 10/31/22 [History Last Taken 12/04/22] clopidogrel 75 mg tablet 75 mg PO DAILY BLOOD THINNER 11/05/22 [History Last Taken 12/04/22] glipizide 10 mg tablet, extended release 24 hr 10 mg PO BID DIABETIC 11/05/22 [History Last Taken 12/04/22] levothyroxine 88 mcg tablet (Euthyrox) 88 mcg PO DAILY THYROID 11/05/22 [History Last Taken 12/05/22] venlafaxine 150 mg capsule,extended release 24 hr (Effexor XR) 150 mg PO DAILY DEPRESSION 11/05/22 [History Last Taken 12/04/22] venlafaxine 75 mg tablet 75 mg PO DAILY DEPRESSION 11/05/22 [History Last Taken 12/04/22] sennosides 8.6 mg-docusate sodium 50 mg tablet (Stool Softener-Stimulant Laxative) 2 tab PO BID PRN PRN Constipation #0 tabs 11/27/22 [Rx Last Taken 12/04/22] fluticasone propionate 50 mcg/actuation nasal spray,suspension 1 spray intranasal BID PRN Sinus Symptoms 12/05/22 [History Last Taken 12/04/22] prednisone 5 mg tablet 2.5 mg (1/2 x 5 mg) PO DAILY #90 tabs 12/19/22 [Rx Last Taken Unknown] butalbital 50 mg-acetaminophen 325 mg-caffeine 40 mg-codeine 30 mg cap 1 cap PO Q4H PRN Pain #30 caps 01/22/23 [Rx Last Taken Unknown] ondansetron HCl 8 mg tablet 8 mg PO Q6H PRN 02/05/23 [History Last Taken Unknown] valacyclovir 1 gram tablet (Valtrex) 1,000 mg PO DAILY PRN outbreak #20 tabs 04/03/23 [Rx Last Taken Unknown] oxycodone-acetaminophen 5 mg-325 mg tablet (Percocet) 1 tab PO Q8H PRN pain 3 days #10 tabs 04/12/23 [Rx Last Taken Unknown] famotidine 40 mg tablet 40 mg PO DAILY #90 tabs 04/16/23 [Rx Last Taken Unknown] empagliflozin 25 mg tablet 25 mg PO DAILY #30 tabs 05/20/23 [Rx Last Taken Unknown] pen needle, diabetic 31 gauge x 3/16 (Sure-Fine Pen [place]) #100 ea 05/20/23 [Rx Last Taken Unknown] hydroxychloroquine 200 mg tablet 200 mg PO BID RA #60 tabs 05/27/23 [Rx Last Taken Unknown] carvedilol 3.125 mg tablet 6.25 mg PO BID BP/HEART 06/11/23 [History Last Taken Unknown] rosuvastatin 10 mg tablet (Crestor) 20 mg PO QHS CHOLESTEROL 06/11/23 [History Last Taken Unknown] amlodipine 10 mg tablet 10 mg PO BID BP #90 tabs 07/09/23 [Rx Last Taken Unknown] Allergy/AdvReac Type Severity Reaction Status Date / Time iron Allergy Severe Other Verified 06/11/23 14:05 Iodinated Contrast Media Allergy Intermediate Hives Verified 06/11/23 14:05 [IVP dye] Seasonal Allergies: Uncoded Allergy Mild Hives Verified 06/11/23 14:05 levofloxacin [From Levaquin] Allergy PT UNSURE Verified 06/11/23 14:05 OF REACTION liraglutide [From Victoza] Allergy dehydration Verified 06/11/23 14:05 - ended up in hospital Sulfa (Sulfonamide Allergy pt states Verified 06/11/23 14:05 Antibiotics) has [sulfa drugs] tolerated some methylprednisolone AdvReac Intermediate HALLUCINATI Verified 06/11/23 14:05 [From Solu-Medrol] ONS acetaminophen [From Percocet] AdvReac Itching Verified 06/11/23 14:05 adhesive AdvReac Rash Verified 06/11/23 14:05 hydrochlorothiazide AdvReac pt can tke Verified 06/11/23 14:05 tablet, but not capsule hydrocodone AdvReac Itching Verified 06/11/23 14:05 oxycodone [From Percocet] AdvReac Itching Verified 06/11/23 14:05 Family History Grandfather Cancer Heart disease Father Cancer Heart disease Diabetes Uncle Cancer Aunt Cancer Brother Heart disease Surgical History H/O heart artery stent History of lumbar laminectomy Hx of appendectomy Hx of cholecystectomy Hx of colonoscopy Hx of fusion of cervical spine Hx of release of tendon Hx of tonsillectomy Social History Smoking Status: Former smoker alcohol intake: never substance use type: does not use caffeine: Yes Type: carbonated beverages and tea what type of physical activity do you participate in: none seatbelt use: always do you feel safe at home: Yes ROS ROS ED Review of Systems ROS Unobtainable: other Constitutional Constitutional ED: Reports lethargy; Denies chills, fever(s), sweats or weight loss Eyes Eyes: Denies blurry vision, change in vision or diplopia ENT ENT ED: Denies rhinorrhea or sore throat Cardiovascular Cardiovascular: Denies chest pain, orthopnea or racing heartbeat Respiratory/Chest Respiratory/Chest: Denies cough, dyspnea, dyspnea on exertion, orthopnea or sputum Gastrointestinal Gastrointestinal: Denies abdominal pain, diarrhea, nausea or vomiting Genitourinary Genitourinary ED: Denies dysuria, hematuria or urinary frequency Musculoskeletal Musculoskeletal: Reports other Details: Left leg pain ; Denies arthralgias, back pain, myalgias or neck pain Integumentary Denies abscess, Abrasions or rash Neurologic Neurologic: Denies headache(s) or weakness Psychiatric Psychiatric: Denies anxiety, depression or suicidal thoughts Endocrine Endocrinology: Denies polydipsia, polyphagia or polyuria Hematologic/Lymphatic Hematologic/Lymphatic: Denies easy bleeding, easy bruising or lymphadenopathy Allergic/Immunologic Allergic/Immunologic ED: Denies mouth swelling, tongue swelling or urticaria EXAM Physical Exam Const Vital Signs: 04/12/23 09:38 Temperature 97.8 F Temperature Source Temporal Pulse Rate 82 Respiratory Rate 18 Blood Pressure 156/64 H Blood Pressure Mean 94 Pulse Ox 99 Oxygen Delivery Method Room Air Positive well nourished and well developed General Appearance ED: well developed and NAD HEENT Reports TM's clear and moist mucous membranes normocephalic and atraumatic; Negative for trauma or tenderness Tympanic Membrane ED: Yes TM's clear Eyes PERRL and EOMs intact bilaterally General Eye ED: Negative for pale conjunctiva or scleral icterus Neck no lymphadenopathy, supple and no JVD General: Negative for tenderness Chest Wall inspection of chest normal and palpation of chest normal Chest: Negative for tenderness Resp normal respiratory effort and clear to auscultation bilaterally Effort and Inspection: Negative for respiratory distress or pain with movement Auscultation: Negative for rhonchi, wheezes or diminished lung sounds Cardio regular rate, regular rhythm, S1 normal heart sound, S2 normal heart sound and no murmurs Peripheral Pulses: pulses 2+ throughout GI normal to inspection, nondistended, normoactive bowel sounds, soft to palpation, non-tender, non-distended and no masses Back/Spine no CVA tenderness and no thoracic nor lumbar tenderness Extremity Extremity Narrative: Left leg-patient has tenderness palpation over the proximal fibula head that seems to reproduce her pain. No tenderness about the knee. No tenderness in the calf. No ropes or cords palpated. She is neurovascular intact distally. Ligamentously stable at the knee. No effusion noted. No erythema or warmth noted. General Extremety ED: Negative for edema General Extremity: Negative for edema Neuro oriented x3, CN's II-XII intact bilaterally, no sensory deficits noted and gait normal Sensorium / Orientation: awake, alert, oriented to person, oriented to place and oriented to time Motor Exam: strength 5/5 throughout and strength abnormal Psych mental status grossly normal Skin no rashes or lesions noted and no wounds MDM MDM MDM Narrative Medical decision making narrative: Patient presents with atraumatic left leg pain. She has had no fall or trauma. We discussed obtaining an x-ray but my suspicion for fracture is low and she is comfortable not obtaining 1. Also discussed possibility for DVT although this I suspect is again low probability as her pain is reproducible with tenderness over the proximal fibular head. Suspect possibility of a tendinitis more likely. Patient will be given an Neo wrap. She has a walker at home for comfort. Patient also will be given a prescription for Percocet for pain. Patient advised to follow-up with her primary care physician within next 5 to 7 days. Discharge Plan Triage Chief Complaint: Lower Extremity Injury ED Provider: Angela Sotelo Dx/Rx/DC Orders Clinical Impression: Acute leg pain Instructions: ED Pain, Acute, Uncertain Cause, ED Tendonitis Prescriptions: New oxycodone-acetaminophen [Percocet] 5-325 mg tablet 1 tab PO Q8H PRN (Reason: pain) 3 Days Qty: 10 0RF No Action nystatin [Nystop] 100,000 unit/gram powder 100,000 gm topical PRN PRN (Reason: Skin Cleansing) Patient Comments: APPLY TOPICALLY EVERY 8 HOURS biotin 5,000 mcg tablet,disintegrating 15,000 mcg PO DAILY vitamin B complex [B Complex-Vitamin B12] Tablet 1 tab PO DAILY prednisone 5 mg tablet 2.5 mg PO DAILY Qty: 90 0RF lisinopril 5 mg tablet 5 mg PO QHS venlafaxine 75 mg tablet 75 mg PO DAILY glipizide 10 mg tablet extended release 24hr 10 mg PO BID venlafaxine [Effexor XR] 150 mg capsule,extended release 24hr 150 mg PO DAILY clopidogrel 75 mg tablet 75 mg PO DAILY levothyroxine [Euthyrox] 88 mcg tablet 88 mcg PO DAILY carvedilol 3.125 mg tablet 6.25 mg PO BID rosuvastatin [Crestor] 10 mg tablet 20 mg PO QHS ondansetron HCl 8 mg tablet 8 mg PO Q6H PRN sennosides-docusate sodium [Stool Softener-Stimulant Laxat] 8.6-50 mg Tablet 2 tab PO BID PRN PRN (Reason: Constipation) Qty: 0 0RF fluticasone propionate 50 mcg/actuation [place],Suspension 1 spray INTRANASAL BID PRN (Reason: Sinus Symptoms) Rx Instructions: administer into each nostril [id number] mg capsule 1 cap PO Q4H PRN (Reason: Pain) Qty: 30 1RF valacyclovir [Valtrex] 1 gram tablet 1,000 mg PO DAILY PRN (Reason: outbreak) Qty: 20 1RF Rx Instructions: Take 1 tab daily x5 days as needed for outbreak. famotidine 40 mg tablet 40 mg PO DAILY Qty: 90 3RF (DME) pen needle, diabetic [Sure-Fine Pen [place]] 31 gauge x 3/16 needle See Rx Instructions .Route Qty: 100 1RF Rx Instructions: As directed empagliflozin 25 mg tablet 25 mg PO DAILY Qty: 30 1RF hydroxychloroquine 200 mg tablet 200 mg PO BID Qty: 60 1RF amlodipine 10 mg tablet 10 mg PO BID Qty: 90 1RF Primary Care Provider: Kimi López Referrals: Kimi López MD [Primary Care Provider] - 5-7 Days Disposition Disposition: Home, Self Care Discharge Date/Time: 04/12/23 10:21
== END 2023-04-12 10:21 | disposition home or self-care (01) ==
LOC: ED 10:17
PROVIDERS: Emergency Provider Emergency Medicine; PCP Internal Medicine; Visit Provider Emergency Medicine
DX: M79.605 Pain in left leg (principal); E11.22 Type 2 diabetes mellitus with diabetic chronic kidney disease; E11.40 Type 2 diabetes mellitus with diabetic neuropathy, unspecified; N18.9 Chronic kidney disease, unspecified; Z87.891 Personal history of nicotine dependence; I12.9 Hypertensive chronic kidney disease with stage 1 through stage 4 chronic kidney disease, or unspecified chronic kidney disease; X58.XXXA Exposure to other specified factors, initial encounter; Y93.89 Activity, other specified; Z79.899 Other long term (current) drug therapy; Z79.02 Long term (current) use of antithrombotics/antiplatelets; F41.9 Anxiety disorder, unspecified; Z95.5 Presence of coronary angioplasty implant and graft; Z90.49 Acquired absence of other specified parts of digestive tract
CPT/HCPCS: 99282

== ENCOUNTER 2023-04-28 15:26 | Emergency (ER) | payer MEDICAID, SELFPAY ==
[2023-04-28 15:28] VITALS: BP 145/80; PULSE 93; RESP 16; TEMP 36.5; O2SAT 97; BMI 27.6
--- NOTE | 2023-04-28 15:46 | EX.ED.DYSGE1 ---
HPI History of Present Illness Chief Complaint: General Illness Detail of Chief Complaint: Painful sore perineal region Informant: patient Onset/Context/Timing Onset: Days (First noted April 24) Context: Sudden Onset Timing: Continuous Quality: Initially blisters patient's underwear that she now has ulcers Current Severity: Mild Maximum Severity: Severe Worsened by: Touch or urine Relieved by: Nothing Associated Symptoms Associated Symptoms: Elevated blood sugars since her medication was discontinued Narrative Narrative: Patient is a 62-year-old woman with history of recurrent oral herpetic lesions. She does take valacyclovir with onset. She has not had an outbreak recently. She presents because she had a lesion which initially was thought to be a yeast infection by her doctor. 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 She denies fever or chills. She denies vaginal discharge. She denies dysuria, hematuria, frequency or urgency. Patient states when she first noted the rash which is painful there were blisters. She also reports drainage from the area. Prior similar symptoms: No Recent Illness/Hospitalization: No PFSH PFSH Medical History Acid reflux Acute blood loss anemia Anemia Anxiety Breast cyst Cancer Cardiology follow-up encounter Carpal tunnel syndrome Diabetes Dietary restriction Erythromelalgia Fibromyalgia Foot fracture, left Foot fracture, right Former smoker Gastric reflux Gastroenteritis Hepatitis History of chronic kidney disease History of diabetes mellitus History of echocardiogram History of heart attack History of renal disease History of steroid therapy Hypertension Infectious mononucleosis Injury of head and neck Leg cramps Low iron Measles Migraines Neuropathy Osteopenia Post-menopausal Rheumatoid arthritis Seasonal allergies Shingles Shortness of breath on exertion Small fiber neuropathy Thyroid disease UTI (urinary tract infection) Home Medications amlodipine 5 mg tablet 5 mg PO LUNCH BP 04/02/22 [History Last Taken 12/04/22] nystatin 100,000 unit/gram topical powder (Nystop) 100,000 gm topical PRN PRN Skin Cleansing 04/02/22 [History Last Taken Unknown] biotin 5,000 mcg disintegrating tablet 15,000 mcg PO DAILY SUPPLEMENT 08/26/22 [History Last Taken 12/04/22] vitamin B complex (B Complex-Vitamin B12 tablet) 1 tab PO DAILY SUPPLEMENT 08/26/22 [History Last Taken 12/04/22] lisinopril 5 mg tablet 5 mg PO QHS BP 10/31/22 [History Last Taken 12/04/22] carvedilol 3.125 mg tablet 3.125 mg PO BID BP/HEART 11/05/22 [History Last Taken 12/04/22] clopidogrel 75 mg tablet 75 mg PO DAILY BLOOD THINNER 11/05/22 [History Last Taken 12/04/22] glipizide 10 mg tablet, extended release 24 hr 10 mg PO BID DIABETIC 11/05/22 [History Last Taken 12/04/22] levothyroxine 88 mcg tablet (Euthyrox) 88 mcg PO DAILY THYROID 11/05/22 [History Last Taken 12/05/22] rosuvastatin 10 mg tablet (Crestor) 10 mg PO QHS CHOLESTEROL 11/05/22 [History Last Taken 12/04/22] venlafaxine 150 mg capsule,extended release 24 hr (Effexor XR) 150 mg PO DAILY DEPRESSION 11/05/22 [History Last Taken 12/04/22] venlafaxine 75 mg tablet 75 mg PO DAILY DEPRESSION 11/05/22 [History Last Taken 12/04/22] sennosides 8.6 mg-docusate sodium 50 mg tablet (Stool Softener-Stimulant Laxative) 2 tab PO BID PRN PRN Constipation #0 tabs 11/27/22 [Rx Last Taken 12/04/22] fluticasone propionate 50 mcg/actuation nasal spray,suspension 1 spray intranasal BID PRN Sinus Symptoms 12/05/22 [History Last Taken 12/04/22] prednisone 5 mg tablet 2.5 mg (1/2 x 5 mg) PO DAILY #90 tabs 12/19/22 [Rx Last Taken Unknown] butalbital 50 mg-acetaminophen 325 mg-caffeine 40 mg-codeine 30 mg cap 1 cap PO Q4H PRN Pain #30 caps 01/22/23 [Rx Last Taken Unknown] ondansetron HCl 8 mg tablet 8 mg PO Q6H PRN 02/05/23 [History Last Taken Unknown] hydroxychloroquine 200 mg tablet 200 mg PO BID RA #60 tabs 03/26/23 [Rx Last Taken Unknown] cefuroxime axetil 500 mg tablet 500 mg PO BID #20 tabs 04/03/23 [Rx Last Taken Unknown] valacyclovir 1 gram tablet (Valtrex) 1,000 mg PO DAILY PRN outbreak #20 tabs 04/03/23 [Rx Last Taken Unknown] empagliflozin 10 mg tablet 10 mg PO DAILY #30 tabs 04/07/23 [Rx Last Taken Unknown] oxycodone-acetaminophen 5 mg-325 mg tablet (Percocet) 1 tab PO Q8H PRN pain 3 days #10 tabs 04/12/23 [Rx Last Taken Unknown] famotidine 40 mg tablet 40 mg PO DAILY #90 tabs 04/16/23 [Rx Last Taken Unknown] Allergy/AdvReac Type Severity Reaction Status Date / Time iron Allergy Severe Other Verified 04/28/23 15:27 Iodinated Contrast Media Allergy Intermediate Hives Verified 04/28/23 15:27 [IVP dye] Seasonal Allergies: Uncoded Allergy Mild Hives Verified 04/28/23 15:27 levofloxacin [From Levaquin] Allergy PT UNSURE Verified 04/28/23 15:27 OF REACTION liraglutide [From Victoza] Allergy dehydration Verified 04/28/23 15:27 - ended up in hospital Sulfa (Sulfonamide Allergy pt states Verified 04/28/23 15:27 Antibiotics) has [sulfa drugs] tolerated some methylprednisolone AdvReac Intermediate HALLUCINATI Verified 04/28/23 15:27 [From Solu-Medrol] ONS acetaminophen [From Percocet] AdvReac Itching Verified 04/28/23 15:27 adhesive AdvReac Rash Verified 04/28/23 15:27 hydrochlorothiazide AdvReac pt can tke Verified 04/28/23 15:27 tablet, but not capsule hydrocodone AdvReac Itching Verified 04/28/23 15:27 oxycodone [From Percocet] AdvReac Itching Verified 04/28/23 15:27 Family History Grandfather Cancer Heart disease Father Cancer Heart disease Diabetes Uncle Cancer Aunt Cancer Brother Heart disease Surgical History H/O heart artery stent History of lumbar laminectomy Hx of appendectomy Hx of cholecystectomy Hx of colonoscopy Hx of fusion of cervical spine Hx of release of tendon Hx of tonsillectomy Social History (Reviewed 04/28/23 @ 14:44 by DANITA Kendall Smoking Status: Former smoker alcohol intake: never substance use type: does not use caffeine: Yes Type: carbonated beverages and tea what type of physical activity do you participate in: none seatbelt use: always do you feel safe at home: Yes ROS ROS ED Constitutional Constitutional ED: Denies chills, fever(s), subjective, sweats or weight loss Eyes Eyes: Denies blurry vision, change in vision or diplopia ENT ENT ED: Denies ear pain, rhinorrhea or sore throat Cardiovascular Cardiovascular: Denies chest pain or palpitations Genitourinary Genitourinary ED: Denies dysuria, hematuria or urinary frequency Musculoskeletal Musculoskeletal: Denies arthralgias, back pain, myalgias or neck pain Integumentary Reports rash; Denies abscess or Abrasions Neurologic Neurologic: Denies paresthesias or weakness Hematologic/Lymphatic Hematologic/Lymphatic: Reports systems reviewed and no addt'l complaints, except as documented EXAM Physical Exam Const Vital Signs: 04/28/23 15:28 Temperature 97.7 F L Temperature Source Temporal Pulse Rate 93 Respiratory Rate 16 Blood Pressure 145/80 H Blood Pressure Mean 101 Pulse Ox 97 Oxygen Delivery Method Room Air Positive well nourished and well developed; Negative for obese, cachectic, contractures or unkempt General Appearance ED: well developed and NAD; Negative for unkempt, cachectic, contractures, cyanotic or diaphoretic Nutritional Appearance: Negative for cachectic or obese HEENT Reports moist mucous membranes HEENT Narrative: Head is atraumatic and normocephalic. Ears normal. Nares patent. Mucosa moist. No herpetic lesions, cold sores noted. Eyes PERRL and EOMs intact bilaterally General Eye ED: Negative for pale conjunctiva or scleral icterus Resp normal respiratory effort Cardio regular rate and regular rhythm GI normal to inspection, nondistended, normoactive bowel sounds, non-tender, non-distended and no masses; Negative for hepatosplenomegaly Narrative: There is ulcerative painful lesions noted S4/S5 dermatome on the right only. There is a cluster of ulcers noted. This probably represents an HSV infection. This also could represent herpes varicella-zoster. Back/Spine no CVA tenderness Extremity normal to inspection Neuro oriented x3, CN's II-XII intact bilaterally and no sensory deficits noted Sensorium / Orientation: alert Psych mental status grossly normal Appearance: Negative for unkempt Skin Skin Narrative: Ulcerative lesions right inferior buttocks area S4/S5 dermatome. There are no anal lesions noted. There is no vaginal lesions noted. There is no vaginal discharge noted. MDM MDM MDM Narrative Medical decision making narrative: Patient history and description of what the rash initially look like and what it looks like now and the fact that it is very painful represent a herpetic infection. This may represent HSV versus shingles. Since patient is day 4 of onset there is no treatment. She states her blood sugar was elevated because she was not on her medication. I informed her that I would contact Dr. Croft. She informed me that his nurse practitioner told her to restart her medicine. She was informed that I did contact the pharmacist and the medicine has no history of causing herpetic infections or any case reports. History & Record Review Discussion w/independent historian: Patient and Family Management Discussion w/another healthcare provider: Pharmacist Discharge Plan Triage Chief Complaint: General Illness ED Provider: Enrique Mendenhall Dx/Rx/DC Orders Clinical Impression: History of diabetes mellitus, type II, Herpetic lesion, History of fibromyalgia Instructions: Herpes: Caring for Sores Prescriptions: No Action amlodipine 5 mg tablet 5 mg PO LUNCH nystatin [Nystop] 100,000 unit/gram powder 100,000 gm topical PRN PRN (Reason: Skin Cleansing) Patient Comments: APPLY TOPICALLY EVERY 8 HOURS biotin 5,000 mcg tablet,disintegrating 15,000 mcg PO DAILY vitamin B complex [B Complex-Vitamin B12] Tablet 1 tab PO DAILY prednisone 5 mg tablet 2.5 mg PO DAILY Qty: 90 0RF lisinopril 5 mg tablet 5 mg PO QHS venlafaxine 75 mg tablet 75 mg PO DAILY glipizide 10 mg tablet extended release 24hr 10 mg PO BID venlafaxine [Effexor XR] 150 mg capsule,extended release 24hr 150 mg PO DAILY clopidogrel 75 mg tablet 75 mg PO DAILY carvedilol 3.125 mg tablet 3.125 mg PO BID levothyroxine [Euthyrox] 88 mcg tablet 88 mcg PO DAILY rosuvastatin [Crestor] 10 mg Tablet 10 mg PO QHS ondansetron HCl 8 mg tablet 8 mg PO Q6H PRN sennosides-docusate sodium [Stool Softener-Stimulant Laxat] 8.6-50 mg Tablet 2 tab PO BID PRN PRN (Reason: Constipation) Qty: 0 0RF fluticasone propionate 50 mcg/actuation [place],Suspension 1 spray INTRANASAL BID PRN (Reason: Sinus Symptoms) Rx Instructions: administer into each nostril oxycodone-acetaminophen [Percocet] 5-325 mg tablet 1 tab PO Q8H PRN (Reason: pain) 3 Days Qty: 10 0RF [id number] [id number] mg capsule 1 cap PO Q4H PRN (Reason: Pain) Qty: 30 1RF hydroxychloroquine 200 mg tablet 200 mg PO BID Qty: 60 1RF valacyclovir [Valtrex] 1 gram tablet 1,000 mg PO DAILY PRN (Reason: outbreak) Qty: 20 1RF Rx Instructions: Take 1 tab daily x5 days as needed for outbreak. cefuroxime axetil 500 mg tablet 500 mg PO BID Qty: 20 0RF empagliflozin 10 mg tablet 10 mg PO DAILY Qty: 30 1RF famotidine 40 mg tablet 40 mg PO DAILY Qty: 90 3RF Primary Care Provider: Kimi López Referrals: Kimi López MD [Primary Care Provider] - 1 Week if not improving Disposition Disposition: Home, Self Care
--- NOTE | 2023-04-28 15:50 | ED.RN ---
In room with EMD during genital exam. Cultures collected and sent to lab.
[2023-04-28 16:11] LABS: Bedside Glucose 325 mg/dL (74-106)
[2023-05-01 12:09] LABS: HSV Culture Without Typing Positive (.)
== END 2023-04-28 16:24 | disposition home or self-care (01) ==
PROVIDERS: Emergency Provider Emergency Medicine; PCP Internal Medicine; Visit Provider Emergency Medicine
DX: K76.89 Other specified diseases of liver (principal); E11.40 Type 2 diabetes mellitus with diabetic neuropathy, unspecified; E11.22 Type 2 diabetes mellitus with diabetic chronic kidney disease; I12.9 Hypertensive chronic kidney disease with stage 1 through stage 4 chronic kidney disease, or unspecified chronic kidney disease; Z87.891 Personal history of nicotine dependence; N18.9 Chronic kidney disease, unspecified; Z79.899 Other long term (current) drug therapy; Z79.02 Long term (current) use of antithrombotics/antiplatelets; F41.9 Anxiety disorder, unspecified; Z95.5 Presence of coronary angioplasty implant and graft; Z90.49 Acquired absence of other specified parts of digestive tract; M79.7 Fibromyalgia
CPT/HCPCS: 82962; 87255; 99282

== ENCOUNTER → 2023-05-27 | Outpatient (CLI) | payer MEDICAID, SELFPAY ==
[2023-05-27 10:07] LABS: Absolute Lymphocyte Count 2.21 X10^3/uL (0.83-4.51); Absolute Neutrophil Count 5.4 X10^3/uL (2.0-7.7); Basophil# 0.11 X10^3/uL; Basophil% 1.3 % (0-1); Eosinophil# 0.25 X10^3/uL; Eosinophils% 2.9 % (0-5); Hemoglobin 13.3 g/dL (12.0-15.0); Lymphocyte # 2.21 X10^3/ul (0.83-4.51); Lymphocyte % 25.6 % (19-41); Mean Corp Hgb Conc 30.9 g/dL (32-36); Mean Corpuscular Hgb 27.7 pg (27.0-32.0); Mean Corpuscular Volume 89.4 fL (81-99); Mean Platelet Vol. 9.7 fl (6.2-12.0); Monocyte# 0.65 X10^3/uL; Monocyte% 7.5 % (0-10); NRBC Flagged by Analyzer 0 % (0-5); Neutrophil # 5.37 X10^3/uL (2.7-7.7); Neutrophil % 62.1 % (47-70); Platelet Count 275 K/mm3 (150-450); RBC Distribution Width CV 13.1 % (11.6-14.6); RBC Distribution Width SD 42.5 fl (35.1-43.9); Red Blood Count 4.81 M/mm3 (4.2-5.4); White Blood Count 8.6 K/mm3 (4.4-11.0)
[2023-05-27 10:44] LABS: ALB/GLOB Ratio 0.8 RATIO (0.9-2.4); AST(SGOT) 9 U/L (15-37); Alanine Aminotransfer ALT/SGPT 19 U/L (13-56); Albumin, Serum 3.3 g/dL (3.2-5.0); Alkaline Phosphatase 97 U/L (45-117); Anion Gap 5 (5-15); BUN 25 mg/dL (7-18); BUN/Creat Ratio 18.7 RATIO (10-20); Calcium,Total 9.2 mg/dL (8.5-10.1); Chloride 108 mmol/L (98-107); Creatinine, Serum 1.34 mg/dL (0.55-1.02); EST Glomerular Filtration Rate 43 mL/min (>60); Est Glom Filt Rate - Afr Amer 51 mL/min (>60); Globulin 4.3 g/dL (2.2-4.2); Glucose 175 mg/dL (74-106); Iron 58 ug/dL (50-170); Iron Binding Capacity,Total 371 ug/dL (250-450); PERCENT IRON SATURATION 15.6 % (15.0-55.0); Potassium 3.9 mmol/L (3.5-5.1); Protein, Total 7.6 g/dL (6.4-8.2); Sodium Level 141 mmol/L (136-145)
== END | disposition home or self-care (01) ==
LOC: MTLAB 08:04
PROVIDERS: PCP Internal Medicine; Referring Provider Internal Medicine; Visit Provider Internal Medicine
DX: I10 Essential (primary) hypertension (principal); M06.9 Rheumatoid arthritis, unspecified; E11.9 Type 2 diabetes mellitus without complications; I25.10 Atherosclerotic heart disease of native coronary artery without angina pectoris; D64.9 Anemia, unspecified; E87.6 Hypokalemia; E55.9 Vitamin D deficiency, unspecified
CPT/HCPCS: 36415; 80053; 83036; 83540; 83550; 85025

== ENCOUNTER → 2023-07-14 | Outpatient (CLI) | payer MEDICAID, SELFPAY ==
[2023-07-14 10:08] LABS: Absolute Lymphocyte Count 2.27 X10^3/uL (0.83-4.51); Absolute Neutrophil Count 10.6 X10^3/uL (2.0-7.7); Basophil# 0.14 X10^3/uL; Eosinophil# 0.27 X10^3/uL; Eosinophils% 1.9 % (0-5); Hematocrit 43.3 % (37-47); Hemoglobin 13.4 g/dL (12.0-15.0); Lymphocyte # 2.27 X10^3/ul (0.83-4.51); Lymphocyte % 15.7 % (19-41); Mean Corp Hgb Conc 30.9 g/dL (32-36); Mean Corpuscular Hgb 27.2 pg (27.0-32.0); Mean Platelet Vol. 10.1 fl (6.2-12.0); Monocyte# 1.04 X10^3/uL; Monocyte% 7.2 % (0-10); NRBC Flagged by Analyzer 0 % (0-5); Neutrophil # 10.63 X10^3/uL (2.7-7.7); Neutrophil % 73.6 % (47-70); Platelet Count 289 K/mm3 (150-450); RBC Distribution Width CV 12.7 % (11.6-14.6); RBC Distribution Width SD 41.1 fl (35.1-43.9); Red Blood Count 4.92 M/mm3 (4.2-5.4); White Blood Count 14.4 K/mm3 (4.4-11.0)
[2023-07-14 10:13] LABS: ALB/GLOB Ratio 0.8 RATIO (0.9-2.4); AST(SGOT) 17 U/L (15-37); Alanine Aminotransfer ALT/SGPT 24 U/L (13-56); Albumin, Serum 3.4 g/dL (3.2-5.0); Alkaline Phosphatase 99 U/L (45-117); Anion Gap 9 (5-15); BUN 22 mg/dL (7-18); BUN/Creat Ratio 15.1 RATIO (10-20); Calcium,Total 9.2 mg/dL (8.5-10.1); Chloride 108 mmol/L (98-107); Creatinine, Serum 1.46 mg/dL (0.55-1.02); EST Glomerular Filtration Rate 38 mL/min (>60); Est Glom Filt Rate - Afr Amer 47 mL/min (>60); Globulin 4.2 g/dL (2.2-4.2); Glucose 241 mg/dL (74-106); Magnesium 2.1 mg/dL (1.6-2.6); Protein, Total 7.6 g/dL (6.4-8.2); Sodium Level 140 mmol/L (136-145)
[2023-07-14 10:32] LABS: Hemoglobin A1c 7.4 % (3.8-5.6)
== END | disposition home or self-care (01) ==
PROVIDERS: PCP Internal Medicine; Referring Provider Internal Medicine; Visit Provider Internal Medicine
DX: E55.9 Vitamin D deficiency, unspecified (principal); E11.9 Type 2 diabetes mellitus without complications; I25.10 Atherosclerotic heart disease of native coronary artery without angina pectoris; I10 Essential (primary) hypertension
CPT/HCPCS: 36415; 80053; 83036; 83735; 85025

== ENCOUNTER → 2023-08-07 | Outpatient (CLI) | payer MEDICAID, SELFPAY ==
[2023-08-12 09:08] LABS: HPV APTIMA, High Risk Negative (Negative)
== END | disposition home or self-care (01) ==
LOC: LABSPEC 12:46
PROVIDERS: PCP Internal Medicine; Referring Provider Nurse Practitioner Women's Health; Visit Provider Nurse Practitioner Women's Health
DX: Z12.4 Encounter for screening for malignant neoplasm of cervix (principal); N89.8 Other specified noninflammatory disorders of vagina
CPT/HCPCS: 87070; 87205; 87624; 88175; G0145

== ENCOUNTER → 2023-08-13 | Outpatient (CLI) | payer MEDICAID, SELFPAY ==
[2023-08-13 09:38] LABS: ALB/GLOB Ratio 0.8 RATIO (0.9-2.4); AST(SGOT) 12 U/L (15-37); Alanine Aminotransfer ALT/SGPT 23 U/L (13-56); Albumin, Serum 3.3 g/dL (3.2-5.0); Alkaline Phosphatase 94 U/L (45-117); Anion Gap 6 (5-15); BUN 27 mg/dL (7-18); BUN/Creat Ratio 15.9 RATIO (10-20); Chloride 108 mmol/L (98-107); Cholesterol 124 mg/dL (200); EST Glomerular Filtration Rate 32 mL/min (>60); Est Glom Filt Rate - Afr Amer 39 mL/min (>60); Glucose 165 mg/dL (74-106); High Density Lipoprotein 62 mg/dL; Potassium 4.2 mmol/L (3.5-5.1); Protein, Total 7.3 g/dL (6.4-8.2); Sodium Level 140 mmol/L (136-145); Triglycerides 152 mg/dL; Very Low Density Lipoprotein 30 mg/dL (5-40)
== END | disposition home or self-care (01) ==
LOC: LAB 07:44
PROVIDERS: PCP Internal Medicine; Visit Provider Internal Medicine Rheumatology
DX: R07.9 Chest pain, unspecified (principal); I25.10 Atherosclerotic heart disease of native coronary artery without angina pectoris; I10 Essential (primary) hypertension; Z78.0 Asymptomatic menopausal state; M85.89 Other specified disorders of bone density and structure, multiple sites
CPT/HCPCS: 36415; 80053; 80061

== ENCOUNTER → 2023-08-25 | Outpatient (CLI) | payer MEDICAID, SELFPAY ==
--- NOTE | 2023-08-25 10:25 | CR.HP_ITS ---
CR - History & Physical General Arrival date:: 08/25/23 (initial CR assessment) Arrival time:: 10:30 Date of Referral:: 08/18/23 Date of CR Evaluation:: 08/25/23 Referring Physician: Satish Melissa Primary Diagnosis: Angina Pectoris History of Present Cardiac Event Onset Date Current stable Angina Pectoris:: Yes Acute Myocardial Infarction within 12 months:: No (February 2022) Coronary Artery Bypass Graft:: No Heart valve replacement or repair:: No PTCA or coronary stenting:: Yes Vessel: RCA 3 STENTS, 03/03 Heart or Heart-Lung Transplant:: No Heart Failure EF <35%:: No Medications Ambulatory Orders Medication Instructions Recorded nystatin 100,000 unit/gram topical 100,000 gm topical PRN PRN Skin 04/02/22 powder (Nystop) Cleansing biotin 5,000 mcg disintegrating 15,000 mcg PO DAILY SUPPLEMENT 08/26/22 tablet vitamin B complex (B 1 tab PO DAILY SUPPLEMENT 08/26/22 Complex-Vitamin B12 tablet) lisinopril 5 mg tablet 5 mg PO QHS BP 10/31/22 clopidogrel 75 mg tablet 75 mg PO DAILY BLOOD THINNER 11/05/22 glipizide 10 mg tablet, extended 10 mg PO BID DIABETIC 11/05/22 release 24 hr levothyroxine 88 mcg tablet 88 mcg PO DAILY THYROID 11/05/22 (Euthyrox) venlafaxine 150 mg 150 mg PO DAILY DEPRESSION 11/05/22 capsule,extended release 24 hr (Effexor XR) venlafaxine 75 mg tablet 75 mg PO DAILY DEPRESSION 11/05/22 sennosides 8.6 mg-docusate sodium 2 tab PO BID PRN PRN Constipation 11/27/22 50 mg tablet (Stool #0 tabs Softener-Stimulant Laxative) fluticasone propionate 50 1 spray intranasal BID PRN Sinus 12/05/22 mcg/actuation nasal Symptoms spray,suspension prednisone 5 mg tablet 2.5 mg (1/2 x 5 mg) PO DAILY #90 12/19/22 tabs butalbital 50 mg-acetaminophen 325 1 cap PO Q4H PRN Pain #30 caps 01/22/23 mg-caffeine 40 mg-codeine 30 mg cap ondansetron HCl 8 mg tablet 8 mg PO Q6H PRN 02/05/23 valacyclovir 1 gram tablet 1,000 mg PO DAILY PRN outbreak #20 04/03/23 (Valtrex) tabs oxycodone-acetaminophen 5 mg-325 1 tab PO Q8H PRN pain 3 days #10 04/12/23 mg tablet (Percocet) tabs famotidine 40 mg tablet 40 mg PO DAILY #90 tabs 04/16/23 pen needle, diabetic 31 gauge x #100 ea 05/20/2312/26 (Sure-Fine Pen Leburn) hydroxychloroquine 200 mg tablet 200 mg PO BID RA #60 tabs 05/27/23 carvedilol 3.125 mg tablet 6.25 mg PO BID BP/HEART 06/11/23 rosuvastatin 10 mg tablet (Crestor) 20 mg PO QHS CHOLESTEROL 06/11/23 amlodipine 10 mg tablet 10 mg PO BID BP #90 tabs 07/09/23 Allergies Allergies iron Allergy (Severe, Verified 08/07/23 11:15) Other can not take PO iron is ok with iron infusions Iodinated Contrast Media [IVP dye] Allergy (Intermediate, Verified 08/07/23 11:15) Hives Seasonal Allergies: Uncoded Allergy (Mild, Verified 08/07/23 11:15) Hives levofloxacin [From Levaquin] Allergy (Verified 08/07/23 11:15) PT UNSURE OF REACTION possible hives/itching liraglutide [From Victoza] Allergy (Verified 08/07/23 11:15) dehydration - ended up in hospital Sulfa (Sulfonamide Antibiotics) [sulfa drugs] Allergy (Verified 08/07/23 11:15) pt states has tolerated some methylprednisolone [From Solu-Medrol] Adverse Reaction (Intermediate, Verified 08/07/23 11:15) HALLUCINATIONS acetaminophen [From Percocet] Adverse Reaction (Verified 08/07/23 11:15) Itching can take w/ benadryl adhesive Adverse Reaction (Verified 08/07/23 11:15) Rash hydrochlorothiazide Adverse Reaction (Verified 08/07/23 11:15) pt can tke tablet, but not capsule hydrocodone Adverse Reaction (Verified 08/07/23 11:15) Itching can take w/ benadryl oxycodone [From Percocet] Adverse Reaction (Verified 08/07/23 11:15) Itching can take w/ benadryl Sleep Disorder Evaluation Hx of Sleep Apnea: No Do you snore loudly (louder than talking or can be heard through closed doors)?: Yes Do you often feel tired/ fatigued/ sleepy during daytime?: Yes Has anyone observed you stop breathing during sleep?: Yes History of Hypertension (for STOP score): Yes STOP Results: Positive Advanced Directives Advanced Directives Power of Traffic Investigator: No Living Will: No Advance Directives Information Provided: Yes Advance Directives on File: No DNR Order?:: No Past Medical History Covid-19 Screening Physicial Symptoms Fever: No Unexplained muscle aches: No Current respiratory symptoms: No Upper respiratory infections symptoms: No Gastro-intestinal symptoms: No Gmp-Cnoa-Uenhai symptoms: No Other Clinical Concerns Has tested positive for COVID-19 in last 30 days: No Exposure Risk Had contact w/person w/symptoms or Covid-19 (+) last 14 days: No Has High Risk Exposures ID'd by Health dept/Inf Control team: No Pertinent Comorbidities 65 years or older:: No Lives in Assisted Living facility:: No Has a chronic lung disease or moderate to severe asthma:: No Has a serious heart condition:: Yes Immunocompromised:: No Severely obese (Body Mass Index of 40 or higher):: No Diabetic:: Yes Has chronic kidney disease undergoing dialysis:: No Has liver disease:: No Past Medical Illness Medical History Acid reflux Acute blood loss anemia Anemia Anxiety Breast cyst Cancer Cardiology follow-up encounter Carpal tunnel syndrome Diabetes Dietary restriction Erythromelalgia Fibromyalgia Foot fracture, left Foot fracture, right Former smoker Gastric reflux Gastroenteritis Hepatitis History of chronic kidney disease History of COVID-19 History of diabetes mellitus History of echocardiogram History of heart attack History of renal disease History of steroid therapy Hypertension Infectious mononucleosis Injury of head and neck Leg cramps Low iron Measles Migraines Neuropathy Osteopenia Post-menopausal Rheumatoid arthritis Seasonal allergies Shingles Shortness of breath on exertion Small fiber neuropathy Thyroid disease UTI (urinary tract infection) Past Surgical History Surgical History H/O heart artery stent History of lumbar laminectomy Hx of appendectomy Hx of cholecystectomy Hx of colonoscopy Hx of fusion of cervical spine Hx of release of tendon Hx of tonsillectomy Surgical History: - (CARDIAC CATH) Family History Summary Family History Grandfather Cancer Heart disease Father Cancer Heart disease Diabetes Uncle Cancer Aunt Cancer Brother Heart disease Social History Smoking History Smoking Status: Former smoker Years Smokin Packs Smoked per Day: 1.5 Hx Tobacco Use: Yes Hx Smoking Exposure: Yes Alcohol Use Alcohol Usage: No Substance Abuse Hx Substance Use: No Occupation Occupation (List type of work in comments):: Unemployed Hobbies, Recreation, Social Activities Hobbies: Watch TV and Other (card games) Recreational Activities: I can hardly do any recreational activities Social Environment Status Marital Status: Current Living Arrangements Living Environment:: Family (mom) Children How many children do you have?: 0 Do any of your children live nearby?: No Safety Do you feel safe in your surroundings?: Yes Review of Systems Review of Systems Hints Review of Present Symptoms: Reports Shortness of Breath with Exertion, Angina, Dizziness/Lightheadedness (occasional with standing up to fast), Fatigue, Heart Arrhythmia/Irregularities (skips a beat occasionally), Appetite - Normal and Appetite - Special Diet (low sodium) Pain Is Patient Pain Free?: No Pain Location: neck (shoulders), back and lower extremity (feet, has neuropathy) Pain Level: 10 Risk Factor Assessment Chief Complaint Chief Complaint: angina Vital Signs Pulse Ox: 96 Blood Pressure: 122/50 Pulse Pulse Rate: 56 Pulse Rhythm: Regular Hypertension How long have you been treated?: since the 80's On medication(s)?: yes Blood Pressure Sitting - Left Arm: 122/50 Stress Stress: Long-standing and Home/Family Diabetes Diabetic History: Type II and Medication Dependent Nutrition Referral for Diabetes: Yes Obesity Height: 5 ft 8 in Weight:: 185 lb Weight in Pounds: 185.0 lbs Weight Source: Stated by Patient Body Mass Index (BMI): 28.1 Nutritional Referral for Obesity: Yes Physical Inactivity Physical Inactivity: None Risk Stratification Risk Guidelines: Moderate Risk: Risk Factor for Smoking, Risk Factor for Diabetes, Risk Factor for Obesity, Risk Factor for Sedentary Lifestyle and Risk Factor for Depression and Highest Risk: Risk Factor for Dyslipidemia and Risk Factor for Hypertension For Smoking Smoking Risk Guidelines For Dyslipidemia Dyslipidemia Risk Guidelines For Diabetes Mellitus Diabetes Risk Guidelines For Obesity/Overweight Obesity/Overweight Risk Guidelines For Hypertension Hypertension Risk Guidelines For Sedentary Lifestyle Sedentary Lifestyle Risk Guidelines For Depression Depression Risk Guidelines Family History Family History Grandfather Cancer Heart disease Father Cancer Heart disease Diabetes Uncle Cancer Aunt Cancer Brother Heart disease Motivation Motivation to Participate On a scale of 1 to 10, how prepared are you to commit to attending program?: 10 What do you see as barriers to successfully being able to complete the program?: pain level, doctors appointments What do you see as the benefits of succesfully completing the program? In other words, what do you hope to get out of participating in the program?: hope to feel improved energy, strength, breathing, and be educated Are there issues you are dealing with that will interfere with completing the program?: Pain Do you have a spouse or signficant other, family or friends who will help support you to complete the program?: mom
--- NOTE | 2023-08-25 10:45 | PCM.CR.ITP ---
Diagnosis General Information Admitting Diagnosis: Angina Pectoris Personal Learning Style:: Audio/Visual and Demonstration Barriers to Learning: Vision Impairment (wears glasses) Stage of change r/t lifestyle modifications:: Contemplation Gave educational material for:: Treating Heart Disease, How The Heart Works, What it means to have Heart Disease, How Coronary Artery Disease is Diagnosed, Heart Procedures, What Heart Medications Do, Risk Factors & Modifications, Living an Active Life, Nutrition, Emotions & Heart Disease, Stress Management & Relaxation and Sleep Disorders & Heart Disease Education/Goals Individual Counseling: Initial Assessment: High Blood Pressure, Overweight/Obesity, Diabetes, Hypertension, Sedentary Lifestyle and Family History of Heart Disease (under 65 years) Cardiac Rehabilitation Goals Personal Goals: Initial Assessment: Improve energy level, Participate in home exercise program, Improve knowledge of cardiac disease, Improve muscle strength and endurance, Improve diet and eating habits (eat healthier) and Control risk factors (learn risk factor modification) Scale for measuring improvement of personal goals Diagnosis & Disease Process Outcomes/Goals: Pt IDs own risk factors & lifestyle modifications by Session 10, Verbalizes symptoms of angina & response by session 3. and Pt independently manages Plan/Interventions: Assist Pt to ID & engage in lifestyle modification to reduce CVD risk, Instruct on individual risk factors, Review symptoms of angina & emergency actions and Review secondary diagnosis & identify educational needs. Safety Referral to Physical Therapy: No Referral to [facility] Case Management: No Fall Risk Assessed:: Yes Assistive Devices:: Walker (occasional) and Wheelchair (occasional) Exercise - Initial Assessment Visit Date of Eval: 08/25/23 (initial eval) Mets: Pre-: >3 METS for 30 minutes by discharge, >5 METS for 30 minutes by discharge and >7 METS for 30 minutes by discharge Physician Prescribed Exercise Modalities: Treadmill, Rower, Airdyne, NuStep and SciFit Frequency: 3x/week for 12 weeks [36 sessions] Intensity: 60-80% of age predicted maximum heart rate reserve Duration: 30 - 45 minutes METs - Progression 0.5-1.0 weekly:: 3 Target Heart Rate:: 94-118 Target RPE 12-16:: 12-16 EKG Type: Sinus Bradycardia Current Physical Activity or Exercising minutes: yard work Outcomes & Goals Goals:: Verbalizes understanding of THR, RPE & goal METS by session 6, Documents in home exercise log/reports 30 min aerobic 5 day/wk by DC and Demonstrates accurate pulse taking by DC Intervention & Plan Exercise Program Goals: Instruct on personal THR & RPE, Instruct on MET level & personal MET goal, Show patient to take own pulse /validate performance until accurate and Instruct on home exercise Physical Activity Home Exercise Physical Activity - Home Exercise: Safe Exercise, Warm-up, Self-monitoring, Cool-Down, Home Exercise > 30 min Daily and Sitting Time <3 hours/daily Outcomes & Goals Outcomes/Goals: Demonstrates correct Warm-up/exercise Cool-Down (S3) if = 2.5 METs, Verbalizes symptoms of exercise intolerance by Session 3 (S3) and Demonstrate safe equipment use (S3) & follows exercise prescrition (6) Intervention & Plan Plan/Intervention: Instruct warm-up & cool-down if exercising at > 2 METs, Instruct on symptoms of exercise intolerance & actions to take, Instruct & monitor on saf and Assess intial functional capacity & safety risk Nutrition - Initial Assessment Program Goals Nutrition Program Goals Patient has diagnosis of Hyperlipidemia (ICD E78)?: Yes Visit Date of Eval: 08/25/23 (initial eval) Cholesterol/Lipids (Other Core Measures) Determine presence & major risk factors that modify LDL goal: Hypertension or hypertensive medication and Age men > 45 years; women >/= 55 years Outcomes/Goals: Pt IDs own risk factors & lifestyle modifications by Session 10, Verbalizes symptoms of angina & response by session 3. and Pt independently manages Intervention/Plan: Advocate for lipid panel cholesterol medication if applicable, Instruct on personal lipid levels & lipid goals/NCEP guidelines and Instruct on cholesterol Referral to dietitian:: Yes Diabetes (Other Core Measures) Diabetes Type: Diagnosis Type II ICD-10 E11 Insulin dependent injection/pump?: No Non-Insulin Dependent?: No Do you monitor your blood sugar at home?: Yes Referral to Diabetic Clinic:: Yes Outcomes/Goals:: Able to state symptoms of, Able to state and Able to state Intervention/Plan:: Instruct on, Refer to and Instruct on Weight Mgt (Other Care) Height: 5 ft 8 in Weight:: 185 lb BMI: 28.1 BMI (Report if calculated above): 28.1 Diagnosis Overweight/Obesity BMI> 30% ICD-10 E66: No Diagnosis High BMI/Morbid Obesity BMI> 35% ICD-10 Z68: No Outcomes/Goals: Pt sets, maintains & shows weight loss goal & trend during rehab Intervention/Plan: Instruct on ideal BMI & set weight loss goal w/patient, Assist pt to ID & incorporate diet changes for weight loss by S9 and Refer to Structured Weight Loss program as appropriate Healthy Eating Habits Will attend diet classes:: Yes Outcomes/Goals:: Consume diet rich in vegs,fruits,whole grain/high fiber,fish,lean meat and Limit sat/trans fats,cholesterol & added salts & sugars Intervention/Plan:: Assess current eating habits Education Gave educational materials for:: Signs & symptoms of hypoglycemia, Signs & symptoms of hyperglycemia, Relate diabetes to coronary artery disease and Healthy eating Core - Initial Assessment Visit Date of Eval: 08/25/23 (initial eval) Medication Compliance Preventative Medication(s):: Aspirin, DAYAN inhibitor, Clopidogrel/P2Y12 inhibit, Statin/lipid and Beta jessi H/O mental health issues: depression, anxiety, or addiction?: Yes Doesn?t believe in the benefits of treatment?: No Believes medications are unnecessary or harmful?: No Has a concern about medication side effects?: No Expresses concern over the cost of medications?: No Outcomes/Goals: Verbalizes medications,desired effect & common side effects @ DC, Pt self-reports following medication regimen and Keeps card in wallet w/medications listed by DC Interventions/plans: Instruct on medication effects & side effects, Review medication list w/patient every two weeks and Instruct importance of taking meds as ordered & assist problem solving Tobacco Use Tobacco Use: Non-smoker (former) How long ago did you quit using tobacco products?: Greater than or equal to 6 months ago Years Smokin Do you use smokeless tobacco?: No Outcomes/Goals: Smoking cessation achieved or maintained by discharge Interventions/plan: Assist pt to develop strategies to achieve/maintain quit date Hypertension Hypertension Diagnosis:: Hypertension ICD-10 I10 [place] [employer] Hypertension Guidelines Outcomes/Goals: Able to verbalize/achieve optimal blood pressure <130/80 and Incorporates diet changes & exercise for blood pressure control by DC Interventions/plan: Instruct on optimal blood pressure, hypertension & medications and Instruct on effects of sodium, alcohol, stress, exercise &hypertension Tobacco Cessation Referral Smoking Cessation Referral:: No Individual Education/Counseling:: No Education Schedule Given:: Yes Psychosocial - Initial Assess VIsit Date of Eval: 08/25/23 (initial asssesment) History of previous Mental disease:: Yes History of Emotional Disorders: Anxious Self-reported stressors: Family, Financial and Medical/Health Target Goals Target Goals Psychosocial Test Tool Used:: PHQ-9 Questionnaire phq-9 Severity See PHQ-9 Score: 11 Total Score:: 11 Referral to Behavioral Health PS - Interventions: Yes: Attend Stress Management Classes and No: Referral to Behavioral Health if PHQ-9 score >9: (does not want referral.), No: Referral to [facility] and No: Referral to Physician if PHQ-9 if score is 5-9: Outcomes/Goals: See list Psychosocial Outcomes/Goals:: ID's personal stressors & 2 strategies to manage stress by discharge Intervention/Plan: See List Interventions/Plan:: Assess stressors,coping strategies & signs of derpression on admission, Instruct/assist pt to develop coping & personal stress Mgt strategies, Refer to Behavioral Health if appropriate, Refer to Physician if appropriate, Instruct patient to recognize signs & symptoms of depression and Instruct patient to recog Patient Health Questionnaire PHQ-9 Screening Initial Assessment: 1. Little interest or pleasure in doing things: Several days 2. Feeling down, depressed, or hopeless: Several days 3. Trouble falling or staying asleep, or sleeping too much: More than half the days 4. Feeling tired or having little energy: Nearly every day 5. Poor appetite or overeating: More than half the days 6. Feeling bad about yourself -- or that you are a failure or have let yourself or your family down: More than half the days 7. Trouble concentrating on things, such as reading the newspaper or watching television: Not at all 8. Moving or speaking so slowly that other people could have noticed. Or the opposite - being so fidgety or restless that you have been moving around a lot more than usual: Not at all 9. Thoughts that you would be better off , or of hurting yourself in some way: Not at all How difficult have these problems made it for you to do your work, take care of things at home, or get along with other people?: Somewhat difficult Total Score: 11 LINSEY-Q SV Test Statements CAD is a disease of the arteries in the heart: False Examples of risk factors for heart disease: True Angina is chest pain or discomfort: True The benefits of resistance training include: True Eating more meat and dairy products: False Anti-platelet medications such as aspirin are important: False The only effective way to manage stress: False An exercise warm-up slowly increases heart rate: I Don't Know Prepared, processed foods usually have high sodium: True Depression is common after a heart attack: I Don't Know The statin medications lower cholesterol: True To control blood pressure, lower the amount of sodium: True If someone gets chest discomfort during walking: False Transfats are partially hydrogenated vegetable oils: True Sleep apnea that is not treated increases the risk: I Don't Know To control cholesterol, one should become a vegetarian: I Don't Know Someone knows if he/she is exercising at the right level: I Don't Know Diabetes cannot be prevented with exercise & health eating: True Stress is a large risk for heart attack: True A diet that can help lower blood pressure is rich in: True Total Score Total Correct Responses: 13 Self-Efficacy 6-Item Scale Initial Assessment: We would like to know how confident you are in doing certain activities. Please select your confidence level for: Fatigue Select Number: 4 Physical Discomfort or Pain Select Number: 4 Emotional Distress Select Number: 4 Other Symptoms or Health Problems Select Number: 6 Different Tasks and Activities Select Number: 5 Medication Select Number: 4 Total Score:: 4 Nutrition Survey Nutrition Survey Instructions Scoring Instructions Nutrition Survey Initial: Have you lost >10 lbs over the past 2 months without trying?: Yes Are you following a special diet at home for diabetes, low fat, or low salt?: No Are you interested in meeting with a dietitian for help understanding your diet?: Yes Do you eat less than 3 meals a day?: No Do you eat fatty meats (he, sausage, ribs, etc), fried foods, desserts, large amounts of salad dressings, margarine, butter, or cheese most days?: Yes Do you have food allergies? [Enter types in comment field]: No Do you eat in restaurants more than 3 times a week?: No Do you season food with salt, seasoning salt, or garlic salt?: No Do you used canned, boxed, frozen meals, or soups, seasoning packets?: Yes Total Score:: 4 Exercise - Final/Discharge Physician Prescribed Exercise Modalities: Treadmill, Rower, Airdyne, NuStep and SciFit Frequency: 3x/week for 12 weeks [36 sessions] Intensity: 60-80% of age predicted maximum heart rate reserve METs - Progression 0.5-1.0 weekly:: 3 Target Heart Rate:: 94-118 Nutrition - 30-Day Assessment Weight Mgt (Other Care) Height: 5 ft 8 in Weight:: 185 lb BMI: 28.1 BMI (Report if calculated above): 28.1 Nutrition - 60-Day Assessment Weight Mgt (Other Care) Height: 5 ft 8 in Weight:: 185 lb BMI: 28.1 BMI (Report if calculated above): 28.1 Core - 30-Day Assessment Tobacco Use Years Smokin Psychosocial - 30-Day Assess Target Goals Target Goals Referral to Behavioral Health PS - Interventions: Yes: Attend Stress Management Classes and No: Referral to Behavioral Health if PHQ-9 score >9: (does not want referral.), No: Referral to [facility] and No: Referral to Physician if PHQ-9 if score is 5-9: Psychosocial - 60-Day Assess Target Goals Target Goals Referral to Behavioral Health PS - Interventions: Yes: Attend Stress Management Classes and No: Referral to Behavioral Health if PHQ-9 score >9: (does not want referral.), No: Referral to [facility] and No: Referral to Physician if PHQ-9 if score is 5-9: Psychosocial - 90-Day Assess Target Goals Target Goals Referral to Behavioral Health PS - Interventions: Yes: Attend Stress Management Classes and No: Referral to Behavioral Health if PHQ-9 score >9: (does not want referral.), No: Referral to [facility] and No: Referral to Physician if PHQ-9 if score is 5-9: Psychosocial - Final Assessmen Target Goals Target Goals Psychosocial Test phq-9 Severity See PHQ-9 Score: 11 Total Score:: 11 Referral to Behavioral Health PS - Interventions: Yes: Attend Stress Management Classes and No: Referral to Behavioral Health if PHQ-9 score >9: (does not want referral.), No: Referral to [facility] and No: Referral to Physician if PHQ-9 if score is 5-9: Nutrition - 90-Day Assessment Weight Mgt (Other Care) Height: 5 ft 8 in Weight:: 185 lb BMI: 28.1 BMI (Report if calculated above): 28.1 Nutrition - Final Assessment Program Goals Patient has diagnosis of Hyperlipidemia (ICD E78)?: Yes Weight Mgt (Other Care) Height: 5 ft 8 in Weight:: 185 lb BMI: 28.1 BMI (Report if calculated above): 28.1
[2023-08-25 10:54] VITALS: BMI 28.1
[2023-08-25 11:37] VITALS: BP 122/50; PULSE 56; O2SAT 96
[2023-08-25 12:03] VITALS: BMI 28.1
[2023-08-25 12:16] VITALS: BMI 28.1
== END | disposition home or self-care (01) ==
LOC: CR 10:20
PROVIDERS: PCP Internal Medicine
DX: I20.9 Angina pectoris, unspecified (principal); Z95.5 Presence of coronary angioplasty implant and graft; I10 Essential (primary) hypertension; R06.83 Snoring; Z90.49 Acquired absence of other specified parts of digestive tract; Z87.891 Personal history of nicotine dependence; R06.02 Shortness of breath; R42 Dizziness and giddiness; R53.83 Other fatigue; I49.9 Cardiac arrhythmia, unspecified

== ENCOUNTER → 2023-08-27 | Outpatient (CLI) | payer MEDICAID, SELFPAY ==
[2023-08-25 12:03] VITALS: BMI 28.1
[2023-08-27 10:36] LABS: Mucous, Urine 0 SEEN /hpf (<or=2+); Squamous Epithelial Cells - UA 0 SEEN /hpf (5-10)
[2023-08-27 10:45] LABS: Color, Urine Yellow (Yellow); Glucose, Dipstick Normal (Normal); Ketone-Dipstick Negative (Negative); Leukocyte Esterase-Dipstick 100 /ul (Negative); Nitrite-Dipstick Negative (Negative); Occult Blood-Urine 10 /ul (Negative); Protein-Dipstick 100 mg/dl (Negative); Urine Bilirubin Dipstick Negative (Negative); Urine Clarity Clear (Clear); Urine Urobilinogen Normal (Normal)
[2023-08-27 10:51] LABS: Anion Gap 4 (5-15); BUN 20 mg/dL (7-18); BUN/Creat Ratio 15.3 RATIO (10-20); Calcium,Total 9.2 mg/dL (8.5-10.1); Chloride 110 mmol/L (98-107); Creatinine, Serum 1.31 mg/dL (0.55-1.02); EST Glomerular Filtration Rate 44 mL/min (>60); Est Glom Filt Rate - Afr Amer 53 mL/min (>60); Glucose 202 mg/dL (74-106); Magnesium 2.1 mg/dL (1.6-2.6); Sodium Level 141 mmol/L (136-145)
[2023-08-27 11:03] LABS: Bacteria RARE /hpf (None Seen); Red Blood Cells-Urine 0-5 SEEN /hpf (0-5); White Blood Cells 5-10 SEEN /hpf (0-5)
== END | disposition home or self-care (01) ==
PROVIDERS: Physician Assistant Surgical; PCP Internal Medicine; Referring Provider Internal Medicine; Visit Provider Internal Medicine
DX: I12.9 Hypertensive chronic kidney disease with stage 1 through stage 4 chronic kidney disease, or unspecified chronic kidney disease (principal); N18.31 Chronic kidney disease, stage 3a; R10.9 Unspecified abdominal pain
CPT/HCPCS: 36415; 80048; 81001; 83735; 87086

== ENCOUNTER 2023-09-10 11:30 | Outpatient (RCR) | payer MEDICAID, SELFPAY ==
[2023-08-25 12:03] VITALS: BMI 28.1
== END 2023-09-11 23:59 ==
LOC: CR 11:30
PROVIDERS: PCP Internal Medicine
DX: I20.9 Angina pectoris, unspecified (principal); I25.10 Atherosclerotic heart disease of native coronary artery without angina pectoris
CPT/HCPCS: 93798

== ENCOUNTER → 2023-09-15 | Outpatient (CLI) | payer MEDICAID, SELFPAY ==
[2023-08-25 12:03] VITALS: BMI 28.1
--- NOTE | 2023-09-15 12:07 | BI_ITS ---
MAMMOGRAPHY - BILATERAL SCREENING REASON FOR EXAM: Female, 63 years old. Routine annual screening examination. PERTINENT HISTORY: Non-contributory. There are multiple left excisional breast biopsy. TECHNIQUE: Digital bilateral breast niru (3D mammographic acquisition) in the CC and MLO projections. 2-D mediolateral oblique (MLO) and craniocaudad (CC) views of both breasts were obtained. CAD: Full Field Digital Mammography with Computer Added Detection was performed. COMPARISON: Comparison is made with prior study dated September 11, 2022. FINDINGS: Breast Composition: There are scattered areas of fibroglandular density. There are no dominant masses or suspicious calcifications. Stable asymmetry of breast tissue where more breast tissue is seen in the anterior upper outer aspect of the left breast as compared to the right side. No other significant abnormalities are identified. There has been no significant change since the prior study. BI/SCRN MAMM (CAD)W/NIRU BILAT IMPRESSION: Stable bilateral screening mammogram. Yearly follow-up mammogram recommended. (A) ASSESSMENT CATEGORY: BIRADS Category 2: Benign. A letter regarding these results will be sent to the patient by the facility within 30 days. Approximately 10% of breast cancers are not detected by mammography. A normal mammogram should not delay biopsy of a clinically suspicious abnormality. [id number] Electronically Signed: Franco Sullivan MD at 13:23 EST ,
== END | disposition home or self-care (01) ==
LOC: OPBI 12:07
PROVIDERS: PCP Internal Medicine; Referring Provider Internal Medicine; Visit Provider Internal Medicine
DX: Z12.31 Encounter for screening mammogram for malignant neoplasm of breast (principal)
CPT/HCPCS: 77063; 77067

== ENCOUNTER → 2023-09-22 | Outpatient (CLI) | payer MEDICAID, SELFPAY ==
[2023-09-19 09:11] VITALS: BMI 28.1
== END | disposition home or self-care (01) ==
LOC: LABSPEC 16:19
PROVIDERS: PCP Internal Medicine; Referring Provider Obstetrics & Gynecology; Visit Provider Obstetrics & Gynecology
DX: N89.8 Other specified noninflammatory disorders of vagina (principal)
CPT/HCPCS: 87070; 87205

== ENCOUNTER → 2023-09-29 | Outpatient (CLI) | payer MEDICAID, SELFPAY ==
[2023-09-19 09:11] VITALS: BMI 28.1
[2023-09-24 10:38] VITALS: BMI 27.6
--- NOTE | 2023-09-29 17:25 | US_ITS ---
INDICATION: BLEEDING EXAMINATION: Ultrasound US Pelvis Non OB Complete With Transvaginal Imaging TECHNIQUE: Transabdominal and transvaginal pelvic ultrasound was performed. Grayscale, spectral waveform, and color flow Doppler evaluation of the adnexa. COMPARISON: FINDINGS: UTERUS: Anteverted. The uterus measures 5.6 x 4.1 x 2.4 cm. There is no uterine mass. The endometrial stripe measures 1.4 mm in AP diameter which is within normal limits. There is a 6 mm nabothian cyst or focal fluid within the cervical canal. RIGHT OVARY: Nonvisualization. LEFT OVARY: Nonvisualization. FREE FLUID: None. US/Pelvic w/ Transvaginal IMPRESSION: There is a nabothian cyst or focal fluid within the cervical canal. Electronically Signed: Simba Cash DO at 19:43 EST Reading Location ID and State: [facility] / [place] Tel [phone], Service support ,
== END | disposition home or self-care (01) ==
LOC: US 17:19
PROVIDERS: PCP Internal Medicine; Referring Provider Obstetrics & Gynecology; Visit Provider Obstetrics & Gynecology
DX: R10.2 Pelvic and perineal pain (principal)
CPT/HCPCS: 76830; 76856

== ENCOUNTER 2023-10-01 11:30 | Outpatient (RCR) | payer MEDICAID, SELFPAY ==
[2023-08-25 12:03] VITALS: BMI 28.1
--- NOTE | 2023-09-24 10:29 | CR.ITP_ITS ---
Exercise - Initial Assessment Visit Session #:: 7 Nutrition - Initial Assessment Weight Mgt (Other Care) Height: 5 ft 8 in Weight:: 181 lb 8 oz BMI: 27.6 Psychosocial - Initial Assess Target Goals Target Goals Patient Health Questionnaire PHQ-9 Screening 30-Day Re-eval Assessment: 1. Little interest or pleasure in doing things: Several days 2. Feeling down, depressed, or hopeless: Several days 3. Trouble falling or staying asleep, or sleeping too much: More than half the days 4. Feeling tired or having little energy: Nearly every day 5. Poor appetite or overeating: More than half the days 6. Feeling bad about yourself -- or that you are a failure or have let yourself or your family down: More than half the days 7. Trouble concentrating on things, such as reading the newspaper or [employer] television: Not at all 8. Moving or speaking so slowly that other people could have noticed. Or the opposite - being so fidgety or restless that you have been moving around a lot more than usual: Not at all 9. Thoughts that you would be better off , or of hurting yourself in some way: Not at all How difficult have these problems made it for you to do your work, take care of things at home, or get along with other people?: Somewhat difficult Total Score: 11 Self-Efficacy 6-Item Scale 30-Day Re-eval Assessment: We would like to know how confident you are in doing certain activities. Please select your confidence level for: Fatigue Select Number: 4 Physical Discomfort or Pain Select Number: 4 Emotional Distress Select Number: 4 Other Symptoms or Health Problems Select Number: 6 Different Tasks and Activities Select Number: 5 Medication Select Number: 4 Total Score:: 4 Nutrition Survey Nutrition Survey Instructions Scoring Instructions Exercise - 30-day Assessment Visit Date of Eval: 09/24/23 Session #:: 7 Physician Prescribed Exercise Modalities: NuStep Frequency: 3x/week for 12 weeks [36 sessions] Intensity: 60-80% of age predicted maximum heart rate reserve Duration: 30 - 45 minutes Current METSs:: 3 Target Heart Rate:: 94-118 Current RPE:: 11 Maximum Excercise HR:: 71 Resting Blood Pressure: 128/52 Maximum Exercise Blood Pressure: 140/54 EKG Type: NSR/BBB with occas to freq PAC's Outcomes & Goals Goals:: Verbalizes understanding of THR, RPE & goal METS by session 6, Documents in home exercise log/reports 30 min aerobic 5 day/wk by DC, Demonstrates accurate pulse taking by DC and Other additional outcome/goals: see below Intervention & Plan Exercise Program Goals: Instruct on personal THR & RPE, Instruct on MET level & personal MET goal, Show patient to take own pulse /validate performance until accurate, Instruct on home exercise and Other additional plan/int 30-day Reassessments 30 day Reassessments:: Progressing Reassessment Notes & Comments:: RPE explained Physical Activity Home Exercise Physical Activity - Home Exercise: Safe Exercise, Warm-up, Self-monitoring, Cool-Down, Home Exercise > 30 min Daily and Sitting Time <3 hours/daily Outcomes & Goals Outcomes/Goals: Demonstrates correct Warm-up/exercise Cool-Down (S3) if = 2.5 METs, Verbalizes symptoms of exercise intolerance by Session 3 (S3), Demonstrate safe equipment use (S3) & follows exercise prescrition (6) and Other: See below Intervention & Plan Plan/Intervention: Instruct warm-up & cool-down if exercising at > 2 METs, Instruct on symptoms of exercise intolerance & actions to take, Instruct & monitor on saf, Assess intial functional capacity & safety risk and Other See below 30-day Reassessments 30 day Reassessments:: Progressing Reassessment Notes & Comments:: warm up encouraged Nutrition - 30-Day Assessment Program Goals Nutrition Program Goals Patient has diagnosis of Hyperlipidemia (ICD E78)?: Yes Visit Date of Eval: 09/24/23 Session #:: 7 Cholesterol/Lipids (Other Core Measures) Determine presence & major risk factors that modify LDL goal: Hypertension or hypertensive medication, Low HDL cholesterol <40 mg/dL*, Family history of premature CHD in Male < 55 years: female <65 yearsFa and Age men > 45 years; women >/= 55 years Outcomes/Goals: Pt IDs own risk factors & lifestyle modifications by Session 10, Verbalizes symptoms of angina & response by session 3., Pt independently manages and Other Additional Outcomes/Goals: Intervention/Plan: Advocate for lipid panel cholesterol medication if applicable, Instruct on personal lipid levels & lipid goals/NCEP guidelines, Instruct on cholesterol and Other additional plan/int 30-day Reassessments:: Progressing Reassessment Notes & Comments:: pt to attend nutrition class Diabetes (Other Core Measures) Diabetes Type: Diagnosis Type I ICD-10 E10 Insulin dependent injection/pump?: No Non-Insulin Dependent?: No Do you monitor your blood sugar at home?: Yes Referral to Diabetic Clinic:: Yes Outcomes/Goals:: Able to state symptoms of, Able to state, Able to state and Other additional Intervention/Plan:: Instruct on, Refer to, Instruct on and Other 30-day Reassessments:: Progressing Reassessment Notes & Comments:: pt to attend nutrition class Weight Mgt (Other Care) Height: 5 ft 8 in Weight:: 181 lb 8 oz BMI: 27.6 Diagnosis Overweight/Obesity BMI> 30% ICD-10 E66: No Diagnosis High BMI/Morbid Obesity BMI> 35% ICD-10 Z68: No Outcomes/Goals: Pt sets, maintains & shows weight loss goal & trend during rehab and Other additional outcomes/goals Intervention/Plan: Instruct on ideal BMI & set weight loss goal w/patient, Assist pt to ID & incorporate diet changes for weight loss by S9, Refer to Structured Weight Loss program as appropriate, Encourage goal of using 250-300dc al per session for weight loss and Other additional plan/interventions 30 day Reassessments:: Progressing Reassessment Notes & Comments:: pt to attend nutrition class Healthy Eating Habits Will attend diet classes:: Yes Outcomes/Goals:: Consume diet rich in vegs,fruits,whole grain/high fiber,fish,lean meat, Limit sat/trans fats,cholesterol & added salts & sugars and Other additional outcome/goals: Intervention/Plan:: Assess current eating habits and Other Additional plan/interventions 30-day Reassessments:: Progressing Reassessment Notes & Comments:: pt to attend nutrition class Nutrition - 60-Day Assessment Weight Mgt (Other Care) Height: 5 ft 8 in Weight:: 181 lb 8 oz BMI: 27.6 Core - 30-Day Assessment Visit Date of Eval: 09/24/23 Session #:: 7 Medication Compliance Preventative Medication(s):: Aspirin, DAYAN inhibitor, Clopidogrel/P2Y12 inhibit, Statin/lipid and Beta jessi H/O mental health issues: depression, anxiety, or addiction?: Yes Doesn?t believe in the benefits of treatment?: No Believes medications are unnecessary or harmful?: No Has a concern about medication side effects?: No Expresses concern over the cost of medications?: No Outcomes/Goals: Verbalizes medications,desired effect & common side effects @ DC, Pt self-reports following medication regimen, Keeps card in wallet w/medications listed by DC and Other additional outcome/goals: Interventions/plans: Instruct on medication effects & side effects, Review medication list w/patient every two weeks, Instruct importance of taking meds as ordered & assist problem solving and Other additional 30-day Reassessments:: Progressing Reassessment Notes & Comments:: pt encouraged to take her meds Tobacco Use Tobacco Use: Non-smoker Hypertension Hypertension Diagnosis:: Hypertension ICD-10 I10 Resting Blood Pressure:: 128/52 [place] [employer] Hypertension Guidelines Peak Exercise Blood Pressure:: 140/54 Outcomes/Goals: Able to verbalize/achieve optimal blood pressure <130/80, Incorporates diet changes & exercise for blood pressure control by DC and Other additional outcomes/goals 30 day Reassessments:: Progressing Reassessment Notes & Comments:: pt encouraged to take her meds Tobacco Cessation Referral Smoking Cessation Referral:: No Individual Education/Counseling:: No Education Schedule Given:: Yes Psychosocial - 30-Day Assess VIsit Date of Eval: 09/24/23 Session #:: 7 History of Emotional Disorders: Anxious Self-reported stressors Other/Comments:: Family, Financial and Medical/Health Target Goals Target Goals Psychosocial Test Tool Used:: [employer] QOL Cardiac and PHQ-9 Questionnaire phq-9 Severity Outcomes/Goals: See list Psychosocial Outcomes/Goals:: ID's personal stressors & 2 strategies to manage stress by discharge and Other Additional outcome/goals: Intervention/Plan: See List Interventions/Plan:: Assess stressors,coping strategies & signs of derpression on admission, Instruct/assist pt to develop coping & personal stress Mgt strategies, Refer to Behavioral Health if appropriate, Refer to Physician if appropriate, Instruct patient to recognize signs & symptoms of depression, Instruct patient to recog and Other additional plan/intervention 30-day Reassessments: 30 day Reassessments:: Progressing Reassessment Notes & Comments:: pt is doing well Psychosocial - 60-Day Assess Target Goals Target Goals Outcomes/Goals: See list Psychosocial Outcomes/Goals:: ID's personal stressors & 2 strategies to manage stress by discharge and Other Additional outcome/goals: Psychosocial - 90-Day Assess Target Goals Target Goals Psychosocial - Final Assessmen Target Goals Target Goals Nutrition - 90-Day Assessment Weight Mgt (Other Care) Height: 5 ft 8 in Weight:: 181 lb 8 oz BMI: 27.6 Nutrition - Final Assessment Weight Mgt (Other Care) Height: 5 ft 8 in Weight:: 181 lb 8 oz BMI: 27.6
[2023-09-24 10:38] VITALS: BP 128/52; BMI 27.6
== END 2023-10-12 23:59 ==
LOC: CR 11:30
PROVIDERS: PCP Internal Medicine
DX: I25.10 Atherosclerotic heart disease of native coronary artery without angina pectoris (principal)
CPT/HCPCS: 93798

== ENCOUNTER → 2023-10-02 | Outpatient (CLI) | payer MEDICAID, SELFPAY ==
[2023-09-24 10:38] VITALS: BMI 27.6
[2023-10-02 10:28] LABS: Absolute Lymphocyte Count 2.02 X10^3/uL (0.83-4.51); Absolute Neutrophil Count 8.6 X10^3/uL (2.0-7.7); Basophil# 0.14 X10^3/uL; Basophil% 1.2 % (0-1); Eosinophil# 0.28 X10^3/uL; Eosinophils% 2.3 % (0-5); Hematocrit 38.3 % (37-47); Lymphocyte # 2.02 X10^3/ul (0.83-4.51); Lymphocyte % 16.8 % (19-41); Mean Corp Hgb Conc 31.3 g/dL (32-36); Mean Corpuscular Hgb 26.8 pg (27.0-32.0); Mean Corpuscular Volume 85.5 fL (81-99); Mean Platelet Vol. 10.3 fl (6.2-12.0); Monocyte# 0.87 X10^3/uL; Monocyte% 7.3 % (0-10); NRBC Flagged by Analyzer 0 % (0-5); Neutrophil # 8.64 X10^3/uL (2.7-7.7); Platelet Count 258 K/mm3 (150-450); RBC Distribution Width CV 13.4 % (11.6-14.6); RBC Distribution Width SD 41.5 fl (35.1-43.9); Red Blood Count 4.48 M/mm3 (4.2-5.4)
[2023-10-02 10:47] LABS: Hemoglobin A1c 7.2 % (3.8-5.6)
[2023-10-02 10:58] LABS: ALB/GLOB Ratio 0.9 RATIO (0.9-2.4); AST(SGOT) 14 U/L (15-37); Alanine Aminotransfer ALT/SGPT 21 U/L (13-56); Albumin, Serum 3.5 g/dL (3.2-5.0); Alkaline Phosphatase 91 U/L (45-117); Anion Gap 11 (5-15); BUN 28 mg/dL (7-18); BUN/Creat Ratio 18.2 RATIO (10-20); Calcium,Total 9.8 mg/dL (8.5-10.1); Chloride 106 mmol/L (98-107); Creatinine, Serum 1.54 mg/dL (0.55-1.02); EST Glomerular Filtration Rate 36 mL/min (>60); Est Glom Filt Rate - Afr Amer 44 mL/min (>60); Globulin 4.1 g/dL (2.2-4.2); Glucose 202 mg/dL (74-106); Magnesium 1.9 mg/dL (1.6-2.6); Potassium 4.3 mmol/L (3.5-5.1); Protein, Total 7.6 g/dL (6.4-8.2); Sodium Level 139 mmol/L (136-145); Thyroid Stim Hormone (TSH) 1.62 uIU/mL (0.358-3.74)
== END | disposition home or self-care (01) ==
LOC: MTLAB 07:37
PROVIDERS: PCP Internal Medicine; Referring Provider Internal Medicine; Visit Provider Internal Medicine
DX: I12.9 Hypertensive chronic kidney disease with stage 1 through stage 4 chronic kidney disease, or unspecified chronic kidney disease (principal); E11.9 Type 2 diabetes mellitus without complications; N18.31 Chronic kidney disease, stage 3a; I25.10 Atherosclerotic heart disease of native coronary artery without angina pectoris; M85.80 Other specified disorders of bone density and structure, unspecified site
CPT/HCPCS: 36415; 80053; 83036; 83735; 84443; 85025

== ENCOUNTER 2023-11-12 11:30 | Outpatient (RCR) | payer MEDICAID, SELFPAY ==
[2023-09-24 10:38] VITALS: BMI 27.6
[2023-10-13 00:17] VITALS: BP 128/52
--- NOTE | 2023-10-24 08:03 | PCM.CR.ITP ---
Nutrition - Initial Assessment Weight Mgt (Other Care) Height: 5 ft 8 in Weight:: 189 lb BMI: 28.7 Psychosocial - Initial Assess Target Goals Target Goals Patient Health Questionnaire PHQ-9 Screening 60-Day Re-eval Assessment: 1. Little interest or pleasure in doing things: Several days 2. Feeling down, depressed, or hopeless: Several days 3. Trouble falling or staying asleep, or sleeping too much: More than half the days 4. Feeling tired or having little energy: Nearly every day 5. Poor appetite or overeating: More than half the days 6. Feeling bad about yourself -- or that you are a failure or have let yourself or your family down: More than half the days 7. Trouble concentrating on things, such as reading the newspaper or watching television: Not at all 8. Moving or speaking so slowly that other people could have noticed. Or the opposite - being so fidgety or restless that you have been moving around a lot more than usual: Not at all 9. Thoughts that you would be better off , or of hurting yourself in some way: Not at all How difficult have these problems made it for you to do your work, take care of things at home, or get along with other people?: Somewhat difficult Total Score: 11 Self-Efficacy 6-Item Scale 60-Day Re-eval Assessment: We would like to know how confident you are in doing certain activities. Please select your confidence level for: Fatigue Select Number: 4 Physical Discomfort or Pain Select Number: 4 Emotional Distress Select Number: 4 Other Symptoms or Health Problems Select Number: 6 Different Tasks and Activities Select Number: 5 Medication Select Number: 4 Total Score:: 4 Nutrition Survey Nutrition Survey Instructions Scoring Instructions Exercise - 60-day Assessment Visit Date of Eval: 10/24/23 Session #:: 14 Physician Prescribed Exercise Modalities: NuStep, SciFit and Lateral Biddle Frequency: 3x/week for 12 weeks [36 sessions] Intensity: 60-80% of age predicted maximum heart rate reserve Duration: 30 - 45 minutes Current METSs:: 4 Target Heart Rate:: 94-118 Current RPE:: 10-13 Maximum Excercise HR:: 71 Resting Blood Pressure: 132/48 Maximum Exercise Blood Pressure: 140/50 EKG Type: SB to SR/junctional w/BBB with occ to freq pac's Outcomes & Goals Goals:: Verbalizes understanding of THR, RPE & goal METS by session 6, Documents in home exercise log/reports 30 min aerobic 5 day/wk by DC, Demonstrates accurate pulse taking by DC and Other additional outcome/goals: see below Intervention & Plan Exercise Program Goals: Instruct on personal THR & RPE, Instruct on MET level & personal MET goal, Show patient to take own pulse /validate performance until accurate, Instruct on home exercise and Other additional plan/int 30-day Reassessments 30 day Reassessments:: Progressing Reassessment Notes & Comments:: METs explained Physical Activity Home Exercise Physical Activity - Home Exercise: Safe Exercise, Warm-up, Self-monitoring, Cool-Down, Home Exercise > 30 min Daily and Sitting Time <3 hours/daily Outcomes & Goals Outcomes/Goals: Demonstrates correct Warm-up/exercise Cool-Down (S3) if = 2.5 METs, Verbalizes symptoms of exercise intolerance by Session 3 (S3), Demonstrate safe equipment use (S3) & follows exercise prescrition (6) and Other: See below Intervention & Plan Plan/Intervention: Instruct warm-up & cool-down if exercising at > 2 METs, Instruct on symptoms of exercise intolerance & actions to take, Instruct & monitor on saf, Assess intial functional capacity & safety risk and Other See below 30-day Reassessments 30 day Reassessments:: Progressing Reassessment Notes & Comments:: cool down encouraged Nutrition - 30-Day Assessment Weight Mgt (Other Care) Height: 5 ft 8 in Weight:: 189 lb BMI: 28.7 Nutrition - 60-Day Assessment Program Goals Nutrition Program Goals Patient has diagnosis of Hyperlipidemia (ICD E78)?: Yes Visit Date of Eval: 10/24/23 Session #:: 14 Cholesterol/Lipids (Other Core Measures) Determine presence & major risk factors that modify LDL goal: Cigarette smoking, Hypertension or hypertensive medication, Low HDL cholesterol <40 mg/dL*, Family history of premature CHD in Male < 55 years: female <65 yearsFa and Age men > 45 years; women >/= 55 years Outcomes/Goals: Pt IDs own risk factors & lifestyle modifications by Session 10, Verbalizes symptoms of angina & response by session 3., Pt independently manages and Other Additional Outcomes/Goals: Intervention/Plan: Advocate for lipid panel cholesterol medication if applicable, Instruct on personal lipid levels & lipid goals/NCEP guidelines, Instruct on cholesterol and Other additional plan/int 30-day Reassessments:: Progressing Reassessment Notes & Comments:: pt to attend nutrition class Diabetes (Other Core Measures) Diabetes Type: Diagnosis Type I ICD-10 E10 Insulin dependent injection/pump?: No Non-Insulin Dependent?: No Do you monitor your blood sugar at home?: Yes Referral to Diabetic Clinic:: Yes Outcomes/Goals:: Able to state symptoms of, Able to state, Able to state and Other additional Intervention/Plan:: Instruct on, Refer to, Instruct on and Other 30-day Reassessments:: Progressing Reassessment Notes & Comments:: pt to attend nutrition class Weight Mgt (Other Care) Height: 5 ft 8 in Weight:: 189 lb BMI: 28.7 Diagnosis Overweight/Obesity BMI> 30% ICD-10 E66: No Diagnosis High BMI/Morbid Obesity BMI> 35% ICD-10 Z68: No Outcomes/Goals: Pt sets, maintains & shows weight loss goal & trend during rehab and Other additional outcomes/goals Intervention/Plan: Instruct on ideal BMI & set weight loss goal w/patient, Assist pt to ID & incorporate diet changes for weight loss by S9, Refer to Structured Weight Loss program as appropriate, Encourage goal of using 250-300dcal per session for weight loss and Other additional plan/interventions 30 day Reassessments:: Progressing Reassessment Notes & Comments:: pt to attend nutrition class Healthy Eating Habits Will attend diet classes:: Yes Outcomes/Goals:: Consume diet rich in vegs,fruits,whole grain/high fiber,fish,lean meat, Limit sat/trans fats,cholesterol & added salts & sugars and Other additional outcome/goals: Intervention/Plan:: Assess current eating habits and Other Additional plan/interventions 30-day Reassessments:: Progressing Reassessment Notes & Comments:: pt to attend nutrition class Education Gave educational materials for:: Signs & symptoms of hypoglycemia, Signs & symptoms of hyperglycemia, Relate diabetes to coronary artery disease and Healthy eating Core - 60-Day Assessment Visit Date of Eval: 10/24/23 Session #:: 14 Medication Compliance Preventative Medication(s):: Aspirin, DAYAN inhibitor, Clopidogrel/P2Y12 inhibit and Statin/lipid H/O mental health issues: depression, anxiety, or addiction?: Yes Doesn?t believe in the benefits of treatment?: No Believes medications are unnecessary or harmful?: No Has a concern about medication side effects?: No Expresses concern over the cost of medications?: No Outcomes/Goals: Verbalizes medications,desired effect & common side effects @ DC, Pt self-reports following medication regimen, Keeps card in wallet w/medications listed by DC and Other additional outcome/goals: Interventions/plans: Instruct on medication effects & side effects, Review medication list w/patient every two weeks, Instruct importance of taking meds as ordered & assist problem solving and Other additional 30-day Reassessments:: Progressing Reassessment Notes & Comments:: pt encouraged to take her meds Tobacco Use Tobacco Use: Non-smoker Hypertension Hypertension Diagnosis:: Hypertension ICD-10 I10 Resting Blood Pressure:: 132/48 [place] [employer] Hypertension Guidelines Peak Exercise Blood Pressure:: 140/50 Outcomes/Goals: Able to verbalize/achieve optimal blood pressure <130/80, Incorporates diet changes & exercise for blood pressure control by DC and Other additional outcomes/goals Interventions/plan: Instruct on optimal blood pressure, hypertension & medications, Instruct on effects of sodium, alcohol, stress, exercise &hypertension and Other additional plan/interventions 30 day Reassessments:: Progressing Reassessment Notes & Comments:: pt encouraged to take her meds Tobacco Cessation Referral Smoking Cessation Referral:: No Individual Education/Counseling:: No Education Schedule Given:: Yes Psychosocial - 30-Day Assess Target Goals Target Goals Outcomes/Goals: See list Psychosocial Outcomes/Goals:: ID's personal stressors & 2 strategies to manage stress by discharge and Other Additional outcome/goals: Psychosocial - 60-Day Assess VIsit Date of Eval: 10/24/23 Session #:: 14 History of previous Mental disease:: Yes History of Emotional Disorders: Anxious Target Goals Target Goals Outcomes/Goals: See list Psychosocial Outcomes/Goals:: ID's personal stressors & 2 strategies to manage stress by discharge and Other Additional outcome/goals: Intervention/Plan: See List Interventions/Plan:: Assess stressors,coping strategies & signs of derpression on admission, Instruct/assist pt to develop coping & personal stress Mgt strategies, Refer to Behavioral Health if appropriate, Refer to Physician if appropriate, Instruct patient to recognize signs & symptoms of depression, Instruct patient to recog and Other additional plan/intervention 30-day Reassessments: 30 day Reassessments:: Progressing Reassessment Notes & Comments:: pt is doing well Psychosocial - 90-Day Assess Target Goals Target Goals Psychosocial - Final Assessmen Target Goals Target Goals Nutrition - 90-Day Assessment Weight Mgt (Other Care) Height: 5 ft 8 in Weight:: 189 lb BMI: 28.7 Nutrition - Final Assessment Weight Mgt (Other Care) Height: 5 ft 8 in Weight:: 189 lb BMI: 28.7
[2023-10-24 08:16] VITALS: BP 132/48; BMI 28.7
== END 2023-11-12 23:59 ==
LOC: CR 11:30
PROVIDERS: PCP Internal Medicine
DX: I25.10 Atherosclerotic heart disease of native coronary artery without angina pectoris (principal); I20.9 Angina pectoris, unspecified
CPT/HCPCS: 93798

== ENCOUNTER 2023-11-27 06:12 | Day surgery (SDC) | payer MEDICAID, SELFPAY ==
[2023-10-24 08:16] VITALS: BMI 28.7
[2023-11-24 08:48] VITALS: BMI 28.5
--- OUTSIDE RECORDS SUMMARY | 2023-11-27 06:18 | XMS RPT_ITS | CCD ---
Author Name Unknown Address [address] [facility] [address] [place] [address] Organization [facility] Care Team Providers Care Latex Spooler Name Role Phone Unavailable Primary Care Provider UnavailCuba Burnette MD Unavailable Cristel Valenzuela MD Primary Care Provider Unavailable Primary Care Provider UnavailCristel Wong Primary Care Provider Cristel Valenzuela Primary Care Provider Cristel Valenzuela Unavailable Patrick Wu MD Unavailable Cuba Alvares MD Unavailable PROVIDER, UNKNOWN Admitting Unavailable PATRICK WU Referring Unavailable PROVIDER, UNKNOWN Attending Unavailable PROVIDER, UNKNOWN Attending Unavailable PROVIDER, UNKNOWN Admitting Unavailable PATRICK WU Referring Unavailable PROVIDER, UNKNOWN Attending Unavailable PROVIDER, UNKNOWN Admitting Unavailable PATRICK WU Referring Unavailable PROVIDER, UNKNOWN Admitting Unavailable PROVIDER, UNKNOWN Attending Unavailable PROVIDER, UNKNOWN Attending Unavailable PROVIDER, UNKNOWN Admitting Unavailable PROVIDER, UNKNOWN Attending Unavailable PROVIDER, UNKNOWN Admitting Unavailable SATISH SANTOS Attending Unavailable CRISTEL VALENZUELA Primary Care Unavailable BERTHA PATRICIO Attending Unavailable BIANCACRISTEL Primary Care Unavailable BERTHA PATRICIO Attending Unavailable CRISTEL VALENZUELA Primary Care Unavailable SATISH SANTOS Admitting Unavailable SATISH SANTSO Attending Unavailable SATISH SANTOS Referring Unavailable BIANCACRISTEL Primary Care Unavailable SATISH SANTOS Attending Unavailable BIANCA, CRISTEL Primary Care Unavailable SINTIA BERTHA Attending Unavailable BIANCA, CRISTEL Primary Care Unavailable CRISTEL VALENZUELA Primary Care Unavailable ELIECER VASQUEZ Referring Unavailable CRISTEL VALENZUELA Primary Care Unavailable GHANY, AHMED Referring Unavailable GUILLE ALVARESMED Attending Unavailable CUBA ALVARES Attending Unavailable DANIELA FLOOD Referring Unavailable CRISTEL VALENZUELA Primary Care Unavailable HANDY BATES Referring Unavailable HANDY BATES Attending Unavailable CRISTEL VALENZUELA Primary Care Unavailable HANDY BATES Referring Unavailable CRISTEL VALENZUELA Primary Care Unavailable ELIECER VASQUEZ Referring Unavailable HANDY BATES Attending Unavailable CRISTEL VALENZUELA Primary Care Unavailable ELIECER VASQUEZ Referring Unavailable CRISTEL VALENZUELA Primary Care Unavailable ELIECER VASQUEZ Referring Unavailable CRISTEL VALENZUELA Primary Care Unavailable CUBA ALVARES Referring Unavailable ELIECER VASQUEZ Attending Unavailable Allergies Allergy Classification Reported Allergen(s) Allergy Type Date of Onset Reaction(s) Facility (20 sources) Acetaminophen / oxyCODONE; Translations: [OXYCODONE-ACETAMINOP HEN] Drug Allergy Itching [facility] (9 sources) Adhesive agent; Translations: [ADHESIVE] Drug Allergy Rash [facility] (10 sources) hydroCHLOROthiazide; Translations: [HYDROCHLOROTHIAZIDE] Drug Allergy Unknown [facility] (20 sources) HYDROcodone; Translations: [HYDROCODONE] Drug Allergy Itching [facility] (9 sources) Iodine; Translations: [IODINE] Drug Allergy Rash, Shortness of Breath [facility] (20 sources) Iron; Translations: [IRON] Drug Allergy Diarrhea [facility] (20 sources) levoFLOXacin; Translations: [LEVOFLOXACIN] Drug Allergy Shortness of Breath, Anaphylactic Shock, Difficulty Breathing [facility] (10 sources) liraglutide; Translations: [LIRAGLUTIDE] Drug Allergy GI Upset, Vomiting [facility] (20 sources) Sulfonamides (Antibiotic); Translations: [SULFA (SULFONAMIDE ANTIBIOTICS)] Drug Allergy Rash [facility] (9 sources) Methylprednisone; Translations: [METHYLPREDNISONE] Drug Allergy Mental Status Change [facility] (20 sources) hydroCHLOROthiazide Drug Allergy Other [facility] (20 sources) liraglutide Drug Allergy 08-02-2 022 Vomiting [facility] (20 sources) methylPREDNISolone; Translations: [METHYLPREDNISOLONE] Drug Allergy Anaphylactic Shock [facility] (20 sources) Iodides; Translations: [IODIDES] Drug Intolerance Anaphylactic Shock, Rash, Difficulty Breathing [facility] (1 source) Other Propensity to adverse reactions [facility] (13 sources) Acetaminophen / oxyCODONE; Translations: [PERCOCET] Drug Allergy Other [facility] (13 sources) Bandage Tape; Translations: [BANDAGE TAPE] Propensity to adverse reactions Itching, Rash [facility] (13 sources) Iodinated Contrast Media; Translations: [IODINATED CONTRAST MEDIA] Propensity to adverse reactions to drug Anaphylactic Shock [facility] (1 source) Sulfonamides (Antibiotic); Translations: [SULFA ANTIBIOTICS] Propensity to adverse reactions to drug (disorder) [facility] Repository Medications Current Medications Medication Drug Class(es) Dates Sig (Normalized) Sig (Original) acebutolol 200 mg oral capsule (12 sources) beta-Adrenergic Kleber take 1 capsule by mouth twice daily acebutolol (SECTRAL) 200 MG capsule Take 1 Capsule by mouth 2 times daily. 0 Active acetaminophen 300 mg / butalbital 50 mg / caffeine 40 mg oral capsule (20 sources) Barbiturate, Central Nervous System Stimulant, Methylxanthine Start: 02-14-2022 take 1 capsule by mouth three times daily as needed Butalbital-APAP- Caffeine (Fioricet) 50-300-40 MG CAPS Take 1 capsule 3 times a day by oral route as needed. 0 02/14/2022 Active Completed/Discontinued Medications Medication Drug Class(es) Dates Sig (Normalized) Sig (Original) Acetaminophen (9 sources) Start: 06-05-2023 End: 06-06-2023 take 1 tablet by mouth every six hours as needed for pain and fever acetaminophen (Tylenol) tablet 650 mg Problems Active Problems Problem Classification Problem Date Documented Da te Episodic/Chronic Cancer of colon (20 sources) Malignant tumor of ascending colon; Translations: [Malignant neoplasm of ascending colon] Onset: Chronic Chronic kidney disease (20 sources) Chronic kidney disease; Translations: [Chronic kidney disease, unspecified] Onset: 0 02-24-2023 Chronic Coronary atherosclerosis and other heart disease (20 sources) Coronary arteriosclerosis; Translations: [Atherosclerotic heart disease of burns paiute coronary artery without angina pectoris] Onset: 3 Chronic Diabetes mellitus without complication (12 sources) Diabetes mellitus; Translations: [Type 2 diabetes mellitus without complications] Onset: 0 06-09-2023 Chronic Esophageal disorders (12 sources) Gastroesophageal reflux disease; Translations: [Gastro-esophageal reflux disease without esophagitis] Onset: 0 06-09-2023 Chronic Essential hypertension (20 sources) Essential hypertension; Translations: [Essential (primary) hypertension] Onset: 0 Chronic Headache; including migraine (12 sources) Migraine; Translations: [Migraine, unspecified, not intractable, without status migrainosus] Onset: 0 06-09-2023 Chronic Mood disorders (12 sources) Depressive disorder; Translations: [Depression] Onset: 3 06-09-2023 Chronic Other aftercare (1 source) nursing home systemic steroid user; Translations: [nursing home (current) use of systemic steroids] 09-05-2023 Episodic Other bone disease and musculoskeletal deformities (1 source) Osteopenia with high fracture risk; Translations: [Other specified disorders of bone density and structure, unspecified site] 09-05-2023 Episodic Other bone disease and musculoskeletal deformities (1 source) Other specified disorders of bone density and structure, multiple sites; Translations: [Other specified disorders of bone density and structure, multiple sites] Onset: 3 Episodic Other circulatory disease (12 sources) Erythromelalgia; Translations: [Erythromelalgia] Onset: 1 06-09-2023 Chronic Other gastrointestinal disorders (12 sources) Irritable bowel syndrome; Translations: [Irritable bowel syndrome without diarrhea] Onset: 0 06-09-2023 Chronic Other nervous system disorders (12 sources) Small fiber neuropathy; Translations: [Polyneuropathy, unspecified] Onset: 0 06-09-2023 Chronic Residual codes; unclassified (2 sources) Menopause present; Translations: [Asymptomatic menopausal state] 06-09-2023 Episodic Residual codes; unclassified (1 source) Asymptomatic menopausal state; Translations: [Asymptomatic menopausal state] Onset: Episodic Rheumatoid arthritis and related disease (17 sources) Rheumatoid arthritis of multiple joints; Translations: [Rheumatoid arthritis, unspecified] Onset: 0 06-09-2023 Chronic Thyroid disorders (12 sources) Hypothyroidism; Translations: [Hypothyroidism, unspecified] Onset: 0 06-09-2023 Chronic Past or Other Problems Problem Classification Problem Date Documented Da te Episodic/Chronic Allergic reactions (12 sources) Eczema; Translations: [Dermatitis, unspecified] Onset: 06-09-2023 06-09-2023 Episodic Fracture of lower limb (12 sources) Closed fracture of fibula; Translations: [Unspecified fracture of shaft of unspecified fibula, initial encounter for closed fracture] Onset: 06-09-2023 06-09-2023 Episodic Nonspecific chest pain (20 sources) Chest discomfort; Translations: [Other chest pain] Onset: 06-05-2023 06-05-2023 Episodic Other bone disease and musculoskeletal deformities (14 sources) Osteopenia; Translations: [Other specified disorders of bone density and structure, multiple sites] Onset: 12-13-2019 06-09-2023 Episodic Other connective tissue disease (13 sources) Fibromyalgia; Translations: [Fibromyalgia] Onset: 12-13-2019 06-09-2023 Episodic Results Test Name Value Interpretation Reference Range Facil ity Vital Signs Date Time Vital Sign Value Performing Clinician Faci lity 09-17-2023 13:21-0500 Body height 172.7 cm Satish Santos MD Work Phone: [employer] 09-17-2023 13:21-0500 Body mass index (BMI) [Ratio] 28.34 kg/m2 Satish Santos MD Work Phone: [employer] 09-17-2023 13:21-0500 Body weight 84.55 kg Satish Santos MD Work Phone: [employer] 09-17-2023 13:21-0500 Diastolic blood pressure 60 mm[Hg] Satish Santos MD Work Phone: [employer] 09-17-2023 13:21-0500 Heart rate 65 /min Satish Santos MD Work Phone: [facility] [employer] 09-17-2023 13:21-0500 Respiratory rate 16 /min Satish Santos MD Work Phone: [facility] [employer] 09-17-2023 13:21-0500 SaO2% (BldA) [Mass fraction] 97 % Satish Santos MD Work Phone: [facility] [employer] 09-17-2023 13:21-0500 Systolic blood pressure 120 mm[Hg] Satish Santos MD Work Phone: [facility] [employer] 09-05-2023 10:18-0500 Body temperature 97.3 [degF] Patrick [facility] MD [facility] 09-05-2023 10:18-0500 Body weight 85.28 kg Patrick Wu MD [facility] 09-05-2023 10:18-0500 Diastolic blood pressure 59 mm[Hg] Patrick [facility] MD [facility]: [facility] 09-05-2023 10:18-0500 Heart rate 55 /min Patrick Wu MD [facility] 09-05-2023 10:18-0500 Respiratory rate 16 /min Patrick Wu MD [facility] 09-05-2023 10:18-0500 Systolic blood pressure 136 mm[Hg] Patrick Wu MD Work [facility]: [facility] 07-16-2023 13:22-0400 Body height 172.7 cm Bertha Sintia PA-C Work Phone: [employer] 07-16-2023 13:22-0400 Body mass index (BMI) [Ratio] 28.19 kg/m2 Bertha Sintia PA-C Work Phone: [employer] 07-16-2023 13:220400 Body weight 84.1 kg Bertha Sintia PA-C Work Phone: [facility] [employer] 07-16-2023 13:22-0400 Diastolic blood pressure 60 mm[Hg] Bertha Sintia PA-C Work Phone: [facility] [employer] 07-16-2023 13:22-0400 Heart rate 51 /min Bertha Sintia PA-C Work Phone: [facility] [employer] 07-16-2023 13:22-0400 Respiratory rate 16 /min Bertha Sintia PA-C Work Phone: [facility] [employer] 07-16-2023 13:22-0400 SaO2% (BldA) [Mass fraction] 99 % Bertha Sintia PA-C Work Phone: [facility] [employer] 07-16-2023 13:22-0400 Systolic blood pressure 110 mm[Hg] Bertha Sintia PA-C Work Phone: [facility] 06-30-2023 13:34-0400 Body temperature 97.39 [degF] Handy Bates MD Work Phone: [facility] 06-30-2023 13:34-0400 Body weight 83.92 kg Handy Bates MD Work Phone: [facility] 06-30-2023 13:34-0400 Diastolic blood pressure 64 mm[Hg] Handy Bates MD Work Phone: [facility] 06-30-2023 13:34-0400 Heart rate 54 /min Handy Bates MD Work Phone: [facility] 06-30-2023 13:34-0400 SaO2% (BldA) [Mass fraction] 97 % Handy Bates MD Work Phone: [facility] 06-30-2023 13:34-0400 Systolic blood pressure 125 mm[Hg] Handy Bates MD Work Phone: [facility] 06-25-2023 09:29-0400 Body height 172.7 cm Bertha Sintia PA-C Work Phone: [facility] [employer] 06-25-2023 09:29-0400 Body mass index (BMI) [Ratio] 28.01 kg/m2 Bertha Sintia PA-C Work Phone: [employer] 06-25-2023 09:29-0400 Body weight 83.55 kg Bertha Sintia PA-C Work Phone: [facility] [employer] 06-25-2023 09:29-0400 Diastolic blood pressure 70 mm[Hg] Bertha Sintia PA-C Work Phone: [facility] [employer] 06-25-2023 09:29-0400 Heart rate 56 /min Bertha Sintia PA-C Work Phone: [facility] [employer] 06-25-2023 09:29-0400 Respiratory rate 16 /min Bertha Sintia PA-C Work Phone: [facility] [employer] 06-25-2023 09:29-0400 SaO2% (BldA) [Mass fraction] 96 % Bertha Sintia PA-C Work Phone: [facility] [employer] 06-25-2023 09:29-0400 Systolic blood pressure 120 mm[Hg] Bertha Sintia PA-C Work Phone: [facility] [employer] 06-09-2023 12:58-0400 Body temperature 97.59 [degF] Patrick Wu MD Work [facility]: [facility] 06-09-2023 12:58-0400 Diastolic blood pressure 57 mm[Hg] Patrick Wu MD Work Phone: [facility] 06-09-2023 12:58-0400 Heart rate 56 /min Patrick Wu MD Work Phone: [facility] 06-09-2023 12:58-0400 Respiratory rate 20 /min Patrick Wu MD Work Phone: [facility] 06-09-2023 12:58-0400 Systolic blood pressure 114 mm[Hg] Patrick Wu MD [facility] 06-06-2023 10:07-0400 Body temperature 97.81 [degF] Satish Santos MD Work Phone: [facility] [employer] 06-06-2023 10:07-0400 Diastolic blood pressure 73 mm[Hg] Satish Santos MD Work Phone: [facility] [employer] 06-06-2023 10:07-0400 Heart rate 76 /min Satish Santos MD Work Phone: [facility] [employer] 06-06-2023 10:07-0400 Respiratory rate 18 /min Satish Santos MD Work Phone: [facility] [employer] 06-06-2023 10:07-0400 SaO2% (BldA) [Mass fraction] 95 % Satish Santos MD Work Phone: [facility] [employer] 06-06-2023 10:07-0400 Systolic blood pressure 156 mm[Hg] Satish Santos MD Work Phone: [facility] [employer] 06-05-2023 11:46-0400 Body height 172.7 cm Satish Santos MD Work Phone: [facility] [employer] 06-05-2023 11:46-0400 Body mass index (BMI) [Ratio] 27.76 kg/m2 Satish Santos MD Work Phone: [facility] [employer] 06-05-2023 11:46-0400 Body weight 82.83 kg Satish Santos MD Work Phone: [facility] [employer] 06-05-2023 11:46-0400 Diastolic blood pressure 68 mm[Hg] Satish Santos MD Work Phone: [facility] [employer] 06-05-2023 11:46-0400 Heart rate 54 /min Satish Santos MD Work Phone: [facility] [employer] 06-05-2023 11:46-0400 SaO2% (BldA) [Mass fraction] 99 % Satish Santos MD Work Phone: [facility] [employer] 06-05-2023 11:46-0400 Systolic blood pressure 128 mm[Hg] Satish Santos MD Work Phone: [facility] [employer] 04-04-2023 12:52-0400 Body temperature 97.81 [degF] Eliecer Vasquez MD Work Phone: [facility] 04-04-2023 12:52-0400 Body weight 83.23 kg Eliecer Vasquez MD Work Phone: [facility] 04-04-2023 12:52-0400 Diastolic blood pressure 70 mm[Hg] Eliecer Vasquez MD Work Phone: [facility] 04-04-2023 12:52-0400 Heart rate 64 /min Eliecer Vasquez MD Work Phone: [facility] 04-04-2023 12:52-0400 SaO2% (BldA) [Mass fraction] 95 % Eliecer Vasquez MD Work Phone: [facility] 04-04-2023 12:52-0400 Systolic blood pressure 140 mm[Hg] Eliecer Vasquez MD Work Phone: [facility] 02-24-2023 10:41-0400 Body height 172.7 cm Bertha Sintia PA-C Work Phone: [facility] 02-24-2023 10:41-0400 Body mass index (BMI) [Ratio] 27.67 kg/m2 Bertha Sintia PA-C Work Phone: [facility] 02-24-2023 10:41-0400 Body weight 82.56 kg Bertha Sintia PA-C Work Phone: [facility] 02-24-2023 10:41-0400 Diastolic blood pressure 60 mm[Hg] Bertha Sintia PA-C Work Phone: [facility] 02-24-2023 10:41-0400 Heart rate 56 /min Bertha Sintia PA-C Work Phone: [facility] [employer] 02-24-2023 10:41-0400 Respiratory rate 16 /min Bertha Sintia PA-C Work Phone: [facility] 02-24-2023 10:41-0400 SaO2% (BldA) [Mass fraction] 99 % Bertha Sintia PA-C Work Phone: [facility] 02-24-2023 10:41-0400 Systolic blood pressure 120 mm[Hg] Bertha CARBAJAL-Natalee Work Phone: [facility] 01-01-2023 14:32-0400 Body temperature 97.59 [degF] Cuba Alvares MD Work Phone: [facility] 01-01-2023 14:32-0400 Body weight 83.69 kg Cuba Alvares MD Work Phone: [facility] 01-01-2023 14:32-0400 Diastolic blood pressure 66 mm[Hg] Cuba Alvares MD Work Phone: [facility] 01-01-2023 14:32-0400 Heart rate 63 /min Cuba Alvares MD Work Phone: [facility] 01-01-2023 14:32-0400 Systolic blood pressure 140 mm[Hg] Cuba Alvares MD Work Phone: [facility] 12-18-2022 12:58-0500 Body height 172.7 cm Cuba Alvares MD Work Phone: [facility] 12-18-2022 12:58-0500 Body temperature 97.3 [degF] Cuba Alvares MD Work Phone: [facility] 12-18-2022 12:58-0500 Body weight 81.42 kg Cuba Alvares MD Work Phone: [facility] 12-18-2022 12:58-0500 Diastolic blood pressure 62 mm[Hg] Cuba Alvares MD Work Phone: [facility] 12-18-2022 12:58-0500 Heart rate 84 /min Cuba Alvares MD Work Phone: [facility] 12-18-2022 12:58-0500 Systolic blood pressure 126 mm[Hg] Cuba Alvares MD Work Phone: [facility] Encounters Encounter Date Encounter Type Care Provider Facility Start: 11-16-2023 Letter encounter Patrick jimenez MD Work Phone: [facility] Start: 10-29-2023 End: 10-29-2023 ambulatory CRISTEL VALENZUELA Facility:[facility] Start: 10-20-2023 End: 10-21-2023 ambulatory CRISTEL VALENZUELA Facility:[facility] Start: 09-17-2023 End: 09-17-2023 ambulatory SATISH SANTOS [facility] Start: 09-17-2023 End: 09-17-2023 Office outpatient visit 25 minutes Satish Santos MD Work Phone: [facility] Procedures Date Procedure Procedure Detail Performing Clinician Start: 08-20-2023 Dxa bone density lucinda dy 1/> sites axial skel Patrick Wu MD Work Phone: Start: 08-13-2023 Lipid 1996 panel - S delmi or Plasma Talisha Cardozo [employer] - [employer]CEMENT OFFICER Work Phone: Start: 07-16-2023 Ecg routine ecg w/le ast 12 lds w/i&r Satish Santos MD Work Phone: Start: 06-25-2023 Ecg routine ecg w/le ast 12 lds w/i&r Satish Santos MD Work Phone: Start: 06-09-2023 C-reactive protein Jennifer Wu MD Work Phone: Start: 06-09-2023 Sedimentation rate r bc non-automated Patrick Wu MD Work Phone: Start: 06-09-2023 End: 06-09-2023 Radex foot complete minimum 3 views Patrick Wu MD Work Phone: Start: 06-06-2023 Cardiac catheterizat ion study Tyrel Miles MD Work Phone: Start: 06-06-2023 Lipid panel Talisha norman [employer] - [employer]CEMENT OFFICER Work Phone: Start: 06-06-2023 Lipid 1996 panel - S delmi or Plasma Satish Santos MD Work Phone: Start: 06-06-2023 Ecg routine ecg w/le ast 12 lds trcg only w/o i&r Talisha Cardozo [employer] - [employer]ARE E[employer]CEMENT OFFICER Work Phone: Start: 06-05-2023 Assay of troponin quantitative Talisha Cardozo [employer] - [employer] E[employer]CEMENT OFFICER Work Phone: Start: 06-05-2023 Assay of troponin quantitative Talisha Cardozo [employer] - [employer]CEMENT OFFICER Work Phone: Start: 06-05-2023 Comprehensive metabo lic panel Talisha Cardozo [employer] - FARE ENF[employer]CEMENT OFFICER Work Phone: Start: 06-05-2023 Ecg routine ecg w/le ast 12 lds w/i&r Satish Santos MD Work Phone: Start: 04-24-2023 Ct abdomen & pelvis w/o contrast material Eliecer Vasquez MD Work Phone: Start: 04-24-2023 Ct thorax w/o contra st material Eliecer Vasquez MD Work Phone: Start: 02-24-2023 Ecg routine ecg w/le ast 12 lds w/i&r Satish Santos MD Work Phone: Start: 12-06-2022 Colonoscopy Bertha Spi ros PA-C Work Phone: Start: 09-11-2022 Mammography Bertha Spi ros PA-C Work Phone: Start: 03-02-2022 Cardiac catheterization Start: 03-02-2022 Ecg routine ecg w/le ast 12 lds i&r only Plan of Treatment Date Care Activity Detail Author Start: 12-06-2032 Screening for malignant neoplasm of colon [facility] Start: 06-06-2028 Cholesterol [Mass/volume] in Serum or Plasma Cholesterol [facility] Start: 06-06-2028 Lipid 1996 panel - Serum or Plasma Lipid Screening [facility] Start: 06-23-2026 Diabetes Screening Diabetes Screening [facility] Start: 03-31-2026 DIABETES SCREEN DIABETES SCREEN [facility] Start: 03-05-2025 DIABETES SCREEN DIABETES SCREEN [facility] Start: 09-22-2024 End: 09-22-2024 Patient encounter procedure 09/22/2024 1:00 PM EST Office Visit [facility] [address] [place] [id number] Satish Santos MD [address] [place] [address] [facility] Start: 08-27-2024 Creatinine measurement Basic Metabolic Panel [facility] Start: 08-13-2024 Creatinine measurement Basic Metabolic Panel [facility] Start: 08-13-2024 Lipid panel [facility] Start: 06-06-2024 Lipid panel [facility] Start: 06-05-2024 Creatinine measurement Basic Metabolic Panel [facility] Start: 06-05-2024 Hemoglobin A1c measurement Diabetes: Hemoglobin A1C [facility] Start: 01-13-2024 Hemoglobin A1c measurement Hemoglobin A1C [facility] Start: 01-05-2024 End: 01-05-2024 Patient encounter procedure 01/05/2024 10:40 AM EDT Office Visit [facility] [address] [place], [place] [id number] Patrick Wu MD [address] [place], [place] [id number] [facility] Start: 12-06-2023 Hemoglobin A1c measurement Hemoglobin A1C [facility] Start: 10-22-2023 End: 12-22-2023 Carcinoembryonic Ag [Mass/volume] in Serum or Plasma [facility] BLD Lab Routine Malignant neoplasm of ascending colon (HCC) Expected: 10/22/2023 (Approximate), Expires: 12/22/2023 [facility] Work Phone: Immunizations Immunization Date Immunization Notes Care Provider Fa cility 07-14-2023 Hemoglobin A1C Phe [facility] 06-05-2023 Hemoglobin A1C Patrick jimenez MD Work Phone: [facility] Payers Date Payer Category Payer Medicaid [id number] 2022 Medicaid [id number] 1960 Unknown [id number] 1960 Unknown [id number] 2.16. [id number] 1960 Unknown [id number] 2.16. [id number] 1960 Unknown [id number] 2.16. [id number] 1960 Unknown [id number] 2.16. [id number] 1960 Unknown [id number] 2.. [id number] Social History Date Type Detail Facility Tobacco smoking stat [facility] Tobacco smoking consumption unknown [facility] Start: 1960 Sex Assigned At Not on file [facility] Start: 08-15-2022 End: 12-18-2022 Tobacco smoking status NEIS Ex-smoker [facility] End: 10-13-1992 History of tobacco use Current smoker [facility] End: 10-13-1992 History of tobacco use Cigarette Smoker [facility] Start: 12-18-2022 End: 06-05-2023 Cigarettes smoked current (pack per day) - Reported 1 [facility] Start: 12-18-2022 End: 09-05-2023 Tobacco use and exposure Smokeless tobacco non-user [facility] Start: 02-24-2023 End: 09-17-2023 Alcohol intake Lifetime non-drinker (finding) [facility] Start: 1960 Sex Assigned At Female [facility] Start: 06-05-2023 End: 09-17-2023 Humiliation, Afraid, Rape, and Kick questionnaire [HARK] [facility] Within the last year , have you been afraid of your partner or ex-partner? No [facility] How often to you hav e a drink containing alcohol? Never [facility] How many standard dr inks containing alcohol do you have on a typical day? Patient does not drink [facility] Start: 05-26-2023 End: 09-13-2023 Exposure to SARS-CoV-2 (event) Not sure [facility] Start: 06-23-2023 Gender identity Identifies as female gender (finding) [facility] Start: 02-24-2023 Sexual orientation Heterosexual (maría elena sorensen) [facility] Start: 09-05-2023 Tobacco smoking stat [facility] Never smoked tobacco [facility] Clinical Notes 03-05-2022 to 10-29-2023 Satish Santos MD - 09/17/2023 1:20 PM ESTPatient Patrick Anderson MD - 09/05/2023 10:46 AM EST Note Date & Type Note Facility 10-29-2023 Note HNO ID: [id number] Author: HANDY BATES MD Service: ? Author Type: Physician Type: Progress Notes Filed: 10/29/2023 15:40 Note Text: (Elements copied from my note dated June 30, 2023, have been reviewed and updated where appropriate, and all reflect current assessment and medical decision making from today's encounter, October 29, 2023) HISTORY OF PRESENT ILLNESS: Lisbeth Craven is a 63 year old female history colon cancer found on basis of bleeding. She is on ac due to prior PR. 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 Here for follow up, CEA decreased. Scans done previously, negative. Colonoscopy planned in November 2023 CLINICAL IMPRESSION: Stage I colon cancer resected. CEA slightly elevated, do not think this is cancer related RECOMMENDATION/PLAN: 1. Colonoscopy as planned. 2. No further CEA checks for stage I colon cancer surveillance per NCCN guidelines Written and verbal health teaching given to patient, patient verbalizes understanding and agrees with treatment plan. PAST MEDICAL HISTORY Diagnosis Date Diabetes mellitus (HCC) Erythromelalgia (HCC) Fibromyalgia GERD (gastroesophageal reflux disease) Heart attack (HCC) Kidney disease Neuropathy Osteopenia Rheumatoid arthritis (HCC) PAST SURGICAL HISTORY Procedure Laterality Date APPENDECTOMY BACK SURGERY HX x 2 NECK SURGERY HX PAST SURGICAL HISTORY OF Ganglion Cyst removed from wrists AND one under left breast PAST SURGICAL HISTORY OF Heart Stent x 3 PAST SURGICAL HISTORY OF Colon Resection PAST SURGICAL HISTORY OF Tendon surgery both arms REMOVAL GALLBLADDER TONSILLECTOMY HX FAMILY HISTORY Problem Relation Age of Onset Heart Father Diabetes Father Hypertension Father Lung Cancer Father Heart Brother Heart Brother Social History Tobacco Use Smoking status: Former Packs/day: 1.00 Years: 15.00 Additional pack years: 0.00 Total pack years: 15.00 Types: Cigarettes Quit date: 1992 Years since quittin.0 Smokeless tobacco: Never Vaping Use Vaping Use: Never used Substance Use Topics Alcohol use: Not Currently Drug use: Never ALLERGIES: ALLERGIES Allergen Reactions Adhesive Rash Hydrochlorothiazide Unknown Hydrocodone Itching Iron Diarrhea Ivp Dye [Iodine] Rash, Shortness of Breath Levaquin [Levofloxa* Shortness of Breath Methylprednisone Mental Status Change Percocet [Oxycodone* Itching Sulfa (Sulfonamide * Rash Victoza [Liraglutid* GI Upset, Vomiting CURRENT OUTPATIENT MEDICATIONS: isosorbide mononitrate ER (IMDUR) 30 mg 24 hr tablet Take 30 mg by mouth once daily. levothyroxine (SYNTHROID) 88 mcg tablet Take 88 mcg by mouth once daily. predniSONE (DELTASONE) 5 mg tablet Take 2 mg by mouth once daily. clopidogrel (PLAVIX) 75 mg tablet Take 75 mg by mouth once daily. carvedilol (COREG) 3.125 mg tablet Take 3.125 mg by mouth twice daily. venlafaxine (EFFEXOR) 75 mg tablet Take 75 mg by mouth once daily. venlafaxine ER (EFFEXOR XR) 150 mg 24 hr capsule Take 150 mg by mouth once daily. glipiZIDE (GLUCOTROL) 10 mg tablet Take 10 mg by mouth twice daily. hydrOXYchloroQUINE (PLAQUENIL) 200 mg tablet Take 200 mg by mouth two times a day. amLODIPine (NORVASC) 5 mg tablet Take 10 mg by mouth once daily. vitamin b complex tab Take 1 tablet by mouth once daily. lisinopril (ZESTRIL) 5 mg tablet Take 5 mg by mouth once daily. famotidine (PEPCID) 40 mg tablet Take 40 mg by mouth once daily. BIOTIN ORAL Take 1 tablet by mouth once daily. rosuvastatin (CRESTOR) 10 mg tablet Take 20 mg by mouth daily at bedtime. ondansetron (ZOFRAN) 8 mg tablet Take 8 mg by mouth every 8 hours as needed for nausea/vomiting. hyoscyamine sulfate 0.125 mg ODT Dissolve 0.125 mg under the tongue every 6 hours as needed. valACYclovir (VALTREX) 1 gram Take one tablet by mouth as needed for fever blisters. fluticasone (FLONASE) 50 mcg/actuation nasal spray Use 1 [place] in each nostril once daily as needed. simethicone (GAS-X ORAL) Take 2 tablets by mouth as needed. loperamide HCl (IMODIUM) 2 mg tab Take 2 mg by mouth as needed. diphenhydramine HCl (BENADRYL ORAL) Take 1 tablet by mouth as needed. cetirizine (ZYRTEC) 10 mg tablet Take 10 mg by mouth once daily as needed. acetaminophen (TYLENOL) 500 mg tablet Take 500 mg by mouth every 8 hours as needed. aspirin, enteric coated (ASPIRIN, ENTERIC COATED) 81 mg EC tablet TAKE ONE TABLET BY MOUTH EVERY DAY WITH A MEAL metFORMIN (GLUCOPHAGE) 500 mg tablet Take 500 mg by mouth two times a day. empagliflozin (JARDIANCE) 25 mg tablet Take 25 mg by mouth once daily. (Patient not taking: Reported on 10/29/2023) acetaminophen 300 mg-caffeine 40 mg-butalbital 50 mg (FIORICET) per capsule Take 1 capsule by mouth every 4 hours as needed. (Patient not taking: Reported on 10/29/2023) REVIEW OF SYSTEMS: GENERAL: No fever, night sweats, weight loss or malaise. All other rev (more content not included)... [facility] 09-17-2023 History of Present illness Narrative Images from the original note were not included. [facility] [address] [facility] [address] Dept: [phone] Dept Loc: [phone] DATE of SERVICE:09/17/23 TIME of SERVICE: 1:30 PM : 1960 Chief Complaint: Chief Complaint Patient presents with 6 Month Follow-up History of PresentIllness: Lisbeth Craven is a 63 y.o. female here for routine follow-up. Her history includes Coronary artery disease, right coronary artery stenting in February 2022, follow-up cardiac catheterization May 2023 due to ongoing symptoms that were progressing. Her stents were patent. She had a chronic total occlusion of an obtuse marginal branch with collaterals. There was nothing that needed to be revascularized. Type 2 diabetes mellitus Rheumatoid arthritis Chronic kidney disease Hypertension She comes in today doing better. She benefited from cardiac rehab. She is involved in that. She has angina less than once a week. It is retrosternal. It is associated with dyspnea. It is hard for her to describe but a sense of it being heavy was the best that she could do. She could not gauge it as far as severity. Typically, it lasts less than 10 minutes. She does not typically use sublingual nitroglycerin but when she does, it seems to help. It will occur with exertion. Her primary care physician is following her renal function. A month ago her creatinine was 1.7. It sounds like they decided to stop her SGLT2 inhibitor based on that. She has a follow-up with her primary care physician to follow her renal function later this month. Past Medical History: Past Medical History: Diagnosis Date Chronic kidney disease Colon cancer (HCC) Coronary artery disease Hypertension PR (myocardial infarction) (HCC) Past Surgical History Past Surgical History: Procedure Laterality Date CARDIAC CATHETERIZATION N/A 06/06/2023 Performed by Tyrel Miles MD at [facility] Cardiac Cath/EP Lab Family History Family History Problem Relation Name Age of Onset Heart attack Father Social History Social History Tobacco Use Smoking status: Former Types: Cigarettes Substance Use Topics Alcohol use: Never Drug use: Never Allergies: Allergies Allergen Reactions Hydrochlorothiazide Cannot take capsule. Tolerates tablet Iodides Levofloxacin Liraglutide Methylprednisolone Medications: Current Outpatient Medications: amLODIPine (Norvasc) 5 MG tablet, Take 1 tablet (5 mg) by mouth daily. (Patient taking differently: Take 10 mg by mouth 2 times daily.), Disp: 90 tablet, Rfl: 3 aspirin 81 MG EC tablet, Take 1 tablet by mouth every morning., Disp: , Rfl: b complex vitamins capsule, Take 1 capsule by mouth in the morning., Disp: , Rfl: dstphjudox-haywuszdxoucn-vinjze ne 50-325-40 MG tablet, Take 1 tablet by mouth every 4 hours as needed for headaches., Disp: , Rfl: Calcium Carbonate (CALCIUM 500 PO), Take by mouth., Disp: , Rfl: carvedilol (Coreg) 3.125 MG tablet, Take 1 tablet (3.125 mg) by mouth in the morning and 1 tablet (3.125 mg) in the evening. Take with meals., Disp: 60 tablet, Rfl: 3 cetirizine (ZyrTEC) 5 MG tablet, Take 10 mg by mouth in the morning., Disp: , Rfl: clopidogrel (Plavix) 75 MG tablet, Take 75 mg by mouth in the morning., Disp: , Rfl: Euthyrox 88 MCG tablet, Take 88 mcg by mouth in the morning., Disp: , Rfl: famotidine (Pepcid) 40 MG tablet, Take 40 mg by mouth in the morning., Disp: , Rfl: fluticasone (Flonase Sensimist) 27.5 MCG/SPRAY nasal spray, Administer 2 sprays into each nostril in the morning., Disp: , Rfl: glipiZIDE (Glucotrol) 10 MG tablet, Take 10 mg by mouth in the morning and 10 mg in the evening., Disp: , Rfl: hydroxychloroquine (Plaquenil) 200 MG tablet, Take by mouth., Disp: , Rfl: hyoscyamine (Levsin) 0.125 MG SL tablet, Take 0.125 mg by mouth every 4 hours as needed for cramping., Disp: , Rfl: isosorbide mononitrate ER (Imdur) 30 MG 24 hr tablet, Take 1 tablet (30 mg) by mouth daily. Do not crush or chew., Disp: 90 tablet, Rfl: 3 lisinopril 5 MG tablet, Take 5 mg by mouth in the morning., Disp: , Rfl: loperamide (Imodium) 2 MG capsule, Take 2 mg by mouth as needed for diarrhea., Disp: , Rfl: metFORMIN (Glucophage) 500 MG tablet, , Disp: , Rfl: ondansetron ODT (Zofran-ODT) 8 MG disintegrating tablet, Take 8 mg by mouth every 8 hours as needed for nausea or vomiting., Disp: , Rfl: PREDNISONE PO, Take 2 mg by mouth daily., Disp: , Rfl: rosuvastatin (Crestor) 20 MG tablet, Take 1 tablet (20 mg) by mouth daily., Disp: 90 tablet, Rfl: 1 simethicone (Mylicon) 125 MG chewable tablet, Chew every 6 hours as needed for flatulence., Disp: , Rfl: valACYclovir (Valtrex) 1 g tablet, Take by mouth 2 times daily. PRN, Disp: , Rfl: venlafaxine (Effexor) 100 MG tablet, Take 225 mg by mouth daily., Disp: , Rfl: nitroglycerin (Nitrostat) 0.4 MG SL tablet, Place 1 tablet (0.4 mg) under the tongue every 5 minutes as needed for chest pain. Max 3 doses. If still having chest pain after 1st dose, call 911, Disp: 25 tablet, Rfl: 3 Review of Systems: Review of Systems Constitutional: Positive for fatigue. Negative for activity change, chills, diaphoresis and fever. HENT: Negative for nosebleeds and trouble swallowing. Eyes: Negative for discharge and visual disturbance. Respiratory: Negative for apnea, cough, chest tightness, shortness of breath and wheezing. Cardiovascular: Positive for chest pain. Negative for palpitations and leg swelling. Gastrointestinal: Negative for abdominal distention, abdominal pain, blood in stool, diarrhea, nausea and vomiting. Endocrine: Negative for cold intolerance and heat intolerance. Genitourinary: Negative for hematuria. Musculoskeletal: Negative for gait problem and myalgias. Skin: Negative for color change and rash. Neurological: Negative for dizziness, seizures, syncope, facial asymmetry, speech difficulty, weakness, light-headedness, numbness and headaches. Hematological: Does not bruise/bleed easily. Psychiatric/Behavioral: Negative for dysphoric mood. Physical Examination: Vitals: Vitals: 09/17/23 1321 BP: 120/60 BP Location: Left arm Patient Position: Sitting BP Cuff Size: Adult Pulse: 65 Resp: 16 SpO2: 97% Weight: 186 lb 6.4 oz (84.6 kg) Height: 5' 8 (1.727 m) Body mass index is 28.34 kg/m . Physical Exam She appears well. Her neck veins are normal. Her lungs are clear. Her heart sounds are normal. Her abdomen is soft without a liver palpable. She has no peripheral edema. Posterior tibial pulses are normal. Laboratory Tests: Lab Results Component Value Date WBC 11.3 (H) 06/05/2023 HGB 14.2 06/05/2023 HCT 44.2 06/05/2023 MCV 85.8 06/05/2023 PLT 272 06/05/2023 Lab Results Component Value Date GLUCOSE 165 (A) 08/13/2023 CALCIUM 9.0 08/13/2023 NA 140 08/13/2023 K 4.9 06/05/2023 CO2 19 (L) 06/05/2023 CL 108 (A) 08/13/2023 BUN 27 (A) 08/13/2023 CREATININE 1.70 (A) 08/13/2023 @LASTCMP@ Lab Results Component Value Date CHOL 124 08/13/2023 CHOL 170 06/06/2023 Lab Results Component Value Date TRIG 152 (A) 08/13/2023 TRIG 171 (H) 06/06/2023 Lab Results Component Value Date HDL 62 (A) 08/13/2023 HDL 47 06/06/2023 Lab Results Component Value Date LDLCALC 32 08/13/2023 No components found for: LVEF , LVEFMODE Assessment and Plan: @DIAGREFRESH@ Medical decision making Although symptomatic, anatomically her coronary disease is stable and unlikely to result in an acute coronary syndrome. Her last left ventricular ejection fraction was 50% with some inferior wall motion abnormality. I suspect that her LV function is either normal or near normal. Her blood pressure is controlled and her lipids are acceptable with an HDL of 47 and LDL of 89 on a high intensity statin. Diagnostically, sent no tests given the adjustment of medication and the plan for follow-up on her renal function with primary care. Therapeutically, made no changes. She is on a high dose of amlodipine but tolerating it and doing well. Educationally, reviewed all this with her and her mother. I will see her back in a year. I told her the main thing that will really help her is exercise. As long as she is exercising, avoiding tobacco, having blood pressures like this, and keeping the lipids under reasonable control I think that is all that we can do. documented in this encounter [facility] 09-05-2023 Instructions Patrick Wu MD - 09/05/2023 11:01 AM EST Bone medicine options 1. Bone stabilizing: actonel- every other weekly pill; tried and true, works; cheap. Can cause heart burn. Take for few years before we take a break and it keeps working; low risk of issues w jaw, needs dental check yearly to make sure no planned major jaw work (implants or extractions) 5. Bone stabilizing: prolia (twice yearly in clinic shot in the skin; works well, expensive; if stop medicine, stops working, need to denys with reclast). All lower risk of future fractures 50% documented in this encounter [facility] 09-05-2023 History of Present illness Narrative Rheumatology Note CC: RA and osteoporosis Recall: Lisbeth Craven is a 63 year old female w RA; CKD, osteopenia w high FRAX Was seeing Dr Fabien Wyman in [facility]; dx RA 2014; Pred 5mg and hcq. No nsaids bc of kidney dis. Tylenol not very helpful. Diclofenac gel not helpful. Intolerant- methotrexate; avoiding biologics bc of side effects Fibula fx- stepped off curb. Also broke other foot Accompanied by Angi mom with whom she lives HPI: No milk or cheese or yogurt or ice cream. Takes pepcid. Doing cardiac rehab. Both feet have had fracture- not clear any trauma. Pred down to 3mg for August, cutting to 2mg in September. Joints are achy, but she attributes to change in weather PM/SHx: htn, CKD III; erythromelalgia (feet modified w lifestyle); neuropathy small fiber (skin biopsy proven); cad s/p PR (3 stents); DMII; gerd; osteopenia; s/p back surgery x 2; colon cancer stage 1-2 s/p surgery; s/p ulnar transposition surgery SocialHx: no tob; no etoh; not working (disability applied but denied) FamilyHx: grandmother w RA Allergies: updated in epic ROS: all ten systems are reviewed and negative except for pertinent positive and negative stated in the HPI Physical Exam Constitutional: General: She is not in acute distress. HENT: Head: Normocephalic and atraumatic. Eyes: Conjunctiva/sclera: Conjunctivae normal. Musculoskeletal: Right elbow: Normal. Left elbow: Normal. Right wrist: Normal. Left wrist: Normal. Right hip: Normal. Left hip: Normal. Right knee: Normal. Left knee: Normal. Right ankle: No swelling. No tenderness. Right Achilles Tendon: Tenderness present. No defects. Left ankle: Normal. Right foot: Normal. Left foot: Normal. Comments: Hedimitris's and Mt's nodes Skin: General: Skin is warm and dry. Findings: No rash. Neurological: Mental Status: She is alert and oriented to person, place, and time. Gait: Gait is intact. Psychiatric: Mood and Affect: Mood and affect normal. Cognition and Memory: Memory normal. Component 06/09/2023 Rheumatoid Factor <10 CCP antibody, IgG <0.5 Labs: Media mgr: 12/05 Wbc 9.9 Hgb 8-6 (during admission) - now 14 in 06/04 Plt 355 Inr 1.1 Cr 1.0- 1.33 in 06/04 A1c 5.9 Tibc 3.26 wnl Ferritin 139 (wnl) Iron 27 (L) Lfts ok except albumin 2.8 Tsh 0.67 wnl Assessment/Plan: Lisbeth Craven is a 63 year old female with reported rheumatoid arthritis; hand osteoarthritis # remote seronegative RA- stable -films are okay and without damage -continue plaquenil 400mg daily; she has had eye check this year; discussed risks of duration and with her CKD; may need to taper in the future -continue tapering steroids off completely #osteopenia, with high FRAX- complicated by CKD and steroid use -we discussed risks of fracture with loss of mobility and independence -add calcium carbonate b.i.d. given her poor calcium in her diet -discussed bisphosphonates, could use low-dose risedronate given her CKD versus denosumab -discussed risks of both medications -she is not interested in doing medications at this point because she is doing cardiac rehab and weaning steroids, does not want to add anything new in the mix #FMS- on ssri, playing a role in her pain #neuropathy- small fiber from ?- on SSRI, intolerant gabapentin #erythromelalgia- on SSRI w pcp; blanche negative #CKD 3- inc risk with hcq use, discussed importance of eye checks regularly Rtc in 3 months or prn; taper to q 6 months at next visit if stable Patrick Wu MD documented in this encounter [facility] documented in this encounter [id number] Telephone encounter Note* Telephone Encounter - Rik Harris RN - 08/26/2023 3:40 PM EST PC to patient. I talked with . He would like her to focus on cardiac rehab at this time. If not making progress or having issues will consider external counterpulsation therapy. She starts cardiac rehab on Friday, she verbalized understanding. [id number] Miscellaneous Notes* Telephone Encounter - Rik Harris RN - 08/26/2023 3:40 PM EST PC to patient. I talked with . He would like her to focus on cardiac rehab at this time. If not making progress or having issues will consider external counterpulsation therapy. She starts cardiac rehab on Friday, she verbalized understanding. * Telephone Encounter - Rik Harris RN - 08/18/2023 2:16 PM EST I called patient. I let her know Bertha CARBAJAL changed the diagnosis and this was faxed over to cardiac[facility]hab. In regards to other therapy, I did receive information packet from cardiac rehab and I placed it on 's desk. He is rounding in the hospital this week but I let her know once he reviews I will give her a call. She verbalized understanding. * Telephone Encounter - Rik Harris RN - 08/15/2023 11:22 AM EDT I called [facility]. He states the 07/16/23 diagnosis needs to be changed that she does have angina pectoris. He also states patient may qualify for external counterpulsation therapy for microvascular disease. He will be faxing me information on that. PA will be back in office on Friday. Will fax once com pleted. I called patient to give her an update as we are heading into the weekend. Should have this resolved on Friday. I will call her once faxed. She verbalized understanding. * Telephone Encounter - Alize Rosario MA - 08/15/2023 10:41 AM EDT [facility]onson at [facility] requested you call him re: getting this patient set up for rehab. # [phone] * Telephone Encounter - Alize Rosario MA - 08/14/2023 4:13 PM EDT Note faxed. * Telephone Encounter - Rik Harris RN - 08/14/2023 2:07 PM EDT Received faxed request from [facility] that they need supporting documentation and that the office note muist address stable angina in supporting documentation. I r/w RBC will have last OVwith Bertha CARBAJAL faxed. * Telephone Encounter - Alize Rosario MA - 08/13/2023 11:55 AM EDT The patient called stating [facility] has not received a referral from our office. I called the rehab # [phone] and they confirmed they have not received the referral. I faxed the referral to the fax number their office gave me and informed the patient. , received confirmation fax received. * Telephone Encounter - Belle Del Cid - 07/15/2023 10:58 AM EDT Faxed new order * Addendum Note - Satish Santos MD - 07/15/2023 10:44 AM EDTAddended by: SATISH SANTOS on: 07/15/2023 10:44 AM Modules accepted: Orders * Telephone Encounter - Satish Santos MD - 07/15/2023 10:43 AM EDT Re-did referral * Addendum Note - Rik Harris RN - 07/14/2023 4:01 PM EDTAddended by: RIK HARRIS on: 07/14/2023 04:01 PM Modules accepted: Orders * Telephone Encounter - Belle Del Cid - 07/11/2023 9:57 AM EDT Faxed to [facility] * Telephone Encounter - Satish Santos MD - 07/11/2023 9:43 AM EDT I did this, thank you * Addendum Note - Satish Santos MD - 07/11/2023 9:43 AM EDTAddended by: SATISH SANTOS on: 07/11/2023 09:43 AM Modules accepted: Orders * Telephone Encounter - Rik Harris RN - 06/25/2023 11:09 AM EDT Images from the original note were not included. Belle Del Cid You 1 minute ago (11:08 AM) [facility], needs cardiac rehab order signed by Physician not ERLIN, then will fax ov note, testing to [phone] * Telephone Encounter - Rik Harris RN - 06/25/2023 10:49 AM EDT Patient in office today to see Bertha. Requesting update on cardiac rehab order. Will have national secretary follow up on this. * Telephone Encounter - SON Alvarado CNP - 06/06/2023 4:50 PM EDT Please contact [facility] and ask what order is needed for cardiac rehab. Unable to locate an external cardiac rehab order in our system. documented in this [facility]11-06-2023 Telephone encounter Note* Telephone Encounter - Rik Harris RN - 08/18/2023 2:16 PM EST I called patient. I let her know Bertha RAVEN changed the diagnosis and this was faxed over to [facility]hab. In regards to other therapy, I did receive information packet from cardiac rehab and I placed it on 's desk. He is rounding in the hospital this week but I let her know once he reviews I will give her a call. She verbalized understanding. [facility] [facility] Cancer [id number] Miscellaneous Notes* Telephone Encounter - Rik Harris RN - 08/18/2023 2:16 PM EST I called patient. I let her know Bertha CARBAJAL changed the diagnosis and this was faxed over to [facility]. In regards to other therapy, I did receive information packet from cardiac rehab and I placed it on 's desk. He is rounding in the hospital this week but I let her know once he reviews I will give her a call. She verbalized understanding. * Telephone Encounter - Rik Harris RN - 08/15/2023 11:22 AM EDT I called Bronson. He states the 07/16/23 diagnosis needs to be changed that she does have angina pectoris. He also states patient may qualify for external counterpulsation therapy for microvascular disease. He will be faxing me information on that. PA will be back in office on Friday. Will fax once com pleted. I called patient to give her an update as we are heading into the weekend. Should have this resolved on Friday. I will call her once faxed. She verbalized understanding. * Telephone Encounter - Alize Rosario MA - 08/15/2023 10:41 AM EDT Bronson at [facility] requested you call him re: getting this patient set up for rehab. # [phone] * Telephone Encounter - Alize Rosario MA - 08/14/2023 4:13 PM EDT Note faxed. * Telephone Encounter - Rik Harris RN - 08/14/2023 2:07 PM EDT Received faxed request from [facility] that they need supporting documentation and that the office note muist address stable angina in supporting documentation. I r/w RBC will have last OVwith Bertha CARBAJAL faxed. * Telephone Encounter - Alize Rosario MA - 08/13/2023 11:55 AM EDT The patient called stating [facility] has not received a referral from our office. I called the rehab # [phone] and they confirmed they have not received the referral. I faxed the referral to the fax number their office gave me and informed the patient. , received confirmation fax received. * Telephone Encounter - Belle Del Cid - 07/15/2023 10:58 AM EDT Faxed new order * Addendum Note - Satish Santos MD - 07/15/2023 10:44 AM EDTAddended by: SATISH SANTOS on: 07/15/2023 10:44 AM Modules accepted: Orders * Telephone Encounter - Satish Santos MD - 07/15/2023 10:43 AM EDT Re-did referral * Addendum Note - Rik Harris RN - 07/14/2023 4:01 PM EDTAddended by: RIK HARRIS on: 07/14/2023 04:01 PM Modules accepted: Orders * Telephone Encounter - Belle Del Cid - 07/11/2023 9:57 AM EDT Faxed to [facility] * Telephone Encounter - Satish Santos MD - 07/11/2023 9:43 AM EDT I did this, thank you * Addendum Note - Satish Santos MD - 07/11/2023 9:43 AM EDTAddended by: SATISH SANTOS. on: 07/11/2023 09:43 AM Modules accepted: Orders * Telephone Encounter - Rik Harris RN - 06/25/2023 11:09 AM EDT Images from the original note were not included. Belle Del Cid You 1 minute ago (11:08 AM) [facility], needs cardiac rehab order signed by Physician not ERLIN, then will fax ov note, testing to [phone] * Telephone Encounter - Rik Harris RN - 06/25/2023 10:49 AM EDT Patient in office today to see Bertha. Requesting update on cardiac rehab order. Will have national secretary follow up on this. * Telephone Encounter - SON Alvarado CNP - 06/06/2023 4:50 PM EDT Please contact [facility] and ask what order is needed for cardiac rehab. Unable to locate an external cardiac rehab order in our system. documented in this [facility]11-06-2023 History of Present illness Narrative* Bertha Patricio PA-C - 08/18/2023 9:25 AM EST Order placed for cardiac rehab for angina pectoris documented in this [facility]11-03-2023 Telephone encounter Note* Telephone Encounter - Rik Harris RN - 08/15/2023 11:22 AM EDT I called Bronson. He states the 07/16/23 diagnosis needs to be changed that she does have angina pectoris. He also states patient may qualify for external counterpulsation therapy for microvascular disease. He will be faxing me information on that. PA will be back in office on Friday. Will fax once com pleted. I called patient to give her an update as we are heading into the weekend. Should have this resolved on Friday. I will call her once faxed. She verbalized understanding. [facility] [id number] Miscellaneous Notes* Telephone Encounter - Rik Harris RN - 08/15/2023 11:22 AM EDT I called Bronson. He states the 07/16/23 diagnosis needs to be changed that she does have angina pectoris. He also states patient may qualify for external counterpulsation therapy for microvascular disease. He will be faxing me information on that. PA will be back in office on Friday. Will fax once com pleted. I called patient to give her an update as we are heading into the weekend. Should have this resolved on Friday. I will call her once faxed. She verbalized understanding. * Telephone Encounter - Alize Rosario MA - 08/15/2023 10:41 AM EDT Bronson at [facility] requested you call him re: getting this patient set up for rehab. # [phone] * Telephone Encounter - Alize Rosario MA - 08/14/2023 4:13 PM EDT Note faxed. * Telephone Encounter - Rik Harris RN - 08/14/2023 2:07 PM EDT Received faxed request from [facility] that they need supporting documentation and that the office note muist address stable angina in supporting documentation. I r/w RBC will have last OVwith Bertha CARBAJAL faxed. * Telephone Encounter - Alize Rosario MA - 08/13/2023 11:55 AM EDT The patient called stating [facility] has not received a referral from our office. I called the rehab # [phone] and they confirmed they have not received the referral. I faxed the referral to the fax number their office gave me and informed the patient. , received confirmation fax received. * Telephone Encounter - Belle Del Cid - 07/15/2023 10:58 AM EDT Faxed new order * Addendum Note - Satish Santos MD - 07/15/2023 10:44 AM EDTAddended by: SATISH SANTOS on: 07/15/2023 10:44 AM Modules accepted: Orders * Telephone Encounter - Satish Santos MD - 07/15/2023 10:43 AM EDT Re-did referral * Addendum Note - Rik Harris RN - 07/14/2023 4:01 PM EDTAddended by: RIK HARRIS on: 07/14/2023 04:01 PM Modules accepted: Orders * Telephone Encounter - Belle Del Cid - 07/11/2023 9:57 AM EDT Faxed to [facility] * Telephone Encounter - Satish Santos MD - 07/11/2023 9:43 AM EDT I did this, thank you * Addendum Note - Satish Santos MD - 07/11/2023 9:43 AM EDTAddended by: SATISH SANTOS on: 07/11/2023 09:43 AM Modules accepted: Orders * Telephone Encounter - Rik Harris RN - 06/25/2023 11:09 AM EDT Images from the original note were not included. Belle Del Cid You 1 minute ago (11:08 AM) [facility], needs cardiac rehab order signed by Physician not ERLIN, then will fax ov note, testing to [phone] * Telephone Encounter - Rik Harris RN - 06/25/2023 10:49 AM EDT Patient in office today to see Bertha. Requesting update on cardiac rehab order. Will have national secretary follow up on this. * Telephone Encounter - Talisha Cardozo APRN - ROE - 06/06/2023 4:50 PM EDT Please contact [facility] and ask what order is needed for cardiac rehab. Unable to locate an external cardiac rehab order in our system. documented in this encounterSOhioHealth [facility] [id number] Telephone encounter Note* Telephone Encounter - Alize Rosario MA - 08/15/2023 10:41 AM EDT Bronson at [facility] requested you call him re: getting this patient set up for rehab. # [phone] [place] [id number] Telephone encounter Note* Telephone Encounter - Alize Rosario MA - 08/14/2023 4:13 PM EDT Note faxed. [place] [id number] Miscellaneous Notes* Telephone Encounter - Alize Rosario MA - 08/14/2023 4:13 PM EDT Note faxed. * Telephone Encounter - Rik Harris RN - 08/14/2023 2:07 PM EDT Received faxed request from [facility] that they need supporting documentation and that the office note muist address stable angina in supporting documentation. I r/w RBC will have last OVwith Bertha CARBAJAL faxed. * Telephone Encounter - Alize Rosario MA - 08/13/2023 11:55 AM EDT The [facility] called [facility] I called the rehab # [phone] and they confirmed they have not received the referral. I faxed the referral to the fax number their office gave me and informed the patient. , received confirmation fax received. * Telephone Encounter - Belle Del Cid - 07/15/2023 10:58 AM EDT Faxed new order * Addendum Note - Satish Santos MD - 07/15/2023 10:44 AM EDTAddended by: SATISH SANTOS on: 07/15/2023 10:44 AM Modules accepted: Orders * Telephone Encounter - Satish Santos MD - 07/15/2023 10:43 AM EDT Re-did referral * Addendum Note - Rik Harris RN - 07/14/2023 4:01 PM EDTAddended by: RIK HARRIS on: 07/14/2023 04:01 PM Modules accepted: Orders * Telephone Encounter - Belle Del Cid - 07/11/2023 9:57 AM EDT Faxed to [facility] * Telephone Encounter - Satish Santos MD - 07/11/2023 9:43 AM EDT I did this, thank you * Addendum Note - Satish Santos MD - 07/11/2023 9:43 AM EDTAddended by: SATISH SANTOS. on: 07/11/2023 09:43 AM Modules accepted: Orders * Telephone Encounter - Rik Harris RN - 06/25/2023 11:09 AM EDT Images from the original note were not included. Belle Del Cid You 1 minute ago (11:08 AM) [facility], needs cardiac rehab order signed by Physician not ERLIN, then will fax ov note, testing to [phone] * Telephone Encounter - Rik Harris RN - 06/25/2023 10:49 AM EDT Patient in office today to see Bertha. Requesting update on cardiac rehab order. Will have national secretary follow up on this. * Telephone Encounter - SON Alvarado CNP - 06/06/2023 4:50 PM EDT [facility] ask what [facility] needed [facility]. Unable to locate an external cardiac rehab order in our system. documented in this encounterSOhioHealth Mansfield [id number] Telephone encounter Note* Telephone Encounter - Rik Harris RN - 08/14/2023 2:07 PM EDT [facility] that [facility] need supporting documentation and that the office note muist address stable angina in supporting documentation. I r/w RBC will have last OVwith Bertha CARBAJAL faxed. [facility] [id number] NoteThe patient called stating [facility] has not received a referral from our office. I called the rehab # [phone] and they confirmed they have not received the referral. I faxed the referral to the fax number their office gave me and informed the patient. , received confirmation fax received.[facility]11-01-2023 Telephone encounter Note* Telephone Encounter - Alize Rosario MA - 08/13/2023 11:55 AM EDT The patient called stating [facility] has not received a referral from our office. I called the rehab # [phone] and they confirmed they have not received the referral. I faxed the referral to the fax number their office gave me and informed the patient. , received confirmation fax received. [facility] [id number] Miscellaneous Notes* Telephone Encounter - Alize Rosario MA - 08/13/2023 11:55 AM EDT The patient called stating [facility] has not received a referral from our office. I called the rehab # [phone] and they confirmed they have not received the referral. I faxed the referral to the fax number their office gave me and informed the patient. , received confirmation fax received. * Telephone Encounter - Belle Del Cid - 07/15/2023 10:58 AM EDT Faxed new order * Addendum Note - Satish Santos MD - 07/15/2023 10:44 AM EDTAddended by: SATISH SANTOS. on: 07/15/2023 10:44 AM Modules accepted: Orders * Telephone Encounter - Satish Santos MD - 07/15/2023 10:43 AM EDT Re-did referral * Addendum Note - Rik Harris RN - 07/14/2023 4:01 PM EDTAddended by: RIK HARRIS on: 07/14/2023 04:01 PM Modules accepted: Orders * Telephone Encounter - Belle Del Cid - 07/11/2023 9:57 AM EDT Faxed to [facility] * Telephone Encounter - Satish Santos MD - 07/11/2023 9:43 AM EDT I did this, thank you * Addendum Note - Satish Santos MD - 07/11/2023 9:43 AM EDTAddended by: SATISH SANTOS on: 07/11/2023 09:43 AM Modules accepted: Orders * Telephone Encounter - Rik Harris RN - 06/25/2023 11:09 AM EDT Images from the original note were not included. Belle Del Cid You 1 minute ago (11:08 AM) [facility], needs cardiac rehab order signed by Physician not ERLIN, then will fax ov note, testing to [phone] * Telephone Encounter - Rik Harris RN - 06/25/2023 10:49 AM EDT Patient in office today to see Bertha. Requesting update on cardiac rehab order. Will have national secretary follow up on this. * Telephone Encounter - SON Alvarado CNP - 06/06/2023 4:50 PM EDT Please contact [facility] and ask what order is needed for cardiac rehab. Unable to locate an external cardiac rehab order in our system. documented in this [facility]11-01-2023 Telephone encounter Note* Telephone Encounter - Lisa Rojo - 08/13/2023 11:29 AM EDT External lab results from [facility] lab clinic added to media folder. [id number] Miscellaneous Notes* Telephone Encounter - Lisa Rojo - 08/13/2023 11:29 AM EDT External lab results from [facility] lab clinic added to media folder. documented in this [id number] History of Present illness Narrative* Bertha Patricio PA-C - 07/16/2023 1:30 PM EDT [facility] Card[facility] Note DATE of SERVICE:07/16/23 TIME of SERVICE: 1:28 PM Chief Complaint: Chief Complaint Patient presents with Follow-up History of PresentIllness: Lisbeth Craven is a 63 y.o. female Known to Dr. Santos with a history of diabetes, chronic kidney disease, rheumatoid arthritis, fibromyalgia, heart catheterization in February 2022 where she received a stent to the right coronary artery.She was seen on an urgent basis with Dr. Santos June 05 due to recurrent chest pain. She was setup for heart catheterization that was performed on June 06 that noted her prior stents to be patent. She had obstructive disease in the distal circumflex/OM with right to left collateral. She had mild disease otherwise. She has been continued on medical therapy. She has been referred to cardiac rehab. She was last seen in the office on June 25 where she continued to notice chest discomfort about 2-3 times per week. They can occur with activity or rest and typically last several minutes at a time. Her EKG noted a junctional rhythm. We decreased her carvedilol, and added Imdur. We also reissued orders for cardiac rehab at [facility]. Today she states she is happy to say that she has had less episodes of chest discomfort with the addition of long-acting nitrate. Her EKG also looks improved with a sinus bradycardia, heart rate of 51. Past Medical History: Past Medical History: Diagnosis Date Chronic kidney disease Colon cancer (HCC) Coronary artery disease Hypertension PR (myocardial infarction) (HCC) Past Surgical History Past Surgical History: Procedure Laterality Date CARDIAC CATHETERIZATION N/A 06/06/2023 Performed by Tyrel Miles MD at [facility] Cardiac Cath/EP Lab Family History Family History Problem Relation Name Age of Onset Heart attack Father Social History Social History Tobacco Use Smoking status: Former Types: Cigarettes Substance Use Topics Alcohol use: Never Drug use: Never Allergies: Allergies Allergen Reactions Hydrochlorothiazide Cannot take capsule. Tolerates tablet Iodides Levofloxacin Liraglutide Methylprednisolone Medications: Current Outpatient Medications: amLODIPine (Norvasc) 5 MG tablet, Take 1 tablet (5 mg) by mouth daily. (Patient taking differently:Take 10 mg by mouth 2 times daily.), Disp: 90 tablet, Rfl: 3 aspirin 81 MG EC tablet, Take 1 tablet by mouth every morning., Disp: , Rfl: b complex vitamins capsule, Take 1 capsule by mouth in the morning., Disp: , Rfl: xmhnmfqfyw-zyksdwociusfx-tsciqnls 50-325-40 MG tablet, Take 1 tablet by mouth every 4 hours as needed for headaches., Disp: , Rfl: carvedilol (Coreg) 3.125 MG tablet, Take 1 tablet (3.125 mg) by mouth in the morning and 1 tablet (3.125 mg) in the evening. Take with meals., Disp: 60 tablet, Rfl: 3 cetirizine (ZyrTEC) 5 MG tablet, Take 10 mg by mouth in the morning., Disp: , Rfl: clopidogrel (Plavix) 75 MG tablet, Take 75 mg by mouth in the morning., Disp: , Rfl: empagliflozin (Jardiance) 25 MG, Take by mouth., Disp: , Rfl: Euthyrox 88 MCG tablet, Take 88 mcg by mouth in the morning., Disp: , Rfl: famotidine (Pepcid) 40 MG tablet, Take 40 mg by mouth in the morning., Disp: , Rfl: fluticasone (Flonase Sensimist) 27.5 MCG/SPRAY nasal spray, Administer 2 sprays into each nostril in the morning., Disp: , Rfl: glipiZIDE (Glucotrol) 10 MG tablet, Take 10 mg by mouth in the morning and 10 mg in the evening., Disp: , Rfl: hydroxychloroquine (Plaquenil) 200 MG tablet, Take by mouth., Disp: , Rfl: hyoscyamine (Levsin) 0.125 MG SL tablet, Take 0.125 mg by mouth every 4 hours as needed for cramping., Disp: , Rfl: isosorbide mononitrate ER (Imdur) 30 MG 24 hr tablet, Take 1 tablet (30 mg) by mouth daily. Do not crush or chew., Disp: 90 tablet, Rfl: 3 lisinopril 5 MG tablet, Take 5 mg by mouth in the morning., Disp: , Rfl: loperamide (Imodium) 2 MG capsule, Take 2 mg by mouth as needed for diarrhea., Disp: , Rfl: nitroglycerin (Nitrostat) 0.4 MG SL tablet, Place 1 tablet (0.4 mg) under the tongue every 5 minutes as needed for chest pain. Max 3 doses. If still having chest pain after 1st dose, call 911, Disp: 25 tablet, Rfl: 3 ondansetron ODT (Zofran-ODT) 8 MG disintegrating tablet, Take 8 mg by mouth every 8 hours as neededfor nausea or vomiting., Disp: , Rfl: predniSONE (Deltasone) 5 MG tablet, Take 5 mg by mouth in the morning., Disp: , Rfl: rosuvastatin (Crestor) 20 MG tablet, Take 1 tablet (20 mg) by mouth daily., Disp: 90 tablet, Rfl: 1 simethicone (Mylicon) 125 MG chewable tablet, Chew every 6 hours as needed for flatulence., Disp: ,Rfl: valACYclovir (Valtrex) 1 g tablet, Take by mouth 2 times daily. PRN, Disp: , Rfl: venlafaxine (Effexor) 100 MG tablet, Take 225 mg by mouth daily., Disp: , Rfl: Review of Systems: Review of Systems Constitutional: Negative for chills, diaphoresis and fever. HENT: Negative for congestion. Eyes: Negative for visual disturbance. Respiratory: Negative for chest tightness and shortness of breath. Cardiovascular: Negative for chest pain and palpitations. Gastrointestinal: Negative for abdominal pain, constipation, diarrhea and nausea. Endocrine: Negative for cold intolerance and heat intolerance. Genitourinary: Negative for dysuria and hematuria. Musculoskeletal: Positive for arthralgias. Skin: Negative for rash. Neurological: Negative for dizziness and syncope. Physical Examination: Vitals: Vitals: 07/16/23 1322 BP: 110/60 BP Location: Left arm Patient Position: Sitting BP Cuff Size: Large adult Pulse: 51 Resp: 16 SpO2: 99% Weight: 185 lb 6.4 oz (84.1 kg) Height: 5' 8 (1.727 m) Body mass index is 28.19 kg/m . Physical Exam Constitutional: General: She is not in acute distress. Appearance: She is not diaphoretic. HENT: Head: Normocephalic. Eyes: General: Right eye: No discharge. Left eye: No discharge. Conjunctiva/sclera: Conjunctivae normal. Cardiovascular: Rate and Rhythm: Normal rate and regular rhythm. Pulmonary: Breath sounds: No wheezing or rales. Abdominal: General: Bowel sounds are normal. Palpations: Abdomen is soft. Musculoskeletal: Right lower leg: No edema. Left lower leg: No edema. Skin: General: Skin is warm and dry. Findings: No erythema or rash. Neurological: Mental Status: She is oriented to person, place, and time. Psychiatric: Mood and Affect: Mood normal. Laboratory Tests: Lab Results Component Value Date WBC 11.3 (H) 06/05/2023 HGB 14.2 06/05/2023 HCT 44.2 06/05/2023 MCV 85.8 06/05/2023 PLT 272 06/05/2023 Lab Results Component Value Date GLUCOSE 187 (H) 06/05/2023 CALCIUM 9.3 06/05/2023 NA 137 06/05/2023 K 4.9 06/05/2023 CO2 19 (L) 06/05/2023 CL 105 06/05/2023 BUN 31 (H) 06/05/2023 CREATININE 1.33 (H) 06/05/2023 @LASTCMP@ Lab Results Component Value Date CHOL 170 06/06/2023 Lab Results Component Value Date TRIG 171 (H) 06/06/2023 Lab Results Component Value Date HDL 47 06/06/2023 Lab Results Component Value Date LDLCALC 89 06/06/2023 No components found for: LVEF , LVEFMODE Left heart catheterization 06/06/23 Conclusion 63 yo F with a prior Hx of CAD s/p 3 stents to the RCA in 02/2022 who presented to the outpatient cardiology office with complaints of worsening chest pain symptoms over the last couple of weeks. Shewas sent to the ED for expedited work up. Access: R radial artery was cannulated for the procedure and a Vasc band was placed at the end for hemostasis. Coronary Angiography: It is a R dominant system. The left main is normal. The LAD has 2 diagonals. There is mild disease in the LAD with up to 30% lesion in the proximal segment. D1 is small. D2 is moderate size branching vessel without any significant disease. The LCx has 3 obtuse marginal vessels. There is mild disease in the mid Lcx up to 30%. The distal Lcx is chronically totally or subtotally occluded. The distal vessels fill from robust R to L collaterals. The RCA is moderate caliber. Prior RCA stents extending from the proximal to distal RCA are patent with minimal in-stent restenosis. No significant disease in the RPL and RPDA. Hemodynamic Results: LVEDP is 15 mm Hg; there is no aortic valve gradient. Impressions: Patent RCA stents Obstructive disease in the Dital Lcx/OM with R to L collateral Mild disease otherwise Mildly elevated filling pressures No aortic valve gradient Recommendations: Risk factor surveillance and modification. Aggressive medical management of CAD. Up titration of anti-anginal medications. Rest of the care per inpatient cardiology consult team. Assessment and Plan: Coronary artery disease with previous stenting to the right coronary artery in February 2022. Recent heart catheterization June 06 noted patent stents. She has obstructive disease in the distal circumflex /OM being treated medically. She will continue carvedilol, Imdur, rosuvastatin, amlodipine, aspirin, and Plavix. She plans to start cardiac rehab at [facility] Hypertension. Blood pressure is controlled. She will continue carvedilol, Imdur, amlodipine, and lisinopril. I have given her orders for a follow-up CMP. Lipid status. Crestor was increased at her last visit. Have given her orders for lipid panel and CMP to be completed in 1 month. She is scheduled to see Dr. Santos September 17. We will keep that appointment as scheduled. documented in this [facility]10-04-2023 History of Present illness Narrative* Bertha Patricio PA-C - 07/16/2023 1:30 PM EDT [facility] Cardiology Note DATE of SERVICE:08/18/23 TIME of SERVICE: 12:16 PM Chief Complaint: Chief Complaint Patient presents with Follow-up History of PresentIllness: Lisbeth Craven is a 63 y.o. female Known to Dr. Santos with a history of diabetes, chronic kidney disease, rheumatoid arthritis, fibromyalgia, heart catheterization in February 2022 where she received a stent to the right coronary artery.She was seen on an urgent basis with Dr. Santos June 05 due to recurrent chest pain. She was setup for heart catheterization that was performed on June 06 that noted her prior stents to be patent. She had obstructive disease in the distal circumflex/OM with right to left collateral. She had mild disease otherwise. She has been continued on medical therapy. She has been referred to cardiac rehab. She was last seen in the office on June 25 where she continued to notice chest discomfort about 2-3 times per week. They can occur with activity or rest and typically last several minutes at a time. Her EKG noted a junctional rhythm. We decreased her carvedilol, and added Imdur. We also reissued orders for cardiac rehab at [facility]. Today she states she is happy to say that she has had less episodes of chest discomfort with the addition of long-acting nitrate. Her EKG also looks improved with a sinus bradycardia, heart rate of 51. Past Medical History: Past Medical History: Diagnosis Date Chronic kidney disease Colon cancer (HCC) Coronary artery disease Hypertension PR (myocardial infarction) (HCC) Past Surgical History Past Surgical History: Procedure Laterality Date CARDIAC CATHETERIZATION N/A 06/06/2023 Performed by Tyrel Miles MD at [facility] Cardiac Cath/EP Lab Family History Family History Problem Relation Name Age of Onset Heart attack Father Social History Social History Tobacco Use Smoking status: Former Types: Cigarettes Substance Use Topics Alcohol use: Never Drug use: Never Allergies: Allergies Allergen Reactions Hydrochlorothiazide Cannot take capsule. Tolerates tablet Iodides Levofloxacin Liraglutide Methylprednisolone Medications: Current Outpatient Medications: amLODIPine (Norvasc) 5 MG tablet, Take 1 tablet (5 mg) by mouth daily. (Patient taking differently:Take 10 mg by mouth 2 times daily.), Disp: 90 tablet, Rfl: 3 aspirin 81 MG EC tablet, Take 1 tablet by mouth every morning., Disp: , Rfl: b complex vitamins capsule, Take 1 capsule by mouth in the morning., Disp: , Rfl: carvedilol (Coreg) 3.125 MG tablet, Take 1 tablet (3.125 mg) by mouth in the morning and 1 tablet (3.125 mg) in the evening. Take with meals., Disp: 60 tablet, Rfl: 3 cetirizine (ZyrTEC) 5 MG tablet, Take 10 mg by mouth in the morning., Disp: , Rfl: clopidogrel (Plavix) 75 MG tablet, Take 75 mg by mouth in the morning., Disp: , Rfl: empagliflozin (Jardiance) 25 MG, Take by mouth., Disp: , Rfl: Euthyrox 88 MCG tablet, Take 88 mcg by mouth in the morning., Disp: , Rfl: famotidine (Pepcid) 40 MG tablet, Take 40 mg by mouth in the morning., Disp: , Rfl: fluticasone (Flonase Sensimist) 27.5 MCG/SPRAY nasal spray, Administer 2 sprays into each nostril in the morning., Disp: , Rfl: glipiZIDE (Glucotrol) 10 MG tablet, Take 10 mg by mouth in the morning and 10 mg in the evening., Disp: , Rfl: hydroxychloroquine (Plaquenil) 200 MG tablet, Take by mouth., Disp: , Rfl: hyoscyamine (Levsin) 0.125 MG SL tablet, Take 0.125 mg by mouth every 4 hours as needed for cramping., Disp: , Rfl: isosorbide mononitrate ER (Imdur) 30 MG 24 hr tablet, Take 1 tablet (30 mg) by mouth daily. Do not crush or chew., Disp: 90 tablet, Rfl: 3 lisinopril 5 MG tablet, Take 5 mg by mouth in the morning., Disp: , Rfl: loperamide (Imodium) 2 MG capsule, Take 2 mg by mouth as needed for diarrhea., Disp: , Rfl: ondansetron ODT (Zofran-ODT) 8 MG disintegrating tablet, Take 8 mg by mouth every 8 hours as neededfor nausea or vomiting., Disp: , Rfl: PREDNISONE PO, Take 4 mg by mouth daily., Disp: , Rfl: rosuvastatin (Crestor) 20 MG tablet, Take 1 tablet (20 mg) by mouth daily., Disp: 90 tablet, Rfl: 1 simethicone (Mylicon) 125 MG chewable tablet, Chew every 6 hours as needed for flatulence., Disp: ,Rfl: valACYclovir (Valtrex) 1 g tablet, Take by mouth 2 times daily. PRN, Disp: , Rfl: venlafaxine (Effexor) 100 MG tablet, Take 225 mg by mouth daily., Disp: , Rfl: rihiyeoiml-nkanrjbuedgon-wncyoofz 50-325-40 MG tablet, Take 1 tablet by mouth every 4 hours as needed for headaches., Disp: , Rfl: nitroglycerin (Nitrostat) 0.4 MG SL tablet, Place 1 tablet (0.4 mg) under the tongue every 5 minutes as needed for chest pain. Max 3 doses. If still having chest pain after 1st dose, call 911, Disp: 25 tablet, Rfl: 3 Review of Systems: Review of Systems Constitutional: Negative for chills, diaphoresis and fever. HENT: Negative for congestion. Eyes: Negative for visual disturbance. Respiratory: Negative for chest tightness and shortness of breath. Cardiovascular: Negative for chest pain and palpitations. Gastrointestinal: Negative for abdominal pain, constipation, diarrhea and nausea. Endocrine: Negative for cold intolerance and heat intolerance. Genitourinary: Negative for dysuria and hematuria. Musculoskeletal: Positive for arthralgias. Skin: Negative for rash. Neurological: Negative for dizziness and syncope. Physical Examination: Vitals: Vitals: 07/16/23 1322 BP: 110/60 BP Location: Left arm Patient Position: Sitting BP Cuff Size: Large adult Pulse: 51 Resp: 16 SpO2: 99% Weight: 185 lb 6.4 oz (84.1 kg) Height: 5' 8 (1.727 m) Body mass index is 28.19 kg/m . Physical Exam Constitutional: General: She is not in acute distress. Appearance: She is not diaphoretic. HENT: Head: Normocephalic. Eyes: General: Right eye: No discharge. Left eye: No discharge. Conjunctiva/sclera: Conjunctivae normal. Cardiovascular: Rate and Rhythm: Normal rate and regular rhythm. Pulmonary: Breath sounds: No wheezing or rales. Abdominal: General: Bowel sounds are normal. Palpations: Abdomen is soft. Musculoskeletal: Right lower leg: No edema. Left lower leg: No edema. Skin: General: Skin is warm and dry. Findings: No erythema or rash. Neurological: Mental Status: She is oriented to person, place, and time. Psychiatric: Mood and Affect: Mood normal. Laboratory Tests: Lab Results Component Value Date WBC 11.3 (H) 06/05/2023 HGB 14.2 06/05/2023 HCT 44.2 06/05/2023 MCV 85.8 06/05/2023 PLT 272 06/05/2023 Lab Results Component Value Date GLUCOSE 165 (A) 08/13/2023 CALCIUM 9.0 08/13/2023 NA 140 08/13/2023 K 4.9 06/05/2023 CO2 19 (L) 06/05/2023 CL 108 (A) 08/13/2023 BUN 27 (A) 08/13/2023 CREATININE 1.70 (A) 08/13/2023 @LASTCMP@ Lab Results Component Value Date CHOL 124 08/13/2023 CHOL 170 06/06/2023 Lab Results Component Value Date TRIG 152 (A) 08/13/2023 TRIG 171 (H) 06/06/2023 Lab Results Component Value Date HDL 62 (A) 08/13/2023 HDL 47 06/06/2023 Lab Results Component Value Date LDLCALC 32 08/13/2023 No components found for: LVEF , LVEFMODE Left heart catheterization 06/06/23 Conclusion 63 yo F with a prior Hx of CAD s/p 3 stents to the RCA in 02/2022 who presented to the outpatient cardiology office with complaints of worsening chest pain symptoms over the last couple of weeks. Shewas sent to the ED for expedited work up. Access: R radial artery was cannulated for the procedure and a Vasc band was placed at the end for hemostasis. Coronary Angiography: It is a R dominant system. The left main is normal. The LAD has 2 diagonals. There is mild disease in the LAD with up to 30% lesion in the proximal segment. D1 is small. D2 is moderate size branching vessel without any significant disease. The LCx has 3 obtuse marginal vessels. There is mild disease in the mid Lcx up to 30%. The distal Lcx is chronically totally or subtotally occluded. The distal vessels fill from robust R to L collaterals. The RCA is moderate caliber. Prior RCA stents extending from the proximal to distal RCA are patent with minimal in-stent restenosis. No significant disease in the RPL and RPDA. Hemodynamic Results: LVEDP is 15 mm Hg; there is no aortic valve gradient. Impressions: Patent RCA stents Obstructive disease in the Dital Lcx/OM with R to L collateral Mild disease otherwise Mildly elevated filling pressures No aortic valve gradient Recommendations: Risk factor surveillance and modification. Aggressive medical management of CAD. Up titration of anti-anginal medications. Rest of the care per inpatient cardiology consult team. Assessment and Plan: Coronary artery disease with previous stenting to the right coronary artery in February 2022. Recent heart catheterization June 06 noted patent stents. She has obstructive disease in the distal circumflex /OM being treated medically. She will continue carvedilol, Imdur, rosuvastatin, amlodipine, aspirin, and Plavix. She plans to start cardiac rehab at [facility] Hypertension. Blood pressure is controlled. She will continue carvedilol, Imdur, amlodipine, and lisinopril. I have given her orders for a follow-up CMP. Lipid status. Crestor was increased at her last visit. Have given her orders for lipid panel and CMP to be completed in 1 month. She is scheduled to see Dr. Santos September 17. We will keep that appointment as scheduled. documented in this [facility]10-03-2023 NoteAddended by: SATISH SANTOS on: 07/15/2023 10:44 AM Modules accepted: [facility]10-03-2023 Telephone encounter Note* Telephone Encounter - Belle Del Cid - 07/15/2023 10:58 AM EDT [id number] Miscellaneous Notes* Telephone Encounter - Belle Del Cid - 07/15/2023 10:58 AM EDT Faxed new order * Addendum Note - Satish Santos MD - 07/15/2023 10:44 AM EDTAddended by: SATISH SANTOS on: 07/15/2023 10:44 AM Modules accepted: Orders * Telephone Encounter - Satish Santos MD - 07/15/2023 10:43 AM EDT Re-did referral * Addendum Note - Rik Harris RN - 07/14/2023 4:01 PM EDTAddended by: RIK HARRIS on: 07/14/2023 04:01 PM Modules accepted: Orders * Telephone Encounter - Belle Del Cid - 07/11/2023 9:57 AM EDT Faxed to [facility] * Telephone Encounter - Satish Santos MD - 07/11/2023 9:43 AM EDT I did this, thank you * Addendum Note - Satish Santos MD - 07/11/2023 9:43 AM EDTAddended by: SATISH SANTOS. on: 07/11/2023 09:43 AM Modules accepted: Orders * Telephone Encounter - Rik Harris RN - 06/25/2023 11:09 AM EDT Images from the original note were not included. Belle Del Cid You 1 minute ago (11:08 AM) [facility], needs cardiac rehab order signed by Physician not ERLIN, then will fax ov note, testing to [phone] * Telephone Encounter - Rik Harris RN - 06/25/2023 10:49 AM EDT Patient in office today to see Bertha. Requesting update on cardiac rehab order. Will have national secretary follow up on this. * Telephone Encounter - SON Alvarado CNP - 06/06/2023 4:50 PM EDT Please contact [facility] and ask what order is needed for cardiac rehab. Unable to locate an external cardiac rehab order in our system. documented in this [facility]10-03-2023 Note* Addendum Note - Satish Santos MD - 07/15/2023 10:44 AM EDTAddended by: SATISH SANTOS on: 07/15/2023 10:44 AM Modules accepted: Orders [place] [id number] Note* Addendum Note - Satish Santos MD - 07/15/2023 10:44 AM EDTAddended by: SATISH SANTOS on: 07/15/2023 10:44 AM Modules accepted: Orders [facility] [id number] Note* Addendum Note - Satish Santos MD - 07/15/2023 10:44 AM EDTAddended by: SATISH SANTOS on: 07/15/2023 10:44 AM Modules accepted: Orders [facility] CenterUayxne93-65-1331 Note* Addendum Note - Satish Santos MD - 07/15/2023 10:44 AM EDTAddended by: SATISH SANTOS on: 07/15/2023 10:44 AM Modules accepted: Orders [facility] [id number] Note* Addendum Note - Satish Santos MD - 07/15/2023 10:44 AM EDTAddended by: SATISH SANTOS on: 07/15/2023 10:44 AM Modules accepted: Orders [facility] CenterTlkfum83-80-1639 Note* Addendum Note - Satish Santos MD - 07/15/2023 10:44 AM EDTAddended by: SATISH SANTOS on: 07/15/2023 10:44 AM Modules accepted: Orders [place] [id number] Note* Addendum Note - Satish Santos MD - 07/15/2023 10:44 AM EDTAddended by: SATISH SANTOS on: 07/15/2023 10:44 AM Modules accepted: Orders [place] [id number] Note* Addendum Note - Satish Santos MD - 07/15/2023 10:44 AM EDTAddended by: SATISH SANTOS on: 07/15/2023 10:44 AM Modules accepted: Orders [place] [id number] Note* Addendum Note - Satish Santos MD - 07/15/2023 10:44 AM EDTAddended by: SATISH SANTOS on: 07/15/2023 10:44 AM Modules accepted: Orders [place] [id number] Note* Addendum Note - Satish Santos MD - 07/15/2023 10:44 AM EDTAddended by: SATISH SANTOS on: 07/15/2023 10:44 AM Modules accepted: Orders [place] [id number] Note* Addendum Note - Satish Santos MD - 07/15/2023 10:44 AM EDTAddended by: SATISH SANTOS on: 07/15/2023 10:44 AM Modules accepted: [id number] Note* Addendum Note - Satish Santos MD - 07/15/2023 10:44 AM EDTAddended by: SATISH SANTOS on: 07/15/2023 10:44 AM Modules accepted: Orders [place] [id number] Note* Addendum Note - Satish Santos MD - 07/15/2023 10:44 AM EDTAddended by: SATISH SANTOS on: 07/15/2023 10:44 AM Modules accepted: Orders [place] [id number] Note* Addendum Note - Satish Santos MD - 07/15/2023 10:44 AM EDTAddended by: SATISH SANTOS on: 07/15/2023 10:44 AM Modules accepted: Orders [place] [id number] Telephone encounter Note* Telephone Encounter - Satish Santos MD - 07/15/2023 10:43 AM EDT Re-did referral [place] [id number] NoteAddended by: RIK HARRIS on: 07/14/2023 04:01 PM Modules accepted: [facility]10-02-2023 Note* Addendum Note - Rik Harris RN - 07/14/2023 4:01 PM EDTAddended by: RIK AHRRIS on: 07/14/2023 04:01 PM Modules accepted: Orders [place] [id number] Note* Addendum Note - Rik Harris RN - 07/14/2023 4:01 PM EDTAddended by: RIK HARRIS on: 07/14/2023 04:01 PM Modules accepted: Orders [place] [id number] Note* Addendum Note - Rik Harris RN - 07/14/2023 4:01 PM EDTAddended by: RIK HARRIS on: 07/14/2023 04:01 PM Modules accepted: Orders [place] [id number] Note* Addendum Note - Rik Harris RN - 07/14/2023 4:01 PM EDTAddended by: RIK HARRIS on: 07/14/2023 04:01 PM Modules accepted: Orders [place] [id number] Note* Addendum Note - Rik Harris RN - 07/14/2023 4:01 PM EDTAddended by: RIK HARRIS on: 07/14/2023 04:01 PM Modules accepted: Orders [place] [id number] Note* Addendum Note - Rik Harris RN - 07/14/2023 4:01 PM EDTAddended by: RIK HARRIS on: 07/14/2023 04:01 PM Modules accepted: Orders [place] [id number] Note* Addendum Note - Rik Harris RN - 07/14/2023 4:01 PM EDTAddended by: RIK HARRIS on: 07/14/2023 04:01 PM Modules accepted: Orders [place] [id number] Note* Addendum Note - Rik Harris RN - 07/14/2023 4:01 PM EDTAddended by: RIK HARRIS on: 07/14/2023 04:01 PM Modules accepted: Orders [place] [id number] Note* Addendum Note - Rik Harris RN - 07/14/2023 4:01 PM EDTAddended by: RIK HARRIS on: 07/14/2023 04:01 PM Modules accepted: Orders [place] [id number] Note* Addendum Note - Rik Harris RN - 07/14/2023 4:01 PM EDTAddended by: RIK HARRIS on: 07/14/2023 04:01 PM Modules accepted: [id number] Note* Addendum Note - Rik Harris RN - 07/14/2023 4:01 PM EDTAddended by: RIK HARRIS on: 07/14/2023 04:01 PM Modules accepted: Orders [place] [id number] Note* Addendum Note - Rik Harris RN - 07/14/2023 4:01 PM EDTAddended by: RIK HARRIS on: 07/14/2023 04:01 PM Modules accepted: Orders [place] [id number] Note* Addendum Note - Rik Harris RN - 07/14/2023 4:01 PM EDTAddended by: RIK HARRIS on: 07/14/2023 04:01 PM Modules accepted: Orders [address]Fjhovu43-15-4402 Note* Addendum Note - Rik Harris RN - 07/14/2023 4:01 PM EDTAddended by: RIK HARRIS on: 07/14/2023 04:01 PM Modules accepted: Orders [id number] Note* Addendum Note - Rik Harris RN - 07/14/2023 4:01 PM EDTAddended by: RIK HARRIS on: 07/14/2023 04:01 PM Modules accepted: Orders [facility] [id number] Miscellaneous Notes* Addendum Note - Rik Harris RN - 07/14/2023 4:01 PM EDTAddended by: RIK HARRIS on: 07/14/2023 04:01 PM Modules accepted: Orders * Telephone Encounter - Belle Del Cid - 07/11/2023 9:57 AM EDT Faxed to [facility] * Telephone Encounter - Satish Santos MD - 07/11/2023 9:43 AM EDT I did this, thank you * Addendum Note - Satish Santos MD - 07/11/2023 9:43 AM EDTAddended by: SATISH SANTOS on: 07/11/2023 09:43 AM Modules accepted: Orders * Telephone Encounter - Rik Harris RN - 06/25/2023 11:09 AM EDT Images from the original note were not included. Belle Del Cid You 1 minute ago (11:08 AM) [facility], needs cardiac rehab order signed by Physician not ERLIN, then will fax ov note, testing to [phone] * Telephone Encounter - Rik Harris RN - 06/25/2023 10:49 AM EDT Patient in office today to see Bertha. Requesting update on cardiac rehab order. Will have national secretary follow up on this. * Telephone Encounter - SON Alvarado CNP - 06/06/2023 4:50 PM EDT Please contact [facility] and ask what order is needed for cardiac rehab. Unable to locate an external cardiac rehab order in our system. documented in this [facility]09-29-2023 NoteAddended by: SATISH SANTOS on: 07/11/2023 09:43 AM Modules accepted: [facility]09-29-2023 Telephone encounter Note* Telephone Encounter - Belle Del Cid - 07/11/2023 9:57 AM EDT Faxed to [facility] [id number] Miscellaneous Notes* Telephone Encounter - Belle Del Cid - 07/11/2023 9:57 AM EDT Faxed to [facility] * Telephone Encounter - Satish Santos MD - 07/11/2023 9:43 AM EDT I did this, thank you * Addendum Note - Satish Santos MD - 07/11/2023 9:43 AM EDTAddended by: SATISH SANTOS on: 07/11/2023 09:43 AM Modules accepted: Orders * Telephone Encounter - Rik Harris RN - 06/25/2023 11:09 AM EDT Images from the original note were not included. Belle Del Cid You 1 minute ago (11:08 AM) [facility], needs cardiac rehab order signed by Physician not ERLIN, then will fax ov note, testing to [phone] * Telephone Encounter - Rik Harris RN - 06/25/2023 10:49 AM EDT Patient in office today to see Bertha. Requesting update on cardiac rehab order. Will have national secretary follow up on this. * Telephone Encounter - SON Alvarado CNP - 06/06/2023 4:50 PM EDT Please contact [facility] and ask what order is needed for cardiac rehab. Unable to locate an external cardiac rehab order in our system. documented in this [facility]SOhio[facility] HospitalAylmdp00-13-5084 Telephone encounter Note* Telephone Encounter - Satish Santos MD - 07/11/2023 9:43 AM EDT I did this, thank you [facility] CenterKaipmh15-57-0322 Note* Addendum Note - Satish Santos MD - 07/11/2023 9:43 AM EDTAddended by: SATISH SANTOS. on: 07/11/2023 09:43 AM Modules accepted: [address]Bczlls06-84-5448 Note* Addendum Note - Satish Santos MD - 07/11/2023 9:43 AM EDTAddended by: SATISH SANTOS on: 07/11/2023 09:43 AM Modules accepted: [address]Bclxxa70-12-6787 Note* Addendum Note - Satish Santos MD - 07/11/2023 9:43 AM EDTAddended by: SATISH SANTOS on: 07/11/2023 09:43 AM Modules accepted: Orders [address]Kvryhy95-31-8846 Note* Addendum Note - Satish Santos MD - 07/11/2023 9:43 AM EDTAddended by: SATISH SANTOS on: 07/11/2023 09:43 AM Modules accepted: [address]Xsjcqj45-98-7105 Note* Addendum Note - Satish Santos MD - 07/11/2023 9:43 AM EDTAddended by: SATISH SANTOS on: 07/11/2023 09:43 AM Modules accepted: Orders [address]Lbmtda81-49-5464 Note* Addendum Note - Satish Santos MD - 07/11/2023 9:43 AM EDTAddended by: SATISH SANTOS on: 07/11/2023 09:43 AM Modules accepted: Orders [address]Lpiynx52-04-9685 Note* Addendum Note - Satish Santos MD - 07/11/2023 9:43 AM EDTAddended by: SATISH SANTOS on: 07/11/2023 09:43 AM Modules accepted: [address]Jevkkm79-42-6164 Note* Addendum Note - Satish Santos MD - 07/11/2023 9:43 AM EDTAddended by: SATISH SANTOS on: 07/11/2023 09:43 AM Modules accepted: Orders [address]Nrgsze93-58-5887 Note* Addendum Note - Satish Santos MD - 07/11/2023 9:43 AM EDTAddended by: SATISH SANTOS on: 07/11/2023 09:43 AM Modules accepted: Orders [address]Wkvqlo00-61-6475 Note* Addendum Note - Satish Santos MD - 07/11/2023 9:43 AM EDTAddended by: SATISH SANTOS on: 07/11/2023 09:43 AM Modules accepted: [address]Tgnjvm32-36-5122 Note* Addendum Note - Satish Santos MD - 07/11/2023 9:43 AM EDTAddended by: SATISH SANTOS on: 07/11/2023 09:43 AM Modules accepted: [address]Mrsmha90-75-6020 Note* Addendum Note - Satish Santos MD - 07/11/2023 9:43 AM EDTAddended by: SATISH SANTOS on: 07/11/2023 09:43 AM Modules accepted: [address]Yqohyb33-71-7563 Note* Addendum Note - Satish Santos MD - 07/11/2023 9:43 AM EDTAddended by: SATISH SANTOS on: 07/11/2023 09:43 AM Modules accepted: [address]Jyuzmi12-74-0273 Note* Addendum Note - Satish Santos MD - 07/11/2023 9:43 AM EDTAddended by: SATISH SANTOS on: 07/11/2023 09:43 AM Modules accepted: Orders [address]Nyzxcw94-83-3347 Note* Addendum Note - Satish Santos MD - 07/11/2023 9:43 AM EDTAddended by: SATISH SANTOS on: 07/11/2023 09:43 AM Modules accepted: Orders [address]Zwpslo51-58-5188 Note* Addendum Note - Satish Santos MD - 07/11/2023 9:43 AM EDTAddended by: SATISH SANTOS on: 07/11/2023 09:43 AM Modules accepted: Orders [address]Mvdmij85-05-0100 Note* Addendum Note - Satish Santos MD - 07/11/2023 9:43 AM EDTAddended by: SATISH SANTOS on: 07/11/2023 09:43 AM Modules accepted: Orders [address]Yxjtug58-65-8696 Note* Addendum Note - Satish Santos MD - 07/11/2023 9:43 AM EDTAddended by: SATISH SANTOS on: 07/11/2023 09:43 AM Modules accepted: Orders [facility] CenterNknlab20-35-4917 Note* Addendum Note - Satish Santos MD - 07/11/2023 9:43 AM EDTAddended by: SATISH SANTOS. on: 07/11/2023 09:43 AM Modules accepted: Orders [facility] CenterYziiad74-02-6126 Telephone encounter Note* Telephone Encounter - Patrick Wu MD - 07/04/2023 8:26 AM EDT Offer her September 02) at [facility] at 1120am. This is NOT where she saw me before but sheis coming from [place] and this might be closer than [place]. If she prefers [place], I will see where I can overbook. [id number] Miscellaneous Notes* Telephone Encounter - Patrick Wu MD - 07/04/2023 8:26 AM EDT Offer her September 02 (Friday) at [facility] at 1120am. This is NOT where she saw me before but sheis coming from [place] and this might be closer than [place]. If she prefers [place], I will see where I can overbook. * Telephone Encounter - Fernanda Arroyo - 06/30/2023 3:19 PM EDT Patient returned clinic call. Informed of message per notes below. Patient verbalized understandingand voiced no further questions. Pt stated cant come at 745 because shes coming from [place] she needs 11am or later. * Telephone Encounter - Zulay Jefferson RN - 06/30/2023 2:53 PM EDT Attempted to contact pt No answer Message left asking for pt to call office back, if pt does call back can you please relay message Patrick Wu MD 43 minutes ago (2:09 PM) Please let her know labs were ok. Not a lot of inflammation. Xrays showed one questionable erosion (rheumatoid damage) but overall were ok. Please offer her 745am on August 25 at [place] if sheis willing * Telephone Encounter - Patrick Wu MD - 06/30/2023 2:08 PM EDT Please let her know labs were ok. Not a lot of inflammation. Xrays showed one questionable erosion (rheumatoid damage) but overall were ok. Please offer her 745am on August 25 at [place] if sheis willing * Telephone Encounter - Patrick Wu MD - 06/20/2023 9:09 AM EDT Please arrange for September 01 f2f in [place] (held template but no longer taking vacation). Thanks! documented in this [id number] NoteHNO ID: [id number] Author: Handy Bates MD Service: ? Author Type: Physician Type: Progress Notes Filed: 07/01/2023 2:00 PM Note Text: HISTORY OF PRESENT ILLNESS: Lisbeth Craven is a 63 year old female history colon cancer found on basis of bleeding. She is on ac due to prior PR. 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 Here for follow up, CEA rising. Scans reviewed, negative. Colonoscopy planned in November 2023 CLINICAL IMPRESSION: Stage I colon cancer resected. Rising CEA, reviewed other possible reasons for this, including DM, inflammation RECOMMENDATION/PLAN: 1. CEA in 4 months 2. Follow up after that 3. Otherwise no further surveillance needed re the stage I colon cancer Written and verbal health teaching given to patient, patient verbalizes understanding and agrees with treatment plan. PAST MEDICAL HISTORY Diagnosis Date Diabetes mellitus (HCC) Erythromelalgia (HCC) Fibromyalgia GERD (gastroesophageal reflux disease) Heart attack (HCC) Kidney disease Neuropathy Osteopenia Rheumatoid arthritis (HCC) PAST SURGICAL HISTORY Procedure Laterality Date APPENDECTOMY BACK SURGERY HX x 2 NECK SURGERY HX PAST SURGICAL HISTORY OF Ganglion Cyst removed from wrists AND one under left breast PAST SURGICAL HISTORY OF Heart Stent x 3 PAST SURGICAL HISTORY OF Colon Resection PAST SURGICAL HISTORY OF [place]endon surgery both arms REMOVAL GALLBLADDER TONSILLECTOMY HX FAMILY HISTORY Problem Relation Age of Onset Heart Father Diabetes Father Hypertension Father Lung Cancer Father Heart Brother Heart Brother Social History Tobacco Use Smoking status: Former Packs/day: 1.00 Years: 15.00 Additional pack years: 0.00 Total pack years: 15.00 Types: Cigarettes Quit date: 1992 Years since quittin.7 Smokeless tobacco: Never ALLERGIES: ALLERGIES Allergen Reactions Adhesive Rash Hydrochlorothiazide Unknown Hydrocodone Itching Iron Diarrhea Ivp Dye [Iodine] Rash, Shortness of Breath Levaquin [Levofloxa* Shortness of Breath Methylprednisone Mental Status Change Percocet [Oxycodone* Itching Sulfa (Sulfonamide * Rash Victoza [Liraglutid* GI Upset, Vomiting CURRENT OUTPATIENT MEDICATIONS: empagliflozin (JARDIANCE) 25 mg tablet Take 25 mg by mouth once daily. isosorbide mononitrate ER (IMDUR) 30 mg 24 hr tablet Take 30 mg by mouth once daily. levothyroxine (SYNTHROID) 88 mcg tablet Take 88 mcg by mouth once daily. predniSONE (DELTASONE) 5 mg tablet Take 4 mg by mouth once daily. clopidogrel (PLAVIX) 75 mg tablet Take 75 mg by mouth once daily. carvedilol (COREG) 3.125 mg tablet Take 3.125 mg by mouth twice daily. venlafaxine (EFFEXOR) 75 mg tablet Take 75 mg by mouth once daily. venlafaxine ER (EFFEXOR XR) 150 mg 24 hr capsule Take 150 mg by mouth once daily. glipiZIDE (GLUCOTROL) 10 mg tablet Take 10 mg by mouth twice daily. hydrOXYchloroQUINE (PLAQUENIL) 200 mg tablet Take 400 mg by mouth once daily. amLODIPine (NORVASC) 5 mg tablet Take 10 mg by mouth once daily. vitamin b complex tab Take 1 tablet by mouth once daily. lisinopril (ZESTRIL) 5 mg tablet Take 5 mg by mouth once daily. famotidine (PEPCID) 40 mg tablet Take 40 mg by mouth once daily. BIOTIN ORAL Take 1 tablet by mouth once daily. rosuvastatin (CRESTOR) 10 mg tablet Take 10 mg by mouth daily at bedtime. ondansetron (ZOFRAN) 8 mg tablet Take 8 mg by mouth every 8 hours as needed for nausea/vomiting. hyoscyamine sulfate 0.125 mg ODT Dissolve 0.125 mg under the tongue every 6 hours as needed. acetaminophen 300 mg-caffeine 40 mg-butalbital 50 mg (FIORICET) per capsule Take 1 capsule by mouth every 4 hours as needed. valACYclovir (VALTREX) 1 gram Take one tablet by mouth as needed for fever blisters. fluticasone (FLONASE) 50 mcg/actuation nasal spray Use 1 [place] in each nostril once daily as needed. simethicone (GAS-X ORAL) Take 2 tablets by mouth as needed. loperamide HCl (IMODIUM) 2 mg tab Take 2 mg by mouth as needed. diphenhydramine HCl (BENADRYL ORAL) Take 1 tablet by mouth as needed. cetirizine (ZYRTEC) 10 mg tablet Take 10 mg by mouth once daily as needed. acetaminophen (TYLENOL) 500 mg tablet Take 500 mg by mouth every 8 hours as needed. aspirin, enteric coated (ASPIRIN, ENTERIC COATED) 81 mg EC tablet TAKE ONE TABLET BY MOUTH EVERY DAY WITH A MEAL REVIEW OF SYSTEMS: GENERAL: No fever, night sweats, weight loss or malaise. All other reviewed and negative other than HPI. PHYSICAL EXAMINATION: VITAL SIGNS: BP 125/64 Pulse 54 Temp (Src) 97.4 (Temporal) Wt 185 lb (83.9kg) SpO2 97% GENERAL APPEARANCE: Well appearing, in no acute distress, alert and oriented x3, well-hydrated, well nourished. I spent a total of 35 minutes on the date of the service which included preparing to see the patient, [id number] patient care, completing clinical documentation, obtaining and/or reviewing sepa (more content not included)...[facility]09-18-2023 Telephone encounter Note* Telephone Encounter - Fernanda Arroyo - 06/30/2023 3:19 PM EDT Patient returned clinic call. Informed of message per notes below. Patient verbalized understandingand voiced no further questions. Pt stated cant come at 745 because [place]s coming from [place] she needs 11am or later. [id number] Miscellaneous Notes* Telephone Encounter - Fernanda Arroyo - 06/30/2023 3:19 PM EDT Patient returned clinic call. Informed of message per notes below. Patient verbalized understandingand voiced no further questions. Pt stated cant come at 745 because shes coming from [place] she needs 11am or later. * Telephone Encounter - Zulay Jefferson RN - 06/30/2023 2:53 PM EDT Attempted to contact pt No answer Message left asking for pt to call office back, if pt does call back can you please relay message Patrick Wu MD 43 minutes ago (2:09 PM) Please let her know labs were ok. Not a lot of inflammation. Xrays showed one questionable erosion (rheumatoid damage) but overall were ok. Please offer her 745am on August 25 at [place] if sheis willing * Telephone Encounter - Patrick Wu MD - 06/30/2023 2:08 PM EDT Please let her know labs were ok. Not a lot of inflammation. Xrays showed one questionable erosion (rheumatoid damage) but overall were ok. Please offer her 745am on August 25 at [place] if sheis willing * Telephone Encounter - Patrick Wu MD - 06/20/2023 9:09 AM EDT Please arrange for September 01 f2f in [place] (held template but no longer taking vacation). Thanks! documented in this [id number] Telephone encounter Note* Telephone Encounter - Zulay Jefferson RN - 06/30/2023 2:53 PM EDT Attempted to contact pt No answer Message left asking for pt to call office back, if pt does call back can you please relay message Patrick Wu MD 43 minutes ago (2:09 PM) Please let her know labs were ok. Not a lot of inflammation. Xrays showed one questionable erosion (rheumatoid damage) but overall were ok. Please offer her 745am on August 25 at [place] if sheis willing [facility] Work Phone: [phone] Telephone encounter Note* Telephone Encounter - Patrick Wu MD - 06/30/2023 2:08 PM EDT Please let her know labs were ok. Not a lot of inflammation. Xrays showed one questionable erosion (rheumatoid damage) but overall were ok. Please offer her 745am on August 25 at [place] if sheis willing [id number] History of Present illness Narrative* Handy Bates MD - 06/30/2023 1:43 PM EDT HISTORY OF PRESENT ILLNESS: Lisbeth Craven is a 63 year old female history colon cancer found onbasis of bleeding. She is on ac due to prior PR. 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 Here for follow up, CEA rising. Scans reviewed, negative. Colonoscopy planned in November 2023 CLINICAL IMPRESSION: Stage I colon cancer resected. Rising CEA, reviewed other possible reasons for this, including DM, inflammation RECOMMENDATION/PLAN: 1. CEA in 4 months 2. Follow up after that 3. Otherwise no further surveillance needed re the stage I colon cancer Written and verbal health teaching given to patient, patient verbalizes understanding and agrees with treatment plan. PAST MEDICAL HISTORY Diagnosis Date Diabetes mellitus (HCC) Erythromelalgia (HCC) Fibromyalgia GERD (gastroesophageal reflux disease) Heart attack (HCC) Kidney disease Neuropathy Osteopenia Rheumatoid arthritis (HCC) PAST SURGICAL HISTORY Procedure Laterality Date APPENDECTOMY BACK SURGERY HX x 2 NECK SURGERY HX PAST SURGICAL HISTORY OF Ganglion Cyst removed from wrists & one under left breast PAST SURGICAL HISTORY OF Heart Stent x 3 PAST SURGICAL HISTORY OF Colon Resection PAST SURGICAL HISTORY OF [place]end[place] surgery both arms REMOVAL GALLBLADDER TONSILLECTOMY HX FAMILY HISTORY Problem Relation Age of Onset Heart Father Diabetes Father Hypertension Father Lung Cancer Father Heart Brother Heart Brother Social History Tobacco Use Smoking status: Former Packs/day: 1.00 Years: 15.00 Additional pack years: 0.00 Total pack years: 15.00 Types: Cigarettes Quit date: 1992 Years since quittin.7 Smokeless tobacco: Never ALLERGIES: ALLERGIES Allergen Reactions Adhesive Rash Hydrochlorothiazide Unknown Hydrocodone Itching Iron Diarrhea Ivp Dye [Iodine] Rash, Shortness of Breath Levaquin [Levofloxa* Shortness of Breath Methylprednisone Mental Status Change Percocet [Oxycodone* Itching Sulfa (Sulfonamide * Rash Victoza [Liraglutid* GI Upset, Vomiting CURRENT OUTPATIENT MEDICATIONS: empagliflozin (JARDIANCE) 25 mg tablet Take 25 mg by mouth once daily. isosorbide mononitrate ER (IMDUR) 30 mg 24 hr tablet Take 30 mg by mouth once daily. levothyroxine (SYNTHROID) 88 mcg tablet Take 88 mcg by mouth once daily. predniSONE (DELTASONE) 5 mg tablet Take 4 mg by mouth once daily. clopidogrel (PLAVIX) 75 mg tablet Take 75 mg by mouth once daily. carvedilol (COREG) 3.125 mg tablet Take 3.125 mg by mouth twice daily. venlafaxine (EFFEXOR) 75 mg tablet Take 75 mg by mouth once daily. venlafaxine ER (EFFEXOR XR) 150 mg 24 hr capsule Take 150 mg by mouth once daily. glipiZIDE (GLUCOTROL) 10 mg tablet Take 10 mg by mouth twice daily. hydrOXYchloroQUINE (PLAQUENIL) 200 mg tablet Take 400 mg by mouth once daily. amLODIPine (NORVASC) 5 mg tablet Take 10 mg by mouth once daily. vitamin b complex tab Take 1 tablet by mouth once daily. lisinopril (ZESTRIL) 5 mg tablet Take 5 mg by mouth once daily. famotidine (PEPCID) 40 mg tablet Take 40 mg by mouth once daily. BIOTIN ORAL Take 1 tablet by mouth once daily. rosuvastatin (CRESTOR) 10 mg tablet Take 10 mg by mouth daily at bedtime. ondansetron (ZOFRAN) 8 mg tablet Take 8 mg by mouth every 8 hours as needed for nausea/vomiting. hyoscyamine sulfate 0.125 mg ODT Dissolve 0.125 mg under the tongue every 6 hours as needed. acetaminophen 300 mg-caffeine 40 mg-butalbital 50 mg (FIORICET) per capsule Take 1 capsule by mouthevery 4 hours as needed. valACYclovir (VALTREX) 1 gram Take one tablet by mouth as needed for fever blisters. fluticasone (FLONASE) 50 mcg/actuation nasal spray Use 1 [place] in each nostril once daily as needed. simethicone (GAS-X ORAL) Take 2 tablets by mouth as needed. loperamide HCl (IMODIUM) 2 mg tab Take 2 mg by mouth as needed. diphenhydramine HCl (BENADRYL ORAL) Take 1 tablet by mouth as needed. cetirizine (ZYRTEC) 10 mg tablet Take 10 mg by mouth once daily as needed. acetaminophen (TYLENOL) 500 mg tablet Take 500 mg by mouth every 8 hours as needed. aspirin, enteric coated (ASPIRIN, ENTERIC COATED) 81 mg EC tablet TAKE ONE TABLET BY MOUTH EVERY DAY WITH A MEAL REVIEW OF SYSTEMS: GENERAL: No fever, night sweats, weight loss or malaise. All other reviewed and negative other than HPI. PHYSICAL EXAMINATION: VITAL SIGNS: BP 125/64 Pulse 54 Temp (Src) 97.4 (Temporal) Wt 185 lb (83.9kg) SpO2 97% GENERAL APPEARANCE: Well appearing, in no acute distress, alert and oriented x3, well-hydrated, well nourished. I spent a total of 35 minutes on the date of the service which included preparing to see the patient, [id number] patient care, completing clinical documentation, obtaining and/or reviewing separately obtained history, counseling and educating the patient/family/caregiver, ordering medications, daniele ts, or procedures, independently interpreting results (not separately reported), and communicating results to the patient/family/caregiver. Electronically Signed: Handy Bates MD June 30, 2023 1:43 PM [facility] Telephone encounter Note * Telephone Encounter - Rik Harris RN - 06/25/2023 11:09 AM EDT Images from the original note were not included. Belle Conway 1 minute ago (11:08 AM) [facility], needs cardiac rehab order signed by Physician not ERLIN, then will fax ov note, testing to [phone] [facility] [id number] Miscellaneous Notes* Telephone Encounter - Rik Harris RN - 06/25/2023 11:09 AM EDT Images from the original note were not included. Belle Conway 1 minute ago (11:08 AM) [facility], needs cardiac rehab order signed by Physician not ERLIN, then will fax ov note, testing to [phone] * Telephone Encounter - Rik Harris RN - 06/25/2023 10:49 AM EDT Patient in office today to see Bertha. Requesting update on cardiac rehab order. Will have national secretary follow up on this. * Telephone Encounter - OSN Alvarado CNP - 06/06/2023 4:50 PM EDT Please contact [facility] and ask what order is needed for cardiac rehab. Unable to locate an external cardiac rehab order in our system. documented in this encounterSOhioHealth Mansfield [id number] Telephone encounter Note* Telephone Encounter - Rik Harris RN - 06/25/2023 10:49 AM EDT Patient in office today to see Bertha. Requesting update on cardiac rehab order. Will have national secretary follow up on this. [facility] [id number] History of Present illness Narrative* Bertha Patricio PA-C - 06/25/2023 9:30 AM EDT [facility] Cardiology Note DATE of SERVICE:06/25/23 TIME of SERVICE: 10:09 AM Chief Complaint: Chief Complaint Patient presents with Hospital Follow-up History of PresentIllness: Lisbeth Craven is a 63 y.o. female Known to Dr. Santos with a history of diabetes, chronic kidney disease, rheumatoid arthritis, fibromyalgia, heart catheterization in February 2022 where she received a stent to the right coronary artery.She was seen on an urgent basis with Dr. Santos June 05 due to recurrent chest pain. She was setup for heart catheterization that was performed on June 06 that noted her prior stents to be patent. She had obstructive disease in the distal circumflex/OM with right to left collateral. She had mild disease otherwise. She was continued on medical therapy. Her Coreg and Crestor doses were increased. She was also referred to cardiac rehab. Here in the office she states she continues to have 2-3 episodes of chest discomfort per week. Theycan occur either with activity or at rest. Typical duration is several minutes at a time. EKG todaynotes a junctional rhythm with a heart rate around 55. Interestingly previously she had had sinus bradycardia with a heart rate of 54 but clear P waves. Did review the case and EKG with Dr. Santos. Past Medical History: Past Medical History: Diagnosis Date Chronic kidney disease Colon cancer (HCC) Coronary artery disease Hypertension PR (myocardial infarction) (CMS/HCC) (HCC) Past Surgical History Past Surgical History: Procedure Laterality Date CARDIAC CATHETERIZATION N/A 06/06/2023 Performed by Tyrel Miles MD at [facility] Cardiac Cath/EP Lab Family History Family History Problem Relation Name Age of Onset Heart attack Father Social History Social History Tobacco Use Smoking status: Former Types: Cigarettes Substance Use Topics Alcohol use: Never Drug use: Never Allergies: Allergies Allergen Reactions Hydrochlorothiazide Cannot take capsule. Tolerates tablet Iodides Levofloxacin Liraglutide Methylprednisolone Medications: Current Outpatient Medications: amLODIPine (Norvasc) 5 MG tablet, Take 1 tablet (5 mg) by mouth daily. (Patient taking differently:Take 10 mg by mouth 2 times daily.), Disp: 90 tablet, Rfl: 3 aspirin 81 MG EC tablet, Take 1 tablet by mouth every morning., Disp: , Rfl: b complex vitamins capsule, Take 1 capsule by mouth in the morning., Disp: , Rfl: ybbzycpqwn-jeoxohyygxmeh-jccduvdi 50-325-40 MG tablet, Take 1 tablet by mouth every 4 hours as needed for headaches., Disp: , Rfl: clopidogrel (Plavix) 75 MG tablet, Take 75 mg by mouth in the morning., Disp: , Rfl: empagliflozin (Jardiance) 25 MG, Take by mouth., Disp: , Rfl: Euthyrox 88 MCG tablet, Take 88 mcg by mouth in the morning., Disp: , Rfl: famotidine (Pepcid) 40 MG tablet, Take 40 mg by mouth in the morning., Disp: , Rfl: glipiZIDE (Glucotrol) 10 MG tablet, Take 10 mg by mouth in the morning and 10 mg in the evening., Disp: , Rfl: hydroxychloroquine (Plaquenil) 200 MG tablet, Take by mouth., Disp: , Rfl: hyoscyamine (Levsin) 0.125 MG SL tablet, Take 0.125 mg by mouth every 4 hours as needed for cramping., Disp: , Rfl: lisinopril 5 MG tablet, Take 5 mg by mouth in the morning., Disp: , Rfl: ondansetron ODT (Zofran-ODT) 8 MG disintegrating tablet, Take 8 mg by mouth every 8 hours as neededfor nausea or vomiting., Disp: , Rfl: predniSONE (Deltasone) 5 MG tablet, Take 5 mg by mouth in the morning., Disp: , Rfl: rosuvastatin (Crestor) 20 MG tablet, Take 1 tablet (20 mg) by mouth daily., Disp: 90 tablet, Rfl: 1 venlafaxine (Effexor) 100 MG tablet, Take 225 mg by mouth daily., Disp: , Rfl: carvedilol (Coreg) 3.125 MG tablet, Take 1 tablet (3.125 mg) by mouth in the morning and 1 tablet (3.125 mg) in the evening. Take with meals., Disp: 60 tablet, Rfl: 3 cetirizine (ZyrTEC) 5 MG tablet, Take 10 mg by mouth in the morning., Disp: , Rfl: fluticasone (Flonase Sensimist) 27.5 MCG/SPRAY nasal spray, Administer 2 sprays into each nostril in the morning., Disp: , Rfl: isosorbide mononitrate ER (Imdur) 30 MG 24 hr tablet, Take 30 mg by mouth daily. Do not crush or chew., Disp: , Rfl: loperamide (Imodium) 2 MG capsule, Take 2 mg by mouth as needed for diarrhea., Disp: , Rfl: nitroglycerin (Nitrostat) 0.4 MG SL tablet, Place 1 tablet (0.4 mg) under the tongue every 5 minutes as needed for chest pain. Max 3 doses. If still having chest pain after 1st dose, call 911, Disp: 25 tablet, Rfl: 3 simethicone (Mylicon) 125 MG chewable tablet, Chew every 6 hours as needed for flatulence., Disp: ,Rfl: valACYclovir (Valtrex) 1 g tablet, Take by mouth 2 times daily. PRN, Disp: , Rfl: Review of Systems: Review of Systems Constitutional: Negative for chills, diaphoresis and fever. HENT: Negative for congestion. Eyes: Negative for visual disturbance. Respiratory: Positive for chest tightness. Negative for shortness of breath. Cardiovascular: Negative for chest pain and palpitations. Gastrointestinal: Negative for abdominal pain, constipation, diarrhea and nausea. Endocrine: Negative for cold intolerance and heat intolerance. Genitourinary: Negative for dysuria and hematuria. Musculoskeletal: Negative for arthralgias. Skin: Negative for rash. Neurological: Negative for dizziness and syncope. Physical Examination: Vitals: Vitals: 06/25/23 0929 BP: 120/70 BP Location: Left arm Patient Position: Sitting BP Cuff Size: Large adult Pulse: 56 Resp: 16 SpO2: 96% Weight: 184 lb 3.2 oz (83.6 kg) Height: 5' 8 (1.727 m) Body mass index is 28.01 kg/m . Physical Exam Constitutional: General: She is not in acute distress. Appearance: She is not diaphoretic. HENT: Head: Normocephalic. Eyes: General: Right eye: No discharge. Left eye: No discharge. Conjunctiva/sclera: Conjunctivae normal. Cardiovascular: Rate and Rhythm: Normal rate and regular rhythm. Pulmonary: Breath sounds: No wheezing or rales. Abdominal: General: Bowel sounds are normal. Palpations: Abdomen is soft. Musculoskeletal: Right lower leg: No edema. Left lower leg: No edema. Skin: General: Skin is warm and dry. Findings: No erythema or rash. Neurological: Mental Status: She is oriented to person, place, and time. Psychiatric: Mood and Affect: Mood normal. Laboratory Tests: Lab Results Component Value Date WBC 11.3 (H) 06/05/2023 HGB 14.2 06/05/2023 HCT 44.2 06/05/2023 MCV 85.8 06/05/2023 PLT 272 06/05/2023 Lab Results Component Value Date GLUCOSE 187 (H) 06/05/2023 CALCIUM 9.3 06/05/2023 NA 137 06/05/2023 K 4.9 06/05/2023 CO2 19 (L) 06/05/2023 CL 105 06/05/2023 BUN 31 (H) 06/05/2023 CREATININE 1.33 (H) 06/05/2023 @LASTCMP@ Lab Results Component Value Date CHOL 170 06/06/2023 Lab Results Component Value Date TRIG 171 (H) 06/06/2023 Lab Results Component Value Date HDL 47 06/06/2023 Lab Results Component Value Date LDLCALC 89 06/06/2023 No components found for: LVEF, LVEFMODE Left heart catheterization 06/06/23 Conclusion 63 yo F with a prior Hx of CAD s/p 3 stents to the RCA in 02/2022 who presented to the outpatient cardiology office with complaints of worsening chest pain symptoms over the last couple of weeks. Shewas sent to the ED for expedited work up. Access: R radial artery was cannulated for the procedure and a Vasc band was placed at the end for hemostasis. Coronary Angiography: It is a R dominant system. The left main is normal. The LAD has 2 diagonals. There is mild disease in the LAD with up to 30% lesion in the proximal segment. D1 is small. D2 is moderate size branching vessel without any significant disease. The LCx has 3 obtuse marginal vessels. There is mild disease in the mid Lcx up to 30%. The distal Lcx is chronically totally or subtotally occluded. The distal vessels fill from robust R to L collaterals. The RCA is moderate caliber. Prior RCA stents extending from the proximal to distal RCA are patent with minimal in-stent restenosis. No significant disease in the RPL and RPDA. Hemodynamic Results: LVEDP is 15 mm Hg; there is no aortic valve gradient. Impressions: Patent RCA stents Obstructive disease in the Dital Lcx/OM with R to L collateral Mild disease otherwise Mildly elevated filling pressures No aortic valve gradient Recommendations: Risk factor surveillance and modification. Aggressive medical management of CAD. Up titration of anti-anginal medications. Rest of the care per inpatient cardiology consult team. Assessment and Plan: Coronary artery disease with previous stenting to the right coronary artery in February 2022. Recent heart catheterization June 06 noted patent stents. She did have obstructive disease in the distal circumflex /OM with recommended ongoing antianginal treatment. Her carvedilol dose was increased, however today she has a junctional rhythm noted on EKG. After review with Dr. Santos, I am decreasing carvedilol back to 3.125 mg twice daily. I am adding Imdur 30 mg p.o. daily. She continues on a high dose of amlodipine 10 mg twice daily, aspirin, and Plavix. I will see her back in approximately 3 weeks to reassess. Hypertension. Blood pressure is well controlled. At this time she continues on carvedilol, which I am decreasing the dose, amlodipine, and low-dose lisinopril. If blood pressure increases by decreasing her carvedilol, lisinopril can be increased. Lipid status. Her Crestor dose was increased to 20 mg p.o. daily. Follow-up labs will be ordered after her next office visit. For follow-up she will be seen again in 6 months, sooner if any problems should arise. documented in this encounterSumma [id number] Telephone encounter Note* Telephone Encounter - Patrick Wu MD - 06/20/2023 9:09 AM EDT Please arrange for September 01 f2f in [place] (held template but no longer taking vacation). Thanks! [id number] Instructions* Patient Instructions* Patrick Wu MD - 06/09/2023 1:48 PM EDT Stay on pred 5mg (old pills) this week: Start jun 13 (Friday) 1mg pill x 4 (all 4 at once) every morning for June and July and September: 3mg (3x 1mg pills) every day October-: 2mg every day Hopefully plan: December-January 1mg daily Then Stop in february documented in this [id number] History of Present illness Narrative* Patrick Wu MD - 06/09/2023 12:59 PM EDT New Rheumatology Note CC: RA Referred by: Dr Cristel Valenzuela HPI: Lisbeth Craven is a 63 year old female here for evaluation of above complaint Was seeing Dr Fabien Wyman in [facility]; dx RA 2014; moved to [place] to be closed to family about 1 year ago. At presentation: hands locking/triggering. Flares of joint swelling and pain; migratory. No pattern. In wheelchair but today not normally. Pred 5mg and hcq. Saw eye in the last year. No nsaids bc of kidney dis. Tylenol not very helpful. Diclofenac gel not helpful. Doesn't remember how joint pains were when she weaned prendisone last. Noclear and regular MS. Intolerant- methotrexate; avoiding biologics bc of side effects Fibula fx- stepped off curb. Also broke other food. Colon ca dx earlier this year, surgery, lost 40 lbs. Stabilized. Monitoring, no chemo or radiation. Was just in hospital for RHC, going to start cardiac rehabs soon Accompanied by Angi mom whom she lives with PM/SHx: htn, CKD III; erythromelalgia (feet modified w lifestyle); neuropathy small fiber (skin biopsy proven); cad s/p PR (3 stents); DMII; gerd; osteopenia; s/p back surgery x 2; colon cancer stage1-2 s/p surgery; s/p ulnar transposition surgery SocialHx: no tob; no etoh; not working (disability applied but denied) FamilyHx: grandmother w RA Allergies: updated in epic ROS: all ten systems are reviewed and negative except for pertinent positive and negative stated inthe HPI Physical Exam Constitutional: General: She is not in acute distress. HENT: Head: Normocephalic and atraumatic. Eyes: Conjunctiva/sclera: Conjunctivae normal. Cardiovascular: Rate and Rhythm: Normal rate and regular rhythm. Heart sounds: Normal heart sounds. No murmur heard. No friction rub. No gallop. Pulmonary: Effort: Pulmonary effort is normal. Breath sounds: Normal breath sounds. Abdominal: General: Bowel sounds are normal. Palpations: Abdomen is soft. Tenderness: There is no abdominal tenderness. Musculoskeletal: Right shoulder: Normal. Left shoulder: Normal. Right elbow: Normal. Left elbow: Normal. Right wrist: Normal. Left wrist: Normal. Right hand: No swelling, tenderness or bony tenderness. Decreased range of motion. Left hand: No swelling, tenderness or bony tenderness. Decreased range of motion. Right hip: Normal. Left hip: Normal. Right knee: Normal. Left knee: Normal. Right ankle: No swelling. No tenderness. Right Achilles Tendon: Tenderness present. No defects. Left ankle: Normal. Right foot: Normal. Left foot: Normal. Comments: +prayer sign Waxy thickening to toes and very distal fingers Heberden's and Mt's nodes Lymphadenopathy: Cervical: No cervical adenopathy. Skin: General: Skin is warm and dry. Findings: No rash. Neurological: Mental Status: She is alert and oriented to person, place, and time. Gait: Gait is intact. Psychiatric: Mood and Affect: Mood and affect normal. Cognition and Memory: Memory normal. Labs: Media mgr: 12/05 Wbc 9.9 Hgb 8-6 (during admission) - now 14 in 06/04 Plt 355 Inr 1.1 Cr 1.0- 1.33 in 06/04 A1c 5.9 Tibc 3.26 wnl Ferritin 139 (wnl) Iron 27 (L) Lfts ok except albumin 2.8 Tsh 0.67 wnl Assessment/Plan: Lisbeth Craven is a 63 year old female with reported rheumatoid arthritis; hand osteoarthritis #reported RA- exam is ok today -check films and serologies -continue plaquenil 400mg daily; she has had eye check this year; discussed risks of duration and with her CKD -discussed risks w steroids: slowly cut dose down from 5mg daily (several years): cut to 4mg daily x 2 months, then 3mg daily x 2 months, then 2mg daily x 2 months, then 1mg daily x 2 months before stopping; assess if worse pains #osteopenia, menopause; has had two (?3?) fibular fx -senior care steroid use -check dexa, last was osteopenia, few years ago #FMS- on ssri, playing a role in her pain #neuropathy- small fiber from ?- on SSRI, intolerant gabapentin #deconditioning- playing a role in her pain #erythromelalgia- on SSRI w pcp -doubt there is Raynauds by history; her exam today with some erythema in periungual areas -check autoimmune panel #CKD 3- inc risk with hcq use, discussed importance of eye checks regularly -discussed risks and benefits to plan; answered all questions Rtc in 2-3 months or prn Patrick Wu MD documented in this [id number] Telephone encounter Note* Telephone Encounter - SON Alvarado CNP - 06/06/2023 4:50 PM EDT Please contact [facility] and ask what order is needed for cardiac rehab. Unable to locate an external cardiac rehab order in our system. [facility] [id number] NoteName: Lisbeth Craven Date of : 1960 Date of Admission: 06/05/2023 Date of Discharge: 06/06/2023 Admitting physician: Satish Santos MD Discharge Attending: Talisha Cardozo APRN - FARE ENFORCEMENT OFFICER, Satish Santos MD Primary Care Physician: Cristel Valenzuela Review of Systems: Review of Systems Constitutional: Negative for activity change, diaphoresis and fever. HENT: Negative for nosebleeds. Eyes: Negative for discharge and visual disturbance. Respiratory: Negative for cough, shortness of breath and wheezing. Cardiovascular: Negative for chest pain, palpitations and leg swelling. Gastrointestinal: Negative for abdominal pain and blood in stool. Endocrine: Negative for cold intolerance and heat intolerance. Genitourinary: Negative for hematuria. Musculoskeletal: Negative for gait problem and myalgias. Neurological: Negative for dizziness, syncope, weakness and light-headedness. Neuropathy Hematological: Does not bruise/bleed easily. Psychiatric/Behavioral: Negative for dysphoric mood. Physical Exam: Physical Exam Constitutional: Appearance: Normal appearance. HENT: Head: Normocephalic. Eyes: General: No scleral icterus. Right eye: No discharge. Left eye: No discharge. Cardiovascular: Rate and Rhythm: Normal rate and regular rhythm. Pulses: Normal pulses. Heart sounds: Normal heart sounds. No murmur heard. Comments: Right radial cath site band present, good cap refill Pulmonary: Effort: Pulmonary effort is normal. Breath sounds: Normal breath sounds. No wheezing, rhonchi or rales. Abdominal: General: Abdomen is flat. Palpations: Abdomen is soft. Musculoskeletal: General: Normal range of motion. Cervical back: Normal range of motion. Right lower leg: No edema. Left lower leg: No edema. Skin: General: Skin is warm and dry. Capillary Refill: Capillary refill takes less than 2 seconds. Neurological: Mental Status: She is alert and oriented to person, place, and time. Psychiatric: Mood and Affect: Mood normal. Vitals: 06/05/23 2251 06/06/23 0244 06/06/23 0711 06/06/23 1007 BP: (!) 169/70 (!) 164/72 (!) 145/72 (!) 156/73 BP Location: Right arm Left arm Patient Position: Lying Lying Pulse: 63 69 79 76 Resp: 20 17 18 18 Temp: 36.1 ?C (97 ?F) 36.5 ?C (97.7 ?F) 37.6 ?C (99.6 ?F) 36.6 ?C (97.8 ?F) TempSrc: Temporal Temporal Temporal Temporal SpO2: 93% 96% 96% 95% Reason for Admission: Unstable angina Consultants: None HOSPITAL ADMISSION PROBLEM LIST: Patient Active Problem List Diagnosis Chronic kidney disease Coronary artery disease Hypertension Chest discomfort Chest pain Procedures: Cath Summary 06/06/23: Access: R radial artery was cannulated for the procedure and a Vasc band was placed at the end for hemostasis. Coronary Angiography: It is a R dominant system. The left main is normal. The LAD has 2 diagonals. There is mild disease in the LAD with up to 30% lesion in the proximal segment. D1 is small. D2 is moderate size branching vessel without any significant disease. The LCx has 3 obtuse marginal vessels. There is mild disease in the mid Lcx up to 30%. The distal Lcx is chronically totally or subtotally occluded. The distal vessels fill from robust R to L collaterals. The RCA is moderate caliber. Prior RCA stents extending from the proximal to distal RCA are patent with minimal in-stent restenosis. No significant disease in the RPL and RPDA. Hemodynamic Results: LVEDP is 15 mm Hg; there is no aortic valve gradient. Impressions: Patent RCA stents Obstructive disease in the Dital Lcx/OM with R to L collateral Mild disease otherwise Mildly elevated filling pressures No aortic valve gradient Recommendations: Risk factor surveillance and modification. Aggressive medical management of CAD. Up titration of anti-anginal medications. Rest of the care per inpatient cardiology consult team. HOSPITAL COURSE : Lisbeth Craven 63-year-old female known to Dr. Santos who presented to the hospital after being seen in the office for an urgent visit due to chest pain she has a history of type 2 diabetes, chronic kidney disease, rheumatoid arthritis, fibromyalgia and coronary artery disease. Her last cardiac catheterization was March 02, 2022 at [facility] in [place]. According to that report her left main was normal, she had nonobstructive atherosclerosis in the LAD, 40 to 50% stenosis in circumflex and a subtotal occlusion to's marginal branches. The culprit vessel was a 99% mid RCA lesion which was stented. Her EF was assessed at 50%. She presented to the office with 2 weeks of increasing chest pain described as a tightness or heavy feeling retrosternal to the left, multiple episodes off and on during the day. It was relieved with sublingual nitroglycerin. The episodes were lasting approximately 20 minutes and rated at a 6-7 out of 10 in severity. They were accompanied b (more content not included)...[facility] 06-06-2023 Hospital Discharge instructions* Discharge Instructions* Talisha Luz Elena Cardozo APRN - FARE ENFORCEMENT OFFICER - 06/06/2023 2:44 PM EDT Call your doctor with any medication questions or if you notice any side effects from your medications. If you are unable to fill your medications, please call your [facility] immediately. The office number is located with your follow-up appointment information. Call your doctor if any redness or drainage from the wound site. DO NOT stop taking your medication unless instructed to do so by your doctor. Read the drug information material that were given to you and take medications as instructed by your doctor. New drugs may have been added to your medications, that will strengthen your heart and prevent re-stenosis of the coronary arteries. Drink 6 glasses of water (8 ounces each) over the next 24 hours. Water helps clear the dye from your body. No alcoholic beverages for 24 hours. It may interfere with healing. No exercise or sex for 5 days. Call 911 for chest pain, arm pain, nausea, neck pain, dizziness or unusual sweating AND your pain has not relieved with 2 doses of Nitroglycerin. Call your doctor if a lump at the puncture site enlarges or is larger than marble size. Call your doctor for numbness, tingling, or swelling of the fingers, hand or wrist. Call your doctor for increased area or bruising with discoloration extending into the arm. If bleeding occurs, hold pressure with your thumb against the puncture site and your finger againstthe back of the wrist for 10 minutes, if BLEEDING continues CALL 911. OK to shower. No tub baths, swimming pools or hot tub soaking for three days. Wash site daily with soap and water, dry gently. The healing wound should remain soft and dry. Keepsite clean and dry, no soaking of wrist for three days (no cleaning or dish washing). Remove band aid the day after procedure and leave open to air. No bending of affected wrist for 24 hours. DO NOT lift more than three pounds for 3-5 days[address] driving for 24 hours. PLEASE CALL YOUR HEART DOCTOR IF YOU CANNOT GET YOUR MEDICATIONS. THE NUMBER IS LISTED WITH YOUR FOLLOW-UP APPOINTMENT. Procedure Sedation Instructions If you have received sedation: you must have someone drive you home You should not drive a car, operate machinery, drink alcohol or perform any activity that requires alertness for the rest of the day. The effects of the sedative should be gone by tomorrow. documented in this [facility]08[facility] Hospital course Narrative* SON Alvarado CNP - 06/06/2023 1:59 PM EDT Name: Lisbeth Craven Date of : 1960 Date of Admission: 06/05/2023 Date of Discharge: 06/06/2023 Admitting physician: Satish Santos MD Discharge Attending: SON Alvarado CNP, Roger Chaffee MD Primary Care Physician: Cristel Valenzuela Review of Systems: Review of Systems Constitutional: Negative for activity change, diaphoresis and fever. HENT: Negative for nosebleeds. Eyes: Negative for discharge and visual disturbance. Respiratory: Negative for cough, shortness of breath and wheezing. Cardiovascular: Negative for chest pain, palpitations and leg swelling. Gastrointestinal: Negative for abdominal pain and blood in stool. Endocrine: Negative for cold intolerance and heat intolerance. Genitourinary: Negative for hematuria. Musculoskeletal: Negative for gait problem and myalgias. Neurological: Negative for dizziness, syncope, weakness and light-headedness. Neuropathy Hematological: Does not bruise/bleed easily. Psychiatric/Behavioral: Negative for dysphoric mood. Physical Exam: Physical Exam Constitutional: Appearance: Normal appearance. HENT: Head: Normocephalic. Eyes: General: No scleral icterus. Right eye: No discharge. Left eye: No discharge. Cardiovascular: Rate and Rhythm: Normal rate and regular rhythm. Pulses: Normal pulses. Heart sounds: Normal heart sounds. No murmur heard. Comments: Right radial cath site band present, good cap refill Pulmonary: Effort: Pulmonary effort is normal. Breath sounds: Normal breath sounds. No wheezing, rhonchi or rales. Abdominal: General: Abdomen is flat. Palpations: Abdomen is soft. Musculoskeletal: General: Normal range of motion. Cervical back: Normal range of motion. Right lower leg: No edema. Left lower leg: No edema. Skin: General: Skin is warm and dry. Capillary Refill: Capillary refill takes less than 2 seconds. Neurological: Mental Status: She is alert and oriented to person, place, and time. Psychiatric: Mood and Affect: Mood normal. Vitals: 06/05/23 2251 06/06/23 0244 06/06/23 0711 06/06/23 1007 BP: (!) 169/70 (!) 164/72 (!) 145/72 (!) 156/73 BP Location: Right arm Left arm Patient Position: Lying Lying Pulse: 63 69 79 76 Resp: 20 17 18 18 Temp: 36.1 C (97 F) 36.5 C (97.7 F) 37.6 C (99.6 F) 36.6 C (97.8 F) TempSrc: Temporal Temporal Temporal Temporal SpO2: 93% 96% 96% 95% Reason for Admission: Unstable angina Consultants: None HOSPITAL ADMISSION PROBLEM LIST: Patient Active Problem List Diagnosis Chronic kidney disease Coronary artery disease Hypertension Chest discomfort Chest pain Procedures: Cath Summary 06/06/23: Access: R radial artery was cannulated for the procedure and a Vasc band was placed at the end for hemostasis. Coronary Angiography: It is a R dominant system. The left main is normal. The LAD has 2 diagonals. There is mild disease in the LAD with up to 30% lesion in the proximal segment. D1 is small. D2 is moderate size branching vessel without any significant disease. The LCx has 3 obtuse marginal vessels. There is mild disease in the mid Lcx up to 30%. The distal Lcx is chronically totally or subtotally occluded. The distal vessels fill from robust R to L collaterals. The RCA is moderate caliber. Prior RCA stents extending from the proximal to distal RCA are patent with minimal in-stent restenosis. No significant disease in the RPL and RPDA. Hemodynamic Results: LVEDP is 15 mm Hg; there is no aortic valve gradient. Impressions: Patent RCA stents Obstructive disease in the Dital Lcx/OM with R to L collateral Mild disease otherwise Mildly elevated filling pressures No aortic valve gradient Recommendations: Risk factor surveillance and modification. Aggressive medical management of CAD. Up titration of anti-anginal medications. Rest of the care per inpatient cardiology consult team. HOSPITAL COURSE : Lisbeth Craven 63-year-old female known to Dr. Santos who presented to the hospital after being seen in the office for an urgent visit due to chest pain she has a history of type 2 diabetes, chronic kidney disease, rheumatoid arthritis, fibromyalgia and coronary artery disease. Her last cardiac ca theterization was March 02, 2022 at [facility] in [place]. According to that report her left main was normal, she had nonobstructive atherosclerosis in the LAD, 40 to 50% stenosis in circumflex and a subtotal occlusion to's marginal branches. The culprit vessel was a 99% mid RCA lesion which was stented. Her EF was assessed at 50%. She presented to the office with 2 weeks of increasing chest pain described as a tightness or heavyfeeling retrosternal to the left, multiple episodes off and on during the day. It was relieved withsublingual nitroglycerin. The episodes were lasting approximately 20 minutes and rated at a 6-7 outof 10 in severity. They were accompanied by nausea and diaphoresis. They occurred randomly necessarily related to exertion. Her EKG showed sinus rhythm with first-degree AV block, right bundle branchblock with anterior fascicular block, left atrial enlargement, and Q waves inferiorly suggesting previous inferior infarct and very poor R wave progression. Troponin was normal. Labs reveal normal troponin, hemoglobin A1c 7.7%, mild leukocytosis of 11.3, and BUN of 31 creatinine 1.33. Her lipid panel showed an LDL cholesterol of 89. Cardiac catheterization was ordered and she was monitored in theCDU overnight. Due to her contrast allergy, she was premedicated with steroids, benadryl and pepcid. She also had low GFR so was prehydrated. Cardiac cath showed patent RCA stent, obstructive diseasein distal CFX and OM with R to L collateral, mild disease otherwise. Plan to uptitrate coreg to 6.25mg for angina and HTN, increase rosuvastatin to 20mg and referred to cardiac rehab. She was counseled to attempt 3 hours a week of exercise. Discussed importance of control of diabetes. She recently started on jardiance and will follow with primary physician. Discussed post cath wrist instructions. Last Labs: Lab Results Component Value Date WBC 11.3 (H) 06/05/2023 HGB 14.2 06/05/2023 HCT 44.2 06/05/2023 MCV 85.8 06/05/2023 PLT 272 06/05/2023 Lab Results Component Value Date NA 137 06/05/2023 K 4.9 06/05/2023 CL 105 06/05/2023 CO2 19 (L) 06/05/2023 BUN 31 (H) 06/05/2023 CREATININE 1.33 (H) 06/05/2023 GLUCOSE 187 (H) 06/05/2023 CALCIUM 9.3 06/05/2023 Lab Results Component Value Date CHOL 170 06/06/2023 Lab Results Component Value Date TRIG 171 (H) 06/06/2023 Lab Results Component Value Date HDL 47 06/06/2023 Lab Results Component Value Date LDLCALC 89 06/06/2023 Final Principle Discharge Diagnosis: CAD Secondary Discharge diagnosis: HTN Type II DM HLD Discharge Medications: Medication List CHANGE how you take these medications carvedilol 6.25 MG tablet Commonly known as: Coreg Take 1 tablet (6.25 mg) by mouth in the morning and 1 tablet (6.25 mg) in the evening. Take with meals. What changed: medication strength how much to take when to take this rosuvastatin 20 MG tablet Commonly known as: Crestor Take 1 tablet (20 mg) by mouth daily. What changed: medication strength how much to take CONTINUE taking these medications amLODIPine 5 MG tablet Commonly known as: Norvasc Take 1 tablet (5 mg) by mouth daily. aspirin 81 MG EC tablet b complex vitamins capsule wwhtuddxdm-iewqecxgqmyte-rsuvcgcg 50-325-40 MG tablet cetirizine 5 MG tablet Commonly known as: ZyrTEC clopidogrel 75 MG tablet Commonly known as: Plavix Euthyrox 88 MCG tablet Generic drug: levothyroxine famotidine 40 MG tablet Commonly known as: Pepcid Flonase Sensimist 27.5 MCG/SPRAY nasal spray Generic drug: fluticasone glipiZIDE 10 MG tablet Commonly known as: Glucotrol hydroxychloroquine 200 MG tablet Commonly known as: Plaquenil hyoscyamine 0.125 MG SL tablet Commonly known as: Levsin Jardiance 25 MG Generic drug: empagliflozin lisinopril 5 MG tablet loperamide 2 MG capsule Commonly known as: Imodium nitroglycerin 0.4 MG SL tablet Commonly known as: Nitrostat Place 1 tablet (0.4 mg) under the tongue every 5 minutes as needed for chest pain. Max 3 doses. If still having chest pain after 1st dose, call 911 ondansetron ODT 8 MG disintegrating tablet Commonly known as: Zofran-ODT predniSONE 5 MG tablet Commonly known as: Deltasone simethicone 125 MG chewable tablet Commonly known as: Mylicon valACYclovir 1 g tablet Commonly known as: Valtrex venlafaxine 100 MG tablet Commonly known as: Effexor Where to Get Your Medications These medications were sent to [facility] [address] [place], [place] [id number] [address] [address] carvedilol 6.25 MG tablet rosuvastatin 20 MG tablet ICD Registry Information/AMI Registry Information NYHA Functional Classification: Class I Medical Therapy Aspirin: Yes DAYAN/ARB: yes Statin: Yes Beta Kleber: Yes P2Y12 Inhibitors : Yes Aldosterone inhibitor :N/a Cardiac rehab Discussed with patient -will refer to [facility] BMI Classification: Overweight (BMI 25.0-29.9) DIET: A lowfat, low cholesterol diet was discussed with the patient. Discharge to Home Condition at Discharge: good Follow up with cardiology: Bertha Patricio Jun 25 9:30 am If any questions call [facility] office [phone] Total time spent for Discharge time greater than 31 minutes Electronically signed by Talisha Cardozo APRN-FARE ENFORCEMENT OFFICER documented in this [facility]08-25-2023 Miscellaneous Notes* Pre- Sedation Documentation - Maddi Mitchell MD - 06/06/2023 1:20 PM EDT Sedation Plan ASA class 3 - patient with severe systemic disease Mallampati class: II - soft palate, uvula, fauces visible. Sedation plan: moderate (conscious sedation) Risks, benefits, and alternatives discussed with patient. Plan discussed with attending. Immediate reassessment prior to sedation: Patient's status reviewed and vital signs assessed; acceptable to perform procedure and proceed to administer sedation as planned. Mdadi Mitchell MD * Care Plan - Jordan Navarro RN - 06/06/2023 11:49 AM EDT Problem: Pain - Adult Goal: Verbalizes/displays adequate comfort level or baseline comfort level Outcome: Progressing Problem: Safety - Adult Goal: Free from fall injury Outcome: Progressing Problem: Discharge Planning Goal: Discharge to home or other facility with appropriate resources Outcome: Progressing Problem: Chronic Conditions and Co-morbidities Goal: Patient's chronic conditions and co-morbidity symptoms are monitored and maintained or improved Outcome: Progressing The patient is Moderately Stable - Low risk of patient condition declining or worsening The patient's goals for the shift include CP free The clinical goals for the shift include CP 3/10 or less Over the shift, the patient did not make progress toward the following goals. Barriers to progression include n/a. Recommendations to address these barriers include n/a. * Care Plan - Daja Terrell RN - 06/05/2023 8:26 PM EDT Problem: Pain - Adult Goal: Verbalizes/displays adequate comfort level or baseline comfort level Outcome: Progressing Problem: Safety - Adult Goal: Free from fall injury Outcome: Progressing Problem: Discharge Planning Goal: Discharge to home or other facility with appropriate resources Outcome: Progressing Problem: Chronic Conditions and Co-morbidities Goal: Patient's chronic conditions and co-morbidity symptoms are monitored and maintained or improved Outcome: Progressing The patient is Moderately Stable - Low risk of patient condition declining or worsening The patient's goals for the shift include CP free The clinical goals for the shift include CP 3/10 or less * Care Coordination - Zulay Ellis RN - 06/05/2023 5:21 PM EDT Care Managment Initial Assessment Date: 06/05/2023 Patient Name: Lisbeth Craven : 1960 Patient Information Source of Information: Patient Cognition/Language: WFL - Within Functional Limits Permission given to speak with patient chemical sales representative/caregiver as indicated: Confirmation of Payer with patient/family: Yes Payer Name: [place]: No Confirmation of Primary Care Physician: Confirmed PCP Name: Dr. Valenzuela Seen in last 2 years?: Yes Primary Caregiver: Self If assistance needed, confirmed caregiver ready, willing and able to care for patient at discharge: Confirmed with: Living Arrangements Current Residence: House Number of Floors 2 Number of Entry Steps: Bed/Bath Levels: Both first floor Facility: Facility Name: Plan to Return: Yes Lives with: Parent Support Systems: Parent, Family members Activities of Daily Living Ambulation: Independent Bathing/Dressing: Independent Elimination/Continence/Toileting: Independent Feeding: Independent Who Assists with Activities of Daily Living: Instrumental Activities of Daily Living Prescription Coverage: Yes Pharmacy Used: [facility] [place] Medication Management: Independent Transportation/Shopping: Independent Transportation Mode: Car Needs Assistance with Transportation at Discharge: No Meal Preparation: Independent Laundry/Cleaning: Independent Finances/Bill Paying: Independent Communication: Independent Types of Care Services/Equipment Utilized Care Services: (none) Dialysis Type: NA Durable Medical Equipment: Cane, Walker Patient's Goal/Discharge Plan Patient expects to be discharged to: home Discharge Planning Actions: No needs identified Patient's Choice Rights and [employer] and Collaborative Relationships Disclosed as Indicated for Post-Acute Care: Interdisciplinary Team Engagement: Social Work Referral for: Additional Information: TCC met with patient in CDU. Patient in observation after cardiology appointment this morning. Patient has had intermittent chest pain daily for the last two weeks. Patient follows with cardiology, plan to have cardiac cath tomorrow, patient npo at midnight. Patient alert and oriented, from home with her mother. Patient has no difficulty obtaining medications. Patient has transportation home when medically stable for discharge. No needs identified .. Zulay Ellis RN * Care Plan - Jordan Navarro RN - 06/05/2023 3:38 PM EDT Problem: Pain - Adult Goal: Verbalizes/displays adequate comfort level or baseline comfort level Outcome: Progressing Problem: Safety - Adult Goal: Free from fall injury Outcome: Progressing Problem: Discharge Planning Goal: Discharge to home or other facility with appropriate resources Outcome: Progressing Problem: Chronic Conditions and Co-morbidities Goal: Patient's chronic conditions and co-morbidity symptoms are monitored and maintained or improved Outcome: Progressing The patient is Moderately Stable - Low risk of patient condition declining or worsening The patient's goals for the shift include CP free The clinical goals for the shift include CP 3/10 or less Over the shift, the patient did not make progress toward the following goals. Barriers to progression include n/a. Recommendations to address these barriers include n/a. documented in this [facility]08-25-2023 Note* Pre-Sedation Documentation - Maddi Mitchell MD - 06/06/2023 1:20 PM EDT Sedation Plan ASA class 3 - patient with severe systemic disease Mallampati class: II - soft palate, uvula, fauces visible. Sedation plan: moderate (conscious sedation) Risks, benefits, and alternatives discussed with patient. Plan discussed with attending. Immediate reassessment prior to sedation: Patient's status reviewed and vital signs assessed; acceptable to perform procedure and proceed to administer sedation as planned. Maddi Mitchell MD [facility] Work Phone: [phone]) 151-360508-25-2023 Plan of care note* Care Plan - Jordan Navarro RN - 06/06/2023 11:49 AM EDT Problem: Pain - Adult Goal: Verbalizes/displays adequate comfort level or baseline comfort level Outcome: Progressing Problem: Safety - Adult Goal: Free from fall injury Outcome: Progressing Problem: Discharge Planning Goal: Discharge to home or other facility with appropriate resources Outcome: Progressing Problem: Chronic Conditions and Co-morbidities Goal: Patient's chronic conditions and co-morbidity symptoms are monitored and maintained or improved Outcome: Progressing The patient is Moderately Stable - Low risk of patient condition declining or worsening The patient's goals for the shift include CP free The clinical goals for the shift include CP 3/10 or less Over the shift, the patient did not make progress toward the following goals. Barriers to progression include n/a. Recommendations to address these barriers include n/a. [facility] [id number] History of Present illness Narrative* SON Alvarado CNP - 06/06/2023 9:32 AM EDT Discussed case with Dr Miles. Plan for allergy prep moving forward is: IV solu cortef 200mg IV one hour prior Benadryl and Pepcid as ordered previously one hour prior Will notify staff when timing of cath is known IV NS at 75 hr ordered for reduced GFR documented in this [facility]08-24-2023 NoteACH CDU [address] [facility] [id number] Dept: [phone] Please see my progress note that will serve for her history and physical exam. This is a 63-year-old woman with known coronary disease who presented with 2 weeks of frequent angina and a week of daily angina. Her physical exam did not reveal evidence of heart failure. She had no evidence of valvular disease. Her EKG was clearly abnormal with sinus rhythm, first-degree AV block, right bundle branch block, left anterior hemiblock, possible old inferior infarct and poor R wave progression. Her troponins are normal. Her creatinine is baseline at 1.3 with estimated glomerular filtration rate of 45. Her complete blood count is normal except for minimally elevated white blood cell count at 11.3. Medical decision making This is a patient with known coronary disease, previous right coronary stenting, disease also circumflex. Fortunately, the LAD was not significantly involved at her last cardiac catheterization which was done at [facility] in [place]. This was done a little over a year ago when she had the right coronary artery stenting. With daily episodes, sometimes multiple episodes, of angina like pain lasting up to 20 minutes (1 responded to the only sublingual nitroglycerin that she took), I felt that we should admit her for urgent cardiac catheterization and possible acute coronary syndrome. This does not appear to be an acute coronary syndrome based on her normal troponins. The plan is for premedication (she has had an allergy to contrast agents) and hydration prior to her cardiac catheterization. I discussed this with the patient and her mother who is in attendance with her. They agree with the plan. I notified our independent video producer, Dr. Miles. Addendum June 17, 2023. In addition to the above, she has stage III chronic kidney disease, something we were following and taking into account with her cardiac catheterization.[facility] History and physical note* Satish Santos MD - 06/05/2023 8:47 PM EDT Images from the original note were not included. [address] [address] Dept: [phone] Please see my progress note that will serve for her history and physical exam. This is a 63-year-old woman with known coronary disease who presented with 2 weeks of frequent angina and a week of daily angina. Her physical exam did not reveal evidence of heart failure. She had no evidence of valvular disease. Her EKG was clearly abnormal with sinus rhythm, first-degree AV block, right bundle branch block, left anterior hemiblock, possible old inferior infarct and poor R wave progression. Her troponins are normal. Her creatinine is baseline at 1.3 with estimated glomerular filtration rate of 45. Her complete blood count is normal except for minimally elevated white blood cell count at 11.3. Medical decision making This is a patient with known coronary disease, previous right coronary stenting, disease also circumflex. Fortunately, the LAD was not significantly involved at her last cardiac catheterization whichwas done at [facility] in [place]. This was done a little over a year ago when she had the rightcoronary artery stenting. With daily episodes, sometimes multiple episodes, of angina like pain lasting up to 20 minutes (1 responded to the only sublingual nitroglycerin that she took), I felt that we should admit her for urgent cardiac catheterization and possible acute coronary syndrome. This does not appear to be an acute coronary syndrome based on her normal troponins. The plan is for premedication (she has had an allergy to contrast agents) and hydration prior to her cardiac catheterization. I discussed this with the patient and her mother who is in attendance with her. They agree with the plan. I notified our independent video producer, Dr. Miles. [facility] [id number] History and physical note* Satish Santos MD - 06/05/2023 8:47 PM EDT Images from the original note were not included. [address] [address] Dept: [phone] Please see my progress note that will serve for her history and physical exam. This is a 63-year-old woman with known coronary disease who presented with 2 weeks of frequent angina and a week of daily angina. Her physical exam did not reveal evidence of heart failure. She had no evidence of valvular disease. Her EKG was clearly abnormal with sinus rhythm, first-degree AV block, right bundle branch block, left anterior hemiblock, possible old inferior infarct and poor R wave progression. Her troponins are normal. Her creatinine is baseline at 1.3 with estimated glomerular filtration rate of 45. Her complete blood count is normal except for minimally elevated white blood cell count at 11.3. Medical decision making This is a patient with known coronary disease, previous right coronary stenting, disease also circumflex. Fortunately, the LAD was not significantly involved at her last cardiac catheterization whichwas done at [facility] in [place]. This was done a little over a year ago when she had the rightcoronary artery stenting. With daily episodes, sometimes multiple episodes, of angina like pain lasting up to 20 minutes (1 responded to the only sublingual nitroglycerin that she took), I felt that we should admit her for urgent cardiac catheterization and possible acute coronary syndrome. This does not appear to be an acute coronary syndrome based on her normal troponins. The plan is for premedication (she has had an allergy to contrast agents) and hydration prior to her cardiac catheterization. I discussed this with the patient and her mother who is in attendance with her. They agree with the plan. I notified our independent video producer, Dr. Miles. documented in this [facility]08-24-2023 Plan of care note* Care Plan - Daja Terrell RN - 06/05/2023 8:26 PM EDT Problem: Pain - Adult Goal: Verbalizes/displays adequate comfort level or baseline comfort level Outcome: Progressing Problem: Safety - Adult Goal: Free from fall injury Outcome: Progressing Problem: Discharge Planning Goal: Discharge to home or other facility with appropriate resources Outcome: Progressing Problem: Chronic Conditions and Co-morbidities Goal: Patient's chronic conditions and co-morbidity symptoms are monitored and maintained or improved Outcome: Progressing The patient is Moderately Stable - Low risk of patient condition declining or worsening The patient's goals for the shift include CP free The clinical goals for the shift include CP 3/10 or less 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 Valenzuela Seen in last 2 years?: Yes Primary Caregiver: Self If assistance needed, confirmed caregiver ready, willing and able to care for patient at discharge: Confirmed with: Living Arrangements Current Residence: House Number of Floors 2 Number of Entry Steps: Bed/Bath Levels: Both first floor Facility: Facility Name: Plan to Return: Yes Lives with: Parent Support Systems: Parent, Family members Activities of Daily Living Ambulation: Independent Bathing/Dressing: Independent Elimination/Continence/Toileting: Independent Feeding: Independent Who Assists with Activities of Daily Living: Instrumental Activities of Daily Living Prescription Coverage: Yes [facility]acy Used: [facility] [place] Medication Management: Independent Transportation/Shopping: Independent Transportation Mode: Car Needs Assistance with Transportation at Discharge: No Meal Preparation: Independent Laundry/Cleaning: Independent Finances/Bill Paying: Independent Communication: Independent Types of Care Services/Equipment Utilized Care Services: (none) Dialysis Type: NA Durable Medical Equipment: Cane, Walker Patient's Goal/Discharge Plan Patient expects to be discharged to: home Discharge Planning Actions: No needs identified Patient's Choice Rights and [employer] and Collaborative Relationships Disclosed as Indicated for Post-Acute Care: Interdisciplinary Team Engagement: Social Work Referral for: Additional Information: TCC met with patient in CDU. Patient in observation after cardiology appointment this morning. Patient has had intermittent chest pain daily for the last two weeks. Patient follows with cardiology, plan to have cardiac cath tomorrow, patient npo at midnight. Patient alert and oriented, from home with her mother. Patient has no difficulty obtaining medications. Patient has transportation home when medically stable for discharge. No needs identified .. Zulay Ellis RN [facility] [id number] Plan of care note* Care Plan - Jordan Navarro RN - 06/05/2023 3:38 PM EDT Problem: Pain - Adult Goal: Verbalizes/displays adequate comfort level or baseline comfort level Outcome: Progressing Problem: Safety - Adult Goal: Free from fall injury Outcome: Progressing Problem: Discharge Planning Goal: Discharge to home or other facility with appropriate resources Outcome: Progressing Problem: Chronic Conditions and Co-morbidities Goal: Patient's chronic conditions and co-morbidity symptoms are monitored and maintained or improved Outcome: Progressing The patient is Moderately Stable - Low risk of patient condition declining or worsening The patient's goals for the shift include CP free The clinical goals for the shift include CP 3/10 or less Over the shift, the patient did not make progress toward the following goals. Barriers to progression include n/a. Recommendations to address these barriers include n/a. [facility] [id number] History of Present illness Narrative* Satish Santos MD - 06/05/2023 11:40 AM EDT Images from the original note were not included. [facility] [address] [facility] [address] Dept: [phone] Dept Loc: [phone] DATE of SERVICE:06/05/23 TIME of SERVICE: 12:03 PM : 1960 Chief Complaint: Chief Complaint Patient presents with Follow-up History of PresentIllness: Lisbeth Craven is a 63 y.o. female here for an urgent visit. She has a history of type 2 diabetes mellitus, chronic kidney disease, rheumatoid arthritis, fibromyalgia, and coronary artery disease. Her last cardiac catheterization was March 02, 2022. This was done at [facility] in [place]. Her left main was normal. She had nonobstructive atherosclerosis in the LAD. She had a 40 to 50% circumflexlesion. She had a subtotal and occlusion of some small obtuse marginal branches. The culprit vesselat that time was a 99% mid right coronary artery lesion. That was stented. Her ejection fraction ended up being about 50%. I last saw her 2022. She saw Bertha Patricio February 24, 2023. At that visit she was doing well. She comes in today because of 2 weeks of increasing chest pain. For the last week its been daily. Her last episode was yesterday. She is usually having multiple episodes per day. It is described as a tightness or a heavy feeling in the retrosternal chest toward the left. Yesterday, she took a sublingual nitroglycerin and it helped. The episodes are lasting up to 20 minutes. They are about a 6-7 out of 10 in severity. They are associated with nausea and sweats. For the last week they have been occurring daily. Interestingly, there random, not in any pattern and not necessarily related to exertion. Past Medical History: Past Medical History: Diagnosis Date Chronic kidney disease Coronary artery disease Hypertension PR (myocardial infarction) (CMS/HCC) (HCC) Past Surgical History History reviewed. No pertinent surgical history. Family History Family History Problem Relation Name Age of Onset Heart attack Father Social History Social History Tobacco Use Smoking status: Former Types: Cigarettes Substance Use Topics Alcohol use: Never Drug use: Never Allergies: Allergies Allergen Reactions Hydrochlorothiazide Cannot take capsule. Tolerates tablet Iodides Levofloxacin Liraglutide Methylprednisolone Other Medications: Current Outpatient Medications: amLODIPine (Norvasc) 5 MG tablet, Take 1 tablet (5 mg) by mouth daily. (Patient taking differently:Take 10 mg by mouth 2 times daily.), Disp: 90 tablet, Rfl: 3 aspirin 81 MG EC tablet, Take 1 tablet by mouth every morning., Disp: , Rfl: b complex vitamins capsule, Take 1 capsule by mouth in the morning., Disp: , Rfl: slmjlesqrp-krlahewivivbe-mrwcfhye 50-325-40 MG tablet, Take 1 tablet by mouth every 4 hours as needed for headaches., Disp: , Rfl: carvedilol (Coreg) 3.125 MG tablet, Take 3.125 mg by mouth in the morning and 3.125 mg in the evening., Disp: , Rfl: cetirizine (ZyrTEC) 5 MG tablet, Take 10 mg by mouth in the morning., Disp: , Rfl: clopidogrel (Plavix) 75 MG tablet, Take 75 mg by mouth in the morning., Disp: , Rfl: Euthyrox 88 MCG tablet, Take 88 mcg by mouth in the morning., Disp: , Rfl: famotidine (Pepcid) 40 MG tablet, Take 40 mg by mouth in the morning., Disp: , Rfl: fluticasone (Flonase Sensimist) 27.5 MCG/SPRAY nasal spray, Administer 2 sprays into each nostril in the morning., Disp: , Rfl: glipiZIDE (Glucotrol) 10 MG tablet, Take 10 mg by mouth in the morning and 10 mg in the evening., Disp: , Rfl: hydroxychloroquine (Plaquenil) 200 MG tablet, Take by mouth., Disp: , Rfl: hyoscyamine (Levsin) 0.125 MG SL tablet, Take 0.125 mg by mouth every 4 hours as needed for cramping., Disp: , Rfl: lisinopril 5 MG tablet, Take 5 mg by mouth in the morning., Disp: , Rfl: loperamide (Imodium) 2 MG capsule, Take 2 mg by mouth as needed for diarrhea., Disp: , Rfl: ondansetron ODT (Zofran-ODT) 8 MG disintegrating tablet, Take 8 mg by mouth every 8 hours as neededfor nausea or vomiting., Disp: , Rfl: predniSONE (Deltasone) 5 MG tablet, Take 5 mg by mouth in the morning., Disp: , Rfl: rosuvastatin (Crestor) 10 MG tablet, Take 10 mg by mouth daily., Disp: , Rfl: simethicone (Mylicon) 125 MG chewable tablet, Chew every 6 hours as needed for flatulence., Disp: ,Rfl: valACYclovir (Valtrex) 1 g tablet, Take by mouth 2 times daily. PRN, Disp: , Rfl: venlafaxine (Effexor) 100 MG tablet, Take 100 mg by mouth., Disp: , Rfl: nitroglycerin (Nitrostat) 0.4 MG SL tablet, Place 1 tablet (0.4 mg) under the tongue every 5 minutes as needed for chest pain. Max 3 doses. If still having chest pain after 1st dose, call 911, Disp: 25 tablet, Rfl: 3 Review of Systems: Review of Systems Constitutional: Positive for fatigue. Negative for activity change, chills, diaphoresis and fever. HENT: Negative for nosebleeds and trouble swallowing. Eyes: Negative for discharge and visual disturbance. Respiratory: Positive for shortness of breath. Negative for apnea, cough, chest tightness and wheezing. Cardiovascular: Positive for chest pain (NITRO WITH RELIEF) and palpitations (pounding). Negative for leg swelling. Gastrointestinal: Negative for abdominal distention, abdominal pain, blood in stool, diarrhea, nausea and vomiting. Endocrine: Negative for cold intolerance and heat intolerance. Genitourinary: Negative for hematuria. Musculoskeletal: Negative for gait problem and myalgias. Skin: Negative for color change and rash. Neurological: Positive for light-headedness. Negative for dizziness, seizures, syncope, facial asymmetry, speech difficulty, weakness, numbness and headaches. Hematological: Does not bruise/bleed easily. Psychiatric/Behavioral: Negative for dysphoric mood. Physical Examination: Vitals: Vitals: 06/05/23 1146 BP: 128/68 BP Location: Left arm Patient Position: Sitting BP Cuff Size: Adult Pulse: 54 SpO2: 99% Weight: 182 lb 9.6 oz (82.8 kg) Height: 5' 8 (1.727 m) Body mass index is 27.76 kg/m . Physical Exam She appears well. Her neck veins are normal, lungs clear. Her heart sounds are normal. Her abdomen is soft without a palpable liver edge. She has no peripheral edema. Laboratory Tests: No results found for: WBC, HGB, HCT, MCV, PLT No results found for: GLUCOSE, CALCIUM, NA, K, CO2, CL, BUN, CREATININE @LASTCMP@ No results found for: CHLPL, CHOL No results found for: TRIG No results found for: HDL No results found for: LDLCALC, LDLDIRECT No components found for: LVEF, LVEFMODE Her EKG shows sinus rhythm, first-degree AV block, right bundle branch block with left anterior fascicular block, left atrial enlargement, Q waves inferiorly suggesting previous inferior infarct and very poor R wave progression. Assessment and Plan: @DIAGREFRESH@ Medical decision making My concern is for unstable angina pectoris in the setting she is having multiple episodes per day and lasting up to 20 minutes. Her EKG is markedly abnormal, making EKG prognostication difficult. Thus, we have to go primarily by the history. She has known coronary artery disease, multivessel in fact, involving primarily the right coronary artery and circumflex. She had a right coronary stent little over a year ago. Diagnostically, will be CBC and basic metabolic panel and at least 1 troponin level. We need to reassess her glomerular filtration rate prior to heart cath. Therapeutically, we will continue antianginal therapy and dual antiplatelet therapy. Educationally, plan is to her and her mother. We are arranging admission to the clinical decision unit and a cardiac catheterization later today or tomorrow. documented in this [facility]07-13-2023 NoteHNO ID: [id number] Author: RT Buster(R) Service: ? Author Type: Clean Room Technician Type: Progress Notes Filed: 04/24/2023 3:43 PM Note Text: Radiology Service Progress Note PATIENT NAME: Lisbeth Craven DATE OF SERVICE: April 24, 2023 TIME: 3:43 PM PATIENT IDENTITY VERIFICATION COMPLETED USING TWO (2) IDENTIFIERS: Name and Date of confirmed by patient verbally. FALL SCREENING: Has the patient had 2 falls in the last year or 1 fall with injury or currently using an Ambulatory Assistive Device (Walker, Cane, Wheelchair, Crutches, etc.)? No PATIENT GENDER DATA: Female. status: : No status: NO. PATIENT RELEVANT IMPLANT DATA REVIEWED: Yes RADIOLOGY DEPARTMENT: CT; Exam(s) Completed: Chest Abdomen Pelvis PERIPHERAL IV DATA: Not applicable SIGNED BY: RT Regino(R) April 24, 2023 3:43 [facility]07-13-2023 History of Present illness Narrative* Bria Bocanegra RT(R) - 04/24/2023 10:40 AM EDT Radiology Service Progress Note PATIENT NAME: Lisbeth Craven DATE OF SERVICE: April 24, 2023 TIME: 3:43 PM PATIENT IDENTITY VERIFICATION COMPLETED USING TWO (2) IDENTIFIERS: Name and Date of confirmedby patient verbally. FALL SCREENING: Has the patient had 2 falls in the last year or 1 fall with injury or currently using an Ambulatory Assistive Device (Walker, Cane, Wheelchair, Crutches, etc.)? No PATIENT GENDER DATA: Female. status: : No status: NO. PATIENT RELEVANT IMPLANT DATA REVIEWED: Yes RADIOLOGY DEPARTMENT: CT; Exam(s) Completed: Chest Abdomen Pelvis PERIPHERAL IV DATA: Not applicable SIGNED BY: RT Regino(R) April 24, 2023 3:43 PM [facility] Miscellaneous Notes* Telephone Encounter - Tiffanie Keyes LPN - 04/18/2023 12:40 PM EDT See other phone note. Patient does not require hydration, CT's are WO contrast d/t allergy. Patientnotified. Tiffanie Keyes LPN * Telephone Encounter - Sandy Ortega Pss - 04/18/2023 12:06 PM EDT Patient is asking if she will be needing IV fluids before or after scheduled. CT. She states she has kidney disease. Please advise. [facility]06[facility]23 Miscellaneous Notes* Telephone Encounter - Buffy Gray LPN - 04/07/2023 4:56 PM EDT Spoke with pt. She has a couple concerns about CT scan scheduled for 04/24. 1) pt.has kidney disease her last creatinine 03/31 was 1.07, and GFR 59. Questioning hydration? Or do you want labs closer to the scan to make that decision/ If so please place orders. 2) pt. Has allergy to IV Dye. Pt. Stated Dr. Vasquez was aware, I don't see any orders for pre-med. They will no do it in our facility with out a pre-med. Buffy Gray LPN * Telephone Encounter - Buffy Gray LPN - 04/07/2023 3:22 PM EDT Pt. Contacted, whomever answered the phone stated pt. Just went into the store, to call back in an hour. Buffy Gray LPN * Telephone Encounter - Felicity Higgins - 04/07/2023 11:23 AM EDT Patient has questions re: CT ordered by Dr. Vasquez. Please advise. Felicity Higgins documented in this encounterBarn[facility]06-23-[facility]23 NoteHNO ID: [id number] Author: Eliecer Vasquez MD Service: ? Author Type: Physician Type: Progress Notes Filed: 04/04/2023 1:51 PM Note Text: [facility] Progress Note SERVICE DATE: April 04, 2023 HISTORY OF PRESENT ILLNESS: This is a pleasant 60-year-old female with history of stage I colon cancer status post right hemicolectomy on 11/11/2022. The surgical pathology reported moderately differentiated adenocarcinoma, tumor invades muscularis propria, 17 lymph nodes, negative margins, LVI not identified, PNI not identified, tumor deposits not identified, pT2pN0, stage I. No adjuvant chemotherapy was recommended. Patient is here today for 3-month follow-up. Clinically patient has been doing better. She denies fever, chills, abdominal pain, constipation, or GI bleeding. She reports occasional loose stools, but tolerable. She has chronic joint pain from arthritis, for which she is taking prednisone 5 mg daily. Current Outpatient Medications Medication Sig Dispense Refill levothyroxine (SYNTHROID) 88 mcg tablet Take 88 mcg by mouth once daily. predniSONE (DELTASONE) 5 mg tablet 5 mg. clopidogrel (PLAVIX) 75 mg tablet Take 75 mg by mouth once daily. carvedilol (COREG) 3.125 mg tablet Take 3.125 mg by mouth twice daily. venlafaxine (EFFEXOR) 75 mg tablet Take 75 mg by mouth once daily. venlafaxine ER (EFFEXOR XR) 150 mg 24 hr capsule Take 150 mg by mouth once daily. glipiZIDE (GLUCOTROL) 10 mg tablet Take 10 mg by mouth twice daily. hydrOXYchloroQUINE (PLAQUENIL) 200 mg tablet Take two tablets by mouth once daily. amLODIPine (NORVASC) 5 mg tablet Take 5 mg by mouth once daily. vitamin b complex tab Take 1 tablet by mouth once daily. lisinopril (ZESTRIL) 5 mg tablet Take 5 mg by mouth once daily. famotidine (PEPCID) 40 mg tablet Take 40 mg by mouth once daily. BIOTIN ORAL 5,000 mcg: Take three capsules by mouth once daily. rosuvastatin (CRESTOR) 10 mg tablet Take 10 mg by mouth daily at bedtime. ondansetron (ZOFRAN) 8 mg tablet Take 8 mg by mouth every 8 hours as needed for nausea/vomiting. hyoscyamine sulfate 0.125 mg ODT Dissolve 0.125 mg under the tongue every 6 hours while awake. acetaminophen 300 mg-caffeine 40 mg-butalbital 50 mg (FIORICET) per capsule Take 1 capsule by mouth every 4 hours as needed. valACYclovir (VALTREX) 1 gram Take one tablet by mouth as needed for fever blisters. fluticasone (FLONASE) 50 mcg/actuation nasal spray Use 1 [place] in each nostril once daily as needed. simethicone (GAS-X ORAL) Take 2 tablets by mouth as needed. loperamide HCl (IMODIUM) 2 mg tab Take 2 mg by mouth as needed. diphenhydramine HCl (BENADRYL ORAL) Take 1 tablet by mouth as needed. cetirizine (ZYRTEC) 10 mg tablet Take 10 mg by mouth once daily as needed. acetaminophen (TYLENOL) 500 mg tablet Take 500 mg by mouth every 8 hours as needed. aspirin, enteric coated (ASPIRIN, ENTERIC COATED) 81 mg EC tablet TAKE ONE TABLET BY MOUTH EVERY DAY WITH A MEAL 30 tablet 1 No current facility-administered medications for this visit. REVIEW OF SYSTEMS: Review of Systems Constitutional: Negative for chills, fatigue and fever. HENT: Negative for lump/mass, mouth sores and trouble swallowing. Respiratory: Negative for cough, hemoptysis and shortness of breath. Cardiovascular: Negative for chest pain and palpitations. Gastrointestinal: Positive for diarrhea. Negative for abdominal pain, blood in stool and constipation. Genitourinary: Negative for dysuria, frequency and hematuria. Musculoskeletal: Positive for arthralgias. Skin: Negative for rash. Neurological: Negative for dizziness and headaches. Hematological: Negative for adenopathy. Does not bruise/bleed easily. Psychiatric/Behavioral: Negative for confusion and decreased concentration. The patient is nervous/anxious. PHYSICAL EXAM: BP 140/70 Pulse 64 Temp 36.6 ?C (97.8 ?F) (Temporal) Wt 83.2 kg (183 lb 8 oz) SpO2 95% BMI 27.9 kg/m2 Body mass index is 27.9 kg/m?. Estimated body surface area is 2 meters squared as calculated from the following: Height as of 12/18/22: 172.7 cm (5' 8 ). Weight as of this encounter: 83.2 kg (183 lb 8 oz). ECO- Fully active, able to carry on all pre-disease performance w/o restriction. Physical Exam Vitals reviewed. Constitutional: Appearance: Normal appearance. She is normal weight. HENT: Head: Normocephalic and atraumatic. Nose: Nose normal. Eyes: Conjunctiva/sclera: Conjunctivae normal. Cardiovascular: Rate and Rhythm: Normal rate and regular rhythm. Pulmonary: Effort: Pulmonary effort is normal. No respiratory distress. Breath sounds: Normal breath sounds. No wheezing. Abdominal: General: Abdomen is flat. There is no distension. Palpations: Abdomen is soft. Tenderness: There is no abdominal tenderness. Musculoskeletal: General: Normal range of motion. Cervical back: Normal range of motion and neck supple. Right lower leg: No edema. Left (more content not included)...[facility]06-23-2023 History of Present illness Narrative* Eliecer Vasquez MD - 04/04/2023 1:24 PM EDT Images from the original note were not included. [facility] Progress Note SERVICE DATE: April 04, 2023 HISTORY OF PRESENT ILLNESS: This is a pleasant 60-year-old female with history of stage I colon cancer status post right hemicolectomy on 11/11/2022. The surgical pathology reported moderately differentiated adenocarcinoma, tumor invades muscularis propria, 17 lymph nodes, negative margins, LVI not identified, PNI not identified, tumor deposits not identified, pT2pN0, stage I. No adjuvant chemotherapy was recommended. Patient is here today for 3-month follow-up. Clinically patient has been doing better. She denies fever, chills, abdominal pain, constipation, or GI bleeding. She reports occasional loose stools, but tolerable. She has chronic joint pain from arthritis, for which she is taking prednisone 5 mg daily. Current Outpatient Medications Medication Sig Dispense Refill levothyroxine (SYNTHROID) 88 mcg tablet Take 88 mcg by mouth once daily. predniSONE (DELTASONE) 5 mg tablet 5 mg. clopidogrel (PLAVIX) 75 mg tablet Take 75 mg by mouth once daily. carvedilol (COREG) 3.125 mg tablet Take 3.125 mg by mouth twice daily. venlafaxine (EFFEXOR) 75 mg tablet Take 75 mg by mouth once daily. venlafaxine ER (EFFEXOR XR) 150 mg 24 hr capsule Take 150 mg by mouth once daily. glipiZIDE (GLUCOTROL) 10 mg tablet Take 10 mg by mouth twice daily. hydrOXYchloroQUINE (PLAQUENIL) 200 mg tablet Take two tablets by mouth once daily. amLODIPine (NORVASC) 5 mg tablet Take 5 mg by mouth once daily. vitamin b complex tab Take 1 tablet by mouth once daily. lisinopril (ZESTRIL) 5 mg tablet Take 5 mg by mouth once daily. famotidine (PEPCID) 40 mg tablet Take 40 mg by mouth once daily. BIOTIN ORAL 5,000 mcg: Take three capsules by mouth once daily. rosuvastatin (CRESTOR) 10 mg tablet Take 10 mg by mouth daily at bedtime. ondansetron (ZOFRAN) 8 mg tablet Take 8 mg by mouth every 8 hours as needed for nausea/vomiting. hyoscyamine sulfate 0.125 mg ODT Dissolve 0.125 mg under the tongue every 6 hours while awake. acetaminophen 300 mg-caffeine 40 mg-butalbital 50 mg (FIORICET) per capsule Take 1 capsule by mouthevery 4 hours as needed. valACYclovir (VALTREX) 1 gram Take one tablet by mouth as needed for fever blisters. fluticasone (FLONASE) 50 mcg/actuation nasal spray Use 1 [place] in each nostril once daily as needed. simethicone (GAS-X ORAL) Take 2 tablets by mouth as needed. loperamide HCl (IMODIUM) 2 mg tab Take 2 mg by mouth as needed. diphenhydramine HCl (BENADRYL ORAL) Take 1 tablet by mouth as needed. cetirizine (ZYRTEC) 10 mg tablet Take 10 mg by mouth once daily as needed. acetaminophen (TYLENOL) 500 mg tablet Take 500 mg by mouth every 8 hours as needed. aspirin, enteric coated (ASPIRIN, ENTERIC COATED) 81 mg EC tablet TAKE ONE TABLET BY MOUTH EVERY DAY WITH A MEAL 30 tablet 1 No current facility-administered medications for this visit. REVIEW OF SYSTEMS: Review of Systems Constitutional: Negative for chills, fatigue and fever. HENT: Negative for lump/mass, mouth sores and trouble swallowing. Respiratory: Negative for cough, hemoptysis and shortness of breath. Cardiovascular: Negative for chest pain and palpitations. Gastrointestinal: Positive for diarrhea. Negative for abdominal pain, blood in stool and constipation. Genitourinary: Negative for dysuria, frequency and hematuria. Musculoskeletal: Positive for arthralgias. Skin: Negative for rash. Neurological: Negative for dizziness and headaches. Hematological: Negative for adenopathy. Does not bruise/bleed easily. Psychiatric/Behavioral: Negative for confusion and decreased concentration. The patient is nervous/anxious. PHYSICAL EXAM: BP 140/70 Pulse 64 Temp 36.6 C (97.8 F) (Temporal) Wt 83.2 kg (183 lb 8 oz) SpO2 95% BMI 27.9 kg/m2Body mass index is 27.9 kg/m . Estimated body surface area is 2 meters squared as calculated from the following: Height as of 12/18/22: 172.7 cm (5' 8 ). Weight as of this encounter: 83.2 kg (183 lb 8 oz). ECO- Fully active, able to carry on all pre-disease performance w/o restriction. Physical Exam Vitals reviewed. Constitutional: Appearance: Normal appearance. She is normal weight. HENT: Head: Normocephalic and atraumatic. Nose: Nose normal. Eyes: Conjunctiva/sclera: Conjunctivae normal. Cardiovascular: Rate and Rhythm: Normal rate and regular rhythm. Pulmonary: Effort: Pulmonary effort is normal. No respiratory distress. Breath sounds: Normal breath sounds. No wheezing. Abdominal: General: Abdomen is flat. There is no distension. Palpations: Abdomen is soft. Tenderness: There is no abdominal tenderness. Musculoskeletal: General: Normal range of motion. Cervical back: Normal range of motion and neck supple. Right lower leg: No edema. Left lower leg: No edema. Skin: Coloration: Skin is not jaundiced. Findings: No bruising or rash. Neurological: General: No focal deficit present. Mental Status: She is alert and oriented to person, place, and time. Cranial Nerves: No cranial nerve deficit. Motor: No weakness. Gait: Gait normal. Psychiatric: Mood and Affect: Mood normal. Behavior: Behavior normal. LABS: Latest Reference Range & Units 03/31/23 10:52 Sodium 136 - 144 mmol/L 137 Potassium 3.7 - 5.1 mmol/L 4.5 Chloride 97 - 105 mmol/L 101 CO2 22 - 30 mmol/L 27 BUN 7 - 21 mg/dL 19 Creatinine 0.58 - 0.96 mg/dL 1.07 (H) Glucose 74 - 99 mg/dL 335 (H) Protein, Total 6.3 - 8.0 g/dL 7.3 Calcium 8.5 - 10.2 mg/dL 9.7 Albumin 3.9 - 4.9 g/dL 4.3 Bilirubin, Total 0.2 - 1.3 mg/dL 0.2 Alkaline Phosphatase 34 - 123 U/L 105 ALT 7 - 38 U/L 14 AST 13 - 35 U/L 13 Anion Gap 9 - 18 mmol/L 9 eGFR >=60 mL/min/1.73m 59 (L) CEA <=2.9 ng/mL 3.9 (H) WBC 3.70 - 11.00 k/uL 13.50 (H) RBC 3.90 - 5.20 m/uL 4.66 Hemoglobin 11.5 - 15.5 g/dL 12.4 Hematocrit 36.0 - 46.0 % 39.5 Platelet Count 150 - 400 k/uL 226 IMPRESSION: Lisbeth Craven is a 62 year old female diagnosed with stage I colon cancer status post right hemicolectomy without adjuvant therapy. She had a complicated postoperative course but has recovered nicely before. Clinically she has no new complaints. Her CEA is elevated, 3.9. She is a non-smoker. Anemia, resolved. Chronic neutrophilia, secondary to prednisone. STAGE: Cancer Staging Malignant neoplasm of ascending colon (HCC) Staging form: Colon and Rectum, AJCC 8th Edition - Pathologic: Stage I (pT2, pN0, cM0) - Signed by Eliecer Vasquez MD on 04/04/2023 PLAN: We will add to schedule CT of abdomen and pelvis with both IV and oral contrast. Patient states shewas allergic to IV contrast in , but did okay with the CT scan at the hospital after taking some Benadryl. Follow-up in [address] scan is unremarkable. Eliecer Vasquez MD cc: Cristel Valenzuela MD documented in this encounterBarnesville Hospital05-15-2023 History of Present illness Narrative* Alize Hernandez MA - 02/24/2023 10:30 AM EDT ek * Betrha Patricio PA-C - 02/24/2023 10:30 AM EDT [facility] Cardiology Note DATE of SERVICE:02/24/23 TIME of SERVICE: 11:22 AM Chief Complaint: Chief Complaint Patient presents with Follow-up History of PresentIllness: Lisbeth Craven is a 62 y.o. female Known to Dr. Santos with a history of diabetes, chronic kidney disease, rheumatoid arthritis, fibromyalgia, heart catheterization in February 2022 where she received a stent to the right coronary artery.She comes in today for follow-up. Since she was last seen she was found to have colon cancer. She reports she had a partial colectomy, not requiring any adjunct of therapy. The surgery was done in October. She reports 3 further admissions after due to recurrent bleeding. She reports being off of aspirin and Plavix for a couple of weeks in November due to recurrent bleeding. She is back on dual antiplatelet therapy. She has not had any further rectal bleeding. She denies any anginal symptoms throughout all of this. Flor did not complete cardiac rehab. She states that she had problems getting records that we have requested in [place]. I did find the cath report and echocardiogram in care everywhere. We printed these off so that she could call back to [place] [facility] to see if she could potentially enroll as she is still within the 1 year window. Past Medical History: Past Medical History: Diagnosis Date Chronic kidney disease Coronary artery disease Hypertension PR (myocardial infarction) (CMS/HCC) ([facility]) Past Surgical History History reviewed. No pertinent surgical history. Family History Family History Problem Relation Name Age of Onset Heart attack Father Social History Social History Tobacco Use Smoking status: Former Types: Cigarettes Substance Use Topics Alcohol use: Never Drug use: Never Allergies: Allergies Allergen Reactions Hydrochlorothiazide Cannot take capsule. Tolerates tablet Iodides Levofloxacin Liraglutide Methylprednisolone Other Medications: Current Outpatient Medications: amLODIPine (Norvasc) 5 MG tablet, Take 1 tablet (5 mg) by mouth daily., Disp: 90 tablet, Rfl: 0 aspirin 81 MG EC tablet, Take 1 tablet by mouth every morning., Disp: , Rfl: b complex vitamins capsule, Take 1 capsule by mouth in the morning., Disp: , Rfl: lhogmcjfow-hyqbhdfonqhax-jlshlhcg 50-325-40 MG tablet, Take 1 tablet by mouth every 4 hours as needed for headaches., Disp: , Rfl: carvedilol (Coreg) 3.125 MG tablet, Take 3.125 mg by mouth in the morning and 3.125 mg in the evening., Disp: , Rfl: cetirizine (ZyrTEC) 5 MG tablet, Take 10 mg by mouth in the morning., Disp: , Rfl: clopidogrel (Plavix) 75 MG tablet, Take 75 mg by mouth in the morning., Disp: , Rfl: Euthyrox 88 MCG tablet, Take 88 mcg by mouth in the morning., Disp: , Rfl: famotidine (Pepcid) 40 MG tablet, Take 40 mg by mouth in the morning., Disp: , Rfl: glipiZIDE (Glucotrol) 10 MG tablet, Take 10 mg by mouth in the morning and 10 mg in the evening., Disp: , Rfl: hydroxychloroquine (Plaquenil) 200 MG tablet, Take by mouth., Disp: , Rfl: lisinopril 5 MG tablet, Take 5 mg by mouth in the morning., Disp: , Rfl: predniSONE (Deltasone) 5 MG tablet, Take 5 mg by mouth in the morning., Disp: , Rfl: rosuvastatin (Crestor) 10 MG tablet, Take 10 mg by mouth daily., Disp: , Rfl: venlafaxine (Effexor) 100 MG tablet, Take 100 mg by mouth., Disp: , Rfl: fluticasone (Flonase Sensimist) 27.5 MCG/SPRAY nasal spray, Administer 2 sprays into each nostril in the morning., Disp: , Rfl: hyoscyamine (Levsin) 0.125 MG SL tablet, Take 0.125 mg by mouth every 4 hours as needed for cramping., Disp: , Rfl: loperamide (Imodium) 2 MG capsule, Take 2 mg by mouth as needed for diarrhea., Disp: , Rfl: nitroglycerin (Nitrostat) 0.4 MG SL tablet, Place 1 tablet (0.4 mg) under the tongue every 5 minutes as needed for chest pain. Max 3 doses. If still having chest pain after 1st dose, call 911, Disp: 25 tablet, Rfl: 3 ondansetron ODT (Zofran-ODT) 8 MG disintegrating tablet, Take 8 mg by mouth every 8 hours as neededfor nausea or vomiting., Disp: , Rfl: simethicone (Mylicon) 125 MG chewable tablet, Chew every 6 hours as needed for flatulence., Disp: ,Rfl: valACYclovir (Valtrex) 1 g tablet, Take by mouth 2 times daily. PRN, Disp: , Rfl: Review of Systems: Review of Systems Constitutional: Negative for chills, diaphoresis and fever. HENT: Negative for congestion. Eyes: Negative for visual disturbance. Respiratory: Negative for chest tightness and shortness of breath. Cardiovascular: Negative for chest pain and palpitations. Gastrointestinal: Negative for abdominal pain, constipation, diarrhea and nausea. Endocrine: Negative for cold intolerance and heat intolerance. Genitourinary: Negative for dysuria and hematuria. Musculoskeletal: Negative for arthralgias. Skin: Negative for rash. Neurological: Negative for dizziness and syncope. Physical Examination: Vitals: Vitals: 02/24/23 1041 BP: 120/60 BP Location: Left arm Patient Position: Sitting BP Cuff Size: Small adult Pulse: 56 Resp: 16 SpO2: 99% Weight: 182 lb (82.6 kg) Height: 5' 8 (1.727 m) Body mass index is 27.67 kg/m . Physical Exam Constitutional: General: She is not in acute distress. Appearance: She is not diaphoretic. HENT: Head: Normocephalic. Eyes: General: Right eye: No discharge. Left eye: No discharge. Conjunctiva/sclera: Conjunctivae normal. Cardiovascular: Rate and Rhythm: Normal rate and regular rhythm. Pulmonary: Breath sounds: No wheezing or rales. Abdominal: General: Bowel sounds are normal. Palpations: Abdomen is soft. Musculoskeletal: Right lower leg: No edema. Left lower leg: No edema. Skin: General: Skin is warm and dry. Findings: No erythema or rash. Neurological: Mental Status: She is oriented to person, place, and time. Psychiatric: Mood and Affect: Mood normal. Laboratory Tests: No results found for: WBC, HGB, HCT, MCV, PLT No results found for: GLUCOSE, CALCIUM, NA, K, CO2, CL, BUN, CREATININE @LASTCMP@ No results found for: CHLPL, CHOL No results found for: TRIG No results found for: HDL No results found for: LDLCALC, LDLDIRECT No components found for: LVEF, LVEFMODE Left heart catheterization March 02, 2022 noted in Care Everywhere She received stenting to the mid right coronary artery. She otherwise had a normal left main, nonobstructive disease in the LAD, 40 to 50% circumflex lesion, subtotal and occlusion of small OM branches. Assessment and Plan: Coronary artery disease with previous stenting to the right coronary artery in February 2022. She deniesrecurrent anginal symptoms. LVEF was estimated at 50% with mild to moderate LVH by echo in February 2022. She continues on aspirin, Plavix, carvedilol, and rosuvastatin. EKG in the office notes sinus bradycardia with heart rate of 56, right bundle branch block, Q-wave and T wave changes inferior laterally that by description sounds similar to EKGs in February 2022. The actual tracing at that time is unavailable. Hypertension. Blood pressure is well controlled. She will continue amlodipine, and carvedilol. Anemia. Her last hemoglobin was reported at 9. She had a partial colectomy in October with subsequent bleeding requiring 3 further admissions. She states this is being followed. She denies any further rectal bleeding at this time. For follow-up she will be seen again in 6 months, sooner if any problems should arise. documented in this encounterSOhioHealth Mansfield [id number] Telephone encounter Note* Telephone Encounter - Chevy Lui - 02/03/2023 3:31 PM EDT Spoke to pt. Pt states BV is to far. Will call and reschedule in the future if needed. [id number] Miscellaneous Notes* Telephone Encounter - Chevy Lui - 02/03/2023 3:31 PM EDT Spoke to pt. Pt states BV is to far. Will call and reschedule in the future if needed. documented in this [id number] NoteHNO ID: [id number] Author: Cuba Alvares MD Service: ? Author Type: Physician Type: Progress Notes Filed: 01/01/2023 4:34 PM Note Text: SERVICE DATE: January 01, 2023 CHIEF COMPLAINT: Lisbeth Craven is a 62 year old female returning today for follow up of her colon cancer INTERVAL HISTORY: Very pleasant 62-year-old white lady with her mom today as follow-up on recently diagnosed stage II: colon adenocarcinoma. I saw her a couple of weeks ago and from the available data did not believe that she would be a candidate for adjuvant chemotherapy. Were waiting on results of mismatch repair and Oncotype. We have the former but not the latter Diagnostic Studies: Reviewed CURRENT MEDICATIONS: levothyroxine (EUTHYROX) 88 mcg tablet Take 88 mcg by mouth once daily. predniSONE (DELTASONE) 5 mg tablet Take 1/2 tablet by mouth once daily. clopidogrel (PLAVIX) 75 mg tablet Take 75 mg by mouth once daily. carvedilol (COREG) 3.125 mg tablet Take 3.125 mg by mouth twice daily. venlafaxine (EFFEXOR) 75 mg tablet Take 75 mg by mouth once daily. venlafaxine ER (EFFEXOR XR) 150 mg 24 hr capsule Take 150 mg by mouth once daily. glipiZIDE (GLUCOTROL) 10 mg tablet Take 10 mg by mouth twice daily. hydrOXYchloroQUINE (PLAQUENIL) 200 mg tablet Take two tablets by mouth once daily. amLODIPine (NORVASC) 5 mg tablet Take 5 mg by mouth once daily. vitamin b complex tab Take 1 tablet by mouth once daily. lisinopril (ZESTRIL, PRINIVIL) 5 mg tablet Take 5 mg by mouth once daily. famotidine (PEPCID) 40 mg tablet Take 40 mg by mouth once daily. BIOTIN ORAL 5,000 mcg: Take three capsules by mouth once daily. rosuvastatin (CRESTOR) 10 mg tablet Take 10 mg by mouth daily at bedtime. ondansetron (ZOFRAN) 8 mg tablet Take 8 mg by mouth every 8 hours as needed for nausea/vomiting. hyoscyamine sulfate 0.125 mg ODT Dissolve 0.125 mg under the tongue every 6 hours while awake. acetaminophen 300 mg-caffeine 40 mg-butalbital 50 mg (FIORICET) per capsule Take 1 capsule by mouth every 4 hours as needed. valACYclovir (VALTREX) 1 gram Take one tablet by mouth as needed for fever blisters. fluticasone (FLONASE ALLERGY RELIEF) 50 mcg/actuation nasal spray Use 1 [place] in each nostril once daily as needed. simethicone (GAS-X ORAL) Take 2 tablets by mouth as needed. loperamide HCl (IMODIUM A-D) 2 mg tab Take 2 mg by mouth as needed. diphenhydramine HCl (BENADRYL ORAL) Take 1 tablet by mouth as needed. cetirizine (ZYRTEC) 10 mg tablet Take 10 mg by mouth once daily as needed. acetaminophen (TYLENOL EXTRA STRENGTH) 500 mg tablet Take 500 mg by mouth every 8 hours as needed. aspirin, enteric coated (ASPIRIN, ENTERIC COATED) 81 mg EC tablet TAKE ONE TABLET BY MOUTH EVERY DAY WITH A MEAL ALLERGIES/INTOLERANCES: ALLERGIES Allergen Reactions Adhesive Rash Hydrochlorothiazide Unknown Hydrocodone Itching Iron Diarrhea Ivp Dye [Iodine] Rash, Shortness of Breath Levaquin [Levofloxa* Shortness of Breath Methylprednisone Mental Status Change Percocet [Oxycodone* Itching Sulfa (Sulfonamide * Rash Victoza [Liraglutid* GI Upset, Vomiting ROS: No changes in her extensive review of systems PHYSICAL EXAM: BP 140/66 Pulse 63 Temp 36.4 ?C (97.6 ?F) (Temporal) Wt 83.7 kg (184 lb 8 oz) BMI 28.05 kg/m2 Body mass index is 28.05 kg/m?. ECO No abnormalities on physical exam DATA REVIEW: I personally reviewed the patient's data and medical records. PERTINENT LABS: Reviewed PERTINENT IMAGING: Reviewed ASSESSMENT AND Plan Stage II colon cancer with preop CEA level of 2.4, T2 lesion with no lymphovascular or perineural invasion. Tumor is of usual pathology of adenocarcinoma with no mucinous or signet-ring features. Number of lymph nodes was very adequate and no loss of mismatch repair. All of which indicate no potential benefit from adjuvant chemotherapy which in itself is 3 to 5% if any. Just to complete all the data I am waiting on the results of the Oncotype which are not available yet. I will call the patient with the results and obviously if there is any changes of the plan which I do not believe is the case. I scheduled her for follow-up in 3-month. After that I recommend every 6 months oncologic surveillance for 2 years then once a year. We will include CEA with surveillance although obviously her colon cancer was not CEA producing tumor. We will still do it in case a mutant clone that produces CEA evolves which hopefully will not be the case The patient was able to ask questions and these were answered in detail. Cuba Alvares MD cc: Cuba Valenzuela, [facility]03-22-2023 History of Present illness Narrative* Cuba Alvares MD - 01/01/2023 4:28 PM EDT Images from the original note were not included. SERVICE DATE: January 01, 2023 CHIEF COMPLAINT: Lisbeth Craven is a 62 year old female returning today for follow up of her colon cancer INTERVAL HISTORY: Very pleasant 62-year-old white lady with her mom today as follow-up on recently diagnosed stage II: colon adenocarcinoma. I saw her a couple of weeks ago and from the available data did not believe that she would be a candidate for adjuvant chemotherapy. Were waiting on results of mismatch repair and Oncotype. We have the former but not the latter Diagnostic Studies: Reviewed CURRENT MEDICATIONS: levothyroxine (EUTHYROX) 88 mcg tablet Take 88 mcg by mouth once daily. predniSONE (DELTASONE) 5 mg tablet Take 1/2 tablet by mouth once daily. clopidogrel (PLAVIX) 75 mg tablet Take 75 mg by mouth once daily. carvedilol (COREG) 3.125 mg tablet Take 3.125 mg by mouth twice daily. venlafaxine (EFFEXOR) 75 mg tablet Take 75 mg by mouth once daily. venlafaxine ER (EFFEXOR XR) 150 mg 24 hr capsule Take 150 mg by mouth once daily. glipiZIDE (GLUCOTROL) 10 mg tablet Take 10 mg by mouth twice daily. hydrOXYchloroQUINE (PLAQUENIL) 200 mg tablet Take two tablets by mouth once daily. amLODIPine (NORVASC) 5 mg tablet Take 5 mg by mouth once daily. vitamin b complex tab Take 1 tablet by mouth once daily. lisinopril (ZESTRIL, PRINIVIL) 5 mg tablet Take 5 mg by mouth once daily. famotidine (PEPCID) 40 mg tablet Take 40 mg by mouth once daily. BIOTIN ORAL 5,000 mcg: Take three capsules by mouth once daily. rosuvastatin (CRESTOR) 10 mg tablet Take 10 mg by mouth daily at bedtime. ondansetron (ZOFRAN) 8 mg tablet Take 8 mg by mouth every 8 hours as needed for nausea/vomiting. hyoscyamine sulfate 0.125 mg ODT Dissolve 0.125 mg under the tongue every 6 hours while awake. acetaminophen 300 mg-caffeine 40 mg-butalbital 50 mg (FIORICET) per capsule Take 1 capsule by mouthevery 4 hours as needed. valACYclovir (VALTREX) 1 gram Take one tablet by mouth as needed for fever blisters. fluticasone (FLONASE ALLERGY RELIEF) 50 mcg/actuation nasal spray Use 1 [place] in each nostril once daily as needed. simethicone (GAS-X ORAL) Take 2 tablets by mouth as needed. loperamide HCl (IMODIUM A-D) 2 mg tab Take 2 mg by mouth as needed. diphenhydramine HCl (BENADRYL ORAL) Take 1 tablet by mouth as needed. cetirizine (ZYRTEC) 10 mg tablet Take 10 mg by mouth once daily as needed. acetaminophen (TYLENOL EXTRA STRENGTH) 500 mg tablet Take 500 mg by mouth every 8 hours as needed. aspirin, enteric coated (ASPIRIN, ENTERIC COATED) 81 mg EC tablet TAKE ONE TABLET BY MOUTH EVERY DAY WITH A MEAL ALLERGIES/INTOLERANCES: ALLERGIES Allergen Reactions Adhesive Rash Hydrochlorothiazide Unknown Hydrocodone Itching Iron Diarrhea Ivp Dye [Iodine] Rash, Shortness of Breath Levaquin [Levofloxa* Shortness of Breath Methylprednisone Mental Status Change Percocet [Oxycodone* Itching Sulfa (Sulfonamide * Rash Victoza [Liraglutid* GI Upset, Vomiting ROS: No changes in her extensive review of systems PHYSICAL EXAM: BP 140/66 Pulse 63 Temp 36.4 C (97.6 F) (Temporal) Wt 83.7 kg (184 lb 8 oz) BMI 28.05 kg/m2 Body mass index is 28.05 kg/m . ECO No abnormalities on physical exam DATA REVIEW: I personally reviewed the patient's data and medical records. PERTINENT LABS: Reviewed PERTINENT IMAGING: Reviewed ASSESSMENT AND Plan Stage II colon cancer with preop CEA level of 2.4, T2 lesion with no lymphovascular or perineural invasion. Tumor is of usual pathology of adenocarcinoma with no mucinous or signet-ring features. Number of lymph nodes was very adequate and no loss of mismatch repair. All of which indicate no potential benefit from adjuvant chemotherapy which in itself is 3 to 5% if any. Just to complete all the data I am waiting on the results of the Oncotype which are not available yet. I will call the patientwith the results and obviously if there is any changes of the plan which I do not believe is the case. I scheduled her for follow-up in 3-month. After that I recommend every 6 months oncologic surveillance for 2 years then once a year. We will include CEA with surveillance although obviously her colon cancer was not CEA producing tumor. We will still do it in case a mutant clone that produces CEAevolves which hopefully will not be the case The patient was able to ask questions and these were answered in detail. Cuba Alvares MD cc: Cuba Valenzuela MD [facility] NoteHNO ID: [id number] Author: Cuba Alvares MD Service: ? Author Type: Physician Type: Progress Notes Filed: 12/18/2022 2:41 PM Note Text: SERVICE DATE: December 18, 2022 CHIEF COMPLAINT: Lisbeth Craven is a 62 year old female referred by Daniela Flood, for my opinion regarding the management of colon cancer. The impression and plan will be communicated back via the EMR or under separate cover letter if necessary. PMH, medications and allergies personally reviewed by me today. Any changes documented in appropriate section.. History was obtained from the patient and from review of the patient's old medical records. HISTORY OF PRESENT ILLNESS: Very pleasant 62-year-old white lady who is here with her mother for evaluation and management of newly diagnosed colon cancer. According to the patient it presented as right upper quadrant discomfort-which is unusual. She had diagnostic work-up including colonoscopy that revealed a mass at the right hepatic flexure. No evidence of metastasis on CT scan abdomen pelvis. She underwent laparoscopic colectomy. Sounds like she had bleeding from AV malformations following event as well as detection of tubular adenoma at any rate she has recovered extremely well and is here to discuss pros and cons of potential adjuvant chemotherapy. She is not aware of family history of colon cancer. She quit smoking around 1992. Diagnostic Studies: Reviewed PAST MEDICAL HISTORY: PAST MEDICAL HISTORY Diagnosis Date Diabetes mellitus (HCC) Erythromelalgia (HCC) Fibromyalgia GERD (gastroesophageal reflux disease) Heart attack (HCC) Kidney disease Neuropathy Osteopenia Rheumatoid arthritis (HCC) PAST SURGICAL HISTORY: PAST SURGICAL HISTORY Procedure Laterality Date APPENDECTOMY BACK SURGERY HX x 2 NECK SURGERY HX PAST SURGICAL HISTORY OF Ganglion Cyst removed from wrists AND one under left breast PAST SURGICAL HISTORY OF Heart Stent x 3 PAST SURGICAL HISTORY OF Colon Resection PAST SURGICAL HISTORY OF [place]end[place] surgery both arms REMOVAL GALLBLADDER TONSILLECTOMY HX CURRENT MEDICATIONS: levothyroxine (EUTHYROX) 88 mcg tablet Take 88 mcg by mouth once daily. clopidogrel (PLAVIX) 75 mg tablet Take 75 mg by mouth once daily. carvedilol (COREG) 3.125 mg tablet Take 3.125 mg by mouth twice daily. venlafaxine (EFFEXOR) 75 mg tablet Take 75 mg by mouth once daily. venlafaxine ER (EFFEXOR XR) 150 mg 24 hr capsule Take 150 mg by mouth once daily. glipiZIDE (GLUCOTROL) 10 mg tablet Take 10 mg by mouth twice daily. hydrOXYchloroQUINE (PLAQUENIL) 200 mg tablet Take two tablets by mouth once daily. amLODIPine (NORVASC) 5 mg tablet Take 5 mg by mouth once daily. vitamin b complex tab Take 1 tablet by mouth once daily. lisinopril (ZESTRIL, PRINIVIL) 5 mg tablet Take 5 mg by mouth once daily. famotidine (PEPCID) 40 mg tablet Take 40 mg by mouth once daily. BIOTIN ORAL 5,000 mcg: Take three capsules by mouth once daily. rosuvastatin (CRESTOR) 10 mg tablet Take 10 mg by mouth daily at bedtime. ondansetron (ZOFRAN) 8 mg tablet Take 8 mg by mouth every 8 hours as needed for nausea/vomiting. hyoscyamine sulfate 0.125 mg ODT Dissolve 0.125 mg under the tongue every 6 hours while awake. acetaminophen 300 mg-caffeine 40 mg-butalbital 50 mg (FIORICET) per capsule Take 1 capsule by mouth every 4 hours as needed. valACYclovir (VALTREX) 1 gram Take one tablet by mouth as needed for fever blisters. fluticasone (FLONASE ALLERGY RELIEF) 50 mcg/actuation nasal spray Use 1 [place] in each nostril once daily as needed. simethicone (GAS-X ORAL) Take 2 tablets by mouth as needed. loperamide HCl (IMODIUM A-D) 2 mg tab Take 2 mg by mouth as needed. diphenhydramine HCl (BENADRYL ORAL) Take 1 tablet by mouth as needed. cetirizine (ZYRTEC) 10 mg tablet Take 10 mg by mouth once daily as needed. acetaminophen (TYLENOL EXTRA STRENGTH) 500 mg tablet Take 500 mg by mouth every 8 hours as needed. predniSONE (DELTASONE) 5 mg tablet Take 5 mg by mouth once daily. aspirin, enteric coated (ASPIRIN, ENTERIC COATED) 81 mg EC tablet TAKE ONE TABLET BY MOUTH EVERY DAY WITH A MEAL ALLERGIES/INTOLERANCES: ALLERGIES Allergen Reactions Adhesive Rash Hydrochlorothiazide Unknown Hydrocodone Itching Iron Diarrhea Ivp Dye [Iodine] Rash, Shortness of Breath Levaquin [Levofloxa* Shortness of Breath Methylprednisone Mental Status Change Percocet [Oxycodone* Itching Sulfa (Sulfonamide * Rash Victoza [Liraglutid* GI Upset, Vomiting FAMILY HISTORY: FAMILY HISTORY Problem Relation Age of Onset Heart Father Diabetes Father Hypertension Father Lung Cancer Father Heart Brother Heart Brother SOCIAL HISTORY: Social History Tobacco Use Smoking status: Former Packs/day: 1.00 Years: 15.00 Pack years: 15.00 Types: Cigarettes Quit date: 1992 Years since quittin.2 Smokeless tobacco: Never ROS: Denies hematochezia or melena and no sign (more content not included)... [facility]03-08-2023 History of Present illness Narrative* Cuba Alvares MD - 12/18/2022 2:22 PM EST Images from the original note were not included. SERVICE DATE: December 18, 2022 CHIEF COMPLAINT: Lisbeth Craven is a 62 year old female referred by Daniela Flood, for my opinion regarding the management of colon cancer. The impression and plan will be communicated back via the EMR or under separate cover letter if necessary. PMH, medications and allergies personally reviewed by me today. Any changes documented in appropriate section.. History was obtained from the patient and from review of the patient's old medical records. HISTORY OF PRESENT ILLNESS: Very pleasant 62-year-old white lady who is here with her mother for evaluation and management of newly diagnosed colon cancer. According to the patient it presented as right upper quadrant discomfort-which is unusual. She had diagnostic work-up including colonoscopy that revealed a mass at the right hepatic flexure. No evidence of metastasis on CT scan abdomen pelvis.She underwent laparoscopic colectomy. Sounds like she had bleeding from AV malformations following event as well as detection of tubular adenoma at any rate she has recovered extremely well and is here to discuss pros and cons of potential adjuvant chemotherapy. She is not aware of family history of colon cancer. She quit smoking around 1992. Diagnostic Studies: Reviewed PAST MEDICAL HISTORY: PAST MEDICAL HISTORY Diagnosis Date Diabetes mellitus (HCC) Erythromelalgia (HCC) Fibromyalgia GERD (gastroesophageal reflux disease) Heart attack (HCC) Kidney disease Neuropathy Osteopenia Rheumatoid arthritis (HCC) PAST SURGICAL HISTORY: PAST SURGICAL HISTORY Procedure Laterality Date APPENDECTOMY BACK SURGERY HX x 2 NECK SURGERY HX PAST SURGICAL HISTORY OF Ganglion Cyst removed from wrists & one under left breast PAST SURGICAL HISTORY OF Heart Stent x 3 PAST SURGICAL HISTORY OF Colon Resection PAST SURGICAL HISTORY OF [place] surgery both arms REMOVAL GALLBLADDER TONSILLECTOMY HX CURRENT MEDICATIONS: levothyroxine (EUTHYROX) 88 mcg tablet Take 88 mcg by mouth once daily. clopidogrel (PLAVIX) 75 mg tablet Take 75 mg by mouth once daily. carvedilol (COREG) 3.125 mg tablet Take 3.125 mg by mouth twice daily. venlafaxine (EFFEXOR) 75 mg tablet Take 75 mg by mouth once daily. venlafaxine ER (EFFEXOR XR) 150 mg 24 hr capsule Take 150 mg by mouth once daily. glipiZIDE (GLUCOTROL) 10 mg tablet Take 10 mg by mouth twice daily. hydrOXYchloroQUINE (PLAQUENIL) 200 mg tablet Take two tablets by mouth once daily. amLODIPine (NORVASC) 5 mg tablet Take 5 mg by mouth once daily. vitamin b complex tab Take 1 tablet by mouth once daily. lisinopril (ZESTRIL, PRINIVIL) 5 mg tablet Take 5 mg by mouth once daily. famotidine (PEPCID) 40 mg tablet Take 40 mg by mouth once daily. BIOTIN ORAL 5,000 mcg: Take three capsules by mouth once daily. rosuvastatin (CRESTOR) 10 mg tablet Take 10 mg by mouth daily at bedtime. ondansetron (ZOFRAN) 8 mg tablet Take 8 mg by mouth every 8 hours as needed for nausea/vomiting. hyoscyamine sulfate 0.125 mg ODT Dissolve 0.125 mg under the tongue every 6 hours while awake. acetaminophen 300 mg-caffeine 40 mg-butalbital 50 mg (FIORICET) per capsule Take 1 capsule by mouthevery 4 hours as needed. valACYclovir (VALTREX) 1 gram Take one tablet by mouth as needed for fever blisters. fluticasone (FLONASE ALLERGY RELIEF) 50 mcg/actuation nasal spray Use 1 [place] in each nostril once daily as needed. simethicone (GAS-X ORAL) Take 2 tablets by mouth as needed. loperamide HCl (IMODIUM A-D) 2 mg tab Take 2 mg by mouth as needed. diphenhydramine HCl (BENADRYL ORAL) Take 1 tablet by mouth as needed. cetirizine (ZYRTEC) 10 mg tablet Take 10 mg by mouth once daily as needed. acetaminophen (TYLENOL EXTRA STRENGTH) 500 mg tablet Take 500 mg by mouth every 8 hours as needed. predniSONE (DELTASONE) 5 mg tablet Take 5 mg by mouth once daily. aspirin, enteric coated (ASPIRIN, ENTERIC COATED) 81 mg EC tablet TAKE ONE TABLET BY MOUTH EVERY DAY WITH A MEAL ALLERGIES/INTOLERANCES: ALLERGIES Allergen Reactions Adhesive Rash Hydrochlorothiazide Unknown Hydrocodone Itching Iron Diarrhea Ivp Dye [Iodine] Rash, Shortness of Breath Levaquin [Levofloxa* Shortness of Breath Methylprednisone Mental Status Change Percocet [Oxycodone* Itching Sulfa (Sulfonamide * Rash Victoza [Liraglutid* GI Upset, Vomiting FAMILY HISTORY: FAMILY HISTORY Problem Relation Age of Onset Heart Father Diabetes Father Hypertension Father Lung Cancer Father Heart Brother Heart Brother SOCIAL HISTORY: Social History Tobacco Use Smoking status: Former Packs/day: 1.00 Years: 15.00 Pack years: 15.00 Types: Cigarettes Quit date: 1992 Years since quittin.2 Smokeless tobacco: Never ROS: Denies hematochezia or melena and no significant alteration of bowel habits Denies fever chills or symptoms of infection Denies unusual headaches diplopia ataxia or symptoms to suggest [employer] metastasis Denies dysuria increased urinary frequency hesitancy urgency or hematuria PHYSICAL EXAM: BP 126/62 Pulse 84 Temp 36.3 C (97.3 F) (Temporal) Ht 172.7 cm (5' 8 ) Wt 81.4 kg (179 lb 8 oz) BMI27.29 kg/m2 Body mass index is 27.29 kg/m . ECO No lymphadenopathy No palpable masses No JVD S3 or S4 Lungs are clear to auscultation percussion DATA REVIEW: I personally reviewed the patient's data and medical records. PERTINENT LABS: Reviewed PERTINENT IMAGING: Reviewed ASSESSMENT AND Plan Stage II colon cancer. Preop CEA was 2.4. Tumor is T2 with no lymphovascular or perineural invasion. It is usual pathology with no associated mucinous or signet-ring features. Number of lymph nodes is very adequate. We requested testing for mismatch repair and also Oncotype. From the reliable features present I do not believe she would be a candidate for adjuvant chemotherapy. Nevertheless we will wait for the results of both pending tests. I told her and I will tell her in more depth that evenif there is potential benefit from adjuvant chemotherapy in stage II it is at most 3-5 and again with the tumor characteristics available so far in her case I would strongly doubt that she will be eligible. We will finalize the decision when we have the 2 pending data and obviously after very comprehensive and in-depth conversation with both her and her mom The patient was able to ask questions and these were answered in detail. Thank you for the opportunity of participating in the care of this delightful lady. Cuba Alvares MD cc: Daniela Valenzuela MD [facility] Diagnosis Malignant neoplasm of ascending colon (HCC)- Primary Malignant neoplasm of ascending colon [facility] Diagnosis Malignant neoplasm of ascending colon (HCC)- Primary Malignant neoplasm of ascending colon [facility] Diagnosis Primary hypertension- Primary Unspecified essential hypertension 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 [facility]* Diagnosis Malignant neoplasm of ascending colon (HCC)- Primary Malignant neoplasm of ascending colon documented in this encounter [facility]* Diagnosis Malignant neoplasm of ascending colon (HCC)- Primary Malignant neoplasm of ascending colon documented in this encounter [facility] note* Diagnosis Coronary artery disease, unspecified vessel or lesion type, unspecified whether angina present, unspecified whether burns paiute or transplanted heart Chest pain Unspecified chest pain 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 Chest pain Unspecified chest pain Chest pain, unspecified type [facility]* Diagnosis Menopause- Primary Symptomatic menopausal or female climacteric states Rheumatoid arthritis involving multiple sites, unspecified whether rheumatoid factor present (HCC) Osteopenia of multiple sites Stage 3a chronic kidney disease (HCC) Rheumatoid arthritis involving multiple sites, unspecified whether rheumatoid factor present (HCC) [facility] Diagnosis Rheumatoid arthritis involving multiple sites, unspecified whether rheumatoid factor present (HCC) [facility] Diagnosis Rheumatoid arthritis involving multiple sites, unspecified whether rheumatoid factor present (HCC)- Primary [facility] Diagnosis Coronary artery disease, unspecified vessel or lesion type, unspecified whether angina present, unspecified whether burns paiute or transplanted heart- Primary Angina pectoris, unstable (CMS/HCC) (HCC) Intermediate coronary syndrome [facility] Diagnosis Chest pain, unspecified type [facility] Diagnosis Malignant neoplasm of ascending colon (HCC)- Primary Malignant neoplasm of ascending colon documented in this encounter [facility] note* Diagnosis Coronary artery disease, unspecified vessel or lesion type, unspecified whether angina present, unspecified whether burns paiute or transplanted heart- Primary [facility] Diagnosis Coronary artery disease, unspecified vessel or lesion type, unspecified whether angina present, unspecified whether burns paiute or transplanted heart- Primary 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* Diagnosis Coronary artery disease, unspecified vessel or lesion type, unspecified whether angina present, unspecified whether burns paiute or transplanted heart- Primary Angina pectoris (HCC) Other and unspecified angina pectoris [facility] Diagnosis Coronary artery disease, unspecified vessel or lesion type, unspecified whether angina present, unspecified whether burns paiute or transplanted heart- Primary Angina pectoris (HCC) Other and unspecified angina pectoris documented 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 Diagnosis Coronary artery disease, unspecified vessel or lesion type, unspecified whether angina present, unspecified whether burns paiute or transplanted heart- Primary Angina pectoris (HCC) Other and unspecified angina pectoris documented 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* Diagnosis Malignant neoplasm of ascending colon (HCC) Malignant neoplasm of ascending colon [facility]* Diagnosis Menopause Symptomatic menopausal or female climacteric states Osteopenia of multiple sites [facility]* Diagnosis Coronary artery disease, unspecified vessel or lesion type, unspecified whether angina present, unspecified whether burns paiute or transplanted heart- Primary Angina pectoris (HCC) Other and unspecified angina pectoris documented 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 (n[facility] Consultation (Routine) - Pending Review Specialty Diagnoses / Procedures Referred By Brittany corral Referred To Contact Cardiology Diagnoses Angina pectoris, unstable (CMS/HCC) (HCC) Procedures LA OFFICE/OUTPATIENT [facility] 60-74 MINUTES Talisha Cardozo, [employer] - [employer]NF[employer]CEMENT OFFICER [address] [id number] Referral ID Status Reason Start Date Expiration Date Visits Requested Visits Authorized [id number] Pending Review Specialty Services Required 06/12/2023 06/11/2024 1 1 [facility] for referral (narrative)* Consultation (Routine) - Pending Review Specialty Diagnoses / Procedures Referred By Contac t Referred To Contact Cardiology Diagnoses Coronary artery disease, unspecified vessel or lesion type, unspecified whether angina present, unspecified whether burns paiute or transplanted heart Procedures [place] OFFICE/OUTPATIENT [facility] 60-74 MINUTES Satish Santos MD [address] [place] [address] [place] [phone] Referral ID Status Reason Start Date Expiration Date Visits Requested Visits Authorized [id number] Pending Review Specialty Services Required 07/11/2023 07/10/2024 1 1 [facility] for referral (narrative)* Consultation (Routine) - Pending Review Specialty Diagnoses / Procedures Referred By Contac t Referred To Contact Cardiology Diagnoses Coronary artery disease, unspecified vessel or lesion type, unspecified whether angina present, unspecified whether burns paiute or transplanted heart Angina pectoris (HCC) Procedures [facility] OFFICE/OUTPATIENT [facility] 60-74 MINUTES Satish Santos MD [address] [address] [place] [phone] Referral ID Status Reason Start Date Expiration Date Visits Requested Visits Authorized [id number] Pending Review Specialty Services Required 07/15/2023 07/14/2024 1 1 * Consultation (Routine) - Pending Review Specialty Diagnoses / Procedures Referred By Contac t Referred To Contact Cardiology Diagnoses Coronary artery disease, unspecified vessel or lesion type, unspecified whether angina present, unspecified whether burns paiute or transplanted heart Procedures [facility] OFFICE/OUTPATIENT [facility] 60-74 MINUTES Satish Santos MD 95 [facility] [address] [place] [address] [place] [address] [place] [address] Referral ID Status Reason Start Date Expiration Date Visits Requested Visits Authorized [id number] Pending Review Specialty Services Required 07/11/2023 07/10/2024 1 1 [facility] for referral (narrative)* Consultation (Routine) - Pending Review Specialty Diagnoses / Procedures Referred By Contac t Referred To Contact Cardiology Diagnoses Angina pectoris (HCC) 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 [place] [address] Referral ID Status Reason Start Date Expiration Date Visits Requested Visits Authorized [id number] Pending Review Specialty Services Required 08/18/2023 08/17/2024 1 1 [facility] Summary Purpose Family History No Family History Records FoundNo Family History Records FoundNo Family History Records FoundNo Family History Records FoundNo Family History Records Found Advance Directives Latest Code Status on File Code Status Date Activated Date Inactivated Comments Full Code 06/05/2023 1:55 PM Latest Code Status on File Code Status Date Activated Date Inactivated Comments Full Code 06/05/2023 1:55 PM 06/06/2023 9:27 PM Latest Code Status on File Code Status Date Activated Date Inactivated Comments Full Code 06/05/2023 1:55 PM 06/06/2023 9:27 PM Reason for Referral Specialty Diagnoses / Procedures Referred By Contac t Referred To Contact CT IMAGING Diagnoses Malignant neoplasm of ascending colon (HCC) Procedures CT ABD/PEL W IVCON CT ABD & PELVIS W/CONTRAST Eliecer Vasquez MD [address] [place] [address] Ct Imaging Referral ID Status Reason Start Date Expiration Date Visits Requested Visits Authorized [id number] Additional Clinical Info Needed Auto-Generat ed Referral 04/04/2023 05/03/2024 1 1 Specialty Diagnoses / Procedures Referred By Contac t Referred To Contact Radiology Diagnoses Menopause Osteopenia of multiple sites Procedures BD BONE DENSITY SURVEY Patrick Wu MD [address] [place] [address] [facility] BONE DENSITY [address] [place] [address] Referral ID Status Reason Start Date Expiration Date V isits Requested Visits Authorized [id number] Authorized 06/09/2023 06/08/2024 1 1 Specialty Diagnoses / Procedures Referred By Contac t Referred To Contact Radiology Diagnoses Rheumatoid arthritis involving multiple sites, unspecified whether rheumatoid factor present (HCC) Procedures XR FOOT RIGHT 3 VIEWS Patrick Wu MD [address] [place] [address] [facility] DIAGNOSTIC RADIOLOGY [address] [place] [address] [place] [address] Referral ID Status Reason Start Date Expiration Date Visits Re quested Visits Authorized [id number] Closed 06/09/2023 06/08/2024 1 1 Specialty Diagnoses / Procedures Referred By Contac t Referred To Contact Radiology Diagnoses Rheumatoid arthritis involving multiple sites, unspecified whether rheumatoid factor present (HCC) Procedures XR FOOT LEFT 3 VIEWS Patrick Wu MD [address] [place] [address] [facility] DIAGNOSTIC RADIOLOGY [address] [place] [address] [place] [address] Referral ID Status Reason Start Date Expiration Date Visits Re quested Visits Authorized [id number] Closed 06/09/2023 06/08/2024 1 1 Specialty Diagnoses / Procedures Referred By Contac t Referred To Contact Radiology Diagnoses Rheumatoid arthritis involving multiple sites, unspecified whether rheumatoid factor present (HCC) Procedures XR ARTHRITIS SURVEY HAND/WRIST Patrick Wu MD [address] [place] [address] S DIAGNOSTIC RADIOLOGY [address] [place] [address] [place] [address] Referral ID Status Reason Start Date Expiration Date Visits Re quested Visits Authorized [id number] Closed 06/09/2023 06/08/2024 1 1 Specialty Diagnoses / Procedures Referred By Contac t Referred To Contact CT IMAGING Diagnoses Malignant neoplasm of ascending colon (HCC) Procedures CT ABD/PEL WO IVCON CT ABD & PELVIS W/O CONTRAST Eliecer Vasquez MD [address] [place] [address] Ct Imaging [facility] [place] [facility]95 Referral ID Status Reason Start Date Expiration Date V isits Requested Visits Authorized [id number] Closed Auto-Generate d Referral 04/17/2023 06/16/2023 2 2 Specialty Diagnoses / Procedures Referred By Contac t Referred To Contact CT IMAGING Diagnoses Malignant neoplasm of ascending colon (HCC) Procedures CT CHEST WO IVCON DIAGNOSTIC COMPUTED TOMOGRAPHY THORAX W/O CNTRST Eliecer Vasquez MD [address] [place] [address] Ct Imaging [facility] [facility]95 Referral ID Status Reason Start Date Expiration Date V isits Requested Visits Authorized [id number] Closed Auto-Generate d Referral 04/17/2023 06/16/2023 1 1 Referral ID Status Reason Start Date Expiration Date Visits Re quested Visits Authorized [id number] Closed 06/09/2023 06/08/2024 1 1 Additional Source Comments Source Comments (unrecognize d section and content) In the event this informatio n is protected by the Federal Confidentiality of Alcohol and Drug Abuse Patient Records regulations: The Federal rules restrict any use of the information to criminally investigate or prosecute any alcohol or drug abuse patient.[facility] the event this information is protected by the Federal Confidentiality of Alcohol and Drug Abuse Patient Records regulations: The Federal rules restrict any use of the information to criminally investigate or prosecute any alcohol or drug abuse patient.[facility] the event this information is protected by the Federal Confidentiality of Alcohol and Drug Abuse Patient Records regulations: The Federal rules restrict any use of the information to criminally investigate or prosecute any alcohol or drug abuse patient.[facility] the event this information is protected by the Federal Confidentiality of Alcohol and Drug Abuse Patient Records regulations: The Federal rules restrict any use of the information to criminally investigate or prosecute any alcohol or drug abuse patient.[facility] Hospital[facility] the event this information is protected by the Federal Confidentiality of Alcohol and Drug Abuse Patient Records regulations: The Federal rules restrict any use of the information to criminally investigate or prosecute any alcohol or drug abuse patient.[facility] the event this information is protected by the Federal Confidentiality of Alcohol and Drug Abuse Patient Records regulations: The Federal rules restrict any use of the information to criminally investigate or prosecute any alcohol or drug abuse patient.[facility] Hospital[facility] the event this information is protected by the Federal Confidentiality of Alcohol and Drug Abuse Patient Records regulations: The Federal rules restrict any use of the information to criminally investigate or prosecute any alcohol or drug abuse patient.[facility] the event this information is protected by the Federal Confidentiality of Alcohol and Drug Abuse Patient Records regulations: The Federal rules restrict any use of the information to criminally investigate or prosecute any alcohol or drug abuse patient.[facility] the event this information is protected by the Federal Confidentiality of Alcohol and Drug Abuse Patient Records regulations: The Federal rules restrict any use of the information to criminally investigate or prosecute any alcohol or drug abuse patient.[facility] INFORMATION SOURCE (unrecogn ized section and content) DATE CREATED AUTHOR AUTHOR'S ORGANIZ ATION 04/19/2022 [facility] DATE CREATED AUTHOR AUTHOR'S ORGANIZ ATION 09/06/2023 [facility] DATE CREATED AUTHOR AUTHOR'S ORGANIZ ATION 10/26/2023 [facility] DATE CREATED AUTHOR AUTHOR'S ORGANIZ ATION 10/30/2023 [facility] Reason for Visit (unrecogniz ed section and content) Reason Comments Established Patient Reason Comments Follow-up Reason Comments Follow Up Reason Comments Patient Question Specialty Diagnoses / Procedures Referred By Contac t Referred To Contact Diagnoses Chest pain Chest discomfort Chest pain [R07.9] Procedures Left heart cath / coronary angiography Satish Santos MD [address] [address] Referral ID Status Reason Start Date Expiration Date Visits Re quested Visits Authorized [id number] 1 1 Reason Comments New patient, to establish relationship Specialty Diagnoses / Procedures Referred By Contac t Referred To Contact Radiology Diagnoses Rheumatoid arthritis involving multiple sites, unspecified whether rheumatoid factor present (HCC) Procedures XR FOOT RIGHT 3 VIEWS Patrick Wu MD [address] [place] [address] [facility] DIAGNOSTIC RADIOLOGY [address] [place] [address] Referral ID Status Reason Start Date Expiration Date Visits Re quested Visits Authorized [id number] Closed 06/09/2023 06/08/2024 1 1 Reason Comments Hospital Follow-up Reason Onset Date Comments Reference 99 06/20/2023 Reason Onset Date Comments Orders 06/06/2023 Reason Onset Date Comments Orders 06/06/2023 Reason Onset Date Comments Orders 06/06/[address] Specialty Diagnoses / Procedures Referred By Contac t Referred To Contact CT IMAGING Diagnoses Malignant neoplasm of ascending colon (HCC) Procedures CT ABD/PEL WO IVCON CT ABD & PELVIS W/O CONTRAST Eliecer Vasquez MD [address] [place] [address] Ct Imaging [place] [address] Referral ID Status Reason Start Date Expiration Date V isits Requested Visits Authorized [id number] Closed Auto-Generate d Referral 04/17/2023 06/16/2023 2 2 Specialty Diagnoses / Procedures Referred By Brittany corral Referred To Contact Radiology Diagnoses Menopause Osteopenia of multiple sites Procedures BD BONE DENSITY SURVEY Patrick Wu MD [address] [place] [address] [facility] BONE DENSITY [address] [place] [address] Referral ID Status Reason Start Date Expiration Date Visits Re quested Visits Authorized [id number] Closed 06/09/2023 06/08/2024 1 1 Reason Comments Discuss results test/procedures Reason Comments 6 Month Follow-up Care Teams (unrecognized sec tion and content) Latex Spooler Relationship Specialty Start Date End Date Cristel Valenzuela MD [address] [place] [facility] [place] [address] PCP - General Internal Medicine 12/18/22 Cuba Alvares MD [address] [place] [address] Oncology 12/18/22 Latex Spooler Relationship Specialty Start Date End Date Cristel Valenzuela [address] [facility] [address] [place] [address] PCP - General Internal Medicine 02/24/23 Latex Spooler Relationship Specialty Start Date End Date Cristel Valenzuela MD [address] [place] [address] PCP - General Internal Medicine 12/18/22 Cuba Alvares MD [address] [place], [place] [address] Oncology 12/18/22 Latex Spooler Relationship Specialty Start Date End Date Cristel Valenzuela MD [address] [place] [address] PCP - General Internal Medicine 12/18/22 Cuba Alvares MD [address] [place], [place] [address] Oncology 12/18/22 Latex Spooler Relationship Specialty Start Date End Date Cristel Valenzuela MD [address] [place] [address] PCP - General Internal Medicine 12/18/22 Cuba Alvares MD [address] [place] [address] Oncology 12/18/22 Latex Spooler Relationship Specialty Start Date End Date Cristel Valenzuela [address] [place] [address] PCP - General Internal Medicine 02/24/23 Latex Spooler Relationship Specialty Start Date End Date Cristel Valenzueal [address] [place] [address] PCP - General Internal Medicine 02/24/23 Latex Spooler Relationship Specialty Start Date End Date Cristel Valenzuela [address] [place] [address] PCP - General Internal Medicine 02/24/23 Cristel Valenzuela [address] [place] [address] 02/24/23 Latex Spooler Relationship Specialty Start Date End Date Cristel Valenzuela [address] [place] [address] PCP - General Internal Medicine 02/24/23 Cristel Valenzuela [address] [place] [address] 02/24/23 Latex Spooler Relationship Specialty Start Date End Date Patrick Wu MD [address] [place] [address] Physician Rheumatology 06/14/23 Latex Spooler Relationship Specialty Start Date End Date Cristel Valenzuela MD [address] [place] [address] [place] [address] [address] [place], [place] [address] PCP - General Internal Medicine 12/18/22 Cuba Alvares MD [address] [place], [place] [address] Oncology 12/18/22 Latex Spooler Relationship Specialty Start Date End Date Cristel Valenzuela [address] [place] [phone] PCP - General Internal Medicine 02/24/23 Cristel Valenzuela [address] [place] [address] 02/24/23 Latex Spooler Relationship Specialty Start Date End Date Patrick Wu MD [address] [place] [address] Physician Rheumatology 06/14/23 Latex Spooler Relationship Specialty Start Date End Date Cristel Valenzuela [address] [place] [phone] PCP - General Internal Medicine 02/24/23 Cristel Valenzuela [address] [place] [address] 02/24/23 Latex Spooler Relationship Specialty Start Date End Date Cristel Valenzuela [address] [place] [address] PCP - General Internal Medicine 02/24/23 Cristel Valenzuela [address] [place] [address] 02/24/23 Latex Spooler Relationship Specialty Start Date End Date Cristel Valenzuela [address] [place] [phone] PCP - General Internal Medicine 02/24/23 Cristel Valenzuela [address] [place] [address] 02/24/23 Latex Spooler Relationship Specialty Start Date End Date Cristel Valenzuela [address] [place] [phone] PCP - General Internal Medicine 02/24/23 Cristel Valenzuela [address] [place] [address] 02/24/23 Latex Spooler Relationship Specialty Start Date End Date Patrick Wu MD [address] [place] [address] Physician Rheumatology 06/14/23 Latex Spooler Relationship Specialty Start Date End Date Cristel Valenzuela [address] [place] [phone] PCP - General Internal Medicine 02/24/23 Cristel Valenzuela [address] [place] [address] 02/24/23 Latex Spooler Relationship Specialty Start Date End Date Cristel Valenzuela [address] [place] [address] PCP - General Internal Medicine 02/24/23 Cristel Valenzuela [address] [place] [address] 02/24/23 Latex Spooler Relationship Specialty Start Date End Date Cristel Valenzuela [address] [facility] [address] [place] [address] PCP - General Internal Medicine 02/24/23 Cristel Valenzuela [address] [place] [address] 02/24/23 Latex Spooler Relationship Specialty Start Date End Date Cristel Valenzuela [address] [facility] [address] [place] [phone] PCP - General Internal Medicine 02/24/23 Cristel Valenzuela [address] [place] [address] 02/24/23 Latex Spooler Relationship Specialty Start Date End Date Cristel Valenzuela MD [address] [place], [place] [address] PCP - General Internal Medicine 12/18/22 Cuba Alvares MD [address] [place], [place] [address] Oncology 12/18/22 07/01/23 Latex Spooler Relationship Specialty Start Date End Date Patrick Wu MD [address] [place] [address] Physician Rheumatology 06/14/23 Latex Spooler Relationship Specialty Start Date End Date Cristel Valenzuela [address] [place] [phone] PCP - General Internal Medicine 02/24/23 Cristel Valenzuela [address] [place] [address] 02/24/23 Latex Spooler Relationship Specialty Start Date End Date Patrick Wu MD [address] [place] [address] Physician Rheumatology 06/14/23 Latex Spooler Relationship Specialty Start Date End Date Cristel Valenzuela [address] [place] [phone] PCP - General Internal Medicine 02/24/23 Cristel Valenzuela [address] [place] [address] 02/24/23 Latex Spooler Relationship Specialty Start Date End Date Patrick Wu MD [address] [place] [address] Physician Rheumatology 06/14/23 Scheduled Active and Recently Administ ered Medications (unrecognized section and content) Continuous Medication Order 06/04/2023 06/05/2023 06/06/2023 sodium chloride 0.9 % infusion 75 mL/hr, IntraVENous, Continuous, Starting on Fri06/06/23 at 0945 1546 (New Bag - Prov ider: Jordan Navarro, SALLY)[id number] (Rate/Dose Verify - Provider: Jordan Navarro RN) PRN Medication Order 06/04/2023 06/05/2023 06/06/2023 acetaminophen (Tylenol) suppository 650 mg(Linked Group 1) 650 mg, Rectal, Every 6 hours PRN, mild pain (1-3), fever, For temp greater than 100.4 F (38 C), Starting on Romelia 06/05/23 at 1344, Administer if oral route cannot be used. Maximum dose of acetaminophen is 4000 mg from all sources in 24 hours. acetaminophen (Tylenol) tablet 650 mg(Linked Group 1) 650 mg, Oral, Every 6 hours PRN, mild pain (1-3), fever, For temp greater than 100.4 F (38 C), Starting on Romelia 06/05/23 at 1344, Maximum dose of acetaminophen is 4000 mg from all sources in 24 hours. fentaNYL (Sublimaze) injection (CANCELED) IntraVENous, As needed, Starting on Fri06/06/23 at 1343, Intraprocedure 1343 (Given - Provid er: Tiffanie Mackay RN) fentaNYL (Sublimaze) injection (CANCELED) IntraVENous, As needed, Starting on Fri06/06/23 at 1332, Intraprocedure 1332 (Given - Provid er: Mitra Mcfarland RN) heparin injection (CANCELED) IntraVENous, As needed, Starting on Fri06/06/23 at 1341, Intraprocedure 1344 (Given - Provid er: Mitra Mcfarland RN) hyoscyamine (Levsin) SL tablet 125 mcg 125 mcg, Oral, Every 4 hours PRN, cramping, Starting on Romelia 06/05/23 at 1406 iopamidol (Isovue-300) 61 % injection (CANCELED) As needed, Starting on Fri06/06/23 at 1355, Intraprocedure 1355 (Given - Provid er: Maddi Mitchell MD) lidocaine (Xylocaine) 1 % injection (CANCELED) As needed, Starting on Fri06/06/23 at 1333, Intraprocedure 1333 (Given - Provid er: Tyrel Miles MD) midazolam (Versed) injection (CANCELED) IntraVENous, As needed, Starting on Fri06/06/23 at 1344, Intraprocedure 1344 (Given - Provid er: Tiffanie Mackay RN) nitroglycerin (Nitrostat) SL tablet 0.4 mg 0.4 mg, SubLINGual, Every 5 min PRN, chest pain, Starting on Romelia 06/05/23 at 1355, May administer up to 3 doses per episode. NITROGLYCERIN 1000 MCG / 10 ML SYRINGE (CHARGE ONLY) (CANCELED) As needed, Starting on Fri06/06/23 at 1334, Intraprocedure 1334 (Given - Provid er: Tyrel Miles MD) ondansetron (Zofran) injection 4 mg(Linked Group 2) 4 mg, IntraVENous, Every 6 hours PRN, nausea, vomiting, Starting on Romelia 06/05/23 at 1344, 1st Line. Give IV if patient is unable to take orally. If inadequate response within 60 minutes, proceed to next-line agent or contact provider if no further options ordered. 926 (Given - Provid er: Jordan Navarro, RN) ondansetron ODT (Zofran-ODT) disintegrating tablet 4 mg(Linked Group 2) 4 mg, Oral, Every 8 hours PRN, nausea, vomiting, Starting on Romelia 06/05/23 at 1344, 1st Line. If inadequate response within 60 minutes, proceed to next-line agent or contact provider if no further options ordered. Patient should allow tablet to dissolve on tongue. Do not remove from blister pack until just before administering. 926 (See Alternativ e - Provider: Jordan Navarro, RN) polyethylene glycol (PEG) 3350 (Miralax) packet 17 g 17 g, Oral, Daily PRN, constipation, Starting on Romelia 06/05/23 at 1344, 1st line for treatment of constipation - give scheduled if no bowel movement in past 24 hours. simethicone (Mylicon,Gas-X) capsule 125 mg 125 mg, Oral, Every 6 hours PRN, flatulence, Starting on Romelia 06/05/23 at 1406 sodium chloride 0.9 % infusion 30 mL/hr, IntraVENous, PRN, if patient receiving piggyback infusions and maintenance fluids are not ordered OR KVO fluids to protect IV site / prevent frequent line interruptions / long duration, Starting on Romelia 06/05/23 at 1344, For piggyback infusion, administer at same rate as piggyback for a total of 25 mL. Enter 25 mL into dose field and piggyback rate into rate field of order. If piggyback is infusing at a rate less than 100 mL/hr, enter 25 mL into dose field and 100 mL/hr into rate field of order. For KVO fluids, enter rate of 20 mL/hr or less into rate field of order. sodium chloride 0.9% (NS) flush 5-40 mL 5-40 mL, IntraVENous, PRN, line care, After every IV line use, Starting on Fri06/05/23 at 1344, For Line Patency: Peripheral IV = 5 mL; Midline or Central Line = 10 mL/lumen. If following IV push medication, administer flush at same rate as the IV push. Flush volume is determined by type of infusion therapy being given. For non-viscous solutions use: Peripheral IV = 5 mL Midline or Central Line = 10 mL/lumen For viscous solutions (i.e. blood components, parenteral nutrition, contrast media, or after obtaining blood sample) use: Peripheral IV = 10 mL Midline or Central Line = 20 mL/lumen verapamil (Isoptin) injection (CANCELED) As needed, Starting on Fri06/06/23 at 1334, Intraprocedure 1334 (Given - Provid er: Tyrel Miles MD) Linked Groups Order Group 1: acetaminophen (Tylenol) tablet 650 mgJump to med 650 mg, Oral, Every 6 hours PRN, mild pain (1-3), fever, For temp greater than 100.4 F (38 C), Starting on Fri06/05/23 at 1344
Maximum dose of acetaminophen is 4000 mg from all sources in 24 hours.
Or acetaminophen (Tylenol) suppository 650 mgJump to med 650 mg, Rectal, Every 6 hours PRN, mild pain (1-3), fever, For temp greater than 100.4 F (38 C), Starting on Fri06/05/23 at 1344
Administer if oral route cannot be used. Maximum dose of acetaminophen is 4000 mg from all sources in 24 hours.
Group 2: ondansetron ODT (Zofran-ODT) disintegrating tablet 4 mgJump to med 4 mg, Oral, Every 8 hours PRN, nausea, vomiting, Starting on Fri06/05/23 at 1344
1st Line. If inadequate response within 60 minutes, proceed to next-line agent or contact provider if no further options ordered. Patient should allow tablet to dissolve on tongue. Do not remove from blister pack until just before administering.
Or ondansetron (Zofran) injection 4 mgJump to med 4 mg, IntraVENous, Every 6 hours PRN, nausea, vomiting, Starting on Romelia 06/05/23 at 1344
1st Line. Give IV if patient is unable to take orally. If inadequate response within 60 minutes, proceed to next-line agent or contact provider if no further options ordered.
FOR RECORDS PERTAINING TO PATIENTS WHO ARE OR HAVE BEEN ENROLLED IN A CHEMICAL DEPENDENCY/SUBSTANCEABUSE PROGRAM, SOME INFORMATION MAY BE OMITTED. This clinical summary was aggregated from multiple sources. Caution should be exercised in using it in the provision of clinical care. This summary normalizes information from multiple sources, and as a consequence, information in this document may materially change the coding, format and clinical context of patient data. In addition, data may be omitted in some cases. CLINICAL DECISIONS SHOULD BE BASED ON THE PRIMARY CLINICAL RECORDS. [facility]. provides no warranty or guarantee of the accuracy or completeness of information in this document.
[2023-11-27] MEDS: Lactated Ringers 1,000 ML 15 ML IV (06:30)
[2023-11-27 06:50] VITALS: BP 133/50; PULSE 60; RESP 16; TEMP 36.1; O2SAT 96; BMI 27.8
[2023-11-27 07:25] LABS: Bedside Glucose 192 mg/dL (74-106)
--- NOTE | 2023-11-27 07:26 | PCM.HP.STD ---
[facility] - General General Date of Admission: 11/27/23 Date of Service: 11/27/23 Chief Complaint: Screening colonoscopy [facility] Narrative ESTELLA SU, is a 63 F who presents today for screening colonoscopy. She has a past medical history of colon cancer status post removal of hepatic flexure mass. She also has a past medical history of CAD status post PTCA with stents and acute blood loss anemia secondary to antiplatelet therapy. She is on aspirin and Plavix. She also has a diagnosis of type 2 diabetes and metabolic syndrome. At this time she denies any chest pain, shortness of breath, nausea, headache or dizziness. [facility] Medical History (Updated 11/15/23 @ 12:02 by RUSTY Mohan) Acid reflux Acute blood loss anemia Ambulates with cane Anemia Anxiety Breast cyst Cancer Cardiology follow-up encounter Carpal tunnel syndrome Chest pain CKD (chronic kidney disease), stage III Diabetes Dietary restriction Erythromelalgia Excessive bleeding Fibromyalgia Foot fracture, left Foot fracture, right Former smoker Gastric reflux Gastroenteritis Hepatitis High cholesterol History of chronic kidney disease History of COVID-19 History of diabetes mellitus History of echocardiogram History of edema History of heart attack History of irregular heartbeat History of renal disease History of steroid therapy Hypertension Infectious mononucleosis Injury of head and neck Leg cramps Low iron Measles Migraines Neuropathy Osteopenia Post-menopausal Restless legs Rheumatoid arthritis Seasonal allergies Shingles Shortness of breath on exertion Small fiber neuropathy Thyroid disease Uses wheelchair UTI (urinary tract infection) Walker as ambulation aid Home Medications nystatin 100,000 unit/gram topical powder (Nystop) 100,000 gm topical PRN PRN Skin Cleansing 04/02/22 [History Last Taken Unknown] biotin 5,000 mcg disintegrating tablet 15,000 mcg PO DAILY SUPPLEMENT 08/26/22 [History Last Taken 12/04/22] vitamin B complex (B Complex-Vitamin B12 tablet) 1 tab PO DAILY SUPPLEMENT 08/26/22 [History Last Taken 11/26/23] lisinopril 5 mg tablet 5 mg PO QHS BP 10/31/22 [History Last Taken 11/26/23] glipizide 10 mg tablet, extended release 24 hr 10 mg PO BID DIABETIC 11/05/22 [History Last Taken 11/25/23] sennosides 8.6 mg-docusate sodium 50 mg tablet (Stool Softener-Stimulant Laxative) 2 tab PO BID PRN PRN Constipation #0 tabs 11/27/22 [Rx Last Taken 11/26/23] fluticasone propionate 50 mcg/actuation nasal spray,suspension 1 spray intranasal BID PRN Sinus Symptoms 12/05/22 [History Last Taken 12/04/22] valacyclovir 1 gram tablet (Valtrex) 1,000 mg PO DAILY PRN outbreak #20 tabs 04/03/23 [Rx Last Taken Unknown] pen needle, diabetic 31 gauge x 3/16 (Sure-Fine Pen [place]) #100 ea 05/20/23 [Rx Last Taken Unknown] hydroxychloroquine 200 mg tablet 200 mg PO BID RA #60 tabs 05/27/23 [Rx Last Taken 11/26/23] carvedilol 3.125 mg tablet 6.25 mg PO BID BP/HEART 06/11/23 [History Last Taken 11/27/23 05:43] rosuvastatin 10 mg tablet (Crestor) 20 mg PO QHS CHOLESTEROL 06/11/23 [History Last Taken 11/26/23] metformin 500 mg tablet 500 mg PO BID #180 tabs 08/27/23 [Rx Last Taken 11/25/23] levothyroxine 88 mcg tablet (Euthyrox) 88 mcg PO DAILY THYROID #90 tabs 09/03/23 [Rx Last Taken 11/27/23 05:46] calcium carbonate 600 mg calcium (1,500 mg) tablet (Calcium) 600 mg PO DAILY 09/10/23 [History Last Taken 11/26/23] prednisone 1 mg tablet 1 mg PO DAILY 09/10/23 [History Last Taken 11/25/23] amlodipine 10 mg tablet 10 mg PO BID BP #90 tabs 10/01/23 [Rx Last Taken 11/27/23 05:42] ondansetron HCl 8 mg tablet 8 mg PO Q6H PRN nausea and vomiting #20 tabs 10/22/23 [Rx Last Taken 11/26/23] aspirin 81 mg capsule 81 mg PO DAILY 11/14/23 [History Last Taken 11/25/23] famotidine 40 mg tablet 40 mg PO QHS 11/14/23 [History Last Taken 11/26/23] isosorbide mononitrate 30 mg tablet,extended release 24 hr 30 mg PO .NOON 11/14/23 [History Last Taken 11/26/23] venlafaxine 150 mg capsule,extended release 24 hr (Effexor XR) 150 mg PO DAILY #90 caps 11/21/23 [Rx Last Taken 11/26/23] venlafaxine 75 mg tablet 75 mg PO DAILY #90 tabs 11/21/23 [Rx Last Taken 11/26/23] clopidogrel 75 mg tablet 75 mg PO DAILY BLOOD THINNER #90 tabs 11/24/23 [Rx Last Taken 11/20/23] Allergy/AdvReac Type Severity Reaction Status Date / Time iron Allergy Severe Other Verified 11/27/23 06:41 Iodinated Contrast Media Allergy Intermediate Hives Verified 11/27/23 06:41 [IVP dye] Seasonal Allergies: Uncoded Allergy Mild Hives Verified 11/27/23 06:41 levofloxacin [From Levaquin] Allergy PT UNSURE Verified 11/27/23 06:41 OF REACTION liraglutide [From Victoza] Allergy dehydration Verified 11/27/23 06:41 - ended up in hospital methylprednisolone AdvReac Intermediate HALLUCINATI Verified 11/27/23 06:41 [From Solu-Medrol] ONS adhesive AdvReac Rash Verified 11/27/23 06:41 hydrochlorothiazide AdvReac pt can tke Verified 11/27/23 06:41 tablet, but not capsule hydrocodone AdvReac Itching Verified 11/27/23 06:41 oxycodone [From Percocet] AdvReac Itching Verified 11/27/23 06:41 Family History Grandfather Cancer Heart disease Father Cancer Heart disease Diabetes Uncle Cancer Aunt Cancer Brother Heart disease Surgical History (Updated 11/14/23 @ 14:19 by Basia García) H/O heart artery stent History of cardiac catheterization History of colectomy History of lumbar laminectomy Hx of appendectomy Hx of cholecystectomy Hx of colonoscopy Hx of fusion of cervical spine Hx of release of tendon Hx of tonsillectomy Social History household members: family housing: house number of children: 0 current occupational status: disabled Smoking Status: Former smoker alcohol intake: never substance use type: does not use caffeine: Yes Type: carbonated beverages and tea what type of physical activity do you participate in: none seatbelt use: always do you feel safe at home: Yes additional social history: ROS ROS Narrative All review of systems were negative except as mentioned above in the history of present illness and the other review of systems. Vital Signs Vital Signs Vital Signs: 11/27/23 06:49 11/27/23 06:50 Temperature 97.0 F L Temperature Source Temporal Pulse Rate 60 Respiratory Rate 16 Respiratory Pattern Normal Blood Pressure 133/50 H Blood Pressure Mean 77 Blood Pressure Source Monitor Blood Pressure Position Semi-Fowlers Blood Pressure Location Right Arm Pulse Ox 96 Oxygen Delivery Method Room Air Weight Weight: 183 lb Body Mass Index (BMI) 27.8 Physical Exam Const alert and no apparent distress Constitutional Narrative: Pale HEENT head/scalp atraumatic and moist oral mucous membranes Resp normal respiratory effort, no retractions, no use of accessory muscles and clear to auscultation bilaterally Cardio regular rate, regular rhythm, S1 normal heart sound and S2 normal heart sound GI normal to inspection, nondistended, normoactive bowel sounds, soft to palpation, non-tender and non-distended Extremity normal to inspection Neuro oriented x3 Results Lab / Micro Data Labs: Laboratory Results - last 24 hr 11/27/23 06:40: POC Glucose 192 H Assessment & Plan Assessment/Plan (1) Colon cancer: QUALIFIERS: Colon location: ascending Qualified Code(s): C18.2 - Malignant neoplasm of ascending colon PLAN: She was explained alternatives, risk, benefits including not withstanding bleeding, infection, sepsis, perforation, need for emergent surgery and . She will have an ASA of 3.
--- NOTE | 2023-11-27 07:30 | COLBX_PTH ---
PATHOLOGY RESULTS PATIENT: ESTELLA SU LOC: EN U#:[id number] AGE/SX: 63/F ROOM: RE11/27/[address]: Dr. Shaun Suarez DO : 1960 BED: DIS: 11/27/2023 SPEC #: [id number] RECD: 11/27/23 10:26 STATUS: JAYSHREE REMireya #: [id number] LANRE: 11/27/23 07:[address]: Shaun Suarez DEPT: SURGICAL PATHOLOGY RECD BY: Marycarmen De La Vega ENTERED: 11/27/23 11:23 SP TYPE: COLON BX OTHR DR: Dr. Kimi López MD Tissues: COLON BIOPSY Transverse colon COLON BIOPSY Procedures: Surgery Specimen Level IV HEADER OPERATION: Colonoscopy with biopsy PRE-OP DIAGNOSIS: Colon cancer TISSUE SUBMITTED: A - Anastomosis site, B - Colon polyp transverse colon, C - Second anastomosis site MICROSCOPIC DIAGNOSIS A. Anastomotic site, biopsy: Mild architectural change. No evidence of malignancy. B. Transverse colon polyp, biopsy: Fragments of tubular adenoma. C. Second anastomotic site, biopsy: Focal chronic inflammation. No evidence of malignancy. AM:vicente 12/01/2023 MICROSCOPIC DESCRIPTION Slides are reviewed. GROSS DESCRIPTION A - Received in fixative is one container labeled with the patient's name and designated anastomosis site. The specimen consists of two irregular fragments of light emery soft tissue that in aggregate measure 0.6 x 0.6 x 0.1 cm. The specimen is totally submitted in one cassette. B - Received in fixative is one container labeled with the patient's name and designated colon polyp transverse colon. The specimen consists of two irregular fragments of light emery soft tissue that in aggregate measure 0.8 x 0.4 x 0.1 cm. The specimen is totally submitted in one cassette. C - Received in fixative is one container labeled with the patient's name and designated second anastomosis site. The specimen consists of multiple irregular fragments of light emery soft tissue that in aggregate measure 1.2 x 0.3 x 0.1 cm. The specimen is totally submitted in one cassette. SJbl 11/27/23 TC:3 CPT: 22457 x3
--- NOTE | 2023-11-27 07:54 | OP.CCLET_ITS ---
11/27/2023 Kimi López [facility] [address] [place] [address] Re : Colonoscopy procedure for Lisbeth Craven Dear Dr. López This procedure was performed on November. My impressions and recommendations are as follows: Impressions : - Rectal prolapse. - One 7 mm polyp in the transverse colon, removed with a cold snare. Resected and retrieved. - Patent [id number] ileo-colonic anastomosis, characterized by erosion and erythema. Biopsied. Recommendations : - Discharge patient to home. - Resume previous diet. - Continue present medications. - Await pathology results. - Repeat colonoscopy in 1 year for surveillance. My findings are described in the full procedure note, which is enclosed. If I can be of further assistance, please feel free to contact me at . Sincerely, Shaun Suarez, 11/27/2023 7:54:02 AM This report has been signed electronically.
--- NOTE | 2023-11-27 07:54 | OP.COLON_ITS ---
Patient Name: Lisbeth Craven Procedure Date: 11/27/2023 7:34 AM Date of : 1960 Age: 63 Procedure: Colonoscopy Indications: High risk colon cancer surveillance: Personal history of colon cancer Providers: Shaun Suarez DO Medicines: Monitored Anesthesia Care Patient Profile: This is a 63 year old female. Refer to note in patient chart for documentation of history and physical. Last Colonoscopy: 1 year ago. Complications: No immediate complications. Procedure: Pre-Anesthesia Assessment: - Prior to the procedure, a History and Physical was performed, and patient medications and allergies were reviewed. The patient is competent. The risks and benefits of the procedure and the sedation options and risks were discussed with the patient. All questions were answered and informed consent was obtained. Patient identification and proposed procedure were verified by the physician. Mental Status Examination: normal. Prophylactic Antibiotics: The patient does not require prophylactic antibiotics. Prior Anticoagulants: The patient has taken no anticoagulant or antiplatelet agents. ASA Grade Assessment: III - A patient with severe systemic disease. After reviewing the risks and benefits, the patient was deemed in satisfactory condition to undergo the procedure. The anesthesia plan was to use monitored anesthesia care (MAC). Immediately prior to administration of medications, the patient was re-assessed for adequacy to receive sedatives. The heart rate, respiratory rate, oxygen saturations, blood pressure, adequacy of pulmonary ventilation, and response to care were monitored throughout the procedure. The physical status of the patient was re-assessed after the procedure. After I obtained informed consent, the scope was passed under direct vision. Throughout the procedure, the patient's blood pressure, pulse, and oxygen saturations were monitored continuously. The Colonoscope was introduced through the anus and advanced to the terminal ileum. The colonoscopy was performed without difficulty. The patient tolerated the procedure well. The quality of the bowel preparation was adequate. The terminal ileum and the rectum were photographed. Scope In: 7:37:57 AM Scope Out: 7:48:53 AM Total Procedure Duration Time 0 hours 10 minutes 56 seconds Findings: The perianal and digital rectal examinations were normal. Mild rectal prolapse was present. A 7 mm polyp was found in the transverse colon. The polyp was sessile. The polyp was removed with a cold snare. Resection and retrieval were complete. Verification of patient identification for the specimen was done. Estimated blood loss was minimal. There was evidence of a prior [id number] ileo-colonic anastomosis at the hepatic flexure. This was patent and was characterized by erosion and erythema. The anastomosis was traversed. Biopsies were taken with a cold forceps for histology. Verification of patient identification for the specimen was done. Estimated blood loss was minimal. Impression: - Rectal prolapse. - One 7 mm polyp in the transverse colon, removed with a cold snare. Resected and retrieved. - Patent [id number] ileo-colonic anastomosis, characterized by erosion and erythema. Biopsied. Recommendation: - Discharge patient to home. - Resume previous diet. - Continue present medications. - Await pathology results. - Repeat colonoscopy in 1 year for surveillance. Procedure Code(s): --- Professional --- 78381, Colonoscopy, flexible; with removal of tumor(s), polyp(s), or other lesion(s) by snare technique 69028, 59, Colonoscopy, flexible; with biopsy, single or multiple CPT copyright 2021 [employer]. All rights reserved. The codes documented in this report are preliminary and upon insurance verification representative review may be revised to meet current compliance requirements. Shaun Suarez DO 11/27/2023 7:54:02 AM This report has been signed electronically. Number of Addenda: 0 Note Initiated On: 11/27/2023 7:34 AM
[2023-11-27 07:55] VITALS: BP 133/55; BP 93/50; PULSE 51; RESP 16; TEMP 36.7; O2SAT 96
[2023-11-27 08:00] VITALS: BP 133/55; BP 90/48; PULSE 52; RESP 16; O2SAT 97
[2023-11-27 08:05] VITALS: BP 133/55; BP 95/51; PULSE 51; RESP 16; O2SAT 97
[2023-11-27 08:10] VITALS: BP 110/58; BP 133/55; PULSE 52; RESP 16; TEMP 36.2; O2SAT 96
[2023-11-27 08:31] VITALS: BP 133/55
== END 2023-11-27 09:01 | disposition home or self-care (01) ==
LOC: EN 06:13 → AC 06:15
PROVIDERS: PCP Internal Medicine; Referring Provider Internal Medicine; Visit Provider Internal Medicine Gastroenterology
PROC: 0DJD8ZZ Inspection of Lower Intestinal Tract, Via Natural or Artificial Opening Endoscopic (ICD-10-PCS; CPT 45378; principal; 2023-11-27 07:25)
DX: Z12.11 Encounter for screening for malignant neoplasm of colon (principal); C18.2 Malignant neoplasm of ascending colon; E11.22 Type 2 diabetes mellitus with diabetic chronic kidney disease; E11.40 Type 2 diabetes mellitus with diabetic neuropathy, unspecified; N18.30 Chronic kidney disease, stage 3 unspecified; K62.3 Rectal prolapse; Z79.82 Long term (current) use of aspirin; E07.9 Disorder of thyroid, unspecified; E88.810 Metabolic syndrome; K63.5 Polyp of colon; M79.7 Fibromyalgia; E78.00 Pure hypercholesterolemia, unspecified; I25.10 Atherosclerotic heart disease of native coronary artery without angina pectoris; Z79.52 Long term (current) use of systemic steroids; Z79.02 Long term (current) use of antithrombotics/antiplatelets; Z95.5 Presence of coronary angioplasty implant and graft; Z87.891 Personal history of nicotine dependence; I12.9 Hypertensive chronic kidney disease with stage 1 through stage 4 chronic kidney disease, or unspecified chronic kidney disease; Z79.84 Long term (current) use of oral hypoglycemic drugs
CPT/HCPCS: 45385; 45380; 82962; 88305; J7120; J2405

== ENCOUNTER 2023-12-05 11:30 | Outpatient (RCR) | payer MEDICAID, SELFPAY ==
[2023-10-24 08:16] VITALS: BMI 28.7
[2023-11-13 00:47] VITALS: BP 128/52; BP 132/48
--- NOTE | 2023-11-24 08:37 | PCM.CR.ITP ---
Nutrition - Initial Assessment Weight Mgt (Other Care) Height: 5 ft 8 in Weight:: 187 lb 8 oz BMI: 28.5 Psychosocial - Initial Assess Target Goals Target Goals Patient Health Questionnaire PHQ-9 Screening 90-Day Re-eval Assessment: 1. Little interest or pleasure in doing things: Several days 2. Feeling down, depressed, or hopeless: Several days 3. Trouble falling or staying asleep, or sleeping too much: More than half the days 4. Feeling tired or having little energy: Nearly every day 5. Poor appetite or overeating: More than half the days 6. Feeling bad about yourself -- or that you are a failure or have let yourself or your family down: More than half the days 7. Trouble concentrating on things, such as reading the newspaper or watching television: Not at all 8. Moving or speaking so slowly that other people could have noticed. Or the opposite - being so fidgety or restless that you have been moving around a lot more than usual: Not at all 9. Thoughts that you would be better off , or of hurting yourself in some way: Not at all How difficult have these problems made it for you to do your work, take care of things at home, or get along with other people?: Somewhat difficult Total Score: 11 Self-Efficacy 6-Item Scale 90-Day Re-eval Assessment: We would like to know how confident you are in doing certain activities. Please select your confidence level for: Fatigue Select Number: 4 Physical Discomfort or Pain Select Number: 4 Emotional Distress Select Number: 4 Other Symptoms or Health Problems Select Number: 6 Different Tasks and Activities Select Number: 5 Medication Select Number: 4 Total Score:: 4 Nutrition Survey Nutrition Survey Instructions Scoring Instructions Exercise - 90-day Assessment Visit Date of Eval: 11/24/23 Session #:: 23 Physician Prescribed Exercise Modalities: Rower, NuStep and Lateral [place] Frequency: 3x/week for 12 weeks [36 sessions] Intensity: 60-80% of age predicted maximum heart rate reserve Duration: 30 - 45 minutes Current METSs:: 4 Target Heart Rate:: 94-118 Current RPE:: 10-11 Maximum Excercise HR:: 69 Resting Blood Pressure: 98/62 Maximum Exercise Blood Pressure: 132/64 EKG Type: SB to SR/junctional w/BBB w/ frequent pacs, rare pvc Outcomes & Goals Goals:: Verbalizes understanding of THR, RPE & goal METS by session 6, Documents in home exercise log/reports 30 min aerobic 5 day/wk by DC, Demonstrates accurate pulse taking by DC and Other additional outcome/goals: see below Intervention & Plan Exercise Program Goals: Instruct on personal THR & RPE, Instruct on MET level & personal MET goal, Show patient to take own pulse /validate performance until accurate, Instruct on home exercise and Other additional plan/int 30-day Reassessments 30 day Reassessments:: Met Physical Activity Home Exercise Physical Activity - Home Exercise: Safe Exercise, Warm-up, Self-monitoring, Cool-Down, Home Exercise > 30 min Daily and Sitting Time <3 hours/daily Outcomes & Goals Outcomes/Goals: Demonstrates correct Warm-up/exercise Cool-Down (S3) if = 2.5 METs, Verbalizes symptoms of exercise intolerance by Session 3 (S3), Demonstrate safe equipment use (S3) & follows exercise prescrition (6) and Other: See below Intervention & Plan Plan/Intervention: Instruct warm-up & cool-down if exercising at > 2 METs, Instruct on symptoms of exercise intolerance & actions to take, Instruct & monitor on saf, Assess intial functional capacity & safety risk and Other See below 30-day Reassessments 30 day Reassessments:: Met Nutrition - 30-Day Assessment Weight Mgt (Other Care) Height: 5 ft 8 in Weight:: 187 lb 8 oz BMI: 28.5 Nutrition - 60-Day Assessment Weight Mgt (Other Care) Height: 5 ft 8 in Weight:: 187 lb 8 oz BMI: 28.5 Core - 90 Day Assessment Visit Date of Eval: 11/24/23 Session #:: 23 Medication Compliance Preventative Medication(s):: Aspirin, DAYAN inhibitor, Clopidogrel/P2Y12 inhibit and Statin/lipid H/O mental health issues: depression, anxiety, or addiction?: Yes Doesn?t believe in the benefits of treatment?: No Believes medications are unnecessary or harmful?: No Has a concern about medication side effects?: No Expresses concern over the cost of medications?: No Outcomes/Goals: Verbalizes medications,desired effect & common side effects @ DC, Pt self-reports following medication regimen, Keeps card in wallet w/medications listed by DC and Other additional outcome/goals: Comments:: isosorbide mono to 60 mg Interventions/plans: Instruct on medication effects & side effects, Review medication list w/patient every two weeks, Instruct importance of taking meds as ordered & assist problem solving and Other additional 30-day Reassessments:: Met Tobacco Use Tobacco Use: Non-smoker Hypertension Hypertension Diagnosis:: Hypertension ICD-10 I10 Resting Blood Pressure:: 98/62 [place] [employer] Hypertension Guidelines Peak Exercise Blood Pressure:: 130/60 Outcomes/Goals: Able to verbalize/achieve optimal blood pressure <130/80, Incorporates diet changes & exercise for blood pressure control by DC and Other additional outcomes/goals Interventions/plan: Instruct on optimal blood pressure, hypertension & medications, Instruct on effects of sodium, alcohol, stress, exercise &hypertension and Other additional plan/interventions 30 day Reassessments:: Met Tobacco Cessation Referral Smoking Cessation Referral:: No Individual Education/Counseling:: No Education Schedule Given:: Yes Psychosocial - 30-Day Assess Target Goals Target Goals Psychosocial - 60-Day Assess Target Goals Target Goals Psychosocial - 90-Day Assess VIsit Date of Eval: 11/24/23 Session #:: 23 History of previous Mental disease:: Yes History of Emotional Disorders: Anxious Target Goals Target Goals Outcomes/Goals: See list Psychosocial Outcomes/Goals:: ID's personal stressors & 2 strategies to manage stress by discharge and Other Additional outcome/goals: Intervention/Plan: See List Interventions/Plan:: Assess stressors,coping strategies & signs of derpression on admission, Instruct/assist pt to develop coping & personal stress Mgt strategies, Refer to Behavioral Health if appropriate, Refer to Physician if appropriate, Instruct patient to recognize signs & symptoms of depression, Instruct patient to recog and Other additional plan/intervention 30-day Reassessments: 30 day Reassessments:: Met Psychosocial - Final Assessmen Target Goals Target Goals Nutrition - 90-Day Assessment Program Goals Nutrition Program Goals Patient has diagnosis of Hyperlipidemia (ICD E78)?: Yes Visit Date of Eval: 11/24/23 Session #:: 23 Cholesterol/Lipids (Other Core Measures) Determine presence & major risk factors that modify LDL goal: Cigarette smoking, Hypertension or hypertensive medication, Low HDL cholesterol <40 mg/dL*, Family history of premature CHD in Male < 55 years: female <65 yearsFa and Age men > 45 years; women >/= 55 years Outcomes/Goals: Pt IDs own risk factors & lifestyle modifications by Session 10, Verbalizes symptoms of angina & response by session 3., Pt independently manages and Other Additional Outcomes/Goals: Intervention/Plan: Advocate for lipid panel cholesterol medication if applicable, Instruct on personal lipid levels & lipid goals/NCEP guidelines, Instruct on cholesterol and Other additional plan/int 30-day Reassessments:: Met Diabetes (Other Core Measures) Diabetes Type: Diagnosis Type II ICD-10 E11 Insulin dependent injection/pump?: No Non-Insulin Dependent?: No Do you monitor your blood sugar at home?: Yes Referral to Diabetic Clinic:: Yes Outcomes/Goals:: Able to state symptoms of, Able to state, Able to state and Other additional Intervention/Plan:: Instruct on, Refer to, Instruct on and Other 30-day Reassessments:: Met Weight Mgt (Other Care) Height: 5 ft 8 in Weight:: 187 lb 8 oz BMI: 28.5 Diagnosis Overweight/Obesity BMI> 30% ICD-10 E66: No Diagnosis High BMI/Morbid Obesity BMI> 35% ICD-10 Z68: No Outcomes/Goals: Pt sets, maintains & shows weight loss goal & trend during rehab and Other additional outcomes/goals Intervention/Plan: Instruct on ideal BMI & set weight loss goal w/patient, Assist pt to ID & incorporate diet changes for weight loss by S9, Refer to Structured Weight Loss program as appropriate, Encourage goal of using 250-300dcal per session for weight loss and Other additional plan/interventions 30 day Reassessments:: Met Healthy Eating Habits Will attend diet classes:: Yes Outcomes/Goals:: Consume diet rich in vegs,fruits,whole grain/high fiber,fish,lean meat, Limit sat/trans fats,cholesterol & added salts & sugars and Other additional outcome/goals: Intervention/Plan:: Assess current eating habits and Other Additional plan/interventions 30-day Reassessments:: Met Education Gave educational materials for:: Signs & symptoms of hypoglycemia, Signs & symptoms of hyperglycemia, Relate diabetes to coronary artery disease and Healthy eating Nutrition - Final Assessment Weight Mgt (Other Care) Height: 5 ft 8 in Weight:: 187 lb 8 oz BMI: 28.5
[2023-11-24 08:48] VITALS: BP 98/62; BMI 28.5
== END 2023-12-11 23:59 ==
LOC: CR 11:30
PROVIDERS: PCP Internal Medicine
DX: I25.10 Atherosclerotic heart disease of native coronary artery without angina pectoris (principal); I20.9 Angina pectoris, unspecified
CPT/HCPCS: 93798

== ENCOUNTER 2023-12-12 12:12 | Day surgery (SDC) | payer MEDICAID, SELFPAY ==
[2023-11-24 08:48] VITALS: BMI 28.5
--- OUTSIDE RECORDS SUMMARY | 2023-12-12 12:42 | XMS RPT_ITS | CCD ---
Author Name Unknown Address [address] [place] [address] Organization [facility] Care Team Providers Care Accuracy Expert Name Role Phone Unavailable Primary Care Provider UnavailSusan Burnette MD Unavailable Cristel Valenzuela MD Primary Care Provider [phone] Unavailable Primary Care Provider UnavailCristel Wong Primary Care Provider [phone] Cristel Valenzuela Primary Care Provider Cristel Valenzuela Unavailable Vero Wu MD Unavailable Susan Alvares MD Unavailable PROVIDER, UNKNOWN Admitting Unavailable VERO WU Referring Unavailable PROVIDER, UNKNOWN Attending Unavailable PROVIDER, UNKNOWN Attending Unavailable PROVIDER, UNKNOWN Admitting Unavailable VERO WU Referring Unavailable PROVIDER, UNKNOWN Attending Unavailable PROVIDER, UNKNOWN Admitting Unavailable VERO WU Referring Unavailable PROVIDER, UNKNOWN Admitting Unavailable PROVIDER, UNKNOWN Attending Unavailable PROVIDER, UNKNOWN Attending Unavailable PROVIDER, UNKNOWN Admitting Unavailable PROVIDER, UNKNOWN Attending Unavailable PROVIDER, UNKNOWN Admitting Unavailable KATHLEEN SANTOS Attending Unavailable CRISTEL VALENZUELA Primary Care Unavailable BERTHA PATRICIO Attending Unavailable BIANCACRISTEL Primary Care Unavailable BRETHA PATRICIO Attending Unavailable CRISTEL VALENZUELA Primary Care Unavailable KATHLEEN SANTOS Admitting Unavailable KATHLEEN SANTOS Attending Unavailable KATHLEEN SANTOS Referring Unavailable BIANCACRISTEL Primary Care Unavailable KATHLEEN SANTOS Attending Unavailable BIANCA, CRISTEL Primary Care Unavailable NIKITA BERTHA Attending Unavailable BIANCA, CRISTEL Primary Care Unavailable CRISTEL VALENZUELA Primary Care Unavailable ELIECER VASQUEZ Referring Unavailable CRISTEL VALENZUELA Primary Care Unavailable GHANY, AHMED Referring Unavailable GUILLE ALVARESMED Attending Unavailable SUSAN ALVARES Attending Unavailable DANIELA FLOOD Referring Unavailable CRISTEL VALENZUELA Primary Care Unavailable HANDY BATES Referring Unavailable HNADY BATES Attending Unavailable CRISTEL VALENZUELA Primary Care Unavailable HANDY BATES Referring Unavailable CRISTEL VALENZUELA Primary Care Unavailable ELIECER VASQUEZ Referring Unavailable HANDY BATES Attending Unavailable CRISTEL VALENZUELA Primary Care Unavailable ELIECER VASQUEZ Referring Unavailable CRISTEL VALENZUELA Primary Care Unavailable ELIECER VASQUEZ Referring Unavailable CRISTEL VALENZUELA Primary Care Unavailable SUSAN ALVARES Referring Unavailable ELIECER VASQUEZ Attending Unavailable Allergies Allergy Classification Reported Allergen(s) Allergy Type Date of Onset Reaction(s) Facility (20 sources) Acetaminophen / oxyCODONE; Translations: [OXYCODONE-ACETAMINOP HEN] Drug Allergy Itching [facility] (9 sources) Adhesive agent; Translations: [ADHESIVE] Drug Allergy Rash [facility] (10 sources) hydroCHLOROthiazide; Translations: [HYDROCHLOROTHIAZIDE] Drug Allergy Unknown [facility] (20 sources) HYDROcodone; Translations: [HYDROCODONE] Drug Allergy Itching [facility] (9 sources) Iodine; Translations: [IODINE] Drug Allergy Rash, Shortness of Breath [facility] (20 sources) Iron; Translations: [IRON] Drug Allergy Diarrhea [facility] (20 sources) levoFLOXacin; Translations: [LEVOFLOXACIN] Drug Allergy Shortness of Breath, Anaphylactic Shock, Difficulty Breathing [facility] (10 sources) liraglutide; Translations: [LIRAGLUTIDE] Drug Allergy GI Upset, Vomiting [facility] (20 sources) Sulfonamides (Antibiotic); Translations: [SULFA (SULFONAMIDE ANTIBIOTICS)] Drug Allergy Rash [facility] (9 sources) Methylprednisone; Translations: [METHYLPREDNISONE] Drug Allergy Mental Status Change [facility] (20 sources) hydroCHLOROthiazide Drug Allergy Other [facility] (20 sources) liraglutide Drug Allergy 08-02-2 022 Vomiting [facility] (20 sources) methylPREDNISolone; Translations: [METHYLPREDNISOLONE] Drug Allergy Anaphylactic Shock [facility] (20 sources) Iodides; Translations: [IODIDES] Drug Intolerance Anaphylactic Shock, Rash, Difficulty Breathing [facility] (1 source) Other Propensity to adverse reactions [facility] (13 sources) Acetaminophen / oxyCODONE; Translations: [PERCOCET] Drug Allergy Other [facility] (13 sources) Bandage Tape; Translations: [BANDAGE TAPE] Propensity to adverse reactions Itching, Rash [facility] (13 sources) Iodinated Contrast Media; Translations: [IODINATED CONTRAST MEDIA] Propensity to adverse reactions to drug Anaphylactic Shock [facility] (1 source) Sulfonamides (Antibiotic); Translations: [SULFA ANTIBIOTICS] Propensity to adverse reactions to drug (disorder) [facility] Repository Medications Current Medications Medication [...] Coronary arteriosclerosis; Translations: [Atherosclerotic heart disease of [place] coronary artery without angina pectoris] Onset: 3 [...] 3 06-09-2023 Chronic Other aftercare (1 source) [facility] systemic steroid user; 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] 09-05-2023 Episodic [...] lity 09-17-2023 13:21-0500 Body height 172.7 cm Kathleen Santos MD Work Phone: [employer] 09-17-2023 13:21-0500 Body mass index (BMI) [Ratio] 28.34 kg/m2 Kathleen Santos MD Work Phone: [employer] 09-17-2023 13:21-0500 Body weight 84.55 kg Kathleen Santos MD Work Phone: [employer] 09-17-2023 13:21-0500 Diastolic blood pressure 60 mm[Hg] Kathleen Santos MD Work Phone: [employer] [facility] 09-17-2023 13:21-0500 Heart rate 65 /min Kathleen Santos MD Work Phone: [facility] 09-17-2023 13:21-0500 Respiratory rate 16 /min Kathleen Santos MD Work Phone: [facility] 09-17-2023 13:21-0500 SaO2% (BldA) [Mass fraction] 97 % Kathleen Santos MD Work Phone: [facility] 09-17-2023 13:21-0500 Systolic blood pressure 120 mm[Hg] Kathleen Santos MD Work Phone: [facility] 09-05-2023 10:18-0500 Body temperature 97.3 [degF] [facility] 09-05-2023 10:18-0500 Body weight 85.28 kg [facility] 09-05-2023 10:18-0500 Diastolic blood pressure 59 mm[Hg] [facility] 09-05-2023 10:18-0500 Heart rate 55 /min Vero Wu MD [facility] 09-05-2023 10:18-0500 Respiratory rate 16 /min Vero Wu MD [facility] 09-05-2023 10:18-0500 Systolic blood pressure 136 mm[Hg] [facility]ero [facility] MD [facility] 07-16-2023 13:22-0400 Body height 172.7 cm Bertha Nikita PA-C Work Phone: [employer] 07-16-2023 13:22-0400 Body mass index (BMI) [Ratio] 28.19 kg/m2 Bertha Nikita PA-C Work Phone: [employer] [facility] 07-16-2023 13:220400 Body weight 84.1 kg Bertha Nikita PA-C Work Phone: [facility] 07-16-2023 13:22-0400 Diastolic blood pressure 60 mm[Hg] Bertha Nikita PA-C Work Phone: [facility] 07-16-2023 13:22-0400 Heart rate 51 /min Bertha Nikita PA-C Work Phone: [facility] 07-16-2023 13:22-0400 Respiratory rate 16 /min Bertha Nikita PA-C Work Phone: [facility] 07-16-2023 13:22-0400 SaO2% (BldA) [Mass fraction] 99 % Bertha Nikita PA-C Work Phone: [facility] 07-16-2023 13:22-0400 Systolic blood pressure 110 mm[Hg] Bertha Nikita PA-C Work Phone: [facility] 06-30-2023 13:34-0400 Body temperature 97.39 [degF] Handy Bates MD Work Phone: [facility] 06-30-2023 13:34-0400 Body weight 83.92 kg Handy Bates MD Work Phone: [facility] 06-30-2023 13:34-0400 Diastolic blood pressure 64 mm[Hg] Handy Bates MD Work Phone: [facility] 06-30-2023 13:34-0400 Heart rate 54 /min Handy Bates MD Work Phone: [facility] 06-30-2023 13:34-0400 SaO2% (BldA) [Mass fraction] 97 % Handy Bates MD Work Phone: [facility] 06-30-2023 13:34-0400 Systolic blood pressure 125 mm[Hg] Handy Bates MD Work Phone: [facility] 06-25-2023 09:29-0400 Body height 172.7 cm Bertha Nikita PA-C Work Phone: [facility] 06-25-2023 09:29-0400 Body mass index (BMI) [Ratio] 28.01 kg/m2 Bertha Nikita PA-C Work Phone: [employer] [facility] 06-25-2023 09:29-0400 Body weight 83.55 kg Bertha Nikita PA-C Work Phone: [facility] 06-25-2023 09:29-0400 Diastolic blood pressure 70 mm[Hg] Bertha Nikita PA-C Work Phone: [facility] 06-25-2023 09:29-0400 Heart rate 56 /min Bertha Nikita PA-C Work Phone: [facility] 06-25-2023 09:29-0400 Respiratory rate 16 /min Bertha Nikita PA-C Work Phone: [facility] 06-25-2023 09:29-0400 SaO2% (BldA) [Mass fraction] 96 % Bertha Nikita PA-C Work Phone: [facility] 06-25-2023 09:29-0400 Systolic blood pressure 120 mm[Hg] Bertha Nikita PA-C Work Phone: [facility] 06-09-2023 12:58-0400 Body temperature 97.59 [degF] Vero Wu MD [facility] 06-09-2023 12:58-0400 Diastolic blood pressure 57 mm[Hg] Vero Wu MD Work Phone: [employer] 06-09-2023 12:58-0400 Heart rate 56 /min Vero Wu MD Work Phone: [employer] 06-09-2023 12:58-0400 Respiratory rate 20 /min Vero Wu MD Work Phone: [employer] 06-09-2023 12:58-0400 Systolic blood pressure 114 mm[Hg] [facility] 06-06-2023 10:07-0400 Body temperature 97.81 [degF] Kathleen Santos MD Work Phone: [facility] 06-06-2023 10:07-0400 Diastolic blood pressure 73 mm[Hg] Kathleen Santos MD Work Phone: [facility] 06-06-2023 10:07-0400 Heart rate 76 /min Kathleen Santos MD Work Phone: [facility] 06-06-2023 10:07-0400 Respiratory rate 18 /min Kathleen Santos MD Work Phone: [facility] 06-06-2023 10:07-0400 SaO2% (BldA) [Mass fraction] 95 % Kathleen Santos MD Work Phone: [facility] 06-06-2023 10:07-0400 Systolic blood pressure 156 mm[Hg] Kathleen Santos MD Work Phone: [facility] 06-05-2023 11:46-0400 Body height 172.7 cm Kathleen Santos MD Work Phone: [facility] 06-05-2023 11:46-0400 Body mass index (BMI) [Ratio] 27.76 kg/m2 Kathleen Santos MD Work Phone: [facility] 06-05-2023 11:46-0400 Body weight 82.83 kg Kathleen Santos MD Work Phone: [facility] 06-05-2023 11:46-0400 Diastolic blood pressure 68 mm[Hg] Kathleen Santos MD Work Phone: [facility] 06-05-2023 11:46-0400 Heart rate 54 /min Kathleen aSntos MD Work Phone: [facility] 06-05-2023 11:46-0400 SaO2% (BldA) [Mass fraction] 99 % Kathleen Santos MD Work Phone: [facility] 06-05-2023 11:46-0400 Systolic blood pressure 128 mm[Hg] Kathleen Santos MD Work Phone: [facility] 04-04-2023 12:52-0400 Body temperature 97.81 [degF] Eliecer Vasquez MD Work Phone: [facility] 04-04-2023 12:52-0400 Body weight 83.23 kg Eliecer Vasquez MD Work Phone: [facility] 04-04-2023 12:52-0400 Diastolic blood pressure 70 mm[Hg] Eliecer Vasquez MD Work Phone: [facility] 04-04-2023 12:52-0400 Heart rate 64 /min Eliecer Vasquez MD Work Phone: [facility] 04-04-2023 12:52-0400 SaO2% (BldA) [Mass fraction] 95 % Eliecer Vasquez MD Work Phone: [facility] 04-04-2023 12:52-0400 Systolic blood pressure 140 mm[Hg] Eliecer Vasquez MD Work Phone: [facility] 02-24-2023 10:41-0400 Body height 172.7 cm Bertha Nikita PA-C Work Phone: [facility] 02-24-2023 10:41-0400 Body mass index (BMI) [Ratio] 27.67 kg/m2 Bertha Nikita PA-C Work Phone: [facility] 02-24-2023 10:41-0400 Body weight 82.56 kg Bertha Nikita PA-C Work Phone: [facility] 02-24-2023 10:41-0400 Diastolic blood pressure 60 mm[Hg] Bertha Nikita PA-C Work Phone: [facility] 02-24-2023 10:41-0400 Heart rate 56 /min Bertha Nikita PA-C Work Phone: [facility] 02-24-2023 10:41-0400 Respiratory rate 16 /min Bertha Nikita PA-C Work Phone: [facility] 02-24-2023 10:41-0400 SaO2% (BldA) [Mass fraction] 99 % Bertha Nikita PA-C Work Phone: [facility] 02-24-2023 10:41-0400 Systolic blood pressure 120 mm[Hg] Bertha Patricio PA-C Work Phone: [facility] 01-01-2023 14:32-0400 Body temperature 97.59 [degF] Susan Alvares MD Work Phone: [facility] 01-01-2023 14:32-0400 Body weight 83.69 kg Susan Alvares MD Work Phone: [facility] 01-01-2023 14:32-0400 Diastolic blood pressure 66 mm[Hg] Susan Alvares MD Work Phone: [facility] 01-01-2023 14:32-0400 Heart rate 63 /min Susan Alvares MD Work Phone: [facility] 01-01-2023 14:32-0400 Systolic blood pressure 140 mm[Hg] Susan Alvares MD Work Phone: [facility] 12-18-2022 12:58-0500 Body height 172.7 cm Susan Alvares MD Work Phone: [facility] 12-18-2022 12:58-0500 Body temperature 97.3 [degF] Susan Alvares MD Work Phone: [facility] 12-18-2022 12:58-0500 Body weight 81.42 kg Susan Alvares MD Work Phone: [facility] 12-18-2022 12:58-0500 Diastolic blood pressure 62 mm[Hg] Susan Alvares MD Work Phone: [facility] 12-18-2022 12:58-0500 Heart rate 84 /min Susan Alvares MD Work Phone: [facility] 12-18-2022 12:58-0500 Systolic blood pressure 126 mm[Hg] Susan Alvares MD Work Phone: [facility] Encounters Encounter Date Encounter Type Care Provider Facility Start: 12-08-2023 Telephone encounter Kathleen hernandez MD Work Phone: [facility] Start: 11-16-2023 Letter encounter Vero jimenez MD Work Phone: [facility] Start: 10-29-2023 End: 10-29-2023 ambulatory CRISTEL SANCHEZCHNER Facility:[facility] Start: 10-20-2023 End: 10-21-2023 ambulatory CRISTEL Rosado BINACA Facility:[facility] Start: 09-17-2023 End: 09-17-2023 ambulatory KATHLEEN SANTOS [facility] Start: 09-17-2023 End: 09-17-2023 Office outpatient visit 25 minutes Kathleen Santos MD Work Phone: [facility] Procedures Date Procedure Procedure Detail Performing Clinician Start: 09-15-2023 Mammography Kathleen toney MD Work Phone: Start: 08-20-2023 Dxa bone density lucinda dy 1/> sites axial skel Vero Wu MD Work Phone: Start: 08-13-2023 Lipid 1996 panel - S delmi or Plasma Talisha Cardozo [employer] Work Phone: Start: 07-16-2023 Ecg routine ecg w/le ast 12 lds w/i&r Kathleen Santos MD Work Phone: Start: 06-25-2023 Ecg routine ecg w/le ast 12 lds w/i&r Kathleen Santos MD Work Phone: Start: 06-09-2023 C-reactive protein Jennifer Wu MD Work Phone: Start: 06-09-2023 Sedimentation rate r bc non-automated Vero Wu MD Work Phone: Start: 06-09-2023 End: 06-09-2023 Radex foot complete minimum 3 views Vero Wu MD Work Phone: Start: 06-06-2023 Cardiac catheterizat ion study Tyrel Miles MD Work Phone: Start: 06-06-2023 Lipid panel Talisha norman [employer] Work Phone: Start: 06-06-2023 Lipid 1996 panel - S delmi or Plasma Kathleen Santos MD Work Phone: Start: 06-06-2023 Ecg routine ecg w/le ast 12 lds trcg only w/o i&r Talisha Cardozo [employer] Work Phone: Start: 06-05-2023 Assay of troponin quantitative Talisha Cardozo [employer] Work Phone: Start: 06-05-2023 Assay of troponin quantitative Talisha Cardozo [employer] Work Phone: Start: 06-05-2023 Comprehensive metabo lic panel Talisha Laguna Juliane [employer] Work Phone: Start: 06-05-2023 Ecg routine ecg w/le ast 12 lds w/i&r Kathleen Santos MD Work Phone: Start: 04-24-2023 Ct abdomen & pelvis w/o contrast material Eliecer Vasquez MD Work Phone: Start: 04-24-2023 Ct thorax w/o contra st material Eliecer Vasquez MD Work Phone: Start: 02-24-2023 Ecg routine ecg w/le ast 12 lds w/i&r Kathleen Santos MD Work Phone: Start: 12-06-2022 Colonoscopy Bertha reinoso PA-C Work Phone: Start: 09-11-2022 Mammography Bertha Smith ros PA-Natalee Work Phone: Start: 03-02-2022 Cardiac catheterization Start: 03-02-2022 Ecg routine ecg w/le ast 12 lds i&r only Plan of Treatment Date Care Activity Detail Author Start: 12-06-2032 Screening for malignant neoplasm of colon [facility] Start: 06-06-2028 Cholesterol [Mass/volume] in Serum or [facility] Start: 06-06-2028 Lipid 1996 panel - Serum or Plasma Lipid Screening [facility] Start: 06-23-2026 Diabetes Screening Diabetes Screening [facility] Start: 03-31-2026 DIABETES SCREEN DIABETES SCREEN [facility] Start: 03-05-2025 DIABETES SCREEN DIABETES SCREEN [facility] Start: 09-22-2024 End: 09-22-2024 Patient encounter procedure [facility] Start: 09-15-2024 Screening for malignant neoplasm of breast Mammogram [facility] Start: 08-27-2024 Creatinine measurement Basic Metabolic Panel [facility] Start: 08-13-2024 Creatinine measurement Basic Metabolic Panel [facility] Start: 08-13-2024 Lipid panel [facility] Start: 06-06-2024 Lipid panel [facility] Start: 06-05-2024 Creatinine measurement Basic Metabolic Panel [facility] Start: 06-05-2024 Hemoglobin A1c measurement Diabetes: Hemoglobin A1C [facility] Start: 01-13-2024 Hemoglobin A1c measurement Hemoglobin A1C [facility] Start: 01-05-2024 End: 01-05-2024 Patient encounter procedure 01/05/2024 10:40 AM EDT Office Visit [facility] Rheumatology [address] [place] [address] Vero Wu MD [address] [place], [place] [id number] [facility] Start: 12-06-2023 Hemoglobin A1c measurement Hemoglobin A1C [facility] Start: 10-22-2023 End: 12-22-2023 Carcinoembryonic Ag [Mass/volume] in Serum or Plasma [facility] BLD Lab Routine Malignant neoplasm of ascending colon (HCC) Expected: 10/22/2023 (Approximate), Expires: 12/22/2023 [facility] Work Phone: Immunizations Immunization Date Immunization Notes Care Provider Fa cility 07-14-2023 Hemoglobin A1C [facility] 06-05-2023 Hemoglobin A1C Vero jimenez MD Work Phone: [facility] Payers Date Payer Category Payer Medicaid [id number] 2022 Medicaid 1916 1960 Unknown [id number] [id number]. [id number] 1960 Unknown [id number] [id number]. [id number] 1960 Unknown [id number] 2.16. [id number] 1960 Unknown [id number] 2.16. [id number] 1960 Unknown [id number] 2.16. [id number] 1960 Unknown [id number] 2.. [id number] Social History Date Type Detail Facility Tobacco smoking stat [facility] Tobacco smoking consumption unknown [facility] Start: 1960 Sex Assigned At Not on file [facility] Start: 08-15-2022 End: 12-18-2022 Tobacco smoking status AKIS Ex-smoker [facility] End: 10-13-1992 History of tobacco use Current smoker [facility] End: 10-13-1992 History of tobacco use Cigarette Smoker [facility] Start: 12-18-2022 End: 06-05-2023 Cigarettes smoked current (pack per day) - Reported 1 [facility] Start: 12-18-2022 End: 09-05-2023 Tobacco use and exposure Smokeless tobacco non-user [facility] Start: 02-24-2023 End: 09-17-2023 Alcohol intake Lifetime non-drinker (finding) [facility] Start: 1960 [facility] Assigned At [facility] Start: 06-05-2023 End: 09-17-2023 Humiliation, Afraid, Rape, and Kick questionnaire [HARK] [facility] Within the last year , have you been afraid of your partner or ex-partner? No [facility] How often to you hav e a drink containing alcohol? Never [facility] How many standard dr inks containing alcohol do you have on a typical day? Patient does not drink [facility] Start: 05-26-2023 End: 06-25-2023 Exposure to SARS-CoV-2 (event) Not sure [facility] Start: 06-23-2023 Gender identity Identifies as female gender (finding) [facility] Start: 02-24-2023 Sexual orientation Heterosexual (fin edu) [facility] Start: 09-05-2023 [facility] Clinical Notes 03-05-2022 to 12-10-2023 Telephone Encounter - Belle Del Cid - 12/10/2023 2:50 PM ESTTelephone Encounter - Belle Del Cid - 12/10/2023 2:50 PM ESTTelephone Encounter - Rik Harris RN - 12/08/2023 10:32 AM EST Note Date & Type Note Facility 12-10-2023 Telephone encounter Note Faxed clearance to [phone]. Original to scanning [facility] 12-10-2023 Miscellaneous Notes Faxed clearance to [phone]. Original to scanning Received clearance from [facility]. Patient is scheduled for colonoscopy/EGD with MAC sedation 12/17/23. documented in this encounter [facility] 12-08-2023 Telephone encounter Note Received clearance from [facility]. Patient is scheduled for colonoscopy/EGD with MAC sedation 12/17/23. [facility] 10-29-2023 Note HNO ID: [id number] Author: HANDY BATES MD Service: ? Author [...] She is on ac due to prior DC. 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 [...] (FLONASE) 50 mcg/actuation nasal spray Use 1 [place] in each nostril once daily as needed. [...] All other rev (more content not included)... [facility] 09-17-2023 History of Presen t illness Narrative Images from the original note were not included. [facility]OLOG[facility] [address] [facility] [address] Dept: [phone] Dept Loc: [phone] DATE of SERVICE:09/17/23 TIME of SERVICE: 1:30 [...] Colon cancer (HCC) Coronary artery disease Hypertension DC (myocardial infarction) (HCC) Past Surgical History Past Surgical History: Procedure Laterality Date CARDIAC CATHETERIZATION N/A 06/06/2023 Performed by Tyrel Miles MD at [facility] Cardiac Cath/EP Lab Family History Family History [...] mouth in the morning., Disp: , Rfl: [id number] ine 50-325-40 MG tablet, Take 1 tablet by [...] we can do. documented in this encounter [facility] 09-05-2023 Instructions Vero Wu MD - 09/05/2023 11:01 AM EST [...] future fractures 50% documented in this encounter [facility] 09-05-2023 History of Presen t illness Narrative Rheumatology Note CC: RA and osteoporosis Recall: Lisbeth Craven is a 63 year old female w RA; CKD, osteopenia w high FRAX Was seeing Dr Fabien Wyman in [facility]; dx RA 2014; Pred 5mg and hcq. [...] small fiber (skin biopsy proven); cad s/p DC (3 stents); DMII; gerd; osteopenia; s/p back [...] Right foot: Normal. Left foot: Normal. Comments: Heberden's and Mt's nodes Skin: General: Skin is [...] 6 months at next visit if stable Vero Wu MD documented in this encounter [facility] [facility] documented in this encounter [id number] Telephone encounter Note* Telephone Encounter - Rik Harris RN - 08/26/2023 3:40 PM EST PC to patient. I talked with . He would like her to focus on cardiac rehab at this time. If not making progress or having issues will consider external counterpulsation therapy. She starts cardiac rehab on Friday, she verbalized understanding. [facility] [id number] Miscellaneous Notes* Telephone Encounter - Rik Harris [...] - 08/15/2023 10:41 AM EDT [facility] at [facility] requested you call him re: getting this patient set up for rehab. # [phone] * Telephone Encounter - Alize Rosario MA - 08/14/2023 4:13 PM EDT Note faxed. * Telephone Encounter - Rik Harris RN - 08/14/2023 2:07 PM EDT Received faxed request from [facility] that they need supporting documentation and that the office note muist address stable angina in supporting documentation. I r/w RBC will have last OVwith Bertha CARBAJAL faxed. * Telephone Encounter - Alize Rosario MA - 08/13/2023 11:55 AM EDT The patient called stating [facility] has not received a referral from our office. I called the rehab # [phone] and they confirmed they have not received the referral. I faxed the referral to the fax number their office gave me and informed the patient. , received confirmation fax received. * Telephone Encounter - Belle Del Cid - 07/15/2023 10:58 AM EDT Faxed new order * Addendum Note - Kathleen Santos MD - 07/15/2023 10:44 AM EDTAddended by: KATHLEEN SANTOS on: 07/15/2023 10:44 AM Modules accepted: Orders * Telephone Encounter - Kathleen Santos MD - 07/15/2023 10:43 AM EDT Re-did referral * Addendum Note - Rik Harris RN - 07/14/2023 4:01 PM EDTAddended by: RIK HARRIS on: 07/14/2023 04:01 PM Modules accepted: Orders * Telephone Encounter - Belle Del Cid - 07/11/2023 9:57 AM EDT Faxed to [facility] * Telephone Encounter - Kathleen Santos MD - 07/11/2023 9:43 AM EDT I did this, thank you * Addendum Note - Kathleen Santos MD - 07/11/2023 9:43 AM EDTAddended by: KATHLEEN SANTOS. on: 07/11/2023 09:43 AM Modules accepted: Orders * Telephone Encounter - Rik Harris RN - 06/25/2023 11:09 AM EDT Images from the original note were not included. Belle Del Cid You 1 minute ago (11:08 AM) [facility], needs cardiac rehab order signed by Physician not ERLIN, then will fax ov note, testing to [phone] * Telephone Encounter - Rik Harris RN - 06/25/2023 10:49 AM EDT Patient in office today to see Bertha. Requesting update on cardiac rehab order. Will have office secretary follow up on this. * Telephone Encounter - SON Alvarado CNP - 06/06/2023 4:50 PM EDT Please contact [facility] and ask what order is needed for cardiac rehab. Unable to locate an external cardiac rehab order in our system. documented in this [facility]11-06-2023 Telephone encounter Note* Telephone Encounter - [...] give her a call. She verbalized understanding. [facility] [id number] Miscellaneous Notes* Telephone Encounter - Rik Harris [...] - 08/15/2023 10:41 AM EDT [facility] at [facility] requested you call him re: getting this patient set up for rehab. # [phone] * Telephone Encounter - Alize Rosario MA - 08/14/2023 4:13 PM EDT Note faxed. * Telephone Encounter - Rik Harris RN - 08/14/2023 2:07 PM EDT Received faxed request from [facility] that they need supporting documentation and that the office note muist address stable angina in supporting documentation. I r/w RBC will have last OVwith Bertha CARBAJAL faxed. * Telephone Encounter - Alize Rosario MA - 08/13/2023 11:55 AM EDT The patient called stating [facility] has not received a referral from our office. I called the rehab # [phone] and they confirmed they have not received the referral. I faxed the referral to the fax number their office gave me and informed the patient. , received confirmation fax received. * Telephone Encounter - Belle Del Cid - 07/15/2023 10:58 AM EDT Faxed new order * Addendum Note - Kathleen Santos MD - 07/15/2023 10:44 AM EDTAddended by: KATHLEEN SANTOS. on: 07/15/2023 10:44 AM Modules accepted: Orders * Telephone Encounter - Kathleen Santos MD - 07/15/2023 10:43 AM EDT Re-did referral * Addendum Note - Rik Harris RN - 07/14/2023 4:01 PM EDTAddended by: RIK HARRIS on: 07/14/2023 04:01 PM Modules accepted: Orders * Telephone Encounter - Belle Del Cid - 07/11/2023 9:57 AM EDT Faxed to [facility] * Telephone Encounter - Kathleen Santos MD - 07/11/2023 9:43 AM EDT I did this, thank you * Addendum Note - Kathleen Santos MD - 07/11/2023 9:43 AM EDTAddended by: KATHLEEN SANTOS on: 07/11/2023 09:43 AM Modules accepted: Orders * Telephone Encounter - Rik Harris RN - 06/25/2023 11:09 AM EDT Images from the original note were not included. Belle Del Cid You 1 minute ago (11:08 AM) [facility], needs cardiac rehab order signed by Physician not ERLIN, then will fax ov note, testing to [phone] * Telephone Encounter - Rik Harris RN - 06/25/2023 10:49 AM EDT Patient in office today to see Bertha. Requesting update on cardiac rehab order. Will have office secretary follow up on this. * Telephone Encounter - SON Alvarado CNP - 06/06/2023 4:50 PM EDT Please contact [facility] and ask what order is needed for cardiac rehab. Unable to locate an external cardiac rehab order in our system. documented in this [facility]11-06-2023 History of Present illness Narrative* Bertha Patricio PA-C - 08/18/2023 9:25 AM EST Order placed for cardiac rehab for angina pectoris documented in this [facility] [id number] Telephone encounter Note* Telephone Encounter - Rik [...] call her once faxed. She verbalized understanding. [facility] [id number] Miscellaneous Notes* Telephone Encounter - Rik Harris [...] - 08/15/2023 10:41 AM EDT [facility] at [facility] requested you call him re: getting this patient set up for rehab. # [phone] * Telephone Encounter - Alize Rosario MA - 08/14/2023 4:13 PM EDT Note faxed. * Telephone Encounter - Rik Harris RN - 08/14/2023 2:07 PM EDT Received faxed request from [facility] that they need supporting documentation and that the office note muist address stable angina in supporting documentation. I r/w RBC will have last OVwith Bertha CARBAJAL faxed. * Telephone Encounter - Alize Rosario MA - 08/13/2023 11:55 AM EDT The patient called stating [facility] has not received a referral from our office. I called the rehab # [phone] and they confirmed they have not received the referral. I faxed the referral to the fax number their office gave me and informed the patient. , received confirmation fax received. * Telephone Encounter - Belle Del Cid - 07/15/2023 10:58 AM EDT Faxed new order * Addendum Note - Kathleen Santos MD - 07/15/2023 10:44 AM EDTAddended by: KATHLEEN SANTOS on: 07/15/2023 10:44 AM Modules accepted: Orders * Telephone Encounter - Kathleen Santos MD - 07/15/2023 10:43 AM EDT Re-did referral * Addendum Note - Rik Harris RN - 07/14/2023 4:01 PM EDTAddended by: RIK HARRIS on: 07/14/2023 04:01 PM Modules accepted: Orders * Telephone Encounter - Belle Del Cid - 07/11/2023 9:57 AM EDT Faxed to [facility] * Telephone Encounter - Kathleen Santos MD - 07/11/2023 9:43 AM EDT I did this, thank you * Addendum Note - Kathleen Santos MD - 07/11/2023 9:43 AM EDTAddended by: KATHLEEN SANTOS on: 07/11/2023 09:43 AM Modules accepted: Orders * Telephone Encounter - Rik Harris RN - 06/25/2023 11:09 AM EDT Images from the original note were not included. Belle Del Cid You 1 minute ago (11:08 AM) [facility], needs cardiac rehab order signed by Physician not ERLIN, then will fax ov note, testing to [phone] * Telephone Encounter - Rik Harris RN - 06/25/2023 10:49 AM EDT Patient in office today to see Bertha. Requesting update on cardiac rehab order. Will have office secretary follow up on this. * Telephone Encounter - SON Alvarado CNP - 06/06/2023 4:50 PM EDT Please contact [facility] and ask what order is needed for cardiac rehab. Unable to locate an external cardiac rehab order in our system. documented in this [facility]SMer[facility] Anne HospitalBcxpmq64-75-4242 Telephone encounter Note* Telephone Encounter - Alize Rosario MA - 08/15/2023 10:41 AM EDT [facility] at [facility] requested you call him re: getting this patient set up for rehab. # [phone] [facility] HospitalBqrlso17-50-0461 Telephone encounter Note* Telephone Encounter - Alize Rosario MA - 08/14/2023 4:13 PM EDT Note faxed. [facility] [id number] Miscellaneous Notes* Telephone Encounter - Alize Rosario MA - 08/14/2023 4:13 PM EDT Note faxed. * Telephone Encounter - Rik Harris RN - 08/14/2023 2:07 PM EDT Received faxed request from [facility] that they need supporting documentation and that the office note muist address stable angina in supporting documentation. I r/w RBC will have last OVwith Bertha CARBAJAL faxed. * Telephone Encounter - Alize Rosario MA - 08/13/2023 11:55 AM EDT The patient called stating [facility] has not received a referral from our office. I called the rehab # [phone] and they confirmed they have not received the referral. I faxed the referral to the fax number their office gave me and informed the patient. , received confirmation fax received. * Telephone Encounter - Belle Del Cid - 07/15/2023 10:58 AM EDT Faxed new order * Addendum Note - Kathleen Santos MD - 07/15/2023 10:44 AM EDTAddended by: KATHLEEN SANTOS. on: 07/15/2023 10:44 AM Modules accepted: Orders * Telephone Encounter - Kathleen Santos MD - 07/15/2023 10:43 AM EDT Re-did referral * Addendum Note - Rik Harris RN - 07/14/2023 4:01 PM EDTAddended by: RIK HARRIS on: 07/14/2023 04:01 PM Modules accepted: Orders * Telephone Encounter - Belle Del Cid - 07/11/2023 9:57 AM EDT Faxed to [facility] * Telephone Encounter - Kathleen Santos MD - 07/11/2023 9:43 AM EDT I did this, thank you * Addendum Note - Kathleen Santos MD - 07/11/2023 9:43 AM EDTAddended by: KATHLEEN SANTOS on: 07/11/2023 09:43 AM Modules accepted: Orders * Telephone Encounter - Rik Harris RN - 06/25/2023 11:09 AM EDT Images from the original note were not included. Belle Del Cid You 1 minute ago (11:08 AM) [facility], needs cardiac rehab order signed by Physician not ERLIN, then will fax ov note, testing to [phone] * Telephone Encounter - Rik Harris RN - 06/25/2023 10:49 AM EDT Patient in office today to see Bertha. Requesting update on cardiac rehab order. Will have office secretary follow up on this. * Telephone Encounter - SON Alvarado CNP - 06/06/2023 4:50 PM EDT Please contact [facility] and ask what order is needed for cardiac rehab. Unable to locate an external cardiac rehab order in our system. documented in this [facility]11-02-2023 Telephone encounter Note* Telephone Encounter - Rik Harris RN - 08/14/2023 2:07 PM EDT Received faxed request from [facility] that they need supporting documentation and that the office note muist address stable angina in supporting documentation. I r/w RBC will have last OVwith Bertha CARBAJAL faxed. [facility] [id number] NoteThe patient called stating [facility] has not received a referral from our office. I called the rehab # [phone] and they confirmed they have not received the referral. I faxed the referral to the fax number their office gave me and informed the patient. , received confirmation fax received.[facility]11-01-2023 Telephone encounter Note* Telephone Encounter - Alize Rosario MA - 08/13/2023 11:55 AM EDT The patient called stating [facility] has not received a referral from our office. I called the rehab # [phone] and they confirmed they have not received the referral. I faxed the referral to the fax number their office gave me and informed the patient. , received confirmation fax received. [place] [id number] Miscellaneous Notes* Telephone Encounter - Alize Rosario MIKE - 08/13/2023 11:55 AM EDT The patient called stating [facility] has not received a referral from our office. I called the rehab # [phone] and they confirmed they have not received the referral. I faxed the referral to the fax number their office gave me and informed the patient. , received confirmation fax received. * Telephone Encounter - Belle Del Cid - 07/15/2023 10:58 AM EDT Faxed new order * Addendum Note - Kathleen Santos MD - 07/15/2023 10:44 AM EDTAddended by: KATHLEEN SANTOS on: 07/15/2023 10:44 AM Modules accepted: Orders * Telephone Encounter - Kathleen Santos MD - 07/15/2023 10:43 AM EDT Re-did referral * Addendum Note - Rik Harris RN - 07/14/2023 4:01 PM EDTAddended by: RIK HARRIS on: 07/14/2023 04:01 PM Modules accepted: Orders * Telephone Encounter - Belle Del Cid - 07/11/2023 9:57 AM EDT Faxed to [facility] * Telephone Encounter - Kathleen Santos MD - 07/11/2023 9:43 AM EDT I did this, thank you * Addendum Note - Kathleen Santos MD - 07/11/2023 9:43 AM EDTAddended by: KATHLEEN SANTOS. on: 07/11/2023 09:43 AM Modules accepted: Orders * Telephone Encounter - Rik Harris RN - 06/25/2023 11:09 AM EDT Images from the original note were not included. Belle Del Cid You 1 minute ago (11:08 AM) [facility], needs cardiac rehab order signed by Physician not ERLIN, then will fax ov note, testing to [phone] * Telephone Encounter - Rik Harris RN - 06/25/2023 10:49 AM EDT Patient in office today to see Bertha. Requesting update on cardiac rehab order. Will have office secretary follow up on this. * Telephone Encounter - SON Alvarado CNP - 06/06/2023 4:50 PM EDT Please contact [facility] and ask what order is needed for cardiac rehab. Unable to locate an external cardiac rehab order in our system. documented in this [facility]11-01-2023 Telephone encounter Note* Telephone Encounter - Lisa Rojo - 08/13/2023 11:29 AM EDT External lab results from [facility] lab clinic added to media folder. [id number] Miscellaneous Notes* Telephone Encounter - Lisa Rojo - 08/13/2023 11:29 AM EDT External lab results from [facility] lab clinic added to media folder. documented in this [id number] History of Present illness Narrative* Bertha Patricio PA-C - 07/16/2023 1:30 PM EDT [facility] Note DATE of SERVICE:07/16/23 [...] also reissued orders for cardiac rehab at [place]. Today she states she is happy to say that she has had less episodes of chest discomfort with the addition of long-acting nitrate. Her EKG also looks improved with a sinus bradycardia, heart rate of 51. Past Medical History: Past Medical History: Diagnosis Date Chronic kidney disease Colon cancer (HCC) Coronary artery disease Hypertension DC (myocardial infarction) (HCC) Past Surgical History Past Surgical History: Procedure Laterality Date CARDIAC CATHETERIZATION N/A 06/06/2023 Performed by Tyrel Miles MD at [facility] Cardiac Cath/EP Lab Family History Family History [...] mouth in the morning., Disp: , Rfl: bjrtgsaurf-jhisgkhbjioiq-zmqsmgjj 50-325-40 MG tablet, Take 1 tablet by [...] She plans to start cardiac rehab at [facility] Hypertension. Blood pressure is controlled. She [...] that appointment as scheduled. documented in this [facility]10-04-2023 History of Present illness Narrative* Bertha Patricio PA-C - 07/16/2023 1:30 PM EDT [facility] Note DATE of SERVICE:08/18/23 [...] also reissued orders for cardiac rehab at [place]. Today she states she is happy to say that she has had less episodes of chest discomfort with the addition of long-acting nitrate. Her EKG also looks improved with a sinus bradycardia, heart rate of 51. Past Medical History: Past Medical History: Diagnosis Date Chronic kidney disease Colon cancer (HCC) Coronary artery disease Hypertension DC (myocardial infarction) (HCC) Past Surgical History Past Surgical History: Procedure Laterality Date CARDIAC CATHETERIZATION N/A 06/06/2023 Performed by Tyrel Miles MD at [facility] Cardiac Cath/EP Lab Family History Family History [...] mg by mouth daily., Disp: , Rfl: iozbkgdspy-lygfvlplqhkuf-lvfwjvga 50-325-40 MG tablet, Take 1 tablet by [...] She plans to start cardiac rehab at [facility] Hypertension. Blood pressure is controlled. She [...] that appointment as scheduled. documented in this [facility]10-03-2023 NoteAddended by: KATHLEEN SANTOS on: 07/15/2023 10:44 AM Modules accepted: [facility]10-03-2023 Telephone encounter Note* Telephone Encounter - Belle Del Cid - 07/15/2023 10:58 AM EDT Faxed new order [facility] [id number] Miscellaneous Notes* Telephone Encounter - Belle Del Cid - 07/15/2023 10:58 AM EDT Faxed new order * Addendum Note - Kathleen Santos MD - 07/15/2023 10:44 AM EDTAddended by: KATHLEEN SANTOS on: 07/15/2023 10:44 AM Modules accepted: Orders * Telephone Encounter - Kathleen Santos MD - 07/15/2023 10:43 AM EDT Re-did referral * Addendum Note - Rik Harris RN - 07/14/2023 4:01 PM EDTAddended by: RIK HARRIS on: 07/14/2023 04:01 PM Modules accepted: Orders * Telephone Encounter - Belle Del Cid - 07/11/2023 9:57 AM EDT Faxed to [facility] * Telephone Encounter - Kathleen Santos MD - 07/11/2023 9:43 AM EDT I did this, thank you * Addendum Note - Kathleen Santos MD - 07/11/2023 9:43 AM EDTAddended by: KATHLEEN SANTOS on: 07/11/2023 09:43 AM Modules accepted: Orders * Telephone Encounter - Rik Harris RN - 06/25/2023 11:09 AM EDT Images from the original note were not included. Belle Del Cid You 1 minute ago (11:08 AM) [facility], needs cardiac rehab order signed by Physician not ERLIN, then will fax ov note, testing to [phone] * Telephone Encounter - Rik Harris RN - 06/25/2023 10:49 AM EDT Patient in office today to see Bertha. Requesting update on cardiac rehab order. Will have office secretary follow up on this. * Telephone Encounter - SON Alvarado CNP - 06/06/2023 4:50 PM EDT Please contact [place] [facility] and ask what order is needed for cardiac rehab. Unable to locate an external cardiac rehab order in our system. documented in this [facility]SMer[facility] Anne HospitalDbpnjs74-87-0081 Note* Addendum Note - Kathleen Santos MD - 07/15/2023 10:44 AM EDTAddended by: KATHLEEN SANTOS. on: 07/15/2023 10:44 AM Modules accepted: Orders [facility] HospitalCasfvy71-63-1495 Note* Addendum Note - Kathleen Santos MD - 07/15/2023 10:44 AM EDTAddended by: KATHLEEN SANTOS on: 07/15/2023 10:44 AM Modules accepted: Orders [place] [id number] Note* Addendum Note - Kathleen Santos MD - 07/15/2023 10:44 AM EDTAddended by: KATHLEEN SANTOS on: 07/15/2023 10:44 AM Modules accepted: Orders [place] [id number] Note* Addendum Note - Kathleen Santos MD - 07/15/2023 10:44 AM EDTAddended by: KATHLEEN SANTOS on: 07/15/2023 10:44 AM Modules accepted: Orders [place] [id number] Note* Addendum Note - Kathleen Santos MD - 07/15/2023 10:44 AM EDTAddended by: KATHLEEN SANTOS on: 07/15/2023 10:44 AM Modules accepted: Orders [place] [id number] Note* Addendum Note - Kathleen Santos MD - 07/15/2023 10:44 AM EDTAddended by: KATHLEEN SANTOS on: 07/15/2023 10:44 AM Modules accepted: Orders [facility] HospitalDfzzwf93-01-1748 Note* Addendum Note - Kathleen Santos MD - 07/15/2023 10:44 AM EDTAddended by: KATHLEEN SANTOS on: 07/15/2023 10:44 AM Modules accepted: Orders [place] [id number] Note* Addendum Note - Kathleen Santos MD - 07/15/2023 10:44 AM EDTAddended by: KATHLEEN SANTOS on: 07/15/2023 10:44 AM Modules accepted: Orders [place] [id number] Note* Addendum Note - Kathleen Santos MD - 07/15/2023 10:44 AM EDTAddended by: KATHLEEN SANTOS on: 07/15/2023 10:44 AM Modules accepted: Orders [place] [id number] Note* Addendum Note - Kathleen Santos MD - 07/15/2023 10:44 AM EDTAddended by: KATHLEEN SANTOS on: 07/15/2023 10:44 AM Modules accepted: Orders [place] [id number] Note* Addendum Note - Kathleen Santos MD - 07/15/2023 10:44 AM EDTAddended by: KATHLEEN SANTOS on: 07/15/2023 10:44 AM Modules accepted: Orders [place] [id number] Note* Addendum Note - Kathleen Santos MD - 07/15/2023 10:44 AM EDTAddended by: KATHLEEN SANTOS on: 07/15/2023 10:44 AM Modules accepted: Orders [place] [id number] Note* Addendum Note - Kathleen Santos MD - 07/15/2023 10:44 AM EDTAddended by: KATHLEEN SANTOS on: 07/15/2023 10:44 AM Modules accepted: Orders [facility] HospitalNtigtq86-92-7911 Note* Addendum Note - Kathleen Santos MD - 07/15/2023 10:44 AM EDTAddended by: KATHLEEN SANTOS on: 07/15/2023 10:44 AM Modules accepted: Orders [facility] HospitalLffyto78-87-1004 Telephone encounter Note* Telephone Encounter - Kathleen Santos MD - 07/15/2023 10:43 AM EDT Re-did referral [place] [id number] NoteAddended by: RIK HARRIS on: 07/14/2023 04:01 PM Modules accepted: [facility]10-02-2023 Note* Addendum Note - Rik Harris RN - 07/14/2023 4:01 PM EDTAddended by: RIK HARRIS on: 07/14/2023 04:01 PM Modules accepted: Orders [facility] [id number] Note* Addendum Note - Rik Harris RN - 07/14/2023 4:01 PM EDTAddended by: RIK HARRIS on: 07/14/2023 04:01 PM Modules accepted: Orders [facility] [id number] Note* Addendum Note - Rik Harris RN - 07/14/2023 4:01 PM EDTAddended by: RIK HARRIS on: 07/14/2023 04:01 PM Modules accepted: Orders [place] [id number] Note* Addendum Note - Rik Harris RN - 07/14/2023 4:01 PM EDTAddended by: RIK HARRIS on: 07/14/2023 04:01 PM Modules accepted: Orders [place] [id number] Note* Addendum Note - Rik Harris RN - 07/14/2023 4:01 PM EDTAddended by: RIK HARRIS on: 07/14/2023 04:01 PM Modules accepted: Orders [place] [id number] Note* Addendum Note - Rik Harris RN - 07/14/2023 4:01 PM EDTAddended by: RIK HARRIS on: 07/14/2023 04:01 PM Modules accepted: Orders [place] [id number] Note* Addendum Note - Rik Harris RN - 07/14/2023 4:01 PM EDTAddended by: RIK HARRIS on: 07/14/2023 04:01 PM Modules accepted: Orders [place] [id number] Note* Addendum Note - Rik Harris RN - 07/14/2023 4:01 PM EDTAddended by: RIK HARRIS on: 07/14/2023 04:01 PM Modules accepted: Orders [place] [id number] Note* Addendum Note - Rik Harris RN - 07/14/2023 4:01 PM EDTAddended by: RIK HARRIS on: 07/14/2023 04:01 PM Modules accepted: Orders [place] [id number] Note* Addendum Note - Rik Harris RN - 07/14/2023 4:01 PM EDTAddended by: RIK HARRIS on: 07/14/2023 04:01 PM Modules accepted: Orders [place] [id number] Note* Addendum Note - Rik Harris RN - 07/14/2023 4:01 PM EDTAddended by: RIK HARRIS on: 07/14/2023 04:01 PM Modules accepted: Orders [place] [id number] Note* Addendum Note - Rik Harris RN - 07/14/2023 4:01 PM EDTAddended by: RIK HARRIS on: 07/14/2023 04:01 PM Modules accepted: Orders [place] [id number] Note* Addendum Note - Rik Harris RN - 07/14/2023 4:01 PM EDTAddended by: RIK HARRIS on: 07/14/2023 04:01 PM Modules accepted: Orders [place] [id number] Note* Addendum Note - Rik Harris RN - 07/14/2023 4:01 PM EDTAddended by: RIK HARRIS on: 07/14/2023 04:01 PM Modules accepted: Orders [place] [id number] Note* Addendum Note - Rik Harris RN - 07/14/2023 4:01 PM EDTAddended by: RIK HARRIS on: 07/14/2023 04:01 PM Modules accepted: Orders [place] [id number] Miscellaneous Notes* Addendum Note - Rik Harris RN - 07/14/2023 4:01 PM EDTAddended by: RIK HARRIS on: 07/14/2023 04:01 PM Modules accepted: Orders * Telephone Encounter - Belle Del Cid - 07/11/2023 9:57 AM EDT Faxed to [place] [facility] * Telephone Encounter - Kathleen Santos MD - 07/11/2023 9:43 AM EDT I did this, thank you * Addendum Note - Kathleen Santos MD - 07/11/2023 9:43 AM EDTAddended by: KATHLEEN SANTOS on: 07/11/2023 09:43 AM Modules accepted: Orders * Telephone Encounter - Rik Harris RN - 06/25/2023 11:09 AM EDT Images from the original note were not included. Belle Del Cid You 1 minute ago (11:08 AM) [facility], needs cardiac rehab order signed by Physician not ERLIN, then will fax ov note, testing to [phone] * Telephone Encounter - Rik Harris RN - 06/25/2023 10:49 AM EDT Patient in office today to see Bertha. Requesting update on cardiac rehab order. Will have office secretary follow up on this. * Telephone Encounter - SON Alvarado CNP - 06/06/2023 4:50 PM EDT Please contact [place] [facility] and ask what order is needed for cardiac rehab. Unable to locate an external cardiac rehab order in our system. documented in this [facility]09-29-2023 NoteAddended by: KATHLEEN SANTOS on: 07/11/2023 09:43 AM Modules accepted: [facility]09-29-2023 Telephone encounter Note* Telephone Encounter - Belle Del Cid - 07/11/2023 9:57 AM EDT Faxed to [place] [facility]Xtaqrh90-33-1318 Miscellaneous Notes* Telephone Encounter - Belle Del Cid - 07/11/2023 9:57 AM EDT Faxed to [place] [facility] * Telephone Encounter - Kathleen Santos MD - 07/11/2023 9:43 AM EDT I did this, thank you * Addendum Note - Kathleen Santos MD - 07/11/2023 9:43 AM EDTAddended by: KATHLEEN SANTOS. on: 07/11/2023 09:43 AM Modules accepted: Orders * Telephone Encounter - Rik Harris RN - 06/25/2023 11:09 AM EDT Images from the original note were not included. Belle Del Cid You 1 minute ago (11:08 AM) [facility], needs cardiac rehab order signed by Physician not ERLIN, then will fax ov note, testing to [phone] * Telephone Encounter - Rik Harris RN - 06/25/2023 10:49 AM EDT Patient in office today to see Bertha. Requesting update on cardiac rehab order. Will have office secretary follow up on this. * Telephone Encounter - SON Alvarado CNP - 06/06/2023 4:50 PM EDT Please contact [place] [facility] and ask what order is needed for cardiac rehab. Unable to locate an external cardiac rehab order in our system. documented in this [facility]SMer[facility] Health St. Anne HospitalDbhqwv02-60-1948 Telephone encounter Note* Telephone Encounter - Kathleen Santos MD - 07/11/2023 9:43 AM EDT I did this, thank you [facility] HospitalCrjqfd52-58-5390 Note* Addendum Note - Kathleen Santos MD - 07/11/2023 9:43 AM EDTAddended by: KATHLEEN SANTOS. on: 07/11/2023 09:43 AM Modules accepted: Orders [address]Ssvhub08-67-4446 Note* Addendum Note - Kathleen Santos MD - 07/11/2023 9:43 AM EDTAddended by: KATHLEEN SANTOS on: 07/11/2023 09:43 AM Modules accepted: Orders [address]Ineyug69-60-1536 Note* Addendum Note - Kathleen Santos MD - 07/11/2023 9:43 AM EDTAddended by: KATHLEEN SANTOS. on: 07/11/2023 09:43 AM Modules accepted: Orders [address]Ypaszx46-64-5747 Note* Addendum Note - Kathleen Santos MD - 07/11/2023 9:43 AM EDTAddended by: KATHLEEN SANTOS on: 07/11/2023 09:43 AM Modules accepted: Orders [address]Plhmwb58-15-0618 Note* Addendum Note - Kathleen Santos MD - 07/11/2023 9:43 AM EDTAddended by: KATHLEEN SANTOS on: 07/11/2023 09:43 AM Modules accepted: Orders [address]Gozmmn91-63-8474 Note* Addendum Note - Kathleen Santos MD - 07/11/2023 9:43 AM EDTAddended by: KATHLEEN SANTOS on: 07/11/2023 09:43 AM Modules accepted: Orders [address]Gsfble17-12-3238 Note* Addendum Note - Kathleen Santos MD - 07/11/2023 9:43 AM EDTAddended by: KATHLEEN SANTOS on: 07/11/2023 09:43 AM Modules accepted: Orders [address]Szerqw93-14-5499 Note* Addendum Note - Kathleen Santos MD - 07/11/2023 9:43 AM EDTAddended by: KATHLEEN SANTOS on: 07/11/2023 09:43 AM Modules accepted: Orders [address]Ntydln90-10-2521 Note* Addendum Note - Kathleen Santos MD - 07/11/2023 9:43 AM EDTAddended by: KATHLEEN SANTOS on: 07/11/2023 09:43 AM Modules accepted: Orders [address]Myatam08-04-6059 Note* Addendum Note - Kathleen Santos MD - 07/11/2023 9:43 AM EDTAddended by: KATHLEEN SANTOS on: 07/11/2023 09:43 AM Modules accepted: Orders [address]Tjppdp95-52-2357 Note* Addendum Note - Kathleen Santos MD - 07/11/2023 9:43 AM EDTAddended by: KATHLEEN SANTOS on: 07/11/2023 09:43 AM Modules accepted: Orders [address]Cyczua59-06-8095 Note* Addendum Note - Kathleen Santos MD - 07/11/2023 9:43 AM EDTAddended by: KATHLEEN SANTOS on: 07/11/2023 09:43 AM Modules accepted: Orders [address]Tkoxjw93-09-6270 Note* Addendum Note - Kathleen Santos MD - 07/11/2023 9:43 AM EDTAddended by: KATHLEEN SANTOS on: 07/11/2023 09:43 AM Modules accepted: Orders [address]Kzcegl88-00-7158 Note* Addendum Note - Kathleen Santos MD - 07/11/2023 9:43 AM EDTAddended by: KATHLEEN SANTOS on: 07/11/2023 09:43 AM Modules accepted: Orders [address]Wttmet12-52-5468 Note* Addendum Note - Kathleen Santos MD - 07/11/2023 9:43 AM EDTAddended by: KATHLEEN SANTOS on: 07/11/2023 09:43 AM Modules accepted: Orders [address]Vxjhtb89-12-0317 Note* Addendum Note - Kathleen Santos MD - 07/11/2023 9:43 AM EDTAddended by: KATHLEEN SANTOS. on: 07/11/2023 09:43 AM Modules accepted: Orders [address]Jttjnf55-39-2085 Note* Addendum Note - Kathleen Santos MD - 07/11/2023 9:43 AM EDTAddended by: KATHLEEN SANTOS. on: 07/11/2023 09:43 AM Modules accepted: Orders [address]Ysrhbt17-47-5726 Note* Addendum Note - Kathleen Santos MD - 07/11/2023 9:43 AM EDTAddended by: KATHLEEN SANTOS. on: 07/11/2023 09:43 AM Modules accepted: Orders [place] [address]Xwtgzs69-83-4359 Note* Addendum Note - Kathleen Santos MD - 07/11/2023 9:43 AM EDTAddended by: KATHLEEN SANTOS. on: 07/11/2023 09:43 AM Modules accepted: Orders [facility] HospitalFmruyh62-03-8008 Telephone encounter Note* Telephone Encounter - Vero Wu MD - 07/04/2023 8:26 AM EDT Offer her September 02 (Friday) at [place] at 1120am. This is NOT where she saw me before but sheis coming from [place] and this might be closer than [place]. If she prefers [place], I will see where I can overbook. GvjbjHyasvt94-03-1408 Miscellaneous Notes* Telephone Encounter - Vero Wu MD - 07/04/2023 8:26 AM EDT Offer her September 02 (Friday) at [place] at 1120am. This is NOT where she saw me before but sheis coming from [place] and this might be closer than [place]. If she prefers [place], I will see where I can overbook. * Telephone Encounter - Fernanda Arroyo - 06/30/2023 3:19 PM EDT Patient returned clinic call. Informed of message per notes below. Patient verbalized understandingand voiced no further questions. Pt stated cant come at 745 because shes coming from [place], [place] she needs 11am or later. * Telephone Encounter - Zulay Jefferson RN - 06/30/2023 2:53 PM EDT Attempted to contact pt No answer Message left asking for pt to call office back, if pt does call back can you please relay message Vero Wu MD 43 minutes ago (2:09 PM) Please let her know labs were ok. Not a lot of inflammation. Xrays showed one questionable erosion (rheumatoid damage) but overall were ok. Please offer her 745am on August 25 at [place] if sheis willing * Telephone Encounter - Vero Wu MD - 06/30/2023 2:08 PM EDT Please let her know labs were ok. Not a lot of inflammation. Xrays showed one questionable erosion (rheumatoid damage) but overall were ok. Please offer her 745am on August 25 at [place] if sheis willing * Telephone Encounter - Vero Wu MD - 06/20/2023 9:09 AM EDT Please arrange for September 01 f2f in [place] (held template but no longer taking vacation). Thanks! documented in this veavrysgfBgpopDsyedo20-18-9810 NoteHNO ID: [id number] Author: Handy Bates MD Service: ? Author Type: Physician Type: Progress Notes Filed: 07/01/2023 2:00 PM Note Text: HISTORY OF PRESENT ILLNESS: Lisbeth Craven is a 63 year old female history colon cancer found on basis of bleeding. She is on ac due to prior DC. 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 [...] (FLONASE) 50 mcg/actuation nasal spray Use 1 [place] in each nostril once daily as needed. [...] which included preparing to see the patient, gbgi-bk-rhdn patient care, completing clinical documentation, obtaining and/or reviewing sepa (more content not included)...[facility]09-18-2023 Telephone encounter Note* Telephone Encounter - Fernanda Arroyo - 06/30/2023 3:19 PM EDT Patient returned clinic call. Informed of message per notes below. Patient verbalized understandingand voiced no further questions. Pt stated cant come at 745 because shes coming from [place], [place] she needs 11am or later. FihvjIieyvg12-98-3297 Miscellaneous Notes* Telephone Encounter - Fernanda Arroyo - 06/30/2023 3:19 PM EDT Patient returned clinic call. Informed of message per notes below. Patient verbalized understandingand voiced no further questions. Pt stated cant come at 745 because shes coming from [place] she needs 11am or later. * Telephone Encounter - Zulay Jefferson RN - 06/30/2023 2:53 PM EDT Attempted to contact pt No answer Message left asking for pt to call office back, if pt does call back can you please relay message Vero Wu MD 43 minutes ago (2:09 PM) Please let her know labs were ok. Not a lot of inflammation. Xrays showed one questionable erosion (rheumatoid damage) but overall were ok. Please offer her 745am on August 25 at [place] if sheis willing * Telephone Encounter - Vero Wu MD - 06/30/2023 2:08 PM EDT Please let her know labs were ok. Not a lot of inflammation. Xrays showed one questionable erosion (rheumatoid damage) but overall were ok. Please offer her 745am on August 25 at [place] if sheis willing * Telephone Encounter - Vero Wu MD - 06/20/2023 9:09 AM EDT Please arrange for September 01 f2f in [place] (held template but no longer taking vacation). Thanks! documented in this [id number] Telephone encounter Note* Telephone Encounter - Zulay Jefferson RN - 06/30/2023 2:53 PM EDT Attempted to contact pt No answer Message left asking for pt to call office back, if pt does call back can you please relay message Vero Wu MD 43 minutes ago (2:09 PM) Please let her know labs were ok. Not a lot of inflammation. Xrays showed one questionable erosion (rheumatoid damage) but overall were ok. Please offer her 745am on August 25 at [place] if sheis willing [facility] Work Phone: 1(341) 559-533009-18-2023 Telephone encounter Note* Telephone Encounter - Vero Wu MD - 06/30/2023 2:08 PM EDT Please let her know labs were ok. Not a lot of inflammation. Xrays showed one questionable erosion (rheumatoid damage) but overall were ok. Please offer her 745am on August 25 at [place] if sheis willing [id number] History of Present illness Narrative* Handy Bates MD - 06/30/2023 1:43 PM EDT HISTORY OF PRESENT ILLNESS: Lisbeth Craven is a 63 year old female history colon cancer found onbasis of bleeding. She is on ac due to prior DC. 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 [...] (FLONASE) 50 mcg/actuation nasal spray Use 1 [place] in each nostril once daily as needed. [...] which included preparing to see the patient, lviy-jz-pvox patient care, completing clinical documentation, obtaining and/or reviewing separately obtained history, counseling and educating the patient/family/caregiver, ordering medications, daniele ts, or procedures, independently interpreting results (not separately reported), and communicating results to the patient/family/caregiver. Electronically Signed: Handy Bates MD June 30, 2023 1:43 PM documented in this encounterTrihealth [facility]09-13-2023 Telephone encounter Note * Telephone Encounter - Rik Harris RN - 06/25/2023 11:09 AM EDT Images from the original note were not included. Belle Del Cid You 1 minute ago (11:08 AM) [facility], needs cardiac rehab order signed by Physician not ERLIN, then will fax ov note, testing to [phone] [facility] HospitalLhjwni07-10-4931 Miscellaneous Notes* Telephone Encounter - Rik Harris RN - 06/25/2023 11:09 AM EDT Images from the original note were not included. Belle Del Cid You 1 minute ago (11:08 AM) [facility], needs cardiac rehab order signed by Physician not ERLIN, then will fax ov note, testing to [phone] * Telephone Encounter - Rik Harris RN - 06/25/2023 10:49 AM EDT Patient in office today to see Bertha. Requesting update on cardiac rehab order. Will have office secretary follow up on this. * Telephone Encounter - SON Alvarado CNP - 06/06/2023 4:50 PM EDT Please contact [place] [facility] and ask what order is needed for cardiac rehab. Unable to locate an external cardiac rehab order in our system. documented in this encounterSMercy Health St. Anne HospitalHhpres86-93-0890 Telephone encounter Note* Telephone Encounter - Rik Harris RN - 06/25/2023 10:49 AM EDT Patient in office today to see Bertha. Requesting update on cardiac rehab order. Will have office secretary follow up on this. [facility] HospitalBoasye32-91-8011 History of Present illness Narrative* Bertha Patricio PA-C - 06/25/2023 9:30 AM EDT [facility] Card[facility] Note DATE of SERVICE:06/25/23 [...] Colon cancer (HCC) Coronary artery disease Hypertension DC (myocardial infarction) (CMS/HCC) ([facility]) Past Surgical History Past Surgical History: Procedure Laterality Date CARDIAC CATHETERIZATION N/A 06/06/2023 Performed by Tyrel Miles MD at [facility] Cardiac Cath/EP Lab Family History Family History [...] mouth in the morning., Disp: , Rfl: jdtguzihze-hhmfzikleurkq-khyrhdxg 50-325-40 MG tablet, Take 1 tablet by [...] any problems should arise. documented in this [facility]09-08-2023 Telephone encounter Note* Telephone Encounter - Vero Wu MD - 06/20/2023 9:09 AM EDT Please arrange for September 01 [facility] in [place] (held template but no longer taking vacation). Thanks! [id number] Instructions* Patient Instructions* Vero Wu MD - 06/09/2023 1:48 PM EDT Stay on pred 5mg (old pills) this week: Start jun 13 (Friday) 1mg pill x 4 (all 4 at once) every morning for June and July and September: 3mg (3x 1mg pills) every day October-: 2mg every day Hopefully plan: December-January 1mg daily Then Stop in february documented in this [id number] History of Present illness Narrative* Vero Wu MD - 06/09/2023 12:59 PM EDT New Rheumatology Note CC: RA Referred by: Dr Cristel Valenzuela HPI: Lisbeth Craven is a 63 year old female here for evaluation of above complaint Was seeing Dr Fabien Wyman in [facility]; dx RA 2014; moved to [place] to be closed to family about 1 [...] small fiber (skin biopsy proven); cad s/p DC (3 stents); DMII; gerd; osteopenia; s/p back [...] menopause; has had two (?3?) fibular 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 Unable to locate an external cardiac rehab order in our system. [facility] HospitalYkztrq37-05-9725 NoteName: Lisbeth Craven Date of : 1960 Date of Admission: 06/05/2023 Date of Discharge: 06/06/2023 Admitting physician: Kathleen Santos MD Discharge Attending: SON Alvarado CNP, [...] cardiac catheterization was March 02, 2022 at [facility] in [place]. According to that report her left main [...] They were accompanied b (more content not included)...[facility] 06-06-2023 Hospital Discharge instructions* Discharge Instructions* Talisha Cardozo APRN - SUPERVISOR [employer] - 06/06/2023 2:44 PM EDT Call your doctor with any medication questions or if you notice any side effects from your medications. If you are unable to fill your medications, please call your Machine Joiner Cementer immediately. The office number is located with [...] be gone by tomorrow. documented in this [facility]08-25-2023 Hospital course Narrative* SON Alvarado CNP - 06/06/2023 1:59 PM EDT Name: Lisbeth Craven Date of : 1960 Date of Admission: 06/05/2023 Date of Discharge: 06/06/2023 Admitting physician: Kathleen Santos MD Discharge Attending: Talisha Cardozo APRN - ROE, Kathleen Santos MD Primary Care Physician: Cristel Valenzuela [...] ca theterization was March 02, 2022 at [facility] in [place]. According to that report her left main [...] MG EC tablet b complex vitamins capsule uzrmgehcts-rucctqlamgcxx-bbcwgywj 50-325-40 MG tablet cetirizine 5 MG tablet [...] Your Medications These medications were sent to [facility] [place], [place] - [address] [address] carvedilol 6.25 MG tablet rosuvastatin 20 MG tablet ICD Registry Information/AMI Registry Information NYHA Functional Classification: Class I Medical Therapy Aspirin: Yes DAYAN/ARB: yes Statin: Yes Beta Kleber: Yes P2Y12 Inhibitors : Yes Aldosterone inhibitor :N/a Cardiac rehab Discussed with patient -will refer to [place] [facility] BMI Classification: Overweight (BMI 25.0-29.9) DIET: A lowfat, low cholesterol diet was discussed with the patient. Discharge to Home Condition at Discharge: good Follow up with cardiology: Bertha Patricio Jun 25 9:30 am If any questions call [facility] office [phone] Total time spent for Discharge time greater than 31 minutes Electronically signed by Talisha Cardozo APRN-SUPERVISOR [employer] documented in this [facility]08-25-2023 Miscellaneous Notes* Pre- Sedation Documentation - [...] administer sedation as planned. Maddi Mitchell MD * Care Plan - Jordan [...] Limits Permission given to speak with patient guest experience representative/caregiver as indicated: Confirmation of Payer with patient/family: Yes Payer Name: [place]: No Confirmation of Primary Care Physician: Confirmed [...] Prescription Coverage: Yes Pharmacy Used: [facility] in [place] Medication Management: Independent Transportation/Shopping: Independent Transportation Mode: [...] these barriers include n/a. documented in this [facility]08-25-2023 Note* Pre-Sedation Documentation - Maddi Mitchell [...] administer sedation as planned. Maddi Mitchell MD [employer] Work Phone: 1(664) 701-410708-25-2023 Plan of care note* Care Plan - [...] Recommendations to address these barriers include n/a. T [employer] Network [id number] History of Present illness Narrative* SON Alvarado CNP - 06/06/2023 9:32 AM EDT Discussed case with Dr Miles. Plan for allergy prep moving forward is: IV solu cortef 200mg IV one hour prior Benadryl and Pepcid as ordered previously one hour prior Will notify staff when timing of cath is known IV NS at 75 hr ordered for reduced GFR documented in this [facility]08-24-2023 NoteACH CDU [address] [facility] [address] Dept: [phone] Please see my progress note that will [...] last cardiac catheterization which was done at [facility] in [place]. This was done a little over a [...] agree with the plan. I notified our registered medical transcriptionist, Dr. Miles. Addendum June 17, 2023. In addition to the above, she has stage III chronic kidney disease, something we were following and taking into account with her cardiac catheterization.[facility]08-24-2023 History and physical note* Kathleen Santos MD - 06/05/2023 8:47 PM EDT Images from the original note were not included. [facility] [address] [facility] [address] Dept: [phone] Please see my progress note that will [...] her last cardiac catheterization whichwas done at [facility] in [place]. This was done a little over a [...] agree with the plan. I notified our registered medical transcriptionist, Dr. Miles. [facility] HospitalAvuaij61-95-5702 History and physical note* Kathleen Santos MD - 06/05/2023 8:47 PM EDT Images from the original note were not included. [address] [address] Dept: [phone] Please see my progress note that will [...] her last cardiac catheterization whichwas done at [facility] in [place]. This was done a little over a [...] agree with the plan. I notified our registered medical transcriptionist, Dr. Miles. documented in this [facility]08-24-2023 Plan of care note* Care Plan [...] the shift include CP 3/10 or less [address]Ydbcwo91-87-6875 Note* Care Coordination - Zulay Ellis RN - 06/05/2023 5:21 PM EDT Care Managment Initial Assessment Date: 06/05/2023 Patient Name: Lisbeth Craven : 1960 Patient Information Source of Information: Patient Cognition/Language: WFL - Within Functional Limits Permission given to speak with patient guest experience representative/caregiver as indicated: Confirmation of Payer with patient/family: Yes Payer Name: : No Confirmation of Primary Care Physician: Confirmed [...] Daily Living Prescription Coverage: Yes Pharmacy Used: [facility] in [place] Medication Management: Independent Transportation/Shopping: Independent Transportation Mode: [...] No needs identified .. Zulay Ellis RN [facility] HospitalPkkldy61-01-7495 Plan of care note* Care Plan - [...] Recommendations to address these barriers include n/a. [place] [id number] History of Present illness Narrative* Kathleen Santos MD - 06/05/2023 11:40 AM EDT Images from the original note were not included. [facility] [address] [facility] [address] Dept: [phone] Dept Loc: [phone] DATE of SERVICE:06/05/23 TIME of SERVICE: 12:03 [...] March 02, 2022. This was done at [facility] in [place]. Her left main was normal. She had nonobstructive atherosclerosis in the LAD. She had a 40 to 50% circumflexlesion. She had a subtotal and occlusion of some small obtuse marginal branches. The culprit vesselat that time was a 99% mid right coronary artery lesion. That was stented. Her ejection fraction ended up being about 50%. I last saw her 2022. She saw Bertha Camposs February 24, 2023. At that visit she [...] Chronic kidney disease Coronary artery disease Hypertension DC (myocardial infarction) ([facility]/HCC) ([facility]) Past Surgical History History reviewed. No pertinent [...] mouth in the morning., Disp: , Rfl: mymhhzmjtg-medpybrrowjoo-npvkxtxe 50-325-40 MG tablet, Take 1 tablet by [...] later today or tomorrow. documented in this [facility]07-13-2023 NoteHNO ID: [id number] Author: RT Buster(Judith) Service: ? Author Type: Operations Vocational Instructor Type: Progress Notes Filed: 04/24/2023 3:43 PM [...] BY: RT Regino(R) April 24, 2023 3:43 [facility]07-13-2023 History of Present illness Narrative* Bria Bocanegra [...] 24, 2023 3:43 PM documented in this encounterTrihealth [facility]07-07-2023 Miscellaneous Notes* Telephone Encounter - Tiffanie Keyes LPN - 04/18/2023 12:40 PM EDT See other phone note. Patient does not require hydration, CT's are WO contrast d/t allergy. Patientnotified. Tiffanie Keyes LPN * Telephone Encounter - Sandy Gómez - 04/18/2023 12:06 PM EDT Patient is asking if she will be needing IV fluids before or after scheduled. CT. She states she has kidney disease. Please advise. documented in this encounterTrihealth Good Samaritan Hospital06-26-2023 Miscellaneous Notes* Telephone Encounter - Buffy [...] has questions re: CT ordered by Dr. Vasuqez. Please advise. Felicity Higgins documented in this encounterTrihealth Good Samaritan Hospital06-23-2023 NoteHNO ID: [id number] Author: Eliecer Vasquez MD Service: ? Author Type: Physician Type: Progress Notes Filed: 04/04/2023 1:51 PM Note Text: [facility] Progress Note SERVICE DATE: April 04, 2023 [...] (FLONASE) 50 mcg/actuation nasal spray Use 1 [place] in each nostril once daily as needed. [...] leg: No edema. Left (more content not included)...[facility]06[facility] History of Present illness Narrative* Eliecer Vasquez MD - 04/04/2023 1:24 PM EDT Images from the original note were not included. [facility] Progress Note SERVICE DATE: April 04, 2023 [...] (FLONASE) 50 mcg/actuation nasal spray Use 1 [place] in each nostril once daily as needed. [...] cc: Cristel Valenzuela MD documented [facility] encounter[facility] History of Present illness Narrative* Alize Hernandez MA - 02/24/2023 10:30 AM EDT ek * Bertha Patricio PA-C - 02/24/2023 10:30 AM EDT [facility] Cardiology Note DATE of SERVICE:02/24/23 [...] any anginal symptoms throughout all of this. Unfortunatelytoni did not complete cardiac rehab. She states that she had problems getting records that we have requested in [place]. I did find the cath report and echocardiogram in care everywhere. We printed these off so that she could call back to [place] [facility]hab to see if she could potentially enroll as she is still within the 1 year window. Past Medical History: Past Medical History: Diagnosis Date Chronic kidney disease Coronary artery disease Hypertension DC (myocardial infarction) (CMS/HCC) (HCC) Past Surgical History [...] mouth in the morning., Disp: , Rfl: ixszkchkrh-dxpshokfgmauz-pfclkeis 50-325-40 MG tablet, Take 1 tablet by [...] any problems should arise. documented in this encounterSMercy Health St. Anne [id number] Telephone encounter Note* Telephone Encounter - [place], [place] - 02/03/2023 3:31 PM EDT Spoke to pt. Pt states BV is to far. Will call and reschedule in the future if needed. [id number] Miscellaneous Notes* Telephone Encounter - Chevy Lui - 02/03/2023 3:31 PM EDT Spoke to pt. Pt states BV is to far. Will call and reschedule in the future if needed. documented in this [id number] NoteHNO ID: [id number] Author: Susan Alvares MD Service: ? Author Type: Physician [...] RELIEF) 50 mcg/actuation nasal spray Use 1 [place] in each nostril once daily as needed. [...] questions and these were answered in detail. Susan Alvares MD cc: Susan Valenzuela, [facility]03-22-2023 History of Present illness Narrative* Susan Alvares MD - 01/01/2023 4:28 PM EDT [...] RELIEF) 50 mcg/actuation nasal spray Use 1 [place] in each nostril once daily as needed. [...] questions and these were answered in detail. Susan Alvares MD cc: Susan Valenzuela MD documented in this encounterTri[facility]-08-2023 NoteHNO ID: [id number] Author: Susan Alvares MD Service: ? Author Type: Physician [...] RELIEF) 50 mcg/actuation nasal spray Use 1 [place] in each nostril once daily as needed. [...] and no sign (more content not included)... [facility]03-08-2023 History of Present illness Narrative* Susan Alvares MD - 12/18/2022 2:22 PM EST [...] RELIEF) 50 mcg/actuation nasal spray Use 1 [place] in each nostril once daily as needed. [...] headaches diplopia ataxia or symptoms to suggest [employer] metastasis Denies dysuria increased urinary frequency hesitancy urgency or hematuria PHYSICAL EXAM: BP 126/62 Pulse 84 Temp 36.3 C (97.3 F) (Temporal) Ht 172.7 cm (5' 8 ) Wt 81.4 kg (179 lb 8 oz) BMI 27.29 kg/m2 Body mass index is 27.29 kg/m [...] in the care of this delightful lady. Susan Alvares MD cc: Daniela Valenzuela MD documented in this encounterTri[facility]05-24-2022 [facility]* Diagnosis Malignant neoplasm of ascending colon (HCC)- Primary Malignant neoplasm of ascending colon documented in this encounter [facility] note* Diagnosis Malignant neoplasm of ascending colon (HCC)- Primary Malignant neoplasm of ascending colon documented in this encounter [facility] note* Diagnosis Primary hypertension- Primary Unspecified essential hypertension Coronary artery disease involving [place] coronary artery of [place] heart without angina pectoris documented [facility] this encounter [facility]* Diagnosis Malignant neoplasm of ascending colon (HCC)- Primary Malignant neoplasm of ascending colon documented in this encounter [facility] note* Diagnosis Malignant neoplasm of ascending colon (HCC)- Primary Malignant neoplasm of ascending colon documented in this encounter [facility] note* Diagnosis Coronary artery disease, unspecified vessel or lesion type, unspecified whether angina present, unspecified whether [place] or transplanted heart Chest pain Unspecified chest pain [facility]* Diagnosis Chest discomfort- Primary Other chest pain Chest pain Unspecified chest pain Coronary artery disease involving [place] coronary artery of [place] heart without angina pectoris Chest pain Unspecified chest pain Chest pain, unspecified type documented in this encounter [facility] note* Diagnosis Menopause- Primary Symptomatic menopausal or female climacteric states Rheumatoid arthritis involving multiple sites, unspecified whether rheumatoid factor present (HCC) Osteopenia of multiple sites Stage 3a chronic kidney disease (HCC) Rheumatoid arthritis involving multiple sites, unspecified whether rheumatoid factor present (HCC) [facility] Diagnosis Rheumatoid arthritis involving multiple sites, unspecified whether rheumatoid factor present (HCC) [facility]* Diagnosis Rheumatoid arthritis involving multiple sites, unspecified whether rheumatoid factor present (HCC)- Primary documented in this encounter [facility]* Diagnosis Coronary artery disease, unspecified vessel or lesion type, unspecified whether angina present, unspecified whether [place] or transplanted heart- Primary Angina pectoris, unstable (CMS/HCC) (HCC) Intermediate coronary syndrome [facility]* Diagnosis Chest pain, unspecified type [facility]* Diagnosis Malignant neoplasm of ascending colon (HCC)- Primary Malignant neoplasm of ascending colon documented in this encounter [facility] note* Diagnosis Coronary artery disease, unspecified vessel or lesion type, unspecified whether angina present, unspecified whether [place] or transplanted heart- Primary documented [facility]* Diagnosis Coronary artery disease, unspecified vessel or lesion type, unspecified whether angina present, unspecified whether [place] or transplanted heart- Primary [facility]* Diagnosis Coronary artery disease, unspecified vessel or lesion type, unspecified whether angina present, unspecified whether [place] or transplanted heart- Primary Angina pectoris (HCC) Other and unspecified angina pectoris [facility]* Diagnosis Coronary artery disease involving [place] coronary artery of [place] heart without angina pectoris- Primary Chest pain, unspecified type Primary hypertension Unspecified essential hypertension [facility]* Diagnosis Coronary artery disease, unspecified vessel or lesion type, unspecified whether angina present, unspecified whether [place] or transplanted heart- Primary Angina pectoris (HCC) Other and unspecified angina pectoris [facility]* Diagnosis Coronary artery disease, unspecified vessel or lesion type, unspecified whether angina present, unspecified whether [place] or transplanted heart- Primary Angina pectoris (HCC) Other and unspecified angina pectoris [facility]* Diagnosis Angina pectoris (HCC)- Primary Other and unspecified angina pectoris Coronary artery disease involving [place] coronary artery of [place] heart without angina pectoris [facility]* Diagnosis Coronary artery disease, unspecified vessel or lesion type, unspecified whether angina present, unspecified whether [place] or transplanted heart- Primary Angina pectoris (HCC) Other and unspecified angina pectoris [facility]* Diagnosis Coronary artery disease involving [place] coronary artery of [place] heart without angina pectoris- Primary Chest pain, unspecified type Primary hypertension Unspecified essential hypertension Coronary artery disease of [place] artery of [place] heart with stable angina pectoris (HCC) [facility]* Diagnosis Malignant neoplasm of ascending colon (HCC) Malignant neoplasm of ascending colon [facility] encounter [facility]* Diagnosis Menopause Symptomatic menopausal or female climacteric states Osteopenia of multiple sites [facility]* Diagnosis Coronary artery disease, unspecified vessel or lesion type, unspecified whether angina present, unspecified whether [place] or transplanted heart- Primary Angina pectoris (HCC) Other and unspecified angina pectoris documented [facility] this encounter [facility]* Diagnosis Coronary artery disease involving [place] coronary artery of [place] heart without angina pectoris documented in this encounter [facility] for referral (narrative)* Consultation (Routine) - Pending Review Specialty Diagnoses / Procedures Referred By Contac t Referred To Contact Cardiology Diagnoses Angina pectoris, unstable (CMS/HCC) (HCC) Procedures [place] OFFICE/OUTPATIENT NEW HIGH MDM 60-74 MINUTES Talisha Cardozo APRN - CNP 95 [facility] [address] [place] [address] Referral ID Status Reason Start Date Expiration Date Visits Requested Visits Authorized [id number] Pending Review Specialty Services Required 06/12/2023 06/11/2024 1 1 [facility] for referral (narrative)* Consultation (Routine) - Pending Review Specialty Diagnoses / Procedures Referred By Contac t Referred To Contact Cardiology Diagnoses Coronary artery disease, unspecified vessel or lesion type, unspecified whether angina present, unspecified whether [place] or transplanted heart Procedures [place] OFFICE/OUTPATIENT NEW HIGH MDM 60-74 MINUTES Kathleen Santos MD [address] [address] Referral ID Status Reason Start Date Expiration Date Visits Requested Visits Authorized [id number] Pending Review Specialty Services Required 07/11/2023 07/10/2024 1 1 [facility] Consultation (Routine) - Pending Review Specialty Diagnoses / Procedures Referred By Contac t Referred To Contact Cardiology Diagnoses Coronary artery disease, unspecified vessel or lesion type, unspecified whether angina present, unspecified whether [place] or transplanted heart Angina pectoris (HCC) Procedures [place] OFFICE/OUTPATIENT NEW HIGH MDM 60-74 MINUTES Kathleen Santos MD [address] [address] Referral ID Status Reason Start Date Expiration Date Visits Requested Visits Authorized [id number] Pending Review Specialty Services Required 07/15/2023 07/14/2024 1 1 * Consultation (Routine) - Pending Review Specialty Diagnoses / Procedures Referred By Contac t Referred To Contact Cardiology Diagnoses Coronary artery disease, unspecified vessel or lesion type, unspecified whether angina present, unspecified whether [place] or transplanted heart Procedures [place] OFFICE/OUTPATIENT NEW HIGH MDM 60-74 MINUTES Kathleen Santos MD [address] [address] Referral ID Status Reason Start Date Expiration Date Visits Requested Visits Authorized [id number] Pending Review Specialty Services Required 07/11/2023 07/10/2024 1 1 [facility] ([facility] Consultation (Routine) - Pending Review Specialty Diagnoses / Procedures Referred By Contac t Referred To Contact Cardiology Diagnoses Angina pectoris (HCC) Coronary artery disease involving [place] coronary artery of [place] heart without angina pectoris Procedures [place] OFFICE/OUTPATIENT NEW HIGH MDM 60-74 MINUTES Bertha Patricio PA-C [address] [place] [address] Referral ID Status Reason Start Date Expiration Date Visits Requested Visits Authorized [id number] Pending Review Specialty Services Required 08/18/2023 08/17/2024 1 1 [facility] Summary Purpose Family History No Family [...] & PELVIS W/CONTRAST Eliecer Vasquez MD [address] [place] [address] Ct Imaging Referral ID Status Reason Start Date Expiration Date Visits Requested Visits Authorized [id number] Additional Clinical Info Needed Auto-Generat ed Referral 04/04/2023 05/03/2024 1 1 Specialty Diagnoses / Procedures Referred By Contac t Referred To Contact Radiology Diagnoses Menopause Osteopenia of multiple sites Procedures BD BONE DENSITY SURVEY Vero Wu MD [address] [place] [address] [facility] BONE DENSITY [address] [place] [address] Referral ID Status Reason Start Date Expiration Date V isits Requested Visits Authorized [id number] Authorized 06/09/2023 06/08/2024 1 1 Specialty Diagnoses / Procedures Referred By Contac t Referred To Contact Radiology Diagnoses Rheumatoid arthritis involving multiple sites, unspecified whether rheumatoid factor present (HCC) Procedures XR FOOT RIGHT 3 VIEWS eVro Wu MD [address] [place] [id number] [facility] DIAGNOSTIC RADIOLOGY [address] [place] [address] [place] [address] Referral ID Status Reason Start Date Expiration Date Visits Re quested Visits Authorized [id number] Closed 06/09/2023 06/08/2024 1 1 Specialty Diagnoses / Procedures Referred By Contac t Referred To Contact Radiology Diagnoses Rheumatoid arthritis involving multiple sites, unspecified whether rheumatoid factor present (HCC) Procedures XR FOOT LEFT 3 VIEWS Vero Wu MD [address] [place] [address] [facility] [address] [place] [address] [place] [address] Referral ID Status Reason Start Date Expiration Date Visits Re quested Visits Authorized [id number] Closed 06/09/2023 06/08/2024 1 1 Specialty Diagnoses / Procedures Referred By Contac t Referred To Contact Radiology Diagnoses Rheumatoid arthritis involving multiple sites, unspecified whether rheumatoid factor present (HCC) Procedures XR ARTHRITIS SURVEY HAND/WRIST Vero Wu MD [address] [place] [address] [facility] [address] [place] [address] [place] [address] Referral ID Status Reason Start Date Expiration Date Visits Re quested Visits Authorized [id number] Closed 06/09/2023 06/08/2024 1 1 Specialty Diagnoses / Procedures Referred By Contac t Referred To Contact CT IMAGING Diagnoses Malignant neoplasm of ascending colon (HCC) Procedures CT ABD/PEL WO IVCON CT ABD & PELVIS W/O CONTRAST Eliecer Vasquez MD [facility] [place] [address] Ct Imaging [place] [address] Referral ID Status Reason Start Date Expiration Date V isits Requested Visits Authorized [id number] Closed Auto-Generate d Referral 04/17/2023 06/16/2023 2 2 Specialty Diagnoses / Procedures Referred By Contac t Referred To Contact CT IMAGING Diagnoses Malignant neoplasm of ascending colon (HCC) Procedures CT CHEST WO IVCON DIAGNOSTIC COMPUTED TOMOGRAPHY THORAX W/O CNTRST Eliecer Vasquez MD [facility] [address] [place] [address] Referral ID Status Reason Start Date Expiration Date V isits Requested Visits Authorized [id number] Closed Auto-Generate d Referral 04/17/2023 06/16/2023 1 1 Referral ID Status Reason Start Date Expiration Date Visits Re quested Visits Authorized [id number] Closed 06/09/2023 06/08/2024 1 1 Additional Source Comments Source Comments (unrecognize d section and content) In the event this informatio n is protected by the Federal Confidentiality of Alcohol and Drug Abuse Patient Records regulations: The Federal rules restrict any use of the information to criminally investigate or prosecute any alcohol or drug abuse patient.[facility] Hospital[facility] the event this information is protected by the Federal Confidentiality of Alcohol and Drug Abuse Patient Records regulations: The Federal rules restrict any use of the information to criminally investigate or prosecute any alcohol or drug abuse patient.[facility] HospitalIn the event this information is protected by the Federal Confidentiality of Alcohol and Drug Abuse Patient Records regulations: The Federal rules restrict any use of the information to criminally investigate or prosecute any alcohol or drug abuse patient.[facility] HospitalIn the event this information is protected by the Federal Confidentiality of Alcohol and Drug Abuse Patient Records regulations: The Federal rules restrict any use of the information to criminally investigate or prosecute any alcohol or drug abuse patient.[facility] HospitalIn the event this information is protected by the Federal Confidentiality of Alcohol and Drug Abuse Patient Records regulations: The Federal rules restrict any use of the information to criminally investigate or prosecute any alcohol or drug abuse patient.[facility] HospitalIn the event this information is protected by the Federal Confidentiality of Alcohol and Drug Abuse Patient Records regulations: The Federal rules restrict any use of the information to criminally investigate or prosecute any alcohol or drug abuse patient.[facility] HospitalIn the event this information is protected by the Federal Confidentiality of Alcohol and Drug Abuse Patient Records regulations: The Federal rules restrict any use of the information to criminally investigate or prosecute any alcohol or drug abuse patient.[facility] HospitalIn the event this information is protected by the Federal Confidentiality of Alcohol and Drug Abuse Patient Records regulations: The Federal rules restrict any use of the information to criminally investigate or prosecute any alcohol or drug abuse patient.[facility] HospitalIn the event this information is protected by the Federal Confidentiality of Alcohol and Drug Abuse Patient Records regulations: The Federal rules restrict any use of the information to criminally investigate or prosecute any alcohol or drug abuse patient.[facility] INFORMATION SOURCE (unrecogn ized section and content) DATE CREATED AUTHOR AUTHOR'S ORGANIZ ATION 04/19/2022 [facility] DATE CREATED AUTHOR AUTHOR'S ORGANIZ ATION 09/06/2023 [facility] [employer] DATE CREATED AUTHOR AUTHOR'S ORGANIZ ATION 10/26/2023 [facility] DATE CREATED AUTHOR AUTHOR'S ORGANIZ ATION 10/30/2023 [facility] Reason for Visit (unrecogniz ed section and content) Reason Comments Established Patient Reason Comments Follow-up Reason Comments Follow Up Reason Comments Patient Question Specialty Diagnoses / Procedures Referred By Contac t Referred To Contact Diagnoses Chest pain Chest discomfort Chest pain [R07.9] Procedures Left heart cath / coronary angiography Kathleen Santos MD [address] [place] [address] [address] Referral ID Status Reason Start Date Expiration Date Visits Re quested Visits Authorized [id number] 1 1 Reason Comments New patient, to establish relationship Specialty Diagnoses / Procedures Referred By Contac t Referred To Contact Radiology Diagnoses Rheumatoid arthritis involving multiple sites, unspecified whether rheumatoid factor present (HCC) Procedures XR FOOT RIGHT 3 VIEWS Vero Wu MD [address] [place] [address] [facility] DI[facility] RADIOLOGY [address] [place] [address] Referral ID Status Reason Start Date Expiration Date Visits Re quested Visits Authorized [id number] Closed 06/09/2023 06/08/2024 1 1 Reason Comments [...] PELVIS W/O CONTRAST Eliecer Vasquez MD [address] [place] [address] [place] [address] Referral ID Status Reason Start Date Expiration Date V isits Requested Visits Authorized [id number] Closed Auto-Generate d Referral 04/17/2023 06/16/2023 2 2 Specialty Diagnoses / Procedures Referred By Contac t Referred To Contact Radiology Diagnoses Menopause Osteopenia of multiple sites Procedures BD BONE DENSITY SURVEY Vero Wu MD [address] [place] [address] [facility] BONE DENSITY [address] [place] [address] Referral ID Status Reason Start Date Expiration Date Visits Re quested Visits Authorized [id number] Closed 06/09/2023 06/08/2024 1 1 Reason Comments Discuss results test/procedures Reason Comments 6 Month Follow-up Care Teams (unrecognized sec tion and content) Accuracy Expert Relationship Specialty [place] [address] [place] [address] PCP - General Internal Medicine 12/18/22 Susan Alvares MD [address] [place] [address] Oncology 12/18/22 Accuracy Expert Relationship Specialty Start Date End Date Cristel Valenzuela [address] [place] [address] [place] [phone] PCP - General Internal Medicine 02/24/23 Accuracy Expert Relationship Specialty Start Date End Date Cristel Valenzuela MD [address] [place] [address] PCP - General Internal Medicine 12/18/22 Susan Alvares MD [address] [place] [address] Oncology 12/18/22 Accuracy Expert Relationship Specialty Start Date End Date Cristel Valenzuela MD [address] [place] [address] PCP - General Internal Medicine 12/18/22 Susan Alvares MD [address] [place] [address] Oncology 12/18/22 Accuracy Expert Relationship Specialty Start Date End Date Cristel Valenzuela MD [address] [place] [address] PCP - General Internal Medicine 12/18/22 Susan Alvares MD [address] [place] [address] Oncology 12/18/22 Accuracy Expert Relationship Specialty Start Date End Date Cristel Valenzuela [address] [place] [phone] PCP - General Internal Medicine 02/24/23 Accuracy Expert Relationship Specialty Start Date End Date Cristel Valenzuela [address] [place] [address] [place] [phone] PCP - General Internal Medicine 02/24/23 Accuracy Expert Relationship Specialty Start Date End Date Cristel Valenzuela [address] [place] [address] [place] [phone] PCP - General Internal Medicine 02/24/23 Cristel Valenzuela [address] [place] [address] 02/24/23 Accuracy Expert Relationship Specialty Start Date End Date Cristel Valenzuela [address] [place] [address] [place] [phone] PCP - General Internal Medicine 02/24/23 Cristel Valenzuela [address] [place] [address] 02/24/23 Accuracy Expert Relationship Specialty Start Date End Date Vero Wu MD [address] [place] [address] Physician Rheumatology 06/14/23 Accuracy Expert Relationship Specialty Start Date End Date Cristel Valenzuela MD [address] [place], [place] [address] PCP - General Internal Medicine 12/18/22 Susan Alvares MD [address] [place], [place] [address] Oncology 12/18/22 Accuracy Expert Relationship Specialty Start Date End Date Cristel Valenzuela [address] [address] [place] [address] PCP - General Internal Medicine 02/24/23 Cristel Valenzuela [address] [place] [address] 02/24/23 Accuracy Expert Relationship Specialty Start Date End Date Vero Wu MD [address] [place] [address] Physician Rheumatology 06/14/23 Accuracy Expert Relationship Specialty Start Date End Date Cristel Valenzuela [address] [place] [phone] PCP - General Internal Medicine 02/24/23 Cristel Valenzuela [address] [place] [address] 02/24/23 Accuracy Expert Relationship Specialty Start Date End Date Cristel Valenzuela [address] [place] [phone] PCP - General Internal Medicine 02/24/23 Cristel Valenzuela [address] [place] [address] 02/24/23 Accuracy Expert Relationship Specialty Start Date End Date Cristel Valenzuela [address] [place] [address] PCP - General Internal Medicine 02/24/23 Cristel Valenzuela [address] [place] [address] 02/24/23 Accuracy Expert Relationship Specialty Start Date End Date Cristel Valenzuela [address] [place] [address] PCP - General Internal Medicine 02/24/23 Cristel Valenzuela [address] [place] [address] 02/24/23 Accuracy Expert Relationship Specialty Start Date End Date Vero Wu MD [address] [place] [address] Physician Rheumatology 06/14/23 Accuracy Expert Relationship Specialty Start Date End Date Cristel Valenzulea [address] [place] [phone] PCP - General Internal Medicine 02/24/23 Cristel Valenzuela [address] [place] [address] 02/24/23 Accuracy Expert Relationship Specialty Start Date End Date Cristel Valenzuela [address] [place] [phone] PCP - General Internal Medicine 02/24/23 Cristel Valenzuela [address] [place] [address] 02/24/23 Accuracy Expert Relationship Specialty Start Date End Date Cristel Valenzuela [address] [place] [address] PCP - General Internal Medicine 02/24/23 Cristel Valenzuela [address] [place] [address] 02/24/23 Accuracy Expert Relationship Specialty Start Date End Date Cristel Valenzuela [address] [place] [phone] PCP - General Internal Medicine 02/24/23 Cristel Valenzuela [address] [place] [address] 02/24/23 Accuracy Expert Relationship Specialty Start Date End Date Cristel Valenzuela MD [address] [place], [place] [address] PCP - General Internal Medicine 12/18/22 Susan Alvares MD [address] [place], [place] [id number] Oncology 12/18/22 07/01/23 Accuracy Expert Relationship Specialty Start Date End Date Vero Wu MD [address] [place] [address] Physician Rheumatology 06/14/23 Accuracy Expert Relationship Specialty Start Date End Date Cristel Valenzuela [address] [facility] [address] [place] [phone] PCP - General Internal Medicine 02/24/23 Cristel Valenzuela [address] [place] [address] 02/24/23 Accuracy Expert Relationship Specialty Start Date End Date Vero Wu MD [address] [place] [address] Physician Rheumatology 06/14/23 Accuracy Expert Relationship Specialty Start Date End Date Cristel Valenzuela [address] [facility] [address] [place] [phone] PCP - General Internal Medicine 02/24/23 Cristel Valenzuela [address] [place] [address] 02/24/23 Accuracy Expert Relationship Specialty Start Date End Date Vero Wu MD [address] [place] [address] Physician Rheumatology 06/14/23 Accuracy Expert Relationship Specialty Start Date End Date Cristel Valenzuela [address] [facility] [address] [place] [address] PCP - General Internal Medicine 02/24/23 Cristel Valenzuela [address] [place] [address] 02/24/23 Scheduled Active and Recently Administ ered Medications [...] After every IV line use, Starting on Romelia 06/05/23 at 1344, For Line Patency: Peripheral IV [...] (38 C), Starting on Romelia 06/05/23 at 1344
Maximum dose of acetaminophen is 4000 mg from all sources in 24 hours.
Or acetaminophen (Tylenol) suppository 650 mgJump to med 650 mg, Rectal, Every 6 hours PRN, mild pain (1-3), fever, For temp greater than 100.4 F (38 C), Starting on Romelia 06/05/23 at 1344
Administer if oral route cannot be used. Maximum dose of acetaminophen is 4000 mg from all sources in 24 hours.
Group 2: ondansetron ODT (Zofran-ODT) disintegrating tablet 4 mgJump to med 4 mg, Oral, Every 8 hours PRN, nausea, vomiting, Starting on Romelia 06/05/23 at 1344
1st Line. If inadequate response [...] BE BASED ON THE PRIMARY CLINICAL RECORDS. [facility]. provides no warranty or guarantee of the accuracy or completeness of information in this document.
[2023-12-12 12:57] VITALS: BP 129/56; PULSE 57; RESP 16; TEMP 36.9; O2SAT 100
[2023-12-12] MEDS: Lidocaine Jelly 2% 20 ML Syringe (URO-JET) 1 APPLIC (13:11)
== END 2023-12-12 13:40 | disposition home or self-care (01) ==
LOC: EN 12:13
PROVIDERS: PCP Internal Medicine; Referring Provider Internal Medicine; Visit Provider Internal Medicine Gastroenterology
PROC: F00ZJWZ Instrumental Swallowing and Oral Function Assessment using Swallowing Equipment (ICD-10-PCS; CPT 43235; principal; 2023-12-12 12:55)
DX: R07.9 Chest pain, unspecified (principal)
CPT/HCPCS: 91010

== ENCOUNTER 2023-12-17 05:51 | Day surgery (SDC) | payer MEDICAID, SELFPAY ==
[2023-11-24 08:48] VITALS: BMI 28.5
--- NOTE | 2023-12-16 07:00 | EGD_PTH ---
PATHOLOGY RESULTS PATIENT: ESTELLA SU LOC: EN U#:[id number] AGE/SX: 63/F ROOM: RE12/17/[address]: Dr. Shaun Suarez DO : 1960 BED: DIS: 12/17/2023 SPEC #: [id number] RECD: 12/17/23 12:10 STATUS: JAYSHREE MERRILL #: [id number] LANRE: 12/16/23 07:[address]: Shaun Suarez DEPT: SURGICAL PATHOLOGY RECD BY: Carmela Goff ENTERED: 12/17/23 12:11 SP TYPE: EGD BIOPSY LAURA DR: Dr. Kimi López MD Tissues: Gastric mucous membrane Esophageal mucous membrane Procedures: Special Stain Group II Surgery Specimen Level IV Alcian Blue/PAS (control) HEADER OPERATION: EGD, biopsy PRE-OP DIAGNOSIS: Esophageal dysmotility disorder, atypical GERD TISSUE SUBMITTED: A - Gastric body biopsy, B - Random esophagus biopsy MICROSCOPIC DIAGNOSIS A. Gastric body, biopsy: Chronic gastritis. See comment. B. Esophagus, biopsy: Gastroesophageal junctional biopsy with mild chronic inflammation. No evidence of goblet cell metaplasia. See comment. AM:vicente 12/18/2023 COMMENT A. The results of immunohistochemistry for Helicobacter pylori will be reported separately ([id number]). B. Alcian blue/PAS stain with matched control supports the above diagnosis. MICROSCOPIC DESCRIPTION Slides are reviewed. GROSS DESCRIPTION A - Received in fixative is one container labeled with the patient's name and designated gastric body biopsy. The specimen consists of multiple irregular fragments of light emery soft tissue that in aggregate measure 1.0 x 0.4 x 0.1 cm. The specimen is totally submitted in one cassette. B - Received in fixative is one container labeled with the patient's name and designated distal esophagus biopsy. The specimen consists of multiple irregular fragments of light emery soft tissue that in aggregate measure 0.6 x 0.3 x 0.1 cm. The specimen is totally submitted in one cassette. / SJ:vicente 12/17/2023 TC:3 CPT: 18149 x2, 40768
--- OUTSIDE RECORDS SUMMARY | 2023-12-17 05:57 | XMS RPT_ITS | CCD ---
Author Name Unknown Address [address] [facility] [address] [place] [address] Organization [facility] Care Team Providers Care Analytical Laboratory Technician Name Role Phone Unavailable Primary Care Provider [...] oxyCODONE; Translations: [OXYCODONE-ACETAMINOP HEN] Drug Allergy Itching [facility] (9 sources) Adhesive agent; Translations: [ADHESIVE] Drug Allergy Rash [facility] (10 sources) hydroCHLOROthiazide; Translations: [HYDROCHLOROTHIAZIDE] Drug Allergy Unknown [facility] (20 sources) HYDROcodone; Translations: [HYDROCODONE] Drug Allergy Itching [facility] (9 sources) Iodine; Translations: [IODINE] Drug Allergy Rash, Shortness of Breath [facility] (20 sources) Iron; Translations: [IRON] Drug Allergy Diarrhea [facility] (20 sources) levoFLOXacin; Translations: [LEVOFLOXACIN] Drug Allergy Shortness of Breath, Anaphylactic Shock, Difficulty Breathing [facility] (10 sources) liraglutide; Translations: [LIRAGLUTIDE] Drug Allergy GI Upset, Vomiting [facility] (20 sources) Sulfonamides (Antibiotic); Translations: [SULFA (SULFONAMIDE ANTIBIOTICS)] Drug Allergy Rash [facility] (9 sources) Methylprednisone; Translations: [METHYLPREDNISONE] Drug Allergy Mental Status Change [facility] (20 sources) hydroCHLOROthiazide Drug Allergy Other [facility] (20 sources) liraglutide Drug Allergy 08-02-2 022 Vomiting [facility] (20 sources) methylPREDNISolone; Translations: [METHYLPREDNISOLONE] Drug Allergy Anaphylactic Shock [facility] (20 sources) Iodides; Translations: [IODIDES] Drug Intolerance Anaphylactic Shock, Rash, Difficulty Breathing [facility] (1 source) Other Propensity to adverse reactions [facility] (13 sources) Acetaminophen / oxyCODONE; Translations: [PERCOCET] Drug Allergy Other [facility] (13 sources) Bandage Tape; Translations: [BANDAGE TAPE] Propensity to adverse reactions Itching, Rash [facility] (13 sources) Iodinated Contrast Media; Translations: [IODINATED CONTRAST MEDIA] Propensity to adverse reactions to drug Anaphylactic Shock [facility] (1 source) Sulfonamides (Antibiotic); Translations: [SULFA ANTIBIOTICS] Propensity to adverse reactions to drug (disorder) [facility] Repository Medications Current Medications Medication [...] Coronary arteriosclerosis; Translations: [Atherosclerotic heart disease of curyung coronary artery without angina pectoris] Onset: 3 [...] 3 06-09-2023 Chronic Other [facility] (1 source) halfway systemic steroid user; Translations: [oysterman (current) use of systemic steroids] 09-05-2023 Episodic [...] 172.7 cm Kathleen Santos MD Work Phone: [employer] 09-17-2023 13:21-0500 Body mass index (BMI) [Ratio] 28.34 kg/m2 Kathleen Santos MD Work Phone: [employer] 09-17-2023 13:21-0500 Body weight 84.55 kg Kathleen Santos MD Work Phone: [employer] 09-17-2023 13:21-0500 Diastolic blood pressure 60 mm[Hg] Kathleen Santos MD Work Phone: [employer] 09-17-2023 13:21-0500 Heart rate 65 /min Kathleen Santos MD Work Phone: [facility] [employer] 09-17-2023 13:21-0500 Respiratory rate 16 /min Kathleen Santos MD Work Phone: [facility] [employer] 09-17-2023 13:21-0500 SaO2% (BldA) [Mass fraction] 97 % Kathleen Santos MD Work Phone: [facility] [employer] 09-17-2023 13:21-0500 Systolic blood pressure 120 mm[Hg] Kathleen Santos MD Work Phone: [facility] [employer] 09-05-2023 10:18-0500 Body temperature 97.3 [degF] [facility] Wu [facility] 09-05-2023 10:18-0500 Body weight 85.28 kg Vero Wu MD [facility] 09-05-2023 10:18-0500 Diastolic blood pressure 59 mm[Hg] [facility] 09-05-2023 10:18-0500 Heart rate 55 /min [facility] 09-05-2023 10:18-0500 Respiratory rate 16 /min [facility]ero Wu [facility] 09-05-2023 10:18-0500 Systolic blood pressure 136 mm[Hg] V[facility] 07-16-2023 13:22-0400 Body height 172.7 cm Bertha Nikita PA-C Work Phone: [employer] 07-16-2023 13:22-0400 Body mass index (BMI) [Ratio] 28.19 kg/m2 Bertha Nikita PA-C Work Phone: [employer] 07-16-2023 13:220400 Body weight 84.1 kg Bertha Nikita PA-C Work Phone: [facility] [employer] 07-16-2023 13:22-0400 Diastolic blood pressure 60 mm[Hg] Bertha Nikita PA-C Work Phone: [facility] [employer] 07-16-2023 13:22-0400 Heart rate 51 /min Bertha Nikita PA-C Work Phone: [facility] [employer] 07-16-2023 13:22-0400 Respiratory rate 16 /min Bertha Nikita PA-C Work Phone: [facility] [employer] 07-16-2023 13:22-0400 SaO2% (BldA) [Mass fraction] 99 % Bertha Nikita PA-C Work Phone: [facility] [employer] 07-16-2023 13:22-0400 Systolic blood pressure 110 mm[Hg] Bertha Nikita PA-C Work Phone: [facility] 06-30-2023 13:34-0400 Body temperature 97.39 [degF] Handy Bates MD Work Phone: [facility] 06-30-2023 13:34-0400 Body weight 83.92 kg Handy Bates MD Work Phone: [facility] 06-30-2023 13:34-0400 Diastolic blood pressure 64 mm[Hg] Handy Bates MD Work Phone: [facility] 06-30-2023 13:34-0400 Heart rate 54 /min Handy Bates MD Work Phone: [facility] 06-30-2023 13:34-0400 SaO2% (BldA) [Mass fraction] 97 % Handy Bates MD Work Phone: [facility] 06-30-2023 13:34-0400 Systolic blood pressure 125 mm[Hg] Handy Bates MD Work Phone: [facility] 06-25-2023 09:29-0400 Body height 172.7 cm Bertha Nikita PA-C Work Phone: [facility] [employer] 06-25-2023 09:29-0400 Body mass index (BMI) [Ratio] 28.01 kg/m2 Bertha Nikita PA-C Work Phone: [employer] 06-25-2023 09:29-0400 Body weight 83.55 kg Bertha Nikita PA-C Work Phone: [facility] [employer] 06-25-2023 09:29-0400 Diastolic blood pressure 70 mm[Hg] Bertha Nikita PA-C Work Phone: [facility] [employer] 06-25-2023 09:29-0400 Heart rate 56 /min Bertha Nikita PA-C Work Phone: [facility] [employer] 06-25-2023 09:29-0400 Respiratory rate 16 /min Bertha Nikita PA-C Work Phone: [facility] [employer] 06-25-2023 09:29-0400 SaO2% (BldA) [Mass fraction] 96 % Bertha Nikita PA-C Work Phone: [facility] [employer] 06-25-2023 09:29-0400 Systolic blood pressure 120 mm[Hg] Bertha Nikita PA-C Work Phone: [facility] [employer] 06-09-2023 12:58-0400 Body temperature 97.59 [degF] [facility] 06-09-2023 12:58-0400 Diastolic blood pressure 57 mm[Hg] Vero Wu MD Work Phone: [employer] 06-09-2023 12:58-0400 Heart rate 56 /min Vero Wu MD Work Phone: [employer] 06-09-2023 12:58-0400 Respiratory rate 20 /min Vero Wu MD Work Phone: [employer] 06-09-2023 12:58-0400 Systolic blood pressure 114 mm[Hg] [facility] MD [facility] 06-06-2023 10:07-0400 Body temperature 97.81 [degF] Kathleen Santos MD Work Phone: [facility] [employer] 06-06-2023 10:07-0400 Diastolic blood pressure 73 mm[Hg] Kathleen Santos MD Work Phone: [facility] [employer] 06-06-2023 10:07-0400 Heart rate 76 /min Kathleen Santos MD Work Phone: [facility] [employer] 06-06-2023 10:07-0400 Respiratory rate 18 /min Kathleen Santos MD Work Phone: [facility] [employer] 06-06-2023 10:07-0400 SaO2% (BldA) [Mass fraction] 95 % Kathleen Santos MD Work Phone: [facility] [employer] 06-06-2023 10:07-0400 Systolic blood pressure 156 mm[Hg] Kathleen Santos MD Work Phone: [facility] [employer] 06-05-2023 11:46-0400 Body height 172.7 cm Kathleen Santos MD Work Phone: [facility] [employer] 06-05-2023 11:46-0400 Body mass index (BMI) [Ratio] 27.76 kg/m2 Kathleen Santos MD Work Phone: [facility] [employer] 06-05-2023 11:46-0400 Body weight 82.83 kg Kathleen Santos MD Work Phone: [facility] [employer] 06-05-2023 11:46-0400 Diastolic blood pressure 68 mm[Hg] Kathleen Santos MD Work Phone: [facility] [employer] 06-05-2023 11:46-0400 Heart rate 54 /min Kathleen Santos MD Work Phone: [facility] [employer] 06-05-2023 11:46-0400 SaO2% (BldA) [Mass fraction] 99 % Kathleen Santos MD Work Phone: [facility] [employer] 06-05-2023 11:46-0400 Systolic blood pressure 128 mm[Hg] Kathleen Santos MD Work Phone: [facility] [employer] 04-04-2023 12:52-0400 Body temperature 97.81 [degF] Eliecer Vasquez MD Work Phone: [facility] 04-04-2023 12:52-0400 Body weight 83.23 kg Eliecer Vasquez MD Work Phone: [facility] 04-04-2023 12:52-0400 Diastolic blood pressure 70 mm[Hg] Eliecer Vasquez MD Work Phone: [facility] 04-04-2023 12:52-0400 Heart rate 64 /min Eliecer Vasquez MD Work Phone: [facility] 04-04-2023 12:52-0400 SaO2% (BldA) [Mass fraction] 95 % Eliecer Vasquez MD Work Phone: [facility] 04-04-2023 12:52-0400 Systolic blood pressure 140 mm[Hg] Eliecer Vasquez MD Work Phone: [facility] 02-24-2023 10:41-0400 Body height 172.7 cm Bertha Nikita PA-C Work Phone: [facility] 02-24-2023 10:41-0400 Body mass index (BMI) [Ratio] 27.67 kg/m2 Bertha Nikita PA-C Work Phone: [facility] 02-24-2023 10:41-0400 Body weight 82.56 kg Bertha Nikita PA-C Work Phone: [facility] 02-24-2023 10:41-0400 Diastolic blood pressure 60 mm[Hg] Bertha Nikita PA-C Work Phone: [facility] 02-24-2023 10:41-0400 Heart rate 56 /min Bertha Nikita PA-C Work Phone: [facility] [employer] 02-24-2023 10:41-0400 Respiratory rate 16 /min Bertha Nikita PA-C Work Phone: [facility] 02-24-2023 10:41-0400 SaO2% (BldA) [Mass fraction] 99 % Bertha Nikita PA-C Work Phone: [facility] 02-24-2023 10:41-0400 Systolic blood pressure 120 mm[Hg] Bertha Patricio PA-C Work Phone: [facility] 01-01-2023 14:32-0400 Body temperature 97.59 [degF] Susan Alvares MD Work Phone: [facility] 01-01-2023 14:32-0400 Body weight 83.69 kg Susan Alvares MD Work Phone: [facility] 01-01-2023 14:32-0400 Diastolic blood pressure 66 mm[Hg] Susan Alvares MD Work Phone: [facility] 01-01-2023 14:32-0400 Heart rate 63 /min Susan Alvares MD Work Phone: [facility] 01-01-2023 14:32-0400 Systolic blood pressure 140 mm[Hg] Susan Alvares MD Work Phone: [facility] 12-18-2022 12:58-0500 Body height 172.7 cm Susan Alvares MD Work Phone: [facility] 12-18-2022 12:58-0500 Body temperature 97.3 [degF] Susan Alvares MD Work Phone: [facility] 12-18-2022 12:58-0500 Body weight 81.42 kg Susan Alvares MD Work Phone: [facility] 12-18-2022 12:58-0500 Diastolic blood pressure 62 mm[Hg] Susan Alvares MD Work Phone: [facility] 12-18-2022 12:58-0500 Heart rate 84 /min Susan Alvares MD Work Phone: [facility] 12-18-2022 12:58-0500 Systolic blood pressure 126 mm[Hg] Susan Alvares MD Work Phone: [facility] Encounters Encounter Date Encounter Type Care Provider Facility Start: 12-08-2023 Telephone encounter Kathleen hernandez MD Work Phone: [facility] Start: 11-16-2023 Letter encounter Vero jimenez MD Work Phone: [facility] Start: 10-29-2023 End: 10-29-2023 ambulatory CRISTEL SANCHEZCHNER Facility:[facility] Start: 10-20-2023 End: 10-21-2023 ambulatory CRISTEL Rosado BIANCA Facility:[facility] Start: 09-17-2023 End: 09-17-2023 ambulatory KATHLEEN SANTOS [facility] Start: 09-17-2023 End: 09-17-2023 Office outpatient visit 25 minutes Kathleen Santos MD Work Phone: [facility] Procedures Date Procedure Procedure Detail Performing Clinician Start: 09-15-2023 Mammography Kathleen toney MD Work Phone: Start: 08-20-2023 Dxa bone density lucinda dy 1/> sites axial skel Vero Wu MD Work Phone: Start: 08-13-2023 Lipid 1996 panel - S delmi or Plasma Talisha Cardozo [employer] MACHINIST - DOPE WORKER Work Phone: Start: 07-16-2023 Ecg routine ecg w/le ast 12 lds w/i&r Kathleen Santos MD Work Phone: Start: 06-25-2023 Ecg routine ecg w/le ast 12 lds w/i&r Kathleen Santos MD Work Phone: Start: 06-09-2023 C-reactive protein Jenniefr Wu MD Work Phone: Start: 06-09-2023 Sedimentation rate r bc non-automated Vero Wu MD Work Phone: Start: 06-09-2023 End: 06-09-2023 Radex foot complete minimum 3 views Vero Wu MD Work Phone: Start: 06-06-2023 Cardiac catheterizat ion study Tyrel Miles MD Work Phone: Start: 06-06-2023 Lipid panel Talisha norman [employer] MACHINIST - D[employer] WORKER Work Phone: Start: 06-06-2023 Lipid 1996 panel - S delmi or Plasma Kathleen Santos MD Work Phone: Start: 06-06-2023 Ecg routine ecg w/le ast 12 lds trcg only w/o i&r Talisha Cardozo [employer] MACHINIST - DOPE WORKER Work Phone: Start: 06-05-2023 Assay of troponin quantitative Talisha Cardozo [employer]OTHER[employer] PUMP MACHINIST - DOPE WORKER Work Phone: Start: 06-05-2023 Assay of troponin quantitative Talisha Cardozo [employer]OTHER[employer] PUMP MACHINIST - DOPE WORKER Work Phone: Start: 06-05-2023 Comprehensive metabo lic panel Talisha Laguna Juliane [employer]OTHER[employer]AT PUMP MACHINIST - DOPE WORKER Work Phone: Start: 06-05-2023 Ecg routine ecg w/le ast 12 lds w/i&r aKthleen Santos MD Work Phone: Start: 04-24-2023 Ct [...] 12-06-2032 Screening for malignant neoplasm of colon [facility] Start: 06-06-2028 Cholesterol [Mass/volume] in Serum or [facility] Start: 06-06-2028 Lipid 1996 panel - Serum or Plasma Lipid Screening [facility] Start: 06-23-2026 Diabetes Screening Diabetes Screening [facility] Start: 03-31-2026 DIABETES SCREEN DIABETES SCREEN [facility] Start: 03-05-2025 DIABETES SCREEN DIABETES SCREEN [facility] Start: 09-22-2024 End: 09-22-2024 Patient encounter procedure [facility] Start: 09-15-2024 Screening for malignant neoplasm of breast Mammogram [facility] Start: 08-27-2024 Creatinine measurement Basic Metabolic Panel [facility] Start: 08-13-2024 Creatinine measurement Basic Metabolic Panel [facility] Start: 08-13-2024 Lipid panel [facility] Start: 06-06-2024 Lipid panel [facility] Start: 06-05-2024 Creatinine measurement Basic Metabolic Panel [facility] Start: 06-05-2024 Hemoglobin A1c measurement Diabetes: Hemoglobin A1C [facility] Start: 01-13-2024 Hemoglobin A1c measurement Hemoglobin A1C [facility] Start: 01-05-2024 End: 01-05-2024 Patient encounter procedure 01/05/2024 10:40 AM EDT Office Visit [facility] [address] [place] [address] Vero Wu MD [address] [place], [place] [id number] [facility] Start: 12-06-2023 Hemoglobin A1c measurement Hemoglobin A1C [facility] Start: 10-22-2023 End: 12-22-2023 Carcinoembryonic Ag [Mass/volume] in Serum or Plasma [facility] BLD Lab Routine Malignant neoplasm of ascending colon (HCC) Expected: 10/22/2023 (Approximate), Expires: 12/22/2023 [facility] Work Phone: Immunizations Immunization Date Immunization Notes Care Provider Fa cility 07-14-2023 Hemoglobin A1C Phe 1 [facility] 06-05-2023 Hemoglobin A1C Vero jimenez MD Work Phone: [facility] Payers Date Payer Category Payer Medicaid [id number] 2022 Medicaid [id number] 1960 Unknown [id number] 2.16. [id number] 1960 Unknown [id number] 2.16. [id number] 1960 Unknown [id number] 2.16. [id number] 1960 Unknown [id number] 2.16. [id number] 1960 Unknown [id number] 2.16. [id number] 1960 Unknown [id number] 2.. [id number] Social History Date Type Detail Facility Tobacco smoking stat [facility] Tobacco smoking consumption unknown [facility] Start: 1960 Sex Assigned At Not on file [facility] Start: 08-15-2022 End: 12-18-2022 Tobacco smoking status ILIS Ex-smoker [facility] End: 10-13-1992 History of tobacco use Current smoker [facility] End: 10-13-1992 History of tobacco use Cigarette Smoker [facility] Start: 12-18-2022 End: 06-05-2023 Cigarettes smoked current (pack per day) - Reported 1 [facility] Start: 12-18-2022 End: 09-05-2023 Tobacco use and exposure Smokeless tobacco non-user [facility] Start: 02-24-2023 End: 09-17-2023 Alcohol intake Lifetime non-drinker (finding) [facility] Start: 1960 Sex Assigned At Female [facility] Start: 06-05-2023 End: 09-17-2023 Humiliation, Afraid, Rape, and Kick questionnaire [HARK] [facility] Within the last year , have you been afraid of your partner or ex-partner? No [facility] How often to you hav e a drink containing alcohol? Never [facility] How many standard dr inks containing alcohol do you have on a typical day? Patient does not drink [facility] Start: 05-26-2023 End: 06-25-2023 Exposure to SARS-CoV-2 (event) Not sure [facility] Start: 06-23-2023 Gender identity Identifies as female gender (finding) [facility] Start: 02-24-2023 Sexual orientation Heterosexual (fin edu) [facility] Start: 09-05-2023 [facility] Clinical Notes 03-05-2022 to 12-10-2023 Telephone Encounter - Belle Del Cid - 12/10/2023 2:50 PM ESTTelephone Encounter - Belle Del Cid - 12/10/2023 2:50 PM ESTTelephone Encounter - Rik Harris RN - 12/08/2023 10:32 AM EST Note Date & Type Note Facility 12-10-2023 Telephone encounter Note Faxed clearance to [phone]. Original to scanning [facility] 12-10-2023 Miscellaneous Notes Faxed clearance to [phone]. Original to scanning Received clearance from [facility]. Patient is scheduled for colonoscopy/EGD with MAC sedation 12/17/23. documented in this encounter [facility] 12-08-2023 Telephone encounter Note Received clearance from [facility]. Patient is scheduled for colonoscopy/EGD with MAC sedation 12/17/23. [facility] 10-29-2023 Note HNO ID: [id number] Author: HANDY BATES MD Service: ? Author [...] She is on ac due to prior [place]. 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 [...] (FLONASE) 50 mcg/actuation nasal spray Use 1 Whitmer in each nostril once daily as needed. [...] All other rev (more content not included)... [facility] 09-17-2023 History of Presen t illness Narrative Images from the original note were not included. [facility] [address] [facility] [address] Dept: [phone] Dept Loc: [phone] DATE of SERVICE:09/17/23 TIME of SERVICE: 1:30 [...] Colon cancer (HCC) Coronary artery disease Hypertension [place] (myocardial infarction) (HCC) Past Surgical History Past Surgical History: Procedure Laterality Date CARDIAC CATHETERIZATION N/A 06/06/2023 Performed by Tyrel Miles MD at [facility] Cardiac Cath/EP Lab Family History Family History [...] mouth in the morning., Disp: , Rfl: [id number] ine 50-325-40 MG tablet, Take 1 tablet [...] we can do. documented in this encounter [facility] 09-05-2023 Instructions Vero Wu MD - 09/05/2023 [...] future fractures 50% documented in this encounter [facility] 09-05-2023 History of Presen t illness Narrative Rheumatology Note CC: RA and osteoporosis Recall: Lisbeth Craven is a 63 year old female w RA; CKD, osteopenia w high FRAX Was seeing Dr Fabien Wyman in [facility]; dx RA 2014; Pred 5mg and hcq. [...] small fiber (skin biopsy proven); cad s/p [place] (3 stents); DMII; gerd; osteopenia; s/p back [...] [facility] in this encounter [id number] Telephone encounter Note* Telephone Encounter - Rik Harris RN - 08/26/2023 3:40 PM EST PC to patient. I talked with . He would like her to focus on cardiac rehab at this time. If not making progress or having issues will consider external counterpulsation therapy. She starts cardiac rehab on Friday, she verbalized understanding. [id number] Miscellaneous Notes* Telephone Encounter - Rik Harris [...] - 08/15/2023 10:41 AM EDT Bronson at [facility] requested you call him re: getting this patient set up for rehab. # [phone] * Telephone Encounter - Alize Rosario MA - 08/14/2023 4:13 PM EDT Note faxed. * Telephone Encounter - Rik Harris RN - 08/14/2023 2:07 PM EDT Received faxed request from [facility] that they need supporting documentation and that the office note muist address stable angina in supporting documentation. I r/w RBC will have last OVwith Bertha CARBAJAL faxed. * Telephone Encounter - Alize Rosario MA - 08/13/2023 11:55 AM EDT The patient called stating [facility] has not received a referral from our office. I called the rehab # [phone] and they confirmed they have not received [...] - 07/11/2023 9:57 AM EDT Faxed to [facility] * Telephone Encounter - Kathleen [...] Cid You 1 minute ago (11:08 AM) [facility], needs cardiac rehab order signed by Physician not ERLIN, then will fax ov note, testing to [phone] * Telephone Encounter - Rik Harris RN - 06/25/2023 10:49 AM EDT Patient in office today to see Bertha. Requesting update on cardiac rehab order. Will have payroll secretary follow up on this. * Telephone Encounter - SON Alvarado CNP - 06/06/2023 4:50 PM EDT Please contact [facility] and ask what order is needed for cardiac rehab. Unable to locate an external cardiac rehab order in our system. documented in this [facility]11-06-2023 Telephone encounter Note* Telephone Encounter - Rik [...] give her a call. She verbalized understanding. [id number] Miscellaneous Notes* Telephone Encounter - Rik Harris [...] - 08/15/2023 10:41 AM EDT Bronson at [facility] requested you call him re: getting this patient set up for rehab. # [phone] * Telephone Encounter - Alize Rosario MA - 08/14/2023 4:13 PM EDT Note faxed. * Telephone Encounter - Rik Harris RN - 08/14/2023 2:07 PM EDT Received faxed request from [facility] that they need supporting documentation and that the office note muist address stable angina in supporting documentation. I r/w RBC will have last OVwith Bertha CARBAJAL faxed. * Telephone Encounter - Alize Rosario MA - 08/13/2023 11:55 AM EDT The patient called stating [facility] has not received a referral from our office. I called the rehab # [phone] and they confirmed they have not received [...] - 07/11/2023 9:57 AM EDT Faxed to [facility] * Telephone Encounter - Kathleen [...] Cid You 1 minute ago (11:08 AM) [facility], needs cardiac rehab order signed by Physician not RELIN, then will fax ov note, testing to [phone] * Telephone Encounter - Rik Harris RN - 06/25/2023 10:49 AM EDT Patient in office today to see Bertha. Requesting update on cardiac rehab order. Will have payroll secretary follow up on this. * Telephone Encounter - SON Alvraado CNP - 06/06/2023 4:50 PM EDT Please contact [facility] and ask what order is needed for cardiac rehab. Unable to locate an external cardiac rehab order in our system. documented in this [facility]11-06-2023 History of Present illness Narrative* Bertha Patricio PA-C - 08/18/2023 9:25 AM EST Order placed for cardiac rehab for angina pectoris [id number] Telephone encounter Note* Telephone Encounter - Rik [...] call her once faxed. She verbalized understanding. [id number] Miscellaneous Notes* Telephone Encounter - Rik Harris [...] - 08/15/2023 10:41 AM EDT Bronson at [facility] requested you call him re: getting this patient set up for rehab. # [phone] * Telephone Encounter - Alize Rosario MA - 08/14/2023 4:13 PM EDT Note faxed. * Telephone Encounter - Rik Harris RN - 08/14/2023 2:07 PM EDT Received faxed request from [facility] that they need supporting documentation and that the office note muist address stable angina in supporting documentation. I r/w RBC will have last OVwith Bertha CARBAJAL faxed. * Telephone Encounter - Alize Rosario MA - 08/13/2023 11:55 AM EDT The patient called stating [facility] has not received a referral from our office. I called the rehab # [phone] and they confirmed they have not received [...] Orders * Telephone Encounter - Belle Del iCd - 07/11/2023 9:57 AM EDT Faxed to [facility] * Telephone Encounter - Kathleen [...] You 1 minute ago (11:08 AM) [facility], needs cardiac rehab order signed by Physician not ERLIN, then will fax ov note, testing to [phone] * Telephone Encounter - Rik Harris RN - 06/25/2023 10:49 AM EDT Patient in office today to see Bertha. Requesting update on cardiac rehab order. Will have payroll secretary follow up on this. * Telephone Encounter - SON Alvarado CNP - 06/06/2023 4:50 PM EDT Please contact [facility] and ask what order is needed for cardiac rehab. Unable to locate an external cardiac rehab order in our system. documented in this encounterSOhioHealth Hardin Memorial HospitalOcjfne74-50-8138 Telephone encounter Note* Telephone Encounter - Alize Rosario MA - 08/15/2023 10:41 AM EDT Bronson at [facility] requested you call him re: getting this patient set up for rehab. # [phone] [id number] Telephone encounter Note* Telephone Encounter - Alize Rosario MA - 08/14/2023 4:13 PM EDT Note faxed. [id number] Miscellaneous Notes* Telephone Encounter - Alize Rosario MA - 08/14/2023 4:13 PM EDT Note faxed. * Telephone Encounter - Rik Harris RN - 08/14/2023 2:07 PM EDT Received faxed request from [facility] that they need supporting documentation and that the office note muist address stable angina in supporting documentation. I r/w RBC will have last OVwith Bertha CARBAJAL faxed. * Telephone Encounter - Alize Rosario MA - 08/13/2023 11:55 AM EDT The patient called stating [facility] has not received a referral from our office. I called the rehab # [phone] and they confirmed they have not received [...] - 07/11/2023 9:57 AM EDT Faxed to [facility] * Telephone Encounter - Kathleen [...] Cid You 1 minute ago (11:08 AM) [facility], needs cardiac rehab order signed by Physician not ERLIN, then will fax ov note, testing to [phone] * Telephone Encounter - Rik Harris RN - 06/25/2023 10:49 AM EDT Patient in office today to see Bertha. Requesting update on cardiac rehab order. Will have payroll secretary follow up on this. * Telephone Encounter - SON Alvarado CNP - 06/06/2023 4:50 PM EDT Please contact [facility] and ask what order is needed for cardiac rehab. Unable to locate an external cardiac rehab order in our system. documented in this [facility]11-02-2023 Telephone encounter Note* Telephone Encounter - Rik Harris RN - 08/14/2023 2:07 PM EDT Received faxed request from [facility] that they need supporting documentation and that the office note muist address stable angina in supporting documentation. I r/w RBC will have last OVwith Bertha CARBAJAL faxed. [id number] NoteThe patient called stating [facility] has not received a referral from our office. I called the rehab # [phone] and they confirmed they have not received the referral. I faxed the referral to the fax number their office gave me and informed the patient. , received confirmation fax received.[facility]11-01-2023 Telephone encounter Note* Telephone Encounter - Alize Rosario MA - 08/13/2023 11:55 AM EDT The patient called stating [facility] has not received a referral from our office. I called the rehab # [phone] and they confirmed they have not received the referral. I faxed the referral to the fax number their office gave me and informed the patient. , received confirmation fax received. [place] [id number] Miscellaneous Notes* Telephone Encounter - Alize Rosario MIKE - 08/13/2023 11:55 AM EDT The patient called stating [facility] has not received a referral from our office. I called the rehab # [phone] and they confirmed they have not received [...] - 07/11/2023 9:57 AM EDT Faxed to [facility] * Telephone Encounter - Kathleen [...] Cid You 1 minute ago (11:08 AM) [facility], needs cardiac rehab order signed by Physician not ERLIN, then will fax ov note, testing to [phone] * Telephone Encounter - Rik Harris RN - 06/25/2023 10:49 AM EDT Patient in office today to see Bertha. Requesting update on cardiac rehab order. Will have payroll secretary follow up on this. * Telephone Encounter - SON Alvarado CNP - 06/06/2023 4:50 PM EDT Please contact [facility] and ask what order is needed for cardiac rehab. Unable to locate an external cardiac rehab order in our system. documented in this [facility]11-01-2023 Telephone encounter Note* Telephone Encounter - Lisa Rojo - 08/13/2023 11:29 AM EDT External lab results from [facility] lab clinic added to media folder. [id number] Miscellaneous Notes* Telephone Encounter - Lisa Rojo - 08/13/2023 11:29 AM EDT External lab results from [facility] lab clinic added to media folder. documented in this [id number] History of Present illness Narrative* Bertha Patricio PA-C - 07/16/2023 1:30 PM EDT [facility] Note DATE of SERVICE:07/16/23 [...] also reissued orders for cardiac rehab at [facility]. Today she states she is happy to say that she has had less episodes of chest discomfort with the addition of long-acting nitrate. Her EKG also looks improved with a sinus bradycardia, heart rate of 51. Past Medical History: Past Medical History: Diagnosis Date Chronic kidney disease Colon cancer (HCC) Coronary artery disease Hypertension [place] (myocardial infarction) (HCC) Past Surgical History Past Surgical History: Procedure Laterality Date CARDIAC CATHETERIZATION N/A 06/06/2023 Performed by Tyrel Miles MD at [facility] Cardiac Cath/EP Lab Family History Family History [...] mouth in the morning., Disp: , Rfl: tuogkudvyu-wdhwhwpaqbfqs-iufhtfzj 50-325-40 MG tablet, Take 1 tablet by [...] She plans to start cardiac rehab at [facility] Hypertension. Blood pressure is controlled. She [...] that appointment as scheduled. documented in this [facility]10-04-2023 History of Present illness Narrative* Bertha Patricio PA-C - 07/16/2023 1:30 PM EDT [facility] Note DATE of SERVICE:08/18/23 [...] also reissued orders for cardiac rehab at [facility]. Today she states she is happy to say that she has had less episodes of chest discomfort with the addition of long-acting nitrate. Her EKG also looks improved with a sinus bradycardia, heart rate of 51. Past Medical History: Past Medical History: Diagnosis Date Chronic kidney disease Colon cancer (HCC) Coronary artery disease Hypertension [place] (myocardial infarction) (HCC) Past Surgical History Past Surgical History: Procedure Laterality Date CARDIAC CATHETERIZATION N/A 06/06/2023 Performed by Tyrel Miles MD at [facility] Cardiac Cath/EP Lab Family History Family History [...] mg by mouth daily., Disp: , Rfl: cuchhkshgx-zjhjcrmcmgcod-vvdfcizs 50-325-40 MG tablet, Take 1 tablet by [...] She plans to start cardiac rehab at [facility] Hypertension. Blood pressure is controlled. She [...] that appointment as scheduled. documented in this [facility]10-03-2023 NoteAddended by: KATHLEEN SANTOS on: 07/15/2023 10:44 AM Modules accepted: [facility]10-03-2023 Telephone encounter Note* Telephone Encounter - Belle Del Cid - 07/15/2023 10:58 AM EDT Faxed new order [id number] Miscellaneous Notes* Telephone Encounter - Belle Del [...] - 07/11/2023 9:57 AM EDT Faxed to [facility] * Telephone Encounter - Kathleen Santos MD - 07/11/2023 9:43 AM EDT I did this, thank you * Addendum Note - Kathleen Santos MD - 07/11/2023 9:43 AM EDTAddended by: KATHLEEN SANTOS on: 07/11/2023 09:43 AM Modules accepted: Orders * Telephone Encounter - Rik Harirs RN - 06/25/2023 11:09 AM EDT Images from the original note were not included. Belle Del Cid You 1 minute ago (11:08 AM) [facility], needs cardiac rehab order signed by Physician not ERLIN, then will fax ov note, testing to [phone] * Telephone Encounter - Rik Harris RN - 06/25/2023 10:49 AM EDT Patient in office today to see Bertha. Requesting update on cardiac rehab order. Will have payroll secretary follow up on this. * Telephone Encounter - SON Alvarado CNP - 06/06/2023 4:50 PM EDT Please contact [facility] and ask what order is needed for cardiac rehab. Unable to locate an external cardiac rehab order in our system. documented in this encounterSOhioHealth Hardin Memorial HospitalZiqwhs86-29-0430 Note* Addendum Note - Kathleen Santos MD - 07/15/2023 10:44 AM EDTAddended by: KATHLEEN SANTOS. on: 07/15/2023 10:44 AM Modules accepted: Orders [id number] Note* Addendum Note - Kathleen Santos MD - 07/15/2023 10:44 AM EDTAddended by: KATHLEEN SANTOS on: 07/15/2023 10:44 AM Modules accepted: Orders [place] [address]Pmvqzz04-11-3646 Note* Addendum Note - Kathleen Santos MD - 07/15/2023 10:44 AM EDTAddended by: KATHLEEN SANTOS on: 07/15/2023 10:44 AM Modules accepted: Orders [place] [address]Oqwkpi85-35-5646 Note* Addendum Note - Kathleen Santos MD - 07/15/2023 10:44 AM EDTAddended by: KATHLEEN SANTOS on: 07/15/2023 10:44 AM Modules accepted: Orders [place] [address]Iwaiev54-23-3720 Note* Addendum Note - Kathleen Santos MD - 07/15/2023 10:44 AM EDTAddended by: KATHLEEN SATNOS on: 07/15/2023 10:44 AM Modules accepted: Orders [place] [address]Tcgyhn26-90-8438 Note* Addendum Note - Kathleen Santos MD - 07/15/2023 10:44 AM EDTAddended by: KATHLEEN SANTOS on: 07/15/2023 10:44 AM Modules accepted: Orders [facility]healthCwdctu90-77-5924 Note* Addendum Note - Kathleen Santos MD - 07/15/2023 10:44 AM EDTAddended by: KATHLEEN SANTOS on: 07/15/2023 10:44 AM Modules accepted: Orders [place] [address]Crzrrp29-05-3772 Note* Addendum Note - Kathleen Santos MD - 07/15/2023 10:44 AM EDTAddended by: KATHLEEN SANTOS on: 07/15/2023 10:44 AM Modules accepted: Orders [place] [address]Vttfbg62-74-6544 Note* Addendum Note - Kathleen Santos MD - 07/15/2023 10:44 AM EDTAddended by: KATHLEEN SANTOS on: 07/15/2023 10:44 AM Modules accepted: Orders [place] [address]Osozqc71-77-4713 Note* Addendum Note - Kathleen Santos MD - 07/15/2023 10:44 AM EDTAddended by: KATHLEEN SANTOS on: 07/15/2023 10:44 AM Modules accepted: Orders [place] [address]Lkkxmd88-72-3897 Note* Addendum Note - Kathleen Santos MD - 07/15/2023 10:44 AM EDTAddended by: KATHLEEN SANTOS on: 07/15/2023 10:44 AM Modules accepted: Orders [place] [address]Pqcuoj53-37-1158 Note* Addendum Note - Kathleen Santos MD - 07/15/2023 10:44 AM EDTAddended by: KATHLEEN SANTOS on: 07/15/2023 10:44 AM Modules accepted: Orders [place] [address]Oesnnx52-63-2511 Note* Addendum Note - Kathleen Santos MD - 07/15/2023 10:44 AM EDTAddended by: KATHLEEN SANTOS on: 07/15/2023 10:44 AM Modules accepted: Orders [id number] Note* Addendum Note - Kathleen Santos MD - 07/15/2023 10:44 AM EDTAddended by: KATHLEEN SANTOS on: 07/15/2023 10:44 AM Modules accepted: Orders [facility]healthUfesvu00-43-0618 Telephone encounter Note* Telephone Encounter - Kathleen Santos MD - 07/15/2023 10:43 AM EDT Re-did referral [place] [address]Zoqnsu27-86-6709 NoteAddended by: RIK HARRIS on: 07/14/2023 04:01 PM Modules accepted: [facility]10-02-2023 Note* Addendum Note - Rik Harris RN - 07/14/2023 4:01 PM EDTAddended by: RIK HARRIS on: 07/14/2023 04:01 PM Modules accepted: Orders [facility]healthGpmusi74-93-5373 Note* Addendum Note - Rik Harris RN - 07/14/2023 4:01 PM EDTAddended by: RIK HARRIS on: 07/14/2023 04:01 PM Modules accepted: Orders [facility]healthAnjahp83-23-5879 Note* Addendum Note - Rik Harris RN - 07/14/2023 4:01 PM EDTAddended by: RIK HARRIS on: 07/14/2023 04:01 PM Modules accepted: Orders [place] [address]Eoyhgc90-59-8022 Note* Addendum Note - Rik Harris RN - 07/14/2023 4:01 PM EDTAddended by: RIK HARRIS on: 07/14/2023 04:01 PM Modules accepted: Orders [place] [address]Nbeomr31-91-5867 Note* Addendum Note - Rik Harris RN - 07/14/2023 4:01 PM EDTAddended by: RIK HARRIS on: 07/14/2023 04:01 PM Modules accepted: Orders [place] [address]Buunrx90-76-8440 Note* Addendum Note - Rik Harris RN - 07/14/2023 4:01 PM EDTAddended by: RIK HARRIS on: 07/14/2023 04:01 PM Modules accepted: Orders [place] [address]Wbplny29-71-1468 Note* Addendum Note - Rik Harris RN - 07/14/2023 4:01 PM EDTAddended by: RIK HARRIS on: 07/14/2023 04:01 PM Modules accepted: Orders [place] [address]Cemoqo38-61-7618 Note* Addendum Note - Rik Harris RN - 07/14/2023 4:01 PM EDTAddended by: RIK HARRIS on: 07/14/2023 04:01 PM Modules accepted: Orders [place] [address]Clnnyc43-14-5526 Note* Addendum Note - Rik Harris RN - 07/14/2023 4:01 PM EDTAddended by: RIK HARRIS on: 07/14/2023 04:01 PM Modules accepted: Orders [place] [address]Ndgdbt73-20-9675 Note* Addendum Note - Rik Harris RN - 07/14/2023 4:01 PM EDTAddended by: RIK HARRIS on: 07/14/2023 04:01 PM Modules accepted: Orders [place] [address]Vdtdgr60-67-9342 Note* Addendum Note - Rik Harris RN - 07/14/2023 4:01 PM EDTAddended by: RIK HARRIS on: 07/14/2023 04:01 PM Modules accepted: Orders [place] [address]Gjolot10-02-3836 Note* Addendum Note - Rik Harris RN - 07/14/2023 4:01 PM EDTAddended by: RIK HARRIS on: 07/14/2023 04:01 PM Modules accepted: Orders [place] [address]Nzhpxi65-87-9976 Note* Addendum Note - Rik Harris RN - 07/14/2023 4:01 PM EDTAddended by: RIK HARRIS on: 07/14/2023 04:01 PM Modules accepted: Orders [place] [address]Ufaqeq48-31-3149 Note* Addendum Note - Rik Harris RN - 07/14/2023 4:01 PM EDTAddended by: RIK HARRIS on: 07/14/2023 04:01 PM Modules accepted: Orders [place] [address]Xkubyc73-54-7945 Note* Addendum Note - Rik Harris RN - 07/14/2023 4:01 PM EDTAddended by: RIK HARRIS on: 07/14/2023 04:01 PM Modules accepted: Orders [place] [address]Pacqnn76-06-0699 Miscellaneous Notes* Addendum Note - Rik Harris RN - 07/14/2023 4:01 PM EDTAddended by: RIK HARRIS on: 07/14/2023 04:01 PM Modules accepted: Orders * Telephone Encounter - Belle Del Cid - 07/11/2023 9:57 AM EDT Faxed to [facility] * Telephone Encounter - Kathleen [...] Cid You 1 minute ago (11:08 AM) [facility], needs cardiac rehab order signed by Physician not ERLIN, then will fax ov note, testing to [phone] * Telephone Encounter - Rik Harris RN - 06/25/2023 10:49 AM EDT Patient in office today to see Bertha. Requesting update on cardiac rehab order. Will have payroll secretary follow up on this. * Telephone Encounter - SON Alvarado CNP - 06/06/2023 4:50 PM EDT Please contact [facility] and ask what order is needed for cardiac rehab. Unable to locate an external cardiac rehab order in our system. documented in this [facility]09-29-2023 NoteAddended by: KATHLEEN SANTOS on: 07/11/2023 09:43 AM Modules accepted: [facility]09-29-2023 Telephone encounter Note* Telephone Encounter - Belle Del Cid - 07/11/2023 9:57 AM EDT Faxed to [id number] Miscellaneous Notes* Telephone Encounter - Belle Del Cid - 07/11/2023 9:57 AM EDT Faxed to [facility] * Telephone Encounter - Kathleen [...] Cid You 1 minute ago (11:08 AM) [facility], needs cardiac rehab order signed by Physician not ERLIN, then will fax ov note, testing to [phone] * Telephone Encounter - Rik Harris RN - 06/25/2023 10:49 AM EDT Patient in office today to see Bertha. Requesting update on cardiac rehab order. Will have payroll secretary follow up on this. * Telephone Encounter - SON Alvarado CNP - 06/06/2023 4:50 PM EDT Please contact [facility] and ask what order is needed for cardiac rehab. Unable to locate an external cardiac rehab order in our system. documented in this encounterSOhioHealth Hardin Memorial HospitalMnefsp76-08-6177 Telephone encounter Note* Telephone Encounter - Kathleen Santos MD - 07/11/2023 9:43 AM EDT I did this, thank you [id number] Note* Addendum Note - Kathleen Santos MD - 07/11/2023 9:43 AM EDTAddended by: KATHLEEN SANTOS. on: 07/11/2023 09:43 AM Modules accepted: Orders [address]Qtstfz54-54-4001 Note* Addendum Note - Kathleen Santos MD - 07/11/2023 9:43 AM EDTAddended by: KATHLEEN SANTOS on: 07/11/2023 09:43 AM Modules accepted: Orders [address]Fhurks52-86-8982 Note* Addendum Note - Kathleen Santos MD - 07/11/2023 9:43 AM EDTAddended by: KATHLEEN SANTOS. on: 07/11/2023 09:43 AM Modules accepted: Orders [address]Azflni15-20-9136 Note* Addendum Note - Kathleen Santos MD - 07/11/2023 9:43 AM EDTAddended by: KATHLEEN SANTOS on: 07/11/2023 09:43 AM Modules accepted: Orders [address]Lqodqw42-88-4800 Note* Addendum Note - Kathleen Santos MD - 07/11/2023 9:43 AM EDTAddended by: KATHLEEN SANTOS on: 07/11/2023 09:43 AM Modules accepted: Orders [address]Lmlnht10-18-8338 Note* Addendum Note - Kathleen Santos MD - 07/11/2023 9:43 AM EDTAddended by: KATHLEEN SANTOS on: 07/11/2023 09:43 AM Modules accepted: Orders [address]Xvbwml82-99-3061 Note* Addendum Note - Kathleen Santos MD - 07/11/2023 9:43 AM EDTAddended by: KATHLEEN SANTOS on: 07/11/2023 09:43 AM Modules accepted: Orders [address]Yrhxcz99-36-9514 Note* Addendum Note - Kathleen Santos MD - 07/11/2023 9:43 AM EDTAddended by: KATHLEEN SANTOS on: 07/11/2023 09:43 AM Modules accepted: Orders [address]Gopfhj23-92-9190 Note* Addendum Note - Kathleen Santos MD - 07/11/2023 9:43 AM EDTAddended by: KATHLEEN SANTOS on: 07/11/2023 09:43 AM Modules accepted: Orders [address]Tyercx90-40-7333 Note* Addendum Note - Kathleen Santos MD - 07/11/2023 9:43 AM EDTAddended by: KATHLEEN SANTOS on: 07/11/2023 09:43 AM Modules accepted: Orders [address]Holeij37-06-2691 Note* Addendum Note - Kathleen Santos MD - 07/11/2023 9:43 AM EDTAddended by: KATHLEEN SANTOS on: 07/11/2023 09:43 AM Modules accepted: Orders [address]Kkprlc21-72-1675 Note* Addendum Note - Kathleen Santos MD - 07/11/2023 9:43 AM EDTAddended by: KATHLEEN SANTOS on: 07/11/2023 09:43 AM Modules accepted: Orders [address]Rhlyjt42-64-5707 Note* Addendum Note - Kathleen Santos MD - 07/11/2023 9:43 AM EDTAddended by: KATHLEEN SANTOS on: 07/11/2023 09:43 AM Modules accepted: Orders [address]Totpzq97-93-6985 Note* Addendum Note - Kathleen Santos MD - 07/11/2023 9:43 AM EDTAddended by: KATHLEEN SANTOS on: 07/11/2023 09:43 AM Modules accepted: Orders [address]Ratvnz28-32-1704 Note* Addendum Note - Kathleen Santos MD - 07/11/2023 9:43 AM EDTAddended by: KATHLEEN SANTOS on: 07/11/2023 09:43 AM Modules accepted: Orders [address]Rmarlp76-92-3702 Note* Addendum Note - Kathleen Santos MD - 07/11/2023 9:43 AM EDTAddended by: KATHLEEN SANTOS. on: 07/11/2023 09:43 AM Modules accepted: Orders [address]Tmpvmj69-45-7714 Note* Addendum Note - Kathleen Santos MD - 07/11/2023 9:43 AM EDTAddended by: KATHLEEN SANTOS. on: 07/11/2023 09:43 AM Modules accepted: Orders [address]Cpddmc21-94-2809 Note* Addendum Note - Kathleen Santos MD - 07/11/2023 9:43 AM EDTAddended by: KATHLEEN SANTOS. on: 07/11/2023 09:43 AM Modules accepted: Orders [place] [address]Githut33-46-6573 Note* Addendum Note - Kathleen Santos MD - 07/11/2023 9:43 AM EDTAddended by: KATHLEEN SANTOS. on: 07/11/2023 09:43 AM Modules accepted: Orders [facility]healthEfjhsd19-23-5516 Telephone encounter Note* Telephone Encounter - Vero Wu MD - 07/04/2023 8:26 AM EDT Offer her September 02 (Friday) at [place] at 1120am. This is NOT where she saw me before but sheis coming from [place] and this might be closer than [place]. If she prefers [place], I will see where I can overbook. [id number] Miscellaneous Notes* Telephone Encounter - Vero Wu MD - 07/04/2023 8:26 AM EDT Offer her September 02 (Friday) at [place] at 1120am. This is NOT where she saw me before but sheis coming from [place] and this might be closer than [place]. If she prefers [place], I will see where I can overbook. * Telephone Encounter - Fernanda Arroyo - 06/30/2023 3:19 PM EDT Patient returned clinic call. Informed of message per notes below. Patient verbalized understandingand voiced no further questions. Pt stated cant come at 745 because shes coming from [place], [place] she needs 11am or later. * [...] offer her 745am on August 25 at [place] if sheis willing * Telephone Encounter - Vero Wu MD - 06/30/2023 2:08 PM EDT Please let her know labs were ok. Not a lot of inflammation. Xrays showed one questionable erosion (rheumatoid damage) but overall were ok. Please offer her 745am on August 25 at [place] if sheis willing * Telephone Encounter - Vero Wu MD - 06/20/2023 9:09 AM EDT Please arrange for September 01 f2f in [place] (held template but no longer taking vacation). Thanks! documented in this [id number] NoteHNO ID: [id number] Author: Handy Bates MD Service: ? Author Type: Physician Type: Progress Notes Filed: 07/01/2023 2:00 PM Note Text: HISTORY OF PRESENT ILLNESS: Lisbeth Craven is a 63 year old female history colon cancer found on basis of bleeding. She is on ac due to prior [place]. 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 [...] (FLONASE) 50 mcg/actuation nasal spray Use 1 Whitmer in each nostril once daily as needed. [...] which included preparing to see the patient, sijf-qx-jkje patient care, completing clinical documentation, obtaining and/or reviewing sepa (more content not included)...[facility]09-18-2023 Telephone encounter Note* Telephone Encounter - Fernanda Arroyo - 06/30/2023 3:19 PM EDT Patient returned clinic call. Informed of message per notes below. Patient verbalized understandingand voiced no further questions. Pt stated cant come at 745 because shes coming from [place], [place] she needs 11am or later. [id number] Miscellaneous Notes* Telephone Encounter - Fernanda Arroyo - 06/30/2023 3:19 PM EDT Patient returned clinic call. Informed of message per notes below. Patient verbalized understandingand voiced no further questions. Pt stated cant come at 745 because shes coming from [place], [place] she needs 11am or later. * [...] offer her 745am on August 25 at [place] if sheis willing * Telephone Encounter - Vero Wu MD - 06/30/2023 2:08 PM EDT Please let her know labs were ok. Not a lot of inflammation. Xrays showed one questionable erosion (rheumatoid damage) but overall were ok. Please offer her 745am on August 25 at [place] if sheis willing * Telephone Encounter - Vero Wu MD - 06/20/2023 9:09 AM EDT Please arrange for September 01 f2f in [place] (held template but no longer taking vacation). Thanks! documented in this [id number] Telephone encounter Note* Telephone Encounter - Zulay [...] offer her 745am on August 25 at [place] if sheis willing [facility] Work Phone: 1(598) 129-388509-18-2023 Telephone encounter Note* Telephone Encounter - Vero Wu MD - 06/30/2023 2:08 PM EDT Please let her know labs were ok. Not a lot of inflammation. Xrays showed one questionable erosion (rheumatoid damage) but overall were ok. Please offer her 745am on August 25 at [place] if sheis willing [id number] History of Present illness Narrative* Handy Bates MD - 06/30/2023 1:43 PM EDT HISTORY OF PRESENT ILLNESS: Lisbeth Craven is a 63 year old female history colon cancer found onbasis of bleeding. She is on ac due to prior [place]. 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 [...] (FLONASE) 50 mcg/actuation nasal spray Use 1 Whitmer in each nostril once daily as needed. [...] which included preparing to see the patient, gzmq-zd-aiby patient care, completing clinical documentation, obtaining and/or reviewing separately obtained history, counseling and educating the patient/family/caregiver, ordering medications, daniele ts, or procedures, independently interpreting results (not separately reported), and communicating results to the patient/family/caregiver. Electronically Signed: Handy Bates MD June 30, 2023 1:43 PM documented in this encounterKeenan [facility] Telephone encounter Note * Telephone Encounter - Rik Harris RN - 06/25/2023 11:09 AM EDT Images from the original note were not included. Belle Del Cid You 1 minute ago (11:08 AM) [facility], needs cardiac rehab order signed by Physician not ERLIN, then will fax ov note, testing to [phone] [id number] Miscellaneous Notes* Telephone Encounter - Rik Harris RN - 06/25/2023 11:09 AM EDT Images from the original note were not included. Belle Del Cid You 1 minute ago (11:08 AM) [facility], needs cardiac rehab order signed by Physician not ERLIN, then will fax ov note, testing to [phone] * Telephone Encounter - Rik Harris RN - 06/25/2023 10:49 AM EDT Patient in office today to see Bertha. Requesting update on cardiac rehab order. Will have payroll secretary follow up on this. * Telephone Encounter - SON Alvarado CNP - 06/06/2023 4:50 PM EDT Please contact [place] [facility] and ask what order is needed for cardiac rehab. Unable to locate an external cardiac rehab order in our system. documented in this encounterSOhioHealth [facility]in [facility] HospitalOcwjyd23-02-3959 Telephone encounter Note* Telephone Encounter - Rik Harris RN - 06/25/2023 10:49 AM EDT Patient in office today to see Bertha. Requesting update on cardiac rehab order. Will have payroll secretary follow up on this. [id number] History of Present illness Narrative* Bertha Patricio PA-C - 06/25/2023 9:30 AM EDT [facility] Note DATE of SERVICE:06/25/23 [...] Colon cancer (HCC) Coronary artery disease Hypertension [place] (myocardial infarction) (CMS/HCC) ([facility]) Past Surgical History Past Surgical History: Procedure Laterality Date CARDIAC CATHETERIZATION N/A 06/06/2023 Performed by Tyrel Miles MD at [facility] Cardiac Cath/EP Lab Family History Family History [...] mouth in the morning., Disp: , Rfl: vgihlwemwy-ptgltrtnfhqjp-ihnytbph 50-325-40 MG tablet, Take 1 tablet by [...] any problems should arise. documented in this [facility]09-08-2023 Telephone encounter Note* Telephone Encounter - Vero Wu MD - 06/20/2023 9:09 AM EDT Please arrange for September [facility] in [place] (held template but no longer taking vacation). Thanks! [id number] Instructions* Patient Instructions* Vero Wu MD - 06/09/2023 1:48 PM EDT Stay on pred 5mg (old pills) this week: Start jun 13 (Friday) 1mg pill x 4 (all 4 at once) every morning for June and July and September: 3mg (3x 1mg pills) every day October-: 2mg every day Hopefully plan: December-January 1mg daily Then Stop in february documented in this [id number] History of Present illness Narrative* Vero Wu MD - 06/09/2023 12:59 PM EDT New Rheumatology Note CC: RA Referred by: Dr Cristel Valenzuela HPI: Lisbeth Craven is a 63 year old female here for evaluation of above complaint Was seeing Dr Fabien Wyman in [facility]; dx RA 2014; moved to [place] to be closed to family about 1 [...] small fiber (skin biopsy proven); cad s/p [place] (3 stents); DMII; gerd; osteopenia; s/p back [...] menopause; 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 Unable to locate an external cardiac rehab order in our system. [id number] NoteName: Lisbeth Craven Date of : 1960 [...] cardiac catheterization was March 02, 2022 at [facility] in [place]. According to that report her left main [...] They were accompanied b (more content not included)...[facility] 06-06-2023 Hospital Discharge instructions* Discharge Instructions* Talisha Cardozo APRN - DOPE WORKER - 06/06/2023 2:44 PM EDT Call your doctor with any medication questions or if you notice any side effects from your medications. If you are unable to fill your medications, please call your Solar Energy Engineer immediately. The office number is located with [...] be gone by tomorrow. documented in this [facility]08-25-2023 Hospital course Narrative* SON Alvarado CNP - [...] ca theterization was March 02, 2022 at [facility] in [place]. According to that report her left main [...] MG EC tablet b complex vitamins capsule zqqmunlfaw-rmddyakdkkzqo-hfmhlxkq 50-325-40 MG tablet cetirizine 5 MG tablet [...] Your Medications These medications were sent to [facility] [place], [place] - [address] [address] carvedilol 6.25 MG tablet rosuvastatin 20 MG tablet ICD Registry Information/AMI Registry Information NYHA Functional Classification: Class I Medical Therapy Aspirin: Yes DAYAN/ARB: yes Statin: Yes Beta Kleber: Yes P2Y12 Inhibitors : Yes Aldosterone inhibitor :N/a Cardiac rehab Discussed with patient -will refer to [place] [facility] BMI Classification: Overweight (BMI 25.0-29.9) DIET: A lowfat, low cholesterol diet was discussed with the patient. Discharge to Home Condition at Discharge: good Follow up with cardiology: Bertha Patricio Jun 25 9:30 am If any questions call [facility] office [phone] Total time spent for Discharge time greater than 31 minutes Electronically signed by Talisha Cardozo APRN-DOPE WORKER documented in this [facility]08-25-2023 Miscellaneous Notes* Pre- Sedation Documentation - Maddi [...] Limits Permission given to speak with patient payroll representative/caregiver as indicated: Confirmation of Payer with patient/family: Yes Payer Name: [place]: No Confirmation of Primary Care Physician: Confirmed [...] Prescription Coverage: Yes Pharmacy Used: [facility] in [place] Medication Management: Independent Transportation/Shopping: Independent Transportation Mode: [...] these barriers include n/a. documented in this [facility]08-25-2023 Note* Pre-Sedation Documentation - Mdadi Mitchell MD - 06/06/2023 1:20 PM EDT [...] administer sedation as planned. Maddi Mitchell MD [employer] Work Phone: [phone] Plan of care note* Care Plan - [...] to address these barriers include n/a. T [id number] History of Present illness Narrative* SON Alvarado CNP - 06/06/2023 9:32 AM EDT Discussed case with Dr Miles. Plan for allergy prep moving forward is: IV solu cortef 200mg IV one hour prior Benadryl and Pepcid as ordered previously one hour prior Will notify staff when timing of cath is known IV NS at 75 hr ordered for reduced GFR documented in this [facility]08-24-2023 NoteACH [facility] [address] [facility] [address] Dept: [phone] Please see my progress note that will [...] last cardiac catheterization which was done at [facility] in [place]. This was done a little over a [...] agree with the plan. I notified our furniture salesperson, Dr. Miles. Addendum June 17, 2023. In addition to the above, she has stage III chronic kidney disease, something we were following and taking into account with her cardiac catheterization.[facility] History and physical note* Kathleen Santos MD - 06/05/2023 8:47 PM EDT Images from the original note were not included. [facility] [address] [facility] [address] Dept: [phone] Please see my progress note that will [...] her last cardiac catheterization whichwas done at [facility] in [place]. This was done a little over a [...] agree with the plan. I notified our furniture salesperson, Dr. Miles. [id number] History and physical note* Kathleen Santos MD - 06/05/2023 8:47 PM EDT Images from the original note were not included. [address] [address] Dept: [phone] Please see my progress note that will [...] her last cardiac catheterization whichwas done at [facility] in [place]. This was done a little over a [...] agree with the plan. I notified our furniture salesperson, Dr. Miles. documented in this [facility]08-24-2023 Plan of care note* Care Plan - [...] the shift include CP 3/10 or less [address] [id number] Note* Care Coordination - Zulay Ellis RN - 06/05/2023 5:21 PM EDT Care Managment Initial Assessment Date: 06/05/2023 Patient Name: Lisbeth Craven : 1960 Patient Information Source of Information: Patient Cognition/Language: WFL - Within Functional Limits Permission given to speak with patient payroll representative/caregiver as indicated: Confirmation of Payer with [...] Prescription Coverage: Yes Pharmacy Used: [facility] in [place] Medication Management: Independent Transportation/Shopping: Independent Transportation Mode: [...] No needs identified .. Zulay Ellis RN [id number] Plan of care note* Care Plan - [...] Recommendations to address these barriers include n/a. [place] [id number] History of Present illness Narrative* Kathleen Santos MD - 06/05/2023 11:40 AM EDT Images from the original note were not included. [facility] [address] [facility] [address] Dept: [phone] Dept Loc: [phone] DATE of SERVICE:06/05/23 TIME of SERVICE: 12:03 [...] March 02, 2022. This was done at [facility] in [place]. Her left main was normal. She had [...] Chronic kidney disease Coronary artery disease Hypertension [place] (myocardial infarction) ([facility]/HCC) ([facility]) Past Surgical History History reviewed. No pertinent [...] mouth in the morning., Disp: , Rfl: vzxvqcpodi-spgcqkylxcjkj-cuscobhk 50-325-40 MG tablet, Take 1 tablet by [...] later today or tomorrow. documented in this [facility]07-13-2023 NoteHNO ID: [id number] Author: RT Buster(Judith) Service: ? Author Type: Home Performance Laborer Type: Progress Notes Filed: 04/24/2023 3:43 PM [...] BY: RT Regino(R) April 24, 2023 3:43 [facility]07-13-2023 History of Present illness Narrative* Bria [...] 24, 2023 3:43 PM documented in this encounterKeenan [facility] Hospital07-07-2023 Miscellaneous Notes* Telephone Encounter - Tiffanie [...] kidney disease. Please advise. documented in this encounterKeenan Private Hospital06-26-2023 Miscellaneous Notes* Telephone Encounter - Buffy [...] Please advise. Felicity Higgins documented in this encounterKeenan Private Hospital06-23-2023 NoteHNO ID: [id number] Author: Eliecer Vasquez MD Service: ? Author Type: Physician Type: Progress Notes Filed: 04/04/2023 1:51 PM Note Text: [facility] Progress Note SERVICE DATE: April 04, 2023 [...] (FLONASE) 50 mcg/actuation nasal spray Use 1 Whitmer in each nostril once daily as needed. [...] leg: No edema. Left (more content not included)...[facility]06-23-2023 History of Present illness Narrative* Eliecer Vasquez MD - 04/04/2023 1:24 PM EDT Images from the original note were not included. [facility] Progress Note SERVICE DATE: April 04, 2023 [...] (FLONASE) 50 mcg/actuation nasal spray Use 1 Whitmer in each nostril once daily as needed. [...] cc: Cristel Valenzuela MD documented in this encounterKeenan Private Hospital05-15-2023 History of Present illness Narrative* Alize Hernandez MA - 02/24/2023 10:30 AM EDT ek * Bertha Patricio PA-C - 02/24/2023 10:30 AM EDT [facility] Note DATE of SERVICE:02/24/23 [...] getting records that we have requested in [place]. I did find the cath report and echocardiogram in care everywhere. We printed these off so that she could call back to [place] [facility] to see if she could potentially enroll as she is still within the 1 year window. Past Medical History: Past Medical History: Diagnosis Date Chronic kidney disease Coronary artery disease Hypertension [place] (myocardial infarction) (CMS/HCC) (HCC) Past Surgical History [...] mouth in the morning., Disp: , Rfl: iwyaydsvgm-tksqvsjctcxmb-unucmezg 50-325-40 MG tablet, Take 1 tablet by [...] problems should arise. documented in this encounterSOhioHealth Hardin Memorial HospitalLabepy04-70-4697 Telephone encounter Note* Telephone Encounter - [place], Benitojah - 02/03/2023 3:31 PM EDT Spoke to pt. Pt states BV is to far. Will call and reschedule in the future if needed. [id number] Miscellaneous Notes* Telephone Encounter - Chevy Lui - 02/03/2023 3:31 PM EDT Spoke to pt. Pt states BV is to far. Will call and reschedule in the future if needed. documented in this [id number] NoteHNO ID: [id number] Author: Susan Alvares MD Service: ? Author [...] RELIEF) 50 mcg/actuation nasal spray Use 1 Whitmer in each nostril once daily as needed. [...] detail. Susan Alvares MD cc: Susan Valenzuela, [facility]03-22-2023 History of Present illness Narrative* Susan Alvares [...] RELIEF) 50 mcg/actuation nasal spray Use 1 Whitmer in each nostril once daily as needed. [...] cc: Susan Valenzuela MD documented in this encounterKeenan Private Hospital03-08-2023 NoteHNO ID: [id number] Author: Susan Alvares MD Service: ? Author [...] RELIEF) 50 mcg/actuation nasal spray Use 1 Whitmer in each nostril once daily as needed. [...] and no sign (more content not included)... [facility]03-08-2023 History of Present illness Narrative* Susan Alvares [...] RELIEF) 50 mcg/actuation nasal spray Use 1 Whitmer in each nostril once daily as needed. [...] headaches diplopia ataxia or symptoms to suggest DIRECTOR SKILLS metastasis Denies dysuria increased urinary frequency hesitancy [...] cc: Daniela Valenzuela MD documented in this encounterKeenan Private Hospital05-24-2022 [facility]* Diagnosis Malignant neoplasm of ascending colon (HCC)- Primary Malignant neoplasm of ascending colon documented in this encounter [facility] note* Diagnosis Malignant neoplasm of ascending colon (HCC)- Primary Malignant neoplasm of ascending colon documented in this encounter [facility] note* Diagnosis Primary hypertension- Primary Unspecified essential hypertension Coronary artery disease involving curyung coronary artery of curyung heart without angina pectoris [facility]* Diagnosis Malignant neoplasm of ascending colon (HCC)- Primary Malignant neoplasm of ascending colon documented in this encounter [facility] note* Diagnosis Malignant neoplasm of ascending colon (HCC)- Primary Malignant neoplasm of ascending colon documented in this encounter [facility] note* Diagnosis Coronary artery disease, unspecified vessel or lesion type, unspecified whether angina present, unspecified whether curyung or transplanted heart Chest pain Unspecified chest pain documented [facility] this [facility]* Diagnosis Chest discomfort- Primary Other chest pain Chest pain Unspecified chest pain Coronary artery disease involving curyung coronary artery of curyung heart without angina pectoris Chest pain Unspecified chest pain Chest pain, unspecified type documented in this encounter [facility] note* Diagnosis Menopause- Primary Symptomatic menopausal or female climacteric states Rheumatoid arthritis involving multiple sites, unspecified whether rheumatoid factor present (HCC) Osteopenia of multiple sites Stage 3a chronic kidney disease (HCC) Rheumatoid arthritis involving multiple sites, unspecified whether rheumatoid factor present (HCC) [facility]* Diagnosis Rheumatoid arthritis involving multiple sites, unspecified whether rheumatoid factor present (HCC) [facility]* Diagnosis Rheumatoid arthritis involving multiple sites, unspecified whether rheumatoid factor present (HCC)- Primary documented in this encounter [facility] note* Diagnosis Coronary artery disease, unspecified vessel or lesion type, unspecified whether angina present, unspecified whether curyung or transplanted heart- Primary Angina pectoris, unstable (CMS/HCC) (HCC) Intermediate coronary syndrome documented [facility] this [facility]* Diagnosis Chest pain, unspecified type documented in this encounter [facility]* Diagnosis Malignant neoplasm of ascending colon (HCC)- Primary Malignant neoplasm of ascending colon documented in this encounter [facility] note* Diagnosis Coronary artery disease, unspecified vessel or lesion type, unspecified whether angina present, unspecified whether curyung or transplanted heart- Primary [facility]* Diagnosis Coronary artery disease, unspecified vessel or lesion type, unspecified whether angina present, unspecified whether curyung or transplanted heart- Primary [facility]* Diagnosis Coronary artery disease, unspecified vessel or lesion type, unspecified whether angina present, unspecified whether curyung or transplanted heart- Primary Angina pectoris (HCC) Other and unspecified angina pectoris documented in this encounter [facility]* Diagnosis Coronary artery disease involving curyung coronary artery of curyung heart without angina pectoris- Primary Chest pain, unspecified type Primary hypertension Unspecified essential hypertension documented in this encounter [facility]* Diagnosis Coronary artery disease, unspecified vessel or lesion type, unspecified whether angina present, unspecified whether curyung or transplanted heart- Primary Angina pectoris (HCC) Other and unspecified angina pectoris documented in this encounter [facility]* Diagnosis Coronary artery disease, unspecified vessel or lesion type, unspecified whether angina present, unspecified whether curyung or transplanted heart- Primary Angina pectoris (HCC) Other and unspecified angina pectoris documented in this encounter [facility]* Diagnosis Angina pectoris (HCC)- Primary Other and unspecified angina pectoris Coronary artery disease involving curyung coronary artery of curyung heart without angina pectoris documented in this encounter [facility]* Diagnosis Coronary artery disease, unspecified vessel or lesion type, unspecified whether angina present, unspecified whether curyung or transplanted heart- Primary Angina pectoris (HCC) Other and unspecified angina pectoris documented in this encounter [facility]* Diagnosis Coronary artery disease involving curyung coronary artery of curyung heart without angina pectoris- Primary Chest pain, unspecified type Primary hypertension Unspecified essential hypertension Coronary artery disease of curyung artery of curyung heart with stable angina pectoris (HCC) documented in this encounter [facility]* Diagnosis Malignant neoplasm of ascending colon (HCC) Malignant neoplasm of ascending colon documented in this [facility]* Diagnosis Menopause Symptomatic menopausal or female climacteric states Osteopenia of multiple sites [facility]* Diagnosis Coronary artery disease, unspecified vessel or lesion type, unspecified whether angina present, unspecified whether curyung or transplanted heart- Primary Angina pectoris (HCC) Other and unspecified angina pectoris documented in this encounter [facility]* Diagnosis Coronary artery disease involving curyung coronary artery of curyung heart without angina pectoris documented in this encounter [facility] for referral (narrative)* Consultation (Routine) - Pending Review Specialty Diagnoses / Procedures Referred By Contac t Referred To Contact Cardiology Diagnoses Angina pectoris, unstable (CMS/HCC) (HCC) Procedures LA OFFICE/OUTPATIENT NEW HIGH MDM 60-74 MINUTES Talisha Cardozo APRN - CNP [address] [facility] [address] [place] [address] Referral ID Status Reason Start Date Expiration Date Visits Requested Visits Authorized [id number] Pending Review Specialty Services Required 06/12/2023 06/11/2024 1 1 [facility] for referral (narrative)* Consultation (Routine) - Pending Review Specialty Diagnoses / Procedures Referred By Contac t Referred To Contact Cardiology Diagnoses Coronary artery disease, unspecified vessel or lesion type, unspecified whether angina present, unspecified whether curyung or transplanted heart Procedures LA OFFICE/OUTPATIENT NEW HIGH MDM 60-74 MINUTES Kathleen Santos MD [address] [address] Referral ID Status Reason Start Date Expiration Date Visits Requested Visits Authorized [id number] Pending Review Specialty Services Required 07/11/2023 07/10/2024 1 1 [facility] Consultation (Routine) - Pending Review Specialty Diagnoses / Procedures Referred By Contac t Referred To Contact Cardiology Diagnoses Coronary artery disease, unspecified vessel or lesion type, unspecified whether angina present, unspecified whether curyung or transplanted heart Angina pectoris (HCC) Procedures LA OFFICE/OUTPATIENT NEW HIGH MDM 60-74 MINUTES Kathleen Santos MD [address] [address] Referral ID Status Reason Start Date Expiration Date Visits Requested Visits Authorized [id number] Pending Review Specialty Services Required 07/15/2023 07/14/2024 1 1 * Consultation (Routine) - Pending Review Specialty Diagnoses / Procedures Referred By Contac t Referred To Contact Cardiology Diagnoses Coronary artery disease, unspecified vessel or lesion type, unspecified whether angina present, unspecified whether curyung or transplanted heart Procedures LA OFFICE/OUTPATIENT NEW HIGH MDM 60-74 MINUTES Kathleen Santos MD [address] [address] Referral ID Status Reason Start Date Expiration Date Visits Requested Visits Authorized [id number] Pending Review Specialty Services Required 07/11/2023 07/10/2024 1 1 [facility] (n[facility] Consultation (Routine) - Pending Review Specialty Diagnoses / Procedures Referred By Contac t Referred To Contact Cardiology Diagnoses Angina pectoris (HCC) Coronary artery disease involving curyung coronary artery of curyung heart without angina pectoris Procedures LA OFFICE/OUTPATIENT NEW HIGH MDM 60-74 MINUTES Bertha Patricio PA-C [address] [place] [address] Referral ID Status Reason Start Date Expiration Date Visits Requested Visits Authorized [id number] Pending Review Specialty Services Required 08/18/2023 08/17/2024 1 1 [facility] Family History No Family [...] & PELVIS W/CONTRAST Eliecer Vasquez MD [address] [place] [address] Ct Imaging Referral ID Status Reason Start Date Expiration Date Visits Requested Visits Authorized [id number] Additional Clinical Info Needed Auto-Generat ed Referral 04/04/2023 05/03/2024 1 1 Specialty Diagnoses / Procedures Referred By Contac t Referred To Contact Radiology Diagnoses Menopause Osteopenia of multiple sites Procedures BD BONE DENSITY SURVEY Vero Wu MD [address] [place] [address] [facility] BONE DENSITY [address] [place] [address] Referral ID Status Reason Start Date Expiration Date V isits Requested Visits Authorized [id number] Authorized 06/09/2023 06/08/2024 1 1 Specialty Diagnoses / Procedures Referred By Contac t Referred To Contact Radiology Diagnoses Rheumatoid arthritis involving multiple sites, unspecified whether rheumatoid factor present (HCC) Procedures XR FOOT RIGHT 3 VIEWS Vero Wu MD [address] [place] [address] [facility] DIAGNOSTIC RADIOLOGY [address] [place] [address] [place] [address] Referral ID Status Reason Start Date Expiration Date Visits Re quested Visits Authorized [id number] Closed 06/09/2023 06/08/2024 1 1 Specialty Diagnoses / Procedures Referred By Contac t Referred To Contact Radiology Diagnoses Rheumatoid arthritis involving multiple sites, unspecified whether rheumatoid factor present (HCC) Procedures XR FOOT LEFT 3 VIEWS Vero Wu MD [address] [place] [address] [facility] [address] [place] [address] [place] [address] Referral ID Status Reason Start Date Expiration Date Visits Re quested Visits Authorized [id number] Closed 06/09/2023 06/08/2024 1 1 Specialty Diagnoses / Procedures Referred By Contac t Referred To Contact Radiology Diagnoses Rheumatoid arthritis involving multiple sites, unspecified whether rheumatoid factor present (HCC) Procedures XR ARTHRITIS SURVEY HAND/WRIST Vero Wu MD [address] [place] [address] [facility] [address] [place] [address] [place] [address] Referral ID Status Reason Start Date Expiration Date Visits Re quested Visits Authorized [id number] Closed 06/09/2023 06/08/2024 1 1 Specialty Diagnoses / Procedures Referred By Contac t Referred To Contact CT IMAGING Diagnoses Malignant neoplasm of ascending colon (HCC) Procedures CT ABD/PEL WO IVCON CT ABD & PELVIS W/O CONTRAST Eliecer Vasquez MD [facility] [place] [address] [facility] [place] [address] Referral ID Status Reason Start Date Expiration Date V isits Requested Visits Authorized [id number] Closed Auto-Generate d Referral 04/17/2023 06/16/2023 2 2 Specialty Diagnoses / Procedures Referred By Contac t Referred To Contact CT IMAGING Diagnoses Malignant neoplasm of ascending colon (HCC) Procedures CT CHEST WO IVCON DIAGNOSTIC COMPUTED TOMOGRAPHY THORAX W/O CNTRST Eliecer Vasquez MD [facility] [place] [address] [place] [address] Referral ID Status Reason Start Date Expiration Date V isits Requested Visits Authorized [id number] Closed Auto-Generate d Referral 04/17/2023 06/16/2023 1 1 Referral ID Status Reason Start Date Expiration Date Visits Re quested Visits Authorized [id number] Closed 06/09/2023 06/08/2024 1 1 Additional Source Comments Source Comments (unrecognize d section and content) In the event this informatio n is protected by the Federal Confidentiality of Alcohol and Drug Abuse Patient Records regulations: The Federal rules restrict any use of the information to criminally investigate or prosecute any alcohol or drug abuse patient.[facility] the event this information is protected by the Federal Confidentiality of Alcohol and Drug Abuse Patient Records regulations: The Federal rules restrict any use of the information to criminally investigate or prosecute any alcohol or drug abuse patient.[facility] the event this information is protected by the Federal Confidentiality of Alcohol and Drug Abuse Patient Records regulations: The Federal rules restrict any use of the information to criminally investigate or prosecute any alcohol or drug abuse patient.[facility] the event this information is protected by the Federal Confidentiality of Alcohol and Drug Abuse Patient Records regulations: The Federal rules restrict any use of the information to criminally investigate or prosecute any alcohol or drug abuse patient.[facility] the event this information is protected by the Federal Confidentiality of Alcohol and Drug Abuse Patient Records regulations: The Federal rules restrict any use of the information to criminally investigate or prosecute any alcohol or drug abuse patient.[facility] the event this information is protected by the Federal Confidentiality of Alcohol and Drug Abuse Patient Records regulations: The Federal rules restrict any use of the information to criminally investigate or prosecute any alcohol or drug abuse patient.[facility] the event this information is protected by the Federal Confidentiality of Alcohol and Drug Abuse Patient Records regulations: The Federal rules restrict any use of the information to criminally investigate or prosecute any alcohol or drug abuse patient.[facility] the event this information is protected by the Federal Confidentiality of Alcohol and Drug Abuse Patient Records regulations: The Federal rules restrict any use of the information to criminally investigate or prosecute any alcohol or drug abuse patient.[facility] the event this information is protected by the Federal Confidentiality of Alcohol and Drug Abuse Patient Records regulations: The Federal rules restrict any use of the information to criminally investigate or prosecute any alcohol or drug abuse patient.[facility] INFORMATION SOURCE (unrecogn ized section and content) DATE CREATED AUTHOR AUTHOR'S ORGANIZ ATION 04/19/2022 [facility] DATE CREATED AUTHOR AUTHOR'S ORGANIZ ATION 09/06/2023 [facility] [employer] [facility] DATE CREATED AUTHOR AUTHOR'S ORGANIZ ATION 10/26/2023 [facility] DATE CREATED AUTHOR AUTHOR'S ORGANIZ ATION 10/30/2023 [facility] Reason for Visit (unrecogniz ed section and content) Reason Comments Established Patient Reason Comments Follow-up Reason Comments Follow Up Reason Comments Patient Question Specialty Diagnoses / Procedures Referred By Contac t Referred To Contact Diagnoses Chest pain Chest discomfort Chest pain [R07.9] Procedures Left heart cath / coronary angiography Kathleen Santos MD [address] [place] [address] [address] [address] [phone] Referral ID Status Reason Start Date Expiration Date Visits Re quested Visits Authorized [id number] 1 1 Reason Comments New patient, to establish relationship Specialty Diagnoses / Procedures Referred By Contac t Referred To Contact Radiology Diagnoses Rheumatoid arthritis involving multiple sites, unspecified whether rheumatoid factor present (HCC) Procedures XR FOOT RIGHT 3 VIEWS Vero Wu MD [address] [place] [address] [facility] [address] [place] [address] Referral ID Status Reason Start Date Expiration Date Visits Re quested Visits Authorized [id number] Closed 06/09/2023 06/08/2024 1 1 Reason Comments [...] PELVIS W/O CONTRAST Eliecer Vasquez MD [address] [place] [address] [place] [address] Referral ID Status Reason Start Date Expiration Date V isits Requested Visits Authorized [id number] Closed Auto-Generate d Referral 04/17/2023 06/16/2023 2 2 Specialty Diagnoses / Procedures Referred By Contac t Referred To Contact Radiology Diagnoses Menopause Osteopenia of multiple sites Procedures BD BONE DENSITY SURVEY Vero uW MD [address] [place] [address] [facility] BONE DENSITY [address] [place] [address] Referral ID Status Reason Start Date Expiration Date Visits Re quested Visits Authorized [id number] Closed 06/09/2023 06/08/2024 1 1 Reason Comments Discuss results test/procedures Reason Comments 6 Month Follow-up Care Teams (unrecognized sec tion and content) Analytical Laboratory Technician Relationship Specialty Start Date End Date Cristel Valenzuela MD [address] [place] [address] PCP - General Internal Medicine 12/18/22 Susan Alvares MD [address] [place] [address] Oncology 12/18/22 Analytical Laboratory Technician Relationship Specialty Start Date End Date Cristel Valenzuela [address] [place] [address] [place] [phone] PCP - General Internal Medicine 02/24/23 Analytical Laboratory Technician Relationship Specialty Start Date End Date Cristel Valenzuela MD [address] [place] [address] PCP - General Internal Medicine 12/18/22 Susan Alvares MD [address] [place] [address] Oncology 12/18/22 Analytical Laboratory Technician Relationship Specialty Start Date End Date Cristel Valenzuela MD [address] [place] [address] PCP - General Internal Medicine 12/18/22 Susan Alvares MD [address] [place] [address] Oncology 12/18/22 Analytical Laboratory Technician Relationship Specialty Start Date End Date Cristel Valenzuela MD [address] [place] [address] PCP - General Internal Medicine 12/18/22 Susan Alvares MD [address] [place] [address] Oncology 12/18/22 Analytical Laboratory Technician Relationship Specialty Start Date End Date Cristel Valenzuela [address] [place] [phone] PCP - General Internal Medicine 02/24/23 Analytical Laboratory Technician Relationship Specialty Start Date End Date Cristel Valenzuela [address] [place] [phone] PCP - General Internal Medicine 02/24/23 Analytical Laboratory Technician Relationship Specialty Start Date End Date Cristel Valenzuela [address] [place] [address] [place] [phone] PCP - General Internal Medicine 02/24/23 Cristel Valenzuela [address] [place] [address] 02/24/23 Analytical Laboratory Technician Relationship Specialty Start Date End Date Cristel Valenzuela [address] [place] [phone] PCP - General Internal Medicine 02/24/23 Cristel Valenzuela [address] [place] [address] 02/24/23 Analytical Laboratory Technician Relationship Specialty Start Date End Date Vero Wu MD [address] [place] [address] Physician Rheumatology 06/14/23 Analytical Laboratory Technician Relationship Specialty Start Date End Date Cristel Valenzuela MD [address] [place], [place] [address] PCP - General Internal Medicine 12/18/22 Susan Alvares MD [address] [place], [place] [address] Oncology 12/18/22 Analytical Laboratory Technician Relationship Specialty Start Date End Date Cristel Valenzuela [address] [place] [address] PCP - General Internal Medicine 02/24/23 Cristel Valenzuela [address] [place] [address] 02/24/23 Analytical Laboratory Technician Relationship Specialty Start Date End Date Vero Wu MD [address] [place] [address] Physician Rheumatology 06/14/23 Analytical Laboratory Technician Relationship Specialty Start Date End Date Cristel Valenzuela [address] [place] [phone] PCP - General Internal Medicine 02/24/23 Cristel Valenzuela [address] [place] [address] 02/24/23 Analytical Laboratory Technician Relationship Specialty Start Date End Date Cristel Valenzuela [address] [place] [phone] PCP - General Internal Medicine 02/24/23 Cristel Valenzuela [address] [place] [address] 02/24/23 Analytical Laboratory Technician Relationship Specialty Start Date End Date Cristel Valenzuela [address] [place] [place] [address] PCP - General Internal Medicine 02/24/23 Cristel Valenzuela [address] [place] [address] 02/24/23 Analytical Laboratory Technician Relationship Specialty Start Date End Date Cristel Valenzuela [address] [place] [address] PCP - General Internal Medicine 02/24/23 Cristel Valenzuela [address] [place] [address] 02/24/23 Analytical Laboratory Technician Relationship Specialty Start Date End Date Vero Wu MD [address] [place] [address] Physician Rheumatology 06/14/23 Analytical Laboratory Technician Relationship Specialty Start Date End Date Cristel Valenzuela [address] [place] [phone] PCP - General Internal Medicine 02/24/23 Cristel Valenzuela [address] [place] [address] 02/24/23 Analytical Laboratory Technician Relationship Specialty Start Date End Date Cristel Valenzuela [address] [place] [phone] PCP - General Internal Medicine 02/24/23 Cristel Valenzuela [address] [place] [address] 02/24/23 Analytical Laboratory Technician Relationship Specialty Start Date End Date Cristel aVlenzuela [address] [place] [address] PCP - General Internal Medicine 02/24/23 Cristel Valenzuela [address] [place] [address] 02/24/23 Analytical Laboratory Technician Relationship Specialty Start Date End Date Cristel Valenzuela [address] [place] [phone] PCP - General Internal Medicine 02/24/23 Cristel Valenzuela [address] [place] [address] 02/24/23 Analytical Laboratory Technician Relationship Specialty Start Date End Date Cristel Valenzuela MD [address] [place], [place] [address] PCP - General Internal Medicine 12/18/22 Susan Alvares MD [address] [place], [place] [phone] Oncology 12/18/22 07/01/23 Analytical Laboratory Technician Relationship Specialty Start Date End Date Vero Wu MD [address] [place] [address] Physician Rheumatology 06/14/23 Analytical Laboratory Technician Relationship Specialty Start Date End Date Cristel Valenzuela [address] [facility] [address] [place] [phone] PCP - General Internal Medicine 02/24/23 Cristel Valenzuela [address] [place] [address] 02/24/23 Analytical Laboratory Technician Relationship Specialty Start Date End Date Vero Wu MD [address] [place] [address] Physician Rheumatology 06/14/23 Analytical Laboratory Technician Relationship Specialty Start Date End Date Cristel Valenzuela [address] [facility] [address] [place] [phone] PCP - General Internal Medicine 02/24/23 Cristel Valenzuela [address] [place] [address] 02/24/23 Analytical Laboratory Technician Relationship Specialty Start Date End Date Vero Wu MD [address] [place] [address] Physician Rheumatology 06/14/23 Analytical Laboratory Technician Relationship Specialty Start Date End Date Cristel Valenzuela [address] [facility] [address] [place] [address] PCP - General Internal Medicine 02/24/23 Cristel Valenzuela [address] [place] [address] 02/24/23 Scheduled Active and Recently Administ ered [...] BE BASED ON THE PRIMARY CLINICAL RECORDS. [facility]. provides no warranty or guarantee of the accuracy or completeness of information in this document.
[2023-12-17 06:45] VITALS: BP 128/62; PULSE 56; RESP 16; TEMP 36.6; O2SAT 98; BMI 28.5
[2023-12-17] MEDS: Lactated Ringers 1,000 ML 15 ML IV (06:52)
--- NOTE | 2023-12-17 07:00 | IMM_PTH ---
PATHOLOGY RESULTS PATIENT: ESTELLA SU LOC: EN U#:[id number] AGE/SX: 63/F ROOM: RE12/17/[address]: Dr. Shaun Suarez DO : 1960 BED: DIS: 12/17/2023 SPEC #: [id number] RECD: 12/17/23 14:20 STATUS: JAYSHREE REQ #: [id number] LANRE: 12/17/23 07:[address]: Shaun Suarez DEPT: IMMUNOHISTOCHEMISTRY RECD BY: Lorenza Retaan ENTERED: 12/17/23 14:21 SP TYPE: IMMUNO OTHR DR: Dr. Kimi López MD Tissues: Stomach, NOS Procedures: H Pylori (initial) PHYSICIAN & INSTITUTION [place] [address] SPECIMEN INFORMATION: Tissue Source: A - Gastric body Clinical Info: GERD Specimen Number: [id number] CPT code: 95684 METHODOLOGY: Deparaffinized sections of prefer/formalin-fixed tissue or PAP/DQ stained slides are incubated with monoclonal/polyclonal antibodies/oligonucleotide probes. Localization is made via biotin free immunoperoxidase method. Appropriate controls are performed and reacted as expected. Results on target cell population are indicated in the following table: RESULTS: ANTIBODY / CLONE RESULT Block A H Pylori (polyclonal) negative These tests were developed and their performance characteristics determined by [facility]. They may not have been cleared or approved by the U.[place]. Food and Drug Administration. The FDA has determined that such clearance or approval is not necessary. The above immunohistochemical/dualISH markers are ordered and reviewed by the Pathologist. INTERPRETATION: A. Gastric body, biopsy: Negative for Helicobacter pylori organisms. AM:vicente 12/18/2023
[2023-12-17 07:13] LABS: Bedside Glucose 188 mg/dL (74-106)
--- NOTE | 2023-12-17 07:24 | HP.PCM_ITS ---
History and Physical Date of Admission: 12/17/23 ESTELLA SU, is a 63 F who presents to the office today for follow up. WSA established 10.01.22 with abd pain and iron deficiency anemia. ?EGD and colonoscopy 11.01.22. EGD without visual abnormality, pathology gastritis. H.Pylori negative Colonoscopy hemorrhoids on perianal exam; likely malignant tumor at hepatic flexure; malignant-appearing tumor in colon, tattooed. Pathology invasive well differentiated adenocarcinoma. CT abd/pel 11.06.22?hepatic hypodense 7.6mm nodule, cyst; renal cysts; hepatic flexure mass 4.4cx3.8cm; moderate fecal material; borderline retroperitoneal lymphadenopathy <10mm. ?Laparoscopic right colectomy 11.12.22?noting intra-abdominal adhesions with lysis. Discharged 11.13.22 Pathology invasive moderately differentiated adenocarcinoma. [facility] Hospitalization 11.15.22-11.19.22. With postop abdominal pain/nausea. Admitted for management. Treated for postop ileus with bowel rest and IVF. ?CT abd/pel?11.15.22 stable hepatic and renal cysts; fluid distention of small bowel down to TI, ?ileus; s/p right hemicolectomy with increased peritoneal fat markings. *[facility] Hospitalization 11.23.22-11.27.22. ED presentation with BRBPR with concern for orthostatic hypotension. Surgery consulted 11.23.22 with colonoscopy 11.24.22. GI consulted 11.23.22 for GIB recommending repeat colonoscopy Colonoscopy 11.24.22 Dr. Vasquez?mucosal ulceration; two 1-2mm TA polyps; patent end-to side colo-colonic anastomosis with friable mucosa, hemorrhagic appearance, ulceration and intact staple liver, APC; rectal pathology noting hyperplastic changes. CTA 11.25.22?atherosclerotic calcifications of aorta; coarse calcification of celiac trunk/mesenteric/renal arteries with moderate right renal artery st enosis; moderate calcifications of coronary arteries and left bifurcation, presumed stents in right coronary artery. Thick walled small bowel and colon; trace mesenteric fluid of right, inferior to anastomosis; mild mesenteric adenopathy; improved small bowel distention and increased colon contents without evidence of high-grade SBO; moderate fluid, gas in transverse colon, RS junction, sigmoid; collapsed rectum Colonoscopy 11.26.22 [facility]?patent end-to-side ileo-colonic anastomosis with health mucosa; single bleeding AVM, injected, heater probe, clip placed, tattooed; blo od in anus and RS colon. No specimens. [facility] hospitalization 12.05.22-12.09.22. ED presentation with rectal bleeding. hgb 5.8 and concern for repeated GIB she was admitted. GI consulted same day with colonoscopy 12.06.22 ?CTA 11.25.22?hepatic cyst 8.9mm with fatty infiltration; renal cyst 3.2cm. ?Colonoscopy 12.06.22 [facility]?patent end-to-side ileo-colonic anastomosis with hemorrhagic appearance and intact staple line, APC, clips. No specimens. OV 3.23 feels she is doing well at this time. She has been having difficulty with headaches and will be seeing ENT soon for this. ?Colonoscopy 11.27.23?mild rectal prolapse; 7mm TA polyp; [id number] ileo-colonic anastomosis with erosion and erythema. ? OV 12.03.23- Pt states for the last few months has felt a heaviness in chest after she eats. Food gets stuck. Thinks she might have a hiatal hernia. Also reports an increase in heartburn. Takes Famotidine 40mg qd. ROS Const Constitutional: No fatigue ENT ENT: No difficulty swallowing Gastro GI: Positive for heartburn; No abdominal pain, belching, bloating, change in bowel habits, change in stool character, coffee ground emesis, constipation, cramping, diarrhea, difficulty swallowing, feeling full early, excessive flatus, incontinent of stools, Vomiting blood/hematemesis, Blood in stool, loose stools, Black,tarry stools, nausea/dyspepsia, pain with swallowing, vomiting or other Musc Musculoskeletal: No joint pain Skin Skin: No yellowing of the eye or itchy eyes Psych Psychiatric: No anxiety and No depression Endo Endocrine: No fatigue Aller/Imm Allergy/Immunologic: No itchy eyes Ashkan/Lymp Hematologic/Lymphatic: No easy bleeding or easy bruising Exam Const General: cooperative, comfortable and no acute distress Orientation: alert, awake and oriented x3 HENMT Head: normal to inspection and normocephalic Ears: hearing grossly normal bilaterally, external ears normal and TM's normal bilaterally Nose: external nose normal and other (+ congestion and rhinorrhea. Mild er ythema and swelling. ) Face and sinus: normal facial exam, face symmetric and sinus tenderness maxillary Mouth: oral mucosae normal, lip normal, tongue normal, oropharynx normal and moist mucous membranes Throat: posterior oropharynx normal, tonsils normal, uvula midline and postnasal drainage Other: right nare with scant amt of blood. Neck Neck: normal visual inspection, full ROM and no lymphadenopathy Resp Effort & Inspection: normal respiratory effort, able to speak in complete sentences and symmetric chest movement Auscultation: Bilateral: Clear to Auscultation, Left: Clear to Auscultation and Right: Clear to Auscultation Cardio Rate: regular rate Rhythm: regular rhythm Heart Sounds: S1 normal and S2 normal GI Auscultation: normal bowel sounds Palpation: soft Skin General: no rashes or lesions noted and turgor normal Neuro General: patient alert, patient awake and patient oriented x3 Cognition: normal cognition Speech: speech normal Psych Appearance: grossly normal Mental Status: mental status grossly normal Attitude: cooperative Thought Process: normal Thought Content: normal Quality Reporting Tobacco Screening ([facility] 138) Smoking Status: Former smoker Assessment and Plan Assessment and Plan (1) Colon cancer: Status: Chronic Qualifiers: Colon location: ascending Qualified Code(s): C18.2 - Malignant neoplasm of ascending colon (2) Acute lower gastrointestinal bleeding: Status: Resolved Plan: We reviewed her colonoscopies, biopsies (tubular adenomas); recommended repeat colonoscopy one yr No further blood per rectum Discussed meds, she is willing to remain on pantoprazole 40 mg daily for 2 mos She is hoping to be taken off plavix in February has f/u with Dr López next week, she plans to contact his office for lab orders she has f/u with general surgery in 2 wks (3) Chest pain: Status: Acute Plan: She has had full cardiac workup for chest pain and is currently undergoing cardiac rehab. She underwent cardiac catheterization in there was no sign of ischemic changes or vascular abnormalities that needed to be treated with therapeutic intervention. I suspect that her chest pain is noncardiac and possibly esophageal. Differential diagnosis would be esophageal dysmotility disorder, atypical gastroesophageal reflux disease. She should undergo esophageal manometry along with an EGD and 48-hour Haas test. Plan Patient had colonoscopy performed on the that showed a single bleeding colonic angiodysplastic lesion.? It was injected and treated with heater probe and clipped.? Unclear if this is a current source of the bleeding.? Patient did have an ileocolonic anastomosis but that appeared to be intact. CT angiogram of the abdomen pelvis showed no evidence of active bleeding Colonoscopy on the showed hemorrhagic appearance of the ileocolonic anastomosis.? Treated with argon plasma coagulation and clips placed. Hgb is up to 11.6 * Coronary artery disease: Patient had stent placed in February.? Hold clopidogrel for 48 hours.? Continue to hold aspirin.? Continue with carvedilol * Diabetes mellitus type 2: Hold glipizide.? Sliding scale insulin * Rheumatoid arthritis: Continue with hydroxychloroquine * Hypothyroidism: Continue levothyroxine * Hypertension: Stable.? Continue with lisinopril and amlodipine with hold parameters. I have examined the patient and the H&P has been reviewed. There are no clinical changes since date of exam.
--- NOTE | 2023-12-17 07:47 | OP.CCLET_ITS ---
12/17/2023 Kimi López [facility] [address] [place] [address] Re : Upper GI endoscopy procedure for Lisbeth Craven Dear Dr. López This procedure was performed on Sunday, December 17, 2023. My impressions and recommendations are as follows: Impressions : - Abnormal esophageal motility, suspicious for esophageal spasm. - Chronic gastritis. Biopsied. - Normal second portion of the duodenum. - Biopsies were taken with a cold forceps for evaluation of eosinophilic esophagitis. Recommendations : - Discharge patient to home. - Resume previous diet. - Continue present medications. - Await pathology results. - Repeat upper endoscopy in 1 year for surveillance. My findings are described in the full procedure note, which is enclosed. If I can be of further assistance, please feel free to contact me at . Sincerely, Shaun Suarez, 12/17/2023 7:46:56 AM This report has been signed electronically.
--- NOTE | 2023-12-17 07:47 | OP.EGD_ITS ---
Patient Name: Lisbeth Craven Procedure Date: 12/17/2023 7:27 AM Date of : 1960 Age: 63 Procedure: Upper GI endoscopy Indications: Functional Dyspepsia, Failure to respond to medical treatment, Suspected esophageal motility disorder Providers: Shaun Suarez DO Referring MD: Kimi López Medicines: Monitored Anesthesia Care Patient Profile: This is a 63 year old female. Refer to note in patient chart for documentation of history and physical. Patient has symptoms of chronic chest pain. Complications: No immediate complications. Procedure: Pre-Anesthesia Assessment: - Prior to the procedure, a History and Physical was performed, and patient medications and allergies were reviewed. The patient is competent. The risks and benefits of the procedure and the sedation options and risks were discussed with the patient. All questions were answered and informed consent was obtained. Patient identification and proposed procedure were verified by the physician in the pre-procedure area. Mental Status Examination: alert and oriented. Airway Examination: normal oropharyngeal airway and neck mobility. Respiratory Examination: clear to auscultation. CV Examination: normal. Prophylactic Antibiotics: The patient does not require prophylactic antibiotics. Prior Anticoagulants: The patient has taken no anticoagulant or antiplatelet agents. After reviewing the risks and benefits, the patient was deemed in satisfactory condition to undergo the procedure. The anesthesia plan was to use monitored anesthesia care (MAC). Immediately prior to administration of medications, the patient was re-assessed for adequacy to receive sedatives. The heart rate, respiratory rate, oxygen saturations, blood pressure, adequacy of pulmonary ventilation, and response to care were monitored throughout the procedure. The physical status of the patient was re-assessed after the procedure. After obtaining informed consent, the endoscope was passed under direct vision. Throughout the procedure, the patient's blood pressure, pulse, and oxygen saturations were monitored continuously. The Endoscope was introduced through the mouth, and advanced to the second part of duodenum. The upper GI endoscopy was accomplished without difficulty. The patient tolerated the procedure well. Scope In: 7:37:49 AM Scope Out: 7:42:46 AM Total Procedure Duration Time 0 hours 4 minutes 57 seconds Findings: Abnormal motility was noted in the esophagus. The cricopharyngeus was abnormal. There is spasticity of the esophageal body. The distal esophagus/lower esophageal sphincter is spastic, but gives up passage to the endoscope. Tertiary peristaltic waves are noted. Biopsies were obtained from the proximal and distal esophagus with cold forceps for histology of suspected eosinophilic esophagitis. Localized moderate inflammation characterized by erosions, erythema and friability was found in the gastric body. Biopsies were taken with a cold forceps for histology. Verification of patient identification for the specimen was done. Estimated blood loss was minimal. Biopsies were taken with a cold forceps for Helicobacter pylori testing. Verification of patient identification for the specimen was done. Estimated blood loss was minimal. The second portion of the duodenum was normal. Impression: - Abnormal esophageal motility, suspicious for esophageal spasm. - Chronic gastritis. Biopsied. - Normal second portion of the duodenum. - Biopsies were taken with a cold forceps for evaluation of eosinophilic esophagitis. Recommendation: - Discharge patient to home. - Resume previous diet. - Continue present medications. - Await pathology results. - Repeat upper endoscopy in 1 year for surveillance. Procedure Code(s): --- Professional --- 75717, Esophagogastroduodenoscopy, flexible, transoral; with biopsy, single or multiple CPT copyright 2021 [employer]. All rights reserved. The codes documented in this report are preliminary and upon pre coder review may be revised to meet current compliance requirements. Shaun Suarez DO 12/17/2023 7:46:56 AM This report has been signed electronically. Number of Addenda: 0 Note Initiated On: 12/17/2023 7:27 AM
[2023-12-17 07:50] VITALS: BP 128/62; BP 98/54; PULSE 55; RESP 16; TEMP 36.2; O2SAT 93
[2023-12-17 07:55] VITALS: BP 102/55; BP 128/62; PULSE 55; RESP 16; O2SAT 96
[2023-12-17 08:00] VITALS: BP 100/54; BP 128/62; PULSE 56; RESP 16; TEMP 36.1; O2SAT 97
[2023-12-17 08:26] VITALS: BP 128/62
== END 2023-12-17 08:43 | disposition home or self-care (01) ==
LOC: EN 05:51 → AC 06:30
PROVIDERS: PCP Internal Medicine; Referring Provider Internal Medicine; Visit Provider Internal Medicine Gastroenterology
PROC: 0DJ08ZZ Inspection of Upper Intestinal Tract, Via Natural or Artificial Opening Endoscopic (ICD-10-PCS; CPT 43235; principal; 2023-12-17 06:55)
DX: K29.50 Unspecified chronic gastritis without bleeding (principal); M06.9 Rheumatoid arthritis, unspecified; C18.2 Malignant neoplasm of ascending colon; E11.9 Type 2 diabetes mellitus without complications; K30 Functional dyspepsia; R07.9 Chest pain, unspecified; I25.10 Atherosclerotic heart disease of native coronary artery without angina pectoris; Z95.5 Presence of coronary angioplasty implant and graft; E03.9 Hypothyroidism, unspecified; I10 Essential (primary) hypertension
CPT/HCPCS: 43239; 82962; 88305; 88313; 88342; J7120; J2405

== ENCOUNTER 2023-12-22 11:30 | Outpatient (RCR) | payer MEDICAID, SELFPAY ==
[2023-11-24 08:48] VITALS: BMI 28.5
[2023-12-12 00:34] VITALS: BP 128/52; BP 132/48; BP 98/62
== END 2024-01-11 23:59 ==
LOC: CR 11:30
PROVIDERS: PCP Internal Medicine
DX: I20.9 Angina pectoris, unspecified
CPT/HCPCS: 93798

== ENCOUNTER 2023-12-31 08:23 | Day surgery (SDC) | payer MEDICAID, SELFPAY ==
[2023-11-24 08:48] VITALS: BMI 28.5
[2023-12-31 08:46] VITALS: BP 144/53; PULSE 57; RESP 16; TEMP 37.3; O2SAT 99; BMI 28.8
[2023-12-31] MEDS: Lactated Ringers 1,000 ML 15 ML IV (08:50)
--- NOTE | 2023-12-31 09:20 | HP.PCM_ITS ---
History and Physical Date of Admission: 12/31/23 ESTELLA SU, is a 63 F who presents to the office today for follow up. WSA established 10.01.22 with abd pain and iron deficiency anemia. ?EGD and colonoscopy 11.01.22. EGD without visual abnormality, pathology gastritis. H.Pylori negative Colonoscopy hemorrhoids on perianal exam; likely malignant tumor at hepatic flexure; malignant-appearing tumor in colon, tattooed. Pathology invasive well differentiated adenocarcinoma. CT abd/pel 11.06.22?hepatic hypodense 7.6mm nodule, cyst; renal cysts; hepatic flexure mass 4.4cx3.8cm; moderate fecal material; borderline retroperitoneal lymphadenopathy <10mm. ?Laparoscopic right colectomy 11.12.22?noting intra-abdominal adhesions with lysis. Discharged 11.13.22 Pathology invasive moderately differentiated adenocarcinoma. [facility] Hospitalization 11.15.22-11.19.22. With postop abdominal pain/nausea. Admitted for management. Treated for postop ileus with bowel rest and IVF. ?CT abd/pel?11.15.22 stable hepatic and renal cysts; fluid distention of small bowel down to TI, ?ileus; s/p right hemicolectomy with increased peritoneal fat markings. *[facility] Hospitalization 11.23.22-11.27.22. ED presentation with BRBPR with concern for orthostatic hypotension. Surgery consulted 11.23.22 with colonoscopy 11.24.22. GI consulted 11.23.22 for GIB recommending repeat colonoscopy Colonoscopy 11.24.22 Dr. Vasquez?mucosal ulceration; two 1-2mm TA polyps; patent end-to side colo-colonic anastomosis with friable mucosa, hemorrhagic appearance, ulceration and intact staple liver, APC; rectal pathology noting hyperplastic changes. CTA 11.25.22?atherosclerotic calcifications of aorta; coarse calcification of celiac trunk/mesenteric/renal arteries with moderate right renal artery st enosis; moderate calcifications of coronary arteries and left bifurcation, presumed stents in right coronary artery. Thick walled small bowel and colon; trace mesenteric fluid of right, inferior to anastomosis; mild mesenteric adenopathy; improved small bowel distention and increased colon contents without evidence of high-grade SBO; moderate fluid, gas in transverse colon, RS junction, sigmoid; collapsed rectum Colonoscopy 11.26.22 [facility]?patent end-to-side ileo-colonic anastomosis with health mucosa; single bleeding AVM, injected, heater probe, clip placed, tattooed; blo od in anus and RS colon. No specimens. [facility] hospitalization 12.05.22-12.09.22. ED presentation with rectal bleeding. hgb 5.8 and concern for repeated GIB she was admitted. GI consulted same day with colonoscopy 12.06.22 ?CTA 11.25.22?hepatic cyst 8.9mm with fatty infiltration; renal cyst 3.2cm. ?Colonoscopy 12.06.22 [facility]GI?patent end-to-side ileo-colonic anastomosis with hemorrhagic appearance and intact staple line, APC, clips. No specimens. OV 3.23 feels she is doing well at this time. She has been having difficulty with headaches and will be seeing ENT soon for this. ?Colonoscopy 11.27.23?mild rectal prolapse; 7mm TA polyp; [id number] ileo-colonic anastomosis with erosion and erythema. ? OV 12.03.23- Pt states for the last few months has felt a heaviness in chest after she eats. Food gets stuck. Thinks she might have a hiatal hernia. Also reports an increase in heartburn. Takes Famotidine 40mg qd. ROS Const Constitutional: No fatigue ENT ENT: No difficulty swallowing Gastro GI: Positive for heartburn; No abdominal pain, belching, bloating, change in bowel habits, change in stool character, coffee ground emesis, constipation, cramping, diarrhea, difficulty swallowing, feeling full early, excessive flatus, incontinent of stools, Vomiting blood/hematemesis, Blood in stool, loose stools, Black,tarry stools, nausea/dyspepsia, pain with swallowing, vomiting or other Musc Musculoskeletal: No joint pain Skin Skin: No yellowing of the eye or itchy eyes Psych Psychiatric: No anxiety and No depression Endo Endocrine: No fatigue Aller/Imm Allergy/Immunologic: No itchy eyes Ashkan/Lymp Hematologic/Lymphatic: No easy bleeding or easy bruising Exam Const General: cooperative, comfortable and no acute distress Orientation: alert, awake and oriented x3 HENMT Head: normal to inspection and normocephalic Ears: hearing grossly normal bilaterally, external ears normal and TM's normal bilaterally Nose: external nose normal and other (+ congestion and rhinorrhea. Mild er ythema and swelling. ) Face and sinus: normal facial exam, face symmetric and sinus tenderness maxillary Mouth: oral mucosae normal, lip normal, tongue normal, oropharynx normal and moist mucous membranes Throat: posterior oropharynx normal, tonsils normal, uvula midline and postnasal drainage Other: right nare with scant amt of blood. Neck Neck: normal visual inspection, full ROM and no lymphadenopathy Resp Effort & Inspection: normal respiratory effort, able to speak in complete sentences and symmetric chest movement Auscultation: Bilateral: Clear to Auscultation, Left: Clear to Auscultation and Right: Clear to Auscultation Cardio Rate: regular rate Rhythm: regular rhythm Heart Sounds: S1 normal and S2 normal GI Auscultation: normal bowel sounds Palpation: soft Skin General: no rashes or lesions noted and turgor normal Neuro General: patient alert, patient awake and patient oriented x3 Cognition: normal cognition Speech: speech normal Psych Appearance: grossly normal Mental Status: mental status grossly normal Attitude: cooperative Thought Process: normal Thought Content: normal Quality Reporting Tobacco Screening ([facility] 138) Smoking Status: Former smoker Assessment and Plan Assessment and Plan (1) Colon cancer: Status: Chronic Qualifiers: Colon location: ascending Qualified Code(s): C18.2 - Malignant neoplasm of ascending colon (2) Acute lower gastrointestinal bleeding: Status: Resolved Plan: We reviewed her colonoscopies, biopsies (tubular adenomas); recommended repeat colonoscopy one yr No further blood per rectum Discussed meds, she is willing to remain on pantoprazole 40 mg daily for 2 mos She is hoping to be taken off plavix in February has f/u with Dr López next week, she plans to contact his office for lab orders she has f/u with general surgery in 2 wks (3) Chest pain: Status: Acute Plan: She has had full cardiac workup for chest pain and is currently undergoing cardiac rehab. She underwent cardiac catheterization in there was no sign of ischemic changes or vascular abnormalities that needed to be treated with therapeutic intervention. I suspect that her chest pain is noncardiac and possibly esophageal. Differential diagnosis would be esophageal dysmotility disorder, atypical gastroesophageal reflux disease. She should undergo esophageal manometry along with an EGD with Botox injection. Plan Patient had colonoscopy performed on the that showed a single bleeding colonic angiodysplastic lesion.? It was injected and treated with heater probe and clipped.? Unclear if this is a current source of the bleeding.? Patient did have an ileocolonic anastomosis but that appeared to be intact. CT angiogram of the abdomen pelvis showed no evidence of active bleeding Colonoscopy on the showed hemorrhagic appearance of the ileocolonic anastomosis.? Treated with argon plasma coagulation and clips placed. Hgb is up to 11.6 * Coronary artery disease: Patient had stent placed in February.? Hold clopidogrel for 48 hours.? Continue to hold aspirin.? Continue with carvedilol * Diabetes mellitus type 2: Hold glipizide.? Sliding scale insulin * Rheumatoid arthritis: Continue with hydroxychloroquine * Hypothyroidism: Continue levothyroxine * Hypertension: Stable.? Continue with lisinopril and amlodipine with hold parameters.I have examined the patient and the H&P has been reviewed. There are no clinical changes since date of exam.
--- NOTE | 2023-12-31 09:30 | IMM_PTH ---
PATIENT: ESTELLA SU LOC: EN U#:[id number] AGE/SX: 63/F ROOM: RE12/31/[address]: Dr. Shaun Suarez DO : 1960 BED: DIS: 12/31/2023 SPEC #: [id number] RECD: 12/31/23 13:46 STATUS: JAYSHREE REQ #: [id number] LANRE: 12/31/23 09:[address]: Shaun Suarez DEPT: IMMUNOHISTOCHEMISTRY RECD BY: Jordan Dockery ENTERED: 12/31/23 13:47 SP TYPE: IMMUNO OTHR DR: Dr. Kimi López MD Tissues: A - Stomach, NOS Procedures: H Pylori (initial) PHYSICIAN & INSTITUTION [place] [id number] SPECIMEN INFORMATION: Tissue Source: A- Gastric body, biopsy Clinical Info: Colon cancer, Acute lower gastrointestinal bleeding, Chest pain Specimen Number: [id number] CPT code: 92159 METHODOLOGY: Deparaffinized sections of prefer/formalin-fixed tissue or PAP/DQ stained slides are incubated with monoclonal/polyclonal antibodies/oligonucleotide probes. Localization is made via biotin free immunoperoxidase method. Appropriate controls are performed and reacted as expected. Results on target cell population are indicated in the following table: RESULTS: ANTIBODY / CLONE RESULT Block A H Pylori (polyclonal) negative These tests were developed and their performance characteristics determined by [facility]. They may not have been cleared or approved by the U.S. Food and Drug Administration. The FDA has determined that such clearance or approval is not necessary. The above immunohistochemical/dualISH markers are ordered and reviewed by the Pathologist. INTERPRETATION: A. Gastric body, biopsy: Negative for Helicobacter pylori organisms. SJ:vicente 01/01/2024
--- NOTE | 2023-12-31 09:30 | EGD_PTH ---
PATIENT: ESTELLA SU LOC: EN U#:[id number] AGE/SX: 63/F ROOM: RE12/31/[address]: Dr. Shaun Suarez DO : 1960 BED: DIS: 12/31/2023 SPEC #: [id number] RECD: 12/31/23 12:08 STATUS: JAYSHREE MERRILL #: [id number] LANRE: 12/31/23 09:[address]: Shaun Suarez DEPT: SURGICAL PATHOLOGY RECD BY: Marycarmen De La Vega ENTERED: 12/31/23 13:13 SP TYPE: EGD BIOPSY LAURA DR: Dr. Kimi López MD Tissues: A - Gastric mucous membrane B - Duodenum, NOS Procedures: Surgery Specimen Level IV HEADER OPERATION: EGD with biopsy PRE-OP DIAGNOSIS: Colon cancer, Acute lower gastrointestinal bleeding, Chest pain TISSUE SUBMITTED: A- Gastric body biopsy, B- Duodenal polyp biopsy MICROSCOPIC DIAGNOSIS A. Gastric body, biopsy; Mild gastritis. See microscopic description and comment. B. Duodenum polyp, biopsy; Fragments of inflammatory polyp with focal gastric metaplasia. BENITO/ 01/01/24 COMMENT A. The results of immunohistochemistry for Helicobacter pylori will be reported separately ([id number]). MICROSCOPIC DESCRIPTION Slides are reviewed. A. The specimen shows fragments of gastric mucosa with chronic inflammatory cell infiltrates in the lamina propria consisting of lymphocytes and plasma cells, consistent with mild chronic gastritis. GROSS DESCRIPTION A. Received in fixative is one container labeled with the patient's name and designated Gastric body biopsy. The specimen consists of multiple irregular fragments of light emery soft tissue that in aggregate measure 0.9 x 0.5 x 0.1 cm. The specimen is totally submitted in one cassette. B. Received in fixative is one container labeled with the patient's name and designated Duodenal polyp biopsy. The specimen consists of two irregular fragments of light emery soft tissue that in aggregate measure 0.6 x 0.3 x 0.1 cm. The specimen is totally submitted in one cassette. / 12/31/2023 TC:5 CPT: 84521g7
[2023-12-31 09:36] LABS: Bedside Glucose 183 mg/dL (74-106)
[2023-12-31 10:16] VITALS: BP 118/52; BP 144/53; PULSE 68; RESP 16; TEMP 36.3; O2SAT 97
[2023-12-31 10:20] VITALS: BP 124/87; BP 144/53; PULSE 68; RESP 16; O2SAT 98
--- NOTE | 2023-12-31 10:23 | OP.EGD_ITS ---
Patient Name: Lisbeth Craven Procedure Date: 12/31/2023 9:55 AM Date of : 1960 Age: 63 Procedure: Upper GI endoscopy Indications: Epigastric abdominal pain, Functional Dyspepsia Providers: Shaun Suarez DO Referring MD: Shaun Suarez DO Medicines: Monitored Anesthesia Care Patient Profile: This is a 63 year old female. Refer to note in patient chart for documentation of history and physical. Patient has symptoms of chronic abdominal distention. Complications: No immediate complications. Procedure: Pre-Anesthesia Assessment: - Prior to the procedure, a History and Physical was performed, and patient medications and allergies were reviewed. The patient is competent. The risks and benefits of the procedure and the sedation options and risks were discussed with the patient. All questions were answered and informed consent was obtained. Patient identification and proposed procedure were verified by the physician in the pre-procedure area. Mental Status Examination: alert and oriented. Airway Examination: normal oropharyngeal airway and neck mobility. Respiratory Examination: clear to auscultation. CV Examination: normal. Prophylactic Antibiotics: The patient does not require prophylactic antibiotics. Prior Anticoagulants: The patient has taken no anticoagulant or antiplatelet agents. ASA Grade Assessment: II - A patient with mild systemic disease. After reviewing the risks and benefits, the patient was deemed in satisfactory condition to undergo the procedure. The anesthesia plan was to use monitored anesthesia care (MAC). Immediately prior to administration of medications, the patient was re-assessed for adequacy to receive sedatives. The heart rate, respiratory rate, oxygen saturations, blood pressure, adequacy of pulmonary ventilation, and response to care were monitored throughout the procedure. The physical status of the patient was re-assessed after the procedure. After obtaining informed consent, the endoscope was passed under direct vision. Throughout the procedure, the patient's blood pressure, pulse, and oxygen saturations were monitored continuously. The Endoscope was introduced through the mouth, and advanced to the second part of duodenum. The upper GI endoscopy was accomplished without difficulty. The patient tolerated the procedure well. Scope In: 10:05:06 AM Scope Out: 10:10:15 AM Total Procedure Duration Time 0 hours 5 minutes 9 seconds Findings: The examined esophagus was moderately tortuous. Patchy mildly erythematous mucosa without bleeding was found in the gastric body. Biopsies were taken with a cold forceps for histology. Verification of patient identification for the specimen was done. Estimated blood loss was minimal. Biopsies were taken with a cold forceps for Helicobacter pylori testing. Verification of patient identification for the specimen was done. Estimated blood loss was minimal. Two 5 mm flat polyps with no bleeding were found in the duodenal bulb and in the first portion of the duodenum. The polyp was removed with a cold snare. Resection and retrieval were complete. Verification of patient identification for the specimen was done. Estimated blood loss was minimal. Impression: - Tortuous esophagus. - Erythematous mucosa in the gastric body. Biopsied. - Two duodenal polyps. Resected and retrieved. Recommendation: - Discharge patient to home. - Resume previous diet. - Continue present medications. - Await pathology results. -Gastric emptying study Procedure Code(s): --- Professional --- 00126, Esophagogastroduodenoscopy, flexible, transoral; with removal of tumor(s), polyp(s), or other lesion(s) by snare technique 82879, 59,51, Esophagogastroduodenoscopy, flexible, transoral; with biopsy, single or multiple CPT copyright 2021 [employer]. All rights reserved. The codes documented in this report are preliminary and upon claim inspector review may be revised to meet current compliance requirements. Shaun Suarez DO 12/31/2023 10:23:15 AM This report has been signed electronically. Number of Addenda: 0 Note Initiated On: 12/31/2023 9:55 AM
--- NOTE | 2023-12-31 10:23 | OP.CCLET_ITS ---
12/31/2023 Kimi López [facility] [address] [place] [address] Re : Upper GI endoscopy procedure for Lisbeth Craven Dear Dr. López This procedure was performed on Sunday, December 31, 2023. My impressions and recommendations are as follows: Impressions : - Tortuous esophagus. - Erythematous mucosa in the gastric body. Biopsied. - Two duodenal polyps. Resected and retrieved. Recommendations : - Discharge patient to home. - Resume previous diet. - Continue present medications. - Await pathology results. -Gastric emptying study My findings are described in the full procedure note, which is enclosed. If I can be of further assistance, please feel free to contact me at . Sincerely, Shaun Suarez, 12/31/2023 10:23:15 AM This report has been signed electronically.
[2023-12-31 10:25] VITALS: BP 120/61; BP 144/53; PULSE 68; RESP 16; O2SAT 98
[2023-12-31 10:30] VITALS: BP 138/50; BP 144/53; PULSE 67; RESP 16; TEMP 36.1; O2SAT 96
[2023-12-31 10:56] VITALS: BP 144/53
== END 2023-12-31 11:19 | disposition home or self-care (01) ==
LOC: EN 08:24 → AC 08:25
PROVIDERS: PCP Internal Medicine; Referring Provider Internal Medicine; Visit Provider Internal Medicine Gastroenterology
PROC: 0DJ08ZZ Inspection of Upper Intestinal Tract, Via Natural or Artificial Opening Endoscopic (ICD-10-PCS; CPT 43235; principal; 2023-12-31 09:25)
DX: C18.2 Malignant neoplasm of ascending colon (principal); M06.9 Rheumatoid arthritis, unspecified; E11.9 Type 2 diabetes mellitus without complications; K31.7 Polyp of stomach and duodenum; K29.70 Gastritis, unspecified, without bleeding; R10.13 Epigastric pain; R07.9 Chest pain, unspecified; I25.10 Atherosclerotic heart disease of native coronary artery without angina pectoris; Z95.5 Presence of coronary angioplasty implant and graft; E03.9 Hypothyroidism, unspecified; I10 Essential (primary) hypertension; D50.9 Iron deficiency anemia, unspecified
CPT/HCPCS: 43251; 43239; A4216; J0585; J3490; 82962; 88305; 88342; J7120; J2405

== ENCOUNTER → 2024-01-06 | Outpatient (CLI) | payer MEDICAID, SELFPAY ==
[2023-11-24 08:48] VITALS: BMI 28.5
[2024-01-06 12:34] LABS: Hematocrit 38.8 % (37-47); Hemoglobin 12.2 g/dL (12.0-15.0); Mean Corp Hgb Conc 31.4 g/dL (32-36); Mean Corpuscular Hgb 27.2 pg (27.0-32.0); Mean Corpuscular Volume 86.6 fL (81-99); Mean Platelet Vol. 10.3 fl (6.2-12.0); Platelet Count 296 K/mm3 (150-450); RBC Distribution Width CV 13.1 % (11.6-14.6); Red Blood Count 4.48 M/mm3 (4.2-5.4)
[2024-01-06 12:58] LABS: Vitamin D,25 Hydroxy 29.8 ng/mL
[2024-01-06 13:44] LABS: Creatinine, Serum 1.41 mg/dL (0.55-1.02); EST Glomerular Filtration Rate 40 mL/min (>60); Est Glom Filt Rate - Afr Amer 48 mL/min (>60); Thyroid Stim Hormone (TSH) 1.79 uIU/mL (0.358-3.74)
== END | disposition home or self-care (01) ==
LOC: MTLAB 10:50
PROVIDERS: PCP Internal Medicine; Referring Provider Internal Medicine Rheumatology; Visit Provider Internal Medicine Rheumatology
DX: M85.80 Other specified disorders of bone density and structure, unspecified site (principal); N18.31 Chronic kidney disease, stage 3a; M79.7 Fibromyalgia; Z79.52 Long term (current) use of systemic steroids; R53.83 Other fatigue; R68.89 Other general symptoms and signs
CPT/HCPCS: 36415; 82306; 82565; 84443; 85027

== ENCOUNTER → 2024-01-27 | Outpatient (CLI) | payer MEDICAID, SELFPAY ==
[2023-11-24 08:48] VITALS: BMI 28.5
[2024-01-27 12:00] LABS: Absolute Lymphocyte Count 1.79 X10^3/uL (0.83-4.51); Absolute Neutrophil Count 8.2 X10^3/uL (2.0-7.7); Basophil# 0.13 X10^3/uL; Basophil% 1.1 % (0-1); Eosinophil# 0.38 X10^3/uL; Eosinophils% 3.3 % (0-5); Hematocrit 37.2 % (37-47); Hemoglobin 11.8 g/dL (12.0-15.0); Lymphocyte # 1.79 X10^3/ul (0.83-4.51); Lymphocyte % 15.7 % (19-41); Mean Corp Hgb Conc 31.7 g/dL (32-36); Mean Corpuscular Volume 85.1 fL (81-99); Mean Platelet Vol. 10.4 fl (6.2-12.0); NRBC Flagged by Analyzer 0 % (0-5); Neutrophil # 8.22 X10^3/uL (2.7-7.7); Neutrophil % 72.5 % (47-70); Platelet Count 278 K/mm3 (150-450); RBC Distribution Width CV 12.8 % (11.6-14.6); RBC Distribution Width SD 39.8 fl (35.1-43.9); Red Blood Count 4.37 M/mm3 (4.2-5.4); White Blood Count 11.4 K/mm3 (4.4-11.0)
[2024-01-27 13:26] LABS: Vitamin D,25 Hydroxy 33.2 ng/mL
[2024-01-27 13:30] LABS: ALB/GLOB Ratio 0.8 RATIO (0.9-2.4); AST(SGOT) 16 U/L (15-37); Alanine Aminotransfer ALT/SGPT 21 U/L (13-56); Albumin, Serum 3.4 g/dL (3.2-5.0); Alkaline Phosphatase 80 U/L (45-117); Anion Gap 7 (5-15); BUN 29 mg/dL (7-18); BUN/Creat Ratio 18.6 RATIO (10-20); Calcium,Total 9.9 mg/dL (8.5-10.1); Chloride 108 mmol/L (98-107); Cholesterol 108 mg/dL (200); Creatinine, Serum 1.56 mg/dL (0.55-1.02); EST Glomerular Filtration Rate 36 mL/min (>60); Est Glom Filt Rate - Afr Amer 43 mL/min (>60); Free T3 2.9 pg/mL (2.18-3.98); Globulin 4.1 g/dL (2.2-4.2); Glucose 178 mg/dL (74-106); High Density Lipoprotein 53 mg/dL; Potassium 3.8 mmol/L (3.5-5.1); Protein, Total 7.5 g/dL (6.4-8.2); Sodium Level 139 mmol/L (136-145); T4 Free Direct 1.34 ng/dL (0.76-1.46); Thyroid Stim Hormone (TSH) 1.04 uIU/mL (0.358-3.74); Triglycerides 123 mg/dL; Very Low Density Lipoprotein 25 mg/dL (5-40)
[2024-01-27 14:12] LABS: Hemoglobin A1c 7.1 % (3.8-5.6)
== END | disposition home or self-care (01) ==
LOC: MTLAB 09:43
PROVIDERS: PCP Internal Medicine; Referring Provider Internal Medicine; Visit Provider Internal Medicine
DX: I12.9 Hypertensive chronic kidney disease with stage 1 through stage 4 chronic kidney disease, or unspecified chronic kidney disease (principal); M06.9 Rheumatoid arthritis, unspecified; E11.22 Type 2 diabetes mellitus with diabetic chronic kidney disease; N18.31 Chronic kidney disease, stage 3a; Z13.220 Encounter for screening for lipoid disorders; I25.10 Atherosclerotic heart disease of native coronary artery without angina pectoris; D64.9 Anemia, unspecified; E55.9 Vitamin D deficiency, unspecified
CPT/HCPCS: 36415; 80053; 80061; 82306; 83036; 84439; 84443; 84481; 85025

== ENCOUNTER 2024-02-16 13:51 | Emergency (ER) | payer MEDICAID, SELFPAY ==
[2023-11-24 08:48] VITALS: BMI 28.5
[2024-02-16 13:51] VITALS: BP 120/52; PULSE 63; RESP 16; TEMP 36.3; O2SAT 98
--- NOTE | 2024-02-16 14:39 | EDS_ITS ---
HPI History of Present Illness Chief Complaint: General Illness [facility] Medical History Acid reflux Acute blood loss anemia Ambulates with cane Anemia Anxiety Cancer Cardiology follow-up encounter Carpal tunnel syndrome Chest pain CKD (chronic kidney disease), stage III Diabetes Dietary restriction Erythromelalgia Fibromyalgia Foot fracture, left Foot fracture, right Former smoker Gastric reflux Gastroenteritis Hepatitis History of chronic kidney disease History of COVID-19 History of diabetes mellitus History of echocardiogram History of edema History of heart attack History of irregular heartbeat History of renal disease History of steroid therapy Hypertension Infectious mononucleosis Injury of head and neck Leg cramps Low iron Measles Migraines Neuropathy Osteopenia Post-menopausal Restless legs Rheumatoid arthritis Seasonal allergies Shingles Shortness of breath on exertion Small fiber neuropathy Thyroid disease Uses wheelchair Walker as ambulation aid Home Medications nystatin 100,000 unit/gram topical powder (Nystop) 100,000 gm topical PRN PRN Skin Cleansing 04/02/22 [History Last Taken Unknown] biotin 5,000 mcg disintegrating tablet 15,000 mcg PO DAILY SUPPLEMENT 08/26/22 [History Last Taken 12/30/23] vitamin B complex (B Complex-Vitamin B12 tablet) 1 tab PO DAILY SUPPLEMENT 08/26/22 [History Last Taken 12/30/23] sennosides 8.6 mg-docusate sodium 50 mg tablet (Stool Softener-Stimulant Laxative) 2 tab PO BID PRN PRN Constipation #0 tabs 11/27/22 [Rx Last Taken 11/26/23] fluticasone propionate 50 mcg/actuation nasal spray,suspension 1 spray intranasal BID PRN Sinus Symptoms 12/05/22 [History Last Taken 12/04/22] valacyclovir 1 gram tablet (Valtrex) 1,000 mg PO DAILY PRN outbreak #20 tabs 04/03/23 [Rx Last Taken Unknown] hydroxychloroquine 200 mg tablet 200 mg PO BID RA #60 tabs 05/27/23 [Rx Last Taken 12/30/23] rosuvastatin 10 mg tablet (Crestor) 20 mg PO QHS CHOLESTEROL 06/11/23 [History Last Taken 12/30/23] levothyroxine 88 mcg tablet (Euthyrox) 88 mcg PO DAILY THYROID #90 tabs 09/03/23 [Rx Last Taken 12/31/23] calcium carbonate (Calcium 600) 600 mg PO DAILY 09/10/23 [History Last Taken 12/30/23] amlodipine 10 mg tablet 10 mg PO BID BP #90 tabs 10/01/23 [Rx Last Taken 12/31/23] ondansetron HCl 8 mg tablet 8 mg PO Q6H PRN nausea and vomiting #20 tabs 10/22/23 [Rx Last Taken 11/26/23] aspirin 81 mg capsule 81 mg PO DAILY 11/14/23 [History Last Taken 12/30/23] famotidine 40 mg tablet 40 mg PO QHS 11/14/23 [History Last Taken 12/30/23] isosorbide mononitrate 30 mg tablet,extended release 24 hr 30 mg PO .NOON 11/14/23 [History Last Taken 12/30/23] venlafaxine 150 mg capsule,extended release 24 hr (Effexor XR) 150 mg PO DAILY #90 caps 11/21/23 [Rx Last Taken 12/30/23] venlafaxine 75 mg tablet 75 mg PO DAILY #90 tabs 11/21/23 [Rx Last Taken 12/30/23] clopidogrel 75 mg tablet 75 mg PO DAILY BLOOD THINNER #90 tabs 11/24/23 [Rx Last Taken 12/30/23] glipizide 10 mg tablet, extended release 24 hr 10 mg PO BID DIABETIC #180 tabs 12/10/23 [Rx Last Taken 12/30/23] lisinopril 5 mg tablet 5 mg PO QHS BP #90 tabs 12/10/23 [Rx Last Taken 12/31/23] zinc gluconate 50 mg tablet 50 mg PO DAILY 01/28/24 [History Last Taken Unknown] ascorbic acid (vitamin C) 500 mg capsule mg PO QDAY PRN 02/14/24 [History Last Taken Unknown] carvedilol 3.125 mg tablet 3.125 mg PO BID BP/HEART 02/14/24 [History Last Taken Unknown] cholecalciferol (vitamin D3) 625 mcg (25,000 unit) capsule 625 mcg PO QWEEK 02/14/24 [History Last Taken Unknown] ondansetron 8 mg disintegrating tablet 8 mg PO .every 6 hours prn PRN nausea and vomiting #30 tabs 02/14/24 [Rx Last Taken Unknown] Allergy/AdvReac Type Severity Reaction Status Date / Time iron Allergy Severe Other Verified 02/16/24 16:02 Iodinated Contrast Media Allergy Intermediate Hives Verified 02/16/24 16:02 [IVP dye] Seasonal Allergies: Uncoded Allergy Mild Hives Verified 02/16/24 16:02 levofloxacin [From Levaquin] Allergy PT UNSURE Verified 02/16/24 16:02 OF REACTION liraglutide [From Victoza] Allergy dehydration Verified 02/16/24 16:02 - ended up in hospital methylprednisolone AdvReac Intermediate HALLUCINATI Verified 02/16/24 16:02 [From Solu-Medrol] ONS adhesive AdvReac Rash Verified 02/16/24 16:02 hydrochlorothiazide AdvReac pt can tke Verified 02/16/24 16:02 tablet, but not capsule hydrocodone AdvReac Itching Verified 02/16/24 16:02 oxycodone [From Percocet] AdvReac Itching Verified 02/16/24 16:02 Family History Grandfather Cancer Heart disease Father Cancer Heart disease Diabetes Uncle Cancer Aunt Cancer Brother Heart disease Surgical History H/O heart artery stent History of cardiac catheterization History of colectomy History of esophagogastroduodenoscopy (EGD) History of lumbar laminectomy Hx of appendectomy Hx of cholecystectomy Hx of colonoscopy Hx of fusion of cervical spine Hx of release of tendon Hx of tonsillectomy Social History household members: family housing: house number of children: 0 current occupational status: disabled Smoking Status: Former smoker alcohol intake: never substance use type: does not use caffeine: Yes Type: carbonated beverages and tea what type of physical activity do you participate in: none seatbelt use: always do you feel safe at home: Yes additional social history: EXAM Physical Exam Const Vital Signs: 02/16/24 13:51 02/16/24 14:50 02/16/24 15:51 Temperature 97.4 F L Temperature Source Temporal Pulse Rate 63 62 Respiratory Rate 16 20 H Respiratory Effort Normal Non-Labored Respiratory Pattern Normal Blood Pressure 120/52 L 130/70 H Blood Pressure Mean 74 90 Pulse Ox 98 98 Oxygen Delivery Method Room Air Room Air 02/16/24 17:00 Temperature 98.7 F Temperature Source Temporal Pulse Rate 65 Respiratory Rate 20 H Respiratory Effort Respiratory Pattern Blood Pressure 115/45 L Blood Pressure Mean 68 Pulse Ox 96 Oxygen Delivery Method Room Air [facility] [place] Medical decision making narrative: HISTORY OF PRESENT ILLNESS: 63-year-old female presents with Headache, nausea vomiting achy joints constipation cough fever. Notes the symptoms started 3 days ago. Have been progressive. She notes she been feeling ill running fevers. No recent travel or sick contacts. She denies shortness of breath but notes cough and fever. She also notes some constipation. She denies any melena or hematochezia. Denies any other bleeding diathesis. She notes nausea and several episodes of nonbloody nonbilious vomitus since onset of symptoms. She is concerned that she may have pneumonia or COVID. Patient denies sudden onset or thunderclap headache, denies maximal intensity within 1 minute, vomiting, neck pain, stiffness, changes in vision, fever, history malignancy, syncope, or seizures associated with headache. REVIEW OF SYSTEMS: Pertinent positives: Headache, nausea vomiting, myalgias, constipation, cough and fever, Pertinent negatives: Focal weakness, syncope, leg swelling, sick contacts PHYSICAL EXAM: Nursing triage notes reviewed, Vital signs reviewed Constitutional: [facility] HENT: MMM Eyes: Pupils equal round and reactive to light, Extraocular muscles intact Neck: No stridor, no JVD, full neck ROM Lungs: Clear to auscultation, No wheezing or rales. No increased work of breathing, no conversational dyspnea, no accessory muscle use, no nasal flaring. No respiratory distress noted Heart: Regular rate and rhythm, No murmurs, No rubs and No gallops, 2+ distal pulses (radial, femoral, posterior tibial) in all extremities Abdomen: Soft, there is no tenderness, rigidity, rebound or guarding, no obvious peritoneal signs, no palpable pulsatile abdominal masses, no auscultated abdominal bruit : No CVAT Extremities: No edema Neuro: Alert and oriented x3, neuro exam at baseline, cranial nerves II through XII are intact. No pain with extraocular muscle movement. There is negative test of skew. 5 of 5 strength in upper and lower extremities in flexion extension. Intact sensation to light touch in upper and lower extremity dermatomes. No truncal or extremity ataxia. No dysdiadochokinesia. Normal gait. 2+ reflexes in upper and lower extremities. No meningeal signs. Negative Babinski. NIH of 0. Skin: No rash or lesions noted MEDICAL DECISION MAKING: Chief Complaint: No recent ED visits External records reviewed: Prior imaging reviewed: MRI from February 2023 shows minor nonspecific periventricular white matter disease without evidence of acute infarct. No evidence of obstructive hydrocephalus or mass noted Factors affecting care: CKD, colon cancer, type 2 diabetes, gastroparesis, CAD, hypertension Social determinants of health: none History obtained from others: none Consults: none] MDM Narrative: The patient was hemodynamically stable, afebrile, nontoxic-appearing. I considered the following differential diagnosis: Viral illness, pneumonia, ICH, arrhythmia, electrolyte disturbances, dehydration, acute kidney injury ALL IMAGES (IF OBTAINED) HAVE BEEN PERSONALLY REVIEWED AND INTERPRETED BY MYSELF. EKG with normal sinus rhythm, left axis deviation, no ischemic changes right bundle branch block consistent with prior, no obvious STEMI High-sensitivity troponin is negative, no evidence of myocardial ischemia CMP with baseline CKD, no other significant electrolyte abnormalities, no evidence of metabolic acidosis or endorgan hypoperfusion LFTs without evidence of hepatobiliary obstruction Urinalysis shows no evidence of urinary inflammation suggestive of UTI Chest x-ray read and reviewed myself shows evidence of a left lower lobe infiltrate concerning for pneumonia given cough and fever history The synthesis of the patient's history, physical exam, labs images suggest commune acquired pneumonia. She was ambulated here in the ED without hypoxia. He is approved for a course of oral antibiotics. Strict return precautions were discussed. The patient and/or family, caregivers express understanding. The patient and/or family, caregivers agrees with the plan. Shared decision making: I will have a discussion with the patient and or visitors regarding risk/benefits of further testing or admission. They will be made aware of of the risk/benefits inherent in this decision they will be given the opportunity to voice understanding. Total critical care time today provided was at least 0 minutes. This excludes separately billable procedures. Critical care time (if documented) is secondary to the patient having high probability of clinically significant/life threatening deterioration in the patient's condition which required my urgent intervention. Impression: 1. Community-acquired pneumonia 2. CKD 3. Chronic anemia Dispo: This note was generated with Dragon dictation software. It may contain incorrect words, spelling, and punctuation that were not noted in review of the chart prior to signing. Lab Data Labs: Laboratory Results - last 24 hr 02/16/24 02/16/24 15:00 15:55 WBC 7.9 RBC 3.96 L Hgb 10.6 L Hct 33.5 L MCV 84.6 MCH 26.8 L MCHC 31.6 L RDW Std Deviation 38.1 RDW Coeff of Emilio 12.5 Plt Count 186 MPV 10.1 Immature Gran % (Auto) 0.400 Neut % (Auto) 69.2 Lymph % (Auto) 14.[address] [place] % (Auto) 13.5 H Eos % (Auto) 1.7 Baso % (Auto) 0.8 Absolute Neuts (auto) 5.5 Absolute Lymphs (auto) 1.13 Nucleated RBC % 0 Sodium 136 Potassium 4.2 Chloride 104 Carbon Dioxide 27.0 Anion Gap 5 BUN 19 H Creatinine 1.58 H Estim Creat Clear Calc 42.19 Est GFR (MDRD) Af Amer 42 L Est GFR (MDRD) Non-Af 35 L BUN/Creatinine Ratio 12.0 Glucose 179 H Calcium 9.3 Total Bilirubin 0.30 AST 18 ALT 20 Alkaline Phosphatase 74 Troponin I High Sens 21 Total Protein 6.9 Albumin 2.7 L Globulin 4.2 Albumin/Globulin Ratio 0.6 L Lipase 32 Urine Color Yellow Urine Clarity Clear Urine pH 5.0 Ur Specific [place] 1.020 Urine Protein 100 H Urine Glucose (UA) Normal Urine Ketones Negative Urine Occult Blood Negative Urine Nitrite Negative Urine Bilirubin Negative Urine Urobilinogen Normal Ur Leukocyte Esterase 100 H Urine RBC 0 SEEN Urine WBC 0-5 SEEN Ur Squamous Epith Cells 0 SEEN Urine Bacteria RARE Urine Mucus 0 SEEN Radiography Diagnostic Testing: Clinical Impression(s) from Imaging Studies Brain CT 02/16/24 14:49 IMPRESSION: Normal unenhanced CT scan of the brain. Electronically Signed: Constantin Gilliam MD at 16:33 EDT , Chest X-Ray 02/16/24 16:15 IMPRESSION: Left mid lung pneumonia Electronically Signed: Constantin Gilliam MD at 16:30 EDT , Discharge Plan Triage Chief Complaint: General Illness ED Provider: Alfredo Madrigal Dx/Rx/DC Orders Prescriptions: No Action nystatin [Nystop] 100,000 unit/gram powder 100,000 gm topical PRN PRN (Reason: Skin Cleansing) Patient Comments: APPLY TOPICALLY EVERY 8 HOURS biotin 5,000 mcg tablet,disintegrating 15,000 mcg PO DAILY vitamin B complex [B Complex-Vitamin B12] Tablet 1 tab PO DAILY calcium carbonate [Calcium 600] 600 mg calcium (1,500 mg) tablet 600 mg PO DAILY glipizide 10 mg tablet extended release 24hr 10 mg PO BID Qty: 180 3RF lisinopril 5 mg tablet 5 mg PO QHS Qty: 90 3RF zinc gluconate 50 mg tablet 50 mg PO DAILY cholecalciferol (vitamin D3) 625 mcg (25,000 unit) capsule 625 mcg PO QWEEK ascorbic acid (vitamin C) 500 mg capsule PO QDAY PRN ondansetron 8 mg tablet,disintegrating 8 mg PO .every 6 hours prn PRN (Reason: nausea and vomiting) Qty: 30 0RF rosuvastatin [Crestor] 10 mg tablet 20 mg PO QHS carvedilol 3.125 mg tablet 3.125 mg PO BID sennosides-docusate sodium [Stool Softener-Stimulant Laxat] 8.6-50 mg Tablet 2 tab PO BID PRN PRN (Reason: Constipation) Qty: 0 0RF fluticasone propionate 50 mcg/actuation [place],Suspension 1 spray INTRANASAL BID PRN (Reason: Sinus Symptoms) Rx Instructions: administer into each nostril isosorbide mononitrate 30 mg tablet extended release 24 hr 30 mg PO .NOON aspirin 81 mg capsule 81 mg PO DAILY famotidine 40 mg tablet 40 mg PO QHS valacyclovir [Valtrex] 1 gram tablet 1,000 mg PO DAILY PRN (Reason: outbreak) Qty: 20 1RF Rx Instructions: Take 1 tab daily x5 days as needed for outbreak. hydroxychloroquine 200 mg tablet 200 mg PO BID Qty: 60 1RF levothyroxine [Euthyrox] 88 mcg tablet 88 mcg PO DAILY Qty: 90 3RF amlodipine 10 mg tablet 10 mg PO BID Qty: 90 3RF ondansetron HCl 8 mg tablet 8 mg PO Q6H PRN (Reason: nausea and vomiting) Qty: 20 0RF venlafaxine [Effexor XR] 150 mg capsule,extended release 24hr 150 mg PO DAILY Qty: 90 1RF venlafaxine 75 mg tablet 75 mg PO DAILY Qty: 90 1RF clopidogrel 75 mg tablet 75 mg PO DAILY Qty: 90 3RF Primary Care Provider: Kimi López Referrals: Kimi López MD [Primary Care Provider] -
--- NOTE | 2024-02-16 14:49 | CT_ITS ---
STUDY: CT BRAIN WITHOUT CONTRAST REASON FOR EXAM: Female, 63 years old. headache r/o ICH RADIATION DOSAGE (If Supplied By Facility): CTDIvol = ( 44.99 ) mGy, DLP = ( 796.11 ) mGycm TECHNIQUE: Transaxial CT imaging of the brain was performed without administration of intravenous contrast material. Individualized dose optimization techniques were used for this CT. COMPARISON: MRI 02/21/2023 FINDINGS: Normal soft tissue structures. Normal calvarium. Normal size ventricles and extra-axial spaces for the patient''s age. Normal white matter tracts of the cerebral hemispheres. Normal basal ganglia and thalami. Normal brainstem. Normal cerebellum. There is no intracranial hemorrhage. There are no findings of an acute ischemic infarction. Normal visualized paranasal sinuses. CT/Brain/Head without Contrast IMPRESSION: Normal unenhanced CT scan of the brain. Electronically Signed: Constantin Gilliam MD at 16:33 EDT ,
--- NOTE | 2024-02-16 14:50 | EKG12_ITS ---
Test Reason : GENERAL Blood Pressure : / mmHG Vent. Rate : 058 BPM Atrial Rate : 058 BPM P-R Int : 252 ms QRS Dur : 138 ms QT Int : 436 ms P-R-T Axes : 040 -60 032 degrees QTc Int : 428 ms Sinus bradycardia with 1st degree A-V block Possible Left atrial enlargement Left axis deviation Right bundle branch block Possible Lateral infarct , age undetermined Inferior infarct , age undetermined Abnormal ECG Confirmed by Artem Sanders ([id number]), editor school photograph RANDA GREEN ([id number]) on 02/17/2024 9:59:49 AM Referred By: Confirmed By:Artem Sanders
[2024-02-16 15:15] LABS: Absolute Lymphocyte Count 1.13 X10^3/uL (0.83-4.51); Absolute Neutrophil Count 5.5 X10^3/uL (2.0-7.7); Basophil# 0.06 X10^3/uL; Basophil% 0.8 % (0-1); Eosinophil# 0.13 X10^3/uL; Eosinophils% 1.7 % (0-5); Hematocrit 33.5 % (37-47); Hemoglobin 10.6 g/dL (12.0-15.0); Lymphocyte # 1.13 X10^3/ul (0.83-4.51); Lymphocyte % 14.4 % (19-41); Mean Corp Hgb Conc 31.6 g/dL (32-36); Mean Corpuscular Hgb 26.8 pg (27.0-32.0); Mean Corpuscular Volume 84.6 fL (81-99); Mean Platelet Vol. 10.1 fl (6.2-12.0); Monocyte# 1.06 X10^3/uL; Monocyte% 13.5 % (0-10); NRBC Flagged by Analyzer 0 % (0-5); Neutrophil # 5.46 X10^3/uL (2.7-7.7); Neutrophil % 69.2 % (47-70); Platelet Count 186 K/mm3 (150-450); RBC Distribution Width CV 12.5 % (11.6-14.6); RBC Distribution Width SD 38.1 fl (35.1-43.9); Red Blood Count 3.96 M/mm3 (4.2-5.4); White Blood Count 7.9 K/mm3 (4.4-11.0)
[2024-02-16 15:51] VITALS: BP 130/70; PULSE 62; RESP 20; O2SAT 98
[2024-02-16] MEDS: 0.9% Normal Saline (1000mL) 1,000 ML 1000 ML IV (15:58)
[2024-02-16] MEDS: Ketorolac 15 MG/ML Vial IV (15:59)
[2024-02-16] MEDS: Ondansetron 4 MG/2 ML Vial IV (15:59)
[2024-02-16 16:07] VITALS: BMI 29.3
--- NOTE | 2024-02-16 16:15 | RAD_ITS ---
STUDY: X-RAY CHEST REASON FOR EXAM: Female, 63 years old. cough TECHNIQUE: Single AP portable view of the chest. COMPARISON: 11/07/2022. FINDINGS: Normal lung volumes. There is left perihilar infiltrate extending into the left midlung. Findings are consistent with left mid lung pneumonia. Normal size heart. Normal mediastinum and raffaele. Normal visualized pulmonary arteries. Normal visualized aortic arch and descending thoracic aorta. There are diffuse degenerative changes of the visualized thoracic spine. Normal visualized ribs, clavicles, and shoulders. There is no demonstrated abnormality of the visualized soft tissue structures of the upper abdomen. RAD/Chest 1 View (Portable) IMPRESSION: Left mid lung pneumonia Electronically Signed: Constantin Gilliam MD at 16:30 EDT ,
[2024-02-16 16:16] LABS: Mucous, Urine 0 SEEN /hpf (<or=2+); Red Blood Cells-Urine 0 SEEN /hpf (0-5); Squamous Epithelial Cells - UA 0 SEEN /hpf (5-10)
[2024-02-16 16:18] LABS: Color, Urine Yellow (Yellow); Glucose, Dipstick Normal (Normal); Ketone-Dipstick Negative (Negative); Leukocyte Esterase-Dipstick 100 /ul (Negative); Nitrite-Dipstick Negative (Negative); Occult Blood-Urine Negative /ul (Negative); Protein-Dipstick 100 mg/dl (Negative); Urine Bilirubin Dipstick Negative (Negative); Urine Clarity Clear (Clear); Urine Urobilinogen Normal (Normal)
[2024-02-16 16:25] LABS: ALB/GLOB Ratio 0.6 RATIO (0.9-2.4); AST(SGOT) 18 U/L (15-37); Alanine Aminotransfer ALT/SGPT 20 U/L (13-56); Albumin, Serum 2.7 g/dL (3.2-5.0); Alkaline Phosphatase 74 U/L (45-117); Anion Gap 5 (5-15); BUN 19 mg/dL (7-18); Calcium,Total 9.3 mg/dL (8.5-10.1); Chloride 104 mmol/L (98-107); Creatinine, Serum 1.58 mg/dL (0.55-1.02); EST Glomerular Filtration Rate 35 mL/min (>60); Est Glom Filt Rate - Afr Amer 42 mL/min (>60); Estimated Creatinine Clearance 42.19 ml/min; Globulin 4.2 g/dL (2.2-4.2); Glucose 179 mg/dL (74-106); Lipase 32 U/L (13-75); Potassium 4.2 mmol/L (3.5-5.1); Protein, Total 6.9 g/dL (6.4-8.2); Sodium Level 136 mmol/L (136-145); Troponin-I HS 21 pg/mL (3.0-54.0)
[2024-02-16 16:26] LABS: Bacteria RARE /hpf (None Seen); White Blood Cells 0-5 SEEN /hpf (0-5)
[2024-02-16 16:32] VITALS: O2SAT 96
[2024-02-16 17:00] VITALS: BP 115/45; PULSE 65; RESP 20; TEMP 37.1; O2SAT 96
[2024-02-16] MEDS: Amox/Clavulanate 875 MG Tablet PO (18:00)
[2024-02-16 18:07] VITALS: BP 116/52; PULSE 74; RESP 18; TEMP 37; O2SAT 97
== END 2024-02-16 18:09 | disposition home or self-care (01) ==
PROVIDERS: Emergency Provider Emergency Medicine; PCP Internal Medicine; Visit Provider Emergency Medicine
DX: J18.9 Pneumonia, unspecified organism (principal); C18.9 Malignant neoplasm of colon, unspecified; E11.43 Type 2 diabetes mellitus with diabetic autonomic (poly)neuropathy; E11.22 Type 2 diabetes mellitus with diabetic chronic kidney disease; I12.9 Hypertensive chronic kidney disease with stage 1 through stage 4 chronic kidney disease, or unspecified chronic kidney disease; N18.9 Chronic kidney disease, unspecified; I25.10 Atherosclerotic heart disease of native coronary artery without angina pectoris; Z87.891 Personal history of nicotine dependence; D64.9 Anemia, unspecified; R51.9 Headache, unspecified; I25.2 Old myocardial infarction; Z79.899 Other long term (current) drug therapy; Z79.82 Long term (current) use of aspirin; Z79.890 Hormone replacement therapy; Z79.84 Long term (current) use of oral hypoglycemic drugs
CPT/HCPCS: 70450; 71045; 80053; 81001; 83690; 84484; 85025; 87631; 93005; 96361; 96374; 96375; 99284; J7030; A4216; J2405

== ENCOUNTER → 2024-03-04 | Outpatient (CLI) | payer MEDICAID, SELFPAY ==
[2023-11-24 08:48] VITALS: BMI 28.5
--- NOTE | 2024-03-04 12:00 | RAD_ITS ---
STUDY: X-RAY CHEST REASON FOR EXAM: Female, 63 years old. Follow-up of pneumonia. TECHNIQUE: Frontal and lateral views of the chest. COMPARISON: February 16, 2024 FINDINGS: Mild hyperinflation with clearing of the previously described left upper lobe opacity. There is no demonstrated pleural abnormality. Borderline cardiomegaly unchanged. Normal mediastinum and raffaele. Normal visualized pulmonary arteries. Stable aortic tortuosity. Thoracic osteopenia with diffuse moderate spondylosis. Normal visualized ribs, clavicles, and shoulders. No abnormality of the visualized soft tissue structures of the upper abdomen. RAD/Chest PA and Lateral IMPRESSION: Borderline cardiomegaly with hyperinflation and no acute or active cardiopulmonary disease. Electronically Signed: Sukhwinder Doyle MD at 13:32 EDT ,
== END | disposition home or self-care (01) ==
LOC: RAD 11:55
PROVIDERS: PCP Internal Medicine; Referring Provider Internal Medicine; Visit Provider Internal Medicine
DX: N18.31 Chronic kidney disease, stage 3a (principal)
CPT/HCPCS: 71046

== ENCOUNTER → 2024-03-24 | Outpatient (CLI) | payer MEDICAID, SELFPAY ==
[2023-11-24 08:48] VITALS: BMI 28.5
== END | disposition home or self-care (01) ==
LOC: LABSPEC 16:12
PROVIDERS: PCP Internal Medicine; Referring Provider Otolaryngology Otolaryngology/Facial Plastic Surgery; Visit Provider Otolaryngology Otolaryngology/Facial Plastic Surgery
DX: J32.9 Chronic sinusitis, unspecified (principal)
CPT/HCPCS: 87070; 87205

== ENCOUNTER → 2024-04-22 | Outpatient (CLI) | payer MEDICAID, SELFPAY ==
[2023-11-24 08:48] VITALS: BMI 28.5
[2024-04-22 10:05] LABS: Absolute Lymphocyte Count 1.79 X10^3/uL (0.83-4.51); Absolute Neutrophil Count 6.5 X10^3/uL (2.0-7.7); Basophil# 0.14 X10^3/uL; Basophil% 1.5 % (0-1); Eosinophil# 0.26 X10^3/uL; Eosinophils% 2.8 % (0-5); Hematocrit 37.8 % (37-47); Lymphocyte # 1.79 X10^3/ul (0.83-4.51); Mean Corp Hgb Conc 31.7 g/dL (32-36); Mean Corpuscular Hgb 26.9 pg (27.0-32.0); Mean Corpuscular Volume 84.8 fL (81-99); Mean Platelet Vol. 10.1 fl (6.2-12.0); Monocyte# 0.63 X10^3/uL; Monocyte% 6.7 % (0-10); NRBC Flagged by Analyzer 0 % (0-5); Neutrophil # 6.54 X10^3/uL (2.7-7.7); Neutrophil % 69.4 % (47-70); Platelet Count 243 K/mm3 (150-450); RBC Distribution Width CV 14.9 % (11.6-14.6); RBC Distribution Width SD 45.7 fl (35.1-43.9); Red Blood Count 4.46 M/mm3 (4.2-5.4); White Blood Count 9.4 K/mm3 (4.4-11.0)
[2024-04-22 10:20] LABS: Vitamin D,25 Hydroxy 30.3 ng/mL
[2024-04-22 10:35] LABS: ALB/GLOB Ratio 0.8 RATIO (0.9-2.4); AST(SGOT) 15 U/L (15-37); Alanine Aminotransfer ALT/SGPT 23 U/L (13-56); Albumin, Serum 3.3 g/dL (3.2-5.0); Alkaline Phosphatase 84 U/L (45-117); Anion Gap 8 (5-15); BUN 25 mg/dL (7-18); BUN/Creat Ratio 20.8 RATIO (10-20); Calcium,Total 9.7 mg/dL (8.5-10.1); Chloride 109 mmol/L (98-107); Cholesterol 139 mg/dL (200); EST Glomerular Filtration Rate 48 mL/min (>60); Est Glom Filt Rate - Afr Amer 58 mL/min (>60); Free T3 2.6 pg/mL (2.18-3.98); Globulin 4.4 g/dL (2.2-4.2); Glucose 142 mg/dL (74-106); High Density Lipoprotein 73 mg/dL; Potassium 3.9 mmol/L (3.5-5.1); Protein, Total 7.7 g/dL (6.4-8.2); Sodium Level 142 mmol/L (136-145); T4 Free Direct 1.05 ng/dL (0.76-1.46); Triglycerides 104 mg/dL; Very Low Density Lipoprotein 21 mg/dL (5-40)
[2024-04-22 11:52] LABS: Hemoglobin A1c 6.9 % (3.8-5.6)
== END | disposition home or self-care (01) ==
PROVIDERS: PCP Internal Medicine; Referring Provider Internal Medicine; Visit Provider Internal Medicine
DX: Z13.220 Encounter for screening for lipoid disorders (principal); E11.22 Type 2 diabetes mellitus with diabetic chronic kidney disease; N18.31 Chronic kidney disease, stage 3a; E87.6 Hypokalemia; I25.10 Atherosclerotic heart disease of native coronary artery without angina pectoris; E55.9 Vitamin D deficiency, unspecified; I12.9 Hypertensive chronic kidney disease with stage 1 through stage 4 chronic kidney disease, or unspecified chronic kidney disease
CPT/HCPCS: 36415; 80053; 80061; 82306; 83036; 84439; 84443; 84481; 85025

== ENCOUNTER 2024-05-06 13:46 | Emergency (ER) | payer MEDICAID, SELFPAY ==
[2023-11-24 08:48] VITALS: BMI 28.5
[2024-05-06 13:46] VITALS: BP 121/60; PULSE 57; RESP 16; TEMP 36.3; O2SAT 100
[2024-05-06] MEDS: Ketorolac 15 MG/ML Vial IM (14:49)
[2024-05-06] MEDS: HYDROmorphone 1 MG/ML Syringe IM (14:49)
[2024-05-06] MEDS: Ondansetron ODT 4 MG Tablet PO (15:28)
--- NOTE | 2024-05-06 15:35 | CT_ITS ---
HISTORY: lower back pain. TECHNIQUE: Helically acquired images were obtained of the lumbar spine without contrast. 2D reformats were reviewed. A radiation dose optimization technique was used for this scan. 388 images. COMPARISON: CTA 12/05/2022. FINDINGS: VERTEBRAE: Vertebral body heights maintained. No acute fracture identified. Degenerative changes of the posterior elements. ALIGNMENT: No significant anterior or posterior subluxation. Blank INTERVERTEBRAL DISCS: Mild disc bulges of L2-3 and L4-5. Degenerative endplate changes with vacuum disc phenomenon and posterior disc bulge osteophyte complex at L5-S1 mild right foraminal narrowing. No critical central canal stenosis seen. SOFT TISSUES: Right renal cyst again seen. CT/Spine Lumbar without Contrast IMPRESSION: No evidence for acute fracture or dislocation in the lumbar spine. Mild degenerative change. Electronically Signed: Monse Whittington MD at 15:50 EDT ,
--- NOTE | 2024-05-06 15:40 | RAD_ITS ---
INDICATION: Left hip pain, no known injury EXAMINATION/TECHNIQUE: X-RAY - XR Hip Unilateral with Pelvis when performed; 2-3 Views COMPARISON: No relevant prior comparison study available FINDINGS: PELVIC BONES: No displaced fracture, destructive or sclerotic lesions. Note that overlapping bowel shadows may however obscure fine detail. Sacroiliac joints are unremarkable. No widening of the pubic symphysis. HIPS: Hip joint spaces well-maintained bilaterally. No acute fracture. SOFT TISSUES: No soft tissue swelling or gas. RAD/HIP, UNI W/ Pelvis 2-3 Views IMPRESSION: Unremarkable study. Electronically Signed: Steve Veliz MD at 17:00 EDT ,
--- NOTE | 2024-05-06 15:42 | EDS_ITS ---
HPI <RUSTY Lopez - Last Filed: 05/06/24 17:10> History of Present Illness Chief Complaint: Back Narrative Narrative: Patient is a 63-year-old female with history of chronic back pain, CAD, history of colon cancer presents to the emerged department for acute on chronic left lower back pain, left hip pain. Patient states that this is radiating down her left buttock, down just past her knee. Patient states he is having difficulty ambulating. This has been ongoing for 1 week. She is currently waiting to get into pain management, she has been seen for this in the past. She denies any bowel or bladder continence, denies any saddle paresthesias. Denies any fever or chills. PFS <RUSTY Lopez - Last Filed: 05/06/24 17:10> [facility] Medical History (Updated 05/06/24 @ 17:07 by RUSTY Lopez) Hip pain Uses wheelchair Walker as ambulation aid Ambulates with cane CKD (chronic kidney disease), stage III Restless legs History of edema History of irregular heartbeat Chest pain Acute blood loss anemia Cancer Post-menopausal Anxiety History of steroid therapy Thyroid disease Diabetes Low iron History of renal disease Injury of head and neck Dietary restriction Gastric reflux Former smoker Shortness of breath on exertion Leg cramps History of echocardiogram Hypertension History of heart attack Cardiology follow-up encounter Neuropathy Migraines Carpal tunnel syndrome Anemia Seasonal allergies Foot fracture, right Foot fracture, left Gastroenteritis Measles Shingles Infectious mononucleosis Erythromelalgia Hepatitis Small fiber neuropathy Acid reflux Fibromyalgia Osteopenia Rheumatoid arthritis History of diabetes mellitus History of chronic kidney disease History of COVID-19 Home Medications ?Medication ?Instructions ?Recorded ?Last Taken ?Type nystatin 100,000 unit/gram topical 100,000 gm topical PRN PRN Skin 04/02/22 Unknown History powder (Nystop) Cleansing biotin 5,000 mcg disintegrating 15,000 mcg PO DAILY SUPPLEMENT 08/26/22 12/30/23 History tablet vitamin B complex (B 1 tab PO DAILY SUPPLEMENT 08/26/22 12/30/23 History Complex-Vitamin B12 tablet) sennosides 8.6 mg-docusate sodium 2 tab PO BID PRN PRN Constipation 11/27/22 11/26/23 Rx 50 mg tablet (Stool #0 tabs Softener-Stimulant Laxative) fluticasone propionate 50 1 spray intranasal BID PRN Sinus 12/05/22 12/04/22 History mcg/actuation nasal Symptoms spray,suspension hydroxychloroquine 200 mg tablet 200 mg PO BID RA #60 tabs 05/27/23 12/30/23 Rx rosuvastatin 10 mg tablet (Crestor) 20 mg PO QHS CHOLESTEROL 06/11/23 12/30/23 History levothyroxine 88 mcg tablet 88 mcg PO DAILY THYROID #90 tabs 09/03/23 12/31/23 Rx (Euthyrox) calcium carbonate (Calcium 600) 600 mg PO DAILY 09/10/23 12/30/23 History amlodipine 10 mg tablet 10 mg PO BID BP #90 tabs 10/01/23 12/31/23 Rx aspirin 81 mg capsule 81 mg PO DAILY 11/14/23 12/30/23 History famotidine 40 mg tablet 40 mg PO QHS 11/14/23 12/30/23 History venlafaxine 150 mg 150 mg PO DAILY #90 caps 11/21/23 12/30/23 Rx capsule,extended release 24 hr (Effexor XR) venlafaxine 75 mg tablet 75 mg PO DAILY #90 tabs 11/21/23 12/30/23 Rx clopidogrel 75 mg tablet 75 mg PO DAILY BLOOD THINNER #90 11/24/23 12/30/23 Rx tabs glipizide 10 mg tablet, extended 10 mg PO BID DIABETIC #180 tabs 12/10/23 12/30/23 Rx release 24 hr lisinopril 5 mg tablet 5 mg PO QHS BP #90 tabs 12/10/23 12/31/23 Rx zinc gluconate 50 mg tablet 50 mg PO DAILY 01/28/24 Unknown History ascorbic acid (vitamin C) 500 mg mg PO QDAY PRN 02/14/24 Unknown History capsule carvedilol 3.125 mg tablet 3.125 mg PO BID BP/HEART 02/14/24 Unknown History cholecalciferol (vitamin D3) 625 625 mcg PO QWEEK 02/14/24 Unknown History mcg (25,000 unit) capsule cyclobenzaprine 10 mg tablet 10 mg PO HS PRN muscle spasm #20 05/03/24 Unknown Rx tabs oxycodone-acetaminophen 5 mg-325 1 tab PO Q8H PRN pain 3 days #10 05/06/24 Unknown Rx mg tablet (Percocet) tabs Allergy/AdvReac Type Severity Reaction Status Date / Time iron Allergy Severe Other Verified 05/06/24 13:48 Iodinated Contrast Media Allergy Intermediate Hives Verified 05/06/24 13:48 (IVP dye) Seasonal Allergies: Uncoded Allergy Mild Hives Verified 05/06/24 13:48 levofloxacin (From Levaquin) Allergy PT UNSURE Verified 05/06/24 13:48 OF REACTION liraglutide (From Victoza) Allergy dehydration Verified 05/06/24 13:48 - ended up in hospital methylprednisolone (From AdvReac Intermediate HALLUCINATI Verified 05/06/24 13:48 Solu-Medrol) ONS adhesive AdvReac Rash Verified 05/06/24 13:48 hydrochlorothiazide AdvReac pt can tke Verified 05/06/24 13:48 tablet, but not capsule hydrocodone AdvReac Itching Verified 05/06/24 13:48 oxycodone (From Percocet) AdvReac Itching Verified 05/06/24 13:48 Family History Grandfather Cancer Heart disease Father Cancer Heart disease Diabetes Uncle Cancer Aunt Cancer Brother Heart disease Surgical History History of esophagogastroduodenoscopy (EGD) History of cardiac catheterization History of colectomy Hx of colonoscopy Hx of release of tendon History of lumbar laminectomy Hx of fusion of cervical spine Hx of cholecystectomy Hx of appendectomy Hx of tonsillectomy H/O heart artery stent Social History household members: family housing: house number of children: 0 current occupational status: disabled Smoking Status: Former smoker alcohol intake: never substance use type: does not use caffeine: Yes Type: carbonated beverages and tea what type of physical activity do you participate in: none seatbelt use: always do you feel safe at home: Yes additional social history: ROS <RUSTY Lopez - Last Filed: 05/06/24 17:10> ROS ED ROS Narrative Constitutional: Negative for fever, chills, weight loss, weakness Eyes: Negative for vision loss, vision change, double vision ENT: Negative for any sore throat, ear pain, congestion Cardiovascular: Negative for any chest pain, tightness, palpitations Respiratory: Negative for any cough, sputum production, hemoptysis, dyspnea, dyspnea on exertion, orthopnea Gastrointestinal: Negative for any abdominal pain, nausea, vomiting, diarrhea, constipation, blood in stool, blood in vomit : Negative for any urinary frequency, dysuria, retention, blood in urine Muscle skeletal: Negative for any neck pain. Positive for left-sided back pain radiates to the left leg. Positive left hip pain Neurological: Negative for any headache, syncope, dizziness Skin: Negative for any rashes, itching, abrasions, lacerations Psychiatric: Negative for any depression, anxiety, stress, suicidal ideation, homicidal ideation Hematologic: Negative for any excessive bruising, easy bleeding EXAM <RUSTY Lopez - Last Filed: 05/06/24 17:10> Physical Exam Narrative Exam Narrative: Vital signs reviewed. Extremities: Patient does have some pain to the left gluteal area, this wraps around the left hip. Intact extensor mechanism. Equal strength bilateral lower extremities. Neuro: Cranial nerves II through XII intact, no focal neurological deficits. Skin: Clean dry and intact with no rash, purpura, petechiae, vesicles or pustules. Backs/flank: No CVA tenderness, no midline spinal tenderness, no deformity. Pain is mostly to the left lower abdomen just above the left buttock Psych: Normal mood and affect. No SI, HI or acute psychosis. Const Vital Signs: 05/06/24 13:46 05/06/24 17:32 Temperature 97.4 F L 97.8 F Temperature Source Temporal Pulse Rate 57 L 52 L Respiratory Rate 16 16 Blood Pressure 121/60 H 115/56 L Blood Pressure Mean 80 75 Pulse Ox 100 95 Oxygen Delivery Method Room Air <Dr. Akil Zaragoza DO - Last Filed: 05/07/24 00:00> Physical Exam Const Vital Signs: 05/06/24 13:46 05/06/24 17:32 Temperature 97.4 F L 97.8 F Temperature Source Temporal Pulse Rate 57 L 52 L Respiratory Rate 16 16 Blood Pressure 121/60 H 115/56 L Blood Pressure Mean 80 75 Pulse Ox 100 95 Oxygen Delivery Method Room Air MDM <RUSTY Lopez - Last Filed: 05/06/24 17:10> [facility] Radiography Diagnostic Testing: Clinical Impression(s) from Imaging Studies Lumbar Spine CT 05/06/24 15:35 IMPRESSION: No evidence for acute fracture or dislocation in the lumbar spine. Mild degenerative change. Electronically Signed: Monse Whittington MD at 15:50 EDT , Hip/Pelvis X-Ray 05/06/24 15:40 IMPRESSION: Unremarkable study. Electronically Signed: Steve Veliz MD at 17:00 EDT , Treatment and Re-Evaluation :: Differential diagnosis includes however is not limited to: Cauda equina, spinal abscess, acute on chronic back pain, lumbar strain, sciatica Patient appears to be in no obvious distress vital signs are stable, patient is nontoxic-appearing. Physical examination yields no red flag signs. Patient will receive IM Dilaudid, oral Zofran as well as IM Toradol. Patient will be reevaluated. CT scan of the lower lumbar spine, x-rays of the left hip will be obtained. On reevaluation, the patient was in a position of comfort. Laying on her back. X-rays of the hip showed unremarkable, no acute process. CT scan lumbar spine shows no evidence of acute fracture or dislocation lumbar spine. Mild degenerative changes. At this time, patient will follow-up with pain management. Patient placed on Percocet as well as naproxen. She is instructed to return for any worsening symptoms. She understands the follow-up of making her pain management appointment. <Dr. Akil Zaragoza, - Last Filed: 05/07/24 00:00> [facility] Radiography Diagnostic Testing: Clinical Impression(s) from Imaging Studies Lumbar Spine CT 05/06/24 15:35 IMPRESSION: No evidence for acute fracture or dislocation in the lumbar spine. Mild degenerative change. Electronically Signed: Monse Whittington MD at 15:50 EDT , Hip/Pelvis X-Ray 05/06/24 15:40 IMPRESSION: Unremarkable study. Electronically Signed: Steve Veliz MD at 17:00 EDT , Treatment and Re-Evaluation :: Differential diagnosis includes however is not limited to: Cauda equina, spinal abscess, acute on chronic back pain, lumbar strain, sciatica Patient appears to be in no obvious distress vital signs are stable, patient is nontoxic-appearing. Physical examination yields no red flag signs. Patient will receive IM Dilaudid, oral Zofran as well as IM Toradol. Patient will be reevaluated. CT scan of the lower lumbar spine, x-rays of the left hip will be obtained. On reevaluation, the patient was in a position of comfort. Laying on her back. X-rays of the hip showed unremarkable, no acute process. CT scan lumbar spine shows no evidence of acute fracture or dislocation lumbar spine. Mild degenerative changes. At this time, patient will follow-up with pain management. Patient placed on Percocet as well as naproxen. She is instructed to return for any worsening symptoms. She understands the follow-up of making her pain management appointment. This patient was seen with a PA/[employer] MANAGER Individually assessed they patient including history and physical. I have reviewed everything on the chart that is available and agree with the documentation provided by the PA/[employer] MANAGER including discussion about the assessment, treatment plan, discussion, and return precautions. Patient presenting with lower back and hip pain. Differential as above. No loss of bladder or bowel control. Provide no saddle anesthesia. He obtained a CT of the lumbar spine which was negative. X-ray of the hip interpreted by myself shows no fracture or subluxation. Patient was medicated with Dilaudid, Zofran, Toradol. She feels better afterwards. She is able to ambulate. And her we will place her on Percocet and Naprosyn and she will follow-up with her pain management doctor. Discharge Plan Triage Chief Complaint: Back ED Midlevel Provider: Jerman Anna ED Provider: Akil Zaragoza Dx/Rx/DC Orders Clinical Impression: Back pain, Acute hip pain Instructions: Hip Abduction (Strength), ED Arthralgia, ED Back Pain (Acute or Chronic) Prescriptions: New oxycodone-acetaminophen [Percocet] 5-325 mg tablet 1 tab PO Q8H PRN (Reason: pain) 3 Days Qty: 10 0RF No Action nystatin [Nystop] 100,000 unit/gram powder 100,000 gm topical PRN PRN (Reason: Skin Cleansing) Patient Comments: APPLY TOPICALLY EVERY 8 HOURS biotin 5,000 mcg tablet,disintegrating 15,000 mcg PO DAILY vitamin B complex [B Complex-Vitamin B12] Tablet 1 tab PO DAILY calcium carbonate [Calcium 600] 600 mg calcium (1,500 mg) tablet 600 mg PO DAILY glipizide 10 mg tablet extended release 24hr 10 mg PO BID Qty: 180 3RF lisinopril 5 mg tablet 5 mg PO QHS Qty: 90 3RF cyclobenzaprine 10 mg tablet 10 mg PO HS PRN (Reason: muscle spasm) Qty: 20 0RF Rx Instructions: Take 1/2 to 1 tab as needed for back pain, spasm. zinc gluconate 50 mg tablet 50 mg PO DAILY cholecalciferol (vitamin D3) 625 mcg (25,000 unit) capsule 625 mcg PO QWEEK ascorbic acid (vitamin C) 500 mg capsule PO QDAY PRN rosuvastatin [Crestor] 10 mg tablet 20 mg PO QHS carvedilol 3.125 mg tablet 3.125 mg PO BID sennosides-docusate sodium [Stool Softener-Stimulant Laxat] 8.6-50 mg Tablet 2 tab PO BID PRN PRN (Reason: Constipation) Qty: 0 0RF fluticasone propionate 50 mcg/actuation [place],Suspension 1 spray INTRANASAL BID PRN (Reason: Sinus Symptoms) Rx Instructions: administer into each nostril aspirin 81 mg capsule 81 mg PO DAILY famotidine 40 mg tablet 40 mg PO QHS hydroxychloroquine 200 mg tablet 200 mg PO BID Qty: 60 1RF levothyroxine [Euthyrox] 88 mcg tablet 88 mcg PO DAILY Qty: 90 3RF amlodipine 10 mg tablet 10 mg PO BID Qty: 90 3RF venlafaxine [Effexor XR] 150 mg capsule,extended release 24hr 150 mg PO DAILY Qty: 90 1RF venlafaxine 75 mg tablet 75 mg PO DAILY Qty: 90 1RF clopidogrel 75 mg tablet 75 mg PO DAILY Qty: 90 3RF Primary Care Provider: Kimi López Referrals: Kimi López MD [Primary Care Provider] - Activity Restrictions/Additional Instructions: Keep your appointment with your pain management physician. Take the pain medicine as needed. Print Language: Maori Disposition Disposition: Home, Self Care Discharge Date/Time: 05/06/24 17:33
[2024-05-06 17:32] VITALS: BP 115/56; PULSE 52; RESP 16; TEMP 36.6; O2SAT 95
== END 2024-05-06 17:33 | disposition home or self-care (01) ==
PROVIDERS: Emergency Provider Student in an Organized Health Care Education/Training Program; PCP Internal Medicine; Visit Provider Student in an Organized Health Care Education/Training Program
DX: M54.9 Dorsalgia, unspecified (principal); E11.22 Type 2 diabetes mellitus with diabetic chronic kidney disease; E11.40 Type 2 diabetes mellitus with diabetic neuropathy, unspecified; M25.559 Pain in unspecified hip; I25.10 Atherosclerotic heart disease of native coronary artery without angina pectoris; Z87.891 Personal history of nicotine dependence; I12.9 Hypertensive chronic kidney disease with stage 1 through stage 4 chronic kidney disease, or unspecified chronic kidney disease; G89.29 Other chronic pain; Z90.49 Acquired absence of other specified parts of digestive tract; Z86.16 Personal history of COVID-19; I25.2 Old myocardial infarction; Z85.038 Personal history of other malignant neoplasm of large intestine
CPT/HCPCS: 72131; 73502; 96372; 99282

== ENCOUNTER → 2024-06-05 | Outpatient (CLI) | payer MEDICAID, SELFPAY ==
[2023-11-24 08:48] VITALS: BMI 28.5
--- NOTE | 2024-06-05 07:47 | MRI_ITS ---
EXAM: MR LUMBAR SPINE WITHOUT INTRAVENOUS CONTRAST CLINICAL INDICATION: LUMBAR RADICULOPATHY TECHNIQUE: Multiplanar and multisequence MR images of the lumbar spine without intravenous contrast. COMPARISON: CT lumbar spine, 05/06/2024. FINDINGS: VERTEBRAE: No fracture or spondylolysis. No suspicious marrow space signal abnormality. Normal lumbar lordosis. SPINAL CORD: No significant abnormality. Normal position and signal intensity of the conus medullaris. SOFT TISSUES: No significant abnormality. KIDNEYS AND URETERS: Multiple renal cysts are present for which no follow-up is indicated. DISCS/SPINAL CANAL/NEURAL FORAMINA: T12-L1: Mild bilateral facet arthrosis. No disc herniation, spinal canal stenosis, or neural foraminal narrowing. L1-L2: Mild bilateral facet arthrosis. No disc herniation, spinal canal stenosis, or neural foraminal narrowing. L2-L3: Disc bulge and moderate bilateral facet arthrosis. Mild spinal canal stenosis and mild bilateral neural foraminal narrowing. L3-L4: Mild disc bulge and moderate bilateral facet arthrosis. Mild spinal canal stenosis and mild bilateral neural foraminal narrowing. L4-L5: Disc bulge with small superimposed central disc herniation and moderate bilateral facet arthrosis. Mild to moderate spinal canal stenosis and mild bilateral neural foraminal narrowing. L5-S1: Disc height loss and disc desiccation. Modic type I endplate signal changes. Small Schmorl''s nodes. Central disc herniation superimposed upon a disc bulge and moderate bilateral facet arthrosis. Evidence of postoperative change. Mild spinal canal stenosis and [id number] bilateral neural foraminal narrowing. MRI/Spine Lumbar (Routine) IMPRESSION: Evidence of postoperative changes at L5-S1. Multilevel degenerative changes resulting in mild spinal canal stenosis and [id number] multilevel neural foraminal narrowing. No evidence of nerve root impingement. Electronically Signed: Cody Rich DO at 20:24 EDT ,
== END | disposition home or self-care (01) ==
LOC: MRI 07:44
PROVIDERS: PCP Internal Medicine; Referring Provider Internal Medicine; Visit Provider Internal Medicine
DX: M54.16 Radiculopathy, lumbar region (principal); G62.9 Polyneuropathy, unspecified; Z98.890 Other specified postprocedural states
CPT/HCPCS: 72148

== ENCOUNTER → 2024-07-20 | Outpatient (CLI) | payer MEDICAID, SELFPAY ==
[2023-11-24 08:48] VITALS: BMI 28.5
[2024-07-20 10:26] LABS: Absolute Lymphocyte Count 1.88 X10^3/uL (0.83-4.51); Absolute Neutrophil Count 7.6 X10^3/uL (2.0-7.7); Basophil# 0.11 X10^3/uL; Eosinophil# 0.31 X10^3/uL; Eosinophils% 2.9 % (0-5); Hematocrit 36.1 % (37-47); Hemoglobin 11.4 g/dL (12.0-15.0); Lymphocyte # 1.88 X10^3/ul (0.83-4.51); Lymphocyte % 17.4 % (19-41); Mean Corp Hgb Conc 31.6 g/dL (32-36); Mean Corpuscular Hgb 27.5 pg (27.0-32.0); Mean Platelet Vol. 10.4 fl (6.2-12.0); Monocyte# 0.77 X10^3/uL; Monocyte% 7.1 % (0-10); NRBC Flagged by Analyzer 0 % (0-5); Neutrophil # 7.64 X10^3/uL (2.7-7.7); Neutrophil % 70.9 % (47-70); Platelet Count 214 K/mm3 (150-450); RBC Distribution Width CV 13.6 % (11.6-14.6); Red Blood Count 4.15 M/mm3 (4.2-5.4); White Blood Count 10.8 K/mm3 (4.4-11.0)
[2024-07-20 10:49] LABS: Hemoglobin A1c 7.3 % (3.8-5.6)
[2024-07-20 11:05] LABS: AST(SGOT) 16 U/L (15-37); Alanine Aminotransfer ALT/SGPT 26 U/L (13-56); Anion Gap 8 (5-15); BUN 29 mg/dL (7-18); BUN/Creat Ratio 23.4 RATIO (10-20); Calcium,Total 9.8 mg/dL (8.5-10.1); Chloride 111 mmol/L (98-107); Creatinine, Serum 1.24 mg/dL (0.55-1.02); EST Glomerular Filtration Rate 46 mL/min (>60); Est Glom Filt Rate - Afr Amer 56 mL/min (>60); Glucose 171 mg/dL (74-106); Magnesium 1.7 mg/dL (1.6-2.6); Potassium 4.2 mmol/L (3.5-5.1); Sodium Level 141 mmol/L (136-145)
== END | disposition home or self-care (01) ==
LOC: MTLAB 08:55
PROVIDERS: PCP Internal Medicine; Referring Provider Internal Medicine; Visit Provider Internal Medicine
DX: Z79.899 Other long term (current) drug therapy (principal)
CPT/HCPCS: 36415; 80048; 83036; 83735; 84450; 84460; 85025

== ENCOUNTER 2024-08-18 13:00 | Outpatient (RCR) | payer MEDICAID, SELFPAY ==
[2023-11-24 08:48] VITALS: BMI 28.5
--- NOTE | 2024-06-15 16:05 | HP.PTEVAL_ITS ---
Patient's Visit Information Visit Information Visit Information: ESTELLA SU is a 64 year old F referred to Physical Therapy by Dr. Ludy Bryan MD with a diagnosis of URGE INCONTINENCE, FECAL INCONTINENCE. Date of Evaluation: 06/15/24 Physical Therapist: Jennifer Gerber PT, Cert MDT Visit Plan Frequency: 1x/Week Duration: 2-4 Months Plan: PF THERAPY FOR STRENGTHENING, LENGTHENING/RELAXATION AND ENDURANCE TRAINING. URINARY URGE AND FREQUENCY EDUCATION. HEALTHY BLADDER HABIT EDUCATION. TRAINING IN COORDINATION OF PELVIC FLOOR MUSCULATURE WITH HIP AND CORE (TRANSVERSE ABDOMINUS) MUSCULATURE. CORE STRENGTHENING. DIOR LE ROM, STRETCHING AND STRENGTHENING. TRAINING IN ABDOMINAL CAVITY PRESSURE MGMT WITH ADL'S. Subjective Subjective: Work/Leisure: UNEMPLOYEED SINCE 2013. Disability: NOT ON DISABILITY. Present symptoms: BOWEL AND BLADDER INCONTINENCE. Present since: ABOUT 6 MONTHS ABOUT Pain Scale: PATIENT DENIES PAIN RELATED TO INCONTINENCE. STATES SHE IS GOING TO THE PAIN CLINIC FOR PAIN IN HER BACK AND L HIP. Is it getting better, worse or staying the same: STAYING THE SAME Commenced as a result of: NO APPARENT REASON Symptoms at onset: URINE LEAKAGE Worse: EXERCISING, LAUGHING, COUGHING, SNEEZING, WAITING TOO LONG TO URINATE, NOT MAKING IT TO THE BATHROOM IN TIME IN THE MORNING OR AT NIGHT. Better: NOTHING THAT PATIENT HAS FOUND Disturbed sleep: GETTING UP 3 TO 4 TIMES AT NIGHT TO GO TO THE BATHROOM Previous history/Previous treatment: NOV 2022 BOWEL RESECTION FOR COLON CANCER (NO CHEMO OR RADIATION). NO HYSTERECTOMY. INTERMITTENT DIARRHEA SINCE 2022 COLON CANCER. H/O CYSTITIS. Treatment this episode: DIET CHANGES, TRYING TO DRINK LESS AT NIGHT AND TRYING TO URINATE EVERY [address] BRYAN. Gait: DENIES ANY RECENT FALLS. How long can you delay the need to urinate: SOMETIMES LONG NEEDED AND OTHER TIMES LEAKS URINE BEFORE MAKING IT TO THE BATHROOM IN TIME. Prolapse (Falling out feeling): NO Frequency of Urination: TRYING TO GO EVERY [address] BRYAN BUT STATES SHE CAN NOT DO IT. STATES SHE WAS GOING 3-4 TIMES A DAY PRIOR TO SEEING DR. BRYAN. PATIENT REPORTS SHE JUST DOESN'T NEED TO GO OFTEN EVERY 2 HRS INSTRUCTED. Ability to stop urine flow: NO Ability to initiate urine stream: PATIENT REPORTS SHE DOESN'T HAVE ANY DIFFICULTY INITIATING THE STREAM UNLESS SHE IS TRYING TO GO EVERY 2 HOURS/MORE FREQUENTLY THAN SHE THINKS SHE NEEDS TO OR HAS THE URGE TO. Dyspareunia: N/A Bowel Incontinence: YES - COMES AND GOES. PMH/Recent major surgery: SEE EXTENSIVE MEDICAL HISTORY IN [facility] EMR - REVIEWED WITH PATIENT. 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 Objective Objective: Sitting/Standing Posture: REDUCED LUMBAR LORDOSIS. NO RELEVANT LATERAL SHIFT. Active Correction of posture: ABLE TO PARTIALLY CORRECT. DOES NOT MAINTAIN. Other Observations: INDEP GAIT INTO PT WITHOUT AD. INDEP TRANSFER SIT TO STAND AND REVERSE. INDEP GUARDED TRANSFERS SIT TO SUPINE. MIN ASSIST +1 SUPINE TO SIT. PATIENT C/O PAIN IN SUPINE WITH AND WITHOUT KNEES BENT. LIMITED SUPINE DUE TO C/O BACK PAIN IN LYING. Sensory deficit: DIOR LE LIGHT TOUCH SENSATION GROSSLY INTACT AND SYMMETRICAL ROM deficit: DIOR HIP TIGHTNESS ALL PLANES. DIOR HS, AND CALF TIGHTNESS. Motor deficit: DIOR HIPS GROSSLY 4-/5, KNEES 4/5 AND ANKLES 5/5. PATIENT COMMUNICATES A FAIR UNDERSTANDING OF HOW TO CONTRACT HER PELVIC FLOOR. SHE STATES SHE IS CURRENTLY UNABLE TO STOP HER URINE STREAM BUT HAS BEEN ABLE TO IN THE PAST AND HAS DONE KEGEL EX'S IN THE PAST. Dural Signs: NEGATIVE DIOR LE'S - PATIENT DENIES LBP WITH SLUMP TEST BUT DOES REPORT NECK PAIN. Lumbar mvmt loss: flex - MOD ext - NORA R SG - NORA L SG - NORA. PATIENT C/O LOW BACK PAIN WITH LUMBAR ROM TESTING ALL PLANES. NW A RESULT. Core strength: POOR OTHER: PATIENT DECLINES PELVIC EXAM OF PELVIC FLOOR THIS DATE AND STATES SHE MAY CONSIDER IT AT A FUTURE APPOINTMENT. SHE REPORTS SHE HAS AN ANNUAL PELVIC EXAM UPCOMING IN JUL 2024 AN MAY WANT TO DEFER TO THAT. PATIENT ALSO DESCRIBES DISCUSSING [employer] TYPE TREATMENT WITH DR. BRYAN THAT ISN'T COVERED BY HER INSURANCE AND THAT THEY DECIDED SHE SHOULD TRY THERPAY FOR PELVIC FLOOR STRENGTHENING FIRST. FUNCTIONAL SCREEN: Incontinence Impact Questionnaire Score: 9 Urogenital Distress Inventory Score: 3 Goals Goal 1:: DECREASE URINARY LEAKAGE EPISODES TO ONE OR LESS PER DAY Goal Time Frame: 8-12 Weeks Goal 2:: PATIENT WILL SUCCESSFULLY DELAY VOIDING LONG NEEDED WHEN URGENCY OCCURS TO SUCCESSFULLY MAKE IT TO THE BATHROOM. Goal Time Frame: 6-8 Weeks Goal 3:: PATIENT WILL DEMONSTRATE/COMMUNICATE 10 CONSISTENT AND CONSECUTIVE 10 SECOND PELVIC FLOOR MUSCLE CONTRACTIONS TO DEMONSTRATE IMPROVED PELVIC FLOOR ENDURANCE. Goal Time Frame: 8-12 Weeks Goal 4:: DEVELOP HEALTHY FLUID INTAKE HABITS WITH FLUID INTAKE OF ? BODY WEIGHT IN OUNCES PER DAY AND 2/3 BEING WATER. Goal Time Frame: 2-4 Weeks Goal 5:: NORMALIZE VOIDING FREQUENCEY TO EVERY 3-4 HOURS. Goal Time Frame: 2-4 Weeks Goal 6:: PATIENT WILL BE INDEP WITH A HEP/HOME INSTRUCTIONS FOR CONTINUED IMPROVEMENT ONCE FORMAL PHYSICAL THERAPY CONCLUDES. Goal Time Frame: 8-12 Weeks Rehabilitation Potential Physical Therapy Diagnosis: CORE AND HIP WEAKNESS. TRUNK AND LE STIFFNESS WITH SIGNS OF PELVIC FLOOR WEAKNESS ALONG WITH SYMPTOMS OF URINARY URGE INCONTINENCE, URINARY STRESS INCONTINENCE, AND INTERMITTENT FECAL INCONTINENCE. Rehabilitation Potential: Questionable Anticipated Interventions Patient/Client Instruction: Educate patient on: Condition, Plan of Care and Risk Factors For the Purpose of:: To improve self management Therapeutic Exercise to Include: Strength training, Postural training, Flexibilty training, Neuromotor development and Relaxation training For the Purpose of:: To improve muscle performance and motor function, To increase tolerance to activity/condition/position, To improve ability of physical actions for home/community/work/leisure and To increase flexibility/ROM Text: Thank you for the opportunity to evaluate your patient. For Medicare and Medicare HMO plans, please review the plan of care and approve it. It will need to be FAXED BACK to us at [phone] for Medicare purposes. For Medicare only, by signing this I certify the plan of care. Please let me know if there are questions or concerns regarding this plan of care. Physician Signature: Date:
--- NOTE | 2024-06-29 14:09 | HP.PTEVAL_ITS ---
Patient's Visit Information Visit Information Visit Information: ESTELLA SU is a 64 year old F referred to Physical Therapy by Dr. Ludy Bryan MD with a diagnosis of URGE INCONTINENCE, FECAL INCONTINENCE. Date of Evaluation: 06/15/24 Physical Therapist: Jennifer Gerber PT, Cert MDT Visit Plan Frequency: 1x/Week Duration: 2-4 Months Plan: PF THERAPY FOR STRENGTHENING, LENGTHENING/RELAXATION AND ENDURANCE TRAINING. URINARY URGE AND FREQUENCY EDUCATION. HEALTHY BLADDER HABIT EDUCATION. TRAINING IN COORDINATION OF PELVIC FLOOR MUSCULATURE WITH HIP AND CORE (TRANSVERSE ABDOMINUS) MUSCULATURE. CORE STRENGTHENING. DIOR LE ROM, STRETCHING AND STRENGTHENING. TRAINING IN ABDOMINAL CAVITY PRESSURE MGMT WITH ADL'S. Subjective Subjective: Work/Leisure: UNEMPLOYEED SINCE 2013. Disability: NOT ON DISABILITY. Present symptoms: BOWEL AND BLADDER INCONTINENCE. Present since: ABOUT 6 MONTHS ABOUT Pain Scale: PATIENT DENIES PAIN RELATED TO INCONTINENCE. STATES SHE IS GOING TO THE PAIN CLINIC FOR PAIN IN HER BACK AND L HIP. Is it getting better, worse or staying the same: STAYING THE SAME Commenced as a result of: NO APPARENT REASON Symptoms at onset: URINE LEAKAGE Worse: EXERCISING, LAUGHING, COUGHING, SNEEZING, WAITING TOO LONG TO URINATE, NOT MAKING IT TO THE BATHROOM IN TIME IN THE MORNING OR AT NIGHT. Better: NOTHING THAT PATIENT HAS FOUND Disturbed sleep: GETTING UP 3 TO 4 TIMES AT NIGHT TO GO TO THE BATHROOM Previous history/Previous treatment: NOV 2022 BOWEL RESECTION FOR COLON CANCER (NO CHEMO OR RADIATION). NO HYSTERECTOMY. INTERMITTENT DIARRHEA SINCE 2022 COLON CANCER. H/O CYSTITIS. Treatment this episode: DIET CHANGES, TRYING TO DRINK LESS AT NIGHT AND TRYING TO URINATE EVERY [address] BRYAN. Gait: DENIES ANY RECENT FALLS. How long can you delay the need to urinate: SOMETIMES LONG NEEDED AND OTHER TIMES LEAKS URINE BEFORE MAKING IT TO THE BATHROOM IN TIME. Prolapse (Falling out feeling): NO Frequency of Urination: TRYING TO GO EVERY [address] BRYAN BUT STATES SHE CAN NOT DO IT. STATES SHE WAS GOING 3-4 TIMES A DAY PRIOR TO SEEING DR. BRYAN. PATIENT REPORTS SHE JUST DOESN'T NEED TO GO OFTEN EVERY 2 HRS INSTRUCTED. Ability to stop urine flow: NO Ability to initiate urine stream: PATIENT REPORTS SHE DOESN'T HAVE ANY DIFFICULTY INITIATING THE STREAM UNLESS SHE IS TRYING TO GO EVERY 2 HOURS/MORE FREQUENTLY THAN SHE THINKS SHE NEEDS TO OR HAS THE URGE TO. Dyspareunia: N/A Bowel Incontinence: YES - COMES AND GOES. PMH/Recent major surgery: SEE EXTENSIVE MEDICAL HISTORY IN [facility] EMR - REVIEWED WITH PATIENT. 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 Pain LOW BACK PAIN: Pain Intensity (Out of 10): 5 Objective Objective: Sitting/Standing Posture: REDUCED LUMBAR LORDOSIS. NO RELEVANT LATERAL SHIFT. Active Correction of posture: ABLE TO PARTIALLY CORRECT. DOES NOT MAINTAIN. Other Observations: INDEP GAIT INTO PT WITHOUT AD. INDEP TRANSFER SIT TO STAND AND REVERSE. INDEP GUARDED TRANSFERS SIT TO SUPINE. MIN ASSIST +1 SUPINE TO SIT. PATIENT C/O PAIN IN SUPINE WITH AND WITHOUT KNEES BENT. LIMITED SUPINE DUE TO C/O BACK PAIN IN LYING. Sensory deficit: DIOR LE LIGHT TOUCH SENSATION GROSSLY INTACT AND SYMMETRICAL ROM deficit: DIOR HIP TIGHTNESS ALL PLANES. DIOR HS, AND CALF TIGHTNESS. Motor deficit: DIOR HIPS GROSSLY 4-/5, KNEES 4/5 AND ANKLES 5/5. PATIENT COMMUNICATES A FAIR UNDERSTANDING OF HOW TO CONTRACT HER PELVIC FLOOR. SHE STATES SHE IS CURRENTLY UNABLE TO STOP HER URINE STREAM BUT HAS BEEN ABLE TO IN THE PAST AND HAS DONE KEGEL EX'S IN THE PAST. Dural Signs: NEGATIVE DIRO LE'S - PATIENT DENIES LBP WITH SLUMP TEST BUT DOES REPORT NECK PAIN. Lumbar mvmt loss: flex - MOD ext - NORA R SG - NORA L SG - NORA. PATIENT C/O LOW BACK PAIN WITH LUMBAR ROM TESTING ALL PLANES. NW A RESULT. Core strength: POOR OTHER: PATIENT DECLINES PELVIC EXAM OF PELVIC FLOOR THIS DATE AND STATES SHE MAY CONSIDER IT AT A FUTURE APPOINTMENT. SHE REPORTS SHE HAS AN ANNUAL PELVIC EXAM UPCOMING IN JUL 2024 AN MAY WANT TO DEFER TO THAT. PATIENT ALSO DESCRIBES DISCUSSING [employer] TYPE TREATMENT WITH DR. BRYAN THAT ISN'T COVERED BY HER INSURANCE AND THAT THEY DECIDED SHE SHOULD TRY THERPAY FOR PELVIC FLOOR STRENGTHENING FIRST. FUNCTIONAL SCREEN: Incontinence Impact Questionnaire Score: 9 Urogenital Distress Inventory Score: 3 Goals Goal 1:: DECREASE URINARY LEAKAGE EPISODES TO ONE OR LESS PER DAY Goal Time Frame: 8-12 Weeks Goal 2:: PATIENT WILL SUCCESSFULLY DELAY VOIDING LONG NEEDED WHEN URGENCY OCCURS TO SUCCESSFULLY MAKE IT TO THE BATHROOM. Goal Time Frame: 6-8 Weeks Goal 3:: PATIENT WILL DEMONSTRATE/COMMUNICATE 10 CONSISTENT AND CONSECUTIVE 10 SECOND PELVIC FLOOR MUSCLE CONTRACTIONS TO DEMONSTRATE IMPROVED PELVIC FLOOR ENDURANCE. Goal Time Frame: 8-12 Weeks Goal 4:: DEVELOP HEALTHY FLUID INTAKE HABITS WITH FLUID INTAKE OF ? BODY WEIGHT IN OUNCES PER DAY AND 2/3 BEING WATER. Goal Time Frame: 2-4 Weeks Goal 5:: NORMALIZE VOIDING FREQUENCEY TO EVERY 3-4 HOURS. Goal Time Frame: 2-4 Weeks Goal 6:: PATIENT WILL BE INDEP WITH A HEP/HOME INSTRUCTIONS FOR CONTINUED IMPROVEMENT ONCE FORMAL PHYSICAL THERAPY CONCLUDES. Goal Time Frame: 8-12 Weeks Rehabilitation Potential Physical Therapy Diagnosis: CORE AND HIP WEAKNESS. TRUNK AND LE STIFFNESS WITH SIGNS OF PELVIC FLOOR WEAKNESS ALONG WITH SYMPTOMS OF URINARY URGE INCONTINENCE, URINARY STRESS INCONTINENCE, AND INTERMITTENT FECAL INCONTINENCE. Rehabilitation Potential: Questionable Anticipated Interventions Patient/Client Instruction: Educate patient on: Condition, Plan of Care and Risk Factors For the Purpose of:: To improve self management Therapeutic Exercise to Include: Strength training, Postural training, Flexibilty training, Neuromotor development and Relaxation training For the Purpose of:: To improve muscle performance and motor function, To increase tolerance to activity/condition/position, To improve ability of physical actions for home/community/work/leisure and To increase flexibility/ROM Text: Thank you for the opportunity to evaluate your patient. For Medicare and Medicare HMO plans, please review the plan of care and approve it. It will need to be FAXED BACK to us at [phone] for Medicare purposes. For Medicare only, by signing this I certify the plan of care. Please let me know if there are questions or concerns regarding this plan of care. Physician Signature: Date:
--- NOTE | 2024-08-18 13:50 | HP.PTDCSUM ---
Discharge Summary D/C summary: It has been my pleasure to treat ESTELLA SU referred by Dr. Ludy Bryan MD, with the diagnosis of URGE INCONTINENCE, FECAL INCONTINENCE for a total of 8 visit(s). Discharge Date: 08/18/24 Please see the following information for a summary of their discharge status. Subjective Subjective: PATIENT REPORTS SEEING DR. BRYAN YESTERDAY AND FOLLOW UP SCHEDULED FOR 6 MONTHS. PATIENT REPORTS SHE ISN'T HAVING ANY INCONTINENCE. GETTING UP TO URINATE ABOUT 2 TIMES AT NIGHT. STATES SHE MISSED LAST PT VISIT DUE TO ILLNESS. AWAITING APPROVAL FOR NEXT PAIN MGMT APPROVAL FOR LOW BACK. STATES SHE HAD TO BACK OFF OF THE STANDING MR'S TO AVOID BACK PAIN. PATIENT REPORTS SHE STILL CAN'T VOID EVERY [address] BRYAN BUT SHE IS VOIDING AT LEAST EVERY 3-4 HOURS. Pain LOW BACK PAIN: Pain Intensity (Out of 10): 6 Overall Improvement % Improvement: 100 Objective Objective/Function: PATIENT WAS SEEN TODAY FOR RE-ASSESSMENT OF PROGRESS TOWARD THE SET PT GOALS AND THE NEED FOR FURTHER PHYSICAL THERAPY VS READINESS FOR DISCHARGE. THIS PATIENT HAS DONE REALLY WELL WITH PHYSICAL THERAP AND SHE IS NOW INDEP WITH A HEP. UPON ASSESSMENT TODAY, ALL PT GOALS HAVE BEEN MET. PATIENT IS APPROPRIATE FOR AND AGREEABLE TO DISCHARGE. FUNCTIONAL SCREEN: Incontinence Impact Questionnaire Score: 0 Urogenital Distress Inventory Score: 0 Goals Goal 1:: DECREASE URINARY LEAKAGE EPISODES TO ONE OR LESS PER DAY Goal Progress: Goal Met Goal 2:: PATIENT WILL SUCCESSFULLY DELAY VOIDING LONG NEEDED WHEN URGENCY OCCURS TO SUCCESSFULLY MAKE IT TO THE BATHROOM. Goal Progress: Goal Met Goal 3:: PATIENT WILL DEMONSTRATE/COMMUNICATE 10 CONSISTENT AND CONSECUTIVE 10 SECOND PELVIC FLOOR MUSCLE CONTRACTIONS TO DEMONSTRATE IMPROVED PELVIC FLOOR ENDURANCE. Goal Progress: Goal Met Goal 4:: DEVELOP HEALTHY FLUID INTAKE HABITS WITH FLUID INTAKE OF ? BODY WEIGHT IN OUNCES PER DAY AND 2/3 BEING WATER. Goal Progress: Progressing Goal 5:: NORMALIZE VOIDING FREQUENCEY TO EVERY 3-4 HOURS. Goal Progress: Goal Met Goal 6:: PATIENT WILL BE INDEP WITH A HEP/HOME INSTRUCTIONS FOR CONTINUED IMPROVEMENT ONCE FORMAL PHYSICAL THERAPY CONCLUDES. Goal Progress: Goal Met Plan Plan: D/C D/C Information d/c sentence: If there are questions or concerns regarding this patient's physical therapy, please feel free to call me at [phone]. Thank you for the referral of this patient. Sincerely, Jennifer Gerber, PT, Cert MDT Balance/Gait/Functional tests Improvement % Improvement: 100
== END 2024-08-18 19:00 | disposition home or self-care (01) ==
LOC: PT 13:00
PROVIDERS: PCP Internal Medicine; Referring Provider Urology; Visit Provider Urology
DX: R15.2 Fecal urgency (principal)
CPT/HCPCS: 97162; 97530

== ENCOUNTER → 2024-08-31 | Outpatient (CLI) | payer MEDICAID, SELFPAY ==
[2023-11-24 08:48] VITALS: BMI 28.5
--- NOTE | 2024-08-31 07:31 | NM_ITS ---
CLINICAL: 64-year-old female with history of chronic nausea. SEMI-SOLID PHASE 99m Tc SULFUR COLLOID GASTRIC EMPTYING STUDY COMPARISON: None available FINDINGS: The patient was administered 1.1 mCi of 99m Tc sulfur colloid mixed with oatmeal and consumed per os. Image acquisitions in the anterior-posterior projections were obtained for 60 minutes. There is prompt visualization of the stomach. There is no gastroesophageal reflux identified. The T ? linear fit was calculated to be 33.74 minutes, (Normal: 12-56 minutes). NM/Gastric Emptying Study IMPRESSION: 1. NORMAL 99m Tc sulfur colloid semi-solid phase (oatmeal) gastric emptying imaging examination. A. There is normal and preserved semi-solid phase gastric emptying compared to normal controls. (Perez et al, J Nucl Med Tech 38: 186, 2010). Electronically Signed: Jeffery Colunga DO at 22:26 EST ,
== END | disposition home or self-care (01) ==
LOC: NM 07:28
PROVIDERS: PCP Internal Medicine; Referring Provider Internal Medicine; Visit Provider Internal Medicine
DX: K31.84 Gastroparesis (principal); R11.0 Nausea
CPT/HCPCS: 78264; A9500

== ENCOUNTER → 2024-09-06 | Outpatient (CLI) | payer MEDICAID, SELFPAY ==
[2023-11-24 08:48] VITALS: BMI 28.5
--- NOTE | 2024-09-06 15:31 | RAD_ITS ---
HISTORY: cough. TECHNIQUE: XR Chest 2 Views. COMPARISON: 03/04/2024. FINDINGS: CARDIOMEDIASTINAL BORDERS: Cardiac silhouette within normal limits in size. Mediastinal contour also unchanged with calcification of the aortic knob. LUNGS: Mild linear opacities in the lung bases. PLEURA: No pleural effusion or pneumothorax seen. OSSEOUS STRUCTURES: Mild degenerative change. RAD/Chest PA and Lateral IMPRESSION: Mild bibasilar atelectasis or inflammation. Electronically Signed: Monse Whittington MD at 15:48 EST ,
== END | disposition home or self-care (01) ==
PROVIDERS: PCP Internal Medicine; Referring Provider Physician Assistant; Visit Provider Physician Assistant
DX: R05.9 Cough, unspecified (principal)
CPT/HCPCS: 71046

== ENCOUNTER → 2024-10-04 | Outpatient (CLI) | payer MEDICAID, SELFPAY ==
[2023-11-24 08:48] VITALS: BMI 28.5
--- NOTE | 2024-10-04 15:08 | BI_ITS ---
MAMMOGRAPHY - BILATERAL SCREENING 3-D TOMOSYNTHESIS REASON FOR EXAM: Female, 64 years old. breast cancer screening PERTINENT HISTORY: No significant family history. TECHNIQUE: 2-D mammograms and 3-D Tomosynthesis of the breast (s) were performed. CAD was performed. COMPARISON: 09/15/2023 FINDINGS: The breast composition is composed of scattered fibroglandular density. Scattered benign calcifications are seen. No dense spiculated masses or suspicious microcalcifications are identified. No architectural distortion is identified. There is no skin thickening or retraction. There has been no significant change since the prior study. BI/SCRN MAMM (CAD)W/NIRU BILAT IMPRESSION: No mammographic signs of malignancy. Routine yearly mammograms recommended. ASSESSMENT CATEGORY: BIRADS Category 1: Negative. A letter regarding these results will be sent to the patient by the facility within 30 days. FOLLOW UP RECOMMENDATION: Yearly follow up mammogram recommended. (A) Approximately 10% of breast cancers are not detected by mammography. A normal mammogram should not delay biopsy of a clinically suspicious abnormality. Electronically Signed: Jeffery Guo MD at 18:05 EST ,
== END | disposition home or self-care (01) ==
LOC: OPBI 15:08
PROVIDERS: PCP Internal Medicine; Referring Provider Internal Medicine; Visit Provider Internal Medicine
DX: Z12.31 Encounter for screening mammogram for malignant neoplasm of breast (principal)
CPT/HCPCS: 77063; 77067

== ENCOUNTER → 2024-10-19 | Outpatient (CLI) | payer MEDICAID, SELFPAY ==
[2023-11-24 08:48] VITALS: BMI 28.5
--- NOTE | 2024-10-19 14:47 | CT_ITS ---
STUDY: CT CHEST WITH CONTRAST REASON FOR EXAM: Female, 64 years old. SOB RADIATION DOSAGE (If Supplied By Facility): CTDIvol = ( 17.62 ) mGy, DLP = ( 806 ) mGycm TECHNIQUE: Transaxial imaging was performed following intravenous administration of IV 100mL Isovue-370. Multiplanar coronal and sagittal images were reformatted. Individualized dose optimization techniques were used for this CT. COMPARISON: Comparison is made with prior chest radiograph dated September 06, 2024. FINDINGS: CHEST The lungs are normal. There is no demonstrated pleural abnormality. There are calcifications of the coronary arteries. Calcified subcarinal lymph nodes. Normal hilar regions. Normal unenhanced pulmonary arteries. Normal aorta arch and descending thoracic aorta. There are degenerative changes of the thoracic spine. There is no demonstrated abnormality of the visualized upper abdomen. CT/Chest WITH Contrast IMPRESSION: No acute abnormality is seen. Coronary artery calcification. Electronically Signed: Franco Sullivan MD at 8:50 EST ,
[2024-10-19 15:16] LABS: CREATININE FINGERSTICK < 1.0 mg/dL (0.55-1.02); EGFR FINGERSTICK > 60.0000 mL/min (>60)
[2024-10-19 15:28] VITALS: BP 155/58; PULSE 58; RESP 16; O2SAT 97
--- NOTE | 2024-10-19 15:29 | NURSING ---
Pt had contrast allergy in the past, was pre-medicated for CT today. No signs or symptoms of reaction. VS WNL for patient per pt.
== END | disposition home or self-care (01) ==
LOC: CT 14:44
PROVIDERS: PCP Internal Medicine
DX: R06.02 Shortness of breath (principal); R91.8 Other nonspecific abnormal finding of lung field
CPT/HCPCS: 71260; Q9967

== ENCOUNTER → 2024-10-20 | Outpatient (CLI) | payer MEDICAID, SELFPAY ==
[2023-11-24 08:48] VITALS: BMI 28.5
[2024-10-20 12:42] LABS: Vitamin B12 1076 pg/mL (211-911); Vitamin D,25 Hydroxy 26.1 ng/mL
[2024-10-20 13:06] LABS: Iron 66 ug/dL (50-170); Iron Binding Capacity,Total 415 ug/dL (250-450); PERCENT IRON SATURATION 15.9 % (15.0-55.0)
== END | disposition home or self-care (01) ==
LOC: MTLAB 10:12
PROVIDERS: PCP Internal Medicine; Referring Provider Internal Medicine; Visit Provider Internal Medicine
DX: E55.9 Vitamin D deficiency, unspecified (principal); K31.84 Gastroparesis; R11.0 Nausea; E53.8 Deficiency of other specified B group vitamins
CPT/HCPCS: 36415; 82306; 82607; 83540; 83550

== ENCOUNTER 2024-12-14 05:46 | Day surgery (SDC) | payer MEDICAID, SELFPAY ==
[2023-11-24 08:48] VITALS: BMI 28.5
--- NOTE | 2024-12-09 21:58 | PAT.ANESEVAL ---
Pre-Assessment Diagnosis/Proposed Procedure Planned Operative Procedure(s): COLONOSCOPY Anesthesia History Anesthesia History - program manager: Anesthesia History - program manager Hx Hospitalization No 12/09/24 10:39 Any Problems With Anesthesia No 12/09/24 10:39 Cholinesterase deficiency No 12/09/24 10:39 You/Your Family Experience No 12/09/24 10:39 fever (hyperthermia) with Relationship Recent Exposure to Contagious No 12/31/23 08:46 Disease Does patient have nerve No 12/09/24 10:39 stimulator Patient instructed to have device shut off --Does patient have Pacemaker or ICD? When Was Last Pacemaker Check QUESTION #4 FULL TEXT: You/Your Family Experience fever (hyperthermia) with Anesthesia Last Oral Intake Last Oral intake: Last Oral Intake NPO since Meds taken in AM with sips of water? Meds patient instructed to take am of surgery PONV PONV - program manager: PONV - program manager Female Yes 12/09/24 10:39 HX of Motion Sickness Yes 12/09/24 10:39 HX of N/V After Surgery No 12/09/24 10:39 Non-Smoker Yes 12/09/24 10:39 Duration of Surgery greater No 12/09/24 10:39 than 60 minutes Number of Risk Factors 3 12/09/24 10:39 PONV Score Moderate Risk 12/09/24 10:39 Height & Weight Height & Weight: Anesthesia: Height & Weight Height 5 ft 8 in 09/23/24 11:41 Respiratory Assessment Respiratory Assessment - program manager: Respiratory Tract Infection Hx - program manager Hx Respiratory Tract Infection No 12/09/24 10:39 STOP Sleep Apnea STOP Sleep Apnea - program manager: STOP Sleep Apnea - program manager Hx Hypertension Yes: NOT CONTROLLED WITH MED 12/09/24 10:39 , recently meds adjusted Hx Sleep Apnea No 12/09/24 10:39 CPAP BIPAP Do you snore loudly (louder Yes 12/09/24 10:39 than talking or can be heard Do you often feel tired/ No 12/09/24 10:39 fatigued/ sleepy during daytime? Has anyone observed you stop No 12/09/24 10:39 breathing during sleep? STOP Results Positive 12/09/24 10:39 QUESTION #5 FULL TEXT : Do you snore loudly (louder than talking or can be heard through closed doors)? 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 Specify any problems Hx of Preganancy in last 3 No 12/09/24 10:39 Months Nurse Filling Out Transfusion [facility] 12/09/24 10:39 & Questions: Date: 12/09/24 12/09/24 10:39 Time: 10:42 12/09/24 10:39 Patient unable to answer at this time (ie. confused, unrespo /Reproduction History /Reproductive History - program manager: /Reproductive Hx- program manager Hx Now No 12/09/24 10:39 Gestational Age (in weeks): EDC: Hx Hx Para Hx Section SAB No 12/09/24 10:39 [facility] Medical History (Updated 12/09/24 @ 11:08 by Basia García) History of GI bleed Recent URI Rib pain on left side Lumbar radiculopathy, acute Hip pain Uses wheelchair Walker as ambulation aid Ambulates with cane CKD (chronic kidney disease), stage III Restless legs History of edema History of irregular heartbeat Chest pain Acute blood loss anemia Cancer Post-menopausal Anxiety History of steroid therapy Thyroid disease Diabetes Low iron History of renal disease Injury of head and neck Dietary restriction Gastric reflux Former smoker Shortness of breath on exertion Leg cramps History of echocardiogram Hypertension History of heart attack Cardiology follow-up encounter Neuropathy Migraines Carpal tunnel syndrome Anemia Seasonal allergies Foot fracture, right Foot fracture, left Gastroenteritis Infectious mononucleosis Erythromelalgia Hepatitis Small fiber neuropathy Acid reflux Fibromyalgia Osteopenia Rheumatoid arthritis History of diabetes mellitus History of chronic kidney disease History of COVID-19 Home Medications ?Medication ?Instructions ?Recorded ?Last Taken ?Type nystatin 100,000 unit/gram topical 100,000 gm topical PRN PRN Skin 04/02/22 Unknown History powder (Nystop) Cleansing biotin 5,000 mcg disintegrating 15,000 mcg PO DAILY SUPPLEMENT 08/26/22 12/30/23 History tablet vitamin B complex (B 1 tab PO DAILY SUPPLEMENT 08/26/22 12/30/23 History Complex-Vitamin B12 tablet) sennosides 8.6 mg-docusate sodium 2 tab PO BID PRN PRN Constipation 11/27/22 11/26/23 Rx 50 mg tablet (Stool #0 tabs Softener-Stimulant Laxative) fluticasone propionate 50 1 spray intranasal BID PRN Sinus 12/05/22 12/04/22 History mcg/actuation nasal Symptoms spray,suspension hydroxychloroquine 200 mg tablet 200 mg PO BID RA #60 tabs 05/27/23 12/30/23 Rx rosuvastatin 10 mg tablet (Crestor) 20 mg PO QHS CHOLESTEROL 06/11/23 12/30/23 History amlodipine 10 mg tablet 10 mg PO BID BP #90 tabs 10/01/23 12/14/24 Rx aspirin 81 mg capsule 81 mg PO DAILY 11/14/23 12/13/24 History clopidogrel 75 mg tablet 75 mg PO DAILY BLOOD THINNER #90 11/24/23 12/10/24 Rx tabs glipizide 10 mg tablet, extended 10 mg PO BID DIABETIC #180 tabs 12/10/23 12/30/23 Rx release 24 hr zinc gluconate 50 mg tablet 50 mg PO DAILY 01/28/24 Unknown History ascorbic acid (vitamin C) 500 mg 500 mg PO QDAY 02/14/24 Unknown History capsule carvedilol 3.125 mg tablet 3.125 mg PO BID BP/HEART 02/14/24 12/14/24 History levothyroxine 88 mcg tablet 88 mcg PO DAILY THYROID #90 tabs 09/01/24 12/14/24 Rx (Euthyrox) cholecalciferol (vitamin D3) 25 25 mcg PO QDAY 10/28/24 Unknown History mcg (1,000 unit) capsule oxycodone-acetaminophen 5 mg-325 1 tab PO Q6H PRN pain 10/28/24 Unknown History mg tablet ondansetron HCl 8 mg tablet 8 mg PO Q6H PRN nausea and 11/02/24 Unknown Rx vomiting #20 tabs venlafaxine 150 mg 150 mg PO DAILY #90 caps 11/17/24 Unknown Rx capsule,extended release 24 hr (Effexor XR) venlafaxine 75 mg tablet 75 mg PO DAILY #90 tabs 11/17/24 Unknown Rx famotidine 40 mg tablet 40 mg PO QHS #90 tabs 11/25/24 Unknown Rx Lactobacillus acidophilus and 4 cap PO DAILY 12/09/24 Unknown History rhamnosus 15 billion cell capsule (Probiotic) lisinopril 5 mg tablet 10 mg PO QHS BP 12/09/24 Unknown History Allergy/AdvReac Type Severity Reaction Status Date / Time iron Allergy Severe Other Verified 12/14/24 06:09 Iodinated Contrast Media Allergy Intermediate Hives Verified 12/14/24 06:09 (IVP dye) Seasonal Allergies: Uncoded Allergy Mild Hives Verified 12/14/24 06:09 levofloxacin (From Levaquin) Allergy PT UNSURE Verified 12/14/24 06:09 OF REACTION liraglutide (From Victoza) Allergy dehydration Verified 12/14/24 06:09 - ended up in hospital methylprednisolone (From AdvReac Intermediate HALLUCINATI Verified 12/14/24 06:09 Solu-Medrol) ONS adhesive AdvReac Rash Verified 12/14/24 06:09 adhesive tape AdvReac Rash Verified 12/14/24 06:09 hydrochlorothiazide AdvReac pt can tke Verified 12/09/24 11:03 tablet, but not capsule hydrocodone AdvReac Itching Verified 12/14/24 06:09 oxycodone (From Percocet) AdvReac Itching Verified 12/14/24 06:09 Family History Grandfather Cancer Heart disease Father Cancer Heart disease Diabetes Uncle Cancer Aunt Cancer Brother Heart disease Surgical History History of esophagogastroduodenoscopy (EGD) History of cardiac catheterization History of colectomy Hx of colonoscopy Hx of release of tendon History of lumbar laminectomy Hx of fusion of cervical spine Hx of cholecystectomy Hx of appendectomy Hx of tonsillectomy H/O heart artery stent Social History household members: family housing: house number of children: 0 current occupational status: disabled Smoking Status: Former smoker alcohol intake: never substance use type: does not use caffeine: Yes Type: carbonated beverages and tea what type of physical activity do you participate in: none seatbelt use: always do you feel safe at home: Yes additional social history: Audit: Pertinent Findings Pertinent Findings EKG Perinent findings: February 16, 2024. Sinus bradycardia with first-degree AV block. Possible left atrial enlargement. Left axis deviation. Right bundle branch block. Possible lateral infarct. And inferior infarct age undetermined. Consult pertinent findings: September 22, 2024. Dr. Melissa. Recommendation Anesthesia Recommendation Anesthesia recommendation: F/U recommended
--- NOTE | 2024-12-10 10:16 | PAT.ANE_ITS ---
Pre-Assessment Diagnosis/Proposed Procedure Planned Operative Procedure(s): COLONOSCOPY Anesthesia History Anesthesia History - head of marketing analytics: Anesthesia History - head of marketing analytics Hx Hospitalization No 12/09/24 10:39 Any Problems With Anesthesia No 12/09/24 10:39 Cholinesterase deficiency No 12/09/24 10:39 You/Your Family Experience No 12/09/24 10:39 fever (hyperthermia) with Relationship Recent Exposure to Contagious No 12/31/23 08:46 Disease Does patient have nerve No 12/09/24 10:39 stimulator Patient instructed to have device shut off --Does patient have Pacemaker or ICD? When Was Last Pacemaker Check QUESTION #4 FULL TEXT: You/Your Family Experience fever (hyperthermia) with Anesthesia Last Oral Intake Last Oral intake: Last Oral Intake NPO since Meds taken in AM with sips of water? Meds patient instructed to take am of surgery PONV PONV - head of marketing analytics: PONV - head of marketing analytics Female Yes 12/09/24 10:39 HX of Motion Sickness Yes 12/09/24 10:39 HX of N/V After Surgery No 12/09/24 10:39 Non-Smoker Yes 12/09/24 10:39 Duration of Surgery greater No 12/09/24 10:39 than 60 minutes Number of Risk Factors 3 12/09/24 10:39 PONV Score Moderate Risk 12/09/24 10:39 Height & Weight Height & Weight: Anesthesia: Height & Weight Height 5 ft 8 in 09/23/24 11:41 Respiratory Assessment Respiratory Assessment - head of marketing analytics: Respiratory Tract Infection Hx - head of marketing analytics Hx Respiratory Tract Infection No 12/09/24 10:39 STOP Sleep Apnea STOP Sleep Apnea - head of marketing analytics: STOP Sleep Apnea - head of marketing analytics Hx Hypertension Yes: NOT CONTROLLED WITH MED 12/09/24 10:39 , recently meds adjusted Hx Sleep Apnea No 12/09/24 10:39 CPAP BIPAP Do you snore loudly (louder Yes 12/09/24 10:39 than talking or can be heard Do you often feel tired/ No 12/09/24 10:39 fatigued/ sleepy during daytime? Has anyone observed you stop No 12/09/24 10:39 breathing during sleep? STOP Results Positive 12/09/24 10:39 QUESTION #5 FULL TEXT : Do you snore loudly (louder than talking or can be heard through closed doors)? 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 Specify any problems Hx of Preganancy in last 3 No 12/09/24 10:39 Months Nurse Filling Out Transfusion [facility] 12/09/24 10:39 & Questions: Date: 12/09/24 12/09/24 10:39 Time: 10:42 12/09/24 10:39 Patient unable to answer at this time (ie. confused, unrespo /Reproduction History /Reproductive History - head of marketing analytics: /Reproductive Hx- head of marketing analytics Hx Now No 12/09/24 10:39 Gestational Age (in weeks): EDC: Hx Hx Para Hx Section SAB No 12/09/24 10:39 [facility] Medical History (Updated 12/09/24 @ 11:08 by Basia García) History of GI bleed Recent URI Rib pain on left side Lumbar radiculopathy, acute Hip pain Uses wheelchair Walker as ambulation aid Ambulates with cane CKD (chronic kidney disease), stage III Restless legs History of edema History of irregular heartbeat Chest pain Acute blood loss anemia Cancer Post-menopausal Anxiety History of steroid therapy Thyroid disease Diabetes Low iron History of renal disease Injury of head and neck Dietary restriction Gastric reflux Former smoker Shortness of breath on exertion Leg cramps History of echocardiogram Hypertension History of heart attack Cardiology follow-up encounter Neuropathy Migraines Carpal tunnel syndrome Anemia Seasonal allergies Foot fracture, right Foot fracture, left Gastroenteritis Infectious mononucleosis Erythromelalgia Hepatitis Small fiber neuropathy Acid reflux Fibromyalgia Osteopenia Rheumatoid arthritis History of diabetes mellitus History of chronic kidney disease History of COVID-19 Home Medications ?Medication ?Instructions ?Recorded ?Last Taken ?Type nystatin 100,000 unit/gram topical 100,000 gm topical PRN PRN Skin 04/02/22 Unknown History powder (Nystop) Cleansing biotin 5,000 mcg disintegrating 15,000 mcg PO DAILY JOYNER PPLEMENT 08/26/22 12/30/23 History tablet vitamin B complex (B 1 tab PO DAILY SUPPLEMENT 12/30/23 History Complex-Vitamin B12 tablet) sennosides 8.6 mg-docusate sodium 2 tab PO BID PRN PRN Constipation 11/27/22 11/26/23 Rx 50 mg tablet (Stool #0 tabs Softener-Stimulant Laxative) fluticasone propionate 50 1 spray intranasal BID PRN S inus 12/05/22 12/04/22 History mcg/actuation nasal Symptoms spray,suspension hydroxychloroquine 200 mg tablet 200 mg PO BID RA #60 tabs 05/27/23 12/30/23 Rx rosuvastatin 10 mg tablet (Crestor) 20 mg PO QHS SILVER STEROL 06/11/23 12/30/23 History amlodipine 10 mg tablet 10 mg PO BID BP #90 tabs 12/31/23 Rx aspirin 81 mg capsule 81 mg PO DAILY 11/14/2312/11 History clopidogrel 75 mg tablet 75 mg PO DAILY BLOOD THINNER #90 11/24/23 12/30/23 Rx tabs glipizide 10 mg tablet, extended 10 mg PO BID DIABETIC #180 tabs 12/10/23 12/30/23 Rx release 24 hr zinc gluconate 50 mg tablet 50 mg PO DAILY 01/28/24 Un known History ascorbic acid (vitamin C) 500 mg 500 mg PO QDAY Unknown History capsule carvedilol 3.125 mg tablet 3.125 mg PO BID BP/HEART Unknown History levothyroxine 88 mcg tablet 88 mcg PO DAILY THYROID #9 0 tabs 09/01/24 Unknown Rx (Euthyrox) cholecalciferol (vitamin D3) 25 25 mcg PO QDAY 5 Unknown History mcg (1,000 unit) capsule oxycodone-acetaminophen 5 mg-325 1 tab PO Q6H PRN pain 10/28/24 Unknown History mg tablet ondansetron HCl 8 mg tablet 8 mg PO Q6H PRN nausea and 11/02/24 Unknown Rx vomiting #20 tabs venlafaxine 150 mg 150 mg PO DAILY #90 caps 03/06 Unknown Rx capsule,extended release 24 hr (Effexor XR) venlafaxine 75 mg tablet 75 mg PO DAILY #90 tabs 03/06 Unknown Rx famotidine 40 mg tablet 40 mg PO QHS #90 tabs Unknown Rx Lactobacillus acidophilus and 4 cap PO DAILY 12/09/24 Unknown History rhamnosus 15 billion cell capsule (Probiotic) lisinopril 5 mg tablet 10 mg PO QHS BP 12/09/24 Unk nown History Allergy/AdvReac Type Severity Reaction Status Date / Time iron Allergy Severe Other Verified 12/09/24 11:03 Iodinated Contrast Media Allergy Intermediate Hives Verified 12/09/24 11:03 (IVP dye) Seasonal Allergies: Uncoded Allergy Mild Hives Verified 12/09/24 11:03 levofloxacin (From Levaquin) Allergy PT UNSURE Verified 12/09/24 11:03 OF REACTION liraglutide (From Victoza) Allergy dehydration Verified 12/09/24 11:03 - ended up in hospital methylprednisolone (From AdvReac Intermediate HALLUCINATI Verified 12/09/24 11:03 Solu-Medrol) ONS adhesive AdvReac Rash Verified 12/09/24 11:03 hydrochlorothiazide AdvReac pt can tke Verified 12/09/24 11:03 tablet, but not capsule hydrocodone AdvReac Itching Verified 12/09/24 11:03 oxycodone (From Percocet) AdvReac Itching Verified 12/09/24 11:03 Family History Grandfather Cancer Heart disease Father Cancer Heart disease Diabetes Uncle Cancer Aunt Cancer Brother Heart disease Surgical History History of esophagogastroduodenoscopy (EGD) History of cardiac catheterization History of colectomy Hx of colonoscopy Hx of release of tendon History of lumbar laminectomy Hx of fusion of cervical spine Hx of cholecystectomy Hx of appendectomy Hx of tonsillectomy H/O heart artery stent Social History household members: family housing: house number of children: 0 current occupational status: disabled Smoking Status: Former smoker alcohol intake: never substance use type: does not use caffeine: Yes Type: carbonated beverages and tea what type of physical activity do you participate in: none seatbelt use: always do you feel safe at home: Yes additional social history: Audit: Pertinent Findings HISTORY of Pertinent Findings History of Pertinent Findings: EKG Pertinent Findings EKG Perinent findings February 16, 2024. Sinus 12/09/24 22:02 bradycardia with first- degree AV block. Possible left atrial enlargement. Left axis deviation. Right bundle branch block. Possible lateral infarct. And inferior infarct age undetermined. Consult Pertinent Findings Consult pertinent findings September 22, 2024. 12/09/24 22:17 [place]. 1. Coronary artery disease?stable. Continue current cardiac medications. 2. Chest pain?pleuritis from infection?patient has been through 2 courses of antibiotics and a course of steroids. She is apparently getting a little bit better. 3. X-ray and labs ordered. Pertinent Findings Heart catheterization pertinent findings: 2021. Coronary stent placed. June 06, 2023. No culprit lesion. Nonobstructive coronary artery disease. Chronic total occlusion of a marginal branch with collaterals. Additional pertinent findings: CT of chest. 10/19/2024. 1. Lungs are normal. No demonstrated pleural abnormality. 2. Coronary artery calcification. Recommendation Anesthesia Recommendation Anesthesia recommendation: OPTIMIZED for anesthesia
[2024-12-14] VITALS (7 sets, daily range): BP systolic 101–120; BP diastolic 54–61; PULSE 57–60; RESP 16; TEMP 36.2–37.1; O2SAT 94–96; BMI 28.7
--- NOTE | 2024-12-14 06:43 | PCM.PRE.AN2 ---
ASA Classification* ASA Classification ASA Classification: 3 Assessment & Plan Anesthesia* Anesthesia Assessment Anesthesia Assessment: Discussed sedation and/or anesthesia options, risks, benefits, and alternatives with patient/parents/legal guardian/POA. Questions invited. The patient/parents/legal guardian/POA seems to understand and agrees to proceed with anesthesia plan. Reviewed the physical assessment, medical history, allergy history and patient home medications list prior to surgery/procedure/anesthetic and documented any changes. Performed airway and anesthesia risk assessments. Anesthesia Type Anesthesia Type: MAC History Source History Obtained from:: Patient and Chart Anesthesia Focused Assessment* Temperature: 98.8 F Pulse Rate: 60 Blood Pressure: 120/54 Respiratory Rate: 16 Pulse Ox: 96 Oxygen Delivery Method: Room Air Airway Assessment Mouth opens: >3 cm Mallampati Score: IV Teeth Condition: Caps/Crowns (Multiple caps on incisors upper and lower jaw.) and Missing (Several missing teeth. Rest are tight.) Neck Range of motion (ROM): Limited ROM (Decreased extension secondary to surgery.) Focused Labs Anesthesia Preop lab: CBC WBC 10.8 K/mm3 (4.4-11.0) 07/20/24 08:57 07/20/24 RBC 4.15 M/mm3 (4.2-5.4) L 07/20/24 08:57 07/20/24 Hgb 11.4 g/dL (12.0-15.0) L 07/20/24 08:57 07/20/24 Hct 36.1 % (37-47) L 07/20/24 08:57 07/20/24 Plt Count 214 K/mm3 (150-450) 07/20/24 08:57 07/20/24 CHEMISTRY Potassium 4.2 mmol/L (3.5-5.1) 07/20/24 08:57 07/20/24 Sodium 141 mmol/L (136-145) 07/20/24 08:57 07/20/24 Magnesium 1.7 mg/dL (1.6-2.6) 07/20/24 08:57 07/20/24 Phosphorus 4.6 mg/dL (2.5-4.9) 11/24/22 05:45 11/24/22 BUN 29 mg/dL (7-18) H 07/20/24 08:57 07/20/24 Creatinine 1.24 mg/dL (0.55-1.02) H 07/20/24 08:57 07/20/24 Glucose 171 mg/dL (74-106) H 07/20/24 08:57 07/20/24 POC Glucose 183 mg/dL (74-106) H 12/31/23 08:42 12/31/23 TSH 1.70 uIU/mL (0.358-3.74) 04/22/24 08:46 04/22/24 COAG PT 13.4 SECONDS (11.7-14.9) 12/05/22 06:27 12/05/22 Pre-Assessment Diagnosis/Proposed Procedure Planned Operative Procedure(s): COLONOSCOPY Anesthesia History 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 When Was Last Pacemaker Check QUESTION #4 FULL TEXT: You/Your Family Experience fever (hyperthermia) with Anesthesia Last Oral Intake Last Oral intake: Last Oral Intake NPO since 04:00 12/14/24 06:14 Meds taken in AM with sips of Yes 12/14/24 06:14 water? Meds patient instructed to see medlist 12/14/24 06:14 take am of surgery Any additional information?: Yes NPO since: 04:00 (Patient finished prep at 4 AM.) Meds taken in AM with sips of water?: Yes PONV PONV - stoker erector and servicer: PONV - stoker erector and servicer Female Yes 12/09/24 10:39 HX of Motion Sickness Yes 12/09/24 10:39 HX of N/V After Surgery No 12/09/24 10:39 Non-Smoker Yes 12/09/24 10:39 Duration of Surgery greater No 12/09/24 10:39 than 60 minutes Number of Risk Factors 3 12/09/24 10:39 PONV Score Moderate Risk 12/09/24 10:39 Height & Weight Height & Weight: Anesthesia: Height & Weight Height 5 ft 8 in 12/14/24 06:14 Weight: 85.729 kg 12/14/24 06:14 Body Mass Index (BMI) 28.7 12/14/24 06:14 Respiratory Assessment Respiratory Assessment - stoker erector and servicer: Respiratory Tract Infection Hx - stoker erector and servicer Hx Respiratory Tract Infection No 12/09/24 10:39 STOP Sleep Apnea STOP Sleep Apnea - stoker erector and servicer: STOP Sleep Apnea - stoker erector and servicer Hx Hypertension Yes: NOT CONTROLLED WITH MED 12/09/24 10:39 , recently meds adjusted Hx Sleep Apnea No 12/09/24 10:39 CPAP BIPAP Do you snore loudly (louder Yes 12/09/24 10:39 than talking or can be heard Do you often feel tired/ No 12/09/24 10:39 fatigued/ sleepy during daytime? Has anyone observed you stop No 12/09/24 10:39 breathing during sleep? STOP Results Positive 12/09/24 10:39 QUESTION #5 FULL TEXT : Do you snore loudly (louder than talking or can be heard through closed doors)? 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 Specify any problems Hx of Preganancy in last 3 No 12/09/24 10:39 Months Nurse Filling Out Transfusion MGRIFFITH 12/09/24 10:39 & Questions: Date: 12/09/24 12/09/24 10:39 Time: 10:42 12/09/24 10:39 Patient unable to answer at this time (ie. confused, unrespo /Reproduction History /Reproductive History - stoker erector and servicer: /Reproductive Hx- stoker erector and servicer Hx Now No 12/09/24 10:39 Gestational Age (in weeks): EDC: Hx Hx Para Hx Section SAB No 12/09/24 10:39 [facility] Medical History History of GI bleed Recent URI Rib pain on left side Lumbar radiculopathy, acute Hip pain Uses wheelchair Walker as ambulation aid Ambulates with cane CKD (chronic kidney disease), stage III Restless legs History of edema History of irregular heartbeat Chest pain Acute blood loss anemia Cancer Post-menopausal Anxiety History of steroid therapy Thyroid disease Diabetes Low iron History of renal disease Injury of head and neck Dietary restriction Gastric reflux Former smoker Shortness of breath on exertion Leg cramps History of echocardiogram Hypertension History of heart attack Cardiology follow-up encounter Neuropathy Migraines Carpal tunnel syndrome Anemia Seasonal allergies Foot fracture, right Foot fracture, left Gastroenteritis Infectious mononucleosis Erythromelalgia Hepatitis Small fiber neuropathy Acid reflux Fibromyalgia Osteopenia Rheumatoid arthritis History of diabetes mellitus History of chronic kidney disease History of COVID-19 Home Medications ?Medication ?Instructions ?Recorded ?Last Taken ?Type nystatin 100,000 unit/gram topical 100,000 gm topical PRN PRN Skin 04/02/22 Unknown History powder (Nystop) Cleansing biotin 5,000 mcg disintegrating 15,000 mcg PO DAILY SUPPLEMENT 08/26/22 12/30/23 History tablet vitamin B complex (B 1 tab PO DAILY SUPPLEMENT 08/26/22 12/30/23 History Complex-Vitamin B12 tablet) sennosides 8.6 mg-docusate sodium 2 tab PO BID PRN PRN Constipation 11/27/22 11/26/23 Rx 50 mg tablet (Stool #0 tabs Softener-Stimulant Laxative) fluticasone propionate 50 1 spray intranasal BID PRN Sinus 12/05/22 12/04/22 History mcg/actuation nasal Symptoms spray,suspension hydroxychloroquine 200 mg tablet 200 mg PO BID RA #60 tabs 05/27/23 12/30/23 Rx rosuvastatin 10 mg tablet (Crestor) 20 mg PO QHS CHOLESTEROL 06/11/23 12/30/23 History amlodipine 10 mg tablet 10 mg PO BID BP #90 tabs 10/01/23 12/14/24 Rx aspirin 81 mg capsule 81 mg PO DAILY 11/14/23 12/13/24 History clopidogrel 75 mg tablet 75 mg PO DAILY BLOOD THINNER #90 11/24/23 12/10/24 Rx tabs glipizide 10 mg tablet, extended 10 mg PO BID DIABETIC #180 tabs 12/10/23 12/30/23 Rx release 24 hr zinc gluconate 50 mg tablet 50 mg PO DAILY 01/28/24 Unknown History ascorbic acid (vitamin C) 500 mg 500 mg PO QDAY 02/14/24 Unknown History capsule carvedilol 3.125 mg tablet 3.125 mg PO BID BP/HEART 02/14/24 12/14/24 History levothyroxine 88 mcg tablet 88 mcg PO DAILY THYROID #90 tabs 09/01/24 12/14/24 Rx (Euthyrox) cholecalciferol (vitamin D3) 25 25 mcg PO QDAY 10/28/24 Unknown History mcg (1,000 unit) capsule oxycodone-acetaminophen 5 mg-325 1 tab PO Q6H PRN pain 10/28/24 Unknown History mg tablet ondansetron HCl 8 mg tablet 8 mg PO Q6H PRN nausea and 11/02/24 Unknown Rx vomiting #20 tabs venlafaxine 150 mg 150 mg PO DAILY #90 caps 11/17/24 Unknown Rx capsule,extended release 24 hr (Effexor XR) venlafaxine 75 mg tablet 75 mg PO DAILY #90 tabs 11/17/24 Unknown Rx famotidine 40 mg tablet 40 mg PO QHS #90 tabs 11/25/24 Unknown Rx Lactobacillus acidophilus and 4 cap PO DAILY 12/09/24 Unknown History rhamnosus 15 billion cell capsule (Probiotic) lisinopril 5 mg tablet 10 mg PO QHS BP 12/09/24 Unknown History Allergy/AdvReac Type Severity Reaction Status Date / Time iron Allergy Severe Other Verified 12/14/24 06:09 Iodinated Contrast Media Allergy Intermediate Hives Verified 12/14/24 06:09 (IVP dye) Seasonal Allergies: Uncoded Allergy Mild Hives Verified 12/14/24 06:09 levofloxacin (From Levaquin) Allergy PT UNSURE Verified 12/14/24 06:09 OF REACTION liraglutide (From Victoza) Allergy dehydration Verified 12/14/24 06:09 - ended up in hospital methylprednisolone (From AdvReac Intermediate HALLUCINATI Verified 12/14/24 06:09 Solu-Medrol) ONS adhesive AdvReac Rash Verified 12/14/24 06:09 adhesive tape AdvReac Rash Verified 12/14/24 06:09 hydrochlorothiazide AdvReac pt can tke Verified 12/09/24 11:03 tablet, but not capsule hydrocodone AdvReac Itching Verified 12/14/24 06:09 oxycodone (From Percocet) AdvReac Itching Verified 12/14/24 06:09 Family History Grandfather Cancer Heart disease Father Cancer Heart disease Diabetes Uncle Cancer Aunt Cancer Brother Heart disease Surgical History History of esophagogastroduodenoscopy (EGD) History of cardiac catheterization History of colectomy Hx of colonoscopy Hx of release of tendon History of lumbar laminectomy Hx of fusion of cervical spine Hx of cholecystectomy Hx of appendectomy Hx of tonsillectomy H/O heart artery stent Social History household members: family housing: house number of children: 0 current occupational status: disabled Smoking Status: Former smoker alcohol intake: never substance use type: does not use caffeine: Yes Type: carbonated beverages and tea what type of physical activity do you participate in: none seatbelt use: always do you feel safe at home: Yes additional social history: Review of Systems (Anesthesia) ROS Narrative System reviewed and no additional complaints, except as documented.
--- NOTE | 2024-12-14 06:46 | PCM.HP.STD ---
HPI - General General Date of Admission: 12/14/24 Date of Service: 12/14/24 Chief Complaint: Colon cancer HPI Narrative ESTELLA SU, is a 64 F who presents today for surveillance colonoscopy because of history of colon cancer. WSA established 10.01.22 with abd pain and iron deficiency anemia. ?EGD and colonoscopy 11.01.22. EGD without visual abnormality, pathology gastritis. H.Pylori negative Colonoscopy hemorrhoids on perianal exam; likely malignant tumor at hepatic flexure; malignant-appearing tumor in colon, tattooed. Pathology invasive well differentiated adenocarcinoma. CT abd/pel 11.06.22?hepatic hypodense 7.6mm nodule, cyst; renal cysts; hepatic flexure mass 4.4cx3.8cm; moderate fecal material; borderline retroperitoneal lymphadenopathy <10mm. ?Laparoscopic right colectomy 11.12.22?noting intra-abdominal adhesions with lysis. Discharged 11.13.22 Pathology invasive moderately differentiated adenocarcinoma. [facility] Hospitalization 11.15.22-11.19.22. With postop abdominal pain/nausea. Admitted for management. Treated for postop ileus with bowel rest and IVF. ?CT abd/pel?11.15.22 stable hepatic and renal cysts; fluid distention of small bowel down to TI, ?ileus; s/p right hemicolectomy with increased peritoneal fat markings. *[facility] Hospitalization 11.23.22-11.27.22. ED presentation with BRBPR with concern for orthostatic hypotension. Surgery consulted 11.23.22 with colonoscopy 11.24.22. GI consulted 11.23.22 for GIB recommending repeat colonoscopy Colonoscopy 11.24.22 Dr. Vasquez?mucosal ulceration; two 1-2mm TA polyps; patent end-to side colo-colonic anastomosis with friable mucosa, hemorrhagic appearance, ulceration and intact staple liver, APC; rectal pathology noting hyperplastic changes. CTA 11.25.22?atherosclerotic calcifications of aorta; coarse calcification of celiac trunk/mesenteric/renal arteries with moderate right renal artery stenosis; moderate calcifications of coronary arteries and left bifurcation, presumed stents in right coronary artery. Thick walled small bowel and colon; trace mesenteric fluid of right, inferior to anastomosis; mild mesenteric adenopathy; improved small bowel distention and increased colon contents without evidence of high-grade SBO; moderate fluid, gas in transverse colon, RS junction, sigmoid; collapsed rectum Colonoscopy 11.26.22 [facility]?patent end-to-side ileo-colonic anastomosis with health mucosa; single bleeding AVM, injected, heater probe, clip placed, tattooed; blood in anus and RS colon. No specimens. [facility] hospitalization 12.05.22-12.09.22. ED presentation with rectal bleeding. hgb 5.8 and concern for repeated GIB she was admitted. GI consulted same day with colonoscopy 12.06.22 ?CTA 11.25.22?hepatic cyst 8.9mm with fatty infiltration; renal cyst 3.2cm. ?Colonoscopy 12.06.22 [facility]?patent end-to-side ileo-colonic anastomosis with hemorrhagic appearance and intact staple line, APC, clips. No specimens. OV 01.10.23 feels she is doing well at this time. She has been having difficulty with headaches and will be seeing ENT soon for this. ?Colonoscopy 11.27.23?mild rectal prolapse; 7mm TA polyp; [id number] ileo-colonic anastomosis with erosion and erythema. ? OV 12.03.23- Pt states for the last few months has felt a heaviness in chest after she eats. Food gets stuck. Thinks she might have a hiatal hernia. Also reports an increase in heartburn. Takes Famotidine 40mg qd. EGD 12.17.23 Abnormal esophageal motility, suspicious for esophageal spasm. Chronic gastritis. Biopsied. Normal second portion of the duodenum. Biopsies were taken with a cold forceps for evaluation of eosinophilic esophagitis. EGD 12.31.23 Tortuous esophagus. Erythematous mucosa in the gastric body. Biopsied. Two duodenal polyps. Resected and retrieved. OV 04.09.24 pt reports continued symptoms of nausea, alternating diarrhea and constipation, fecal incontinence, abdominal pain, bloating, and feeling like food is sitting in her throat. Pt continued with famotidine. Hgb is up to 11.6 Coronary artery disease: Patient had stent placed in February.? Hold clopidogrel for 48 hours.? Continue to hold aspirin.? Continue with carvedilol Diabetes mellitus type 2: Hold glipizide.? Sliding scale insulin Rheumatoid arthritis: Continue with hydroxychloroquine Hypothyroidism: Continue levothyroxine Hypertension: Stable.? Continue with lisinopril and a [facility] Medical History History of GI bleed Recent URI Rib pain on left side Lumbar radiculopathy, acute Hip pain Uses wheelchair Walker as ambulation aid Ambulates with cane CKD (chronic kidney disease), stage III Restless legs History of edema History of irregular heartbeat Chest pain Acute blood loss anemia Cancer Post-menopausal Anxiety History of steroid therapy Thyroid disease Diabetes Low iron History of renal disease Injury of head and neck Dietary restriction Gastric reflux Former smoker Shortness of breath on exertion Leg cramps History of echocardiogram Hypertension History of heart attack Cardiology follow-up encounter Neuropathy Migraines Carpal tunnel syndrome Anemia Seasonal allergies Foot fracture, right Foot fracture, left Gastroenteritis Infectious mononucleosis Erythromelalgia Hepatitis Small fiber neuropathy Acid reflux Fibromyalgia Osteopenia Rheumatoid arthritis History of diabetes mellitus History of chronic kidney disease History of COVID-19 Home Medications ?Medication ?Instructions ?Recorded ?Last Taken ?Type nystatin 100,000 unit/gram topical 100,000 gm topical PRN PRN Skin 04/02/22 Unknown History powder (Nystop) Cleansing biotin 5,000 mcg disintegrating 15,000 mcg PO DAILY SUPPLEMENT 08/26/22 12/30/23 History tablet vitamin B complex (B 1 tab PO DAILY SUPPLEMENT 08/26/22 12/30/23 History Complex-Vitamin B12 tablet) sennosides 8.6 mg-docusate sodium 2 tab PO BID PRN PRN Constipation 11/27/22 11/26/23 Rx 50 mg tablet (Stool #0 tabs Softener-Stimulant Laxative) fluticasone propionate 50 1 spray intranasal BID PRN Sinus 12/05/22 12/04/22 History mcg/actuation nasal Symptoms spray,suspension hydroxychloroquine 200 mg tablet 200 mg PO BID RA #60 tabs 05/27/23 12/30/23 Rx rosuvastatin 10 mg tablet (Crestor) 20 mg PO QHS CHOLESTEROL 06/11/23 12/30/23 History amlodipine 10 mg tablet 10 mg PO BID BP #90 tabs 10/01/23 12/14/24 Rx aspirin 81 mg capsule 81 mg PO DAILY 11/14/23 12/13/24 History clopidogrel 75 mg tablet 75 mg PO DAILY BLOOD THINNER #90 11/24/23 12/10/24 Rx tabs glipizide 10 mg tablet, extended 10 mg PO BID DIABETIC #180 tabs 12/10/23 12/30/23 Rx release 24 hr zinc gluconate 50 mg tablet 50 mg PO DAILY 01/28/24 Unknown History ascorbic acid (vitamin C) 500 mg 500 mg PO QDAY 02/14/24 Unknown History capsule carvedilol 3.125 mg tablet 3.125 mg PO BID BP/HEART 02/14/24 12/14/24 History levothyroxine 88 mcg tablet 88 mcg PO DAILY THYROID #90 tabs 09/01/24 12/14/24 Rx (Euthyrox) cholecalciferol (vitamin D3) 25 25 mcg PO QDAY 10/28/24 Unknown History mcg (1,000 unit) capsule oxycodone-acetaminophen 5 mg-325 1 tab PO Q6H PRN pain 10/28/24 Unknown History mg tablet ondansetron HCl 8 mg tablet 8 mg PO Q6H PRN nausea and 11/02/24 Unknown Rx vomiting #20 tabs venlafaxine 150 mg 150 mg PO DAILY #90 caps 11/17/24 Unknown Rx capsule,extended release 24 hr (Effexor XR) venlafaxine 75 mg tablet 75 mg PO DAILY #90 tabs 11/17/24 Unknown Rx famotidine 40 mg tablet 40 mg PO QHS #90 tabs 11/25/24 Unknown Rx Lactobacillus acidophilus and 4 cap PO DAILY 12/09/24 Unknown History rhamnosus 15 billion cell capsule (Probiotic) lisinopril 5 mg tablet 10 mg PO QHS BP 12/09/24 Unknown History Allergy/AdvReac Type Severity Reaction Status Date / Time iron Allergy Severe Other Verified 12/14/24 06:09 Iodinated Contrast Media Allergy Intermediate Hives Verified 12/14/24 06:09 (IVP dye) Seasonal Allergies: Uncoded Allergy Mild Hives Verified 12/14/24 06:09 levofloxacin (From Levaquin) Allergy PT UNSURE Verified 12/14/24 06:09 OF REACTION liraglutide (From Victoza) Allergy dehydration Verified 12/14/24 06:09 - ended up in hospital methylprednisolone (From AdvReac Intermediate HALLUCINATI Verified 12/14/24 06:09 Solu-Medrol) ONS adhesive AdvReac Rash Verified 12/14/24 06:09 adhesive tape AdvReac Rash Verified 12/14/24 06:09 hydrochlorothiazide AdvReac pt can tke Verified 12/09/24 11:03 tablet, but not capsule hydrocodone AdvReac Itching Verified 12/14/24 06:09 oxycodone (From Percocet) AdvReac Itching Verified 12/14/24 06:09 Family History Grandfather Cancer Heart disease Father Cancer Heart disease Diabetes Uncle Cancer Aunt Cancer Brother Heart disease Surgical History History of esophagogastroduodenoscopy (EGD) History of cardiac catheterization History of colectomy Hx of colonoscopy Hx of release of tendon History of lumbar laminectomy Hx of fusion of cervical spine Hx of cholecystectomy Hx of appendectomy Hx of tonsillectomy H/O heart artery stent Social History household members: family housing: house number of children: 0 current occupational status: disabled Smoking Status: Former smoker alcohol intake: never substance use type: does not use caffeine: Yes Type: carbonated beverages and tea what type of physical activity do you participate in: none seatbelt use: always do you feel safe at home: Yes additional social history: ROS Constitutional Constitutional: Denies fatigue, fever(s), poor appetite, weight gain or weight loss Gastrointestinal Gastrointestinal: Denies belching, bloating, change in bowel habits, change in stool character, chewing difficulty, coffee ground emesis, constipation, cramping, diarrhea, dyspepsia, dysphagia, early satiety, excessive flatus, fecal incontinence, heartburn, hematemesis, hematochezia, hemorrhoids, loose stools, melena, nausea, odynophagia, rectal bleeding, tenesmus, vomiting or weight changes Vital Signs Vital Signs Vital Signs: 12/14/24 06:14 12/14/24 06:14 Temperature 98.8 F Temperature Source Temporal Pulse Rate 60 Respiratory Rate 16 Respiratory Pattern Normal Blood Pressure 120/54 L Blood Pressure Mean 76 Blood Pressure Source Monitor Blood Pressure Position Semi-Fowlers Blood Pressure Location Right Arm Pulse Ox 96 Oxygen Delivery Method Room Air Weight Weight: 189 lb Body Mass Index (BMI) 28.7 Physical Exam Const alert, oriented x3, no apparent distress and healthy appearing General Appearance: cooperative GI normal to inspection, nondistended, normoactive bowel sounds, soft to palpation, non-tender and non-distended Percussion: normal to percussion Rectal Exam: deferred Assessment & Plan Assessment/Plan (1) Colon cancer: QUALIFIERS: Colon location: ascending Qualified Code(s): C18.2 - Malignant neoplasm of ascending colon PLAN: Assessment and Plan Assessment and Plan (1) Colon cancer: Status: Chronic Qualifiers: Colon location: ascending Qualified Code(s): C18.2 - Malignant neoplasm of ascending colon (2) Acute lower gastrointestinal bleeding: Status: Resolved Plan: We reviewed her colonoscopies, biopsies (tubular adenomas); recommended repeat colonoscopy one yr No further blood per rectum Discussed meds, she is willing to remain on pantoprazole 40 mg daily for 2 mos She is hoping to be taken off plavix in February has f/u with Dr López next week, she plans to contact his office for lab orders she has f/u with general surgery in 2 wks (3) Chest pain: Status: Acute Plan: She has had full cardiac workup for chest pain and is currently undergoing cardiac rehab. She underwent cardiac catheterization in there was no sign of ischemic changes or vascular abnormalities that needed to be treated with therapeutic intervention. I suspect that her chest pain is noncardiac and possibly esophageal. Differential diagnosis would be esophageal dysmotility disorder, atypical gastroesophageal reflux disease. She should undergo esophageal manometry along with an EGD and 48-hour Haas test. (4) Fecal incontinence: Status: Acute Plan: We will refer her to urology for evaluation of her urinary and fecal incontinence for stimulator.. (5) Leg pain: Status: Acute Plan: We will refer her to neurology for RSD. She will have surveillance colonoscopy today. She was explained alternatives, risk and benefits include not withstanding bleeding, infection, sepsis, perforation, need for charge and . She will have an ASA of 3.
[2024-12-14 06:48] LABS: Bedside Glucose 192 mg/dL (74-106)
--- NOTE | 2024-12-14 07:00 | COLBX_PTH ---
PATIENT: ESTELLA SU LOC: EN U#:[id number] AGE/SX: 64/F ROOM: RE12/14/[address]: Dr. Shaun Suarez DO : 1960 BED: DIS: 12/14/2024 SPEC #: [id number] RECD: 12/14/24 11:51 STATUS: JAYSHREE REMireya #: [id number] LANRE: 12/14/24 07:[address]: Shaun Suarez DEPT: SURGICAL PATHOLOGY RECD BY: Marycarmen De La Vega ENTERED: 12/14/24 12:27 SP TYPE: COLON BX LAURA DR: Dr. Kimi López MD Tissues: A - Ileum, NOS B - Sigmoid colon biopsy Procedures: Surgery Specimen Level IV HEADER OPERATION: Colonoscopy, biopsy PRE-OP DIAGNOSIS: Colon cancer, acute lower gastrointestinal bleeding TISSUE SUBMITTED: A- Terminal ileum biopsy, B- Sigmoid polyp biopsy MICROSCOPIC DIAGNOSIS A. Terminal ileum, biopsy: * Normal villous architecture with acute inflammation. * No granulomas seen. B. Sigmoid colon, polyp, biopsy: * Hyperplastic polyp. MICROSCOPIC DESCRIPTION Slides are reviewed. GROSS DESCRIPTION A. Received in fixative is one container labeled with the patient's name and designated Terminal ileum biopsy. The specimen consists of multiple irregular fragments of light emery soft tissue that in aggregate measure 1.1 x 0.3 x 0.2 cm. The specimen is totally submitted in one cassette. B. Received in fixative is one container labeled with the patient's name and designated Sigmoid polyp biopsy. The specimen consists of two irregular fragments of light emery soft tissue that in aggregate measure 0.7 x 0.3 x 0.2 cm. The specimen is totally submitted in one cassette. 12/14/2024 TC: CPT:56499l6
--- NOTE | 2024-12-14 07:37 | OP.CCLET_ITS ---
12/14/2024 Kimi López [facility] [address] [place] [address] Re : Colonoscopy procedure for Lisbeth Craven Dear Dr. López This procedure was performed on Saturday, December 14, 2024. My impressions and recommendations are as follows: Impressions : - One 5 mm polyp in the sigmoid colon, removed with a cold snare. Resected and retrieved. - Patent end-to-side ileo-colonic anastomosis, characterized by healthy appearing mucosa. - Mild inflammation was found in the ileum secondary to ileitis. Biopsied. Recommendations : - Discharge patient to home. - Resume previous diet. - Continue present medications. - Await pathology results. - Repeat colonoscopy in 2 years for surveillance. My findings are described in the full procedure note, which is enclosed. If I can be of further assistance, please feel free to contact me at . Sincerely, Shaun Friend, 12/14/2024 7:37:02 AM This report has been signed electronically.
--- NOTE | 2024-12-14 07:37 | OP.COLON_ITS ---
Patient Name: Lisbeth Craven Procedure Date: 12/14/2024 7:15 AM Date of : 1960 Age: 64 Procedure: Colonoscopy Indications: High risk colon cancer surveillance: Personal history of colon cancer Providers: Shaun Suarez DO Referring MD: Kimi López Medicines: Monitored Anesthesia Care Patient Profile: This is a 64 year old female. Refer to note in patient chart for documentation of history and physical. Last Colonoscopy: 1 year ago. Complications: No immediate complications. Procedure: Pre-Anesthesia Assessment: - Prior to the procedure, a History and Physical was performed, and patient medications and allergies were reviewed. The patient is competent. The risks and benefits of the procedure and the sedation options and risks were discussed with the patient. All questions were answered and informed consent was obtained. Patient identification and proposed procedure were verified by the physician in the pre-procedure area. Mental Status Examination: alert and oriented. Airway Examination: normal oropharyngeal airway and neck mobility. Respiratory Examination: clear to auscultation. CV Examination: normal. Prophylactic Antibiotics: The patient does not require prophylactic antibiotics. Prior Anticoagulants: The patient has taken no anticoagulant or antiplatelet agents except for NSAID medication. ASA Grade Assessment: II - A patient with mild systemic disease. After reviewing the risks and benefits, the patient was deemed in satisfactory condition to undergo the procedure. The anesthesia plan was to use monitored anesthesia care (MAC). Immediately prior to administration of medications, the patient was re-assessed for adequacy to receive sedatives. The heart rate, respiratory rate, oxygen saturations, blood pressure, adequacy of pulmonary ventilation, and response to care were monitored throughout the procedure. The physical status of the patient was re-assessed after the procedure. After I obtained informed consent, the scope was passed under direct vision. Throughout the procedure, the patient's blood pressure, pulse, and oxygen saturations were monitored continuously. The Colonoscope was introduced through the anus and advanced to the ileocolonic anastomosis. The colonoscopy was performed without difficulty. The patient tolerated the procedure well. The quality of the bowel preparation was adequate. The terminal ileum was photographed. Scope In: 7:21:33 AM Scope Withdrawal Time 0 hours 6 minutes 40 seconds Scope Out: 7:32:15 AM Total Procedure Duration Time 0 hours 10 minutes 42 seconds Findings: The perianal and digital rectal examinations were normal. A 5 mm polyp was found in the sigmoid colon. The polyp was sessile. The polyp was removed with a cold snare. Resection and retrieval were complete. Verification of patient identification for the specimen was done. Estimated blood loss was minimal. There was evidence of a prior end-to-side ileo-colonic anastomosis in the ascending colon. This was patent and was characterized by healthy appearing mucosa. Localized mild inflammation characterized by aphthous ulcerations was found in the terminal ileum. Biopsies were taken with a cold forceps for histology. Verification of patient identification for the specimen was done. Estimated blood loss was minimal. Impression: - One 5 mm polyp in the sigmoid colon, removed with a cold snare. Resected and retrieved. - Patent end-to-side ileo-colonic anastomosis, characterized by healthy appearing mucosa. - Mild inflammation was found in the ileum secondary to ileitis. Biopsied. Recommendation: - Discharge patient to home. - Resume previous diet. - Continue present medications. - Await pathology results. - Repeat colonoscopy in 2 years for surveillance. Procedure Code(s): --- Professional --- 47158, Colonoscopy, flexible; with removal of tumor(s), polyp(s), or other lesion(s) by snare technique 18029, 59, Colonoscopy, flexible; with biopsy, single or multiple CPT copyright 2021 [employer]. All rights reserved. The codes documented in this report are preliminary and upon director child abuse therapy review may be revised to meet current compliance requirements. Shaun Suarez DO 12/14/2024 7:37:02 AM This report has been signed electronically. Number of Addenda: 0 Note Initiated On: 12/14/2024 7:15 AM
--- NOTE | 2024-12-14 11:30 | PCM.POST.ANE ---
Anesthesia: Postop Eval I Current Vital Signs Temperature: 97.1 F Pulse Rate: 58 Blood Pressure: 101/54 Respiratory Rate: 16 Pulse Ox: 95 Assessment Airway patent: Yes Spontaneous unlabored respirations: Yes nausea: No Vomiting: No Anesthesia Complication: No Fluid Hydration Crystalloid volume administer (ml): 0 Total IV fluid infused: 0 Progress Note Anesthesia document: Postop Eval 1 completed: Yes
--- NOTE | 2024-12-14 11:41 | POSTOPAN2_ITS ---
Anesthesia Postop Eval I Sum Postop Eval Completion status Anesthesia document: Postop Eval 1 completed: Yes Anesthesia Postop Eval I Summary Anesthesia Postop Eval I Summary: Anesthesia Postop Eval I: Assessment Summary Airway patent Yes 12/14/24 11:30 STRAIGHT RULING MACHINE OPERATOR.CSIR Spontaneous unlabored Yes 12/14/24 11:30 STRAIGHT RULING MACHINE OPERATOR.CSIR respirations Mental status nausea No 12/14/24 11:30 STRAIGHT RULING MACHINE OPERATOR.CSIR Vomiting No 12/14/24 11:30 STRAIGHT RULING MACHINE OPERATOR.CSIR Anesthesia Postop Eval I: Fluid Summary Crystalloid volume administer 0 12/14/24 11:30 STRAIGHT RULING MACHINE OPERATOR.CSIR (ml) Colloids volume administered ( ml) Blood Product volume administered (ml) Total IV fluid infused 0 12/14/24 11:30 STRAIGHT RULING MACHINE OPERATOR.CSIR Anesthesia Postop Eval I: Summary Notes Anesthesia Complication No 12/14/24 11:30 STRAIGHT RULING MACHINE OPERATOR.CSIR Anesthesia Complication Comment: Post-operative progress note Anesthesia: Postop Eval II Evaluation Mental status: Awake Pain Level: 0 nausea: No Vomiting: No
--- NOTE | 2024-12-14 11:41 | PCM.POSTANE2 ---
Anesthesia Postop Eval I Sum Postop Eval Completion status Anesthesia document: Postop Eval 1 completed: Yes Anesthesia Postop Eval I Summary Anesthesia Postop Eval I Summary: Anesthesia Postop Eval I: Assessment Summary Airway patent Yes 12/14/24 11:30 EMT DRIVER.CSIR Spontaneous unlabored Yes 12/14/24 11:30 EMT DRIVER.CSIR respirations Mental status nausea No 12/14/24 11:30 EMT DRIVER.CSIR Vomiting No 12/14/24 11:30 EMT DRIVER.CSIR Anesthesia Postop Eval I: Fluid Summary Crystalloid volume administer 0 12/14/24 11:30 EMT DRIVER.CSIR (ml) Colloids volume administered ( ml) Blood Product volume administered (ml) Total IV fluid infused 0 12/14/24 11:30 EMT DRIVER.CSIR Anesthesia Postop Eval I: Summary Notes Anesthesia Complication No 12/14/24 11:30 EMT DRIVER.CSIR Anesthesia Complication Comment: Post-operative progress note Anesthesia: Postop Eval II Evaluation Mental status: Awake Pain Level: 0 nausea: No Vomiting: No
== END 2024-12-14 08:15 | disposition home or self-care (01) ==
LOC: EN 05:46 → AC 05:47
PROVIDERS: PCP Internal Medicine; Referring Provider Internal Medicine; Visit Provider Internal Medicine Gastroenterology
PROC: 0DJD8ZZ Inspection of Lower Intestinal Tract, Via Natural or Artificial Opening Endoscopic (ICD-10-PCS; CPT 45378; principal; 2024-12-14 06:55)
DX: Z12.11 Encounter for screening for malignant neoplasm of colon (principal); M06.9 Rheumatoid arthritis, unspecified; E11.22 Type 2 diabetes mellitus with diabetic chronic kidney disease; E11.40 Type 2 diabetes mellitus with diabetic neuropathy, unspecified; N18.30 Chronic kidney disease, stage 3 unspecified; K21.9 Gastro-esophageal reflux disease without esophagitis; M79.7 Fibromyalgia; D50.9 Iron deficiency anemia, unspecified; I25.10 Atherosclerotic heart disease of native coronary artery without angina pectoris; E03.9 Hypothyroidism, unspecified; K63.5 Polyp of colon; I12.9 Hypertensive chronic kidney disease with stage 1 through stage 4 chronic kidney disease, or unspecified chronic kidney disease; Z79.82 Long term (current) use of aspirin; Z79.899 Other long term (current) drug therapy; Z87.891 Personal history of nicotine dependence; Z86.16 Personal history of COVID-19; Z95.5 Presence of coronary angioplasty implant and graft; Z85.038 Personal history of other malignant neoplasm of large intestine
CPT/HCPCS: 45385; 45380; 82962; 88305; A4216

== ENCOUNTER → 2025-02-28 | Outpatient (CLI) | payer MEDICAID, SELFPAY ==
[2023-11-24 08:48] VITALS: BMI 28.5
== END | disposition home or self-care (01) ==
LOC: LAB 15:12
PROVIDERS: PCP Internal Medicine; Referring Provider Internal Medicine; Visit Provider Internal Medicine
DX: R11.0 Nausea (principal)
CPT/HCPCS: 81050; 83497

== ENCOUNTER 2025-03-04 13:00 | Outpatient (RCR) | payer MEDICAID, SELFPAY ==
[2023-11-24 08:48] VITALS: BMI 28.5
--- NOTE | 2025-02-23 15:23 | HP.PTEVAL_ITS ---
Patient's Visit Information Visit Information Visit Information: LISBETH SU is a 64 year old F referred to Physical Therapy by Dr. Fred Cotton DO with a diagnosis of L hip pain, L/s DDD. Date of Evaluation: 02/23/25 Physical Therapist: Howard Leon, DPT, OCS, CSCS Visit Plan Frequency: 3x /Week Duration: 4-6 Weeks Plan: 3x/week for 4-6 weeks for pool based : quad, HS, itb stretches, hip strength, hip ROM rotations and flexion/ext, LB ROM and core strengthening. Work to I in pool or with HEP for exit strategy, pt needs to move more Subjective Subjective: Pain is L groin and lateral leg and L LB. Has been there long time, not sure why it started. Has h/o back surgeries to clean up discs in 2012. They helped. Sitting is comfortable unless she sits too long, standing hurts, walking hurt more she walks. Hurt bad last night, lies in bed. Sitting around yesterday adn it got worse for no reason. Also has Fibromyalgia. Legs get restless. Dr. kay cleared hip and will see Daly for back. Quit pain doctor as it did not help, recent ablation did not help. Sleep: I don't sleep good due to hip pain and sleep apnea and FM. Basic ADLs: all I but mom can help if painful. Lisbeth cannot stand very long. Hobbies: puzzles, cards. Exercises: no Pain L hip and LB: Pain Intensity (Out of 10): 3 Pain Intensity Range: 0 and 9 Comment: 0 at rest, Objective Objective: L hip antalgia walking into PT avoiding L hip extension adn showing L trendelenberg in gait. Painful groin with ambulating. tender to palaption with PA pressure lumbar and extension giving L Leg pain and groin. lumbar AROM ext max limited and pinful, flexion no problems, SB min deficits and no pincreased pain. L hip arom 90 flexion adn 35 er adn 2 ir all limited by pain, + LEWIS and + FADDIR on L. - slump and - SLR. R hip to 105 flexion, 50 er, 15 ir without pain. knees and ankles WFL B. tightness present B itb, quads and HS at - 35 90/90 tests. reflexes 2/3 patella and achilles B. Sensation WNL to gross light touch B. strength knees and ankles 4/5 and hip 3 abd and ext and 3+ flexion B, pain with L hip abduction. Balance/Special Test Scores Lower Extremity Functional Score: 5 Goals Goal 1:: Pain in L hip groin and LB 75% improved at 2/10 at worst. Goal Time Frame: 4-6 Weeks Goal 2:: Pt feel like activity is tolerable and manageable for ADLs including mowing lawn Goal Time Frame: 4-6 Weeks Goal 3:: I appropraite HEP pool or home to limit future problems Goal Time Frame: 4-6 Weeks Goal 4:: LEFS 45 Goal Time Frame: 4-6 Weeks Goal 5:: sleep without waking due to pain and get out of bed comfortably Goal Time Frame: 4-6 Weeks Rehabilitation Potential Physical Therapy Diagnosis: weakness and limtied ROM and pain limiting comfortable funciton and activity. Rehabilitation Potential: Questionable Anticipated Interventions Patient/Client Instruction: Educate patient on: Condition and Plan of Care For the Purpose of:: To decrease pain, To increase ROM, To improve nutrient delivery to tissue, To improve muscle performance and motor function and To increase tolerance to activity/condition/position Therapeutic Exercise to Include: Strength training, Flexibilty training, In an aquatic setting, Passive ROM and Active ROM For the Purpose of:: To decrease pain, To increase ROM, To improve nutrient delivery to tissue, To improve muscle performance and motor function, To increase tolerance to activity/condition/position, To improve ability of physical actions for home/community/work/leisure and To improve gait and locomotor functions Text: Thank you for the opportunity to evaluate your patient. For Medicare and Medicare HMO plans, please review the plan of care and approve it. It will need to be FAXED BACK to us at [phone] for Medicare purposes. For Medicare only, by signing this I certify the plan of care. Please let me know if there are questions or concerns regarding this plan of care. Physician Signature: Date:
--- NOTE | 2025-04-18 15:08 | HP.PT.NRP ---
Patient Information Patient Information: ESTELLA SU was seen in my office for initial evaluation on 02/23/25. The following Plan of Care was established for this patient: POC Established Initial Frequency: 3x /Week Initial Duration: 4-6 Weeks Anticipated Interventions Patient/Client Instruction: Educate patient on: Condition and Plan of Care For the Purpose of:: To decrease pain, To increase ROM, To improve nutrient delivery to tissue, To improve muscle performance and motor function and To increase tolerance to activity/condition/position Therapeutic Exercise to Include: Strength training, Flexibilty training, In an aquatic setting, Passive ROM and Active ROM For the Purpose of:: To decrease pain, To increase ROM, To improve nutrient delivery to tissue, To improve muscle performance and motor function, To increase tolerance to activity/condition/position, To improve ability of physical actions for home/community/work/leisure and To improve gait and locomotor functions Last Seen Last Seen: This patient was last seen in our office 03/04/25. Pertinent comments regarding their Physical therapy will appear below: Pt seen 3 visits of POC but did not attend any further visits. At this point, it has been over 6 weeks and I will discontinue due to nonattendance. At this point I will be discontinuing this patient from physical therapy. I would be happy to see this patient again in the future if found appropriate by the physician. Thank you! Howard Leon, DPT, OCS, CSCS Balance/Gait/Functional tests Balance/Special Test Scores Lower Extremity Functional Score: 5
== END 2025-03-04 19:00 | disposition home or self-care (01) ==
LOC: PT 13:00
PROVIDERS: PCP Internal Medicine; Referring Provider Orthopaedic Surgery; Visit Provider Orthopaedic Surgery
DX: M25.552 Pain in left hip (principal); M51.369 Other intervertebral disc degeneration, lumbar region without mention of lumbar back pain or lower extremity pain
CPT/HCPCS: 97113; 97163

== ENCOUNTER 2025-03-05 13:40 | Emergency (ER) | payer MEDICAID, SELFPAY ==
[2023-11-24 08:48] VITALS: BMI 28.5
[2025-03-05 13:41] VITALS: BP 170/59; PULSE 56; RESP 16; TEMP 36.9; O2SAT 99
--- NOTE | 2025-03-05 14:37 | ED.VIS.LOWEX ---
HPI <Dr. Howard Astorga DO - Last Filed: 03/06/25 09:29> History of Present Illness HPI Narrative: Patient presents with pain and swelling to her left foot that has been getting worse over the past week. Patient states it is gradually getting worse. Patient describes her pain as sharp. Patient states it is worse with walking and with standing. Patient states nothing makes it better. Patient denies any trauma or injury. Patient admits to subjective fevers. Patient states her temperature at home was 99.5. Patient admits to some redness over the top of her left foot. Chief Complaint: Lower Extremity Injury Informant: patient Onset/Context/Timing Onset: Weeks (1) Context: Gradual Onset Timing: Continuous Quality of Pain: Sharp Location: Left foot Worsened by: Walking, standing Relieved by: Nothing Associated Symptoms Associated Symptoms: Negative for Parasthesia or Weakness [facility] <Dr. Howard Astorga DO - Last Filed: 03/06/25 09:29> [facility] Medical History Left hip pain Cataract fragments in eye following surgery Hypothyroidism History of GI bleed Recent URI Rib pain on left side Lumbar radiculopathy, acute Hip pain Uses wheelchair Walker as ambulation aid Ambulates with cane CKD (chronic kidney disease), stage III Restless legs History of edema History of irregular heartbeat Chest pain Acute blood loss anemia Cancer Post-menopausal Anxiety History of steroid therapy Thyroid disease Diabetes Low iron History of renal disease Injury of head and neck Dietary restriction Gastric reflux Former smoker Shortness of breath on exertion Leg cramps History of echocardiogram Hypertension History of heart attack Cardiology follow-up encounter Neuropathy Migraines Carpal tunnel syndrome Anemia Seasonal allergies Foot fracture, right Foot fracture, left Gastroenteritis Infectious mononucleosis Erythromelalgia Hepatitis Small fiber neuropathy Acid reflux Fibromyalgia Osteopenia Rheumatoid arthritis History of diabetes mellitus History of chronic kidney disease History of COVID-19 Home Medications ?Medication ?Instructions ?Recorded ?Last Taken ?Type biotin 5,000 mcg disintegrating 15,000 mcg PO DAILY SUPPLEMENT 08/26/22 12/30/23 History tablet vitamin B complex (B 1 tab PO DAILY SUPPLEMENT 08/26/22 12/30/23 History Complex-Vitamin B12 tablet) sennosides 8.6 mg-docusate sodium 2 tab PO BID PRN PRN Constipation 11/27/22 11/26/23 Rx 50 mg tablet (Stool #0 tabs Softener-Stimulant Laxative) fluticasone propionate 50 1 spray intranasal BID PRN Sinus 12/05/22 12/04/22 History mcg/actuation nasal Symptoms spray,suspension hydroxychloroquine 200 mg tablet 200 mg PO BID RA #60 tabs 05/27/23 12/30/23 Rx rosuvastatin 10 mg tablet (Crestor) 20 mg PO QHS CHOLESTEROL 06/11/23 12/30/23 History amlodipine 10 mg tablet 10 mg PO BID BP #90 tabs 10/01/23 12/14/24 Rx aspirin 81 mg capsule 81 mg PO DAILY 11/14/23 12/13/24 History zinc gluconate 50 mg tablet 50 mg PO DAILY 01/28/24 Unknown History ascorbic acid (vitamin C) 500 mg 500 mg PO QDAY 02/14/24 Unknown History capsule carvedilol 3.125 mg tablet 3.125 mg PO BID BP/HEART 02/14/24 12/14/24 History levothyroxine 88 mcg tablet 88 mcg PO DAILY THYROID #90 tabs 09/01/24 12/14/24 Rx (Euthyrox) cholecalciferol (vitamin D3) 25 25 mcg PO QDAY 10/28/24 Unknown History mcg (1,000 unit) capsule oxycodone-acetaminophen 5 mg-325 1 tab PO Q6H PRN pain 10/28/24 Unknown History mg tablet venlafaxine 150 mg 150 mg PO DAILY #90 caps 11/17/24 Unknown Rx capsule,extended release 24 hr (Effexor XR) venlafaxine 75 mg tablet 75 mg PO DAILY #90 tabs 11/17/24 Unknown Rx famotidine 40 mg tablet 40 mg PO QHS #90 tabs 11/25/24 Unknown Rx Lactobacillus acidophilus and 4 cap PO DAILY 12/09/24 Unknown History rhamnosus 15 billion cell capsule (Probiotic) lisinopril 5 mg tablet 10 mg PO QHS BP 12/09/24 Unknown History glipizide 10 mg tablet, extended 10 mg PO BID DIABETIC #180 tabs 12/14/24 Unknown Rx release 24 hr clopidogrel 75 mg tablet 75 mg PO DAILY BLOOD THINNER #90 12/21/24 Unknown Rx tabs ipratropium bromide 21 mcg (0.03 1 spray intranasal BID PRN allergy 01/26/25 Unknown Rx %) nasal spray symptoms #30 mL metformin 500 mg tablet 500 mg PO QDAY PRN 01/26/25 Unknown History nystatin 100,000 unit/gram topical 1 applic topical TID PRN Skin 01/26/25 Unknown Rx powder (Nystop) Cleansing #30 grams ondansetron HCl 8 mg tablet 8 mg PO Q6H PRN nausea and 01/26/25 Unknown Rx vomiting #20 tabs cephalexin 500 mg capsule 500 mg PO Q6 #40 CAPSULES 03/05/25 Unknown Rx Allergy/AdvReac Type Severity Reaction Status Date / Time iron Allergy Severe Other Verified 03/05/25 13:43 Iodinated Contrast Media Allergy Intermediate Hives Verified 03/05/25 13:43 (IVP dye) Seasonal Allergies: Uncoded Allergy Mild Hives Verified 03/05/25 13:43 levofloxacin (From Levaquin) Allergy PT UNSURE Verified 03/05/25 13:43 OF REACTION liraglutide (From Victoza) Allergy dehydration Verified 03/05/25 13:43 - ended up in hospital methylprednisolone (From AdvReac Intermediate HALLUCINATI Verified 03/05/25 13:43 Solu-Medrol) ONS adhesive AdvReac Rash Verified 03/05/25 13:43 adhesive tape AdvReac Rash Verified 03/05/25 13:43 hydrochlorothiazide AdvReac pt can tke Verified 03/05/25 13:43 tablet, but not capsule hydrocodone AdvReac Itching Verified 03/05/25 13:43 oxycodone (From Percocet) AdvReac Itching Verified 03/05/25 13:43 Family History Grandfather Cancer Heart disease Father Cancer Heart disease Diabetes Uncle Cancer Aunt Cancer Brother Heart disease Surgical History H/O radiofrequency ablation (RFA) of nerve of lumbar spine History of esophagogastroduodenoscopy (EGD) History of cardiac catheterization History of colectomy Hx of colonoscopy Hx of release of tendon History of lumbar laminectomy Hx of fusion of cervical spine Hx of cholecystectomy Hx of appendectomy Hx of tonsillectomy H/O heart artery stent Social History household members: family housing: house number of children: 0 current occupational status: disabled Smoking Status: Former smoker alcohol intake: never substance use type: does not use caffeine: Yes Type: carbonated beverages and tea what type of physical activity do you participate in: none seatbelt use: always do you feel safe at home: Yes additional social history: ROS <Dr. Howard Astorga, - Last Filed: 03/06/25 09:29> ROS ED Constitutional Constitutional ED: Reports fever(s) and subjective; Denies chills Eyes Eyes: Denies blurry vision or change in vision ENT ENT ED: Reports sore throat; Denies rhinorrhea Cardiovascular Cardiovascular: Denies chest pain or palpitations Respiratory/Chest Respiratory/Chest: Denies cough or dyspnea Gastrointestinal Gastrointestinal: Denies nausea or vomiting Genitourinary Genitourinary ED: Denies dysuria or hematuria Musculoskeletal Musculoskeletal: Reports back pain; Denies neck pain Integumentary Denies abscess or rash Neurologic Neurologic: Denies headache(s) or weakness Allergic/Immunologic Allergic/Immunologic ED: Denies mouth swelling or urticaria EXAM <Dr. Howard Astorga, DO - Last Filed: 03/06/25 09:29> Physical Exam Const Vital Signs: 03/05/25 13:41 03/05/25 15:40 03/05/25 16:18 Temperature 98.4 F Temperature Source Temporal Pulse Rate 56 L 49 L Respiratory Rate 16 14 Blood Pressure 170/59 H 132/54 H 142/50 H Blood Pressure Mean 96 80 80 Pulse Ox 99 99 92 Oxygen Delivery Method Room Air Room Air 03/05/25 17:35 Temperature 97 F L Temperature Source Pulse Rate 48 L Respiratory Rate 14 Blood Pressure 127/53 H Blood Pressure Mean 77 Pulse Ox 96 Oxygen Delivery Method Positive well nourished and well developed General Appearance ED: well developed and NAD HEENT Reports moist mucous membranes Neck full ROM and supple Resp normal respiratory effort and clear to auscultation bilaterally Cardio regular rate and regular rhythm Extremity Extremity Narrative: There is tenderness over the dorsal aspect of the left foot. There is some mild erythema. There is mild warmth. There is no evidence of any abscess. There is no fluctuance. There is no induration. There is no calf tenderness or edema. Neuro oriented x3, CN's II-XII intact bilaterally, moves all extremities and no sensory deficits noted Sensorium / Orientation: alert Motor Exam: strength 5/5 throughout Psych mental status grossly normal Skin no wounds <Dr. Tatianna Durbin, DO - Last Filed: 03/05/25 17:37> Physical Exam Const Vital Signs: 03/05/25 13:41 03/05/25 15:40 03/05/25 16:18 Temperature 98.4 F Temperature Source Temporal Pulse Rate 56 L 49 L Respiratory Rate 16 14 Blood Pressure 170/59 H 132/54 H 142/50 H Blood Pressure Mean 96 80 80 Pulse Ox 99 99 92 Oxygen Delivery Method Room Air Room Air 03/05/25 17:35 Temperature 97 F L Temperature Source Pulse Rate 48 L Respiratory Rate 14 Blood Pressure 127/53 H Blood Pressure Mean 77 Pulse Ox 96 Oxygen Delivery Method MDM <Dr. Howard Astorga, DO - Last Filed: 03/06/25 09:29> MDM MDM Narrative Medical decision making narrative: Differential diagnose includes cellulitis, osteomyelitis, coagulopathy, and sepsis. CBC will be obtained to assess for leukocytosis and anemia. Basic metabolic profile will be obtained to assess for electrolyte abnormality and renal function. PT with INR and PTT will be obtained to assess for coagulopathy. Blood cultures will be obtained to assess for sepsis. X-rays of the left foot will be obtained to assess for osteomyelitis and fracture. Lab Data Attestation: I reviewed the patient's lab results. Lab results narrative: CBC was reviewed and showed a mild anemia with a hemoglobin of 10.9 and hematocrit of 33.8. PT with INR and PTT were reviewed and were within normal limits. Basic metabolic profile was reviewed. BUN was slightly elevated at 21 and creatinine was 1.49. These are consistent with previous results. Glucose was 225. This was slightly elevated from previous results. Labs: Laboratory Results - last 24 hr 03/05/25 14:45 WBC 10.8 RBC 3.87 L Hgb 10.9 L Hct 33.8 L MCV 87.3 MCH 28.2 MCHC 32.2 RDW Std Deviation 43.7 RDW Coeff of Emilio 13.7 Plt Count 210 MPV 10.5 Immature Gran % (Auto) 0.600 Neut % (Auto) 68.3 Lymph % (Auto) 18.2 L [place] % (Auto) 9.3 Eos % (Auto) 2.8 Baso % (Auto) 0.8 Absolute Neuts (auto) 7.4 Absolute Lymphs (auto) 1.97 Nucleated RBC % 0 PT 13.3 INR 1.0 APTT 31.8 Sodium 140 Potassium 4.2 Chloride 102 Carbon Dioxide 26.0 Anion Gap 12 BUN 21 H Creatinine 1.49 H Est GFR (MDRD) Non-Af 39 L BUN/Creatinine Ratio 14.3 Glucose 225 H Calcium 9.7 Radiography Diagnostic Testing: Clinical Impression(s) from Imaging Studies Foot X-Ray 03/05/25 16:35 IMPRESSION: NO ACUTE FRACTURE OR DISLOCATION. Reading Location: [facility] Treatment and Re-Evaluation Narrative: Patient was given morphine and Zofran. Patient was given a dose of Unasyn. Patient was advised of her findings. Care of the patient was turned over to the oncoming physician pending x-ray report. <Dr. Tatianna Durbin, DO - Last Filed: 03/05/25 17:37> [facility] Lab Data Labs: Laboratory Results - last 24 hr 03/05/25 14:45 WBC 10.8 RBC 3.87 L Hgb 10.9 L Hct 33.8 L MCV 87.3 MCH 28.2 MCHC 32.2 RDW Std Deviation 43.7 RDW Coeff of Emilio 13.7 Plt Count 210 MPV 10.5 Immature Gran % (Auto) 0.600 Neut % (Auto) 68.3 Lymph % (Auto) 18.2 L Monroe % (Auto) 9.3 Eos % (Auto) 2.8 Baso % (Auto) 0.8 Absolute Neuts (auto) 7.4 Absolute Lymphs (auto) 1.97 Nucleated RBC % 0 PT 13.3 INR 1.0 APTT 31.8 Sodium 140 Potassium 4.2 Chloride 102 Carbon Dioxide 26.0 Anion Gap 12 BUN 21 H Creatinine 1.49 H Est GFR (MDRD) Non-Af 39 L BUN/Creatinine Ratio 14.3 Glucose 225 H Calcium 9.7 Radiography Diagnostic Testing: Clinical Impression(s) from Imaging Studies Foot X-Ray 03/05/25 16:35 IMPRESSION: NO ACUTE FRACTURE OR DISLOCATION. Reading Location: [facility] Treatment and Re-Evaluation Narrative: Patient was given morphine and Zofran. Patient was given a dose of Unasyn. Patient was advised of her findings. Care of the patient was turned over to the oncoming physician pending x-ray report. Patient signed out to me pending x-ray report. X-ray does not show any acute fracture or other acute soft tissue abnormality. I went spoke with the patient. Does have a localized area of erythema to the mid dorsum of the left foot that seems mildly petechial in nature. Is blanching. There is no associated lymphangitic streaking. Is quite tender to palpation. She has some mild tenderness along the lateral aspect of the left foot as well. She states is feeling better currently but is concerned about what will happen if she goes home and she cannot sleep. She is in pain management with Dr. Carmona. I did try to contact him but as it is the weekend I was unable to get hold of him per the office policy. Counseled to continue taking oxycodone as needed for pain at home as prescribed. She will call the office on Friday (it is a holiday weekend). Will be started on antibiotics?was given first dose of Unasyn in the ER. Is prescribed Keflex. Patient feels comfortable going home and states he has a wheelchair to use. Counseled to return if her pain becomes too severe she does not feel safe at home or if she has a progression of her wound/redness. Discharged home in stable condition. Discharge Plan Triage Chief Complaint: Lower Extremity Injury ED Provider: Howard Astorga Dx/Rx/DC Orders Clinical Impression: Cellulitis of left foot Instructions: ED Cellulitis Prescriptions: New cephalexin 500 mg capsule 500 mg PO Q6 Qty: 40 0RF No Action biotin 5,000 mcg tablet,disintegrating 15,000 mcg PO DAILY vitamin B complex [B Complex-Vitamin B12] Tablet 1 tab PO DAILY zinc gluconate 50 mg tablet 50 mg PO DAILY ascorbic acid (vitamin C) 500 mg capsule 500 mg PO QDAY cholecalciferol (vitamin D3) 25 mcg (1,000 unit) capsule 25 mcg PO QDAY oxycodone-acetaminophen 5-325 mg tablet 1 tab PO Q6H PRN (Reason: pain) metformin 500 mg tablet 500 mg PO QDAY PRN Patient Comments: After steroid injections by pain management ipratropium bromide 21 mcg (0.03 %) spray,non-aerosol 1 spray intranasal BID PRN (Reason: allergy symptoms) Qty: 30 1RF Rx Instructions: administer into each nostril ondansetron HCl 8 mg tablet 8 mg PO Q6H PRN (Reason: nausea and vomiting) Qty: 20 1RF nystatin [Nystop] 100,000 unit/gram powder 1 applic topical TID PRN (Reason: Skin Cleansing) Qty: 30 1RF rosuvastatin [Crestor] 10 mg tablet 20 mg PO QHS carvedilol 3.125 mg tablet 3.125 mg PO BID sennosides-docusate sodium [Stool Softener-Stimulant Laxat] 8.6-50 mg Tablet 2 tab PO BID PRN PRN (Reason: Constipation) Qty: 0 0RF fluticasone propionate 50 mcg/actuation [place],Suspension 1 spray INTRANASAL BID PRN (Reason: Sinus Symptoms) Rx Instructions: administer into each nostril aspirin 81 mg capsule 81 mg PO DAILY Probiotic 15 billion cell capsule 4 cap PO DAILY lisinopril 5 mg tablet 10 mg PO QHS hydroxychloroquine 200 mg tablet 200 mg PO BID Qty: 60 1RF amlodipine 10 mg tablet 10 mg PO BID Qty: 90 3RF levothyroxine [Euthyrox] 88 mcg tablet 88 mcg PO DAILY Qty: 90 3RF venlafaxine 75 mg tablet 75 mg PO DAILY Qty: 90 1RF venlafaxine [Effexor XR] 150 mg capsule,extended release 24hr 150 mg PO DAILY Qty: 90 1RF famotidine 40 mg tablet 40 mg PO QHS Qty: 90 1RF glipizide 10 mg tablet extended release 24hr 10 mg PO BID Qty: 180 3RF clopidogrel 75 mg tablet 75 mg PO DAILY Qty: 90 3RF Primary Care Provider: Kimi López Referrals: Kimi López MD [Primary Care Provider] - Activity Restrictions/Additional Instructions: We will treat you for possible cellulitis of the foot. If it progresses or changes please return to the emergency room. Take your pain medication as prescribed from Dr. Gallardo. Please follow-up with pain management as well as your primary care doctor. Print Language: Sudanese Disposition Disposition: Home, Self Care Discharge Date/Time: 03/05/25 17:42
[2025-03-05] MEDS: Ondansetron 4 MG/2 ML Vial IV (14:42)
[2025-03-05] MEDS: Morphine 4 MG/ML Syringe IV (14:43)
[2025-03-05 14:53] LABS: Absolute Lymphocyte Count 1.97 X10^3/uL (0.83-4.51); Absolute Neutrophil Count 7.4 X10^3/uL (2.0-7.7); Basophil# 0.09 X10^3/uL; Basophil% 0.8 % (0-1); Eosinophils% 2.8 % (0-5); Hematocrit 33.8 % (37-47); Hemoglobin 10.9 g/dL (12.0-15.0); Lymphocyte # 1.97 X10^3/ul (0.83-4.51); Lymphocyte % 18.2 % (19-41); Mean Corp Hgb Conc 32.2 g/dL (32-36); Mean Corpuscular Hgb 28.2 pg (27.0-32.0); Mean Corpuscular Volume 87.3 fL (81-99); Mean Platelet Vol. 10.5 fl (6.2-12.0); Monocyte# 1.01 X10^3/uL; Monocyte% 9.3 % (0-10); NRBC Flagged by Analyzer 0 % (0-5); Neutrophil # 7.39 X10^3/uL (2.7-7.7); Neutrophil % 68.3 % (47-70); Platelet Count 210 K/mm3 (150-450); RBC Distribution Width CV 13.7 % (11.6-14.6); RBC Distribution Width SD 43.7 fl (35.1-43.9); Red Blood Count 3.87 M/mm3 (4.2-5.4); White Blood Count 10.8 K/mm3 (4.4-11.0)
[2025-03-05 15:04] LABS: Partial Thromboplast Time 31.8 Seconds (24.1-36.2); Prothrombin Time (Protime)PT. 13.3 SECONDS (11.7-14.9)
[2025-03-05 15:09] LABS: Anion Gap 12 (5-15); BUN 21 mg/dL (4-19); BUN/Creat Ratio 14.3 RATIO (10-20); Calcium,Total 9.7 mg/dL (7.6-11.0); Chloride 102 mmol/L (98-108); Creatinine, Serum 1.49 mg/dL (0.70-1.20); EST Glomerular Filtration Rate 39 (>60); Glucose 225 mg/dL (70-99); Potassium 4.2 mmol/L (3.3-5.1); Sodium Level 140 mmol/L (133-145)
[2025-03-05 15:40] VITALS: BP 132/54; O2SAT 99
[2025-03-05 16:18] VITALS: BP 142/50; PULSE 49; RESP 14; O2SAT 92
[2025-03-05] MEDS: Acetaminophen 500 MG Tablet 1000 MG PO (16:25)
--- NOTE | 2025-03-05 16:35 | RAD_ITS ---
PROCEDURE: FOOT MIN 3 VIEWS 03/05/2025 REASON FOR EXAM: INJURY/PAIN TECHNIQUE: 3 views of the left foot. COMPARISON: None. FINDINGS: Bones: No visible fracture. No suspicious bone lesion. Joints: Normal alignment. Mild degenerative changes. Soft tissues: No radiopaque foreign body or soft tissue swelling. RAD/Foot min 3 Views IMPRESSION: NO ACUTE FRACTURE OR DISLOCATION. Reading Location: [id number]
[2025-03-05] MEDS: Ampicillin/Sulbactam 3 GM in 0.9% Normal Saline (100mL MB+) 100 ML IV (16:43)
[2025-03-05 17:35] VITALS: BP 127/53; PULSE 48; RESP 14; TEMP 36.1; O2SAT 96
== END 2025-03-05 17:42 | disposition home or self-care (01) ==
PROVIDERS: Emergency Provider Emergency Medicine; PCP Internal Medicine; Visit Provider Emergency Medicine
DX: L03.116 Cellulitis of left lower limb (principal); E11.40 Type 2 diabetes mellitus with diabetic neuropathy, unspecified; E11.22 Type 2 diabetes mellitus with diabetic chronic kidney disease; N18.30 Chronic kidney disease, stage 3 unspecified; I12.9 Hypertensive chronic kidney disease with stage 1 through stage 4 chronic kidney disease, or unspecified chronic kidney disease; Z87.891 Personal history of nicotine dependence; J02.9 Acute pharyngitis, unspecified; M54.9 Dorsalgia, unspecified; R50.9 Fever, unspecified; Z95.5 Presence of coronary angioplasty implant and graft; Z98.1 Arthrodesis status; Z86.16 Personal history of COVID-19; I25.2 Old myocardial infarction; E03.9 Hypothyroidism, unspecified
CPT/HCPCS: 73630; 80048; 85025; 85610; 85730; 87040; 96361; 96374; 96375; 99283; A4216; J0295; J2405

== ENCOUNTER 2025-03-10 16:04 | Emergency (ER) | payer MEDICAID, SELFPAY ==
[2023-11-24 08:48] VITALS: BMI 28.5
[2025-03-10] VITALS (18 sets, daily range): BP systolic 101–135; BP diastolic 43–70; PULSE 51–66; RESP 14–25; TEMP 36.9–37.3; O2SAT 87–98; BMI 31.3
--- NOTE | 2025-03-10 16:24 | EKG12_ITS ---
Test Reason : Blood Pressure : */* mmHG Vent. 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
--- NOTE | 2025-03-10 16:34 | CT_ITS ---
PROCEDURE: ABDOMEN/PELVIS W IV CONT ONLY 03/10/2025 REASON FOR EXAM: LLQ ABD PAIN TECHNIQUE: Abdomen and pelvis CT with intravenous contrast. Coronal and Sagittal reconstruction series were provided. PATIENT PREPARATION: Per protocol ORAL CONTRAST TYPE: None. CONTRAST: Isovue 370 VOLUME: 100 mL One or more dose reduction techniques were used (e.g., Automated exposure control, adjustment of the mA and/or kV according to patient size, use of iterative reconstruction technique. RADIATION DOSE SUMMARY: See same day CTA chest for discussion of radiation dosage. COMPARISON: CTA abdomen pelvis 12/05/2022. FINDINGS: Liver: The liver is normal in size with scattered hypodensities, likely cysts. The major portal veins are patent. No biliary ductal dilation. Gallbladder: Prior cholecystectomy. Spleen: Normal in size. Pancreas: Unremarkable. Adrenals: No adrenal mass. Kidneys: Bilateral renal cysts and additional hypodensities. No hydronephrosis or nephrolithiasis. Mild bilateral renal cortical scarring. Bladder: Mildly distended and unremarkable. Reproductive Organs: Normal uterine size and contour. Ovaries are unremarkable. Bowel: Prior right hemicolectomy. The bowel loops are normal in caliber. No ascites or pneumoperitoneum. Lymph nodes: Stable prominent retroperitoneal nodes, unchanged since 2022. No lymphadenopathy. Vasculature: Moderate mixed atherosclerotic plaque throughout the aortoiliac vessels. Bones: Thoracolumbar spondylosis. CT/Abdomen/Pelvis W IV Cont ONLY IMPRESSION: No acute abdominopelvic finding. Reading Location: [id number]
--- NOTE | 2025-03-10 16:34 | CT_ITS ---
PROCEDURE: CTA CHEST W/WO CONTRAST 03/10/2025 REASON FOR EXAM: HYPOXIA, FEVER TECHNIQUE: CTA axial imaging of the chest with intravenous contrast. Coronal and Sagittal reconstruction series were provided. 3D, 3D post processing, 3D reconstructions, Maximum intensity projection (MIPs) Volume rendering and Shaded surface rendering was provided. PATIENT PREPARATION: Per protocol CONTRAST: Isovue 370 VOLUME: 100mL One or more dose reduction techniques were used (e.g., Automated exposure control, adjustment of the mA and/or kV according to patient size, use of iterative reconstruction technique). RADIATION DOSE SUMMARY: CTDlvol: 30 mGy DLP: 800 mGycm COMPARISON: CT chest 10/19/2024. FINDINGS: Hardware: None. Lymph nodes: Mediastinal granulomas. No axillary, mediastinal or hilar lymphadenopathy. Heart: Normal in size without pericardial effusion. The great vessels are normal in caliber. Severe coronary artery calcifications. Mild calcific plaque of the thoracic aorta. Pulmonary Vessels: No central filling defect within the segmental or subsegmental pulmonary arteries. Lungs and Airways: The central airways are patent. Ground-glass opacities and small consolidations throughout the bilateral lungs, greatest in the right upper lobe. Small right and trace left pleural effusions with adjacent atelectasis. No pneumothorax. Bones: Partially visualized ACDF hardware. Cervical and thoracic spondylosis. CT/CTA Chest W/WO Contrast IMPRESSION: 1. No acute pulmonary embolism. 2. Ground-glass opacities and small consolidations throughout the bilateral maura gs, greatest within the right upper lobe, most compatible with pneumonitis/pneumonia. 3. Small right and trace left pleural effusions. 4. Severe coronary artery calcifications. Reading Location: [id number]
[2025-03-10 16:41] LABS: Absolute Lymphocyte Count 1.47 X10^3/uL (0.83-4.51); Absolute Neutrophil Count 8.6 X10^3/uL (2.0-7.7); Basophil# 0.08 X10^3/uL; Basophil% 0.7 % (0-1); Eosinophil# 0.31 X10^3/uL; Eosinophils% 2.6 % (0-5); Hemoglobin 10.4 g/dL (12.0-15.0); Lymphocyte # 1.47 X10^3/ul (0.83-4.51); Lymphocyte % 12.5 % (19-41); Mean Corp Hgb Conc 32.5 g/dL (32-36); Mean Corpuscular Hgb 28.5 pg (27.0-32.0); Mean Corpuscular Volume 87.7 fL (81-99); Mean Platelet Vol. 10.8 fl (6.2-12.0); Monocyte# 1.21 X10^3/uL; Monocyte% 10.3 % (0-10); NRBC Flagged by Analyzer 0 % (0-5); Neutrophil # 8.62 X10^3/uL (2.7-7.7); Neutrophil % 73.3 % (47-70); Platelet Count 233 K/mm3 (150-450); RBC Distribution Width CV 13.5 % (11.6-14.6); Red Blood Count 3.65 M/mm3 (4.2-5.4); White Blood Count 11.8 K/mm3 (4.4-11.0)
[2025-03-10] MEDS: 0.9% Normal Saline (1000mL) 1,000 ML 999 ML IV ×2 (16:51→17:45)
[2025-03-10] MEDS: MethylPREDNISolone 125 MG/2 ML Vial IV (16:54)
[2025-03-10] MEDS: DiphenhydrAMINE 50 MG/ML Syringe 25 MG IV (16:54)
[2025-03-10 16:55] LABS: International Normalized Ratio 1.1; Prothrombin Time (Protime)PT. 14.3 SECONDS (11.7-14.9)
[2025-03-10 16:56] LABS: Partial Thromboplast Time 33.7 Seconds (24.1-36.2)
[2025-03-10 17:37] LABS: AST(SGOT) 14 U/L (<=31); Alanine Aminotransfer ALT/SGPT 12 U/L (<=34); Albumin, Serum 3.7 g/dL (3.4-4.8); Alkaline Phosphatase 75 U/L (35-104); Anion Gap 12 (5-15); BUN 23 mg/dL (4-19); BUN/Creat Ratio 13.6 RATIO (10-20); Calcium,Total 9.5 mg/dL (7.6-11.0); Carbon Dioxide 24.3 mmol/L (21.0-32.0); Chloride 101 mmol/L (98-108); Creatinine, Serum 1.71 mg/dL (0.70-1.20); EST Glomerular Filtration Rate 33 (>60); Estimated Creatinine Clearance 39.72 ml/min (50-250); Globulin 3.6 g/dL (2.2-4.2); Glucose 252 mg/dL (70-99); Potassium 4.5 mmol/L (3.3-5.1); Protein, Total 7.2 g/dL (5.9-8.4); Sodium Level 138 mmol/L (133-145); Total Bilirubin 0.31 mg/dL (0.00-1.30)
[2025-03-10 17:41] LABS: Pro- Brain NATRIURETIC PEPTIDE 2246 pg/mL (<=900)
[2025-03-10 17:53] LABS: Lactic Acid < 1.0 mmol/L (0.0-2.0)
--- NOTE | 2025-03-10 18:07 | EX.ED.DYSGE1 ---
HPI History of Present Illness Chief Complaint: Fever Narrative Narrative: Patient is a 64-year-old female with past medical history of chronic kidney disease stage III, CAD status CABG, diabetes, rheumatoid arthritis, fibromyalgia, hepatitis, migraines, hypothyroidism, recent cellulitis who presents to the emergency department with a chief complaint of fever and not feeling well. Patient states that she was recently diagnosed with a foot cellulitis was placed on antibiotics. States that for the last several days she has had high fevers at home of 101-103. States that she is taking her temperature with a thermometer orally. States that she has not missed any doses of her antibiotics. Patient denies any sick contacts. She also states that she feels overall weak and unwell. [facility] Medical History Left hip pain Cataract fragments in eye following surgery Hypothyroidism History of GI bleed Recent URI Rib pain on left side Lumbar radiculopathy, acute Hip pain Uses wheelchair Walker as ambulation aid Ambulates with cane CKD (chronic kidney disease), stage III Restless legs History of edema History of irregular heartbeat Chest pain Acute blood loss anemia Cancer Post-menopausal Anxiety History of steroid therapy Thyroid disease Diabetes Low iron History of renal disease Injury of head and neck Dietary restriction Gastric reflux Former smoker Shortness of breath on exertion Leg cramps History of echocardiogram Hypertension History of heart attack Cardiology follow-up encounter Neuropathy Migraines Carpal tunnel syndrome Anemia Seasonal allergies Foot fracture, right Foot fracture, left Gastroenteritis Infectious mononucleosis Erythromelalgia Hepatitis Small fiber neuropathy Acid reflux Fibromyalgia Osteopenia Rheumatoid arthritis History of diabetes mellitus History of chronic kidney disease History of COVID-19 Home Medications ?Medication ?Instructions ?Recorded ?Last Taken ?Type biotin 5,000 mcg disintegrating 15,000 mcg PO DAILY SUPPLEMENT 08/26/22 12/30/23 History tablet vitamin B complex (B 1 tab PO DAILY SUPPLEMENT 08/26/22 12/30/23 History Complex-Vitamin B12 tablet) sennosides 8.6 mg-docusate sodium 2 tab PO BID PRN PRN Constipation 11/27/22 11/26/23 Rx 50 mg tablet (Stool #0 tabs Softener-Stimulant Laxative) fluticasone propionate 50 1 spray intranasal BID PRN Sinus 12/05/22 12/04/22 History mcg/actuation nasal Symptoms spray,suspension hydroxychloroquine 200 mg tablet 200 mg PO BID RA #60 tabs 05/27/23 12/30/23 Rx amlodipine 10 mg tablet 10 mg PO BID BP #90 tabs 10/01/23 12/14/24 Rx aspirin 81 mg capsule 81 mg PO DAILY 11/14/23 12/13/24 History zinc gluconate 50 mg tablet 50 mg PO DAILY 01/28/24 Unknown History ascorbic acid (vitamin C) 500 mg 500 mg PO QDAY 02/14/24 Unknown History capsule carvedilol 3.125 mg tablet 3.125 mg PO BID BP/HEART 02/14/24 12/14/24 History levothyroxine 88 mcg tablet 88 mcg PO DAILY THYROID #90 tabs 09/01/24 12/14/24 Rx (Euthyrox) cholecalciferol (vitamin D3) 25 25 mcg PO QDAY 10/28/24 Unknown History mcg (1,000 unit) capsule oxycodone-acetaminophen 5 mg-325 1 tab PO Q6H PRN pain 10/28/24 Unknown History mg tablet venlafaxine 150 mg 150 mg PO DAILY #90 caps 11/17/24 Unknown Rx capsule,extended release 24 hr (Effexor XR) venlafaxine 75 mg tablet 75 mg PO DAILY #90 tabs 11/17/24 Unknown Rx famotidine 40 mg tablet 40 mg PO QHS #90 tabs 11/25/24 Unknown Rx Lactobacillus acidophilus and 4 cap PO DAILY 12/09/24 Unknown History rhamnosus 15 billion cell capsule (Probiotic) glipizide 10 mg tablet, extended 10 mg PO BID DIABETIC #180 tabs 12/14/24 Unknown Rx release 24 hr clopidogrel 75 mg tablet 75 mg PO DAILY BLOOD THINNER #90 12/21/24 Unknown Rx tabs metformin 500 mg tablet 500 mg PO QDAY PRN pain 01/26/25 Unknown History nystatin 100,000 unit/gram topical 1 applic topical TID PRN Skin 01/26/25 Unknown Rx powder (Nystop) Cleansing #30 grams ondansetron HCl 8 mg tablet 8 mg PO Q6H PRN nausea and 01/26/25 Unknown Rx vomiting #20 tabs cephalexin 500 mg capsule 500 mg PO Q6 #40 CAPSULES 03/05/25 Unknown Rx doxycycline hyclate 100 mg tablet 100 mg PO BID #14 tabs 03/08/25 Unknown Rx calcium carbonate 600 mg PO BID 03/10/25 Unknown History lisinopril 10 mg tablet 10 mg PO DAILY 03/10/25 Unknown History rosuvastatin 20 mg tablet 20 mg PO DAILY 03/10/25 Unknown History Allergy/AdvReac Type Severity Reaction Status Date / Time iron Allergy Severe Other Verified 03/10/25 16:14 Iodinated Contrast Media Allergy Intermediate Hives Verified 03/10/25 16:14 (IVP dye) Seasonal Allergies: Uncoded Allergy Mild Hives Verified 03/10/25 16:14 levofloxacin (From Levaquin) Allergy PT UNSURE Verified 03/10/25 16:14 OF REACTION liraglutide (From Victoza) Allergy dehydration Verified 03/10/25 16:14 - ended up in hospital methylprednisolone (From AdvReac Intermediate HALLUCINATI Verified 03/10/25 16:14 Solu-Medrol) ONS adhesive AdvReac Rash Verified 03/10/25 16:14 adhesive tape AdvReac Rash Verified 03/10/25 16:14 hydrochlorothiazide AdvReac pt can tke Verified 03/10/25 16:14 tablet, but not capsule hydrocodone AdvReac Itching Verified 03/10/25 16:14 oxycodone (From Percocet) AdvReac Itching Verified 03/10/25 16:14 Family History Grandfather Cancer Heart disease Father Cancer Heart disease Diabetes Uncle Cancer Aunt Cancer Brother Heart disease Surgical History H/O radiofrequency ablation (RFA) of nerve of lumbar spine History of esophagogastroduodenoscopy (EGD) History of cardiac catheterization History of colectomy Hx of colonoscopy Hx of release of tendon History of lumbar laminectomy Hx of fusion of cervical spine Hx of cholecystectomy Hx of appendectomy Hx of tonsillectomy H/O heart artery stent Social History household members: family housing: house number of children: 0 current occupational status: disabled Smoking Status: Former smoker alcohol intake: never substance use type: does not use caffeine: Yes Type: carbonated beverages and tea what type of physical activity do you participate in: none seatbelt use: always do you feel safe at home: Yes additional social history: ROS ROS ED ROS Narrative Constitutional: Complains of fever as noted above and generalized weakness denies dizziness Eyes: Denies change in vision double vision blurry vision Cardiovascular: Denies chest pain or palpitations Respiratory: Denies coughing wheezing shortness of breath Abdomen: Denies abdominal pain nausea vomit diarrhea : Denies urinary symptoms Neurological: Denies numbness, wheeze, tingling Musculoskeletal: Denies back pain Skin: Complains of left foot cellulitis but is improving EXAM Physical Exam Narrative Exam Narrative: General: Patient lying in bed resting comfortably did not appear to be in acute distress Head: Atraumatic, normocephalic Eyes: PERRL bilaterally, EOMI bilaterally, no conjunctival injection noted Neck: Soft, supple, trachea midline Cardiovascular: Patient is bradycardic no murmurs gallops rubs noted Respiratory: Clear to auscultation bilaterally Abdomen: Soft, nondistended, nontender to palpation Extremities: +5/5 strength noted in the bilateral upper and lower extremity, radial pulses +2/4 in the bilateral extremities, no pedal edema on exam, DP pulses +2/4 in the bilateral lower extremities Neurological: Patient following commands knew that she was at [facility] year is 2024 Skin: Warm, dry, tact no rashes or lesions noted, patient's left foot cellulitis has significantly improved is not evident clinically Const Vital Signs: 03/10/25 16:05 03/10/25 16:05 03/10/25 16:36 Temperature 98.5 F 98.5 F Temperature Source Oral Oral Pulse Rate 55 L 55 L Respiratory Rate 18 18 Respiratory Effort Respiratory Pattern Blood Pressure 113/47 L 113/47 L Blood Pressure Mean 69 69 Pulse Ox 87 87 Oxygen Delivery Method Room Air Room Air Nasal Cannula Oxygen Flow Rate (L/min) 4 03/10/25 16:40 03/10/25 16:56 03/10/25 16:57 Temperature Temperature Source Pulse Rate Respiratory Rate Respiratory Effort Normal Non-Labored Respiratory Pattern Normal Blood Pressure Blood Pressure Mean Pulse Ox 98 96 Oxygen Delivery Method Nasal Cannula Nasal Cannula Oxygen Flow Rate (L/min) 4 3 03/10/25 17:00 03/10/25 17:15 03/10/25 18:00 Temperature 98.9 F 99.1 F 99.1 F Temperature Source Oral Oral Oral Pulse Rate 55 L 56 L 56 L Respiratory Rate 22 H 20 H 20 H Respiratory Effort Respiratory Pattern Blood Pressure 122/52 H 122/52 H 135/64 H Blood Pressure Mean 75 75 83 Pulse Ox 88 96 98 Oxygen Delivery Method Nasal Cannula Nasal Cannula Nasal Cannula Oxygen Flow Rate (L/min) 4 4 4 03/10/25 18:30 03/10/25 19:00 03/10/25 19:02 Temperature 98.9 F Temperature Source Oral Pulse Rate 57 L 53 L 52 L Respiratory Rate 20 H 15 15 Respiratory Effort Respiratory Pattern Blood Pressure 131/54 H 131/54 H Blood Pressure Mean 79 72 Pulse Ox 96 91 91 Oxygen Delivery Method Nasal Cannula Nasal Cannula Oxygen Flow Rate (L/min) 4 4 03/10/25 19:30 03/10/25 20:00 03/10/25 20:00 Temperature Temperature Source Pulse Rate 56 L 55 L 55 L Respiratory Rate 20 H 19 H 20 H Respiratory Effort Respiratory Pattern Blood Pressure 114/43 L 131/68 H 131/68 H Blood Pressure Mean 66 89 84 Pulse Ox 91 91 91 Oxygen Delivery Method Nasal Cannula Oxygen Flow Rate (L/min) 03/10/25 20:30 03/10/25 21:00 03/10/25 21:30 Temperature 98.5 F Temperature Source Oral Pulse Rate 55 L 66 55 L Respiratory Rate 22 H 20 H 14 Respiratory Effort Respiratory Pattern Blood Pressure 129/50 H 126/62 H 101/70 Blood Pressure Mean 74 83 80 Pulse Ox 91 92 92 Oxygen Delivery Method Nasal Cannula Nasal Cannula Oxygen Flow Rate (L/min) 4 4 MDM MDM MDM Narrative Medical decision making narrative: Patient is a 64-year-old female who presented to the emergency department chief complaint of high fevers at home, generalized weakness not feeling well. Patient was noted to be hypoxic in triage at 86% she is not normally on oxygen she was placed on nasal cannula. On the differential diagnose includes but not limited to pneumothorax, pneumonia, upper respiratory infection, viral etiology, PE, cellulitis however clinically this does appear to be resolved. Once workup is obtained reviewed she will be reevaluated. Patient be given 30 cc/kg bolus of IV fluids this was ordered at 1625. Patient does have allergy to contrast however she states that she can get she has to be premedicated therefore she will be given Solu-Medrol and Benadryl. Patient's clinical record was reviewed and she was here recently she was given dose of Unasyn and was discharged on Keflex for a left foot cellulitis. Patient's CBC was reviewed and showed a leukocytosis of 11,000, he was 10.4, platelet count was 233. Patient's INR 1.1, PT of 14.3. Patient sodium was 138, potassium normal at 4.5, creatinine was 1.71. Patient's lactic acid normal at less than 1, AST and ALT are 1412 respectively, proBNP was elevated 2246, TSH normal at 4.46, free T4 of 1.50. Patient urinalysis reviewed and showed no evidence of infection. Patient's CTA of her chest was reviewed showed no PE however there was groundglass opacities and small consolidations throughout the bilateral lungs greatest within the right upper lobe most compatible with pneumonia. Small right and trace left pleural effusion severe coronary artery calcifications noted. I called and spoke with on-call wheel lacer and truer Dr Jhaveri who reviewed her EKG as this was abnormal and he notes that this is a left posterior fascicular block second-degree and would recommend transfer to a tertiary care center where a pacemaker could be placed. Patient is hypoxic and still requiring 4 L nasal cannula otherwise she remains hemodynamically stable. Patient was given Rocephin and azithromycin at 1908. Patient was complaining of a headache therefore she was given a gram of Tylenol. At 7:00 PM reperfusion assessment was performed and she remains normotensive therefore no vasopressors indicated. I reach out to [facility] as she states that she has had care there in the past and had discussion with the transfer line who ultimately connected me with Dr. Lemons who accept the patient for admission. I updated the patient of this plan and she is agreeable to plan all question concerns answered at bedside. Lab Data Labs: Laboratory Results - last 24 hr 03/10/25 03/10/25 03/10/25 16:20 16:40 18:30 WBC 11.8 H RBC 3.65 L Hgb 10.4 L Hct 32.0 L MCV 87.7 MCH 28.5 MCHC 32.5 RDW Std Deviation 43.0 RDW Coeff of Eimlio 13.5 Plt Count 233 MPV 10.8 Immature Gran % (Auto) 0.600 Neut % (Auto) 73.3 H Lymph % (Auto) 12.5 L [place] % (Auto) 10.3 H Eos % (Auto) 2.6 Baso % (Auto) 0.7 Absolute Neuts (auto) 8.6 H Absolute Lymphs (auto) 1.47 Nucleated RBC % 0 PT 14.3 INR 1.1 APTT 33.7 Sodium 138 Potassium 4.5 Chloride 101 Carbon Dioxide 24.3 Anion Gap 12 BUN 23 H Creatinine 1.71 H Estim Creat Clear Calc 39.72 L Est GFR (MDRD) Non-Af 33 L BUN/Creatinine Ratio 13.6 Glucose 252 H Lactic Acid < 1.0 Calcium 9.5 Total Bilirubin 0.31 AST 14 ALT 12 Alkaline Phosphatase 75 NT pro BNP II 2246 H Total Protein 7.2 Albumin 3.7 Globulin 3.6 Albumin/Globulin Ratio 1.0 TSH 4.460 H Free T4 1.50 H Free T3 pg/dL 2.3 Urine Color Yellow Urine Clarity Clear Urine pH 5.0 Ur Specific [place] 1.020 Urine Protein 30 H Urine Glucose (UA) Normal Urine Ketones Negative Urine Occult Blood Negative Urine Nitrite Negative Urine Bilirubin Negative Urine Urobilinogen Normal Ur Leukocyte Esterase Negative Urine RBC 0 SEEN Urine WBC 0-5 SEEN Ur Squamous Epith Cells 0-5 SEEN Urine Bacteria 0 SEEN Urine Mucus 0 SEEN Radiography Diagnostic Testing: Clinical Impression(s) from Imaging Studies Abdomen/Pelvis CT 03/10/25 16:34 IMPRESSION: No acute abdominopelvic finding. Reading Location: [facility] Chest CTA 03/10/25 16:34 IMPRESSION: 1. No acute pulmonary embolism. 2. Ground-glass opacities and small consolidations throughout the bilateral lungs, greatest within the right upper lobe, most compatible with pneumonitis/pneumonia. 3. Small right and trace left pleural effusions. 4. Severe coronary artery calcifications. Reading Location: [facility] Discharge Plan Triage Chief Complaint: Fever ED Provider: Cong Carter Dx/Rx/DC Orders Clinical Impression: Pneumonia, Pleural effusion, Acute hypoxic respiratory failure, Left posterior fascicular block (LPFB) determined by electrocardiography Prescriptions: No Action biotin 5,000 mcg tablet,disintegrating 15,000 mcg PO DAILY vitamin B complex [B Complex-Vitamin B12] Tablet 1 tab PO DAILY zinc gluconate 50 mg tablet 50 mg PO DAILY ascorbic acid (vitamin C) 500 mg capsule 500 mg PO QDAY cholecalciferol (vitamin D3) 25 mcg (1,000 unit) capsule 25 mcg PO QDAY oxycodone-acetaminophen 5-325 mg tablet 1 tab PO Q6H PRN (Reason: pain) metformin 500 mg tablet 500 mg PO QDAY PRN (Reason: pain) Patient Comments: After steroid injections by pain management ondansetron HCl 8 mg tablet 8 mg PO Q6H PRN (Reason: nausea and vomiting) Qty: 20 1RF nystatin [Nystop] 100,000 unit/gram powder 1 applic topical TID PRN (Reason: Skin Cleansing) Qty: 30 1RF carvedilol 3.125 mg tablet 3.125 mg PO BID sennosides-docusate sodium [Stool Softener-Stimulant Laxat] 8.6-50 mg Tablet 2 tab PO BID PRN PRN (Reason: Constipation) Qty: 0 0RF fluticasone propionate 50 mcg/actuation [place],Suspension 1 spray INTRANASAL BID PRN (Reason: Sinus Symptoms) Rx Instructions: administer into each nostril aspirin 81 mg capsule 81 mg PO DAILY Probiotic 15 billion cell capsule 4 cap PO DAILY cephalexin 500 mg capsule 500 mg PO Q6 Qty: 40 0RF calcium carbonate 600 mg calcium (1,500 mg) tablet 600 mg PO BID lisinopril 10 mg tablet 10 mg PO DAILY rosuvastatin 20 mg tablet 20 mg PO DAILY hydroxychloroquine 200 mg tablet 200 mg PO BID Qty: 60 1RF amlodipine 10 mg tablet 10 mg PO BID Qty: 90 3RF levothyroxine [Euthyrox] 88 mcg tablet 88 mcg PO DAILY Qty: 90 3RF venlafaxine 75 mg tablet 75 mg PO DAILY Qty: 90 1RF venlafaxine [Effexor XR] 150 mg capsule,extended release 24hr 150 mg PO DAILY Qty: 90 1RF famotidine 40 mg tablet 40 mg PO QHS Qty: 90 1RF glipizide 10 mg tablet extended release 24hr 10 mg PO BID Qty: 180 3RF clopidogrel 75 mg tablet 75 mg PO DAILY Qty: 90 3RF doxycycline hyclate 100 mg tablet 100 mg PO BID Qty: 14 0RF Rx Instructions: Take on an empty stomach with a couple of crackers and a small glass of water. Do not eat or drink for 30 minutes after taking. Do not take with dairy products. Primary Care Provider: Kimi López Referrals: Kimi López MD [Primary Care Provider] - Print Language: Nigerian Disposition Disposition: DC/Tx to Another Type of HCF
[2025-03-10 18:36] LABS: Bacteria 0 SEEN /hpf (None Seen); Mucous, Urine 0 SEEN /hpf (<or=2+); Red Blood Cells-Urine 0 SEEN /hpf (0-5)
[2025-03-10 18:40] LABS: Color, Urine Yellow (Yellow); Glucose, Dipstick Normal (Normal); Ketone-Dipstick Negative (Negative); Leukocyte Esterase-Dipstick Negative /ul (Negative); Nitrite-Dipstick Negative (Negative); Occult Blood-Urine Negative /ul (Negative); Protein-Dipstick 30 mg/dl (Negative); Urine Bilirubin Dipstick Negative (Negative); Urine Clarity Clear (Clear); Urine Urobilinogen Normal (Normal)
[2025-03-10 18:44] LABS: Free T3 2.3 pg/mL (2.18-3.98)
[2025-03-10 18:46] LABS: Squamous Epithelial Cells - UA 0-5 SEEN /hpf (5-10); White Blood Cells 0-5 SEEN /hpf (0-5)
[2025-03-10] MEDS: Ceftriaxone 2 GM in 0.9% Normal Saline (50mL MB+) 50 ML IV (19:38)
[2025-03-10] MEDS: Azithromycin 500 MG in 0.9% Normal Saline (250mL Bag) 250 ML 255 MG IV (20:44)
[2025-03-10] MEDS: Acetaminophen 500 MG Tablet 1000 MG PO (21:30)
--- NOTE | 2025-03-10 21:43 | PCA ---
PT ACCEPTED [facility] [phone]
[2025-03-11] VITALS: BP 132/49; PULSE 49; RESP 23; O2SAT 91
[2025-03-11 00:09] LABS: Bedside Glucose 266 mg/dL (74-106)
[2025-03-11 00:20] VITALS: BP 132/49; PULSE 54; RESP 21; O2SAT 92
[2025-03-11 00:30] VITALS: BP 138/48; PULSE 52; RESP 21; O2SAT 92
[2025-03-11 01:00] VITALS: BP 110/41; PULSE 57; RESP 18; O2SAT 92
[2025-03-11 01:30] VITALS: BP 119/70; PULSE 55; RESP 14; O2SAT 90
[2025-03-11 02:00] VITALS: BP 119/74; PULSE 56; RESP 14; O2SAT 91
== END 2025-03-11 02:27 | disposition other institution (70) ==
PROVIDERS: Emergency Provider Emergency Medicine; PCP Internal Medicine; Referring Provider Emergency Medicine; Visit Provider Emergency Medicine
DX: J18.9 Pneumonia, unspecified organism (principal); J96.01 Acute respiratory failure with hypoxia; E11.40 Type 2 diabetes mellitus with diabetic neuropathy, unspecified; E11.22 Type 2 diabetes mellitus with diabetic chronic kidney disease; N18.30 Chronic kidney disease, stage 3 unspecified; J90 Pleural effusion, not elsewhere classified; Z83.3 Family history of diabetes mellitus; Z87.891 Personal history of nicotine dependence; I44.5 Left posterior fascicular block; I12.9 Hypertensive chronic kidney disease with stage 1 through stage 4 chronic kidney disease, or unspecified chronic kidney disease; Z98.1 Arthrodesis status; Z95.5 Presence of coronary angioplasty implant and graft; Z90.49 Acquired absence of other specified parts of digestive tract; Z86.16 Personal history of COVID-19; I25.2 Old myocardial infarction; I25.10 Atherosclerotic heart disease of native coronary artery without angina pectoris; Z95.1 Presence of aortocoronary bypass graft; E03.9 Hypothyroidism, unspecified; L03.116 Cellulitis of left lower limb; R50.9 Fever, unspecified
CPT/HCPCS: 71275; 74177; 80053; 81001; 82962; 83605; 83880; 84439; 84443; 84481; 85025; 85610; 85730; 87040; 87086; 93005; 96361; 96374; 96375; 99284; Q9967; A4216; J0696

== ENCOUNTER → 2025-03-24 | Outpatient (CLI) | payer MEDICAID, SELFPAY ==
[2025-03-16 10:33] VITALS: BMI 28.5
[2025-03-24 18:10] LABS: Hemoglobin A1c 7.8 % (<=5.6)
== END | disposition home or self-care (01) ==
LOC: MTLAB 15:46
PROVIDERS: PCP Internal Medicine; Referring Provider Orthopaedic Surgery Orthopaedic Surgery of the Spine; Visit Provider Orthopaedic Surgery Orthopaedic Surgery of the Spine
DX: E11.9 Type 2 diabetes mellitus without complications (principal)
CPT/HCPCS: 36415; 83036

== ENCOUNTER → 2025-05-03 | Outpatient (CLI) | payer MEDICAID, SELFPAY ==
[2025-03-16 10:33] VITALS: BMI 28.5
== END | disposition home or self-care (01) ==
PROVIDERS: PCP Internal Medicine; Referring Provider Internal Medicine Cardiovascular Disease; Visit Provider Internal Medicine Cardiovascular Disease
DX: I25.10 Atherosclerotic heart disease of native coronary artery without angina pectoris (principal); R00.1 Bradycardia, unspecified
CPT/HCPCS: 93225; 93226

== ENCOUNTER → 2025-05-19 | Outpatient (CLI) | payer MEDICARE, SELFPAY ==
[2025-03-16 10:33] VITALS: BMI 28.5
== END | disposition home or self-care (01) ==
LOC: LABSPEC 16:53
PROVIDERS: PCP Internal Medicine; Visit Provider Podiatrist
DX: L03.031 Cellulitis of right toe (principal)
CPT/HCPCS: 87070; 87205

== ENCOUNTER → 2025-06-22 | Outpatient (CLI) | payer MEDICARE, SELFPAY ==
[2025-03-16 10:33] VITALS: BMI 28.5
[2025-06-22 10:25] LABS: Hematocrit 37.5 % (37-47); Hemoglobin 11.6 g/dL (12.0-15.0); Immature Granulocytes Count 0.050 X10^3/uL (0.0-0.0); Mean Corp Hgb Conc 30.9 g/dL (32-36); Mean Corpuscular Volume 86.0 fL (81-99); Mean Platelet Vol. 10.9 fl (6.2-12.0); NRBC Flagged by Analyzer 0 % (0-5); Platelet Count 261 K/mm3 (150-450); RBC Distribution Width CV 13.4 % (11.6-14.6); RBC Distribution Width SD 42.2 fl (35.1-43.9); Red Blood Count 4.36 M/mm3 (4.2-5.4); White Blood Count 12.0 K/mm3 (4.4-11.0)
[2025-06-22 11:01] LABS: AST(SGOT) 18 U/L (<=31); Alanine Aminotransfer ALT/SGPT 12 U/L (<=34); Albumin, Serum 4.1 g/dL (3.4-4.8); Alkaline Phosphatase 64 U/L (35-104); Anion Gap 14 (5-15); BUN 33 mg/dL (4-19); BUN/Creat Ratio 18.9 RATIO (10-20); Calcium,Total 10.6 mg/dL (7.6-11.0); Carbon Dioxide 23.3 mmol/L (21.0-32.0); Chloride 104 mmol/L (98-108); Cholesterol 121 mg/dL (<=200); Free T3 2.5 pg/mL (2.18-3.98); Globulin 3.4 g/dL (2.2-4.2); Glucose 132 mg/dL (70-99); Low Density Lipoprotein Calc. 40 mg/dL; Magnesium 1.7 mg/dL (1.5-2.2); Potassium 4.4 mmol/L (3.3-5.1); Triglycerides 167 mg/dL; Very Low Density Lipoprotein 33 mg/dL (5-40); Vitamin D,25 Hydroxy 53.7 ng/mL (30-100); cholesterol:hdl ratio screen 2.56
== END | disposition home or self-care (01) ==
LOC: MTLAB 08:06
PROVIDERS: PCP Internal Medicine; Referring Provider Internal Medicine; Visit Provider Internal Medicine
DX: M06.9 Rheumatoid arthritis, unspecified (principal); E11.22 Type 2 diabetes mellitus with diabetic chronic kidney disease; E11.42 Type 2 diabetes mellitus with diabetic polyneuropathy; N18.31 Chronic kidney disease, stage 3a; E55.9 Vitamin D deficiency, unspecified; I12.9 Hypertensive chronic kidney disease with stage 1 through stage 4 chronic kidney disease, or unspecified chronic kidney disease; Z13.220 Encounter for screening for lipoid disorders; E03.9 Hypothyroidism, unspecified
CPT/HCPCS: 36415; 80053; 80061; 82306; 83036; 83735; 84439; 84443; 84481; 85025

== ENCOUNTER 2025-06-23 14:00 | Outpatient (RCR) | payer MEDICARE, SELFPAY ==
[2025-03-16 10:33] VITALS: BMI 28.5
--- NOTE | 2025-05-18 07:04 | HP.PTEVAL_ITS ---
Patient's Visit Information Visit Information Visit Information: ESTELLA SU is a 65 year old F referred to Physical Therapy by Dr. Desmond Daly MD with a diagnosis of Back Pain. Date of Evaluation: 05/17/25 Physical Therapist: Leslie Crooks DPT Visit Plan Frequency: 2-3x /Week Duration: 4 Weeks Plan: Focus on functional mobility, pain mgmt and core strength/stabilization- can switch to aquatic therapy at pt preference Subjective Subjective: Pain is L groin and lateral leg and L LB. Has been there long time, not sure why it started. Has h/o back surgeries to clean up discs in [address] Daly said he would clean up again but needs 6 of PT and get A1c down. The previous back surgeries did help. The pain is aggravated by gravity- standing, sitting. She is the most comfortable laying on her back with her feet propped up. Worst: 10/10 Best: 7/10. Describe- the pain is sharp in the groin but the back is more achy- she has been to pain mgmt but it did not help. Sleep: I don't sleep good due to hip pain and sleep apnea and FM. Basic ADLs: all I but mom can help if painful. Spends most of the days laying bed. Work: not currently working. 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 PMHx/Meds: see chart. Objective Objective: Posture: forward head, rounded shoulders- can correct but does not maintain- guarded Gait: antalgic- decreased stance on her left LE- mild Trendelenburg and reports left groin pain with stance. HR/TR: able with UE A SLS: weight shift but does not SLS ROM: Lumbar: Flexion: hands to mid jo, Extn: neutral SB: moderate deficits Rotation: moderate deficits- reports pain with all movements. Hip: WFL in all planes with pain IR/ER bilateral Left>Right Palpation: tender along paraspinals, gluts and greater troch on the left. Strength: Core: poor, Hip: Flexion: 3+/5, Abd: 3+/5, Extn: 4-/5, Add: 4/5, Knee:4/5, Ankle: 4+/5 Flex: HS: moderate, Gastroc: moderate Special Tests L/S Slump test left side: Positive L/S Slump test right side: Positive L/S Left Straight Leg Raise: Positive L/S Right Straight Leg Raise: Positive L Hip LEWIS - Intraarticular Pathology: Positive L Hip FADDIR - Labrum: Positive Balance/Special Test Scores Oswestry Low Back Score: 28 Goals Goal 1:: Patient will be I with HEP and progression Goal Time Frame: 4-6 Weeks Goal 2:: Patient will maintain proper posture t/o tx session to demo increased core s/s Goal Time Frame: 4-6 Weeks Goal 3:: Patient will ambulate >150 feet with a normalized gait pattern Goal Time Frame: 4-6 Weeks Goal 4:: Patient will report 80% improvement Goal Time Frame: 4-6 Weeks Rehabilitation Potential Physical Therapy Diagnosis: Patient presents with decreased LE and core strength/stabilization, flex and muscular endurance leading to abnormal gait and increased pain with ADL's Rehabilitation Potential: Fair Anticipated Interventions Patient/Client Instruction: Educate patient on: Benefits of Fitness Program Therapeutic Exercise to Include: Strength training, Endurance training, Balance training, Coordination, Agility training, Body mechanics, Postural training, Fl exibilty training, Gait and locomotor training, Neuromotor development, Dynamic Lumbar Stabilization and Scapular Strength/Stabilization For the Purpose of:: To improve muscle performance and motor function TENS: Yes Cryotherapy (ice pack, ice massage): Yes Thermo therapy (hot pack): Yes Text: Thank you for the opportunity to evaluate your patient. For Medicare and Medicare HMO plans, please review the plan of care and approve it. It will need to be FAXED BACK to us at [phone] for Medicare purposes. For Medicare only, by signing this I certify the plan of care. Please let me know if there are questions or concerns regarding this plan of care. Physician Signature: Date:
--- NOTE | 2025-06-23 15:21 | HP.PTDCSUM ---
Discharge Summary D/C summary: It has been my pleasure to treat ESTELLA SU referred by Dr. Desmond Daly MD, with the diagnosis of Back Pain for a total of 9 visit(s). Discharge Date: Please see the following information for a summary of their discharge status. Subjective Subjective: Pt. is here today for her reassessment on her back and how she is improving with PT. She reports while she is doing her exercises in the pool she feels better, but when she gets out the pain is back to the same level by the time she gets to her car. Pt. reports spending most of her time lying down due to her pain. Pt. report that her mother helps her get dressed due to the pain. Pt. reports having some better days, but overall not better since starting PT. Pain L LE: Pain Intensity (Out of 10): 7 Overall Improvement % Improvement: 0 Objective Objective/Function: ROM: LUMBAR SPINE: flexion min loss increase NW, ext mod/max loss increase NW, BS min loss bilat increase NW, rotation mod loss increase NW. Pt. has no myotomal weakness in either distal LEs, B hips 4/5, core strength poor. GAIT: Pt. has poor ambulation with FWW. She has a general flexed posture with lean to L side, if she tries to correct she has increased pain. Pt. reports overall having a poor quality of life. Pt. reports lying down in her bed most of the day or sitting in a chair for brief periods. She is unable to walk very far due to her pain. No much progress has been made with PT at this point in time. Goals Goal 1:: Patient will be I with HEP and progression Goal Progress: Progressing Goal 2:: Patient will maintain proper posture t/o tx session to demo increased core s/s Goal Progress: Progressing Goal 3:: Patient will ambulate >150 feet with a normalized gait pattern Goal Progress: Not Progressing Goal 4:: Patient will report 80% improvement Goal Progress: Not Progressing Plan Plan: PT. to be DC from PT back to physician at this point in time due to minimal improvement with PT. D/C Information d/c sentence: If there are questions or concerns regarding this patient's physical therapy, please feel free to call me at [phone]. Thank you for the referral of this patient. Sincerely, Niko L Sipos, DPT Balance/Gait/Functional tests Balance/Special Test Scores Oswestry Low Back Score: 42 Improvement % Improvement: 0
== END 2025-06-23 19:00 | disposition home or self-care (01) ==
LOC: PT 14:00
PROVIDERS: PCP Internal Medicine; Referring Provider Orthopaedic Surgery Orthopaedic Surgery of the Spine; Visit Provider Orthopaedic Surgery Orthopaedic Surgery of the Spine
DX: M51.362 Other intervertebral disc degeneration, lumbar region with discogenic back pain and lower extremity pain (principal)
CPT/HCPCS: 97110; 97113; 97162; 97530

== ENCOUNTER → 2025-07-12 | Outpatient (CLI) | payer MEDICARE, SELFPAY ==
[2025-03-16 10:33] VITALS: BMI 28.5
--- NOTE | 2025-07-12 16:59 | MRI_ITS ---
PROCEDURE: SPINE LUMBAR (ROUTINE) 07/12/2025 REASON FOR EXAM: LUMBAR RADICULOPATHY TECHNIQUE: Procedure Code: MRISPL Modality: MR Procedure: SPINE LUMBAR (ROUTINE) COMPARISON: Radiographs February 2025. FINDINGS: T10 through T12: Vertebral bodies: Negative. Disk Space: Mild degenerate disc disease. Negative for Modic changes. Facet Joints: Negative for bilateral facet joint hypertrophy. Neural foramina: Negative for neural foraminal narrowing Spinal Canal: Negative for central spinal narrowing. T12-L1 and L1-L2: Vertebral bodies: Negative. Disk Space: Negative. Negative for Modic changes. Facet Joints: Slight bilateral facet joint hypertrophy. Neural foramina: Negative for neural foraminal narrowing Spinal Canal: Negative for subarticular zone narrowing. Negative for central spinal narrowing. L2-3: Vertebral bodies: Negative. Disk Space: Disc desiccation. Mild loss of disc height. Mild diffuse disc bulge. Negative for Modic changes. Facet Joints: Mild bilateral facet joint hypertrophy. Neural foramina: Mild bilateral neural foraminal narrowing Spinal Canal: Negative for subarticular zone narrowing. Negative for central spinal narrowing. L3-4: Vertebral bodies: Negative. Disk Space: Negative. Negative for Modic changes. Facet Joints: [id number] bilateral facet joint hypertrophy. Neural foramina: Slight bilateral neural foraminal narrowing Spinal Canal: Negative for subarticular zone narrowing. Negative for central spinal narrowing. L4-5: Vertebral bodies: Negative. Disk Space: Disc desiccation moderate loss of disc height. Negative for Modic changes. Facet Joints: [id number] bilateral facet joint hypertrophy. Neural foramina: Mild bilateral neural foraminal narrowing. Spinal Canal: Slight bilateral subarticular zone narrowing. Negative for central spinal narrowing. L5-S1: Vertebral bodies: Negative. Disk Space: Disc desiccation moderate loss of disc height. Mild diffuse disc bulge. Facet Joints: [id number] bilateral facet joint hypertrophy. Neural foramina: Mild bilateral neural foraminal narrowing Spinal Canal: Negative for subarticular zone narrowing. Negative for central spinal narrowing. Vertebrae: Normal bone marrow signal. Conus Medullaris: Spinal cord is normal and ends at L1-L2. Imaged kidneys aorta otherwise negative. The remainder of the exam negative. MRI/Spine Lumbar (Routine) IMPRESSION: Multilevel degenerative changes lumbar spine most prominent L4-5. Reading Location: [place] [id number]
== END | disposition home or self-care (01) ==
LOC: MRI 16:54
PROVIDERS: PCP Internal Medicine; Referring Provider Student in an Organized Health Care Education/Training Program; Visit Provider Student in an Organized Health Care Education/Training Program
DX: M54.16 Radiculopathy, lumbar region (principal)
CPT/HCPCS: 72148